=== PATIENT | male | born 1940 | race African-American/Black ===

== ENCOUNTER 2016-06-19 12:44 | Inpatient (IN) | payer MEDICARE, OTHER ==
[~2016-06-19] VITALS: Ht 185.4 cm; Wt 97.1 kg
[~2016-06-19 12:44] MED LIST: ACETAMINOPHEN325 M1 ORAL; ALLOPURINOL100 M1 ORAL; ALLOPURINOL300 M1 ORAL; AMLODIPINE BESYL5 MG ORAL; ASPIR 8181 MG ORAL; ASPIRIN EC81 MG ORAL; ATORVASTATIN CA20 MG ORAL; AVODART0.5 MG ORAL; CATAPRES0.1 MG ORAL; CLOBETASOL PROP15 G1 TOPIC; CLONIDINE0.1 MG ORAL; COMPAZINE25 MG RECTAL; DIOVAN80 MG ORAL; DOCUSATE SODIU100 MG ORAL; DOCUSATE SODIU250 MG ORAL; DRISDOL50000 UNIT ORAL; FEOSOL325 MG ORAL; FERROUS SULFAT325 M2 ORAL; FERROUS SULFAT325 MG ORAL; FINASTERIDE5 MG ORAL; FLOMAX0.4 MG ORAL; FLUCONAZOLE100 MG ORAL; GABAPENTIN300 MG ORAL; HYDROCHLOROTHIA25 MG ORAL; HYDROCODON-ACE1 EA13 ORAL; HYTRIN2 MG PO; IBUPROFEN600 MG ORAL; IMODIUM2 MG ORAL; INVANZ1 GM IVPB; KEFLEX500 MG ORAL; LEVAQUIN750 MG ORAL; LIPITOR20 MG ORAL; LOMOTIL TABLET1 EACH ORAL; LOPRESSOR25 M1 ORAL; LOVASTATIN40 MG ORAL; LOVENOX150 MG/1 M SUBQ; LYRICA50 MG ORAL; LYRICA75 M1 ORAL; Lidocaine TDERMAL; MARINOL2.5 MG ORAL; MARINOL5 MG ORAL; METRONIDAZOLE250 MG ORAL; METRONIDAZOLE500 MG ORAL; NITROFURANTOIN100 M2 ORAL; NORCO 10/3251 EA ORAL; NORCO 5-325 TA1 EACH ORAL; NORTRIPTYLINE H25 MG ORAL; NORVASC5 MG ORAL; OMEPRAZOLE20 M2 ORAL; OMEPRAZOLE20 M3 ORAL; PAMELOR25 MG ORAL; PROCHLORPERAZINE5 MG ORAL; PROMETH-CODEIN 65 ML PO; PROSCAR5 MG ORAL; RANITIDINE HCL150 MG ORAL; RENAGEL400 MG ORAL; TAMSULOSIN HCL0.4 MG ORAL; THIAMINE HCL100 MG ORAL; UNKNOWN BP MED; UNOBMED; VANCOMYCIN HCL125 MG PO; VANCOMYCIN250 MG/5 M ORAL; ZOVIRAX400 MG ORAL; ZYVOX600 MG ORAL
[2016-06-19] MEDS ORDERED: LANSOPRAZOLE15 MG ORAL (13:08)
[2016-06-19] MEDS ORDERED: ZOFRAN4 M3 ORAL (13:08)
[2016-06-19] MEDS ORDERED: ACYCLOVIR400 MG ORAL (13:08)
[2016-06-19] MEDS ORDERED: THALOMID50 MG PO (13:08)
--- NOTE | 2016-06-19 13:23 | Emergency Room Report ---
History of Present Illness General Chief Complaint: Lower Extremity Injury Source: Patient Present Illness HPI 75 YOM presents with bilateral lower extremity weakness, edema and left sided abd pain. States he "is still being treated for Cdiff" from previous admission and c/o continuous watery diarrhea. Denies fever/chills, rash, redness to extremities. Denies history of CHF. States he has had cardiac bypass in the past. Presents with large bag of his medications. Otherwise denies chest pain , SOB, dysuria, headache. Allergies: Coded Allergies: No Known Allergies (Unverified , 04/23/13) Patient History Past Medical History: see triage record, old chart reviewed, CAD, other - Cdiff Past Surgical History: none Pertinent Family History: none Social History: Denies: alcohol use, drug use, smoking Reviewed Nursing Documentation: PMH: Agreed, PSxH: Agreed Nursing Documentation-PMH Hx Cardiac Problems: Yes - [facility] Hx Hypertension: Yes Hx Pacemaker: No - C-DIFF,MYELOMA,CA Hx Asthma: No Hx COPD: No Hx Diabetes: No Hx Cancer: Yes - mulitple myeloma Hx Gastrointestinal Problems: Yes - appendectomy 2016, Chronic abdominal pain, Hx Dialysis: No Hx Neurological Problems: No Hx Cerebrovascular Accident: No Hx Seizures: No Hx Dizziness: No Hx Syncope: No Hx Headaches: No Review of Systems All Other Systems: negative except mentioned in HPI Physical Exam Vital Signs Date Time Temp Pulse Resp B/P Pulse Ox O2 Delivery O2 Flow Rate FiO2 06/19/16 12:29 98.2 64 16 145/64 98 Room Air Sp02 EP Interpretation: reviewed, normal General Appearance: normal inspection, well appearing, no apparent distress, alert Head: atraumatic ENT: normal ENT inspection, hearing grossly normal, normal voice Neck: normal inspection, full range of motion, supple, no bony tend Respiratory: normal inspection, lungs clear, normal breath sounds, no respiratory distress, no retraction, no wheezing Cardiovascular #1: regular rate, rhythm, no edema Gastrointestinal: normal inspection, normal bowel sounds, soft, no guarding, no hernia, other - Mild left sided abd ttp. No rebound, guarding. Genitourinary: no CVA tenderness Musculoskeletal: normal inspection, back normal, normal range of motion, Armond' s Sign negative Neurologic: normal inspection, alert, oriented x3, responsive, streets and buildings decorator III-XII nml as tested, motor strength/tone normal, speech normal Psychiatric: normal inspection, judgement/insight normal, mood/affect normal Skin: normal inspection, normal color, no rash, other - Bilateral lower extremities: shiny, hairless. 1+ pitting edema to mid calf. No erythema or sign of infection Medical Decision Making Medicare Attestation I Erica Linda MD hereby attest that the medical record entry for date of service, 05/10/16 accurately reflects signatures/notations that I made in my capacity as MD when I treated/diagnosed the above listed Medicare beneficiary. I attest that this information is true, accurate and complete to the best of my knowledge. I understand that any falsification, omission, or concealment of material fact may subject me to administrative, civil, or criminal liability. This patient warrants hospital admission for extreme of age and has a condition that cannot be treated as outpatient. Diagnostic Impression: Primary Impression: Edema Qualified Codes: R60.9 - Edema, unspecified Additional Impressions: Abdominal pain Qualified Codes: R10.32 - Left lower quadrant pain Diarrhea Qualified Codes: R19.7 - Diarrhea, unspecified CKD (chronic kidney disease) Qualified Codes: N18.9 - Chronic kidney disease, unspecified ER Course 75 YO M with acute on chronic bilateral leg swelling and weakness. No sign of infection. VSS. Afebrile. Lymphadema vs CHF vs cellulitis unlikely Left sided abd pain with watery diarrhea and recent tx for CDIFF: Patient placed on isolation. CDIFF assay pending. Will do CTAP Labs: No leuks. H&H stable. Mild elevated serumCr (similar to previous, possible baseline) Will endorse to Dr Villagomez at 319pm CTAP pending at time of endorsement; asked Dr Melgoza to followup result and inform Dr Villagomez EKG Diagnostic Results Rate: normal Rhythm: NSR ST Segments: no acute changes ASA given to the pt in ED: No Rhythm Strip Diag. Results EP Interpretation: yes Rate: 78 Rhythm: NSR, no PVC's, no ectopy Chest X-Ray Diagnostic Results EP Interpretation: Yes Findings: no consolidation, no effusion, no pneumothorax, no acute cardiopulmonary disease Number of Views: 1 Last Vital Signs Date Time Temp Pulse Resp B/P Pulse Ox O2 Delivery O2 Flow Rate FiO2 06/19/16 12:29 98.2 64 16 145/64 98 Room Air Status: improved Disposition: ADMITTED INPATIENT Condition: Serious ERICA LINDA M.D. Jun 19, 2016 13:23
[2016-06-19 14:52] LABS: BASOPHILS % (AUTO) 2.3 % (0.0-2.0); EOSINOPHILS % (AUTO) 0.4 % (0.0-3.0); LYMPHOCYTES % (AUTO) 18.3 % (20.0-45.0); MEAN CORPUSCULAR HEMOGLOBIN 31.9 PG (27.0-31.0); MEAN CORPUSCULAR HGB CONC 31.7 G/DL (32.0-36.0); MEAN CORPUSCULAR VOLUME 101 FL (80-99); MEAN PLATELET VOLUME 9.6 FL (6.5-10.1); MONOCYTES % (AUTO) 15.3 % (1.0-10.0); NEUTROPHILS % (AUTO) 63.7 % (45.0-75.0); PLATELET COUNT 122 K/UL (150-450); RED BLOOD COUNT 3.57 M/UL (4.70-6.10); RED CELL DISTRIBUTION WIDTH 14.9 % (11.6-14.8); WHITE BLOOD COUNT 7.7 K/UL (4.8-10.8)
[2016-06-19 15:07] LABS: TROPONIN I < 0.30 ng/mL (<=0.30)
[2016-06-19 15:09] LABS: ALANINE AMINOTRANSFERASE 26 U/L (3-41); ALBUMIN/GLOBULIN RATIO 1.6 (1.0-2.7); ANION GAP 16 (5-15); ASPARTATE AMINO TRANSFERASE 18 U/L (5-40); CALCIUM 8.8 mg/dL (8.6-10.2); CARBON DIOXIDE 22 mEQ/L (20-30); CHLORIDE 104 mEQ/L (98-107); CREATININE 1.3 mg/dL (0.7-1.2); HEMOLYSIS 7; SODIUM 142 mEQ/L (135-145); TOTAL PROTEIN 5.9 g/dL (6.6-8.7)
[2016-06-19 15:14] LABS: CKMB 1.6 ng/mL (< 6.7)
[2016-06-19 15:32] VITALS: BP 161/85
[2016-06-19] MEDS ORDERED: Nitroglycerin Subl 0.4mg tab (Bottle Of 25) SL PRN (16:00)
[2016-06-19] MEDS ORDERED: Miralax 17gm pkt ORAL PRN (16:00)
[2016-06-19] MEDS ORDERED: Lyrica 75mg cap ORAL PRN (16:00)
[2016-06-19] MEDS ORDERED: Mylanta II UD 30ml ORAL PRN (16:00)
--- NOTE | 2016-06-19 16:08 | Consultation ---
History of Present Illness General Date patient seen: Jun 19, 2016 Chief Complaint: Lower Extremity Injury Reason for Consultation: difficulty breathing Present Illness HPI 75 YOM presents with bilateral lower extremity weakness, edema and left sided abd pain. The patient says his abdominal pain was affecting his breathing, the patient states he has had more trouble breathing since his abdominal pain started. Patient denies any recent pnumonia or sputum production. Also denies cough, but admits to a 1 pack a day smoking habit since early adolescence. Patient also states he has had cardiac bypass in the past. Allergies: Coded Allergies: No Known Allergies (Unverified , 04/23/13) Medication History Scheduled Acyclovir* (Acyclovir*), 400 MG ORAL BID, (Reported) Allopurinol* (Allopurinol*), 300 MG ORAL DAILY Amlodipine Besylate (Norvasc), 5 MG ORAL DAILY Aspirin Ec* (Aspirin Ec*), 81 MG ORAL DAILY Atorvastatin Calcium* (Lipitor*), 20 MG ORAL BEDTIME Clonidine Hcl* (Catapres*), 0.1 MG ORAL EVERY 6 HOURS, (Reported) Diphenoxylate Hcl/Atropine (Lomotil Tablet), 5 MG ORAL TID Dronabinol* (Marinol*), 5 MG ORAL BID Ferrous Sulfate (Feosol), 325 MG ORAL DAILY Finasteride (Finasteride), 5 MG ORAL DAILY Lansoprazole* (Lansoprazole*), 15 MG ORAL DAILY, (Reported) Metoprolol Tartrate (Metoprolol Tartrate), 25 MG ORAL Q12HR Nortriptyline HCl (Nortriptyline HCl), 25 MG ORAL QHS Ranitidine Hcl* (Zantac*), 150 MG ORAL BEDTIME Tamsulosin HCl (Flomax), 0.4 MG ORAL BID Thalidomide (Thalomid), 50 MG PO DAILY, (Reported) Scheduled PRN Acetaminophen* (Acetaminophen*), 650 MG ORAL Q4H PRN Clonidine HCl (Clonidine HCl), 0.1 MG ORAL Q8H PRN for sbp>170 Hydrocodone Bit/Acetaminophen 10-325* (Hydrocodon-Acetaminophn 10-325*), 1 EA ORAL Q6H PRN for Severe Pain (Pain Scale 7-10) Loperamide HCl (Loperamide), 2 MG ORAL Q8H PRN for Diarrhea Ondansetron* (Zofran*), 4 MG ORAL Q6H PRN for Nausea & Vomiting, (Reported) Pregabalin* (Lyrica*), 75 MG ORAL BID PRN for nerve pain Discontinued Medications Nitrofurantoin Monohyd/M-Cryst* (Macrobid 100 Mg*), 100 MG ORAL EVERY 12 HOURS Discontinued Reason: MD discontinued med Patient History Healthcare decision maker Resuscitation status Advanced Directive on File Review of Systems Constitutional: Reports: malaise, weakness Respiratory: Reports: cough, shortness of breath Gastrointestinal: Reports: abdominal pain, nausea Physical Exam General Appearance: no apparent distress Lines, tubes and drains: peripheral HEENT: normocephalic, atraumatic, anicteric, PERRL Neck: non-tender, normal alignment Respiratory/Chest: chest wall non-tender, normal breath sounds, no respiratory distress, decreased breath sounds Breasts: no masses Cardiovascular/Chest: normal peripheral pulses, normal rate, regular rhythm Abdomen: normal bowel sounds, non tender, soft, no organomegaly Genitourinary/Rectal: normal genital exam, normal rectal exam Extremities: normal range of motion Skin Exam: normal pigmentation Neurologic: principal clerk II-XII grossly normal, no motor/sensory deficits Last 24 Hour Vital Signs Date Time Temp Pulse Resp B/P Pulse Ox O2 Delivery O2 Flow Rate FiO2 06/19/16 15:32 98.3 65 18 161/85 99 Room Air 06/19/16 12:29 98.2 64 16 145/64 98 Room Air Laboratory Tests Test 06/19/16 14:30 White Blood Count 7.7 K/UL (4.8-10.8) Red Blood Count 3.57 M/UL (4.70-6.10) L Hemoglobin 11.4 G/DL (14.2-18.0) L Hematocrit 36.0 % (42.0-52.0) L Mean Corpuscular Volume 101 FL (80-99) H Mean Corpuscular Hemoglobin 31.9 PG (27.0-31.0) H Mean Corpuscular Hemoglobin Concent 31.7 G/DL (32.0-36.0) L Red Cell Distribution Width 14.9 % (11.6-14.8) H Platelet Count 122 K/UL (150-450) L Mean Platelet Volume 9.6 FL (6.5-10.1) Neutrophils (%) (Auto) 63.7 % (45.0-75.0) Lymphocytes (%) (Auto) 18.3 % (20.0-45.0) L Monocytes (%) (Auto) 15.3 % (1.0-10.0) H Eosinophils (%) (Auto) 0.4 % (0.0-3.0) Basophils (%) (Auto) 2.3 % (0.0-2.0) H Sodium Level 142 mEQ/L (135-145) Potassium Level 4.0 mEQ/L (3.4-4.9) Chloride Level 104 mEQ/L (98-107) Carbon Dioxide Level 22 mEQ/L (20-30) Anion Gap 16 (5-15) H Blood Urea Nitrogen 13 mg/dL (7-23) Creatinine 1.3 mg/dL (0.7-1.2) H Estimat Glomerular Filtration Rate mL/min (>60) Glucose Level 91 mg/dL (74-106) Calcium Level 8.8 mg/dL (8.6-10.2) Total Bilirubin 0.7 mg/dL (0.0-1.2) Aspartate Amino Transf (AST/SGOT) 18 U/L (5-40) Alanine Aminotransferase (ALT/SGPT) 26 U/L (3-41) Alkaline Phosphatase 89 U/L (40-129) Total Creatine Kinase 70 U/L (38-174) Creatine Kinase MB 1.6 ng/mL (< 6.7) Creatine Kinase MB Relative Index 2.2 Troponin I < 0.30 ng/mL (<=0.30) Pro-B-Type Natriuretic Peptide 368 pg/mL (0-450) Total Protein 5.9 g/dL (6.6-8.7) L Albumin 3.7 g/dL (3.5-5.2) Globulin 2.2 g/dL Albumin/Globulin Ratio 1.6 (1.0-2.7) Height (Feet): 6 Height (Inches): 1.00 Weight (Pounds): 214 Medications Current Medications Medications (Trade) Dose Ordered Sig/Antionette Route PRN Reason Start Time Stop Time Status Last Admin Dose Admin Acetaminophen (Tylenol) 650 mg Q4H PRN ORAL fever 06/19/16 16:00 07/19/16 15:59 Al Hydroxide/Mg Hydroxide (Mylanta II) 30 ml Q6H PRN ORAL dyspepsia 06/19/16 16:00 07/19/16 15:59 Allopurinol (Zyloprim) 300 mg DAILY ORAL 06/20/16 09:00 07/20/16 08:59 UNV Amlodipine Besylate (Norvasc) 5 mg DAILY ORAL 06/20/16 09:00 07/20/16 08:59 Aspirin (Ecotrin) 81 mg DAILY ORAL 06/20/16 09:00 07/20/16 08:59 Atorvastatin Calcium (Lipitor) 20 mg BEDTIME ORAL 06/19/16 21:00 07/19/16 20:59 UNV Clonidine HCl (Catapres) 0.1 mg Q8H PRN ORAL sbp>170 06/19/16 16:00 07/19/16 15:59 Dextrose STAT PRN IV Hypoglycemia 06/19/16 16:00 07/19/16 15:59 Dextrose/Sodium Chloride (D5 0.45% NS) 1,000 ml @ 75 mls/hr [id number] IV 06/19/16 17:40 07/19/16 17:39 UNV Diphenhydramine HCl (Benadryl) 25 mg Q6H PRN ORAL Itching/Pruritis 06/19/16 16:00 07/19/16 15:59 Dronabinol (Marinol) 5 mg BID ORAL 06/19/16 18:00 07/19/16 17:59 UNV Finasteride (Proscar) 5 mg DAILY ORAL 06/20/16 09:00 07/20/16 08:59 Heparin Sodium (Porcine) (Heparin 5000 units/ml) 5,000 units EVERY 12 HOURS SUBQ 06/19/16 21:00 07/19/16 20:59 Metoprolol Tartrate (Lopressor) 25 mg Q12HR ORAL 06/19/16 21:00 07/19/16 20:59 Metronidazole (Flagyl) 100 ml @ 100 mls/hr Q8HR IVPB 06/19/16 22:00 06/26/16 21:59 UNV Morphine Sulfate (Morphine Sulfate) 2 mg EVERY 4 HOURS PRN IVP severe Pain (Pain Scale 7-10) 06/19/16 16:00 06/26/16 15:59 Nitroglycerin (Ntg) 0.4 mg Q5M X 3 DOSES PRN SL Prn Chest Pain 06/19/16 16:00 07/19/16 15:59 Nortriptyline HCl (Pamelor) 25 mg QHS ORAL 06/19/16 21:00 07/19/16 20:59 Ondansetron HCl (Zofran) 4 mg Q6H PRN IVP Nausea & Vomiting 06/19/16 16:00 07/19/16 15:59 Piperacillin Sod/ Tazobactam Sod 3.375 gm/Sodium Chloride 110 ml @ 220 mls/hr EVERY 6 HOURS IVPB 06/19/16 18:00 06/26/16 17:59 UNV Polyethylene Glycol (Miralax) 17 gm HSPRN PRN ORAL Constipation 06/19/16 16:00 07/19/16 15:59 Pregabalin (Lyrica) 75 mg BID PRN ORAL nerve pain 06/19/16 16:00 07/19/16 15:59 Tamsulosin HCl 0.4 mg 0.4 mg BID ORAL 06/19/16 18:00 07/19/16 17:59 Temazepam (Restoril) 15 mg HSPRN PRN ORAL Insomnia 06/19/16 16:00 06/26/16 15:59 Assessment/Plan Status: stable, progressing Assessment/Plan Assessment Cough and difficulty breathing secondary to abdominal pain Hx of tobacco smoking 1 pack/day more than 30 years HTN Plan O2 therapy Breathing tx as needed for SOB Anti-tussives as needed CXR preliminary reveals no acute infiltrate or edema. GOLDEN LIM Jun 19, 2016 16:08
[2016-06-19 17:13] VITALS: BP 150/80
[2016-06-19] MEDS: D5 1/2NS 1,000 ML IV SCH (18:02)
--- NOTE | 2016-06-19 18:24 | History & Physical ---
History and Physical History & Physicial Dictated for Int Med-Dr Villagomez no. [id number]. ELLY ELIAS Jun 19, 2016 18:24
[2016-06-19] MEDS: Tamsulosin 0.4mg cap ORAL SCH (18:58)
[2016-06-19] MEDS: Dronabinol 2.5mg Cap ORAL SCH (18:58)
[2016-06-19] MEDS: metroNIDAZOLE 500mg 100 ML IVPB SCH (18:58)
[2016-06-19 20:06] VITALS: BP 144/78
[2016-06-19] MEDS: Piperacillin/Tazobactam 3.375 GM in NS 110 ML IVPB SCH (20:36)
[2016-06-19] MEDS: Atorvastatin 20mg tab ORAL SCH (20:36)
[2016-06-19] MEDS: Metoprolol 25mg tab ORAL SCH (20:37)
[2016-06-19] MEDS: Heparin 5000 units/ml inj SUBQ SCH (20:38)
[2016-06-19] MEDS: Nortriptyline 25mg cap ORAL SCH (22:05)
[2016-06-19] MEDS: THALIDOMIDE 50 MG ORAL SCH (22:06)
[2016-06-19 23:59] VITALS: BP 125/69
[2016-06-20] MEDS: metroNIDAZOLE 500mg 100 ML IVPB SCH ×3 (01:42→20:14)
[2016-06-20 04:10] VITALS: BP 148/87
[2016-06-20] MEDS: Piperacillin/Tazobactam 3.375 GM in NS 110 ML IVPB SCH (05:04)
[2016-06-20] MEDS: D5 1/2NS 1,000 ML IV SCH ×2 (05:54→20:10)
[2016-06-20 07:29] LABS: EOSINOPHILS % (AUTO) 1.2 % (0.0-3.0); LYMPHOCYTES % (AUTO) 19.8 % (20.0-45.0); MEAN CORPUSCULAR HEMOGLOBIN 32.5 PG (27.0-31.0); MEAN CORPUSCULAR HGB CONC 32.7 G/DL (32.0-36.0); MEAN CORPUSCULAR VOLUME 99 FL (80-99); MEAN PLATELET VOLUME 8.9 FL (6.5-10.1); MONOCYTES % (AUTO) 15.1 % (1.0-10.0); PLATELET COUNT 124 K/UL (150-450); RED BLOOD COUNT 3.41 M/UL (4.70-6.10); RED CELL DISTRIBUTION WIDTH 14.3 % (11.6-14.8); WHITE BLOOD COUNT 5.7 K/UL (4.8-10.8)
[2016-06-20 08:00] VITALS: BP 148/88
[2016-06-20] MEDS: Heparin 5000 units/ml inj SUBQ SCH ×2 (08:01→20:16)
[2016-06-20 08:12] LABS: ALANINE AMINOTRANSFERASE 23 U/L (3-41); ALBUMIN/GLOBULIN RATIO 1.5 (1.0-2.7); AMYLASE 94 U/L (10-110); ANION GAP 16 (5-15); ASPARTATE AMINO TRANSFERASE 18 U/L (5-40); CALCIUM 9.2 mg/dL (8.6-10.2); CARBON DIOXIDE 23 mEQ/L (20-30); CHLORIDE 100 mEQ/L (98-107); CREATININE 1.3 mg/dL (0.7-1.2); HEMOLYSIS 10; LIPASE 30 U/L (< 60); POTASSIUM 4.1 mEQ/L (3.4-4.9); SODIUM 139 mEQ/L (135-145); TOTAL PROTEIN 5.6 g/dL (6.6-8.7)
--- NOTE | 2016-06-20 08:47 | History and Physical Report ---
DATE OF ADMISSION: 06/19/2016 CHIEF COMPLAINT: The patient is a 75-year-old male with history of amyloidosis of the GI tract who presents with complaint of leg swelling and bilateral leg weakness for one week. HISTORY OF PRESENT ILLNESS: The patient is a resident of a care home facility. The patient states he began to experience bilateral leg swelling and pain only prior to admission. The patient also has had watery diarrhea. The patient is worried his Clostridium difficile infection is back. The patient presented to [facility] emergency room. The patient was admitted for bilateral leg swelling to rule out acute deep venous thrombosis and diarrhea to rule out Clostridium difficile diarrhea. PAST MEDICAL HISTORY: Significant for, 1. Multiple myeloma, currently undergoing chemotherapy by Dr. Al. 2. Hypertension. 3. Anemia chronic disease. 4. History of prostate cancer. 5. History of coronary artery disease. 6. Amyloidosis of the gastrointestinal tract. PAST SURGICAL HISTORY: Significant for, 1. Perforated appendix with exploratory laparotomy and subsequent intra-abdominal abscess in 05/25/2015. 2. Prostatectomy in 2012. 3. Coronary artery bypass graft. CURRENT MEDICATIONS: 1. Tylenol 650 mg p.o. q.4 hours p.r.n. 2. Acyclovir 400 mg one tablet p.o. twice daily. 3. Allopurinol 300 mg one tablet p.o. daily. 4. Norvasc 5 mg one tablet p.o. daily. 5. Aspirin 81 mg one tablet p.o. daily. 6. Lipitor 20 mg one tablet p.o. at nightly. 7. Clonidine 0.1 mg one tablet p.o. q.8 hours p.r.n. 8. Lomotil one tablet p.o. three times daily. 9. Marinol 5 mg one tablet p.o. twice daily. 10. Iron sulfate 325 mg one tablet p.o. daily. 11. Finasteride 5 mg one tablet p.o. daily. 12. [place] 10/325 one tablet p.o. every 6 hours as needed. 13. Protonix 15 mg one tablet p.o. daily. 14. Imodium 2 mg p.r.n. diarrhea. 15. Metoprolol 25 mg one tablet p.o. twice daily. 16. Nortriptyline 25 mg one tablet p.o. at nightly. 17. Lyrica 75 mg one tablet p.o. twice daily. 18. Zantac 150 mg one tablet p.o. at nightly. 19. Flomax 0.4 mg one tablet p.o. twice daily. 20. 50 mg one tablet p.o. daily. ALLERGIES: No known drug allergies. SOCIAL HISTORY: The patient is a . The patient lives in a care home facility. The patient denies tobacco or alcohol use. PHYSICAL EXAMINATION: VITAL SIGNS: Temperature 98.2 degrees, respirations 16, pulse 64, blood pressure 145/64. GENERAL: The patient is a well-developed and well-nourished male, in no apparent distress. HEENT: Eyes pupils are equal and responsive to light and accommodation. Extraocular movements are intact. NECK: Supple without lymphadenopathy. CHEST: Lungs are clear to auscultation bilaterally without wheezes or rales. CARDIOVASCULAR: Regular rhythm and rate. S1, S2. No murmurs, rubs, or gallops. ABDOMEN: Soft, tender to palpation left upper quadrant otherwise no rebound or guarding noted. Positive bowel sounds are decreased. No evidence of hepatosplenomegaly . Currently, no rebound or guarding. EXTREMITIES: Bilateral trace edema. Otherwise, without clubbing or cyanosis. RECTAL: Refused. GENITAL: Refused. NEUROLOGIC: Cranial nerves II through XII are grossly intact without focal deficits. Motor strength is 5/5 bilaterally. Deep tendon reflexes 2+ plantar. LABORATORY STUDIES: WBC 7.7, hemoglobin 11.4, hematocrit 36.0, and platelets 122,000. Sodium 142, potassium 4.0, chloride 104, CO2 22, BUN 13, creatinine 1.3, and glucose 91. ASSESSMENT: This is a 75-year-old male, 1. Left upper quadrant pain. 2. Bilateral leg swelling. 3. Bilateral leg pain. 4. Weakness bilateral legs. 5. Diarrhea. 6. Gastrointestinal amyloidosis. 7. Multiple myeloma. 8. Hypertension. 9. Prostate cancer. 10. Coronary artery disease. 11. Anemia. TREATMENT: 1. Left upper quadrant pain. A Gastroenterology consultation with Dr. Rivera. The patient has a history of Clostridium difficile. A stool culture for Clostridium difficile is pending. 2. Bilateral leg swelling/pain/venous. A venous duplex Doppler bilateral lower extremities is pending to rule out deep venous thrombosis. This may be congestive heart failure secondary to coronary artery disease. BNP is pending. 3. Diarrhea as above. A Clostridium difficile culture is pending. A stool culture is pending as well. Gastroenterology consultation obtained with Dr. Rivera. Diarrhea may be secondary to gastrointestinal amyloidosis. 4. Gastrointestinal amyloidosis. A Gastroenterology consultation with Dr. Rivera. 5. Multiple myeloma. The patient is currently undergoing chemotherapy with Dr. Al. 6. Hypertension. Continue Norvasc as above. 7. History of prostate cancer. 8. Coronary artery disease. The patient is status post coronary artery bypass graft. 9. Anemia of chronic disease. Mando Schilling M.D. DR: Cynthia JOB#: [id number] CC:
[2016-06-20] MEDS: Aspirin EC 81mg tab ORAL SCH (09:31)
[2016-06-20] MEDS: Metoprolol 25mg tab ORAL SCH ×2 (09:31→20:16)
[2016-06-20] MEDS: Dronabinol 2.5mg Cap ORAL SCH ×2 (09:32→18:51)
[2016-06-20] MEDS: Tamsulosin 0.4mg cap ORAL SCH ×2 (09:32→18:52)
--- NOTE | 2016-06-20 10:06 | Diagnostic Imaging Report ---
Indications: Left lower quadrant abdominal pain Technique: Continuous helical CT imaging of the abdomen and pelvis was performed with automatic exposure control following administration of nonionic IV contrast only, on a Siemens sensation [address] scanner. Axial and coronal images were reconstructed at 5 mm slice thickness. No oral contrast was administered per requesting physician's order, despite no contraindications listed in either submitted clinical data or tech note.. CTDI volume(s): 19 mGy Total DLP: 1022 mGy-cm Findings: Comparison: 12/29/15 Lack of oral contrast limits evaluation of gastrointestinal tract, nondilated throughout. Linear metallic densities in the proximal gastric lumen. Stomach collapse. Distal mural thickening not excludable. Appendix absent. Surgical clips again noted adjacent to cecal tip. Apparent mural thickening of fluid distended segment of sigmoid colon on previous exam has significantly decreased. Some residual minimal mural thickening not excludable. No adjacent stranding, extraluminal gas or fluid collections. Gallbladder contracted, limiting evaluation. No obvious intraluminal stone, adjacent stranding or fluid. Again noted are small hiatal hernia, filter in infrarenal inferior vena cava, scattered arterial mural calcifications without obvious flow-limiting stenosis or occlusion, mild diffuse mural thickening of urinary bladder wall, enlarged prostate gland with central fluid-filled defect, anterior pelvic wall surgical incisional scar well-healed, all unchanged. Remainder visualized abdominopelvic anatomy demonstrates no other obvious acute abnormality. Subcentimeter calcified nodule again noted in anterior basal segment right pulmonary lower lobe. Small irregular pleural-based linear densities again noted and dependent portions both lung bases. Heart remains enlarged. Sternal wires again noted. Disc space narrowing with marginal osteophyte formation again noted in lumbar spine. Bilateral hip joint narrowing with marginal osteophyte formation, right subchondral cyst formation again noted. IMPRESSION: Limited evaluation gastrointestinal tract to lack of oral contrast, suboptimal distention. Pathologic mural thickening of distal stomach not excludable. Consider endoscopy for further evaluation as clinically indicated. Improvement in/resolution of apparent mural thickening of underdistended segment of sigmoid colon since previous exam. Residual minimal mural thickening not excludable, nonacute in appearance if real. No other evidence of acute abdominopelvic disease Stable chronic changes as described Written preliminary report placed in PACS 06/19/16 at 1618
--- NOTE | 2016-06-20 10:34 | Diagnostic Imaging Report ---
Indications: Chest pain Technique: Portable AP chest Findings: Comparison: 04/04/2016 Cardiac silhouette remains normal in size. Pulmonary vasculature remains within normal limits. Lungs and pleura remain clear. Mild calcification of the aortic arch, sternal wires and cardiomediastinal surgical clips again noted.. IMPRESSION: No evidence of acute disease, unchanged Stable chronic changes as described
[2016-06-20] MEDS: THALIDOMIDE 50 MG ORAL SCH (10:49)
--- NOTE | 2016-06-20 11:10 | Consultation ---
Consult Note Consult Note ID CONSULT: Mehran# [id number] Assessment/Plan ASSESSMENT: 75 y/o male with: // Chronic diarrhea 2/2 GI amyloidosis - negative C.difficile, improving per pt - CT A/P: Improvement in/resolution of apparent mural thickening of underdistended segment of sigmoid colon since previous exam. Residual minimal mural thickening not excludable. No other evidence of acute abdominopelvic disease - h/o repeatedly negative stool Cx, O&P, giardia // Afebrile without leukocytosis // Multiple myeloma // Intestinal amyloidosis // BLE edema r/o DVT ?h/o DVT ( evidence of IVC filter ) - doppler pending - BNP, albumin WNL // CAD SP CABG // CKD3 - stable // TCP // [facility] resident // MRSA, VRE colonized // NKDA // Full Code PLAN: - maria eugenia Can# 2, monitor pt off of ABX - f/u stool culture - f/u doppler - monitor CBC, temperatures - monitor BMP Thanks! Will follow MADELEINE GARCIA Jun 20, 2016 11:10
[2016-06-20 12:00] VITALS: BP 140/76
[2016-06-20 16:00] VITALS: BP 107/59
--- NOTE | 2016-06-20 18:43 | Internal Med Progress Note ---
Subjective Date of Service: Jun 20, 2016 Physician Name Mando Schilling Attending Physician Jovani Villagomez MD Current Medications Medications (Trade) Dose Ordered Sig/Antionette Route PRN Reason Start Time Stop Time Status Last Admin Dose Admin Acetaminophen (Tylenol) 650 mg Q4H PRN ORAL fever 06/19/16 16:00 07/19/16 15:59 Al Hydroxide/Mg Hydroxide (Mylanta II) 30 ml Q6H PRN ORAL dyspepsia 06/19/16 16:00 07/19/16 15:59 Allopurinol (Allopurinol) 300 mg DAILY ORAL 06/20/16 09:00 07/20/16 08:59 06/20/16 09:32 Amlodipine Besylate (Norvasc) 5 mg DAILY ORAL 06/20/16 09:00 07/20/16 08:59 06/20/16 09:31 Aspirin (Ecotrin) 81 mg DAILY ORAL 06/20/16 09:00 07/20/16 08:59 06/20/16 09:31 Atorvastatin Calcium (Lipitor) 20 mg BEDTIME ORAL 06/19/16 21:00 07/19/16 20:59 06/19/16 20:36 Clonidine HCl (Catapres) 0.1 mg Q8H PRN ORAL sbp>170 06/19/16 16:00 07/19/16 15:59 06/19/16 17:59 Dextrose STAT PRN IV Hypoglycemia 06/19/16 16:00 07/19/16 15:59 Dextrose/Sodium Chloride (D5 0.45% NS) 1,000 ml @ 75 mls/hr [id number] IV 06/19/16 17:30 07/19/16 17:29 06/20/16 05:54 Diphenhydramine HCl (Benadryl) 25 mg Q6H PRN ORAL Itching/Pruritis 06/19/16 16:00 07/19/16 15:59 Dronabinol (Marinol) 5 mg BID ORAL 06/19/16 18:00 07/19/16 17:59 06/20/16 09:32 Finasteride (Proscar) 5 mg DAILY ORAL 06/20/16 09:00 07/20/16 08:59 06/20/16 09:32 Heparin Sodium (Porcine) (Heparin 5000 units/ml) 5,000 units EVERY 12 HOURS SUBQ 06/19/16 21:00 07/19/16 20:59 Metoprolol Tartrate (Lopressor) 25 mg Q12HR ORAL 06/19/16 21:00 07/19/16 20:59 06/20/16 09:31 Metronidazole (Flagyl) 100 ml @ 100 mls/hr Q8H IVPB 06/19/16 18:00 06/26/16 17:59 06/20/16 09:32 Morphine Sulfate (Morphine Sulfate) 2 mg EVERY 4 HOURS PRN IVP severe Pain (Pain Scale 7-10) 06/19/16 16:00 06/26/16 15:59 Nitroglycerin (Ntg) 0.4 mg Q5M X 3 DOSES PRN SL Prn Chest Pain 06/19/16 16:00 07/19/16 15:59 Nortriptyline HCl (Pamelor) 25 mg QHS ORAL 06/19/16 21:00 07/19/16 20:59 06/19/16 22:05 Ondansetron HCl (Zofran) 4 mg Q6H PRN IVP Nausea & Vomiting 06/19/16 16:00 07/19/16 15:59 Patient Own Medication (Patient's Own Med) 1 ea DAILY ORAL 06/19/16 21:00 07/19/16 20:59 06/20/16 10:49 Polyethylene Glycol (Miralax) 17 gm HSPRN PRN ORAL Constipation 06/19/16 16:00 07/19/16 15:59 Pregabalin (Lyrica) 75 mg BID PRN ORAL nerve pain 06/19/16 16:00 07/19/16 15:59 Tamsulosin HCl 0.4 mg 0.4 mg BID ORAL 06/19/16 18:00 07/19/16 17:59 06/20/16 09:32 Temazepam (Restoril) 15 mg HSPRN PRN ORAL Insomnia 06/19/16 16:00 06/26/16 15:59 Allergies: Coded Allergies: No Known Allergies (Unverified , 04/23/13) ROS Limited/Unobtainable: No Constitutional: Reports: no symptoms HEENT: Reports: no symptoms Cardiovascular: Reports: no symptoms Respiratory: Reports: no symptoms Gastrointestinal/Abdominal: Reports: abdomen distended, abdominal pain, diarrhea Genitourinary: Reports: no symptoms Neurologic/Psychiatric: Reports: no symptoms Subjective 75 YO M admitted with abdominal pain and bilat leg swelling. Cover for Int Med- Dr Villagomez. Diarrhea improving. Objective Last Vital Signs Date Time Temp Pulse Resp B/P Pulse Ox O2 Delivery O2 Flow Rate FiO2 06/20/16 16:00 98.0 68 18 107/59 99 Room Air General Appearance: WD/WN, no apparent distress, alert EENT: PERRL/EOMI, normal ENT inspection Neck: non-tender, normal alignment, supple, normal inspection Cardiovascular: normal peripheral pulses, normal rate, regular rhythm, no gallop/murmur, no JVD Respiratory/Chest: chest wall non-tender, lungs clear, normal breath sounds, no respiratory distress, no accessory muscle use Abdomen: no organomegaly, no mass, decreased bowel sounds, distended, guarding , tender Extremities: normal range of motion Edema: trace edema 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 normal, no motor/sensory deficits Skin: normal pigmentation, warm/dry Laboratory Tests Test 06/20/16 04:40 White Blood Count 5.7 K/UL (4.8-10.8) Red Blood Count 3.41 M/UL (4.70-6.10) L Hemoglobin 11.1 G/DL (14.2-18.0) L Hematocrit 33.8 % (42.0-52.0) L Mean Corpuscular Volume 99 FL (80-99) Mean Corpuscular Hemoglobin 32.5 PG (27.0-31.0) H Mean Corpuscular Hemoglobin Concent 32.7 G/DL (32.0-36.0) Red Cell Distribution Width 14.3 % (11.6-14.8) Platelet Count 124 K/UL (150-450) L Mean Platelet Volume 8.9 FL (6.5-10.1) Neutrophils (%) (Auto) 62.0 % (45.0-75.0) Lymphocytes (%) (Auto) 19.8 % (20.0-45.0) L Monocytes (%) (Auto) 15.1 % (1.0-10.0) H Eosinophils (%) (Auto) 1.2 % (0.0-3.0) Basophils (%) (Auto) 2.0 % (0.0-2.0) Activated Partial Thromboplast Time 27 SEC (23-33) Sodium Level 139 mEQ/L (135-145) Potassium Level 4.1 mEQ/L (3.4-4.9) Chloride Level 100 mEQ/L (98-107) Carbon Dioxide Level 23 mEQ/L (20-30) Anion Gap 16 (5-15) H Blood Urea Nitrogen 12 mg/dL (7-23) Creatinine 1.3 mg/dL (0.7-1.2) H Estimat Glomerular Filtration Rate mL/min (>60) Glucose Level 91 mg/dL (74-106) Calcium Level 9.2 mg/dL (8.6-10.2) Total Bilirubin 1.0 mg/dL (0.0-1.2) Aspartate Amino Transf (AST/SGOT) 18 U/L (5-40) Alanine Aminotransferase (ALT/SGPT) 23 U/L (3-41) Alkaline Phosphatase 78 U/L (40-129) Total Protein 5.6 g/dL (6.6-8.7) L Albumin 3.4 g/dL (3.5-5.2) L Globulin 2.2 g/dL Albumin/Globulin Ratio 1.5 (1.0-2.7) Amylase Level 94 U/L (10-110) Lipase 30 U/L (< 60) Microbiology Date/Time Source Procedure Growth Status 06/19/16 17:30 Stool Clostridium difficile Toxin Assay - Final Complete Intake and Output 06/19/16 06/20/16 18:59 06:59 Intake Total 1200 ml Output Total 100 ml 700 ml Balance -100 ml 500 ml Intake Oral 600 ml IV Total 600 ml Output Urine Total 700 ml Stool Total 100 ml # Voids 2 # Bowel Movements 4 1 Assessment/Plan Problem List: (1) Leg pain, bilateral (2) Diarrhea Assessment & Plan: C. Diff neg. D/C antibiotics per ID. (3) Prostate cancer (4) LUQ abdominal pain Assessment & Plan: Due to amyloidosis (5) Multiple myeloma Assessment & Plan: Followed by Dr Al (6) Amyloidosis Assessment & Plan: Gastrointestinal-See GI note. (7) Hypertension Assessment & Plan: Cont lopressor (8) CAD (coronary artery disease) (9) Anemia Status: not improved MANDO SCHILLING Jun 20, 2016 18:43
--- NOTE | 2016-06-20 19:13 | Pulmonology Progress Note ---
Assessment/Plan Assessment/Plan Assessment/Plan Status: stable, progressing Assessment/Plan Assessment Cough and difficulty breathing secondary to abdominal pain Hx of tobacco smoking 1 pack/day more than 30 years HTN Plan O2 therapy Breathing tx as needed for SOB Anti-tussives as needed CXR preliminary reveals no acute infiltrate or edema. Subjective ROS Limited/Unobtainable: No Constitutional: Reports: anorexia, fatigue Respiratory: Reports: dry cough, shortness of breath Gastrointestinal/Abdominal: Reports: bloating, constipation, nausea Allergies: Coded Allergies: No Known Allergies (Unverified , 04/23/13) Objective Last 24 Hour Vital Signs Date Time Temp Pulse Resp B/P Pulse Ox O2 Delivery O2 Flow Rate FiO2 06/20/16 16:00 98.0 68 18 107/59 99 Room Air 06/20/16 12:00 98.8 68 18 140/76 99 Room Air 06/20/16 09:31 68 148/87 06/20/16 09:31 68 148/87 06/20/16 08:00 97.9 63 18 148/88 99 Room Air 06/20/16 04:10 97.9 68 18 148/87 99 Room Air 06/19/16 23:59 98.1 60 18 125/69 100 Room Air 06/19/16 20:37 67 144/78 06/19/16 20:06 98.1 67 20 144/78 100 Room Air Intake and Output 06/19/16 06/20/16 19:00 07:00 Intake Total 75 ml 1125 ml Output Total 100 ml 700 ml Balance -25 ml 425 ml Intake Oral 600 ml IV Total 75 ml 525 ml Output Urine Total 700 ml Stool Total 100 ml # Voids 2 # Bowel Movements 4 1 General Appearance: no acute distress HEENT: normocephalic, atraumatic, PERRL Respiratory/Chest: chest wall non-tender, decreased breath sounds, accessory muscle use Cardiovascular: normal peripheral pulses, normal rate, regular rhythm, no JVD Abdomen: normal bowel sounds, soft, non tender, no organomegaly, non distended Genitourinary: normal external genitalia Extremities: no cyanosis 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, no motor/sensory deficits Microbiology Date/Time Source Procedure Growth Status 06/19/16 17:30 Stool Clostridium difficile Toxin Assay - Final Complete Laboratory Tests 06/20/16 04:40: White Blood Count 5.7, Red Blood Count 3.41L, Hemoglobin 11.1L, Hematocrit 33.8L , Mean Corpuscular Volume 99, Mean Corpuscular Hemoglobin 32.5H, Mean Corpuscular Hemoglobin Concent 32.7, Red Cell Distribution Width 14.3, Platelet Count 124L, Mean Platelet Volume 8.9, Neutrophils (%) (Auto) 62.0, Lymphocytes ( %) (Auto) 19.8L, Monocytes (%) (Auto) 15.1H, Eosinophils (%) (Auto) 1.2, Basophils (%) (Auto) 2.0, Activated Partial Thromboplast Time 27, Sodium Level 139, Potassium Level 4.1, Chloride Level 100, Carbon Dioxide Level 23, Anion Gap 16H, Blood Urea Nitrogen 12, Creatinine 1.3H, Estimat Glomerular Filtration Rate , Glucose Level 91, Calcium Level 9.2, Total Bilirubin 1.0, Aspartate Amino Transf (AST/SGOT) 18, Alanine Aminotransferase (ALT/SGPT) 23, Alkaline Phosphatase 78, Total Protein 5.6L, Albumin 3.4L, Globulin 2.2, Albumin/ Globulin Ratio 1.5, Amylase Level 94, Lipase 30 Current Medications Medications (Trade) Dose Ordered Sig/Antionette Route PRN Reason Start Time Stop Time Status Last Admin Dose Admin Acetaminophen (Tylenol) 650 mg Q4H PRN ORAL fever 06/19/16 16:00 07/19/16 15:59 Al Hydroxide/Mg Hydroxide (Mylanta II) 30 ml Q6H PRN ORAL dyspepsia 06/19/16 16:00 07/19/16 15:59 Allopurinol (Allopurinol) 300 mg DAILY ORAL 06/20/16 09:00 07/20/16 08:59 06/20/16 09:32 Amlodipine Besylate (Norvasc) 5 mg DAILY ORAL 06/20/16 09:00 07/20/16 08:59 06/20/16 09:31 Aspirin (Ecotrin) 81 mg DAILY ORAL 06/20/16 09:00 07/20/16 08:59 06/20/16 09:31 Atorvastatin Calcium (Lipitor) 20 mg BEDTIME ORAL 06/19/16 21:00 07/19/16 20:59 06/19/16 20:36 Clonidine HCl (Catapres) 0.1 mg Q8H PRN ORAL sbp>170 06/19/16 16:00 07/19/16 15:59 06/19/16 17:59 Dextrose STAT PRN IV Hypoglycemia 06/19/16 16:00 07/19/16 15:59 Dextrose/Sodium Chloride (D5 0.45% NS) 1,000 ml @ 75 mls/hr [id number] IV 06/19/16 17:30 07/19/16 17:29 06/20/16 05:54 Diphenhydramine HCl (Benadryl) 25 mg Q6H PRN ORAL Itching/Pruritis 06/19/16 16:00 07/19/16 15:59 Dronabinol (Marinol) 5 mg BID ORAL 06/19/16 18:00 07/19/16 17:59 06/20/16 18:51 Finasteride (Proscar) 5 mg DAILY ORAL 06/20/16 09:00 07/20/16 08:59 06/20/16 09:32 Heparin Sodium (Porcine) (Heparin 5000 units/ml) 5,000 units EVERY 12 HOURS SUBQ 06/19/16 21:00 07/19/16 20:59 Metoprolol Tartrate (Lopressor) 25 mg Q12HR ORAL 06/19/16 21:00 07/19/16 20:59 06/20/16 09:31 Metronidazole (Flagyl) 100 ml @ 100 mls/hr Q8H IVPB 06/19/16 18:00 06/26/16 17:59 06/20/16 09:32 Morphine Sulfate (Morphine Sulfate) 2 mg EVERY 4 HOURS PRN IVP severe Pain (Pain Scale 7-10) 06/19/16 16:00 06/26/16 15:59 Nitroglycerin (Ntg) 0.4 mg Q5M X 3 DOSES PRN SL Prn Chest Pain 06/19/16 16:00 07/19/16 15:59 Nortriptyline HCl (Pamelor) 25 mg QHS ORAL 06/19/16 21:00 07/19/16 20:59 06/19/16 22:05 Ondansetron HCl (Zofran) 4 mg Q6H PRN IVP Nausea & Vomiting 06/19/16 16:00 07/19/16 15:59 Patient Own Medication (Patient's Own Med) 1 ea DAILY ORAL 06/19/16 21:00 07/19/16 20:59 06/20/16 10:49 Polyethylene Glycol (Miralax) 17 gm HSPRN PRN ORAL Constipation 06/19/16 16:00 07/19/16 15:59 Pregabalin (Lyrica) 75 mg BID PRN ORAL nerve pain 06/19/16 16:00 07/19/16 15:59 Tamsulosin HCl 0.4 mg 0.4 mg BID ORAL 06/19/16 18:00 07/19/16 17:59 06/20/16 18:52 Temazepam (Restoril) 15 mg HSPRN PRN ORAL Insomnia 06/19/16 16:00 06/26/16 15:59 GOLDEN LIM Jun 20, 2016 19:13
[2016-06-20 20:00] VITALS: BP 149/82
[2016-06-20] MEDS: Atorvastatin 20mg tab ORAL SCH (20:15)
[2016-06-20] MEDS: Nortriptyline 25mg cap ORAL SCH (20:15)
[2016-06-21] MEDS: metroNIDAZOLE 500mg 100 ML IVPB SCH ×3 (01:11→17:45)
[2016-06-21 01:38] VITALS: BP 140/76
--- NOTE | 2016-06-21 01:57 | Consultation ---
DATE OF CONSULTATION: 06/20/2016 CHIEF COMPLAINT: I was asked to see this patient for evaluation of amyloidosis of gastrointestinal tract. HISTORY OF PRESENT ILLNESS: The patient is pleasant 75-year-old man with a history of amyloidosis with deposit seen in both upper and lower gastrointestinal who comes in with leg swelling. The patient stated that he noted his legs become more so lately and wants to have them treated. The patient has had a longstanding history of severe diarrhea and previously Clostridium difficile was treated and subsequently the patient underwent endoscopy and, colonoscopy with biopsies showing amyloid deposits. For this, he was treated with around the clock daily antidiarrheals, he responded reasonably well with maintenance of his diet and bowel movements. He was discharged to the [place] [facility] and has had some exacerbations of diarrhea but overall doing well. The patient is also concerned that he may have Clostridium difficile colitis. 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 PAST SURGICAL HISTORY: Status post appendectomy after rupture, prostatectomy, history coronary bypass graft procedure. MEDICATIONS: See chart list for details. FAMILY HISTORY: Noncontributory. SOCIAL HISTORY: The patient resides in a [place] [facility] facility. He is a . He does not smoke or drink. REVIEW OF SYSTEMS: Otherwise negative. PHYSICAL EXAMINATION: GENERAL: The patient is a pleasant man, seen in his room. HEENT: Normocephalic and atraumatic. Sclerae anicteric. Oropharynx clear. NECK: Supple. CHEST: Clear to auscultation. CARDIOVASCULAR: Revealed a regular rate. ABDOMEN: Soft. EXTREMITIES: Revealed 1 to 2 +edema bilaterally. NEUROLOGIC: Nonfocal. LABORATORY DATA: Noted. ASSESSMENT: This patient presents with history of chronic diarrhea due to amyloid deposits in the upper and lower gastrointestinal tract. At this point, however, is amyloidosis of the gastrointestinal tract seems to be stable and perhaps the chemotherapy is the result of some of his symptoms. He can be given Lomotil as needed as both as inpatient and as an outpatient. I will follow his symptoms and the prescribe accordingly. In the meantime, the patient also has leg edema which typically could be due to low albumin. The low albumin itself can be from gastrointestinal tract or protein loss however at this point his albumin is only mildly low. I will repeat his albumin with intravenous hydration in the hospital stay to see if there is any fluctuation. In the meantime, he should also be evaluated for possible need for diuresis or cardiac functional testing. RECOMMENDATIONS: 1. Lomotil as needed for diarrhea. 2. Monitor albumin. 3. Consider diuretics and cardiac evaluation. Thank you for asking me to participate in the care of this patient. Krunal Rivera M.D. DR: Jonathan JOB#: [id number] CC:
--- NOTE | 2016-06-21 01:57 | Consultation ---
DATE OF CONSULTATION: 06/20/2016 INFECTIOUS DISEASE CONSULTATION: CONSULTING PHYSICIAN: Sanya Villanueva M.D. REFERRING PHYSICIAN: Jovani Villagomez M.D. REASON FOR CONSULTATION: Diarrhea. HISTORY OF PRESENT ILLNESS: This is a 75-year-old male with a history of chronic diarrhea secondary to intestinal amyloidosis and also history of C. difficile, admitted on 06/19/2016 with bilateral lower extremity edema and weakness. The patient reports his diarrhea is actually improved and only worsens after eating, which would be consistent with GI amyloidosis. States the stools are more formed than usual. His C. difficile toxin is pending. He is afebrile without leukocytosis. A bilateral lower extremity Doppler ultrasound is pending. BNP is 368 and albumin level was 3.4. He has been started on empiric Zosyn and Flagyl and ID now consulted to assist in management. PAST MEDICAL HISTORY: 1. Hypertension. 2. BPH. 3. Gout. 4. Chronic kidney disease, stage 3. 5. Coronary artery disease. 6. Multiple myeloma. 7. Intestinal amyloidosis. 8. Anemia of chronic disease. 9. History of C. difficile. PAST SURGICAL HISTORY: 1. Coronary artery bypass grafting with vein harvesting from the right lower extremity. 2. Appendectomy. 3. Prostatectomy. ALLERGIES: No known drug allergies. MEDICATIONS: 1. Zosyn day #2. 2. Flagyl day #2. 3. Please refer to MAR for rest of medication list. FAMILY HISTORY: Noncontributory. SOCIAL HISTORY: The patient is resident of a long-term. No active tobacco, alcohol, or illicit drug abuse. REVIEW OF SYSTEMS: As per history of present illness. Ten systems reviewed. All pertinent positives and negatives are noted. PHYSICAL EXAMINATION: VITAL SIGNS: Maximum temperature is 98.3 degrees, blood pressure 140/87, heart rate in the 60s, respiratory rate 18, and saturating 99% on room air. GENERAL: No apparent distress. Nontoxic appearing. CARDIOVASCULAR: Regular rate and rhythm. No murmurs. Sternotomy incision well healed. PULMONARY: Clear to auscultation bilaterally. ABDOMEN: Bowel sounds are present. Soft and nondistended. Mild left upper quadrant tenderness. EXTREMITIES: Bilateral lower extremity edema. Surgical scars in the right lower extremity. NEUROLOGIC: Alert and oriented x3, nonfocal. LABORATORY DATA: White blood cell count 5.7, hemoglobin 11.1, and platelets 124,000. Sodium is 139, potassium 4.1, chloride 100, bicarbonate 23, BUN 12, and creatinine 1.3. Lipase and liver function tests are within normal limits. Troponin is negative x1. BNP is 368. Albumin is 3.4. MICROBIOLOGY: 1. On 06/19/2016, C. diff toxin is negative. 2. On 06/19/2016, stool culture is pending. IMAGIN. On 06/19/2016, CT abdomen and pelvis improved renal thickening from previous. Please refer to full report for full details. 2. On 06/19/2016, chest x-ray no acute findings. 3. On 06/19/2016, bilateral lower extremity Doppler ultrasound is pending. ASSESSMENT: 1. Chronic diarrhea secondary to gastrointestinal amyloidosis. C. difficile toxin is negative. Diarrhea is improving, per the patient. CT abdomen and pelvis was also improved. 2. Afebrile without leukocytosis. 3. Multiple myeloma. 4. Intestinal amyloidosis. 5. Bilateral lower extremity edema, rule out deep venous thrombosis. Questionable history of deep venous thrombosis, as evidence of inferior vena-cava filter on CAT scan. A Doppler ultrasound is pending. BNP and albumin are within normal limits. 6. Coronary artery disease, status post coronary artery bypass grafting. 7. Chronic kidney disease, stage 3, stable. 8. Thrombocytopenia. 9. senior care resident. 10. Methicillin-resistant Staphylococcus aureus and vancomycin-resistant Enterococcus colonized. 11. No known drug allergies. 12. Full Code. PLAN: 1. Discontinue Zosyn and Flagyl and monitor the patient off of antibiotics. 2. Follow up stool culture. 3. Follow up Doppler. 4. Monitor CBC and temperatures. 5. Monitor BMP. Thank you. We will follow. Sanya Villanueva M.D. DR: Marco Antonio JOB#: [id number] CC:
[2016-06-21] MEDS: D5 1/2NS 1,000 ML IV SCH ×2 (03:30→09:00)
[2016-06-21 07:11] LABS: ANION GAP 15 (5-15); CARBON DIOXIDE 22 mEQ/L (20-30); CHLORIDE 106 mEQ/L (98-107); CREATININE 1.3 mg/dL (0.7-1.2); HEMOLYSIS 7; SODIUM 143 mEQ/L (135-145)
[2016-06-21 07:47] LABS: BASOPHILS % (AUTO) 1.9 % (0.0-2.0); EOSINOPHILS % (AUTO) 2.1 % (0.0-3.0); LYMPHOCYTES % (AUTO) 18.8 % (20.0-45.0); MEAN CORPUSCULAR HEMOGLOBIN 32.7 PG (27.0-31.0); MEAN CORPUSCULAR HGB CONC 32.6 G/DL (32.0-36.0); MEAN CORPUSCULAR VOLUME 100 FL (80-99); MEAN PLATELET VOLUME 10.5 FL (6.5-10.1); MONOCYTES % (AUTO) 11.3 % (1.0-10.0); PLATELET COUNT 125 K/UL (150-450); RED BLOOD COUNT 3.55 M/UL (4.70-6.10); WHITE BLOOD COUNT 5.3 K/UL (4.8-10.8)
[2016-06-21 08:00] VITALS: BP 139/76
[2016-06-21] MEDS: THALIDOMIDE 50 MG ORAL SCH (08:47)
[2016-06-21] MEDS: Aspirin EC 81mg tab ORAL SCH (08:48)
[2016-06-21] MEDS: Metoprolol 25mg tab ORAL SCH ×2 (08:49→20:27)
[2016-06-21] MEDS: Tamsulosin 0.4mg cap ORAL SCH ×2 (08:49→17:46)
[2016-06-21] MEDS: Dronabinol 2.5mg Cap ORAL SCH ×2 (08:49→17:45)
[2016-06-21] MEDS: Morphine Sulfate 2mg/ml Inj IVP PRN (08:50)
[2016-06-21] MEDS: Heparin 5000 units/ml inj SUBQ SCH ×2 (09:00→20:27)
[2016-06-21 12:00] VITALS: BP 120/67
[2016-06-21 16:00] VITALS: BP 130/76
--- NOTE | 2016-06-21 16:20 | Pulmonology Progress Note ---
Assessment/Plan Assessment/Plan Assessment/Plan Status: stable, progressing Assessment/Plan Assessment Cough and difficulty breathing secondary to abdominal pain Hx of tobacco smoking 1 pack/day more than 30 years HTN Plan O2 therapy Breathing tx as needed for SOB Anti-tussives as needed CXR preliminary reveals no acute infiltrate or edema. Subjective ROS Limited/Unobtainable: No Constitutional: Reports: fatigue Respiratory: Reports: dry cough, shortness of breath Gastrointestinal/Abdominal: Reports: bloating, nausea Allergies: Coded Allergies: No Known Allergies (Unverified , 04/23/13) Objective Last 24 Hour Vital Signs Date Time Temp Pulse Resp B/P Pulse Ox O2 Delivery O2 Flow Rate FiO2 06/21/16 12:00 97.7 61 21 120/67 98 Room Air 06/21/16 09:20 97.7 06/21/16 08:49 65 139/76 06/21/16 08:48 65 139/76 06/21/16 08:00 97.7 65 20 139/76 99 Room Air 06/21/16 01:38 98.2 80 18 140/76 100 Room Air 06/20/16 20:16 78 115/76 06/20/16 20:00 97.7 88 20 149/82 100 Room Air Intake and Output 06/20/16 06/21/16 19:00 07:00 Intake Total 700 ml 1880 ml Output Total 1000 ml Balance 700 ml 880 ml Intake Oral 600 ml IV Total 700 ml 1280 ml Output Urine Total 700 ml Stool Total 300 ml # Voids 4 # Bowel Movements 2 2 General Appearance: no acute distress HEENT: normocephalic, atraumatic, PERRL Respiratory/Chest: chest wall non-tender, lungs clear, normal breath sounds Cardiovascular: normal peripheral pulses, normal rate, regular rhythm, no JVD Abdomen: normal bowel sounds, soft, non tender, no organomegaly Genitourinary: normal external genitalia Extremities: no cyanosis Skin: no rash, no lesions 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 Resulted 06/19/16 17:30 Stool Clostridium difficile Toxin Assay - Final Complete Laboratory Tests 06/21/16 04:50: White Blood Count 5.3, Red Blood Count 3.55L, Hemoglobin 11.6L, Hematocrit 35.6L , Mean Corpuscular Volume 100H, Mean Corpuscular Hemoglobin 32.7H, Mean Corpuscular Hemoglobin Concent 32.6, Red Cell Distribution Width 15.0H, Platelet Count 125L, Mean Platelet Volume 10.5H, Neutrophils (%) (Auto) 66.0, Lymphocytes (%) (Auto) 18.8L, Monocytes (%) (Auto) 11.3H, Eosinophils (%) (Auto ) 2.1, Basophils (%) (Auto) 1.9, Sodium Level 143, Potassium Level 4.0, Chloride Level 106, Carbon Dioxide Level 22, Anion Gap 15, Blood Urea Nitrogen 19, Creatinine 1.3H, Estimat Glomerular Filtration Rate , Glucose Level 110H, Calcium Level 9.0 Current Medications Medications (Trade) Dose Ordered Sig/Antionette Route PRN Reason Start Time Stop Time Status Last Admin Dose Admin Acetaminophen (Tylenol) 650 mg Q4H PRN ORAL fever 06/19/16 16:00 07/19/16 15:59 Al Hydroxide/Mg Hydroxide (Mylanta II) 30 ml Q6H PRN ORAL dyspepsia 06/19/16 16:00 07/19/16 15:59 Allopurinol (Allopurinol) 300 mg DAILY ORAL 06/20/16 09:00 07/20/16 08:59 06/21/16 08:48 Amlodipine Besylate (Norvasc) 5 mg DAILY ORAL 06/20/16 09:00 07/20/16 08:59 06/21/16 08:48 Aspirin (Ecotrin) 81 mg DAILY ORAL 06/20/16 09:00 07/20/16 08:59 06/21/16 08:48 Atorvastatin Calcium (Lipitor) 20 mg BEDTIME ORAL 06/19/16 21:00 07/19/16 20:59 06/20/16 20:15 Clonidine HCl (Catapres) 0.1 mg Q8H PRN ORAL sbp>170 06/19/16 16:00 07/19/16 15:59 06/19/16 17:59 Dextrose STAT PRN IV Hypoglycemia 06/19/16 16:00 07/19/16 15:59 Dextrose/Sodium Chloride (D5 0.45% NS) 1,000 ml @ 75 mls/hr [id number] IV 06/19/16 17:30 2/13/17 17:29 06/21/16 09:00 Diphenhydramine HCl (Benadryl) 25 mg Q6H PRN ORAL Itching/Pruritis 06/19/16 16:00 07/19/16 15:59 Dronabinol (Marinol) 5 mg BID ORAL 06/19/16 18:00 07/19/16 17:59 06/21/16 08:49 Finasteride (Proscar) 5 mg DAILY ORAL 06/20/16 09:00 07/20/16 08:59 06/21/16 08:48 Heparin Sodium (Porcine) (Heparin 5000 units/ml) 5,000 units EVERY 12 HOURS SUBQ 06/19/16 21:00 07/19/16 20:59 Metoprolol Tartrate (Lopressor) 25 mg Q12HR ORAL 06/19/16 21:00 07/19/16 20:59 06/21/16 08:49 Metronidazole (Flagyl) 100 ml @ 100 mls/hr Q8H IVPB 06/19/16 18:00 06/26/16 17:59 06/21/16 09:41 Morphine Sulfate (Morphine Sulfate) 2 mg EVERY 4 HOURS PRN IVP severe Pain (Pain Scale 7-10) 06/19/16 16:00 06/26/16 15:59 06/21/16 08:50 Nitroglycerin (Ntg) 0.4 mg Q5M X 3 DOSES PRN SL Prn Chest Pain 06/19/16 16:00 07/19/16 15:59 Nortriptyline HCl (Pamelor) 25 mg QHS ORAL 06/19/16 21:00 07/19/16 20:59 06/20/16 20:15 Ondansetron HCl (Zofran) 4 mg Q6H PRN IVP Nausea & Vomiting 06/19/16 16:00 07/19/16 15:59 Patient Own Medication (Patient's Own Med) 1 ea DAILY ORAL 06/19/16 21:00 07/19/16 20:59 06/21/16 08:47 Polyethylene Glycol (Miralax) 17 gm HSPRN PRN ORAL Constipation 06/19/16 16:00 07/19/16 15:59 Pregabalin (Lyrica) 75 mg BID PRN ORAL nerve pain 06/19/16 16:00 07/19/16 15:59 Tamsulosin HCl 0.4 mg 0.4 mg BID ORAL 06/19/16 18:00 07/19/16 17:59 06/21/16 08:49 Temazepam (Restoril) 15 mg HSPRN PRN ORAL Insomnia 06/19/16 16:00 06/26/16 15:59 GOLDEN LIM Jun 21, 2016 16:20
[2016-06-21] MEDS ORDERED: Loperamide 2mg cap ORAL PRN (17:15)
--- NOTE | 2016-06-21 17:35 | Infectious Diseases Prog Note ---
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 Residual minimal mural thickening not excludable. No other evidence of acute abdominopelvic disease - h/o repeatedly negative stool Cx, O&P, giardia // Afebrile without leukocytosis // Multiple myeloma // Intestinal amyloidosis // BLE edema r/o DVT ?h/o DVT ( evidence of IVC filter ) - doppler(-) DVT - BNP, albumin WNL // CAD SP CABG // CKD3 - stable // TCP // [facility] resident // MRSA, VRE colonized // NKDA // Full Code PLAN: - ok to DC off of ABX from ID standpoint ( 06/20 MOY zosyn, flagyl d# 2 ) - f/u stool culturer - monitor CBC, temperatures - monitor BMP Subjective Allergies: Coded Allergies: No Known Allergies (Unverified , 04/23/13) Subjective remains afebrile. no watery diarrhea Objective Vital Signs Last 24 Hour Vital Signs Date Time Temp Pulse Resp B/P Pulse Ox O2 Delivery O2 Flow Rate FiO2 06/21/16 16:00 98.0 77 18 130/76 100 Room Air 06/21/16 12:00 97.7 61 21 120/67 98 Room Air 06/21/16 09:20 97.7 06/21/16 08:49 65 139/76 06/21/16 08:48 65 139/76 06/21/16 08:00 97.7 65 20 139/76 99 Room Air 06/21/16 01:38 98.2 80 18 140/76 100 Room Air 06/20/16 20:16 78 115/76 06/20/16 20:00 97.7 88 20 149/82 100 Room Air Height (Feet): 6 Height (Inches): 1.00 Weight (Pounds): 214 General Appearance: no acute distress Respiratory/Chest: no respiratory distress Cardiovascular: normal rate, regular rhythm Abdomen: normal bowel sounds, soft, non tender, non distended Microbiology Date/Time Source Procedure Growth Status 06/20/16 16:00 Stool Stool Culture - Preliminary NORMAL FECAL MIREYA. Resulted 06/19/16 17:30 Stool Clostridium difficile Toxin Assay - Final Complete Laboratory Tests Test 06/21/16 04:50 White Blood Count 5.3 K/UL (4.8-10.8) Red Blood Count 3.55 M/UL (4.70-6.10) L Hemoglobin 11.6 G/DL (14.2-18.0) L Hematocrit 35.6 % (42.0-52.0) L Mean Corpuscular Volume 100 FL (80-99) H Mean Corpuscular Hemoglobin 32.7 PG (27.0-31.0) H Mean Corpuscular Hemoglobin Concent 32.6 G/DL (32.0-36.0) Red Cell Distribution Width 15.0 % (11.6-14.8) H Platelet Count 125 K/UL (150-450) L Mean Platelet Volume 10.5 FL (6.5-10.1) H Neutrophils (%) (Auto) 66.0 % (45.0-75.0) Lymphocytes (%) (Auto) 18.8 % (20.0-45.0) L Monocytes (%) (Auto) 11.3 % (1.0-10.0) H Eosinophils (%) (Auto) 2.1 % (0.0-3.0) Basophils (%) (Auto) 1.9 % (0.0-2.0) Sodium Level 143 mEQ/L (135-145) Potassium Level 4.0 mEQ/L (3.4-4.9) Chloride Level 106 mEQ/L (98-107) Carbon Dioxide Level 22 mEQ/L (20-30) Anion Gap 15 (5-15) Blood Urea Nitrogen 19 mg/dL (7-23) Creatinine 1.3 mg/dL (0.7-1.2) H Estimat Glomerular Filtration Rate mL/min (>60) Glucose Level 110 mg/dL (74-106) H Calcium Level 9.0 mg/dL (8.6-10.2) Current Medications Medications (Trade) Dose Ordered Sig/Antionette Route PRN Reason Start Time Stop Time Status Last Admin Dose Admin Acetaminophen (Tylenol) 650 mg Q4H PRN ORAL fever 06/19/16 16:00 07/19/16 15:59 Al Hydroxide/Mg Hydroxide (Mylanta II) 30 ml Q6H PRN ORAL dyspepsia 06/19/16 16:00 07/19/16 15:59 Allopurinol (Allopurinol) 300 mg DAILY ORAL 06/20/16 09:00 07/20/16 08:59 06/21/16 08:48 Amlodipine Besylate (Norvasc) 5 mg DAILY ORAL 06/20/16 09:00 07/20/16 08:59 06/21/16 08:48 Aspirin (Ecotrin) 81 mg DAILY ORAL 06/20/16 09:00 07/20/16 08:59 06/21/16 08:48 Atorvastatin Calcium (Lipitor) 20 mg BEDTIME ORAL 06/19/16 21:00 07/19/16 20:59 06/20/16 20:15 Clonidine HCl (Catapres) 0.1 mg Q8H PRN ORAL sbp>170 06/19/16 16:00 07/19/16 15:59 06/19/16 17:59 Dextrose STAT PRN IV Hypoglycemia 06/19/16 16:00 07/19/16 15:59 Dextrose/Sodium Chloride (D5 0.45% NS) 1,000 ml @ 75 mls/hr [id number] IV 06/19/16 17:30 07/19/16 17:29 06/21/16 09:00 Diphenhydramine HCl (Benadryl) 25 mg Q6H PRN ORAL Itching/Pruritis 06/19/16 16:00 07/19/16 15:59 Dronabinol (Marinol) 5 mg BID ORAL 06/19/16 18:00 07/19/16 17:59 06/21/16 08:49 Finasteride (Proscar) 5 mg DAILY ORAL 06/20/16 09:00 07/20/16 08:59 06/21/16 08:48 Heparin Sodium (Porcine) (Heparin 5000 units/ml) 5,000 units EVERY 12 HOURS SUBQ 06/19/16 21:00 07/19/16 20:59 Loperamide HCl (Imodium) 2 mg Q4H PRN ORAL Diarrhea 06/21/16 17:15 07/21/16 17:14 06/21/16 17:28 Metoprolol Tartrate (Lopressor) 25 mg Q12HR ORAL 06/19/16 21:00 07/19/16 20:59 06/21/16 08:49 Metronidazole (Flagyl) 100 ml @ 100 mls/hr Q8H IVPB 06/19/16 18:00 06/26/16 17:59 06/21/16 09:41 Morphine Sulfate (Morphine Sulfate) 2 mg EVERY 4 HOURS PRN IVP severe Pain (Pain Scale 7-10) 06/19/16 16:00 06/26/16 15:59 06/21/16 08:50 Nitroglycerin (Ntg) 0.4 mg Q5M X 3 DOSES PRN SL Prn Chest Pain 06/19/16 16:00 07/19/16 15:59 Nortriptyline HCl (Pamelor) 25 mg QHS ORAL 06/19/16 21:00 07/19/16 20:59 06/20/16 20:15 Ondansetron HCl (Zofran) 4 mg Q6H PRN IVP Nausea & Vomiting 06/19/16 16:00 07/19/16 15:59 Patient Own Medication (Patient's Own Med) 1 ea DAILY ORAL 06/19/16 21:00 07/19/16 20:59 06/21/16 08:47 Polyethylene Glycol (Miralax) 17 gm HSPRN PRN ORAL Constipation 06/19/16 16:00 07/19/16 15:59 Pregabalin (Lyrica) 75 mg BID PRN ORAL nerve pain 06/19/16 16:00 07/19/16 15:59 Tamsulosin HCl 0.4 mg 0.4 mg BID ORAL 06/19/16 18:00 07/19/16 17:59 06/21/16 08:49 Temazepam (Restoril) 15 mg HSPRN PRN ORAL Insomnia 06/19/16 16:00 06/26/16 15:59 MADELEINE GARCIA Jun 21, 2016 17:35
[2016-06-21 20:10] VITALS: BP 134/66
--- NOTE | 2016-06-21 20:17 | Internal Med Progress Note ---
Subjective Date of Service: Jun 21, 2016 Physician Name Elly Schilling Attending Physician Jovani Villagomez MD Current Medications Medications (Trade) Dose Ordered Sig/Antionette Route PRN Reason Start Time Stop Time Status Last Admin Dose Admin Acetaminophen (Tylenol) 650 mg Q4H PRN ORAL fever 06/19/16 16:00 07/19/16 15:59 Al Hydroxide/Mg Hydroxide (Mylanta II) 30 ml Q6H PRN ORAL dyspepsia 06/19/16 16:00 07/19/16 15:59 Allopurinol (Allopurinol) 300 mg DAILY ORAL 06/20/16 09:00 07/20/16 08:59 06/21/16 08:48 Amlodipine Besylate (Norvasc) 5 mg DAILY ORAL 06/20/16 09:00 07/20/16 08:59 06/21/16 08:48 Aspirin (Ecotrin) 81 mg DAILY ORAL 06/20/16 09:00 07/20/16 08:59 06/21/16 08:48 Atorvastatin Calcium (Lipitor) 20 mg BEDTIME ORAL 06/19/16 21:00 07/19/16 20:59 06/20/16 20:15 Clonidine HCl (Catapres) 0.1 mg Q8H PRN ORAL sbp>170 06/19/16 16:00 07/19/16 15:59 06/19/16 17:59 Dextrose STAT PRN IV Hypoglycemia 06/19/16 16:00 07/19/16 15:59 Dextrose/Sodium Chloride (D5 0.45% NS) 1,000 ml @ 75 mls/hr [id number] IV 06/19/16 17:30 07/19/16 17:29 06/21/16 09:00 Diphenhydramine HCl (Benadryl) 25 mg Q6H PRN ORAL Itching/Pruritis 06/19/16 16:00 07/19/16 15:59 Dronabinol (Marinol) 5 mg BID ORAL 06/19/16 18:00 07/19/16 17:59 06/21/16 17:45 Finasteride (Proscar) 5 mg DAILY ORAL 06/20/16 09:00 07/20/16 08:59 06/21/16 08:48 Heparin Sodium (Porcine) (Heparin 5000 units/ml) 5,000 units EVERY 12 HOURS SUBQ 06/19/16 21:00 07/19/16 20:59 Loperamide HCl (Imodium) 2 mg Q4H PRN ORAL Diarrhea 06/21/16 17:15 07/21/16 17:14 06/21/16 17:28 Metoprolol Tartrate (Lopressor) 25 mg Q12HR ORAL 06/19/16 21:00 07/19/16 20:59 06/21/16 08:49 Metronidazole (Flagyl) 100 ml @ 100 mls/hr Q8H IVPB 06/19/16 18:00 06/26/16 17:59 06/21/16 17:45 Morphine Sulfate (Morphine Sulfate) 2 mg EVERY 4 HOURS PRN IVP severe Pain (Pain Scale 7-10) 06/19/16 16:00 06/26/16 15:59 06/21/16 08:50 Nitroglycerin (Ntg) 0.4 mg Q5M X 3 DOSES PRN SL Prn Chest Pain 06/19/16 16:00 07/19/16 15:59 Nortriptyline HCl (Pamelor) 25 mg QHS ORAL 06/19/16 21:00 07/19/16 20:59 06/20/16 20:15 Ondansetron HCl (Zofran) 4 mg Q6H PRN IVP Nausea & Vomiting 06/19/16 16:00 07/19/16 15:59 Patient Own Medication (Patient's Own Med) 1 ea DAILY ORAL 06/19/16 21:00 07/19/16 20:59 06/21/16 08:47 Polyethylene Glycol (Miralax) 17 gm HSPRN PRN ORAL Constipation 06/19/16 16:00 07/19/16 15:59 Pregabalin (Lyrica) 75 mg BID PRN ORAL nerve pain 06/19/16 16:00 07/19/16 15:59 Tamsulosin HCl 0.4 mg 0.4 mg BID ORAL 06/19/16 18:00 07/19/16 17:59 06/21/16 17:46 Temazepam (Restoril) 15 mg HSPRN PRN ORAL Insomnia 06/19/16 16:00 06/26/16 15:59 Allergies: Coded Allergies: No Known Allergies (Unverified , 04/23/13) ROS Limited/Unobtainable: No Constitutional: Reports: no symptoms HEENT: Reports: no symptoms Cardiovascular: Reports: no symptoms Respiratory: Reports: no symptoms Gastrointestinal/Abdominal: Reports: abdominal pain Genitourinary: Reports: no symptoms Neurologic/Psychiatric: Reports: no symptoms Subjective 75 YO M admitted with abdominal pain and bilat leg swelling. Cover for Int Antonio- Dr Villagomez. Diarrhea improving. Objective Last Vital Signs Date Time Temp Pulse Resp B/P Pulse Ox O2 Delivery O2 Flow Rate FiO2 06/21/16 20:10 97.7 70 20 134/66 99 Room Air Laboratory Tests Test 06/21/16 04:50 White Blood Count 5.3 K/UL (4.8-10.8) Red Blood Count 3.55 M/UL (4.70-6.10) L Hemoglobin 11.6 G/DL (14.2-18.0) L Hematocrit 35.6 % (42.0-52.0) L Mean Corpuscular Volume 100 FL (80-99) H Mean Corpuscular Hemoglobin 32.7 PG (27.0-31.0) H Mean Corpuscular Hemoglobin Concent 32.6 G/DL (32.0-36.0) Red Cell Distribution Width 15.0 % (11.6-14.8) H Platelet Count 125 K/UL (150-450) L Mean Platelet Volume 10.5 FL (6.5-10.1) H Neutrophils (%) (Auto) 66.0 % (45.0-75.0) Lymphocytes (%) (Auto) 18.8 % (20.0-45.0) L Monocytes (%) (Auto) 11.3 % (1.0-10.0) H Eosinophils (%) (Auto) 2.1 % (0.0-3.0) Basophils (%) (Auto) 1.9 % (0.0-2.0) Sodium Level 143 mEQ/L (135-145) Potassium Level 4.0 mEQ/L (3.4-4.9) Chloride Level 106 mEQ/L (98-107) Carbon Dioxide Level 22 mEQ/L (20-30) Anion Gap 15 (5-15) Blood Urea Nitrogen 19 mg/dL (7-23) Creatinine 1.3 mg/dL (0.7-1.2) H Estimat Glomerular Filtration Rate mL/min (>60) Glucose Level 110 mg/dL (74-106) H Calcium Level 9.0 mg/dL (8.6-10.2) Microbiology Date/Time Source Procedure Growth Status 06/20/16 16:00 Stool Stool Culture - Preliminary NORMAL FECAL MIREYA. Resulted 06/19/16 17:30 Stool Clostridium difficile Toxin Assay - Final Complete Intake and Output 06/20/16 06/21/16 19:00 07:00 Intake Total 700 ml 1880 ml Output Total 1000 ml Balance 700 ml 880 ml Intake Oral 600 ml IV Total 700 ml 1280 ml Output Urine Total 700 ml Stool Total 300 ml # Voids 4 # Bowel Movements 2 2 Objective General Appearance: WD/WN, no apparent distress, alert EENT: PERRL/EOMI, normal ENT inspection Neck: non-tender, normal alignment, supple, normal inspection Cardiovascular: normal peripheral pulses, normal rate, regular rhythm, no gallop/murmur, no JVD Respiratory/Chest: chest wall non-tender, lungs clear, normal breath sounds, no respiratory distress, no accessory muscle use Abdomen: no organomegaly, no mass, decreased bowel sounds, distended, guarding , tender Extremities: normal range of motion Edema: trace edema Neurologic: program development specialist II-XII grossly normal, no motor/sensory deficits Skin: normal pigmentation, warm/dry Assessment/Plan Problem List: (1) Leg pain, bilateral (2) Diarrhea Assessment & Plan: C. Diff neg. D/C antibiotics per ID. (3) Prostate cancer (4) LUQ abdominal pain Assessment & Plan: Due to amyloidosis (5) Multiple myeloma Assessment & Plan: Followed by Dr Al (6) Amyloidosis Assessment & Plan: Gastrointestinal-See GI note. (7) Hypertension Assessment & Plan: Cont lopressor (8) CAD (coronary artery disease) (9) Anemia (10) Edema Assessment & Plan: Cardiology consult - R/O CHF Status: not improved ELLY SCHILLING Jun 21, 2016 20:17
[2016-06-21] MEDS: Atorvastatin 20mg tab ORAL SCH (20:27)
[2016-06-21] MEDS: Nortriptyline 25mg cap ORAL SCH (20:27)
--- NOTE | 2016-06-21 21:32 | General Progress Note ---
Assessment/Plan Assessment/Plan Assessment (1) Leg pain, bilateral (2) Diarrhea (3) Prostate cancer (4) LUQ abdominal pain (5) Multiple myeloma (6) Amyloidosis (7) Hypertension (8) CAD (coronary artery disease) (9) Anemia (10) Edema Recommendations - Lomotil daily - push po - follow symptoms - Onc f/u Subjective Allergies: Coded Allergies: No Known Allergies (Unverified , 04/23/13) Subjective diarrhea back 3-4 daily C Diff (-) off of Lomotil Rx Objective Last 24 Hour Vital Signs Date Time Temp Pulse Resp B/P Pulse Ox O2 Delivery O2 Flow Rate FiO2 06/21/16 20:27 70 134/66 06/21/16 20:10 97.7 70 20 134/66 99 Room Air 06/21/16 16:00 98.0 77 18 130/76 100 Room Air 06/21/16 12:00 97.7 61 21 120/67 98 Room Air 06/21/16 09:20 97.7 06/21/16 08:49 65 139/76 06/21/16 08:48 65 139/76 06/21/16 08:00 97.7 65 20 139/76 99 Room Air 06/21/16 01:38 98.2 80 18 140/76 100 Room Air Intake and Output 06/20/16 06/21/16 19:00 07:00 Intake Total 700 ml 1880 ml Output Total 1000 ml Balance 700 ml 880 ml Intake Oral 600 ml IV Total 700 ml 1280 ml Output Urine Total 700 ml Stool Total 300 ml # Voids 4 # Bowel Movements 2 2 Laboratory Tests 06/21/16 04:50: White Blood Count 5.3, Red Blood Count 3.55L, Hemoglobin 11.6L, Hematocrit 35.6L , Mean Corpuscular Volume 100H, Mean Corpuscular Hemoglobin 32.7H, Mean Corpuscular Hemoglobin Concent 32.6, Red Cell Distribution Width 15.0H, Platelet Count 125L, Mean Platelet Volume 10.5H, Neutrophils (%) (Auto) 66.0, Lymphocytes (%) (Auto) 18.8L, Monocytes (%) (Auto) 11.3H, Eosinophils (%) (Auto ) 2.1, Basophils (%) (Auto) 1.9, Sodium Level 143, Potassium Level 4.0, Chloride Level 106, Carbon Dioxide Level 22, Anion Gap 15, Blood Urea Nitrogen 19, Creatinine 1.3H, Estimat Glomerular Filtration Rate , Glucose Level 110H, Calcium Level 9.0 Height (Feet): 6 Height (Inches): 1.00 Weight (Pounds): 214 Objective WDWN NCAT supple CTA RRR Soft NT ND no edema non focal VIOLA FOSTER Jun 21, 2016 21:32
[2016-06-22] VITALS: BP 138/72
[2016-06-22] MEDS: D5 1/2NS 1,000 ML IV SCH (01:00)
[2016-06-22] MEDS: metroNIDAZOLE 500mg 100 ML IVPB SCH (01:00)
[2016-06-22 04:00] VITALS: BP 132/69
[2016-06-22 07:21] LABS: BASOPHILS % (AUTO) 2.2 % (0.0-2.0); EOSINOPHILS % (AUTO) 2.3 % (0.0-3.0); LYMPHOCYTES % (AUTO) 16.7 % (20.0-45.0); MEAN CORPUSCULAR HEMOGLOBIN 32.5 PG (27.0-31.0); MEAN CORPUSCULAR HGB CONC 32.7 G/DL (32.0-36.0); MEAN CORPUSCULAR VOLUME 99 FL (80-99); MEAN PLATELET VOLUME 8.4 FL (6.5-10.1); MONOCYTES % (AUTO) 14.6 % (1.0-10.0); NEUTROPHILS % (AUTO) 64.2 % (45.0-75.0); PLATELET COUNT 131 K/UL (150-450); RED BLOOD COUNT 3.53 M/UL (4.70-6.10); RED CELL DISTRIBUTION WIDTH 15.1 % (11.6-14.8)
[2016-06-22 07:37] LABS: TROPONIN I < 0.30 ng/mL (<=0.30)
[2016-06-22 07:41] LABS: ANION GAP 16 (5-15); CALCIUM 9.1 mg/dL (8.6-10.2); CARBON DIOXIDE 24 mEQ/L (20-30); CHLORIDE 98 mEQ/L (98-107); CREATININE 1.3 mg/dL (0.7-1.2); HEMOLYSIS 27; POTASSIUM 4.4 mEQ/L (3.4-4.9); SODIUM 138 mEQ/L (135-145)
[2016-06-22 08:15] VITALS: BP 141/81
[2016-06-22] MEDS: Metoprolol 25mg tab ORAL SCH (08:18)
[2016-06-22] MEDS: Aspirin EC 81mg tab ORAL SCH (08:18)
[2016-06-22] MEDS: Tamsulosin 0.4mg cap ORAL SCH (08:19)
[2016-06-22] MEDS: Morphine Sulfate 2mg/ml Inj IVP PRN (08:20)
[2016-06-22] MEDS ORDERED: Lomotil 2.5mg tab ORAL SCH (09:00)
[2016-06-22] MEDS: Dronabinol 2.5mg Cap ORAL SCH (09:00)
[2016-06-22] MEDS: Heparin 5000 units/ml inj SUBQ SCH (09:00)
[2016-06-22] MEDS: THALIDOMIDE 50 MG ORAL SCH (09:53)
[2016-06-22] MEDS ORDERED: metroNIDAZOLE 500mg tab ORAL SCH (10:00)
[2016-06-22 11:58] VITALS: BP 127/65
--- NOTE | 2016-06-22 14:47 | Discharge Summary ---
Discharge Summary Hospital Course Date of Admission Jun 19, 2016 at 13:59 Date of Discharge Admitting Diagnosis WEAKNESS BIENVENIDO Echols is a 75 year old male who was admitted on Jun 19, 2016 at 13: 59 for Weakness Hospital Course The patient was seen and examined at bedside and all new and available data was reviewed in the patients chart. Last 24 Hour Vital Signs Date Time Temp Pulse Resp B/P Pulse Ox O2 Delivery O2 Flow Rate FiO2 06/22/16 11:58 98.0 63 20 127/65 100 Room Air 06/22/16 10:57 97.7 06/22/16 08:50 97.7 06/22/16 08:18 68 141/81 06/22/16 08:18 68 141/81 06/22/16 08:15 97.7 68 20 141/81 100 Room Air 06/22/16 04:00 97.6 62 18 132/69 98 Room Air 06/22/16 00:00 97.5 64 18 138/72 98 06/21/16 20:27 70 134/66 06/21/16 20:10 97.7 70 20 134/66 99 Room Air 06/21/16 16:00 98.0 77 18 130/76 100 Room Air General Appearance: WD/WN, no apparent distress, alert EENT: PERRL/EOMI, normal ENT inspection Neck: non-tender, normal alignment, supple, normal inspection Cardiovascular: normal peripheral pulses, normal rate, regular rhythm, no gallop Respiratory/Chest: chest wall non-tender, lungs clear, normal breath sounds, no respiratory distress. Abdomen: no organomegaly, no mass, decreased bowel sounds, distended, guarding , tender Extremities: normal range of motion Edema: trace edema Neurologic: cloth tester II-XII grossly normal, no motor/sensory deficits Skin: normal pigmentation, warm/dry Plan: DC to boarding Care. (Patient was seen earlier today. Signature timestamp does not reflect patient encounter time) Jovani Villagomez MD Discharge Discharge Disposition Patient was discharged to Home with Home Health() Discharge Diagnoses: Jovani Villagomez MD Jun 22, 2016 14:47
[2016-06-22] MEDS ORDERED: Tubing IV Secondary IV ONE (15:14)
[2016-06-22] MEDS ORDERED: D5 1/2NS 1000ml IV ONE ×2 (15:14)
--- NOTE | 2016-06-22 15:53 | Cardiology Report ---
APPROVED REPORT EKG Measurement Heart [id number] Normal sinus rhythm Moderate voltage criteria for LVH, may be normal variant Possible anterior infarct, age undeterminted Abnormal ECG
--- NOTE | 2016-06-26 17:13 | Diagnostic Imaging Report ---
APPROVED REPORT CPT Code: 58671 Present Symptoms Lower Extremity Pain: Bilateral BILATERAL: Imaging reveals a patent deep venous system bilaterally. There is no evidence of thrombus within the femoral, popliteal or tibial segments. The greater saphenous veins are also within normal limits. Doppler indicates normal spontaneous flow within these segments.
== END 2016-06-22 15:15 | disposition home health service (06) | DRG 546 ==
LOC: EDBD 12:44 → EMR 13:27 → 4W 13:59 → EDBEDREQ 15:08
DX: E85.4 Organ-limited amyloidosis (principal); C90.00 Multiple myeloma not having achieved remission; I82.509 Chronic embolism and thrombosis of unspecified deep veins of unspecified lower extremity; I12.9 Hypertensive chronic kidney disease with stage 1 through stage 4 chronic kidney disease, or unspecified chronic kidney disease; N18.3 Chronic kidney disease, stage 3 (moderate); I25.10 Atherosclerotic heart disease of native coronary artery without angina pectoris; Z95.1 Presence of aortocoronary bypass graft; Z79.899 Other long term (current) drug therapy; D63.8 Anemia in other chronic diseases classified elsewhere; Z85.46 Personal history of malignant neoplasm of prostate; Z87.891 Personal history of nicotine dependence; R10.12 Left upper quadrant pain; N40.0 Benign prostatic hyperplasia without lower urinary tract symptoms; M79.605 Pain in left leg; M79.604 Pain in right leg; R60.9 Edema, unspecified; R53.1 Weakness
CPT/HCPCS: 36415; 71010; 74177; 80048; 80053; 82150; 82550; 82553; 83690; 83880; 84484; 85025; 85730; 87045; 87493; 93005; 93970

== ENCOUNTER 2017-03-28 08:41 | Inpatient (IN) | payer MEDICARE, OTHER ==
[~2017-03-28] VITALS: Ht 185.4 cm; Wt 90.3 kg
[~2017-03-28 08:41] MED LIST changes: +ACYCLOVIR400 MG ORAL; +LANSOPRAZOLE15 MG ORAL; +THALOMID50 MG PO; +ZOFRAN4 M3 ORAL
--- NOTE | 2017-03-28 08:56 | Emergency Room Report ---
History of Present Illness General Source: Patient Present Illness HPI 76-year-old male with leukemia, on chemotherapy for the last 3 years, CAD status post CABG, p/w abdominal pain x 3 days and diarrhea. Patient states pain started gradually, localized to left lower quadrant, non radiating, burning/sharp in nature, intermittent. No relieving or exacerbating factors. Severity is 5/10. Patient reports nausea no vomiting, more than 10 episodes of watery nonbloody diarrhea per day Denies fever or chills. No recent travel no sick contacts. No recent antibiotic use Denies nvd. Allergies: Coded Allergies: No Known Allergies (Unverified , 04/23/13) Patient History Past Medical History: see triage record Past Surgical History: none Pertinent Family History: none Reviewed Nursing Documentation: PMH: Agreed, PSxH: Agreed Nursing Documentation-PMH Hx Cardiac Problems: Yes - [place] Hx Hypertension: Yes Hx Pacemaker: No - C-DIFF,MYELOMA,CA Hx Asthma: No Hx COPD: No Hx Diabetes: No Hx Cancer: Yes - multiple myeloma Hx Gastrointestinal Problems: Yes - appendectomy 2016, Chronic abdominal pain, Hx Dialysis: No Hx Neurological Problems: No Hx Cerebrovascular Accident: No Hx Seizures: No Hx Dizziness: No Hx Syncope: No Hx Headaches: No Review of Systems All Other Systems: negative except mentioned in HPI Physical Exam Sp02 EP Interpretation: reviewed, normal General Appearance: alert, GCS 15, non-toxic, mild distress Head: normocephalic, atraumatic Eyes: bilateral eye normal inspection, bilateral eye PERRL, bilateral eye EOMI ENT: normal ENT inspection, normal pharynx, normal voice, moist mucus membranes Neck: normal inspection, full range of motion, supple Respiratory: normal inspection, lungs clear, normal breath sounds, no respiratory distress, no retraction, no wheezing, speaking full sentences, chest symmetrical Cardiovascular #1: normal inspection, regular rate, rhythm, no edema, normal capillary refill, other - well healed surgical scar on chest Cardiovascular #2: 2+ radial (R), 2+ radial (L) Gastrointestinal: soft, non-distended, no guarding, other - mild LLQ tenderness no guarding or reboud Genitourinary: no CVA tenderness Musculoskeletal: normal inspection, back normal, normal range of motion, non- tender Neurologic: normal inspection, alert, oriented x3, responsive, motor strength/ tone normal, sensory intact, normal gait, speech normal Psychiatric: normal inspection, judgement/insight normal, memory normal Skin: normal inspection, normal color, no rash, warm/dry, well hydrated, normal turgor Medical Decision Making Diagnostic Impression: Primary Impression: Diarrhea Additional Impression: Abdominal pain ER Course 76-year-old male with diarrhea and abdominal pain Differential Diagnosis: Gastritis, gastroenteritis, cholecystitis, appendicitis, diverticulitis, SBO, mesenteric ischemia, UTI/pyelo Plan: Basic labs, ua, ekg pain control, IVF CTA abdo pelvis ER course: Patient has remained stable during ED stay. Continues to feel weak, unable to tolerate PO CT abdo pelvis neg for acute process will admit Disposition: Pt requires admission for dehydration, diarrhea, inability to tolerate po, weakness D/W Dr. Villagomez who has accepted pt for admission Please note that this Emergency Department Report was dictated using [employer] electronic technology software, occasionally this can lead to erroneous entry secondary to interpretation by the dictation equipment EKG Diagnostic Results EP Interpretation: Yes Rate: normal Rhythm: NSR with PACs ST Segments: No acute changes ASA given to patient: No Rhythm Strip EP Interpretation: Yes Rate: 79 Rhythm: NSR, no PVCs, no ectopy Chest X-ray CXR: Ordered: Yes 1 view Indication: Chest pain EP interpretation: Yes Interpretation: No consolidation, no effusion, no PTX, no acute cardiopulmonary disease Impression: No acute disease Electronically signed by Serenity Wilson MD Laboratory Tests Test 03/28/17 09:20 White Blood Count 7.4 K/UL (4.8-10.8) Red Blood Count 3.86 M/UL (4.70-6.10) L Hemoglobin 12.6 G/DL (14.2-18.0) L Hematocrit 38.3 % (42.0-52.0) L Mean Corpuscular Volume 99 FL (80-99) Mean Corpuscular Hemoglobin 32.6 PG (27.0-31.0) H Mean Corpuscular Hemoglobin Concent 32.8 G/DL (32.0-36.0) Red Cell Distribution Width 15.1 % (11.6-14.8) H Platelet Count 69 K/UL (150-450) L Mean Platelet Volume 8.4 FL (6.5-10.1) Neutrophils (%) (Auto) % (45.0-75.0) Lymphocytes (%) (Auto) % (20.0-45.0) Monocytes (%) (Auto) % (1.0-10.0) Eosinophils (%) (Auto) % (0.0-3.0) Basophils (%) (Auto) % (0.0-2.0) Differential Total Cells Counted 100 Neutrophils % (Manual) 70 % (45-75) Lymphocytes % (Manual) 15 % (20-45) L Monocytes % (Manual) 15 % (1-10) H Eosinophils % (Manual) 0 % (0-3) Basophils % (Manual) 0 % (0-2) Band Neutrophils 0 % (0-8) Platelet Estimate Decreased L Platelet Morphology Normal Anisocytosis 1+ Ovalocytes Occasional Prothrombin Time 11.0 SEC (9.30-11.50) Prothrombin Time INR 1.1 (0.9-1.1) PTT 24 SEC (23-33) Sodium Level 141 MMOL/L (136-145) Potassium Level 4.0 MMOL/L (3.5-5.1) Chloride Level 110 MMOL/L (98-107) H Carbon Dioxide Level 18 MMOL/L (21-32) L Anion Gap 13 mmol/L (5-15) Blood Urea Nitrogen 25 mg/dL (7-18) H Creatinine 1.5 MG/DL (0.55-1.30) H Estimate Glomerular Filtration Rate mL/min (>60) Glucose Level 88 MG/DL (74-106) Lactic Acid Level 1.10 mmol/L (0.66-2.22) Calcium Level 9.0 MG/DL (8.5-10.1) Total Bilirubin 1.2 MG/DL (0.2-1.0) H Direct Bilirubin 0.1 MG/DL (0.0-0.3) Aspartate Amino Transferase (AST) 18 U/L (15-37) Alanine Aminotransferase (ALT) 23 U/L (12-78) Alkaline Phosphatase 99 U/L (46-116) Total Creatine Kinase 40 U/L (26-308) Creatine Kinase MB 1.1 NG/ML (0.0-3.6) Creatine Kinase MB Relative Index 2.7 Troponin I 0.033 ng/mL (0.000-0.056) Total Protein 7.2 G/DL (6.4-8.2) Albumin 3.7 G/DL (3.4-5.0) Globulin 3.5 g/dL Albumin/Globulin Ratio 1.1 (1.0-2.7) CT/MRI/US Diagnostic Results CT/MRI/US Diagnostic Results : Imaging Test Ordered: CT abdo pelvis Impression Findings: The appendix is not visualized. Surgical clips and ravindra in the region of the appendix suggests prior appendectomy. The colon is diffusely upper limits of normal in caliber to the level of the mid descending colon, nondistended more distally. No evidence of diverticulosis or diverticulitis. No small bowel distention. Contrast has traversed the entirety of the small bowel and most of the colon. No small bowel distention or small bowel wall thickening, although proximal small bowel loops are gas-filled and upper limits of normal in caliber. The distal esophagus demonstrates a small sliding-type hiatal hernia. The gastric mucosal surgical clips demonstrated previously are again demonstrated. The stomach is otherwise unremarkable. The duodenum is unremarkable. No free or loculated intraperitoneal air or fluid is evident. The liver, gallbladder, bile ducts, pancreas, spleen, adrenals, kidneys are unremarkable. The prostate is enlarged. There is a TURP defect. No pelvic mass or adenopathy. The bladder is unremarkable. The included lung bases are clear except for a calcified granuloma at the right lung base, also previously described. Heart is enlarged. The bones are unremarkable except for mild lumbosacral degenerative proliferative spondylosis and some right hip degenerative change. Impression: No definite acute process. Small sliding-type hiatal hernia, also previously described Cardiomegaly Other findings as noted, including 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, right hip degenerative change, degenerative spondylosis, prostatomegaly with prior TURP, inferior vena cava filter (report by Radiologist) Serenity Wilson M.D. Mar 28, 2017 08:56
[2017-03-28 10:00] VITALS: BP 95/66
[2017-03-28 10:08] LABS: HEMATOCRIT 38.3 % (42.0-52.0); HEMOGLOBIN 12.6 G/DL (14.2-18.0); MEAN CORPUSCULAR VOLUME 99 FL (80-99); PLATELET COUNT 69 K/UL (150-450); RED BLOOD COUNT 3.86 M/UL (4.70-6.10); RED CELL DISTRIBUTION WIDTH 15.1 % (11.6-14.8); WHITE BLOOD COUNT 7.4 K/UL (4.8-10.8)
[2017-03-28 10:14] LABS: INR 1.1 (0.9-1.1)
--- NOTE | 2017-03-28 10:29 | Diagnostic Imaging Report ---
Indication: Chest pain Technique: One view of the chest Comparison: 06/19/2016 Findings: The lungs and pleural space are clear. Heart size is normal. The aorta is ectatic. Upper mediastinum is unremarkable. There are median sternotomy sutures. Findings are unchanged Impression: No acute process
[2017-03-28 10:32] LABS: ALANINE AMINOTRANSFERASE 23 U/L (12-78); ALBUMIN 3.7 G/DL (3.4-5.0); ALBUMIN/GLOBULIN RATIO 1.1 (1.0-2.7); ALKALINE PHOSPHATASE 99 U/L (46-116); ANION GAP 13 mmol/L (5-15); ASPARTATE AMINO TRANSFERASE 18 U/L (15-37); BILIRUBIN,TOTAL 1.2 MG/DL (0.2-1.0); BLOOD UREA NITROGEN 25 mg/dL (7-18); CARBON DIOXIDE 18 MMOL/L (21-32); CHLORIDE 110 MMOL/L (98-107); CKMB 1.1 NG/ML (0.0-3.6); CREATINE KINASE 40 U/L (26-308); CREATININE 1.5 MG/DL (0.55-1.30); SODIUM 141 MMOL/L (136-145)
[2017-03-28 10:37] LABS: BILIRUBIN,DIRECT 0.1 MG/DL (0.0-0.3)
[2017-03-28 12:32] VITALS: BP 164/51
--- NOTE | 2017-03-28 12:40 | Diagnostic Imaging Report ---
Clinical Indication: 76-year-old male with leukemia, abdominal pain 3 days, diarrhea, left lower quadrant, burning sharp in nature, intermittent, nausea Technique: Patient given oral contrast. IV administration nonionic contrast. Venous phase spiral acquisition obtained through the abdomen and pelvis. Multiplanar reconstructions were generated. Total dose length product 818 mGycm. CTDIvol(s) 15 mGy. Dose reduction achieved using automated exposure control Comparison: 06/19/2016 Findings: The appendix is not visualized. Surgical clips and ravindra in the region of the appendix suggests prior appendectomy. The colon is diffusely upper limits of normal in caliber to the level of the mid descending colon, nondistended more distally. No evidence of diverticulosis or diverticulitis. No small bowel distention. Contrast has traversed the entirety of the small bowel and most of the colon. No small bowel distention or small bowel wall thickening, although proximal small bowel loops are gas-filled and upper limits of normal in caliber. The distal esophagus demonstrates a small sliding-type hiatal hernia. The gastric mucosal surgical clips demonstrated previously are again demonstrated. The stomach is otherwise unremarkable. The duodenum is unremarkable. No free or loculated intraperitoneal air or fluid is evident. The liver, gallbladder, bile ducts, pancreas, spleen, adrenals, kidneys are unremarkable. The prostate is enlarged. There is a TURP defect. No pelvic mass or adenopathy. The bladder is unremarkable. The included lung bases are clear except for a calcified granuloma at the right lung base, also previously described. Heart is enlarged. The bones are unremarkable except for mild lumbosacral degenerative proliferative spondylosis and some right hip degenerative change. Impression: No definite acute process. Small sliding-type hiatal hernia, also previously described Cardiomegaly Other findings as noted, including 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, right hip degenerative change, degenerative spondylosis, prostatomegaly with prior TURP, inferior vena cava filter The CT scanner at [facility] is accredited by the [employer] and the scans are performed using protocols designed to limit radiation exposure to as low as reasonably achievable to attain images of sufficient resolution adequate for diagnostic evaluation.
[2017-03-28 12:48] VITALS: BP 150/68
[2017-03-28] MEDS ORDERED: Nitroglycerin Subl 0.4mg tab SL PRN (13:15)
[2017-03-28] MEDS ORDERED: Metoclopramide 10mg/2ml Inj IVP PRN (13:15)
[2017-03-28] MEDS ORDERED: Miralax 17gm pkt ORAL PRN (13:15)
[2017-03-28] MEDS ORDERED: LORazepam Inj 2mg/ml 1ml IV PRN (13:15)
[2017-03-28] MEDS ORDERED: Mylanta II UD 30ml ORAL PRN (13:15)
[2017-03-28] MEDS ORDERED: Lyrica 75mg cap ORAL PRN (13:15)
[2017-03-28] MEDS: D5 1/2NS 1,000 ML IV SCH (14:00)
[2017-03-28] MEDS: Morphine Sulfate 2mg/ml Inj IVP PRN ×2 (14:31→22:22)
--- NOTE | 2017-03-28 16:44 | GI Initial Consult Note ---
Domenica Chanel N.P. 03/28/17 1644: History of Present Illness General Date patient seen: Mar 28, 2017 Time patient seen: 16:29 Reason for Hospitalization: Diarrhea Referring physician: JASON REYES Reason for Consultation: ABDOMINAL PAIN / DIARRHEA Present Illness HPI 76-year-old male with leukemia, on chemotherapy for the last 3 years, CAD status post CABG, p/w abdominal pain x 3 days and diarrhea. Patient states pain started gradually, localized to left lower quadrant, non radiating, burning/sharp in nature, intermittent. No relieving or exacerbating factors. Severity is 5/10. Patient reports nausea no vomiting, more than 10 episodes of watery nonbloody diarrhea per day Denies fever or chills. No recent travel no sick contacts. No recent antibiotic use Denies nvd. GI consulted for abdominal pain and diarrhea. HPI as noted above. Pt seen on floor, awake A&Ox4 NAD with no active s/sx of N/V. Patient receives chemotherapy q for the last 3 years. Denies any hematochezia or melena at this time. 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 He presents today mild anemia. CT AP unremarkable. 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, colon - biopsied VIOLA FOSTER - Jan 08, 2016 09:31 Home Meds Active Scripts Diphenoxylate Hcl/Atropine (LOMOTIL TABLET) 1 Each Tablet, 5 MG ORAL TID, #1 TAB Prov:Jhonny Anders 04/25/16 Acetaminophen* (ACETAMINOPHEN 325MG TABLET*) 325 Mg Tablet, 650 MG ORAL Q4H Y, # 30 TAB Prov:ELLY ELIAS 04/12/16 Tamsulosin HCl (Flomax) 0.4 Mg Cap.er.24h, 0.4 MG ORAL BID, #1 CAP Prov:Lisa Corona NP 01/28/16 Ranitidine Hcl* (ZANTAC*) 150 Mg Tablet, 150 MG ORAL BEDTIME, #1 TAB Prov:Lisa Corona NP 01/28/16 Pregabalin* (LYRICA*) 75 Mg Capsule, 75 MG ORAL BID Y for nerve pain, #1 CAP Prov:Lisa Corona BUN PANNER 01/28/16 Nortriptyline HCl (Nortriptyline HCl) 25 Mg Capsule, 25 MG ORAL QHS, #1 CAP Prov:Lisa Coronales BUN PANNER 01/28/16 Metoprolol Tartrate (Metoprolol Tartrate) 25 Mg Tablet, 25 MG ORAL Q12HR, #1 TAB Prov:Lisa Corona Jameson BUN PANNER 01/28/16 Loperamide HCl (Loperamide) 2 Mg Capsule, 2 MG ORAL Q8H Y for Diarrhea, #1 CAP Prov:Lisa Corona Jameson BUN PANNER 01/28/16 Hydrocodone Bit/Acetaminophen 10-325* (HYDROCODON-ACETAMINOPHN 10-325*) 1 Each Tablet, 1 EA ORAL Q6H Y for Severe Pain (Pain Scale 7-10), #1 TAB Prov:Poly Coronatyrell Jameson BUN PANNER 01/28/16 Ferrous Sulfate (Feosol) 325 Mg Tablet, 325 MG ORAL DAILY, #1 TAB Prov:ThomradhaLisatyrell Jameson BUN PANNER 01/28/16 Finasteride (FINASTERIDE) 5 Mg Tablet, 5 MG ORAL DAILY, #1 TAB Prov:CjLisatyrell Jameson BUN PANNER 01/28/16 Dronabinol* (MARINOL*) 2.5 Mg Capsule, 5 MG ORAL BID, #1 CAP Prov:Lisa Corona Jameson BUN PANNER 01/28/16 Clonidine HCl (Clonidine HCl) 0.1 Mg Tablet, 0.1 MG ORAL Q8H Y for sbp>170, #1 TAB Prov:ThomradhaLisatodd Jameson BUN PANNER 01/28/16 Amlodipine Besylate (Norvasc) 5 Mg Tablet, 5 MG ORAL DAILY, #1 TAB Prov:LewkarsonLisatyrell Jameson BUN PANNER 01/28/16 Atorvastatin Calcium* (LIPITOR*) 20 Mg Tablet, 20 MG ORAL BEDTIME, #1 TAB Prov:ThomLisa garcia BUN PANNER 01/28/16 Aspirin Ec* (ASPIRIN EC*) 81 Mg Tablet.dr, 81 MG ORAL DAILY, #1 TAB Prov:ThomradhaLisatodd Jameson BUN PANNER 01/28/16 Allopurinol* (ALLOPURINOL*) 100 Mg Tablet, 300 MG ORAL DAILY, #1 TAB Prov:Lisa Corona Jameson BUN PANNER 01/28/16 Reported Medications Thalidomide (THALOMID) 50 Mg Capsule, 50 MG PO DAILY, CAP 06/19/16 Lansoprazole* (LANSOPRAZOLE*) 15 Mg Capsule.dr, 15 MG ORAL DAILY, CAP 06/19/16 Ondansetron* (ZOFRAN*) 4 Mg Tablet, 4 MG ORAL Q6H Y for Nausea & Vomiting, TAB 06/19/16 Acyclovir* (ACYCLOVIR*) 400 Mg Tablet, 400 MG ORAL BID, TAB 06/19/16 Clonidine Hcl* (CATAPRES*) 0.1 Mg Tablet, 0.1 MG ORAL EVERY 6 HOURS, TAB 07/02/15 Med list reviewed/reconciled: Yes Allergies: Coded Allergies: No Known Allergies (Unverified , 04/23/13) Patient History History Provided By: Patient, Medical Record PMH Narrative Past Medical History: see triage record Past Surgical History: none Pertinent Family History: none Reviewed Nursing Documentation: PMH: Agreed, PSxH: Agreed Nursing Documentation-PMH Hx Cardiac Problems: Yes - DC Hx Hypertension: Yes Hx Pacemaker: No - C-DIFF,MYELOMA,CA Hx Asthma: No Hx COPD: No Hx Diabetes: No Hx Cancer: Yes - multiple myeloma Hx Gastrointestinal Problems: Yes - appendectomy 2016, Chronic abdominal pain, Hx Dialysis: No Hx Neurological Problems: No Hx Cerebrovascular Accident: No Hx Seizures: No Hx Dizziness: No Hx Syncope: No Hx Headaches: No Social History: Denies: smoking, alcohol use, drug use, other Review of Systems All Other Systems: negative except mentioned in HPI Physical Exam Vital Signs Date Time Temp Pulse Resp B/P (MAP) Pulse Ox O2 Delivery O2 Flow Rate FiO2 03/28/17 08:50 97.0 86 16 136/61 99 Room Air Sp02 EP Interpretation: reviewed, normal Labs Laboratory Tests Test 03/28/17 09:20 White Blood Count 7.4 K/UL (4.8-10.8) Red Blood Count 3.86 M/UL (4.70-6.10) L Hemoglobin 12.6 G/DL (14.2-18.0) L Hematocrit 38.3 % (42.0-52.0) L Mean Corpuscular Volume 99 FL (80-99) Mean Corpuscular Hemoglobin 32.6 PG (27.0-31.0) H Mean Corpuscular Hemoglobin Concent 32.8 G/DL (32.0-36.0) Red Cell Distribution Width 15.1 % (11.6-14.8) H Platelet Count 69 K/UL (150-450) L Mean Platelet Volume 8.4 FL (6.5-10.1) Neutrophils (%) (Auto) % (45.0-75.0) Lymphocytes (%) (Auto) % (20.0-45.0) Monocytes (%) (Auto) % (1.0-10.0) Eosinophils (%) (Auto) % (0.0-3.0) Basophils (%) (Auto) % (0.0-2.0) Differential Total Cells Counted 100 Neutrophils % (Manual) 70 % (45-75) Lymphocytes % (Manual) 15 % (20-45) L Monocytes % (Manual) 15 % (1-10) H Eosinophils % (Manual) 0 % (0-3) Basophils % (Manual) 0 % (0-2) Band Neutrophils 0 % (0-8) Platelet Estimate Decreased L Platelet Morphology Normal Anisocytosis 1+ Ovalocytes Occasional Prothrombin Time 11.0 SEC (9.30-11.50) Prothromb Time International Ratio 1.1 (0.9-1.1) Activated Partial Thromboplast Time 24 SEC (23-33) Sodium Level 141 MMOL/L (136-145) Potassium Level 4.0 MMOL/L (3.5-5.1) Chloride Level 110 MMOL/L (98-107) H Carbon Dioxide Level 18 MMOL/L (21-32) L Anion Gap 13 mmol/L (5-15) Blood Urea Nitrogen 25 mg/dL (7-18) H Creatinine 1.5 MG/DL (0.55-1.30) H Estimat Glomerular Filtration Rate mL/min (>60) Glucose Level 88 MG/DL (74-106) Lactic Acid Level 1.10 mmol/L (0.66-2.22) Calcium Level 9.0 MG/DL (8.5-10.1) Total Bilirubin 1.2 MG/DL (0.2-1.0) H Direct Bilirubin 0.1 MG/DL (0.0-0.3) Aspartate Amino Transf (AST/SGOT) 18 U/L (15-37) Alanine Aminotransferase (ALT/SGPT) 23 U/L (12-78) Alkaline Phosphatase 99 U/L (46-116) Total Creatine Kinase 40 U/L (26-308) Creatine Kinase MB 1.1 NG/ML (0.0-3.6) Creatine Kinase MB Relative Index 2.7 Troponin I 0.033 ng/mL (0.000-0.056) Total Protein 7.2 G/DL (6.4-8.2) Albumin 3.7 G/DL (3.4-5.0) Globulin 3.5 g/dL Albumin/Globulin Ratio 1.1 (1.0-2.7) General Appearance: well appearing, no apparent distress, alert Head: normocephalic EENT: PERRL/EOMI, normal ENT inspection Neck: supple Respiratory: normal breath sounds, no respiratory distress Cardiovascular: normal rate Gastrointestinal: normal inspection, non tender, soft, normal bowel sounds, non -distended Rectal: deferred Genitourinary: deferred Musculoskeletal: normal inspection, back normal Neurologic: normal inspection, alert, oriented x3, responsive Psychiatric: normal inspection, judgement/insight normal, memory normal Skin: normal inspection, normal color, no rash, warm/dry, palpation normal, well hydrated Lymphatic: normal inspection, no adenopathy Current Medications Current Medications Medications (Trade) Dose Ordered Sig/Antionette Route PRN Reason Start Time Stop Time Status Last Admin Dose Admin Acetaminophen (Tylenol) 650 mg Q4H PRN ORAL fever 03/28/17 13:15 04/27/17 13:14 Al Hydroxide/Mg Hydroxide (Mylanta II) 30 ml Q6H PRN ORAL dyspepsia 03/28/17 13:15 04/27/17 13:14 Allopurinol (Allopurinol) 300 mg DAILY ORAL 03/29/17 09:00 04/28/17 08:59 Amlodipine Besylate (Norvasc) 5 mg DAILY ORAL 03/29/17 09:00 04/28/17 08:59 Aspirin (Ecotrin) 81 mg DAILY ORAL 03/29/17 09:00 04/28/17 08:59 Atorvastatin Calcium (Lipitor) 20 mg BEDTIME ORAL 03/28/17 21:00 04/27/17 20:59 Clonidine HCl (Catapres) 0.1 mg Q8H PRN ORAL sbp>170 10/23/17 13:15 04/27/17 13:14 Dextrose (Dextrose 50%) STAT PRN IV Hypoglycemia 03/28/17 13:15 04/27/17 13:14 Dextrose/Sodium Chloride 1,000 ml @ 75 mls/hr [id number] IV 03/28/17 14:00 04/27/17 13:59 Diphenhydramine HCl (Benadryl) 25 mg Q6H PRN ORAL Itching/Pruritis 03/28/17 13:15 04/27/17 13:14 Dronabinol (Marinol) 5 mg BID ORAL 03/28/17 18:00 04/27/17 17:59 Finasteride (Proscar) 5 mg DAILY ORAL 03/29/17 09:00 04/28/17 08:59 Lorazepam (Ativan 2mg/ml 1ml) 1 mg Q4H PRN IV agitation 03/28/17 13:15 04/04/17 13:14 Metoclopramide HCl (Reglan) 10 mg Q6H PRN IVP severe nausea 03/28/17 13:15 04/27/17 13:14 Metoprolol Tartrate (Lopressor) 25 mg Q12HR ORAL 03/28/17 21:00 04/27/17 20:59 Morphine Sulfate (Morphine Sulfate) 2 mg Q4H PRN IVP severe Pain (Pain Scale 7-10) 03/28/17 13:15 04/04/17 13:14 03/28/17 14:31 Nitroglycerin (Ntg) 0.4 mg Q5M X 3 DOSES PRN SL Prn Chest Pain 03/28/17 13:15 04/27/17 13:14 Nortriptyline HCl (Pamelor) 25 mg QHS ORAL 03/28/17 21:00 04/27/17 20:59 Ondansetron HCl (Zofran) 4 mg Q6H PRN IVP Nausea & Vomiting 03/28/17 13:15 04/27/17 13:14 Pantoprazole (Protonix) 40 mg DAILY IV 03/29/17 09:00 04/28/17 08:59 Polyethylene Glycol (Miralax) 17 gm HSPRN PRN ORAL Constipation 03/28/17 13:15 11/22/17 13:14 Pregabalin (Lyrica) 75 mg BIDPRN PRN ORAL nerve pain 03/28/17 13:15 04/27/17 13:14 Promethazine HCl (Phenergan) 25 mg Q8H PRN IV refractory nausea 03/28/17 13:15 04/27/17 13:14 Sodium Chloride 1,000 ml @ 150 mls/hr Q6H40M IV 03/28/17 10:15 04/27/17 10:14 03/28/17 10:34 Tamsulosin HCl (Flomax) 0.4 mg BID ORAL 03/28/17 18:00 04/27/17 17:59 Temazepam (Restoril) 15 mg HSPRN PRN ORAL Insomnia 03/28/17 13:15 04/04/17 13:14 GI: Plan Problems: (1) Chemotherapy-induced diarrhea (2) LUQ abdominal pain (3) Multiple myeloma (4) Diarrhea (5) Anemia (6) Amyloidosis Plan s/p EGD/colonoscopy 2016 >> amyloidosis CT AP reviewed >> unremarkable send for stool fat, stool culture, cdiff - lomotil prn after samples collected monitor H&H, prn transfusions low residual/fiber diet IV hydration + electrolyte replacement H2B fu labs PT/INR, B12/folate/Vit D Discussed with Dr. Watson. Thank you for this patient referral, we will follow. KATHY WATSON 03/29/17 1518: History of Present Illness General Reason for Hospitalization: Diarrhea Present Illness Home Meds Active Scripts Diphenoxylate Hcl/Atropine (LOMOTIL TABLET) 1 Each Tablet, 5 MG ORAL TID, #1 TAB Prov:Jhonny Anders 04/25/16 Acetaminophen* (ACETAMINOPHEN 325MG TABLET*) 325 Mg Tablet, 650 MG ORAL Q4H Y, # 30 TAB Prov:ELLY ELIAS 04/12/16 Tamsulosin HCl (Flomax) 0.4 Mg Cap.er.24h, 0.4 MG ORAL BID, #1 CAP Prov:Lisa Corona NP 01/28/16 Ranitidine Hcl* (ZANTAC*) 150 Mg Tablet, 150 MG ORAL BEDTIME, #1 TAB Prov:Lisa Corona BUN PANNER 01/28/16 Pregabalin* (LYRICA*) 75 Mg Capsule, 75 MG ORAL BID Y for nerve pain, #1 CAP Prov:ThomalonaPoly tyLisatyrell Jameson BUN PANNER 01/28/16 Nortriptyline HCl (Nortriptyline HCl) 25 Mg Capsule, 25 MG ORAL QHS, #1 CAP Prov:CjLisatodd Jameson BUN PANNER 01/28/16 Metoprolol Tartrate (Metoprolol Tartrate) 25 Mg Tablet, 25 MG ORAL Q12HR, #1 TAB Prov:ThomradhaLisatodd Jameson BUN PANNER 01/28/16 Loperamide HCl (Loperamide) 2 Mg Capsule, 2 MG ORAL Q8H Y for Diarrhea, #1 CAP Prov:ThomLisa garcia BUN PANNER 01/28/16 Hydrocodone Bit/Acetaminophen 10-325* (HYDROCODON-ACETAMINOPHN 10-325*) 1 Each Tablet, 1 EA ORAL Q6H Y for Severe Pain (Pain Scale 7-10), #1 TAB Prov:Lisa Corona BUN PANNER 01/28/16 Ferrous Sulfate (Feosol) 325 Mg Tablet, 325 MG ORAL DAILY, #1 TAB Prov:ThomradhaLisatodd Jameson BUN PANNER 01/28/16 Finasteride (FINASTERIDE) 5 Mg Tablet, 5 MG ORAL DAILY, #1 TAB Prov:ThomLisa garcia BUN PANNER 01/28/16 Dronabinol* (MARINOL*) 2.5 Mg Capsule, 5 MG ORAL BID, #1 CAP Prov:ThomradhaLisatodd Jameson BUN PANNER 01/28/16 Clonidine HCl (Clonidine HCl) 0.1 Mg Tablet, 0.1 MG ORAL Q8H Y for sbp>170, #1 TAB Prov:ThomLisa garcia BUN PANNER 01/28/16 Amlodipine Besylate (Norvasc) 5 Mg Tablet, 5 MG ORAL DAILY, #1 TAB Prov:Lisa Corona BUN PANNER 01/28/16 Atorvastatin Calcium* (LIPITOR*) 20 Mg Tablet, 20 MG ORAL BEDTIME, #1 TAB Prov:ThomLisa garcia BUN PANNER 01/28/16 Aspirin Ec* (ASPIRIN EC*) 81 Mg Tablet.dr, 81 MG ORAL DAILY, #1 TAB Prov:ThomLisa garcia BUN PANNER 01/28/16 Allopurinol* (ALLOPURINOL*) 100 Mg Tablet, 300 MG ORAL DAILY, #1 TAB Prov:Lisa Corona BUN PANNER 01/28/16 Reported Medications Thalidomide (THALOMID) 50 Mg Capsule, 50 MG PO DAILY, CAP 06/19/16 Lansoprazole* (LANSOPRAZOLE*) 15 Mg Capsule.dr, 15 MG ORAL DAILY, CAP 06/19/16 Ondansetron* (ZOFRAN*) 4 Mg Tablet, 4 MG ORAL Q6H Y for Nausea & Vomiting, TAB 06/19/16 Acyclovir* (ACYCLOVIR*) 400 Mg Tablet, 400 MG ORAL BID, TAB 06/19/16 Clonidine Hcl* (CATAPRES*) 0.1 Mg Tablet, 0.1 MG ORAL EVERY 6 HOURS, TAB 07/02/15 Allergies: Coded Allergies: No Known Allergies (Unverified , 04/23/13) GI: Plan Plan The patient was seen and examined at bedside and all new and available data was reviewed in the patients chart. I agree with the above findings, impression and plan. (Patient seen earlier today. Signature stamp does not reflect patient encounter time.). - MD Yanique [facility] [place] Mar 28, 2017 16:44 KATHY WATSON Mar 29, 2017 15:18
--- NOTE | 2017-03-28 16:44 | GI Initial Consult Note ---
Domenica Chanel N.P. 03/28/17 1644: History of Present Illness General Date patient seen: Mar 28, 2017 Time patient seen: 16:29 Reason for Hospitalization: Diarrhea Referring physician: JASON REYES Reason for Consultation: ABDOMINAL PAIN / DIARRHEA Present Illness HPI 76-year-old male with leukemia, on chemotherapy for the last 3 years, CAD status post CABG, p/w abdominal pain x 3 days and diarrhea. Patient states pain started gradually, localized to left lower quadrant, non radiating, burning/sharp in nature, intermittent. No relieving or exacerbating factors. Severity is 5/10. Patient reports nausea no vomiting, more than 10 episodes of watery nonbloody diarrhea per day Denies fever or chills. No recent travel no sick contacts. No recent antibiotic use Denies nvd. GI consulted for abdominal pain and diarrhea. HPI as noted above. Pt seen on floor, awake A&Ox4 NAD with no active s/sx of N/V. Patient receives chemotherapy q for the last 3 years. Denies any hematochezia or melena at this time. 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 He presents today mild anemia. CT AP unremarkable. 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, colon - biopsied VIOLA FOSTER - Jan 08, 2016 09:31 Home Meds Active Scripts Diphenoxylate Hcl/Atropine (LOMOTIL TABLET) 1 Each Tablet, 5 MG ORAL TID, #1 TAB Prov:Jhonny Anders 04/25/16 Acetaminophen* (ACETAMINOPHEN 325MG TABLET*) 325 Mg Tablet, 650 MG ORAL Q4H Y, # 30 TAB Prov:ELLY ELIAS 04/12/16 Tamsulosin HCl (Flomax) 0.4 Mg Cap.er.24h, 0.4 MG ORAL BID, #1 CAP Prov:Lisa Corona NP 01/28/16 Ranitidine Hcl* (ZANTAC*) 150 Mg Tablet, 150 MG ORAL BEDTIME, #1 TAB Prov:Lisa Corona NP 01/28/16 Pregabalin* (LYRICA*) 75 Mg Capsule, 75 MG ORAL BID Y for nerve pain, #1 CAP Prov:Lisa Corona AERODYNAMICS TEACHER 01/28/16 Nortriptyline HCl (Nortriptyline HCl) 25 Mg Capsule, 25 MG ORAL QHS, #1 CAP Prov:Lisa Coornales AERODYNAMICS TEACHER 01/28/16 Metoprolol Tartrate (Metoprolol Tartrate) 25 Mg Tablet, 25 MG ORAL Q12HR, #1 TAB Prov:Lisa Corona Jameson AERODYNAMICS TEACHER 01/28/16 Loperamide HCl (Loperamide) 2 Mg Capsule, 2 MG ORAL Q8H Y for Diarrhea, #1 CAP Prov:Lisa Corona Jameson AERODYNAMICS TEACHER 01/28/16 Hydrocodone Bit/Acetaminophen 10-325* (HYDROCODON-ACETAMINOPHN 10-325*) 1 Each Tablet, 1 EA ORAL Q6H Y for Severe Pain (Pain Scale 7-10), #1 TAB Prov:Poly Coronatyrell Jameson AERODYNAMICS TEACHER 01/28/16 Ferrous Sulfate (Feosol) 325 Mg Tablet, 325 MG ORAL DAILY, #1 TAB Prov:ThomradhaLisatyrell Jameson AERODYNAMICS TEACHER 01/28/16 Finasteride (FINASTERIDE) 5 Mg Tablet, 5 MG ORAL DAILY, #1 TAB Prov:CjLisatyrell Jameson AERODYNAMICS TEACHER 01/28/16 Dronabinol* (MARINOL*) 2.5 Mg Capsule, 5 MG ORAL BID, #1 CAP Prov:Lisa Corona Jameson AERODYNAMICS TEACHER 01/28/16 Clonidine HCl (Clonidine HCl) 0.1 Mg Tablet, 0.1 MG ORAL Q8H Y for sbp>170, #1 TAB Prov:ThomradhaLisatodd Jameson AERODYNAMICS TEACHER 01/28/16 Amlodipine Besylate (Norvasc) 5 Mg Tablet, 5 MG ORAL DAILY, #1 TAB Prov:LewkarsonLisatyrell Jameson AERODYNAMICS TEACHER 01/28/16 Atorvastatin Calcium* (LIPITOR*) 20 Mg Tablet, 20 MG ORAL BEDTIME, #1 TAB Prov:ThomLisa garcia AERODYNAMICS TEACHER 01/28/16 Aspirin Ec* (ASPIRIN EC*) 81 Mg Tablet.dr, 81 MG ORAL DAILY, #1 TAB Prov:ThomradhaLisatodd Jameson AERODYNAMICS TEACHER 01/28/16 Allopurinol* (ALLOPURINOL*) 100 Mg Tablet, 300 MG ORAL DAILY, #1 TAB Prov:Lisa Corona Jameson AERODYNAMICS TEACHER 01/28/16 Reported Medications Thalidomide (THALOMID) 50 Mg Capsule, 50 MG PO DAILY, CAP 06/19/16 Lansoprazole* (LANSOPRAZOLE*) 15 Mg Capsule.dr, 15 MG ORAL DAILY, CAP 06/19/16 Ondansetron* (ZOFRAN*) 4 Mg Tablet, 4 MG ORAL Q6H Y for Nausea & Vomiting, TAB 06/19/16 Acyclovir* (ACYCLOVIR*) 400 Mg Tablet, 400 MG ORAL BID, TAB 06/19/16 Clonidine Hcl* (CATAPRES*) 0.1 Mg Tablet, 0.1 MG ORAL EVERY 6 HOURS, TAB 07/02/15 Med list reviewed/reconciled: Yes Allergies: Coded Allergies: No Known Allergies (Unverified , 04/23/13) Patient History History Provided By: Patient, Medical Record PMH Narrative Past Medical History: see triage record Past Surgical History: none Pertinent Family History: none Reviewed Nursing Documentation: PMH: Agreed, PSxH: Agreed Nursing Documentation-PMH Hx Cardiac Problems: Yes - LA Hx Hypertension: Yes Hx Pacemaker: No - C-DIFF,MYELOMA,CA Hx Asthma: No Hx COPD: No Hx Diabetes: No Hx Cancer: Yes - multiple myeloma Hx Gastrointestinal Problems: Yes - appendectomy 2016, Chronic abdominal pain, Hx Dialysis: No Hx Neurological Problems: No Hx Cerebrovascular Accident: No Hx Seizures: No Hx Dizziness: No Hx Syncope: No Hx Headaches: No Social History: Denies: smoking, alcohol use, drug use, other Review of Systems All Other Systems: negative except mentioned in HPI Physical Exam Vital Signs Date Time Temp Pulse Resp B/P (MAP) Pulse Ox O2 Delivery O2 Flow Rate FiO2 03/28/17 08:50 97.0 86 16 136/61 99 Room Air Sp02 EP Interpretation: reviewed, normal Labs Laboratory Tests Test 03/28/17 09:20 White Blood Count 7.4 K/UL (4.8-10.8) Red Blood Count 3.86 M/UL (4.70-6.10) L Hemoglobin 12.6 G/DL (14.2-18.0) L Hematocrit 38.3 % (42.0-52.0) L Mean Corpuscular Volume 99 FL (80-99) Mean Corpuscular Hemoglobin 32.6 PG (27.0-31.0) H Mean Corpuscular Hemoglobin Concent 32.8 G/DL (32.0-36.0) Red Cell Distribution Width 15.1 % (11.6-14.8) H Platelet Count 69 K/UL (150-450) L Mean Platelet Volume 8.4 FL (6.5-10.1) Neutrophils (%) (Auto) % (45.0-75.0) Lymphocytes (%) (Auto) % (20.0-45.0) Monocytes (%) (Auto) % (1.0-10.0) Eosinophils (%) (Auto) % (0.0-3.0) Basophils (%) (Auto) % (0.0-2.0) Differential Total Cells Counted 100 Neutrophils % (Manual) 70 % (45-75) Lymphocytes % (Manual) 15 % (20-45) L Monocytes % (Manual) 15 % (1-10) H Eosinophils % (Manual) 0 % (0-3) Basophils % (Manual) 0 % (0-2) Band Neutrophils 0 % (0-8) Platelet Estimate Decreased L Platelet Morphology Normal Anisocytosis 1+ Ovalocytes Occasional Prothrombin Time 11.0 SEC (9.30-11.50) Prothromb Time International Ratio 1.1 (0.9-1.1) Activated Partial Thromboplast Time 24 SEC (23-33) Sodium Level 141 MMOL/L (136-145) Potassium Level 4.0 MMOL/L (3.5-5.1) Chloride Level 110 MMOL/L (98-107) H Carbon Dioxide Level 18 MMOL/L (21-32) L Anion Gap 13 mmol/L (5-15) Blood Urea Nitrogen 25 mg/dL (7-18) H Creatinine 1.5 MG/DL (0.55-1.30) H Estimat Glomerular Filtration Rate mL/min (>60) Glucose Level 88 MG/DL (74-106) Lactic Acid Level 1.10 mmol/L (0.66-2.22) Calcium Level 9.0 MG/DL (8.5-10.1) Total Bilirubin 1.2 MG/DL (0.2-1.0) H Direct Bilirubin 0.1 MG/DL (0.0-0.3) Aspartate Amino Transf (AST/SGOT) 18 U/L (15-37) Alanine Aminotransferase (ALT/SGPT) 23 U/L (12-78) Alkaline Phosphatase 99 U/L (46-116) Total Creatine Kinase 40 U/L (26-308) Creatine Kinase MB 1.1 NG/ML (0.0-3.6) Creatine Kinase MB Relative Index 2.7 Troponin I 0.033 ng/mL (0.000-0.056) Total Protein 7.2 G/DL (6.4-8.2) Albumin 3.7 G/DL (3.4-5.0) Globulin 3.5 g/dL Albumin/Globulin Ratio 1.1 (1.0-2.7) General Appearance: well appearing, no apparent distress, alert Head: normocephalic EENT: PERRL/EOMI, normal ENT inspection Neck: supple Respiratory: normal breath sounds, no respiratory distress Cardiovascular: normal rate Gastrointestinal: normal inspection, non tender, soft, normal bowel sounds, non -distended Rectal: deferred Genitourinary: deferred Musculoskeletal: normal inspection, back normal Neurologic: normal inspection, alert, oriented x3, responsive Psychiatric: normal inspection, judgement/insight normal, memory normal Skin: normal inspection, normal color, no rash, warm/dry, palpation normal, well hydrated Lymphatic: normal inspection, no adenopathy Current Medications Current Medications Medications (Trade) Dose Ordered Sig/Antionette Route PRN Reason Start Time Stop Time Status Last Admin Dose Admin Acetaminophen (Tylenol) 650 mg Q4H PRN ORAL fever 03/28/17 13:15 04/27/17 13:14 Al Hydroxide/Mg Hydroxide (Mylanta II) 30 ml Q6H PRN ORAL dyspepsia 03/28/17 13:15 04/27/17 13:14 Allopurinol (Allopurinol) 300 mg DAILY ORAL 03/29/17 09:00 04/28/17 08:59 Amlodipine Besylate (Norvasc) 5 mg DAILY ORAL 03/29/17 09:00 04/28/17 08:59 Aspirin (Ecotrin) 81 mg DAILY ORAL 03/29/17 09:00 04/28/17 08:59 Atorvastatin Calcium (Lipitor) 20 mg BEDTIME ORAL 03/28/17 21:00 04/27/17 20:59 Clonidine HCl (Catapres) 0.1 mg Q8H PRN ORAL sbp>170 10/23/17 13:15 04/27/17 13:14 Dextrose (Dextrose 50%) STAT PRN IV Hypoglycemia 03/28/17 13:15 04/27/17 13:14 Dextrose/Sodium Chloride 1,000 ml @ 75 mls/hr [id number] IV 03/28/17 14:00 04/27/17 13:59 Diphenhydramine HCl (Benadryl) 25 mg Q6H PRN ORAL Itching/Pruritis 03/28/17 13:15 04/27/17 13:14 Dronabinol (Marinol) 5 mg BID ORAL 03/28/17 18:00 04/27/17 17:59 Finasteride (Proscar) 5 mg DAILY ORAL 03/29/17 09:00 04/28/17 08:59 Lorazepam (Ativan 2mg/ml 1ml) 1 mg Q4H PRN IV agitation 03/28/17 13:15 04/04/17 13:14 Metoclopramide HCl (Reglan) 10 mg Q6H PRN IVP severe nausea 03/28/17 13:15 04/27/17 13:14 Metoprolol Tartrate (Lopressor) 25 mg Q12HR ORAL 03/28/17 21:00 04/27/17 20:59 Morphine Sulfate (Morphine Sulfate) 2 mg Q4H PRN IVP severe Pain (Pain Scale 7-10) 03/28/17 13:15 04/04/17 13:14 03/28/17 14:31 Nitroglycerin (Ntg) 0.4 mg Q5M X 3 DOSES PRN SL Prn Chest Pain 03/28/17 13:15 04/27/17 13:14 Nortriptyline HCl (Pamelor) 25 mg QHS ORAL 03/28/17 21:00 04/27/17 20:59 Ondansetron HCl (Zofran) 4 mg Q6H PRN IVP Nausea & Vomiting 03/28/17 13:15 04/27/17 13:14 Pantoprazole (Protonix) 40 mg DAILY IV 03/29/17 09:00 04/28/17 08:59 Polyethylene Glycol (Miralax) 17 gm HSPRN PRN ORAL Constipation 03/28/17 13:15 11/22/17 13:14 Pregabalin (Lyrica) 75 mg BIDPRN PRN ORAL nerve pain 03/28/17 13:15 04/27/17 13:14 Promethazine HCl (Phenergan) 25 mg Q8H PRN IV refractory nausea 03/28/17 13:15 04/27/17 13:14 Sodium Chloride 1,000 ml @ 150 mls/hr Q6H40M IV 03/28/17 10:15 04/27/17 10:14 03/28/17 10:34 Tamsulosin HCl (Flomax) 0.4 mg BID ORAL 03/28/17 18:00 04/27/17 17:59 Temazepam (Restoril) 15 mg HSPRN PRN ORAL Insomnia 03/28/17 13:15 04/04/17 13:14 GI: Plan Problems: (1) Chemotherapy-induced diarrhea (2) LUQ abdominal pain (3) Multiple myeloma (4) Diarrhea (5) Anemia (6) Amyloidosis Plan s/p EGD/colonoscopy 2016 >> amyloidosis CT AP reviewed >> unremarkable send for stool fat, stool culture, cdiff - lomotil prn after samples collected monitor H&H, prn transfusions low residual/fiber diet IV hydration + electrolyte replacement H2B fu labs PT/INR, B12/folate/Vit D Discussed with Dr. Watson. Thank you for this patient referral, we will follow. KATHY WATSON 03/29/17 1518: History of Present Illness General Reason for Hospitalization: Diarrhea Present Illness Home Meds Active Scripts Diphenoxylate Hcl/Atropine (LOMOTIL TABLET) 1 Each Tablet, 5 MG ORAL TID, #1 TAB Prov:Jhonny Anders 04/25/16 Acetaminophen* (ACETAMINOPHEN 325MG TABLET*) 325 Mg Tablet, 650 MG ORAL Q4H Y, # 30 TAB Prov:ELLY ELIAS 04/12/16 Tamsulosin HCl (Flomax) 0.4 Mg Cap.er.24h, 0.4 MG ORAL BID, #1 CAP Prov:Lisa Corona NP 01/28/16 Ranitidine Hcl* (ZANTAC*) 150 Mg Tablet, 150 MG ORAL BEDTIME, #1 TAB Prov:Lisa Corona AERODYNAMICS TEACHER 01/28/16 Pregabalin* (LYRICA*) 75 Mg Capsule, 75 MG ORAL BID Y for nerve pain, #1 CAP Prov:ThomalonaPoly tyLisatyrell Jameson AERODYNAMICS TEACHER 01/28/16 Nortriptyline HCl (Nortriptyline HCl) 25 Mg Capsule, 25 MG ORAL QHS, #1 CAP Prov:CjLisatodd Jameson AERODYNAMICS TEACHER 01/28/16 Metoprolol Tartrate (Metoprolol Tartrate) 25 Mg Tablet, 25 MG ORAL Q12HR, #1 TAB Prov:ThomradhaLisatodd Jameson AERODYNAMICS TEACHER 01/28/16 Loperamide HCl (Loperamide) 2 Mg Capsule, 2 MG ORAL Q8H Y for Diarrhea, #1 CAP Prov:ThomLisa garcia AERODYNAMICS TEACHER 01/28/16 Hydrocodone Bit/Acetaminophen 10-325* (HYDROCODON-ACETAMINOPHN 10-325*) 1 Each Tablet, 1 EA ORAL Q6H Y for Severe Pain (Pain Scale 7-10), #1 TAB Prov:Lisa Corona AERODYNAMICS TEACHER 01/28/16 Ferrous Sulfate (Feosol) 325 Mg Tablet, 325 MG ORAL DAILY, #1 TAB Prov:ThomradhaLisatodd Jameson AERODYNAMICS TEACHER 01/28/16 Finasteride (FINASTERIDE) 5 Mg Tablet, 5 MG ORAL DAILY, #1 TAB Prov:ThomLisa garcia AERODYNAMICS TEACHER 01/28/16 Dronabinol* (MARINOL*) 2.5 Mg Capsule, 5 MG ORAL BID, #1 CAP Prov:ThomradhaLisatodd Jameson AERODYNAMICS TEACHER 01/28/16 Clonidine HCl (Clonidine HCl) 0.1 Mg Tablet, 0.1 MG ORAL Q8H Y for sbp>170, #1 TAB Prov:ThomLisa garcia AERODYNAMICS TEACHER 01/28/16 Amlodipine Besylate (Norvasc) 5 Mg Tablet, 5 MG ORAL DAILY, #1 TAB Prov:Lisa Corona AERODYNAMICS TEACHER 01/28/16 Atorvastatin Calcium* (LIPITOR*) 20 Mg Tablet, 20 MG ORAL BEDTIME, #1 TAB Prov:ThomLisa garcia AERODYNAMICS TEACHER 01/28/16 Aspirin Ec* (ASPIRIN EC*) 81 Mg Tablet.dr, 81 MG ORAL DAILY, #1 TAB Prov:ThomLisa garcia AERODYNAMICS TEACHER 01/28/16 Allopurinol* (ALLOPURINOL*) 100 Mg Tablet, 300 MG ORAL DAILY, #1 TAB Prov:Lisa Corona AERODYNAMICS TEACHER 01/28/16 Reported Medications Thalidomide (THALOMID) 50 Mg Capsule, 50 MG PO DAILY, CAP 06/19/16 Lansoprazole* (LANSOPRAZOLE*) 15 Mg Capsule.dr, 15 MG ORAL DAILY, CAP 06/19/16 Ondansetron* (ZOFRAN*) 4 Mg Tablet, 4 MG ORAL Q6H Y for Nausea & Vomiting, TAB 06/19/16 Acyclovir* (ACYCLOVIR*) 400 Mg Tablet, 400 MG ORAL BID, TAB 06/19/16 Clonidine Hcl* (CATAPRES*) 0.1 Mg Tablet, 0.1 MG ORAL EVERY 6 HOURS, TAB 07/02/15 Allergies: Coded Allergies: No Known Allergies (Unverified , 04/23/13) GI: Plan Plan The patient was seen and examined at bedside and all new and available data was reviewed in the patients chart. I agree with the above findings, impression and plan. (Patient seen earlier today. Signature stamp does not reflect patient encounter time.). - MD Yanique SwainD[facility] [place] Mar 28, 2017 16:44 KATHY WATSON Mar 29, 2017 15:18
--- NOTE | 2017-03-28 16:44 | GI Initial Consult Note ---
Domenica Chanel N.P. 03/28/17 1644: History of Present Illness General Date patient seen: Mar 28, 2017 Time patient seen: 16:29 Reason for Hospitalization: Diarrhea Referring physician: JASON REYES Reason for Consultation: ABDOMINAL PAIN / DIARRHEA Present Illness HPI 76-year-old male with leukemia, on chemotherapy for the last 3 years, CAD status post CABG, p/w abdominal pain x 3 days and diarrhea. Patient states pain started gradually, localized to left lower quadrant, non radiating, burning/sharp in nature, intermittent. No relieving or exacerbating factors. Severity is 5/10. Patient reports nausea no vomiting, more than 10 episodes of watery nonbloody diarrhea per day Denies fever or chills. No recent travel no sick contacts. No recent antibiotic use Denies nvd. GI consulted for abdominal pain and diarrhea. HPI as noted above. Pt seen on floor, awake A&Ox4 NAD with no active s/sx of N/V. Patient receives chemotherapy q for the last 3 years. Denies any hematochezia or melena at this time. 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 He presents today mild anemia. CT AP unremarkable. 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, colon - biopsied VIOLA FOSTER - Jan 08, 2016 09:31 Home Meds Active Scripts Diphenoxylate Hcl/Atropine (LOMOTIL TABLET) 1 Each Tablet, 5 MG ORAL TID, #1 TAB Prov:Jhonny Anders 04/25/16 Acetaminophen* (ACETAMINOPHEN 325MG TABLET*) 325 Mg Tablet, 650 MG ORAL Q4H Y, # 30 TAB Prov:ELLY ELIAS 04/12/16 Tamsulosin HCl (Flomax) 0.4 Mg Cap.er.24h, 0.4 MG ORAL BID, #1 CAP Prov:Lisa Corona NP 01/28/16 Ranitidine Hcl* (ZANTAC*) 150 Mg Tablet, 150 MG ORAL BEDTIME, #1 TAB Prov:Lisa Corona NP 01/28/16 Pregabalin* (LYRICA*) 75 Mg Capsule, 75 MG ORAL BID Y for nerve pain, #1 CAP Prov:Lisa Corona [employer] 01/28/16 Nortriptyline HCl (Nortriptyline HCl) 25 Mg Capsule, 25 MG ORAL QHS, #1 CAP Prov:Lisa Coronales [employer] 01/28/16 Metoprolol Tartrate (Metoprolol Tartrate) 25 Mg Tablet, 25 MG ORAL Q12HR, #1 TAB Prov:Lisa Corona Jameson [employer] 01/28/16 Loperamide HCl (Loperamide) 2 Mg Capsule, 2 MG ORAL Q8H Y for Diarrhea, #1 CAP Prov:Lisa Corona Jameson [employer] 01/28/16 Hydrocodone Bit/Acetaminophen 10-325* (HYDROCODON-ACETAMINOPHN 10-325*) 1 Each Tablet, 1 EA ORAL Q6H Y for Severe Pain (Pain Scale 7-10), #1 TAB Prov:Poly Coronatyrell Jameson [employer] 01/28/16 Ferrous Sulfate (Feosol) 325 Mg Tablet, 325 MG ORAL DAILY, #1 TAB Prov:ThomradhaLisatyrell Jameson [employer] 01/28/16 Finasteride (FINASTERIDE) 5 Mg Tablet, 5 MG ORAL DAILY, #1 TAB Prov:CjLisatyrell Jameson [employer] 01/28/16 Dronabinol* (MARINOL*) 2.5 Mg Capsule, 5 MG ORAL BID, #1 CAP Prov:Lisa Corona Jameson [employer] 01/28/16 Clonidine HCl (Clonidine HCl) 0.1 Mg Tablet, 0.1 MG ORAL Q8H Y for sbp>170, #1 TAB Prov:ThomradhaLisatodd Jameson [employer] 01/28/16 Amlodipine Besylate (Norvasc) 5 Mg Tablet, 5 MG ORAL DAILY, #1 TAB Prov:LewkarsonLisatyrell Jameson [employer] 01/28/16 Atorvastatin Calcium* (LIPITOR*) 20 Mg Tablet, 20 MG ORAL BEDTIME, #1 TAB Prov:ThomLisa garcia [employer] 01/28/16 Aspirin Ec* (ASPIRIN EC*) 81 Mg Tablet.dr, 81 MG ORAL DAILY, #1 TAB Prov:ThomradhaLisatodd Jameson [employer] 01/28/16 Allopurinol* (ALLOPURINOL*) 100 Mg Tablet, 300 MG ORAL DAILY, #1 TAB Prov:Lisa Corona Jameson [employer] 01/28/16 Reported Medications Thalidomide (THALOMID) 50 Mg Capsule, 50 MG PO DAILY, CAP 06/19/16 Lansoprazole* (LANSOPRAZOLE*) 15 Mg Capsule.dr, 15 MG ORAL DAILY, CAP 06/19/16 Ondansetron* (ZOFRAN*) 4 Mg Tablet, 4 MG ORAL Q6H Y for Nausea & Vomiting, TAB 06/19/16 Acyclovir* (ACYCLOVIR*) 400 Mg Tablet, 400 MG ORAL BID, TAB 06/19/16 Clonidine Hcl* (CATAPRES*) 0.1 Mg Tablet, 0.1 MG ORAL EVERY 6 HOURS, TAB 07/02/15 Med list reviewed/reconciled: Yes Allergies: Coded Allergies: No Known Allergies (Unverified , 04/23/13) Patient History History Provided By: Patient, Medical Record PMH Narrative Past Medical History: see triage record Past Surgical History: none Pertinent Family History: none Reviewed Nursing Documentation: PMH: Agreed, PSxH: Agreed Nursing Documentation-PMH Hx Cardiac Problems: Yes - [place] Hx Hypertension: Yes Hx Pacemaker: No - C-DIFF,MYELOMA,CA Hx Asthma: No Hx COPD: No Hx Diabetes: No Hx Cancer: Yes - multiple myeloma Hx Gastrointestinal Problems: Yes - appendectomy 2016, Chronic abdominal pain, Hx Dialysis: No Hx Neurological Problems: No Hx Cerebrovascular Accident: No Hx Seizures: No Hx Dizziness: No Hx Syncope: No Hx Headaches: No Social History: Denies: smoking, alcohol use, drug use, other Review of Systems All Other Systems: negative except mentioned in HPI Physical Exam Vital Signs Date Time Temp Pulse Resp B/P (MAP) Pulse Ox O2 Delivery O2 Flow Rate FiO2 03/28/17 08:50 97.0 86 16 136/61 99 Room Air Sp02 EP Interpretation: reviewed, normal Labs Laboratory Tests Test 03/28/17 09:20 White Blood Count 7.4 K/UL (4.8-10.8) Red Blood Count 3.86 M/UL (4.70-6.10) L Hemoglobin 12.6 G/DL (14.2-18.0) L Hematocrit 38.3 % (42.0-52.0) L Mean Corpuscular Volume 99 FL (80-99) Mean Corpuscular Hemoglobin 32.6 PG (27.0-31.0) H Mean Corpuscular Hemoglobin Concent 32.8 G/DL (32.0-36.0) Red Cell Distribution Width 15.1 % (11.6-14.8) H Platelet Count 69 K/UL (150-450) L Mean Platelet Volume 8.4 FL (6.5-10.1) Neutrophils (%) (Auto) % (45.0-75.0) Lymphocytes (%) (Auto) % (20.0-45.0) Monocytes (%) (Auto) % (1.0-10.0) Eosinophils (%) (Auto) % (0.0-3.0) Basophils (%) (Auto) % (0.0-2.0) Differential Total Cells Counted 100 Neutrophils % (Manual) 70 % (45-75) Lymphocytes % (Manual) 15 % (20-45) L Monocytes % (Manual) 15 % (1-10) H Eosinophils % (Manual) 0 % (0-3) Basophils % (Manual) 0 % (0-2) Band Neutrophils 0 % (0-8) Platelet Estimate Decreased L Platelet Morphology Normal Anisocytosis 1+ Ovalocytes Occasional Prothrombin Time 11.0 SEC (9.30-11.50) Prothromb Time International Ratio 1.1 (0.9-1.1) Activated Partial Thromboplast Time 24 SEC (23-33) Sodium Level 141 MMOL/L (136-145) Potassium Level 4.0 MMOL/L (3.5-5.1) Chloride Level 110 MMOL/L (98-107) H Carbon Dioxide Level 18 MMOL/L (21-32) L Anion Gap 13 mmol/L (5-15) Blood Urea Nitrogen 25 mg/dL (7-18) H Creatinine 1.5 MG/DL (0.55-1.30) H Estimat Glomerular Filtration Rate mL/min (>60) Glucose Level 88 MG/DL (74-106) Lactic Acid Level 1.10 mmol/L (0.66-2.22) Calcium Level 9.0 MG/DL (8.5-10.1) Total Bilirubin 1.2 MG/DL (0.2-1.0) H Direct Bilirubin 0.1 MG/DL (0.0-0.3) Aspartate Amino Transf (AST/SGOT) 18 U/L (15-37) Alanine Aminotransferase (ALT/SGPT) 23 U/L (12-78) Alkaline Phosphatase 99 U/L (46-116) Total Creatine Kinase 40 U/L (26-308) Creatine Kinase MB 1.1 NG/ML (0.0-3.6) Creatine Kinase MB Relative Index 2.7 Troponin I 0.033 ng/mL (0.000-0.056) Total Protein 7.2 G/DL (6.4-8.2) Albumin 3.7 G/DL (3.4-5.0) Globulin 3.5 g/dL Albumin/Globulin Ratio 1.1 (1.0-2.7) General Appearance: well appearing, no apparent distress, alert Head: normocephalic EENT: PERRL/EOMI, normal ENT inspection Neck: supple Respiratory: normal breath sounds, no respiratory distress Cardiovascular: normal rate Gastrointestinal: normal inspection, non tender, soft, normal bowel sounds, non -distended Rectal: deferred Genitourinary: deferred Musculoskeletal: normal inspection, back normal Neurologic: normal inspection, alert, oriented x3, responsive Psychiatric: normal inspection, judgement/insight normal, memory normal Skin: normal inspection, normal color, no rash, warm/dry, palpation normal, well hydrated Lymphatic: normal inspection, no adenopathy Current Medications Current Medications Medications (Trade) Dose Ordered Sig/Antionette Route PRN Reason Start Time Stop Time Status Last Admin Dose Admin Acetaminophen (Tylenol) 650 mg Q4H PRN ORAL fever 03/28/17 13:15 04/27/17 13:14 Al Hydroxide/Mg Hydroxide (Mylanta II) 30 ml Q6H PRN ORAL dyspepsia 03/28/17 13:15 04/27/17 13:14 Allopurinol (Allopurinol) 300 mg DAILY ORAL 03/29/17 09:00 04/28/17 08:59 Amlodipine Besylate (Norvasc) 5 mg DAILY ORAL 03/29/17 09:00 04/28/17 08:59 Aspirin (Ecotrin) 81 mg DAILY ORAL 03/29/17 09:00 04/28/17 08:59 Atorvastatin Calcium (Lipitor) 20 mg BEDTIME ORAL 03/28/17 21:00 04/27/17 20:59 Clonidine HCl (Catapres) 0.1 mg Q8H PRN ORAL sbp>170 10/23/17 13:15 04/27/17 13:14 Dextrose (Dextrose 50%) STAT PRN IV Hypoglycemia 03/28/17 13:15 04/27/17 13:14 Dextrose/Sodium Chloride 1,000 ml @ 75 mls/hr [id number] IV 03/28/17 14:00 04/27/17 13:59 Diphenhydramine HCl (Benadryl) 25 mg Q6H PRN ORAL Itching/Pruritis 03/28/17 13:15 04/27/17 13:14 Dronabinol (Marinol) 5 mg BID ORAL 03/28/17 18:00 04/27/17 17:59 Finasteride (Proscar) 5 mg DAILY ORAL 03/29/17 09:00 04/28/17 08:59 Lorazepam (Ativan 2mg/ml 1ml) 1 mg Q4H PRN IV agitation 03/28/17 13:15 04/04/17 13:14 Metoclopramide HCl (Reglan) 10 mg Q6H PRN IVP severe nausea 03/28/17 13:15 04/27/17 13:14 Metoprolol Tartrate (Lopressor) 25 mg Q12HR ORAL 03/28/17 21:00 04/27/17 20:59 Morphine Sulfate (Morphine Sulfate) 2 mg Q4H PRN IVP severe Pain (Pain Scale 7-10) 03/28/17 13:15 04/04/17 13:14 03/28/17 14:31 Nitroglycerin (Ntg) 0.4 mg Q5M X 3 DOSES PRN SL Prn Chest Pain 03/28/17 13:15 04/27/17 13:14 Nortriptyline HCl (Pamelor) 25 mg QHS ORAL 03/28/17 21:00 04/27/17 20:59 Ondansetron HCl (Zofran) 4 mg Q6H PRN IVP Nausea & Vomiting 03/28/17 13:15 04/27/17 13:14 Pantoprazole (Protonix) 40 mg DAILY IV 03/29/17 09:00 04/28/17 08:59 Polyethylene Glycol (Miralax) 17 gm HSPRN PRN ORAL Constipation 03/28/17 13:15 11/22/17 13:14 Pregabalin (Lyrica) 75 mg BIDPRN PRN ORAL nerve pain 03/28/17 13:15 04/27/17 13:14 Promethazine HCl (Phenergan) 25 mg Q8H PRN IV refractory nausea 03/28/17 13:15 04/27/17 13:14 Sodium Chloride 1,000 ml @ 150 mls/hr Q6H40M IV 03/28/17 10:15 04/27/17 10:14 03/28/17 10:34 Tamsulosin HCl (Flomax) 0.4 mg BID ORAL 03/28/17 18:00 04/27/17 17:59 Temazepam (Restoril) 15 mg HSPRN PRN ORAL Insomnia 03/28/17 13:15 04/04/17 13:14 GI: Plan Problems: (1) Chemotherapy-induced diarrhea (2) LUQ abdominal pain (3) Multiple myeloma (4) Diarrhea (5) Anemia (6) Amyloidosis Plan s/p EGD/colonoscopy 2016 >> amyloidosis CT AP reviewed >> unremarkable send for stool fat, stool culture, cdiff - lomotil prn after samples collected monitor H&H, prn transfusions low residual/fiber diet IV hydration + electrolyte replacement H2B fu labs PT/INR, B12/folate/Vit D Discussed with Dr. Watson. Thank you for this patient referral, we will follow. KATHY WATSON 03/29/17 1518: History of Present Illness General Reason for Hospitalization: Diarrhea Present Illness Home Meds Active Scripts Diphenoxylate Hcl/Atropine (LOMOTIL TABLET) 1 Each Tablet, 5 MG ORAL TID, #1 TAB Prov:Jhonny Anders 04/25/16 Acetaminophen* (ACETAMINOPHEN 325MG TABLET*) 325 Mg Tablet, 650 MG ORAL Q4H Y, # 30 TAB Prov:ELLY ELIAS 04/12/16 Tamsulosin HCl (Flomax) 0.4 Mg Cap.er.24h, 0.4 MG ORAL BID, #1 CAP Prov:Lisa Corona NP 01/28/16 Ranitidine Hcl* (ZANTAC*) 150 Mg Tablet, 150 MG ORAL BEDTIME, #1 TAB Prov:Lisa Corona [employer] 01/28/16 Pregabalin* (LYRICA*) 75 Mg Capsule, 75 MG ORAL BID Y for nerve pain, #1 CAP Prov:ThomalonaPoly tyLisatyrell Jameson [employer] 01/28/16 Nortriptyline HCl (Nortriptyline HCl) 25 Mg Capsule, 25 MG ORAL QHS, #1 CAP Prov:CjLisatodd Jameson [employer] 01/28/16 Metoprolol Tartrate (Metoprolol Tartrate) 25 Mg Tablet, 25 MG ORAL Q12HR, #1 TAB Prov:ThomradhaLisatodd Jameson [employer] 01/28/16 Loperamide HCl (Loperamide) 2 Mg Capsule, 2 MG ORAL Q8H Y for Diarrhea, #1 CAP Prov:ThomLisa garcia [employer] 01/28/16 Hydrocodone Bit/Acetaminophen 10-325* (HYDROCODON-ACETAMINOPHN 10-325*) 1 Each Tablet, 1 EA ORAL Q6H Y for Severe Pain (Pain Scale 7-10), #1 TAB Prov:Lisa Corona [employer] 01/28/16 Ferrous Sulfate (Feosol) 325 Mg Tablet, 325 MG ORAL DAILY, #1 TAB Prov:ThomradhaLisatodd Jameson [employer] 01/28/16 Finasteride (FINASTERIDE) 5 Mg Tablet, 5 MG ORAL DAILY, #1 TAB Prov:ThomLisa garcia [employer] 01/28/16 Dronabinol* (MARINOL*) 2.5 Mg Capsule, 5 MG ORAL BID, #1 CAP Prov:ThomradhaLisatodd Jameson [employer] 01/28/16 Clonidine HCl (Clonidine HCl) 0.1 Mg Tablet, 0.1 MG ORAL Q8H Y for sbp>170, #1 TAB Prov:ThomLisa garcia [employer] 01/28/16 Amlodipine Besylate (Norvasc) 5 Mg Tablet, 5 MG ORAL DAILY, #1 TAB Prov:Lisa Corona [employer] 01/28/16 Atorvastatin Calcium* (LIPITOR*) 20 Mg Tablet, 20 MG ORAL BEDTIME, #1 TAB Prov:ThomLisa garcia [employer] 01/28/16 Aspirin Ec* (ASPIRIN EC*) 81 Mg Tablet.dr, 81 MG ORAL DAILY, #1 TAB Prov:ThomLisa garcia [employer] 01/28/16 Allopurinol* (ALLOPURINOL*) 100 Mg Tablet, 300 MG ORAL DAILY, #1 TAB Prov:Lisa Corona [employer] 01/28/16 Reported Medications Thalidomide (THALOMID) 50 Mg Capsule, 50 MG PO DAILY, CAP 06/19/16 Lansoprazole* (LANSOPRAZOLE*) 15 Mg Capsule.dr, 15 MG ORAL DAILY, CAP 06/19/16 Ondansetron* (ZOFRAN*) 4 Mg Tablet, 4 MG ORAL Q6H Y for Nausea & Vomiting, TAB 06/19/16 Acyclovir* (ACYCLOVIR*) 400 Mg Tablet, 400 MG ORAL BID, TAB 06/19/16 Clonidine Hcl* (CATAPRES*) 0.1 Mg Tablet, 0.1 MG ORAL EVERY 6 HOURS, TAB 07/02/15 Allergies: Coded Allergies: No Known Allergies (Unverified , 04/23/13) GI: Plan Plan The patient was seen and examined at bedside and all new and available data was reviewed in the patients chart. I agree with the above findings, impression and plan. (Patient seen earlier today. Signature stamp does not reflect patient encounter time.). - MD Yanique [facility] [place] Mar 28, 2017 16:44 KATHY WATSON Mar 29, 2017 15:18
[2017-03-28] MEDS: Dronabinol 2.5mg Cap ORAL SCH (18:15)
[2017-03-28] MEDS: Tamsulosin 0.4mg cap ORAL SCH (18:15)
--- NOTE | 2017-03-28 19:04 | History & Physical ---
History and Physical History & Physicial Dictated for Int Med-Dr Villagomez no. [id number]. ELLY ELIAS Mar 28, 2017 19:04
--- NOTE | 2017-03-28 19:04 | History & Physical ---
History and Physical History & Physicial Dictated for Int Med-Dr Villagomez no. [id number]. ELLY ELIAS Mar 28, 2017 19:04
--- NOTE | 2017-03-28 19:04 | History & Physical ---
History and Physical History & Physicial Dictated for Int Med-Dr Villagomez no. [id number]. ELLY ELIAS Mar 28, 2017 19:04
[2017-03-28 19:39] VITALS: BP 130/69
[2017-03-28] MEDS ORDERED: Heparin 5000 units/ml inj SUBQ SCH (21:00)
[2017-03-28] MEDS: Nortriptyline 25mg cap ORAL SCH (22:22)
[2017-03-28] MEDS: Atorvastatin 20mg tab ORAL SCH (22:22)
[2017-03-28] MEDS: Metoprolol 25mg tab ORAL SCH (22:22)
[2017-03-28 23:48] VITALS: BP 128/72
[2017-03-29] MEDS: D5 1/2NS 1,000 ML IV SCH (03:41)
[2017-03-29 04:07] VITALS: BP 130/75
[2017-03-29 06:58] LABS: ALANINE AMINOTRANSFERASE 22 U/L (12-78); ALBUMIN 3.3 G/DL (3.4-5.0); ALBUMIN/GLOBULIN RATIO 1.2 (1.0-2.7); ALKALINE PHOSPHATASE 92 U/L (46-116); AMYLASE 87 U/L (25-115); ANION GAP 11 mmol/L (5-15); ASPARTATE AMINO TRANSFERASE 13 U/L (15-37); BLOOD UREA NITROGEN 21 mg/dL (7-18); CALCIUM 8.5 MG/DL (8.5-10.1); CARBON DIOXIDE 21 MMOL/L (21-32); CHLORIDE 110 MMOL/L (98-107); CREATININE 1.3 MG/DL (0.55-1.30); POTASSIUM 3.3 MMOL/L (3.5-5.1); SODIUM 142 MMOL/L (136-145)
[2017-03-29 07:05] LABS: PHOSPHORUS 3.2 MG/DL (2.5-4.9)
[2017-03-29 07:07] LABS: HEMATOCRIT 33.8 % (42.0-52.0); HEMOGLOBIN 11.6 G/DL (14.2-18.0); MEAN CORPUSCULAR VOLUME 99 FL (80-99); PLATELET COUNT 58 K/UL (150-450); RED BLOOD COUNT 3.42 M/UL (4.70-6.10); WHITE BLOOD COUNT 7.2 K/UL (4.8-10.8)
[2017-03-29 08:00] VITALS: BP 112/64
[2017-03-29] MEDS: Metoprolol 25mg tab ORAL SCH ×2 (08:43→22:13)
[2017-03-29] MEDS: Dronabinol 2.5mg Cap ORAL SCH ×2 (08:43→17:34)
[2017-03-29] MEDS: Tamsulosin 0.4mg cap ORAL SCH ×2 (08:43→17:34)
[2017-03-29] MEDS: Aspirin EC 81mg tab ORAL SCH (08:44)
[2017-03-29] MEDS ORDERED: Lansoprazole 15mg cap ORAL SCH (09:00)
--- NOTE | 2017-03-29 09:31 | History and Physical Report ---
DATE OF ADMISSION: 03/28/2017 CHIEF COMPLAINT: The patient is a 76-year-old male, who presents with chief complaint of abdominal pain and diarrhea. HISTORY OF PRESENT ILLNESS: The patient has a history of amyloidosis of the GI tract. The patient was admitted to [facility] in June 2016. Please see history and physical and discharge summary dictated at that time. The patient has a history of amyloidosis of the GI tract. The patient also has a history of multiple myeloma. The patient is followed as an outpatient by Dr. Al. The patient is currently undergoing chemotherapy with Dr. Al for multiple myeloma. The patient presented to [facility] complaining of a three-day history of abdominal pain. The patient also has multiple bouts of watery diarrhea. The patient was admitted for abdominal pain and diarrhea to rule out infectious diarrhea. PAST MEDICAL HISTORY: Significant for: 1. Multiple myeloma, diagnosed three years ago. The patient is currently undergoing chemotherapy by Dr. Al. 2. Hypertension. 3. Anemia of chronic disease. 4. History of prostate cancer. 5. History of coronary artery disease. 6. Amyloidosis of the gastrointestinal tract. PAST SURGICAL HISTORY: Significant for: 1. Perforated appendix with exploratory laparotomy and subsequent intraabdominal abscess in May 2015. 2. Prostatectomy in 2012. 3. Coronary artery bypass graft. CURRENT MEDICATIONS: 1. Acyclovir 400 mg one tablet p.o. twice daily. 2. Tylenol 650 mg one tablet p.o. q.4 h. p.r.n. 3. Allopurinol 300 mg one tablet p.o. daily. 4. Norvasc 5 mg one tablet p.o. daily. 5. Enteric-coated aspirin 81 mg one tablet p.o. daily. 6. Lipitor 20 mg one tablet p.o. nightly. 7. Clonidine 0.1 mg p.r.n. 8. Lomotil 5 mg one tablet p.o. three times daily. 9. Marinol 5 mg one tablet p.o. twice daily. 10. Iron sulfate 325 mg one tablet p.o. daily. 11. Finasteride 5 mg one tablet p.o. daily. 12. [place] 10/325 mg one tablet p.o. q.4 times daily as needed. 13. Nexium 15 mg p.o. daily. 14. Loperamide 2 mg p.o. p.r.n. 15. Metoprolol 25 mg one tablet p.o. twice daily. 16. Nortriptyline 25 mg one tablet p.o. nightly. 17. Zofran 4 mg one tablet p.o. q.6 h. 18. Lyrica 75 mg one tablet p.o. twice daily. 19. Zantac 150 mg one tablet p.o. nightly. 20. Flomax 0.4 mg one tablet p.o. twice daily. 21. Thalomid 50 mg p.o. daily. ALLERGIES: No known drug allergies. SOCIAL HISTORY: The patient is a and lives at [facility]. The patient denies tobacco or alcohol use. REVIEW OF SYSTEMS: CONSTITUTIONAL: The patient denies weight loss or weight gain. The patient denies fevers or chills. HEENT: The patient denies ear or throat pain. The patient denies headache. CARDIOVASCULAR: The patient denies palpitations or chest pain. CHEST: The patient denies wheezes or shortness of breath. ABDOMINAL: The patient complains of abdominal pain as above. The patient complains of diarrhea as above. The patient denies nausea, vomiting, or constipation. GENITOURINARY: The patient denies dysuria or increased frequency of urination. NEUROMUSCULAR: The patient denies seizures or generalized weakness. PHYSICAL EXAMINATION: VITAL SIGNS: Temperature 97.0 degrees, respirations 16, pulse 86, and blood pressure 136/61. GENERAL: The patient is a well-developed and well-nourished male, in no apparent distress. HEENT: Eyes, pupils equal and responsive to light and accommodation. Extraocular movements are intact. NECK: Supple without lymphadenopathy. CHEST: Lungs are clear to auscultation bilaterally without wheezes or rales. CARDIOVASCULAR: Regular rhythm and rate. S1 and S2 normal without murmurs, rubs, or gallops. ABDOMEN: Soft, diffusely tender with positive bowel sounds. No evidence of rebound noted. There is some voluntary guarding noted. RECTAL: Refused. GENITAL: Refused. EXTREMITIES: Negative for clubbing, cyanosis, or edema. NEUROLOGIC: Cranial nerves II through XII are grossly intact without focal deficits. Motor strength is 5/5 bilaterally. Deep tendon reflexes are 2+ plantar. LABORATORY AND DIAGNOSTIC DATA: WBC 7.4, hemoglobin 12.6, hematocrit 38.3, and platelets decreased to 69,000. Sodium 141, potassium 4.0, chloride 110, CO2 18, BUN 25, creatinine 1.5, and glucose 88. A CT scan of the abdomen and pelvis was reported as no acute disease. ASSESSMENT: This is a 76-year-old male with: 1. Abdominal pain. 2. Diarrhea. 3. Amyloidosis of the gastrointestinal tract. 4. Multiple myeloma. 5. Hypertension. 6. Anemia. 7. Coronary artery disease. TREATMENT: 1. Abdominal pain/diarrhea. Gastroenterology consultation has been obtained with Dr. Bill Flores. We will follow recommendation of Dr. Flores. Stool studies are pending. The patient has been Dr. Flores. 2. Amyloidosis of the gastrointestinal tract as above. Gastroenterology consultation has been obtained with Dr. Bill Flores. 3. Multiple myeloma. The patient is currently undergoing chemotherapy with Dr. Al. 4. Hypertension. Continue Lopressor and Norvasc as above. 5. Anemia. Continue iron sulfate as above. 6. Coronary artery disease. Continue aspirin as above. 7. Benign prostatic hypertrophy. Continue Proscar and Flomax as above. Mando Schilling M.D. DR: Nisreen JOB#: [id number] CC:
[2017-03-29] MEDS: Pantoprazole Inj IV SCH (09:56)
[2017-03-29] MEDS: Morphine Sulfate 2mg/ml Inj IVP PRN ×2 (09:56→22:20)
--- NOTE | 2017-03-29 10:36 | Diagnostic Imaging Report ---
Indication: Abdominal pain, abnormal liver function tests and renal function tests Technique: Gonsalves-scale and duplex images of the upper abdomen were obtained Comparison: 06/16/2015. Reference also made to CT scan earlier the same day Findings: Gallbladder demonstrates no evidence of stones. There is equivocal mild gallbladder wall thickening, although this is probably artifact of under distention. Sonographic Hines's sign is negative. Common bile duct measures 4 mm in diameter. No intrahepatic biliary ductal dilatation. Liver demonstrates normal echogenicity, no focal abnormality. Portal vein and hepatic veins are patent. Pancreas is unremarkable. Spleen is unremarkable. Left kidney measures 10 cm in length. Right kidney measures 9.9 cm length. Both kidneys demonstrate normal echogenicity. There is no hydronephrosis. No focal abnormality . Non-aneurysmal abdominal aorta . Impression: Essentially unremarkable exam Negative for gallstones or dilated ducts. Borderline gallbladder wall thickening, probably artifact of under distention
[2017-03-29 12:00] VITALS: BP 133/70
[2017-03-29] MEDS: Vancomycin oral 125mg/2.5ml ORAL SCH ×3 (13:20→22:19)
--- NOTE | 2017-03-29 14:40 | GI Progress Note ---
Assessment/Plan Problems: (1) Clostridium difficile diarrhea ICD Codes: A04.72 - Enterocolitis due to Clostridium difficile, not specified as recurrent SNOMED: 3763586513661 (2) Anemia ICD Codes: D64.9 - Anemia, unspecified SNOMED: 536611860 (3) C. difficile colitis ICD Codes: A04.7 - Enterocolitis due to Clostridium difficile SNOMED: 073119526 (4) Diarrhea ICD Codes: R19.7 - Diarrhea SNOMED: 17297592 (5) Myeloma ICD Codes: C90.00 - Multiple myeloma not having achieved remission SNOMED: 824050312 (6) Amyloidosis ICD Codes: E85.9 - Amyloidosis, unspecified SNOMED: 17073271 (7) Chemotherapy-induced diarrhea ICD Codes: K52.1 - Toxic gastroenteritis and colitis; T45.1X5A - Adverse effect of antineoplastic and immunosuppressive drugs, initial encounter SNOMED: 301743540, 487824505 Status: progressing Status Narrative Discussed with Dr. Flores. Assessment/Plan s/p EGD/colonoscopy 2016 >> amyloidosis CT AP reviewed >> unremarkable cdiff positive >> vanco fu stool culture, will consider stool fat if patient has persistent diarrhea - lomotil prn after samples collected monitor H&H, prn transfusions low residual/fiber diet >> tolerating IV hydration + electrolyte replacement H2B fu labs, B12/folate/Vit D The patient was seen and examined at bedside and all new and available data was reviewed in the patients chart. I agree with the above findings, impression and plan. (Patient seen earlier today. Signature stamp does not reflect patient encounter time.). - Deborah Flores MD Subjective Subjective abdominal pain resolved continues to have diarrhea. Objective Last 24 Hour Vital Signs Date Time Temp Pulse Resp B/P (MAP) Pulse Ox O2 Delivery O2 Flow Rate FiO2 03/29/17 12:00 97.0 64 17 133/70 98 Room Air 03/29/17 10:26 98.4 03/29/17 08:44 63 112/64 03/29/17 08:43 63 112/64 03/29/17 08:00 98.4 63 17 112/64 Room Air 03/29/17 04:07 97.9 61 19 130/75 98 Room Air 03/28/17 23:48 97.5 60 19 128/72 100 Room Air 03/28/17 22:22 63 130/69 03/28/17 19:39 97.3 63 18 130/69 Room Air Intake and Output 03/29/17 03/30/17 19:00 07:00 Intake Total 300 ml Balance 300 ml IV Total 300 ml Laboratory Tests Test 03/29/17 05:55 White Blood Count 7.2 K/UL (4.8-10.8) Red Blood Count 3.42 M/UL (4.70-6.10) L Hemoglobin 11.6 G/DL (14.2-18.0) L Hematocrit 33.8 % (42.0-52.0) L Mean Corpuscular Volume 99 FL (80-99) Mean Corpuscular Hemoglobin 33.8 PG (27.0-31.0) H Mean Corpuscular Hemoglobin Concent 34.2 G/DL (32.0-36.0) Red Cell Distribution Width 15.0 % (11.6-14.8) H Platelet Count 58 K/UL (150-450) L Mean Platelet Volume 8.5 FL (6.5-10.1) Neutrophils (%) (Auto) % (45.0-75.0) Lymphocytes (%) (Auto) % (20.0-45.0) Monocytes (%) (Auto) % (1.0-10.0) Eosinophils (%) (Auto) % (0.0-3.0) Basophils (%) (Auto) % (0.0-2.0) Differential Total Cells Counted 100 Neutrophils % (Manual) 76 % (45-75) H Lymphocytes % (Manual) 14 % (20-45) L Monocytes % (Manual) 9 % (1-10) Eosinophils % (Manual) 1 % (0-3) Basophils % (Manual) 0 % (0-2) Band Neutrophils 0 % (0-8) Platelet Estimate Decreased L Platelet Morphology Normal Anisocytosis 1+ Ovalocytes Occasional Activated Partial Thromboplast Time 23 SEC (23-33) Sodium Level 142 MMOL/L (136-145) Potassium Level 3.3 MMOL/L (3.5-5.1) L Chloride Level 110 MMOL/L (98-107) H Carbon Dioxide Level 21 MMOL/L (21-32) Anion Gap 11 mmol/L (5-15) Blood Urea Nitrogen 21 mg/dL (7-18) H Creatinine 1.3 MG/DL (0.55-1.30) Estimat Glomerular Filtration Rate mL/min (>60) Glucose Level 99 MG/DL (74-106) Calcium Level 8.5 MG/DL (8.5-10.1) Phosphorus Level 3.2 MG/DL (2.5-4.9) Magnesium Level 1.9 MG/DL (1.8-2.4) Total Bilirubin 1.0 MG/DL (0.2-1.0) Aspartate Amino Transf (AST/SGOT) 13 U/L (15-37) L Alanine Aminotransferase (ALT/SGPT) 22 U/L (12-78) Alkaline Phosphatase 92 U/L (46-116) Total Protein 6.1 G/DL (6.4-8.2) L Albumin 3.3 G/DL (3.4-5.0) L Globulin 2.8 g/dL Albumin/Globulin Ratio 1.2 (1.0-2.7) Amylase Level 87 U/L (25-115) Lipase 147 U/L (73-393) Vitamin B12 Level 753 PG/ML (193-986) Vitamin D 25-Hydroxy Pending 25-Hydroxy Vitamin D2 Pending 25-Hydroxy Vitamin D3 Pending Folate 8.5 NG/ML (3.1-17.5) Microbiology Date/Time Source Procedure Growth Status 03/29/17 03:50 Stool Stool Culture Pending Resulted 03/29/17 03:50 Stool Clostridium difficile Toxin Assay - Final Resulted Height (Feet): 6 Height (Inches): 1.00 Weight (Pounds): 199 General Appearance: WD/WN, no apparent distress, alert Cardiovascular: normal rate Respiratory/Chest: normal breath sounds, no respiratory distress Abdominal Exam: normal bowel sounds, non tender, soft Extremities: normal range of motion, non-tender Domenica Chanel N.P. Mar 29, 2017 14:40 KATHY FLORES Mar 29, 2017 15:22
--- NOTE | 2017-03-29 14:40 | GI Progress Note ---
Assessment/Plan Problems: (1) Clostridium difficile diarrhea ICD Codes: A04.72 - Enterocolitis due to Clostridium difficile, not specified as recurrent SNOMED: 7281565674169 (2) Anemia ICD Codes: D64.9 - Anemia, unspecified SNOMED: 063458972 (3) C. difficile colitis ICD Codes: A04.7 - Enterocolitis due to Clostridium difficile SNOMED: 141451613 (4) Diarrhea ICD Codes: R19.7 - Diarrhea SNOMED: 07790534 (5) Myeloma ICD Codes: C90.00 - Multiple myeloma not having achieved remission SNOMED: 079022271 (6) Amyloidosis ICD Codes: E85.9 - Amyloidosis, unspecified SNOMED: 62626141 (7) Chemotherapy-induced diarrhea ICD Codes: K52.1 - Toxic gastroenteritis and colitis; T45.1X5A - Adverse effect of antineoplastic and immunosuppressive drugs, initial encounter SNOMED: 148170189, 933442603 Status: progressing Status Narrative Discussed with Dr. Flores. Assessment/Plan s/p EGD/colonoscopy 2016 >> amyloidosis CT AP reviewed >> unremarkable cdiff positive >> vanco fu stool culture, will consider stool fat if patient has persistent diarrhea - lomotil prn after samples collected monitor H&H, prn transfusions low residual/fiber diet >> tolerating IV hydration + electrolyte replacement H2B fu labs, B12/folate/Vit D The patient was seen and examined at bedside and all new and available data was reviewed in the patients chart. I agree with the above findings, impression and plan. (Patient seen earlier today. Signature stamp does not reflect patient encounter time.). - Deborah Flores MD Subjective Subjective abdominal pain resolved continues to have diarrhea. Objective Last 24 Hour Vital Signs Date Time Temp Pulse Resp B/P (MAP) Pulse Ox O2 Delivery O2 Flow Rate FiO2 03/29/17 12:00 97.0 64 17 133/70 98 Room Air 03/29/17 10:26 98.4 03/29/17 08:44 63 112/64 03/29/17 08:43 63 112/64 03/29/17 08:00 98.4 63 17 112/64 Room Air 03/29/17 04:07 97.9 61 19 130/75 98 Room Air 03/28/17 23:48 97.5 60 19 128/72 100 Room Air 03/28/17 22:22 63 130/69 03/28/17 19:39 97.3 63 18 130/69 Room Air Intake and Output 03/29/17 03/30/17 19:00 07:00 Intake Total 300 ml Balance 300 ml IV Total 300 ml Laboratory Tests Test 03/29/17 05:55 White Blood Count 7.2 K/UL (4.8-10.8) Red Blood Count 3.42 M/UL (4.70-6.10) L Hemoglobin 11.6 G/DL (14.2-18.0) L Hematocrit 33.8 % (42.0-52.0) L Mean Corpuscular Volume 99 FL (80-99) Mean Corpuscular Hemoglobin 33.8 PG (27.0-31.0) H Mean Corpuscular Hemoglobin Concent 34.2 G/DL (32.0-36.0) Red Cell Distribution Width 15.0 % (11.6-14.8) H Platelet Count 58 K/UL (150-450) L Mean Platelet Volume 8.5 FL (6.5-10.1) Neutrophils (%) (Auto) % (45.0-75.0) Lymphocytes (%) (Auto) % (20.0-45.0) Monocytes (%) (Auto) % (1.0-10.0) Eosinophils (%) (Auto) % (0.0-3.0) Basophils (%) (Auto) % (0.0-2.0) Differential Total Cells Counted 100 Neutrophils % (Manual) 76 % (45-75) H Lymphocytes % (Manual) 14 % (20-45) L Monocytes % (Manual) 9 % (1-10) Eosinophils % (Manual) 1 % (0-3) Basophils % (Manual) 0 % (0-2) Band Neutrophils 0 % (0-8) Platelet Estimate Decreased L Platelet Morphology Normal Anisocytosis 1+ Ovalocytes Occasional Activated Partial Thromboplast Time 23 SEC (23-33) Sodium Level 142 MMOL/L (136-145) Potassium Level 3.3 MMOL/L (3.5-5.1) L Chloride Level 110 MMOL/L (98-107) H Carbon Dioxide Level 21 MMOL/L (21-32) Anion Gap 11 mmol/L (5-15) Blood Urea Nitrogen 21 mg/dL (7-18) H Creatinine 1.3 MG/DL (0.55-1.30) Estimat Glomerular Filtration Rate mL/min (>60) Glucose Level 99 MG/DL (74-106) Calcium Level 8.5 MG/DL (8.5-10.1) Phosphorus Level 3.2 MG/DL (2.5-4.9) Magnesium Level 1.9 MG/DL (1.8-2.4) Total Bilirubin 1.0 MG/DL (0.2-1.0) Aspartate Amino Transf (AST/SGOT) 13 U/L (15-37) L Alanine Aminotransferase (ALT/SGPT) 22 U/L (12-78) Alkaline Phosphatase 92 U/L (46-116) Total Protein 6.1 G/DL (6.4-8.2) L Albumin 3.3 G/DL (3.4-5.0) L Globulin 2.8 g/dL Albumin/Globulin Ratio 1.2 (1.0-2.7) Amylase Level 87 U/L (25-115) Lipase 147 U/L (73-393) Vitamin B12 Level 753 PG/ML (193-986) Vitamin D 25-Hydroxy Pending 25-Hydroxy Vitamin D2 Pending 25-Hydroxy Vitamin D3 Pending Folate 8.5 NG/ML (3.1-17.5) Microbiology Date/Time Source Procedure Growth Status 03/29/17 03:50 Stool Stool Culture Pending Resulted 03/29/17 03:50 Stool Clostridium difficile Toxin Assay - Final Resulted Height (Feet): 6 Height (Inches): 1.00 Weight (Pounds): 199 General Appearance: WD/WN, no apparent distress, alert Cardiovascular: normal rate Respiratory/Chest: normal breath sounds, no respiratory distress Abdominal Exam: normal bowel sounds, non tender, soft Extremities: normal range of motion, non-tender Domenica Chanel N.P. Mar 29, 2017 14:40 KATHY FLORES Mar 29, 2017 15:22
--- NOTE | 2017-03-29 14:40 | GI Progress Note ---
Assessment/Plan Problems: (1) Clostridium difficile diarrhea ICD Codes: A04.72 - Enterocolitis due to Clostridium difficile, not specified as recurrent SNOMED: 5968272165369 (2) Anemia ICD Codes: D64.9 - Anemia, unspecified SNOMED: 834766807 (3) C. difficile colitis ICD Codes: A04.7 - Enterocolitis due to Clostridium difficile SNOMED: 479506918 (4) Diarrhea ICD Codes: R19.7 - Diarrhea SNOMED: 52372248 (5) Myeloma ICD Codes: C90.00 - Multiple myeloma not having achieved remission SNOMED: 471626578 (6) Amyloidosis ICD Codes: E85.9 - Amyloidosis, unspecified SNOMED: 05726716 (7) Chemotherapy-induced diarrhea ICD Codes: K52.1 - Toxic gastroenteritis and colitis; T45.1X5A - Adverse effect of antineoplastic and immunosuppressive drugs, initial encounter SNOMED: 346911273, 659800878 Status: progressing Status Narrative Discussed with Dr. Flores. Assessment/Plan s/p EGD/colonoscopy 2016 >> amyloidosis CT AP reviewed >> unremarkable cdiff positive >> vanco fu stool culture, will consider stool fat if patient has persistent diarrhea - lomotil prn after samples collected monitor H&H, prn transfusions low residual/fiber diet >> tolerating IV hydration + electrolyte replacement H2B fu labs, B12/folate/Vit D The patient was seen and examined at bedside and all new and available data was reviewed in the patients chart. I agree with the above findings, impression and plan. (Patient seen earlier today. Signature stamp does not reflect patient encounter time.). - Deborah Flores MD Subjective Subjective abdominal pain resolved continues to have diarrhea. Objective Last 24 Hour Vital Signs Date Time Temp Pulse Resp B/P (MAP) Pulse Ox O2 Delivery O2 Flow Rate FiO2 03/29/17 12:00 97.0 64 17 133/70 98 Room Air 03/29/17 10:26 98.4 03/29/17 08:44 63 112/64 03/29/17 08:43 63 112/64 03/29/17 08:00 98.4 63 17 112/64 Room Air 03/29/17 04:07 97.9 61 19 130/75 98 Room Air 03/28/17 23:48 97.5 60 19 128/72 100 Room Air 03/28/17 22:22 63 130/69 03/28/17 19:39 97.3 63 18 130/69 Room Air Intake and Output 03/29/17 03/30/17 19:00 07:00 Intake Total 300 ml Balance 300 ml IV Total 300 ml Laboratory Tests Test 03/29/17 05:55 White Blood Count 7.2 K/UL (4.8-10.8) Red Blood Count 3.42 M/UL (4.70-6.10) L Hemoglobin 11.6 G/DL (14.2-18.0) L Hematocrit 33.8 % (42.0-52.0) L Mean Corpuscular Volume 99 FL (80-99) Mean Corpuscular Hemoglobin 33.8 PG (27.0-31.0) H Mean Corpuscular Hemoglobin Concent 34.2 G/DL (32.0-36.0) Red Cell Distribution Width 15.0 % (11.6-14.8) H Platelet Count 58 K/UL (150-450) L Mean Platelet Volume 8.5 FL (6.5-10.1) Neutrophils (%) (Auto) % (45.0-75.0) Lymphocytes (%) (Auto) % (20.0-45.0) Monocytes (%) (Auto) % (1.0-10.0) Eosinophils (%) (Auto) % (0.0-3.0) Basophils (%) (Auto) % (0.0-2.0) Differential Total Cells Counted 100 Neutrophils % (Manual) 76 % (45-75) H Lymphocytes % (Manual) 14 % (20-45) L Monocytes % (Manual) 9 % (1-10) Eosinophils % (Manual) 1 % (0-3) Basophils % (Manual) 0 % (0-2) Band Neutrophils 0 % (0-8) Platelet Estimate Decreased L Platelet Morphology Normal Anisocytosis 1+ Ovalocytes Occasional Activated Partial Thromboplast Time 23 SEC (23-33) Sodium Level 142 MMOL/L (136-145) Potassium Level 3.3 MMOL/L (3.5-5.1) L Chloride Level 110 MMOL/L (98-107) H Carbon Dioxide Level 21 MMOL/L (21-32) Anion Gap 11 mmol/L (5-15) Blood Urea Nitrogen 21 mg/dL (7-18) H Creatinine 1.3 MG/DL (0.55-1.30) Estimat Glomerular Filtration Rate mL/min (>60) Glucose Level 99 MG/DL (74-106) Calcium Level 8.5 MG/DL (8.5-10.1) Phosphorus Level 3.2 MG/DL (2.5-4.9) Magnesium Level 1.9 MG/DL (1.8-2.4) Total Bilirubin 1.0 MG/DL (0.2-1.0) Aspartate Amino Transf (AST/SGOT) 13 U/L (15-37) L Alanine Aminotransferase (ALT/SGPT) 22 U/L (12-78) Alkaline Phosphatase 92 U/L (46-116) Total Protein 6.1 G/DL (6.4-8.2) L Albumin 3.3 G/DL (3.4-5.0) L Globulin 2.8 g/dL Albumin/Globulin Ratio 1.2 (1.0-2.7) Amylase Level 87 U/L (25-115) Lipase 147 U/L (73-393) Vitamin B12 Level 753 PG/ML (193-986) Vitamin D 25-Hydroxy Pending 25-Hydroxy Vitamin D2 Pending 25-Hydroxy Vitamin D3 Pending Folate 8.5 NG/ML (3.1-17.5) Microbiology Date/Time Source Procedure Growth Status 03/29/17 03:50 Stool Stool Culture Pending Resulted 03/29/17 03:50 Stool Clostridium difficile Toxin Assay - Final Resulted Height (Feet): 6 Height (Inches): 1.00 Weight (Pounds): 199 General Appearance: WD/WN, no apparent distress, alert Cardiovascular: normal rate Respiratory/Chest: normal breath sounds, no respiratory distress Abdominal Exam: normal bowel sounds, non tender, soft Extremities: normal range of motion, non-tender Domenica Chanel N.P. Mar 29, 2017 14:40 KATHY FLORES Mar 29, 2017 15:22
[2017-03-29 16:00] VITALS: BP 123/57
--- NOTE | 2017-03-29 16:44 | Consultation ---
History of Present Illness General Date patient seen: Mar 28, 2017 Chief Complaint: Diarrhea Referring physician: JASON REYES Reason for Consultation: inpatient management Present Illness HPI 76-year-old male with leukemia, on chemotherapy for the last 3 years, CAD status post CABG, p/w abdominal pain x 3 days and diarrhea. Patient states pain started gradually, localized to left lower quadrant, non radiating, burning/sharp in nature, intermittent. No relieving or exacerbating factors. Severity is 5/10. Patient reports nausea no vomiting, more than 10 episodes of watery nonbloody diarrhea per day He is ammitted for further work up. Allergies: Coded Allergies: No Known Allergies (Unverified , 04/23/13) Medication History Scheduled Acyclovir* (Acyclovir*), 400 MG ORAL BID, (Reported) Allopurinol* (Allopurinol*), 300 MG ORAL DAILY Amlodipine Besylate (Norvasc), 5 MG ORAL DAILY Aspirin Ec* (Aspirin Ec*), 81 MG ORAL DAILY Atorvastatin Calcium* (Lipitor*), 20 MG ORAL BEDTIME Clonidine Hcl* (Catapres*), 0.1 MG ORAL EVERY 6 HOURS, (Reported) Diphenoxylate Hcl/Atropine (Lomotil Tablet), 5 MG ORAL TID Dronabinol* (Marinol*), 5 MG ORAL BID Ferrous Sulfate (Feosol), 325 MG ORAL DAILY Finasteride (Finasteride), 5 MG ORAL DAILY Lansoprazole* (Lansoprazole*), 15 MG ORAL DAILY, (Reported) Metoprolol Tartrate (Metoprolol Tartrate), 25 MG ORAL Q12HR Nortriptyline HCl (Nortriptyline HCl), 25 MG ORAL QHS Ranitidine Hcl* (Zantac*), 150 MG ORAL BEDTIME Tamsulosin HCl (Flomax), 0.4 MG ORAL BID Thalidomide (Thalomid), 50 MG PO DAILY, (Reported) Scheduled PRN Acetaminophen* (Acetaminophen 325MG Tablet*), 650 MG ORAL Q4H PRN Clonidine HCl (Clonidine HCl), 0.1 MG ORAL Q8H PRN for sbp>170 Hydrocodone Bit/Acetaminophen 10-325* (Hydrocodon-Acetaminophn 10-325*), 1 EA ORAL Q6H PRN for Severe Pain (Pain Scale 7-10) Loperamide HCl (Loperamide), 2 MG ORAL Q8H PRN for Diarrhea Ondansetron* (Zofran*), 4 MG ORAL Q6H PRN for Nausea & Vomiting, (Reported) Pregabalin* (Lyrica*), 75 MG ORAL BID PRN for nerve pain Patient History Healthcare decision maker N Resuscitation status Full Code Advanced Directive on File Past Medical/Surgical History Past Medical/Surgical History: (1) Chemotherapy-induced diarrhea (2) Amyloidosis (3) Prostate cancer (4) CAD (coronary artery disease) (5) BPH (benign prostatic hyperplasia) (6) Chronic pain syndrome Review of Systems All Other Systems: negative except mentioned in HPI Physical Exam General Appearance: WD/WN Lines, tubes and drains: peripheral HEENT: normocephalic, anicteric Neck: non-tender, normal alignment Respiratory/Chest: chest wall non-tender, lungs clear Breasts: no masses Cardiovascular/Chest: normal rate Abdomen: normal bowel sounds, soft Genitourinary/Rectal: normal genital exam, normal prostate exam Extremities: non-tender Neurologic: scenario writer II-XII grossly normal, abnormal gait Last 24 Hour Vital Signs Date Time Temp Pulse Resp B/P (MAP) Pulse Ox O2 Delivery O2 Flow Rate FiO2 03/29/17 12:00 97.0 64 17 133/70 98 Room Air 03/29/17 10:26 98.4 03/29/17 08:44 63 112/64 03/29/17 08:43 63 112/64 03/29/17 08:00 98.4 63 17 112/64 Room Air 03/29/17 04:07 97.9 61 19 130/75 98 Room Air 03/28/17 23:48 97.5 60 19 128/72 100 Room Air 03/28/17 22:22 63 130/69 03/28/17 19:39 97.3 63 18 130/69 Room Air Intake and Output 03/29/17 03/30/17 19:00 07:00 Intake Total 450 ml Balance 450 ml IV Total 450 ml Laboratory Tests Test 03/29/17 05:55 White Blood Count 7.2 K/UL (4.8-10.8) Red Blood Count 3.42 M/UL (4.70-6.10) L Hemoglobin 11.6 G/DL (14.2-18.0) L Hematocrit 33.8 % (42.0-52.0) L Mean Corpuscular Volume 99 FL (80-99) Mean Corpuscular Hemoglobin 33.8 PG (27.0-31.0) H Mean Corpuscular Hemoglobin Concent 34.2 G/DL (32.0-36.0) Red Cell Distribution Width 15.0 % (11.6-14.8) H Platelet Count 58 K/UL (150-450) L Mean Platelet Volume 8.5 FL (6.5-10.1) Neutrophils (%) (Auto) % (45.0-75.0) Lymphocytes (%) (Auto) % (20.0-45.0) Monocytes (%) (Auto) % (1.0-10.0) Eosinophils (%) (Auto) % (0.0-3.0) Basophils (%) (Auto) % (0.0-2.0) Differential Total Cells Counted 100 Neutrophils % (Manual) 76 % (45-75) H Lymphocytes % (Manual) 14 % (20-45) L Monocytes % (Manual) 9 % (1-10) Eosinophils % (Manual) 1 % (0-3) Basophils % (Manual) 0 % (0-2) Band Neutrophils 0 % (0-8) Platelet Estimate Decreased L Platelet Morphology Normal Anisocytosis 1+ Ovalocytes Occasional Activated Partial Thromboplast Time 23 SEC (23-33) Sodium Level 142 MMOL/L (136-145) Potassium Level 3.3 MMOL/L (3.5-5.1) L Chloride Level 110 MMOL/L (98-107) H Carbon Dioxide Level 21 MMOL/L (21-32) Anion Gap 11 mmol/L (5-15) Blood Urea Nitrogen 21 mg/dL (7-18) H Creatinine 1.3 MG/DL (0.55-1.30) Estimat Glomerular Filtration Rate mL/min (>60) Glucose Level 99 MG/DL (74-106) Calcium Level 8.5 MG/DL (8.5-10.1) Phosphorus Level 3.2 MG/DL (2.5-4.9) Magnesium Level 1.9 MG/DL (1.8-2.4) Total Bilirubin 1.0 MG/DL (0.2-1.0) Aspartate Amino Transf (AST/SGOT) 13 U/L (15-37) L Alanine Aminotransferase (ALT/SGPT) 22 U/L (12-78) Alkaline Phosphatase 92 U/L (46-116) Total Protein 6.1 G/DL (6.4-8.2) L Albumin 3.3 G/DL (3.4-5.0) L Globulin 2.8 g/dL Albumin/Globulin Ratio 1.2 (1.0-2.7) Amylase Level 87 U/L (25-115) Lipase 147 U/L (73-393) Vitamin B12 Level 753 PG/ML (193-986) Vitamin D 25-Hydroxy Pending 25-Hydroxy Vitamin D2 Pending 25-Hydroxy Vitamin D3 Pending Folate 8.5 NG/ML (3.1-17.5) Microbiology Date/Time Source Procedure Growth Status 03/29/17 03:50 Stool Stool Culture Pending Resulted 03/29/17 03:50 Stool Clostridium difficile Toxin Assay - Final Resulted Height (Feet): 6 Height (Inches): 1.00 Weight (Pounds): 199 Medications Current Medications Medications (Trade) Dose Ordered Sig/Antionette Route PRN Reason Start Time Stop Time Status Last Admin Dose Admin Acetaminophen (Tylenol) 650 mg Q4H PRN ORAL fever 03/28/17 13:15 04/27/17 13:14 Al Hydroxide/Mg Hydroxide (Mylanta II) 30 ml Q6H PRN ORAL dyspepsia 03/28/17 13:15 04/27/17 13:14 Allopurinol (Allopurinol) 300 mg DAILY ORAL 03/29/17 09:00 04/28/17 08:59 03/29/17 08:43 Amlodipine Besylate (Norvasc) 5 mg DAILY ORAL 03/29/17 09:00 04/28/17 08:59 03/29/17 08:44 Aspirin (Ecotrin) 81 mg DAILY ORAL 03/29/17 09:00 04/28/17 08:59 03/29/17 08:44 Atorvastatin Calcium (Lipitor) 20 mg BEDTIME ORAL 03/28/17 21:00 04/27/17 20:59 03/28/17 22:22 Clonidine HCl (Catapres) 0.1 mg Q8H PRN ORAL sbp>170 03/28/17 13:15 04/27/17 13:14 Dextrose (Dextrose 50%) STAT PRN IV Hypoglycemia 03/28/17 13:15 04/27/17 13:14 Diphenhydramine HCl (Benadryl) 25 mg Q6H PRN ORAL Itching/Pruritis 03/28/17 13:15 04/27/17 13:14 Dronabinol (Marinol) 5 mg BID ORAL 03/28/17 18:00 04/27/17 17:59 03/29/17 08:43 Finasteride (Proscar) 5 mg DAILY ORAL 03/29/17 09:00 04/28/17 08:59 03/29/17 08:43 Lorazepam (Ativan 2mg/ml 1ml) 1 mg Q4H PRN IV agitation 03/28/17 13:15 04/04/17 13:14 Metoclopramide HCl (Reglan) 10 mg Q6H PRN IVP severe nausea 03/28/17 13:15 04/27/17 13:14 Metoprolol Tartrate (Lopressor) 25 mg Q12HR ORAL 03/28/17 21:00 04/27/17 20:59 03/29/17 08:43 Morphine Sulfate (Morphine Sulfate) 2 mg Q4H PRN IVP severe Pain (Pain Scale 7-10) 03/28/17 13:15 04/04/17 13:14 03/29/17 09:56 Nitroglycerin (Ntg) 0.4 mg Q5M X 3 DOSES PRN SL Prn Chest Pain 03/28/17 13:15 04/27/17 13:14 Nortriptyline HCl (Pamelor) 25 mg QHS ORAL 03/28/17 21:00 04/27/17 20:59 03/28/17 22:22 Ondansetron HCl (Zofran) 4 mg Q6H PRN IVP Nausea & Vomiting 03/28/17 13:15 04/27/17 13:14 Pantoprazole (Protonix) 40 mg DAILY IV 03/29/17 09:00 04/28/17 08:59 03/29/17 09:56 Polyethylene Glycol (Miralax) 17 gm HSPRN PRN ORAL Constipation 03/28/17 13:15 04/27/17 13:14 Pregabalin (Lyrica) 75 mg BIDPRN PRN ORAL nerve pain 03/28/17 13:15 04/27/17 13:14 Promethazine HCl (Phenergan) 25 mg Q8H PRN IV refractory nausea 03/28/17 13:15 04/27/17 13:14 Tamsulosin HCl (Flomax) 0.4 mg BID ORAL 03/28/17 18:00 04/27/17 17:59 03/29/17 08:43 Temazepam (Restoril) 15 mg HSPRN PRN ORAL Insomnia 03/28/17 13:15 04/04/17 13:14 Vancomycin HCl (Vancomycin) 125 mg FOUR TIMES A DAY ORAL 03/29/17 13:00 04/05/17 12:59 03/29/17 13:20 Assessment/Plan Problem List: (1) Abdominal pain ICD Codes: R10.9 - Abdominal pain SNOMED: 02764647 (2) CAD (coronary artery disease) ICD Codes: I25.10 - CAD (coronary artery disease) SNOMED: 42231380 (3) Diarrhea ICD Codes: R19.7 - Diarrhea SNOMED: 10660828 Assessment/Plan NPO IV fluids GI and ID evaluation check electrolytes dvt prophylaxis GOLDEN LIM Mar 29, 2017 16:44
--- NOTE | 2017-03-29 16:49 | Pulmonology Progress Note ---
Assessment/Plan Problems: (1) C. difficile colitis (2) Abdominal pain (3) CAD (coronary artery disease) (4) Diarrhea Assessment/Plan improving continue abx check electroltes ID evaluation Subjective ROS Limited/Unobtainable: No Interval Events: feeling better Allergies: Coded Allergies: No Known Allergies (Unverified , 04/23/13) Objective Last 24 Hour Vital Signs Date Time Temp Pulse Resp B/P (MAP) Pulse Ox O2 Delivery O2 Flow Rate FiO2 03/29/17 12:00 97.0 64 17 133/70 98 Room Air 03/29/17 10:26 98.4 03/29/17 08:44 63 112/64 03/29/17 08:43 63 112/64 03/29/17 08:00 98.4 63 17 112/64 Room Air 03/29/17 04:07 97.9 61 19 130/75 98 Room Air 03/28/17 23:48 97.5 60 19 128/72 100 Room Air 03/28/17 22:22 63 130/69 03/28/17 19:39 97.3 63 18 130/69 Room Air Intake and Output 03/29/17 03/30/17 19:00 07:00 Intake Total 450 ml Balance 450 ml IV Total 450 ml General Appearance: WD/WN HEENT: normocephalic, atraumatic Respiratory/Chest: chest wall non-tender, lungs clear Cardiovascular: normal peripheral pulses, regular rhythm Abdomen: normal bowel sounds, soft, non tender Genitourinary: normal external genitalia Extremities: no clubbing Skin: no ulcers Neurologic/Psychiatric: no motor/sensory deficits Lymphatic: no groin adenopathy Microbiology Date/Time Source Procedure Growth Status 03/29/17 03:50 Stool Stool Culture Pending Resulted 03/29/17 03:50 Stool Clostridium difficile Toxin Assay - Final Resulted Laboratory Tests 03/29/17 05:55: White Blood Count 7.2, Red Blood Count 3.42L, Hemoglobin 11.6L, Hematocrit 33.8L , Mean Corpuscular Volume 99, Mean Corpuscular Hemoglobin 33.8H, Mean Corpuscular Hemoglobin Concent 34.2, Red Cell Distribution Width 15.0H, Platelet Count 58L, Mean Platelet Volume 8.5, Neutrophils (%) (Auto) , Lymphocytes (%) (Auto) , Monocytes (%) (Auto) , Eosinophils (%) (Auto) , Basophils (%) (Auto) , Differential Total Cells Counted 100, Neutrophils % ( Manual) 76H, Lymphocytes % (Manual) 14L, Monocytes % (Manual) 9, Eosinophils % ( Manual) 1, Basophils % (Manual) 0, Band Neutrophils 0, Platelet Estimate DecreasedL, Platelet Morphology Normal, Anisocytosis 1+, Ovalocytes Occasional, Activated Partial Thromboplast Time 23, Sodium Level 142, Potassium Level 3.3L, Chloride Level 110H, Carbon Dioxide Level 21, Anion Gap 11, Blood Urea Nitrogen 21H, Creatinine 1.3, Estimat Glomerular Filtration Rate , Glucose Level 99, Calcium Level 8.5, Phosphorus Level 3.2, Magnesium Level 1.9, Total Bilirubin 1.0, Aspartate Amino Transf (AST/SGOT) 13L, Alanine Aminotransferase (ALT/SGPT) 22, Alkaline Phosphatase 92, Total Protein 6.1L, Albumin 3.3L, Globulin 2.8, Albumin/Globulin Ratio 1.2, Amylase Level 87, Lipase 147, Vitamin B12 Level 753 , Vitamin D 25-Hydroxy [Pending], 25-Hydroxy Vitamin D2 [Pending], 25-Hydroxy Vitamin D3 [Pending], Folate 8.5 Current Medications Medications (Trade) Dose Ordered Sig/Antionette Route PRN Reason Start Time Stop Time Status Last Admin Dose Admin Acetaminophen (Tylenol) 650 mg Q4H PRN ORAL fever 03/28/17 13:15 04/27/17 13:14 Al Hydroxide/Mg Hydroxide (Mylanta II) 30 ml Q6H PRN ORAL dyspepsia 03/28/17 13:15 04/27/17 13:14 Allopurinol (Allopurinol) 300 mg DAILY ORAL 03/29/17 09:00 04/28/17 08:59 03/29/17 08:43 Amlodipine Besylate (Norvasc) 5 mg DAILY ORAL 03/29/17 09:00 04/28/17 08:59 03/29/17 08:44 Aspirin (Ecotrin) 81 mg DAILY ORAL 03/29/17 09:00 04/28/17 08:59 03/29/17 08:44 Atorvastatin Calcium (Lipitor) 20 mg BEDTIME ORAL 03/28/17 21:00 04/27/17 20:59 03/28/17 22:22 Clonidine HCl (Catapres) 0.1 mg Q8H PRN ORAL sbp>170 03/28/17 13:15 04/27/17 13:14 Dextrose (Dextrose 50%) STAT PRN IV Hypoglycemia 03/28/17 13:15 04/27/17 13:14 Diphenhydramine HCl (Benadryl) 25 mg Q6H PRN ORAL Itching/Pruritis 03/28/17 13:15 04/27/17 13:14 Dronabinol (Marinol) 5 mg BID ORAL 03/28/17 18:00 04/27/17 17:59 03/29/17 08:43 Finasteride (Proscar) 5 mg DAILY ORAL 03/29/17 09:00 04/28/17 08:59 03/29/17 08:43 Lorazepam (Ativan 2mg/ml 1ml) 1 mg Q4H PRN IV agitation 03/28/17 13:15 04/04/17 13:14 Metoclopramide HCl (Reglan) 10 mg Q6H PRN IVP severe nausea 03/28/17 13:15 04/27/17 13:14 Metoprolol Tartrate (Lopressor) 25 mg Q12HR ORAL 03/28/17 21:00 04/27/17 20:59 03/29/17 08:43 Morphine Sulfate (Morphine Sulfate) 2 mg Q4H PRN IVP severe Pain (Pain Scale 7-10) 03/28/17 13:15 04/04/17 13:14 03/29/17 09:56 Nitroglycerin (Ntg) 0.4 mg Q5M X 3 DOSES PRN SL Prn Chest Pain 03/28/17 13:15 04/27/17 13:14 Nortriptyline HCl (Pamelor) 25 mg QHS ORAL 03/28/17 21:00 04/27/17 20:59 03/28/17 22:22 Ondansetron HCl (Zofran) 4 mg Q6H PRN IVP Nausea & Vomiting 03/28/17 13:15 04/27/17 13:14 Pantoprazole (Protonix) 40 mg DAILY IV 03/29/17 09:00 04/28/17 08:59 03/29/17 09:56 Polyethylene Glycol (Miralax) 17 gm HSPRN PRN ORAL Constipation 03/28/17 13:15 04/27/17 13:14 Pregabalin (Lyrica) 75 mg BIDPRN PRN ORAL nerve pain 03/28/17 13:15 04/27/17 13:14 Promethazine HCl (Phenergan) 25 mg Q8H PRN IV refractory nausea 03/28/17 13:15 04/27/17 13:14 Tamsulosin HCl (Flomax) 0.4 mg BID ORAL 03/28/17 18:00 04/27/17 17:59 03/29/17 08:43 Temazepam (Restoril) 15 mg HSPRN PRN ORAL Insomnia 03/28/17 13:15 04/04/17 13:14 Vancomycin HCl (Vancomycin) 125 mg FOUR TIMES A DAY ORAL 03/29/17 13:00 04/05/17 12:59 03/29/17 13:20 GOLDEN LIM Mar 29, 2017 16:49
--- NOTE | 2017-03-29 18:01 | Internal Med Progress Note ---
Subjective Date of Service: Mar 29, 2017 Physician Name Elly Elias Attending Physician Jovani Villagomez MD Current Medications Medications (Trade) Dose Ordered Sig/Antionette Route PRN Reason Start Time Stop Time Status Last Admin Dose Admin Acetaminophen (Tylenol) 650 mg Q4H PRN ORAL fever 03/28/17 13:15 04/27/17 13:14 Al Hydroxide/Mg Hydroxide (Mylanta II) 30 ml Q6H PRN ORAL dyspepsia 03/28/17 13:15 04/27/17 13:14 Allopurinol (Allopurinol) 300 mg DAILY ORAL 03/29/17 09:00 04/28/17 08:59 03/29/17 08:43 Amlodipine Besylate (Norvasc) 5 mg DAILY ORAL 03/29/17 09:00 04/28/17 08:59 03/29/17 08:44 Aspirin (Ecotrin) 81 mg DAILY ORAL 03/29/17 09:00 04/28/17 08:59 03/29/17 08:44 Atorvastatin Calcium (Lipitor) 20 mg BEDTIME ORAL 03/28/17 21:00 04/27/17 20:59 03/28/17 22:22 Clonidine HCl (Catapres) 0.1 mg Q8H PRN ORAL sbp>170 03/28/17 13:15 04/27/17 13:14 Dextrose (Dextrose 50%) STAT PRN IV Hypoglycemia 03/28/17 13:15 04/27/17 13:14 Diphenhydramine HCl (Benadryl) 25 mg Q6H PRN ORAL Itching/Pruritis 03/28/17 13:15 04/27/17 13:14 Dronabinol (Marinol) 5 mg BID ORAL 03/28/17 18:00 04/27/17 17:59 03/29/17 17:34 Finasteride (Proscar) 5 mg DAILY ORAL 03/29/17 09:00 04/28/17 08:59 03/29/17 08:43 Lorazepam (Ativan 2mg/ml 1ml) 1 mg Q4H PRN IV agitation 03/28/17 13:15 04/04/17 13:14 Metoclopramide HCl (Reglan) 10 mg Q6H PRN IVP severe nausea 03/28/17 13:15 04/27/17 13:14 Metoprolol Tartrate (Lopressor) 25 mg Q12HR ORAL 03/28/17 21:00 04/27/17 20:59 03/29/17 08:43 Morphine Sulfate (Morphine Sulfate) 2 mg Q4H PRN IVP severe Pain (Pain Scale 7-10) 03/28/17 13:15 04/04/17 13:14 03/29/17 09:56 Nitroglycerin (Ntg) 0.4 mg Q5M X 3 DOSES PRN SL Prn Chest Pain 03/28/17 13:15 04/27/17 13:14 Nortriptyline HCl (Pamelor) 25 mg QHS ORAL 03/28/17 21:00 04/27/17 20:59 03/28/17 22:22 Ondansetron HCl (Zofran) 4 mg Q6H PRN IVP Nausea & Vomiting 03/28/17 13:15 04/27/17 13:14 Pantoprazole (Protonix) 40 mg DAILY IV 03/29/17 09:00 04/28/17 08:59 03/29/17 09:56 Polyethylene Glycol (Miralax) 17 gm HSPRN PRN ORAL Constipation 03/28/17 13:15 04/27/17 13:14 Pregabalin (Lyrica) 75 mg BIDPRN PRN ORAL nerve pain 03/28/17 13:15 04/27/17 13:14 Promethazine HCl (Phenergan) 25 mg Q8H PRN IV refractory nausea 03/28/17 13:15 04/27/17 13:14 Tamsulosin HCl (Flomax) 0.4 mg BID ORAL 03/28/17 18:00 04/27/17 17:59 03/29/17 17:34 Temazepam (Restoril) 15 mg HSPRN PRN ORAL Insomnia 03/28/17 13:15 04/04/17 13:14 Vancomycin HCl (Vancomycin) 125 mg FOUR TIMES A DAY ORAL 03/29/17 13:00 04/05/17 12:59 03/29/17 17:35 Allergies: Coded Allergies: No Known Allergies (Unverified , 04/23/13) ROS Limited/Unobtainable: No Constitutional: Reports: no symptoms HEENT: Reports: no symptoms Cardiovascular: Reports: no symptoms Respiratory: Reports: no symptoms Gastrointestinal/Abdominal: Reports: abdomen distended, diarrhea Genitourinary: Reports: no symptoms Neurologic/Psychiatric: Reports: no symptoms Subjective 76 YO M admitted with abdominal pain and diarrhea. Now C. Diff Colitis. Cover for Int Antonio - Dr Villagomez Objective Last Vital Signs Date Time Temp Pulse Resp B/P (MAP) Pulse Ox O2 Delivery O2 Flow Rate FiO2 03/29/17 16:00 98.2 73 18 123/57 96 Room Air General Appearance: WD/WN, no apparent distress, alert EENT: PERRL/EOMI, normal ENT inspection Neck: non-tender, normal alignment, supple Cardiovascular: normal peripheral pulses, normal rate, regular rhythm, no gallop/murmur, no JVD Respiratory/Chest: chest wall non-tender, lungs clear, normal breath sounds, no respiratory distress, no accessory muscle use, respiratory distress Abdomen: hyperactive bowel sounds, hypoactive bowel sounds, distended, guarding , rebound, tender Extremities: normal range of motion 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, no motor/sensory deficits Skin: normal pigmentation, warm/dry Laboratory Tests Test 03/29/17 05:55 White Blood Count 7.2 K/UL (4.8-10.8) Red Blood Count 3.42 M/UL (4.70-6.10) L Hemoglobin 11.6 G/DL (14.2-18.0) L Hematocrit 33.8 % (42.0-52.0) L Mean Corpuscular Volume 99 FL (80-99) Mean Corpuscular Hemoglobin 33.8 PG (27.0-31.0) H Mean Corpuscular Hemoglobin Concent 34.2 G/DL (32.0-36.0) Red Cell Distribution Width 15.0 % (11.6-14.8) H Platelet Count 58 K/UL (150-450) L Mean Platelet Volume 8.5 FL (6.5-10.1) Neutrophils (%) (Auto) % (45.0-75.0) Lymphocytes (%) (Auto) % (20.0-45.0) Monocytes (%) (Auto) % (1.0-10.0) Eosinophils (%) (Auto) % (0.0-3.0) Basophils (%) (Auto) % (0.0-2.0) Differential Total Cells Counted 100 Neutrophils % (Manual) 76 % (45-75) H Lymphocytes % (Manual) 14 % (20-45) L Monocytes % (Manual) 9 % (1-10) Eosinophils % (Manual) 1 % (0-3) Basophils % (Manual) 0 % (0-2) Band Neutrophils 0 % (0-8) Platelet Estimate Decreased L Platelet Morphology Normal Anisocytosis 1+ Ovalocytes Occasional Activated Partial Thromboplast Time 23 SEC (23-33) Sodium Level 142 MMOL/L (136-145) Potassium Level 3.3 MMOL/L (3.5-5.1) L Chloride Level 110 MMOL/L (98-107) H Carbon Dioxide Level 21 MMOL/L (21-32) Anion Gap 11 mmol/L (5-15) Blood Urea Nitrogen 21 mg/dL (7-18) H Creatinine 1.3 MG/DL (0.55-1.30) Estimat Glomerular Filtration Rate mL/min (>60) Glucose Level 99 MG/DL (74-106) Calcium Level 8.5 MG/DL (8.5-10.1) Phosphorus Level 3.2 MG/DL (2.5-4.9) Magnesium Level 1.9 MG/DL (1.8-2.4) Total Bilirubin 1.0 MG/DL (0.2-1.0) Aspartate Amino Transf (AST/SGOT) 13 U/L (15-37) L Alanine Aminotransferase (ALT/SGPT) 22 U/L (12-78) Alkaline Phosphatase 92 U/L (46-116) Total Protein 6.1 G/DL (6.4-8.2) L Albumin 3.3 G/DL (3.4-5.0) L Globulin 2.8 g/dL Albumin/Globulin Ratio 1.2 (1.0-2.7) Amylase Level 87 U/L (25-115) Lipase 147 U/L (73-393) Vitamin B12 Level 753 PG/ML (193-986) Vitamin D 25-Hydroxy Pending 25-Hydroxy Vitamin D2 Pending 25-Hydroxy Vitamin D3 Pending Folate 8.5 NG/ML (3.1-17.5) Microbiology Date/Time Source Procedure Growth Status 03/29/17 03:50 Stool Stool Culture Pending Resulted 03/29/17 03:50 Stool Clostridium difficile Toxin Assay - Final Resulted Intake and Output 03/29/17 03/30/17 19:00 07:00 Intake Total 450 ml Balance 450 ml IV Total 450 ml Assessment/Plan Problem List: (1) Abdominal pain (2) C. difficile colitis Assessment & Plan: See GI note. Cont oral vanco (3) Clostridium difficile diarrhea (4) Amyloidosis Assessment & Plan: GI. See GI note. (5) Multiple myeloma (6) HTN (hypertension) Assessment & Plan: Cont norvasc (7) Anemia (8) BPH (benign prostatic hyperplasia) Assessment & Plan: Cont proscar and flomax (9) CAD (coronary artery disease) Status: progressing ELLY ELIAS Mar 29, 2017 18:01
[2017-03-29] MEDS: Atorvastatin 20mg tab ORAL SCH (22:12)
[2017-03-29] MEDS: Nortriptyline 25mg cap ORAL SCH (22:13)
[2017-03-30] VITALS (7 sets, daily range): BP systolic 106–124; BP diastolic 57–66
[2017-03-30 07:02] LABS: HEMATOCRIT 32.8 % (42.0-52.0); HEMOGLOBIN 10.9 G/DL (14.2-18.0); MEAN CORPUSCULAR VOLUME 98 FL (80-99); PLATELET COUNT 66 K/UL (150-450); RED BLOOD COUNT 3.34 M/UL (4.70-6.10); RED CELL DISTRIBUTION WIDTH 15.2 % (11.6-14.8); WHITE BLOOD COUNT 6.8 K/UL (4.8-10.8)
[2017-03-30 07:08] LABS: ALANINE AMINOTRANSFERASE 22 U/L (12-78); ALBUMIN/GLOBULIN RATIO 1.2 (1.0-2.7); ALKALINE PHOSPHATASE 98 U/L (46-116); ANION GAP 11 mmol/L (5-15); ASPARTATE AMINO TRANSFERASE 13 U/L (15-37); BLOOD UREA NITROGEN 15 mg/dL (7-18); CALCIUM 8.3 MG/DL (8.5-10.1); CARBON DIOXIDE 19 MMOL/L (21-32); CHLORIDE 111 MMOL/L (98-107); CREATININE 1.4 MG/DL (0.55-1.30); POTASSIUM 3.5 MMOL/L (3.5-5.1); SODIUM 141 MMOL/L (136-145)
[2017-03-30] MEDS: Metoprolol 25mg tab ORAL SCH ×2 (09:32→20:38)
[2017-03-30] MEDS: Dronabinol 2.5mg Cap ORAL SCH ×2 (09:33→18:24)
[2017-03-30] MEDS: Pantoprazole Inj IV SCH (09:34)
[2017-03-30] MEDS: Tamsulosin 0.4mg cap ORAL SCH ×2 (09:38→18:24)
[2017-03-30] MEDS: Vancomycin oral 125mg/2.5ml ORAL SCH ×4 (09:38→20:38)
[2017-03-30] MEDS: Aspirin EC 81mg tab ORAL SCH (09:39)
--- NOTE | 2017-03-30 11:12 | Consultation ---
History of Present Illness General Date patient seen: Mar 30, 2017 Time patient seen: 12:06 Chief Complaint: Diarrhea Referring physician: JASON REYES Reason for Consultation: inpatient management Present Illness HPI 76 y/o M wiht hx of GI tract amyloidosis, Multiple myeloma on chemotherapy tx for the last 3 years, HTN, hx Prostate CA s/p prostatectomy 2012, appendicitis c /w perforation s/p exp lap and subsequent development of intrabdominal abscess May 2015 CAD s/p CABG presents to ED on 03/28 with 3 day onset of non radiating , burning/sharp LLQ abd pain and watery diarrhea (>10 episodes) Denies n/v, recent travel or sick contacts, abx use, melena, hematochezia Of note, patient admitted on Jun 2016. Allergies: Coded Allergies: No Known Allergies (Unverified , 04/23/13) Medication History Scheduled Acyclovir* (Acyclovir*), 400 MG ORAL BID, (Reported) Allopurinol* (Allopurinol*), 300 MG ORAL DAILY Amlodipine Besylate (Norvasc), 5 MG ORAL DAILY Aspirin Ec* (Aspirin Ec*), 81 MG ORAL DAILY Atorvastatin Calcium* (Lipitor*), 20 MG ORAL BEDTIME Clonidine Hcl* (Catapres*), 0.1 MG ORAL EVERY 6 HOURS, (Reported) Diphenoxylate Hcl/Atropine (Lomotil Tablet), 5 MG ORAL TID Dronabinol* (Marinol*), 5 MG ORAL BID Ferrous Sulfate (Feosol), 325 MG ORAL DAILY Finasteride (Finasteride), 5 MG ORAL DAILY Lansoprazole* (Lansoprazole*), 15 MG ORAL DAILY, (Reported) Metoprolol Tartrate (Metoprolol Tartrate), 25 MG ORAL Q12HR Nortriptyline HCl (Nortriptyline HCl), 25 MG ORAL QHS Ranitidine Hcl* (Zantac*), 150 MG ORAL BEDTIME Tamsulosin HCl (Flomax), 0.4 MG ORAL BID Thalidomide (Thalomid), 50 MG PO DAILY, (Reported) Scheduled PRN Acetaminophen* (Acetaminophen 325MG Tablet*), 650 MG ORAL Q4H PRN Clonidine HCl (Clonidine HCl), 0.1 MG ORAL Q8H PRN for sbp>170 Hydrocodone Bit/Acetaminophen 10-325* (Hydrocodon-Acetaminophn 10-325*), 1 EA ORAL Q6H PRN for Severe Pain (Pain Scale 7-10) Loperamide HCl (Loperamide), 2 MG ORAL Q8H PRN for Diarrhea Ondansetron* (Zofran*), 4 MG ORAL Q6H PRN for Nausea & Vomiting, (Reported) Pregabalin* (Lyrica*), 75 MG ORAL BID PRN for nerve pain Patient History Healthcare decision maker N Resuscitation status Full Code Advanced Directive on File Patient History Narrative Pmhx: as above SH non contributory Fhx non contributory Review of Systems All Other Systems: negative except mentioned in HPI Physical Exam Physical Exam Narrative GENERAL: The patient is a well-developed and well-nourished male, in no apparent distress. HEENT: Eyes, pupils equal and responsive to light and accommodation.Extraocular movements are intact. NECK: Supple without lymphadenopathy. CHEST: Lungs are clear to auscultation bilaterally without wheezes orrales. CARDIOVASCULAR: Regular rhythm and rate. S1 and S2 normal without murmurs, rubs, or gallops. ABDOMEN: Soft, diffusely tender with positive bowel sounds. No evidence of rebound noted. EXTREMITIES: Negative for clubbing, cyanosis, or edema. NEUROLOGIC: AAO x3, no focal deficits Last 24 Hour Vital Signs Date Time Temp Pulse Resp B/P (MAP) Pulse Ox O2 Delivery O2 Flow Rate FiO2 03/30/17 09:33 66 111/56 03/30/17 09:32 66 111/56 03/30/17 08:00 97.5 66 18 117/66 100 Room Air 03/30/17 04:00 98.1 72 17 106/62 98 Room Air 03/30/17 00:00 97.9 68 17 109/64 98 Room Air 03/29/17 22:13 68 109/56 03/29/17 16:00 98.2 73 18 123/57 96 Room Air 03/29/17 12:00 97.0 64 17 133/70 98 Room Air Laboratory Tests Test 03/30/17 05:45 White Blood Count 6.8 K/UL (4.8-10.8) Red Blood Count 3.34 M/UL (4.70-6.10) L Hemoglobin 10.9 G/DL (14.2-18.0) L Hematocrit 32.8 % (42.0-52.0) L Mean Corpuscular Volume 98 FL (80-99) Mean Corpuscular Hemoglobin 32.7 PG (27.0-31.0) H Mean Corpuscular Hemoglobin Concent 33.4 G/DL (32.0-36.0) Red Cell Distribution Width 15.2 % (11.6-14.8) H Platelet Count 66 K/UL (150-450) L Mean Platelet Volume 9.7 FL (6.5-10.1) Neutrophils (%) (Auto) % (45.0-75.0) Lymphocytes (%) (Auto) % (20.0-45.0) Monocytes (%) (Auto) % (1.0-10.0) Eosinophils (%) (Auto) % (0.0-3.0) Basophils (%) (Auto) % (0.0-2.0) Differential Total Cells Counted 100 Neutrophils % (Manual) 72 % (45-75) Lymphocytes % (Manual) 12 % (20-45) L Monocytes % (Manual) 15 % (1-10) H Eosinophils % (Manual) 1 % (0-3) Basophils % (Manual) 0 % (0-2) Band Neutrophils 0 % (0-8) Platelet Estimate Decreased L Platelet Morphology Normal Anisocytosis 1+ Ovalocytes Occasional Erythrocyte Sedimentation Rate 9 MM/HR (0-20) Sodium Level 141 MMOL/L (136-145) Potassium Level 3.5 MMOL/L (3.5-5.1) Chloride Level 111 MMOL/L (98-107) H Carbon Dioxide Level 19 MMOL/L (21-32) L Anion Gap 11 mmol/L (5-15) Blood Urea Nitrogen 15 mg/dL (7-18) Creatinine 1.4 MG/DL (0.55-1.30) H Estimat Glomerular Filtration Rate mL/min (>60) Glucose Level 103 MG/DL (74-106) Calcium Level 8.3 MG/DL (8.5-10.1) L Phosphorus Level 3.0 MG/DL (2.5-4.9) Magnesium Level 1.7 MG/DL (1.8-2.4) L Total Bilirubin 1.0 MG/DL (0.2-1.0) Aspartate Amino Transf (AST/SGOT) 13 U/L (15-37) L Alanine Aminotransferase (ALT/SGPT) 22 U/L (12-78) Alkaline Phosphatase 98 U/L (46-116) C-Reactive Protein, Quantitative < 0.4 mg/dL (0.00-0.90) Total Protein 5.6 G/DL (6.4-8.2) L Albumin 3.0 G/DL (3.4-5.0) L Globulin 2.6 g/dL Albumin/Globulin Ratio 1.2 (1.0-2.7) reviewed Height (Feet): 6 Height (Inches): 1.00 Weight (Pounds): 199 Medications Current Medications Medications (Trade) Dose Ordered Sig/Antionette Route PRN Reason Start Time Stop Time Status Last Admin Dose Admin Acetaminophen (Tylenol) 650 mg Q4H PRN ORAL fever 03/28/17 13:15 04/27/17 13:14 Al Hydroxide/Mg Hydroxide (Mylanta II) 30 ml Q6H PRN ORAL dyspepsia 03/28/17 13:15 04/27/17 13:14 Allopurinol (Allopurinol) 300 mg DAILY ORAL 03/29/17 09:00 04/28/17 08:59 03/30/17 09:33 Amlodipine Besylate (Norvasc) 5 mg DAILY ORAL 03/29/17 09:00 04/28/17 08:59 03/30/17 09:33 Aspirin (Ecotrin) 81 mg DAILY ORAL 03/29/17 09:00 04/28/17 08:59 03/30/17 09:39 Atorvastatin Calcium (Lipitor) 20 mg BEDTIME ORAL 03/28/17 21:00 04/27/17 20:59 03/29/17 22:12 Clonidine HCl (Catapres) 0.1 mg Q8H PRN ORAL sbp>170 03/28/17 13:15 04/27/17 13:14 Dextrose (Dextrose 50%) STAT PRN IV Hypoglycemia 03/28/17 13:15 04/27/17 13:14 Diphenhydramine HCl (Benadryl) 25 mg Q6H PRN ORAL Itching/Pruritis 03/28/17 13:15 04/27/17 13:14 Dronabinol (Marinol) 5 mg BID ORAL 03/28/17 18:00 04/27/17 17:59 03/30/17 09:33 Finasteride (Proscar) 5 mg DAILY ORAL 03/29/17 09:00 04/28/17 08:59 03/30/17 09:34 Lorazepam (Ativan 2mg/ml 1ml) 1 mg Q4H PRN IV agitation 03/28/17 13:15 04/04/17 13:14 Metoclopramide HCl (Reglan) 10 mg Q6H PRN IVP severe nausea 03/28/17 13:15 04/27/17 13:14 Metoprolol Tartrate (Lopressor) 25 mg Q12HR ORAL 03/28/17 21:00 04/27/17 20:59 03/30/17 09:32 Morphine Sulfate (Morphine Sulfate) 2 mg Q4H PRN IVP severe Pain (Pain Scale 7-10) 03/28/17 13:15 04/04/17 13:14 03/29/17 22:20 Nitroglycerin (Ntg) 0.4 mg Q5M X 3 DOSES PRN SL Prn Chest Pain 03/28/17 13:15 04/27/17 13:14 Nortriptyline HCl (Pamelor) 25 mg QHS ORAL 03/28/17 21:00 04/27/17 20:59 03/29/17 22:13 Ondansetron HCl (Zofran) 4 mg Q6H PRN IVP Nausea & Vomiting 03/28/17 13:15 04/27/17 13:14 Pantoprazole (Protonix) 40 mg DAILY IV 03/29/17 09:00 04/28/17 08:59 03/30/17 09:34 Polyethylene Glycol (Miralax) 17 gm HSPRN PRN ORAL Constipation 03/28/17 13:15 04/27/17 13:14 Pregabalin (Lyrica) 75 mg BIDPRN PRN ORAL nerve pain 03/28/17 13:15 04/27/17 13:14 Promethazine HCl (Phenergan) 25 mg Q8H PRN IV refractory nausea 03/28/17 13:15 04/27/17 13:14 Tamsulosin HCl (Flomax) 0.4 mg BID ORAL 03/28/17 18:00 04/27/17 17:59 10/25/17 09:38 Temazepam (Restoril) 15 mg HSPRN PRN ORAL Insomnia 03/28/17 13:15 04/04/17 13:14 Vancomycin HCl (Vancomycin) 125 mg FOUR TIMES A DAY ORAL 03/29/17 13:00 04/05/17 12:59 03/30/17 09:38 Assessment/Plan Assessment/Plan Abx: PO Vancomycin 03/29- Assesment: Diarrhea- 2ry to Cdiff colitis- r/o other pathogens given immunocompromised state -CT abd/p: No definite acute process. Small sliding-type hiatal hernia, also previously described. Cardiomegaly. 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, right hip degenerative change, degenerative spondylosis, prostatomegaly with prior TURP, inferior vena cava filter -stool cx p -Cdiff + toxin A/B Immunocompromised state Multiple myeloma on chemotherapy tx for the last 3 years GI tract amyloidosis hx of appendicitis c/w perforation s/p exp lap and subsequent development of intraabdominal abscess May 2015 HTN, hx Prostate CA s/p TURP, CAD s/p CABG Plan: -Continue PO Vancomycin 125mg bid #2 for 14 days -check Giardia, cryptosporidium, cyclospora/isospora, microposridium on stool -if not improvement on above regimen, must need to consider CMV disease -f/u cx -Monitor CBC/BMP, temperatures Thank you for this consultation. Will continue to follow along with you. Discussed with Yaima Cox M.D. Mar 30, 2017 11:12
--- NOTE | 2017-03-30 11:45 | GI Progress Note ---
Assessment/Plan Problems: (1) Clostridium difficile diarrhea ICD Codes: A04.72 - Enterocolitis due to Clostridium difficile, not specified as recurrent SNOMED: 4922412543833 (2) Anemia ICD Codes: D64.9 - Anemia, unspecified SNOMED: 036073490 (3) C. difficile colitis ICD Codes: A04.7 - Enterocolitis due to Clostridium difficile SNOMED: 864556807 (4) Diarrhea ICD Codes: R19.7 - Diarrhea SNOMED: 18532096 (5) Myeloma ICD Codes: C90.00 - Multiple myeloma not having achieved remission SNOMED: 848137180 (6) Amyloidosis ICD Codes: E85.9 - Amyloidosis, unspecified SNOMED: 21176537 (7) Chemotherapy-induced diarrhea ICD Codes: K52.1 - Toxic gastroenteritis and colitis; T45.1X5A - Adverse effect of antineoplastic and immunosuppressive drugs, initial encounter SNOMED: 559819293, 603738736 Status: progressing Status Narrative Discussed with Dr. Flores. Assessment/Plan s/p EGD/colonoscopy 2015 >> amyloidosis CT AP reviewed >> unremarkable cdiff positive >> vanco folate/B12 WNL fu stool culture, will consider stool fat if patient has persistent diarrhea - lomotil prn after samples collected monitor H&H, prn transfusions low residual/fiber diet >> tolerating IV hydration + electrolyte replacement H2B fu labs, Vit D The patient was seen and examined at bedside and all new and available data was reviewed in the patients chart. I agree with the above findings, impression and plan. (Patient seen earlier today. Signature stamp does not reflect patient encounter time.). - Deborah Flores MD Subjective Subjective abdominal pain resolved diarrhea improved Objective Last 24 Hour Vital Signs Date Time Temp Pulse Resp B/P (MAP) Pulse Ox O2 Delivery O2 Flow Rate FiO2 03/30/17 09:33 66 111/56 03/30/17 09:32 66 111/56 03/30/17 08:00 97.5 66 18 117/66 100 Room Air 03/30/17 04:00 98.1 72 17 106/62 98 Room Air 03/30/17 00:00 97.9 68 17 109/64 98 Room Air 03/29/17 22:13 68 109/56 03/29/17 16:00 98.2 73 18 123/57 96 Room Air 03/29/17 12:00 97.0 64 17 133/70 98 Room Air Laboratory Tests Test 03/30/17 05:45 White Blood Count 6.8 K/UL (4.8-10.8) Red Blood Count 3.34 M/UL (4.70-6.10) L Hemoglobin 10.9 G/DL (14.2-18.0) L Hematocrit 32.8 % (42.0-52.0) L Mean Corpuscular Volume 98 FL (80-99) Mean Corpuscular Hemoglobin 32.7 PG (27.0-31.0) H Mean Corpuscular Hemoglobin Concent 33.4 G/DL (32.0-36.0) Red Cell Distribution Width 15.2 % (11.6-14.8) H Platelet Count 66 K/UL (150-450) L Mean Platelet Volume 9.7 FL (6.5-10.1) Neutrophils (%) (Auto) % (45.0-75.0) Lymphocytes (%) (Auto) % (20.0-45.0) Monocytes (%) (Auto) % (1.0-10.0) Eosinophils (%) (Auto) % (0.0-3.0) Basophils (%) (Auto) % (0.0-2.0) Differential Total Cells Counted 100 Neutrophils % (Manual) 72 % (45-75) Lymphocytes % (Manual) 12 % (20-45) L Monocytes % (Manual) 15 % (1-10) H Eosinophils % (Manual) 1 % (0-3) Basophils % (Manual) 0 % (0-2) Band Neutrophils 0 % (0-8) Platelet Estimate Decreased L Platelet Morphology Normal Anisocytosis 1+ Ovalocytes Occasional Erythrocyte Sedimentation Rate 9 MM/HR (0-20) Sodium Level 141 MMOL/L (136-145) Potassium Level 3.5 MMOL/L (3.5-5.1) Chloride Level 111 MMOL/L (98-107) H Carbon Dioxide Level 19 MMOL/L (21-32) L Anion Gap 11 mmol/L (5-15) Blood Urea Nitrogen 15 mg/dL (7-18) Creatinine 1.4 MG/DL (0.55-1.30) H Estimat Glomerular Filtration Rate mL/min (>60) Glucose Level 103 MG/DL (74-106) Calcium Level 8.3 MG/DL (8.5-10.1) L Phosphorus Level 3.0 MG/DL (2.5-4.9) Magnesium Level 1.7 MG/DL (1.8-2.4) L Total Bilirubin 1.0 MG/DL (0.2-1.0) Aspartate Amino Transf (AST/SGOT) 13 U/L (15-37) L Alanine Aminotransferase (ALT/SGPT) 22 U/L (12-78) Alkaline Phosphatase 98 U/L (46-116) C-Reactive Protein, Quantitative < 0.4 mg/dL (0.00-0.90) Total Protein 5.6 G/DL (6.4-8.2) L Albumin 3.0 G/DL (3.4-5.0) L Globulin 2.6 g/dL Albumin/Globulin Ratio 1.2 (1.0-2.7) Height (Feet): 6 Height (Inches): 1.00 Weight (Pounds): 199 General Appearance: WD/WN, no apparent distress, alert Cardiovascular: normal rate Respiratory/Chest: normal breath sounds, no respiratory distress Abdominal Exam: normal bowel sounds, non tender, soft Domenica Chanel N.P. Mar 30, 2017 11:45 KATHY FLORES Mar 31, 2017 06:51
--- NOTE | 2017-03-30 11:45 | GI Progress Note ---
Assessment/Plan Problems: (1) Clostridium difficile diarrhea ICD Codes: A04.72 - Enterocolitis due to Clostridium difficile, not specified as recurrent SNOMED: 0198461357102 (2) Anemia ICD Codes: D64.9 - Anemia, unspecified SNOMED: 328060257 (3) C. difficile colitis ICD Codes: A04.7 - Enterocolitis due to Clostridium difficile SNOMED: 060196116 (4) Diarrhea ICD Codes: R19.7 - Diarrhea SNOMED: 39222300 (5) Myeloma ICD Codes: C90.00 - Multiple myeloma not having achieved remission SNOMED: 495428609 (6) Amyloidosis ICD Codes: E85.9 - Amyloidosis, unspecified SNOMED: 16121930 (7) Chemotherapy-induced diarrhea ICD Codes: K52.1 - Toxic gastroenteritis and colitis; T45.1X5A - Adverse effect of antineoplastic and immunosuppressive drugs, initial encounter SNOMED: 169613306, 542377708 Status: progressing Status Narrative Discussed with Dr. Flores. Assessment/Plan s/p EGD/colonoscopy 2015 >> amyloidosis CT AP reviewed >> unremarkable cdiff positive >> vanco folate/B12 WNL fu stool culture, will consider stool fat if patient has persistent diarrhea - lomotil prn after samples collected monitor H&H, prn transfusions low residual/fiber diet >> tolerating IV hydration + electrolyte replacement H2B fu labs, Vit D The patient was seen and examined at bedside and all new and available data was reviewed in the patients chart. I agree with the above findings, impression and plan. (Patient seen earlier today. Signature stamp does not reflect patient encounter time.). - Deborha Flores MD Subjective Subjective abdominal pain resolved diarrhea improved Objective Last 24 Hour Vital Signs Date Time Temp Pulse Resp B/P (MAP) Pulse Ox O2 Delivery O2 Flow Rate FiO2 03/30/17 09:33 66 111/56 03/30/17 09:32 66 111/56 03/30/17 08:00 97.5 66 18 117/66 100 Room Air 03/30/17 04:00 98.1 72 17 106/62 98 Room Air 03/30/17 00:00 97.9 68 17 109/64 98 Room Air 03/29/17 22:13 68 109/56 03/29/17 16:00 98.2 73 18 123/57 96 Room Air 03/29/17 12:00 97.0 64 17 133/70 98 Room Air Laboratory Tests Test 03/30/17 05:45 White Blood Count 6.8 K/UL (4.8-10.8) Red Blood Count 3.34 M/UL (4.70-6.10) L Hemoglobin 10.9 G/DL (14.2-18.0) L Hematocrit 32.8 % (42.0-52.0) L Mean Corpuscular Volume 98 FL (80-99) Mean Corpuscular Hemoglobin 32.7 PG (27.0-31.0) H Mean Corpuscular Hemoglobin Concent 33.4 G/DL (32.0-36.0) Red Cell Distribution Width 15.2 % (11.6-14.8) H Platelet Count 66 K/UL (150-450) L Mean Platelet Volume 9.7 FL (6.5-10.1) Neutrophils (%) (Auto) % (45.0-75.0) Lymphocytes (%) (Auto) % (20.0-45.0) Monocytes (%) (Auto) % (1.0-10.0) Eosinophils (%) (Auto) % (0.0-3.0) Basophils (%) (Auto) % (0.0-2.0) Differential Total Cells Counted 100 Neutrophils % (Manual) 72 % (45-75) Lymphocytes % (Manual) 12 % (20-45) L Monocytes % (Manual) 15 % (1-10) H Eosinophils % (Manual) 1 % (0-3) Basophils % (Manual) 0 % (0-2) Band Neutrophils 0 % (0-8) Platelet Estimate Decreased L Platelet Morphology Normal Anisocytosis 1+ Ovalocytes Occasional Erythrocyte Sedimentation Rate 9 MM/HR (0-20) Sodium Level 141 MMOL/L (136-145) Potassium Level 3.5 MMOL/L (3.5-5.1) Chloride Level 111 MMOL/L (98-107) H Carbon Dioxide Level 19 MMOL/L (21-32) L Anion Gap 11 mmol/L (5-15) Blood Urea Nitrogen 15 mg/dL (7-18) Creatinine 1.4 MG/DL (0.55-1.30) H Estimat Glomerular Filtration Rate mL/min (>60) Glucose Level 103 MG/DL (74-106) Calcium Level 8.3 MG/DL (8.5-10.1) L Phosphorus Level 3.0 MG/DL (2.5-4.9) Magnesium Level 1.7 MG/DL (1.8-2.4) L Total Bilirubin 1.0 MG/DL (0.2-1.0) Aspartate Amino Transf (AST/SGOT) 13 U/L (15-37) L Alanine Aminotransferase (ALT/SGPT) 22 U/L (12-78) Alkaline Phosphatase 98 U/L (46-116) C-Reactive Protein, Quantitative < 0.4 mg/dL (0.00-0.90) Total Protein 5.6 G/DL (6.4-8.2) L Albumin 3.0 G/DL (3.4-5.0) L Globulin 2.6 g/dL Albumin/Globulin Ratio 1.2 (1.0-2.7) Height (Feet): 6 Height (Inches): 1.00 Weight (Pounds): 199 General Appearance: WD/WN, no apparent distress, alert Cardiovascular: normal rate Respiratory/Chest: normal breath sounds, no respiratory distress Abdominal Exam: normal bowel sounds, non tender, soft Domenica Chanel N.P. Mar 30, 2017 11:45 KATHY FLORES Mar 31, 2017 06:51
--- NOTE | 2017-03-30 11:45 | GI Progress Note ---
Assessment/Plan Problems: (1) Clostridium difficile diarrhea ICD Codes: A04.72 - Enterocolitis due to Clostridium difficile, not specified as recurrent SNOMED: 2111229623866 (2) Anemia ICD Codes: D64.9 - Anemia, unspecified SNOMED: 498028115 (3) C. difficile colitis ICD Codes: A04.7 - Enterocolitis due to Clostridium difficile SNOMED: 648221455 (4) Diarrhea ICD Codes: R19.7 - Diarrhea SNOMED: 68459365 (5) Myeloma ICD Codes: C90.00 - Multiple myeloma not having achieved remission SNOMED: 683194302 (6) Amyloidosis ICD Codes: E85.9 - Amyloidosis, unspecified SNOMED: 11413475 (7) Chemotherapy-induced diarrhea ICD Codes: K52.1 - Toxic gastroenteritis and colitis; T45.1X5A - Adverse effect of antineoplastic and immunosuppressive drugs, initial encounter SNOMED: 037516854, 889414774 Status: progressing Status Narrative Discussed with Dr. Flores. Assessment/Plan s/p EGD/colonoscopy 2015 >> amyloidosis CT AP reviewed >> unremarkable cdiff positive >> vanco folate/B12 WNL fu stool culture, will consider stool fat if patient has persistent diarrhea - lomotil prn after samples collected monitor H&H, prn transfusions low residual/fiber diet >> tolerating IV hydration + electrolyte replacement H2B fu labs, Vit D The patient was seen and examined at bedside and all new and available data was reviewed in the patients chart. I agree with the above findings, impression and plan. (Patient seen earlier today. Signature stamp does not reflect patient encounter time.). - Deborah Flores MD Subjective Subjective abdominal pain resolved diarrhea improved Objective Last 24 Hour Vital Signs Date Time Temp Pulse Resp B/P (MAP) Pulse Ox O2 Delivery O2 Flow Rate FiO2 03/30/17 09:33 66 111/56 03/30/17 09:32 66 111/56 03/30/17 08:00 97.5 66 18 117/66 100 Room Air 03/30/17 04:00 98.1 72 17 106/62 98 Room Air 03/30/17 00:00 97.9 68 17 109/64 98 Room Air 03/29/17 22:13 68 109/56 03/29/17 16:00 98.2 73 18 123/57 96 Room Air 03/29/17 12:00 97.0 64 17 133/70 98 Room Air Laboratory Tests Test 03/30/17 05:45 White Blood Count 6.8 K/UL (4.8-10.8) Red Blood Count 3.34 M/UL (4.70-6.10) L Hemoglobin 10.9 G/DL (14.2-18.0) L Hematocrit 32.8 % (42.0-52.0) L Mean Corpuscular Volume 98 FL (80-99) Mean Corpuscular Hemoglobin 32.7 PG (27.0-31.0) H Mean Corpuscular Hemoglobin Concent 33.4 G/DL (32.0-36.0) Red Cell Distribution Width 15.2 % (11.6-14.8) H Platelet Count 66 K/UL (150-450) L Mean Platelet Volume 9.7 FL (6.5-10.1) Neutrophils (%) (Auto) % (45.0-75.0) Lymphocytes (%) (Auto) % (20.0-45.0) Monocytes (%) (Auto) % (1.0-10.0) Eosinophils (%) (Auto) % (0.0-3.0) Basophils (%) (Auto) % (0.0-2.0) Differential Total Cells Counted 100 Neutrophils % (Manual) 72 % (45-75) Lymphocytes % (Manual) 12 % (20-45) L Monocytes % (Manual) 15 % (1-10) H Eosinophils % (Manual) 1 % (0-3) Basophils % (Manual) 0 % (0-2) Band Neutrophils 0 % (0-8) Platelet Estimate Decreased L Platelet Morphology Normal Anisocytosis 1+ Ovalocytes Occasional Erythrocyte Sedimentation Rate 9 MM/HR (0-20) Sodium Level 141 MMOL/L (136-145) Potassium Level 3.5 MMOL/L (3.5-5.1) Chloride Level 111 MMOL/L (98-107) H Carbon Dioxide Level 19 MMOL/L (21-32) L Anion Gap 11 mmol/L (5-15) Blood Urea Nitrogen 15 mg/dL (7-18) Creatinine 1.4 MG/DL (0.55-1.30) H Estimat Glomerular Filtration Rate mL/min (>60) Glucose Level 103 MG/DL (74-106) Calcium Level 8.3 MG/DL (8.5-10.1) L Phosphorus Level 3.0 MG/DL (2.5-4.9) Magnesium Level 1.7 MG/DL (1.8-2.4) L Total Bilirubin 1.0 MG/DL (0.2-1.0) Aspartate Amino Transf (AST/SGOT) 13 U/L (15-37) L Alanine Aminotransferase (ALT/SGPT) 22 U/L (12-78) Alkaline Phosphatase 98 U/L (46-116) C-Reactive Protein, Quantitative < 0.4 mg/dL (0.00-0.90) Total Protein 5.6 G/DL (6.4-8.2) L Albumin 3.0 G/DL (3.4-5.0) L Globulin 2.6 g/dL Albumin/Globulin Ratio 1.2 (1.0-2.7) Height (Feet): 6 Height (Inches): 1.00 Weight (Pounds): 199 General Appearance: WD/WN, no apparent distress, alert Cardiovascular: normal rate Respiratory/Chest: normal breath sounds, no respiratory distress Abdominal Exam: normal bowel sounds, non tender, soft Domenica Chanel N.P. Mar 30, 2017 11:45 KATHY FLORES Mar 31, 2017 06:51
--- NOTE | 2017-03-30 13:25 | Internal Med Progress Note ---
Subjective Date of Service: Mar 30, 2017 Physician Name Mando Elias Attending Physician Jovani Villagomez MD Current Medications Medications (Trade) Dose Ordered Sig/Antionette Route PRN Reason Start Time Stop Time Status Last Admin Dose Admin Acetaminophen (Tylenol) 650 mg Q4H PRN ORAL fever 03/28/17 13:15 04/27/17 13:14 Al Hydroxide/Mg Hydroxide (Mylanta II) 30 ml Q6H PRN ORAL dyspepsia 03/28/17 13:15 04/27/17 13:14 Allopurinol (Allopurinol) 300 mg DAILY ORAL 03/29/17 09:00 04/28/17 08:59 03/30/17 09:33 Amlodipine Besylate (Norvasc) 5 mg DAILY ORAL 03/29/17 09:00 04/28/17 08:59 03/30/17 09:33 Aspirin (Ecotrin) 81 mg DAILY ORAL 03/29/17 09:00 04/28/17 08:59 03/30/17 09:39 Atorvastatin Calcium (Lipitor) 20 mg BEDTIME ORAL 03/28/17 21:00 04/27/17 20:59 03/29/17 22:12 Clonidine HCl (Catapres) 0.1 mg Q8H PRN ORAL sbp>170 03/28/17 13:15 04/27/17 13:14 Dextrose (Dextrose 50%) STAT PRN IV Hypoglycemia 03/28/17 13:15 04/27/17 13:14 Diphenhydramine HCl (Benadryl) 25 mg Q6H PRN ORAL Itching/Pruritis 03/28/17 13:15 04/27/17 13:14 Dronabinol (Marinol) 5 mg BID ORAL 03/28/17 18:00 04/27/17 17:59 03/30/17 09:33 Finasteride (Proscar) 5 mg DAILY ORAL 03/29/17 09:00 04/28/17 08:59 03/30/17 09:34 Lorazepam (Ativan 2mg/ml 1ml) 1 mg Q4H PRN IV agitation 03/28/17 13:15 04/04/17 13:14 Metoclopramide HCl (Reglan) 10 mg Q6H PRN IVP severe nausea 03/28/17 13:15 04/27/17 13:14 Metoprolol Tartrate (Lopressor) 25 mg Q12HR ORAL 03/28/17 21:00 04/27/17 20:59 03/30/17 09:32 Morphine Sulfate (Morphine Sulfate) 2 mg Q4H PRN IVP severe Pain (Pain Scale 7-10) 03/28/17 13:15 04/04/17 13:14 03/29/17 22:20 Nitroglycerin (Ntg) 0.4 mg Q5M X 3 DOSES PRN SL Prn Chest Pain 03/28/17 13:15 04/27/17 13:14 Nortriptyline HCl (Pamelor) 25 mg QHS ORAL 03/28/17 21:00 04/27/17 20:59 03/29/17 22:13 Ondansetron HCl (Zofran) 4 mg Q6H PRN IVP Nausea & Vomiting 03/28/17 13:15 04/27/17 13:14 Pantoprazole (Protonix) 40 mg DAILY IV 03/29/17 09:00 04/28/17 08:59 03/30/17 09:34 Polyethylene Glycol (Miralax) 17 gm HSPRN PRN ORAL Constipation 03/28/17 13:15 04/27/17 13:14 Pregabalin (Lyrica) 75 mg BIDPRN PRN ORAL nerve pain 03/28/17 13:15 04/27/17 13:14 Promethazine HCl (Phenergan) 25 mg Q8H PRN IV refractory nausea 03/28/17 13:15 04/27/17 13:14 Tamsulosin HCl (Flomax) 0.4 mg BID ORAL 03/28/17 18:00 04/27/17 17:59 03/30/17 09:38 Temazepam (Restoril) 15 mg HSPRN PRN ORAL Insomnia 03/28/17 13:15 04/04/17 13:14 Vancomycin HCl (Vancomycin) 125 mg FOUR TIMES A DAY ORAL 03/29/17 13:00 04/05/17 12:59 03/30/17 09:38 Allergies: Coded Allergies: No Known Allergies (Unverified , 04/23/13) ROS Limited/Unobtainable: No Constitutional: Reports: no symptoms HEENT: Reports: no symptoms Cardiovascular: Reports: no symptoms Respiratory: Reports: no symptoms Gastrointestinal/Abdominal: Reports: abdomen distended, abdominal pain, diarrhea Genitourinary: Reports: no symptoms Neurologic/Psychiatric: Reports: no symptoms Subjective 76 YO M admitted with abdominal pain and diarrhea. Now C. Diff Colitis. Cover for Int Med - Dr Villagomez Objective Last Vital Signs Date Time Temp Pulse Resp B/P (MAP) Pulse Ox O2 Delivery O2 Flow Rate FiO2 03/30/17 12:00 97.5 68 17 112/57 Room Air 03/30/17 08:00 100 Laboratory Tests Test 03/30/17 05:45 White Blood Count 6.8 K/UL (4.8-10.8) Red Blood Count 3.34 M/UL (4.70-6.10) L Hemoglobin 10.9 G/DL (14.2-18.0) L Hematocrit 32.8 % (42.0-52.0) L Mean Corpuscular Volume 98 FL (80-99) Mean Corpuscular Hemoglobin 32.7 PG (27.0-31.0) H Mean Corpuscular Hemoglobin Concent 33.4 G/DL (32.0-36.0) Red Cell Distribution Width 15.2 % (11.6-14.8) H Platelet Count 66 K/UL (150-450) L Mean Platelet Volume 9.7 FL (6.5-10.1) Neutrophils (%) (Auto) % (45.0-75.0) Lymphocytes (%) (Auto) % (20.0-45.0) Monocytes (%) (Auto) % (1.0-10.0) Eosinophils (%) (Auto) % (0.0-3.0) Basophils (%) (Auto) % (0.0-2.0) Differential Total Cells Counted 100 Neutrophils % (Manual) 72 % (45-75) Lymphocytes % (Manual) 12 % (20-45) L Monocytes % (Manual) 15 % (1-10) H Eosinophils % (Manual) 1 % (0-3) Basophils % (Manual) 0 % (0-2) Band Neutrophils 0 % (0-8) Platelet Estimate Decreased L Platelet Morphology Normal Anisocytosis 1+ Ovalocytes Occasional Erythrocyte Sedimentation Rate 9 MM/HR (0-20) Sodium Level 141 MMOL/L (136-145) Potassium Level 3.5 MMOL/L (3.5-5.1) Chloride Level 111 MMOL/L (98-107) H Carbon Dioxide Level 19 MMOL/L (21-32) L Anion Gap 11 mmol/L (5-15) Blood Urea Nitrogen 15 mg/dL (7-18) Creatinine 1.4 MG/DL (0.55-1.30) H Estimat Glomerular Filtration Rate mL/min (>60) Glucose Level 103 MG/DL (74-106) Calcium Level 8.3 MG/DL (8.5-10.1) L Phosphorus Level 3.0 MG/DL (2.5-4.9) Magnesium Level 1.7 MG/DL (1.8-2.4) L Total Bilirubin 1.0 MG/DL (0.2-1.0) Aspartate Amino Transf (AST/SGOT) 13 U/L (15-37) L Alanine Aminotransferase (ALT/SGPT) 22 U/L (12-78) Alkaline Phosphatase 98 U/L (46-116) C-Reactive Protein, Quantitative < 0.4 mg/dL (0.00-0.90) Total Protein 5.6 G/DL (6.4-8.2) L Albumin 3.0 G/DL (3.4-5.0) L Globulin 2.6 g/dL Albumin/Globulin Ratio 1.2 (1.0-2.7) Microbiology Date/Time Source Procedure Growth Status 03/28/17 09:30 Blood Blood Culture - Preliminary NO GROWTH AFTER 24 HOURS Resulted 03/28/17 09:20 Blood Blood Culture - Preliminary NO GROWTH AFTER 24 HOURS Resulted 03/29/17 03:50 Stool Stool Culture Pending Resulted 03/29/17 03:50 Stool Clostridium difficile Toxin Assay - Final Resulted Objective General Appearance: WD/WN, no apparent distress, alert EENT: PERRL/EOMI, normal ENT inspection Neck: non-tender, normal alignment, supple Cardiovascular: normal peripheral pulses, normal rate, regular rhythm, no gallop/murmur, no JVD Respiratory/Chest: chest wall non-tender, lungs clear, normal breath sounds, no respiratory distress, no accessory muscle use, respiratory distress Abdomen: hyperactive bowel sounds, hypoactive bowel sounds, distended, guarding , rebound, tender Extremities: normal range of motion 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 difficile colitis Assessment & Plan: See GI note. Cont oral vanco (3) Clostridium difficile diarrhea (4) Amyloidosis Assessment & Plan: GI. See GI note. (5) Multiple myeloma (6) HTN (hypertension) Assessment & Plan: Cont norvasc (7) Anemia (8) BPH (benign prostatic hyperplasia) Assessment & Plan: Cont proscar and flomax (9) CAD (coronary artery disease) Status: progressing MANDO ELIAS Mar 30, 2017 13:25
--- NOTE | 2017-03-30 15:25 | Cardiology Report ---
APPROVED REPORT EKG Measurement Heart [id number] [place] 178P46 [id number] Sinus rhythm with premature atrial complexes Moderate voltage criteria for LVH, may be normal variant Borderline ECG
--- NOTE | 2017-03-30 15:25 | Cardiology Report ---
APPROVED REPORT EKG Measurement Heart [id number] [place] 178P46 [id number] Sinus rhythm with premature atrial complexes Moderate voltage criteria for LVH, may be normal variant Borderline ECG
--- NOTE | 2017-03-30 15:25 | Cardiology Report ---
APPROVED REPORT EKG Measurement Heart [id number] [place] 178P46 [id number] Sinus rhythm with premature atrial complexes Moderate voltage criteria for LVH, may be normal variant Borderline ECG
--- NOTE | 2017-03-30 18:41 | Pulmonology Progress Note ---
Assessment/Plan Problems: (1) C. difficile colitis (2) Abdominal pain (3) CAD (coronary artery disease) (4) Diarrhea Assessment/Plan improving continue abx check electrolytess all notes and meds reviewed Subjective ROS Limited/Unobtainable: No Constitutional: Reports: no symptoms HEENT: Repors: no symptoms Allergies: Coded Allergies: No Known Allergies (Unverified , 04/23/13) Objective Last 24 Hour Vital Signs Date Time Temp Pulse Resp B/P (MAP) Pulse Ox O2 Delivery O2 Flow Rate FiO2 03/30/17 16:00 97.3 69 18 124/66 100 Room Air 03/30/17 12:00 97.5 68 17 112/57 Room Air 03/30/17 09:33 66 111/56 03/30/17 09:32 66 111/56 03/30/17 08:00 97.5 66 18 117/66 100 Room Air 03/30/17 04:00 98.1 72 17 106/62 98 Room Air 03/30/17 00:00 97.9 68 17 109/64 98 Room Air 03/29/17 22:13 68 109/56 General Appearance: WD/WN HEENT: normocephalic, atraumatic Respiratory/Chest: chest wall non-tender, lungs clear Cardiovascular: normal peripheral pulses, normal rate Abdomen: normal bowel sounds, soft, non tender Genitourinary: normal external genitalia Extremities: no clubbing Skin: no ulcers 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 II-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 grossly normal Microbiology Date/Time Source Procedure Growth Status 03/28/17 09:30 Blood Blood Culture - Preliminary NO GROWTH AFTER 24 HOURS Resulted 03/28/17 09:20 Blood Blood Culture - Preliminary NO GROWTH AFTER 24 HOURS Resulted 03/29/17 03:50 Stool Stool Culture Pending Resulted 03/29/17 03:50 Stool Clostridium difficile Toxin Assay - Final Resulted Laboratory Tests 03/30/17 05:45: White Blood Count 6.8, Red Blood Count 3.34L, Hemoglobin 10.9L, Hematocrit 32.8L , Mean Corpuscular Volume 98, Mean Corpuscular Hemoglobin 32.7H, Mean Corpuscular Hemoglobin Concent 33.4, Red Cell Distribution Width 15.2H, Platelet Count 66L, Mean Platelet Volume 9.7, Neutrophils (%) (Auto) , Lymphocytes (%) (Auto) , Monocytes (%) (Auto) , Eosinophils (%) (Auto) , Basophils (%) (Auto) , Differential Total Cells Counted 100, Neutrophils % ( Manual) 72, Lymphocytes % (Manual) 12L, Monocytes % (Manual) 15H, Eosinophils % (Manual) 1, Basophils % (Manual) 0, Band Neutrophils 0, Platelet Estimate DecreasedL, Platelet Morphology Normal, Anisocytosis 1+, Ovalocytes Occasional, Erythrocyte Sedimentation Rate 9, Sodium Level 141, Potassium Level 3.5, Chloride Level 111H, Carbon Dioxide Level 19L, Anion Gap 11, Blood Urea Nitrogen 15, Creatinine 1.4H, Estimat Glomerular Filtration Rate , Glucose Level 103, Calcium Level 8.3L, Phosphorus Level 3.0, Magnesium Level 1.7L, Total Bilirubin 1.0, Aspartate Amino Transf (AST/SGOT) 13L, Alanine Aminotransferase (ALT/SGPT) 22, Alkaline Phosphatase 98, C-Reactive Protein, Quantitative < 0.4, Total Protein 5.6L, Albumin 3.0L, Globulin 2.6, Albumin/ Globulin Ratio 1.2 Current Medications Medications (Trade) Dose Ordered Sig/Antionette Route PRN Reason Start Time Stop Time Status Last Admin Dose Admin Acetaminophen (Tylenol) 650 mg Q4H PRN ORAL fever 03/28/17 13:15 04/27/17 13:14 Al Hydroxide/Mg Hydroxide (Mylanta II) 30 ml Q6H PRN ORAL dyspepsia 03/28/17 13:15 04/27/17 13:14 Allopurinol (Allopurinol) 300 mg DAILY ORAL 03/29/17 09:00 04/28/17 08:59 03/30/17 09:33 Amlodipine Besylate (Norvasc) 5 mg DAILY ORAL 03/29/17 09:00 04/28/17 08:59 03/30/17 09:33 Aspirin (Ecotrin) 81 mg DAILY ORAL 03/29/17 09:00 04/28/17 08:59 03/30/17 09:39 Atorvastatin Calcium (Lipitor) 20 mg BEDTIME ORAL 03/28/17 21:00 04/27/17 20:59 03/29/17 22:12 Clonidine HCl (Catapres) 0.1 mg Q8H PRN ORAL sbp>170 03/28/17 13:15 04/27/17 13:14 Dextrose (Dextrose 50%) STAT PRN IV Hypoglycemia 03/28/17 13:15 04/27/17 13:14 Diphenhydramine HCl (Benadryl) 25 mg Q6H PRN ORAL Itching/Pruritis 03/28/17 13:15 04/27/17 13:14 Dronabinol (Marinol) 5 mg BID ORAL 03/28/17 18:00 04/27/17 17:59 03/30/17 18:24 Finasteride (Proscar) 5 mg DAILY ORAL 03/29/17 09:00 04/28/17 08:59 03/30/17 09:34 Lorazepam (Ativan 2mg/ml 1ml) 1 mg Q4H PRN IV agitation 03/28/17 13:15 04/04/17 13:14 Metoclopramide HCl (Reglan) 10 mg Q6H PRN IVP severe nausea 03/28/17 13:15 04/27/17 13:14 Metoprolol Tartrate (Lopressor) 25 mg Q12HR ORAL 03/28/17 21:00 04/27/17 20:59 03/30/17 09:32 Morphine Sulfate (Morphine Sulfate) 2 mg Q4H PRN IVP severe Pain (Pain Scale 7-10) 03/28/17 13:15 04/04/17 13:14 03/29/17 22:20 Nitroglycerin (Ntg) 0.4 mg Q5M X 3 DOSES PRN SL Prn Chest Pain 03/28/17 13:15 04/27/17 13:14 Nortriptyline HCl (Pamelor) 25 mg QHS ORAL 03/28/17 21:00 04/27/17 20:59 03/29/17 22:13 Ondansetron HCl (Zofran) 4 mg Q6H PRN IVP Nausea & Vomiting 03/28/17 13:15 04/27/17 13:14 Pantoprazole (Protonix) 40 mg DAILY IV 03/29/17 09:00 04/28/17 08:59 03/30/17 09:34 Polyethylene Glycol (Miralax) 17 gm HSPRN PRN ORAL Constipation 03/28/17 13:15 04/27/17 13:14 Pregabalin (Lyrica) 75 mg BIDPRN PRN ORAL nerve pain 03/28/17 13:15 04/27/17 13:14 Promethazine HCl (Phenergan) 25 mg Q8H PRN IV refractory nausea 03/28/17 13:15 04/27/17 13:14 Tamsulosin HCl (Flomax) 0.4 mg BID ORAL 03/28/17 18:00 04/27/17 17:59 03/30/17 18:24 Temazepam (Restoril) 15 mg HSPRN PRN ORAL Insomnia 03/28/17 13:15 04/04/17 13:14 Vancomycin HCl (Vancomycin) 125 mg FOUR TIMES A DAY ORAL 03/29/17 13:00 04/05/17 12:59 03/30/17 18:24 GOLDEN LIM Mar 30, 2017 18:41
[2017-03-30] MEDS: Nortriptyline 25mg cap ORAL SCH (20:38)
[2017-03-30] MEDS: Atorvastatin 20mg tab ORAL SCH (20:38)
[2017-03-31 04:00] VITALS: BP 112/60
[2017-03-31 06:43] LABS: HEMATOCRIT 32.4 % (42.0-52.0); HEMOGLOBIN 10.9 G/DL (14.2-18.0); MEAN CORPUSCULAR VOLUME 99 FL (80-99); PLATELET COUNT 79 K/UL (150-450); RED BLOOD COUNT 3.27 M/UL (4.70-6.10); RED CELL DISTRIBUTION WIDTH 15.7 % (11.6-14.8); WHITE BLOOD COUNT 8.2 K/UL (4.8-10.8)
[2017-03-31 07:08] LABS: ANION GAP 12 mmol/L (5-15); BLOOD UREA NITROGEN 12 mg/dL (7-18); CALCIUM 8.6 MG/DL (8.5-10.1); CARBON DIOXIDE 18 MMOL/L (21-32); CHLORIDE 112 MMOL/L (98-107); CREATININE 1.3 MG/DL (0.55-1.30); POTASSIUM 3.5 MMOL/L (3.5-5.1); SODIUM 142 MMOL/L (136-145)
[2017-03-31 08:00] VITALS: BP 144/71
[2017-03-31] MEDS: Vancomycin oral 125mg/2.5ml ORAL SCH ×4 (09:50→21:32)
[2017-03-31] MEDS: Pantoprazole Inj IV SCH (09:50)
[2017-03-31] MEDS: Tamsulosin 0.4mg cap ORAL SCH ×2 (09:51→18:19)
[2017-03-31] MEDS: Aspirin EC 81mg tab ORAL SCH (09:52)
[2017-03-31] MEDS: Dronabinol 2.5mg Cap ORAL SCH ×2 (09:52→18:19)
[2017-03-31] MEDS: Metoprolol 25mg tab ORAL SCH ×2 (09:57→21:32)
[2017-03-31] MEDS ORDERED: D5 1/2NS 1000ml IV ONE (10:45)
--- NOTE | 2017-03-31 10:49 | GI Progress Note ---
Assessment/Plan Problems: (1) Clostridium difficile diarrhea ICD Codes: A04.72 - Enterocolitis due to Clostridium difficile, not specified as recurrent SNOMED: 6429874105709 (2) Anemia ICD Codes: D64.9 - Anemia, unspecified SNOMED: 032584345 (3) C. difficile colitis ICD Codes: A04.7 - Enterocolitis due to Clostridium difficile SNOMED: 352543184 (4) Diarrhea ICD Codes: R19.7 - Diarrhea SNOMED: 79026815 (5) Myeloma ICD Codes: C90.00 - Multiple myeloma not having achieved remission SNOMED: 528620900 (6) Amyloidosis ICD Codes: E85.9 - Amyloidosis, unspecified SNOMED: 20249181 (7) Chemotherapy-induced diarrhea ICD Codes: K52.1 - Toxic gastroenteritis and colitis; T45.1X5A - Adverse effect of antineoplastic and immunosuppressive drugs, initial encounter SNOMED: 401490818, 481167843 Status: stable Status Narrative Discussed with Dr. Flores. Assessment/Plan s/p EGD/colonoscopy 2015 >> amyloidosis CT AP reviewed >> unremarkable cdiff positive >> vanco folate/B12 WNL fu stool culture, will consider stool fat if patient has persistent diarrhea - lomotil prn after samples collected monitor H&H, prn transfusions low residual/fiber diet >> tolerating IV hydration + electrolyte replacement H2B fu labs, Vit D The patient was seen and examined at bedside and all new and available data was reviewed in the patients chart. I agree with the above findings, impression and plan. (Patient seen earlier today. Signature stamp does not reflect patient encounter time.). - Deborah Flores MD Subjective Subjective abdominal pain resolved recurrent diarrhea abdominal tenderness Objective Last 24 Hour Vital Signs Date Time Temp Pulse Resp B/P (MAP) Pulse Ox O2 Delivery O2 Flow Rate FiO2 03/31/17 09:57 69 156/70 03/31/17 09:57 69 156/70 03/31/17 08:00 97.7 69 18 144/71 99 Room Air 03/31/17 04:00 97.8 96 18 112/60 100 Room Air 03/30/17 23:58 97.8 70 18 121/61 100 Room Air 03/30/17 20:38 74 118/63 03/30/17 20:00 97.9 74 18 118/63 100 Room Air 10/25/17 16:00 97.3 69 18 124/66 100 Room Air 03/30/17 12:00 97.5 68 17 112/57 Room Air Laboratory Tests Test 03/31/17 02:40 03/31/17 05:00 Stool Cyclospora Smear Pending Cryptosporidium Exam (LAB) Pending Giardia Antigen Pending Isospora Exam Pending Microsporidia Identification Pending White Blood Count 8.2 K/UL (4.8-10.8) Red Blood Count 3.27 M/UL (4.70-6.10) L Hemoglobin 10.9 G/DL (14.2-18.0) L Hematocrit 32.4 % (42.0-52.0) L Mean Corpuscular Volume 99 FL (80-99) Mean Corpuscular Hemoglobin 33.4 PG (27.0-31.0) H Mean Corpuscular Hemoglobin Concent 33.8 G/DL (32.0-36.0) Red Cell Distribution Width 15.7 % (11.6-14.8) H Platelet Count 79 K/UL (150-450) L Mean Platelet Volume 9.7 FL (6.5-10.1) Neutrophils (%) (Auto) % (45.0-75.0) Lymphocytes (%) (Auto) % (20.0-45.0) Monocytes (%) (Auto) % (1.0-10.0) Eosinophils (%) (Auto) % (0.0-3.0) Basophils (%) (Auto) % (0.0-2.0) Differential Total Cells Counted 100 Neutrophils % (Manual) 83 % (45-75) H Lymphocytes % (Manual) 9 % (20-45) L Monocytes % (Manual) 8 % (1-10) Eosinophils % (Manual) 0 % (0-3) Basophils % (Manual) 0 % (0-2) Band Neutrophils 0 % (0-8) Platelet Estimate Decreased L Platelet Morphology Normal Anisocytosis 1+ Ovalocytes Occasional [place] Cells Occasional Sodium Level 142 MMOL/L (136-145) Potassium Level 3.5 MMOL/L (3.5-5.1) Chloride Level 112 MMOL/L (98-107) H Carbon Dioxide Level 18 MMOL/L (21-32) L Anion Gap 12 mmol/L (5-15) Blood Urea Nitrogen 12 mg/dL (7-18) Creatinine 1.3 MG/DL (0.55-1.30) Estimat Glomerular Filtration Rate mL/min (>60) Glucose Level 92 MG/DL (74-106) Calcium Level 8.6 MG/DL (8.5-10.1) Height (Feet): 6 Height (Inches): 1.00 Weight (Pounds): 199 General Appearance: WD/WN, no apparent distress, alert Cardiovascular: normal rate Respiratory/Chest: normal breath sounds, no respiratory distress Abdominal Exam: normal bowel sounds, non tender, soft Extremities: normal range of motion, non-tender Domenica Chanel N.P. Mar 31, 2017 10:49 KATHY FLORES Apr 01, 2017 09:35
--- NOTE | 2017-03-31 10:49 | GI Progress Note ---
Assessment/Plan Problems: (1) Clostridium difficile diarrhea ICD Codes: A04.72 - Enterocolitis due to Clostridium difficile, not specified as recurrent SNOMED: 6847858076463 (2) Anemia ICD Codes: D64.9 - Anemia, unspecified SNOMED: 534085842 (3) C. difficile colitis ICD Codes: A04.7 - Enterocolitis due to Clostridium difficile SNOMED: 864864229 (4) Diarrhea ICD Codes: R19.7 - Diarrhea SNOMED: 85987622 (5) Myeloma ICD Codes: C90.00 - Multiple myeloma not having achieved remission SNOMED: 063405839 (6) Amyloidosis ICD Codes: E85.9 - Amyloidosis, unspecified SNOMED: 65240620 (7) Chemotherapy-induced diarrhea ICD Codes: K52.1 - Toxic gastroenteritis and colitis; T45.1X5A - Adverse effect of antineoplastic and immunosuppressive drugs, initial encounter SNOMED: 192065117, 544779150 Status: stable Status Narrative Discussed with Dr. Flores. Assessment/Plan s/p EGD/colonoscopy 2015 >> amyloidosis CT AP reviewed >> unremarkable cdiff positive >> vanco folate/B12 WNL fu stool culture, will consider stool fat if patient has persistent diarrhea - lomotil prn after samples collected monitor H&H, prn transfusions low residual/fiber diet >> tolerating IV hydration + electrolyte replacement H2B fu labs, Vit D The patient was seen and examined at bedside and all new and available data was reviewed in the patients chart. I agree with the above findings, impression and plan. (Patient seen earlier today. Signature stamp does not reflect patient encounter time.). - Deborah Flores MD Subjective Subjective abdominal pain resolved recurrent diarrhea abdominal tenderness Objective Last 24 Hour Vital Signs Date Time Temp Pulse Resp B/P (MAP) Pulse Ox O2 Delivery O2 Flow Rate FiO2 03/31/17 09:57 69 156/70 03/31/17 09:57 69 156/70 03/31/17 08:00 97.7 69 18 144/71 99 Room Air 03/31/17 04:00 97.8 96 18 112/60 100 Room Air 03/30/17 23:58 97.8 70 18 121/61 100 Room Air 03/30/17 20:38 74 118/63 03/30/17 20:00 97.9 74 18 118/63 100 Room Air 10/25/17 16:00 97.3 69 18 124/66 100 Room Air 03/30/17 12:00 97.5 68 17 112/57 Room Air Laboratory Tests Test 03/31/17 02:40 03/31/17 05:00 Stool Cyclospora Smear Pending Cryptosporidium Exam (LAB) Pending Giardia Antigen Pending Isospora Exam Pending Microsporidia Identification Pending White Blood Count 8.2 K/UL (4.8-10.8) Red Blood Count 3.27 M/UL (4.70-6.10) L Hemoglobin 10.9 G/DL (14.2-18.0) L Hematocrit 32.4 % (42.0-52.0) L Mean Corpuscular Volume 99 FL (80-99) Mean Corpuscular Hemoglobin 33.4 PG (27.0-31.0) H Mean Corpuscular Hemoglobin Concent 33.8 G/DL (32.0-36.0) Red Cell Distribution Width 15.7 % (11.6-14.8) H Platelet Count 79 K/UL (150-450) L Mean Platelet Volume 9.7 FL (6.5-10.1) Neutrophils (%) (Auto) % (45.0-75.0) Lymphocytes (%) (Auto) % (20.0-45.0) Monocytes (%) (Auto) % (1.0-10.0) Eosinophils (%) (Auto) % (0.0-3.0) Basophils (%) (Auto) % (0.0-2.0) Differential Total Cells Counted 100 Neutrophils % (Manual) 83 % (45-75) H Lymphocytes % (Manual) 9 % (20-45) L Monocytes % (Manual) 8 % (1-10) Eosinophils % (Manual) 0 % (0-3) Basophils % (Manual) 0 % (0-2) Band Neutrophils 0 % (0-8) Platelet Estimate Decreased L Platelet Morphology Normal Anisocytosis 1+ Ovalocytes Occasional [place] Cells Occasional Sodium Level 142 MMOL/L (136-145) Potassium Level 3.5 MMOL/L (3.5-5.1) Chloride Level 112 MMOL/L (98-107) H Carbon Dioxide Level 18 MMOL/L (21-32) L Anion Gap 12 mmol/L (5-15) Blood Urea Nitrogen 12 mg/dL (7-18) Creatinine 1.3 MG/DL (0.55-1.30) Estimat Glomerular Filtration Rate mL/min (>60) Glucose Level 92 MG/DL (74-106) Calcium Level 8.6 MG/DL (8.5-10.1) Height (Feet): 6 Height (Inches): 1.00 Weight (Pounds): 199 General Appearance: WD/WN, no apparent distress, alert Cardiovascular: normal rate Respiratory/Chest: normal breath sounds, no respiratory distress Abdominal Exam: normal bowel sounds, non tender, soft Extremities: normal range of motion, non-tender Domenica Chanel N.P. Mar 31, 2017 10:49 KATHY FLORES Apr 01, 2017 09:35
--- NOTE | 2017-03-31 10:49 | GI Progress Note ---
Assessment/Plan Problems: (1) Clostridium difficile diarrhea ICD Codes: A04.72 - Enterocolitis due to Clostridium difficile, not specified as recurrent SNOMED: 9178386488068 (2) Anemia ICD Codes: D64.9 - Anemia, unspecified SNOMED: 601265701 (3) C. difficile colitis ICD Codes: A04.7 - Enterocolitis due to Clostridium difficile SNOMED: 003559092 (4) Diarrhea ICD Codes: R19.7 - Diarrhea SNOMED: 69883971 (5) Myeloma ICD Codes: C90.00 - Multiple myeloma not having achieved remission SNOMED: 033180591 (6) Amyloidosis ICD Codes: E85.9 - Amyloidosis, unspecified SNOMED: 28791271 (7) Chemotherapy-induced diarrhea ICD Codes: K52.1 - Toxic gastroenteritis and colitis; T45.1X5A - Adverse effect of antineoplastic and immunosuppressive drugs, initial encounter SNOMED: 264500924, 037124163 Status: stable Status Narrative Discussed with Dr. Flores. Assessment/Plan s/p EGD/colonoscopy 2015 >> amyloidosis CT AP reviewed >> unremarkable cdiff positive >> vanco folate/B12 WNL fu stool culture, will consider stool fat if patient has persistent diarrhea - lomotil prn after samples collected monitor H&H, prn transfusions low residual/fiber diet >> tolerating IV hydration + electrolyte replacement H2B fu labs, Vit D The patient was seen and examined at bedside and all new and available data was reviewed in the patients chart. I agree with the above findings, impression and plan. (Patient seen earlier today. Signature stamp does not reflect patient encounter time.). - Deborah Flores MD Subjective Subjective abdominal pain resolved recurrent diarrhea abdominal tenderness Objective Last 24 Hour Vital Signs Date Time Temp Pulse Resp B/P (MAP) Pulse Ox O2 Delivery O2 Flow Rate FiO2 03/31/17 09:57 69 156/70 03/31/17 09:57 69 156/70 03/31/17 08:00 97.7 69 18 144/71 99 Room Air 03/31/17 04:00 97.8 96 18 112/60 100 Room Air 03/30/17 23:58 97.8 70 18 121/61 100 Room Air 03/30/17 20:38 74 118/63 03/30/17 20:00 97.9 74 18 118/63 100 Room Air 10/25/17 16:00 97.3 69 18 124/66 100 Room Air 03/30/17 12:00 97.5 68 17 112/57 Room Air Laboratory Tests Test 03/31/17 02:40 03/31/17 05:00 Stool Cyclospora Smear Pending Cryptosporidium Exam (LAB) Pending Giardia Antigen Pending Isospora Exam Pending Microsporidia Identification Pending White Blood Count 8.2 K/UL (4.8-10.8) Red Blood Count 3.27 M/UL (4.70-6.10) L Hemoglobin 10.9 G/DL (14.2-18.0) L Hematocrit 32.4 % (42.0-52.0) L Mean Corpuscular Volume 99 FL (80-99) Mean Corpuscular Hemoglobin 33.4 PG (27.0-31.0) H Mean Corpuscular Hemoglobin Concent 33.8 G/DL (32.0-36.0) Red Cell Distribution Width 15.7 % (11.6-14.8) H Platelet Count 79 K/UL (150-450) L Mean Platelet Volume 9.7 FL (6.5-10.1) Neutrophils (%) (Auto) % (45.0-75.0) Lymphocytes (%) (Auto) % (20.0-45.0) Monocytes (%) (Auto) % (1.0-10.0) Eosinophils (%) (Auto) % (0.0-3.0) Basophils (%) (Auto) % (0.0-2.0) Differential Total Cells Counted 100 Neutrophils % (Manual) 83 % (45-75) H Lymphocytes % (Manual) 9 % (20-45) L Monocytes % (Manual) 8 % (1-10) Eosinophils % (Manual) 0 % (0-3) Basophils % (Manual) 0 % (0-2) Band Neutrophils 0 % (0-8) Platelet Estimate Decreased L Platelet Morphology Normal Anisocytosis 1+ Ovalocytes Occasional [place] Cells Occasional Sodium Level 142 MMOL/L (136-145) Potassium Level 3.5 MMOL/L (3.5-5.1) Chloride Level 112 MMOL/L (98-107) H Carbon Dioxide Level 18 MMOL/L (21-32) L Anion Gap 12 mmol/L (5-15) Blood Urea Nitrogen 12 mg/dL (7-18) Creatinine 1.3 MG/DL (0.55-1.30) Estimat Glomerular Filtration Rate mL/min (>60) Glucose Level 92 MG/DL (74-106) Calcium Level 8.6 MG/DL (8.5-10.1) Height (Feet): 6 Height (Inches): 1.00 Weight (Pounds): 199 General Appearance: WD/WN, no apparent distress, alert Cardiovascular: normal rate Respiratory/Chest: normal breath sounds, no respiratory distress Abdominal Exam: normal bowel sounds, non tender, soft Extremities: normal range of motion, non-tender Domenica Chanel N.P. Mar 31, 2017 10:49 KATHY FLORES Apr 01, 2017 09:35
[2017-03-31 11:51] VITALS: BP 136/63
--- NOTE | 2017-03-31 12:22 | Infectious Diseases Prog Note ---
Assessment/Plan Assessment/Plan Abx: PO Vancomycin 03/29- Assesment: Diarrhea- 2ry to Cdiff colitis- r/o other pathogens given immunocompromised state -CT abd/p: No definite acute process. Small sliding-type hiatal hernia, also previously described. Cardiomegaly. 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, right hip degenerative change, degenerative spondylosis, prostatomegaly with prior TURP, inferior vena cava filter -stool cx p -Cdiff + toxin A/B Immunocompromised state Multiple myeloma on chemotherapy tx for the last 3 years GI tract amyloidosis hx of appendicitis c/w perforation s/p exp lap and subsequent development of intraabdominal abscess May 2015 HTN, hx Prostate CA s/p TURP, CAD s/p CABG Plan: -Continue PO Vancomycin 125mg bid #08/17 -f/u Giardia, cryptosporidium, cyclospora/isospora, microposridium on stool -if not improvement on above regimen, must need to consider CMV disease -f/u cx -Monitor CBC/BMP, temperatures Thank you for this consultation. Will continue to follow along with you. Discussed with RN. Subjective Allergies: Coded Allergies: No Known Allergies (Unverified , 04/23/13) Subjective afebrile VSS no leukocytosis Bcx NTD Objective Vital Signs Last 24 Hour Vital Signs Date Time Temp Pulse Resp B/P (MAP) Pulse Ox O2 Delivery O2 Flow Rate FiO2 03/31/17 11:51 97.2 63 17 136/63 99 Room Air 03/31/17 09:57 69 156/70 03/31/17 09:57 69 156/70 03/31/17 08:00 97.7 69 18 144/71 99 Room Air 03/31/17 04:00 97.8 96 18 112/60 100 Room Air 03/30/17 23:58 97.8 70 18 121/61 100 Room Air 03/30/17 20:38 74 118/63 03/30/17 20:00 97.9 74 18 118/63 100 Room Air 03/30/17 16:00 97.3 69 18 124/66 100 Room Air Height (Feet): 6 Height (Inches): 1.00 Weight (Pounds): 199 Objective GENERAL: The patient is a well-developed and well-nourished male, in no apparent distress. HEENT: Eyes, pupils equal and responsive to light and accommodation.Extraocular movements are intact. NECK: Supple without lymphadenopathy. CHEST: Lungs are clear to auscultation bilaterally without wheezes orrales. CARDIOVASCULAR: Regular rhythm and rate. S1 and S2 normal without murmurs, rubs, or gallops. ABDOMEN: Soft, diffusely tender with positive bowel sounds. No evidence of rebound noted. EXTREMITIES: Negative for clubbing, cyanosis, or edema. NEUROLOGIC: AAO x3, no focal deficits Microbiology Date/Time Source Procedure Growth Status 03/29/17 03:50 Stool Stool Culture Pending Resulted 03/29/17 03:50 Stool Clostridium difficile Toxin Assay - Final Resulted Laboratory Tests Test 03/31/17 02:40 03/31/17 05:00 Stool Cyclospora Smear Pending Cryptosporidium Exam (LAB) Pending Giardia Antigen Pending Isospora Exam Pending Microsporidia Identification Pending White Blood Count 8.2 K/UL (4.8-10.8) Red Blood Count 3.27 M/UL (4.70-6.10) L Hemoglobin 10.9 G/DL (14.2-18.0) L Hematocrit 32.4 % (42.0-52.0) L Mean Corpuscular Volume 99 FL (80-99) Mean Corpuscular Hemoglobin 33.4 PG (27.0-31.0) H Mean Corpuscular Hemoglobin Concent 33.8 G/DL (32.0-36.0) Red Cell Distribution Width 15.7 % (11.6-14.8) H Platelet Count 79 K/UL (150-450) L Mean Platelet Volume 9.7 FL (6.5-10.1) Neutrophils (%) (Auto) % (45.0-75.0) Lymphocytes (%) (Auto) % (20.0-45.0) Monocytes (%) (Auto) % (1.0-10.0) Eosinophils (%) (Auto) % (0.0-3.0) Basophils (%) (Auto) % (0.0-2.0) Differential Total Cells Counted 100 Neutrophils % (Manual) 83 % (45-75) H Lymphocytes % (Manual) 9 % (20-45) L Monocytes % (Manual) 8 % (1-10) Eosinophils % (Manual) 0 % (0-3) Basophils % (Manual) 0 % (0-2) Band Neutrophils 0 % (0-8) Platelet Estimate Decreased L Platelet Morphology Normal Anisocytosis 1+ Ovalocytes Occasional [place] Cells Occasional Sodium Level 142 MMOL/L (136-145) Potassium Level 3.5 MMOL/L (3.5-5.1) Chloride Level 112 MMOL/L (98-107) H Carbon Dioxide Level 18 MMOL/L (21-32) L Anion Gap 12 mmol/L (5-15) Blood Urea Nitrogen 12 mg/dL (7-18) Creatinine 1.3 MG/DL (0.55-1.30) Estimat Glomerular Filtration Rate mL/min (>60) Glucose Level 92 MG/DL (74-106) Calcium Level 8.6 MG/DL (8.5-10.1) Current Medications Medications (Trade) Dose Ordered Sig/Antionette Route PRN Reason Start Time Stop Time Status Last Admin Dose Admin Acetaminophen (Tylenol) 650 mg Q4H PRN ORAL fever 03/28/17 13:15 04/27/17 13:14 Al Hydroxide/Mg Hydroxide (Mylanta II) 30 ml Q6H PRN ORAL dyspepsia 03/28/17 13:15 04/27/17 13:14 Allopurinol (Allopurinol) 300 mg DAILY ORAL 03/29/17 09:00 04/28/17 08:59 03/31/17 09:51 Amlodipine Besylate (Norvasc) 5 mg DAILY ORAL 03/29/17 09:00 04/28/17 08:59 03/31/17 09:57 Aspirin (Ecotrin) 81 mg DAILY ORAL 03/29/17 09:00 04/28/17 08:59 03/31/17 09:52 Atorvastatin Calcium (Lipitor) 20 mg BEDTIME ORAL 03/28/17 21:00 04/27/17 20:59 03/30/17 20:38 Clonidine HCl (Catapres) 0.1 mg Q8H PRN ORAL sbp>170 03/28/17 13:15 04/27/17 13:14 Dextrose (Dextrose 50%) STAT PRN IV Hypoglycemia 03/28/17 13:15 04/27/17 13:14 Diphenhydramine HCl (Benadryl) 25 mg Q6H PRN ORAL Itching/Pruritis 03/28/17 13:15 04/27/17 13:14 Diphenoxylate HCl/ Atropine (Lomotil) 2.5 mg Q4H PRN ORAL Diarrhea 03/31/17 11:00 04/30/17 10:59 Dronabinol (Marinol) 5 mg BID ORAL 03/28/17 18:00 04/27/17 17:59 03/31/17 09:52 Finasteride (Proscar) 5 mg DAILY ORAL 03/29/17 09:00 04/28/17 08:59 03/31/17 09:52 Lorazepam (Ativan 2mg/ml 1ml) 1 mg Q4H PRN IV agitation 03/28/17 13:15 04/04/17 13:14 Metoclopramide HCl (Reglan) 10 mg Q6H PRN IVP severe nausea 03/28/17 13:15 04/27/17 13:14 Metoprolol Tartrate (Lopressor) 25 mg Q12HR ORAL 03/28/17 21:00 04/27/17 20:59 03/31/17 09:57 Morphine Sulfate (Morphine Sulfate) 2 mg Q4H PRN IVP severe Pain (Pain Scale 7-10) 03/28/17 13:15 04/04/17 13:14 03/29/17 22:20 Nitroglycerin (Ntg) 0.4 mg Q5M X 3 DOSES PRN SL Prn Chest Pain 03/28/17 13:15 04/27/17 13:14 Nortriptyline HCl (Pamelor) 25 mg QHS ORAL 03/28/17 21:00 04/27/17 20:59 03/30/17 20:38 Ondansetron HCl (Zofran) 4 mg Q6H PRN IVP Nausea & Vomiting 03/28/17 13:15 04/27/17 13:14 Pantoprazole (Protonix) 40 mg DAILY IV 03/29/17 09:00 04/28/17 08:59 03/31/17 09:50 Polyethylene Glycol (Miralax) 17 gm HSPRN PRN ORAL Constipation 03/28/17 13:15 04/27/17 13:14 Pregabalin (Lyrica) 75 mg BIDPRN PRN ORAL nerve pain 03/28/17 13:15 04/27/17 13:14 Promethazine HCl (Phenergan) 25 mg Q8H PRN IV refractory nausea 03/28/17 13:15 04/27/17 13:14 Tamsulosin HCl (Flomax) 0.4 mg BID ORAL 03/28/17 18:00 04/27/17 17:59 03/31/17 09:51 Temazepam (Restoril) 15 mg HSPRN PRN ORAL Insomnia 03/28/17 13:15 04/04/17 13:14 Vancomycin HCl (Vancomycin) 125 mg FOUR TIMES A DAY ORAL 03/29/17 13:00 04/12/17 12:59 03/31/17 09:50 Yaima Nguyễn M.D. Mar 31, 2017 12:22
[2017-03-31 16:07] VITALS: BP 107/60
[2017-03-31] MEDS ORDERED: Morphine Sulfate 10mg/5ml Oral Soln ud ORAL PRN (16:15)
--- NOTE | 2017-03-31 17:24 | Internal Med Progress Note ---
Subjective Date of Service: Mar 31, 2017 Physician Name Elly Schilling Attending Physician Jovani Villagomez MD Current Medications Medications (Trade) Dose Ordered Sig/Antionette Route PRN Reason Start Time Stop Time Status Last Admin Dose Admin Acetaminophen (Tylenol) 650 mg Q4H PRN ORAL fever 03/28/17 13:15 04/27/17 13:14 Al Hydroxide/Mg Hydroxide (Mylanta II) 30 ml Q6H PRN ORAL dyspepsia 03/28/17 13:15 04/27/17 13:14 Allopurinol (Allopurinol) 300 mg DAILY ORAL 03/29/17 09:00 04/28/17 08:59 03/31/17 09:51 Amlodipine Besylate (Norvasc) 5 mg DAILY ORAL 03/29/17 09:00 04/28/17 08:59 03/31/17 09:57 Aspirin (Ecotrin) 81 mg DAILY ORAL 03/29/17 09:00 04/28/17 08:59 03/31/17 09:52 Atorvastatin Calcium (Lipitor) 20 mg BEDTIME ORAL 03/28/17 21:00 04/27/17 20:59 03/30/17 20:38 Clonidine HCl (Catapres) 0.1 mg Q8H PRN ORAL sbp>170 03/28/17 13:15 04/27/17 13:14 Dextrose (Dextrose 50%) STAT PRN IV Hypoglycemia 03/28/17 13:15 04/27/17 13:14 Diphenhydramine HCl (Benadryl) 25 mg Q6H PRN ORAL Itching/Pruritis 03/28/17 13:15 04/27/17 13:14 Diphenoxylate HCl/ Atropine (Lomotil) 2.5 mg Q4H PRN ORAL Diarrhea 03/31/17 11:00 04/30/17 10:59 Dronabinol (Marinol) 5 mg BID ORAL 03/28/17 18:00 04/27/17 17:59 03/31/17 09:52 Finasteride (Proscar) 5 mg DAILY ORAL 03/29/17 09:00 04/28/17 08:59 03/31/17 09:52 Lorazepam (Ativan 2mg/ml 1ml) 1 mg Q4H PRN IV agitation 03/28/17 13:15 04/04/17 13:14 Metoclopramide HCl (Reglan) 10 mg Q6H PRN IVP severe nausea 03/28/17 13:15 04/27/17 13:14 Metoprolol Tartrate (Lopressor) 25 mg Q12HR ORAL 03/28/17 21:00 04/27/17 20:59 03/31/17 09:57 Morphine Sulfate (Morphine 10mg/ 5ml Oral Soln) 6 mg Q4H PRN ORAL Severe Pain (Pain Scale 7-10) 03/31/17 16:15 04/07/17 16:14 Nitroglycerin (Ntg) 0.4 mg Q5M X 3 DOSES PRN SL Prn Chest Pain 03/28/17 13:15 04/27/17 13:14 Nortriptyline HCl (Pamelor) 25 mg QHS ORAL 03/28/17 21:00 04/27/17 20:59 03/30/17 20:38 Ondansetron HCl (Zofran) 4 mg Q6H PRN IVP Nausea & Vomiting 03/28/17 13:15 04/27/17 13:14 Pantoprazole (Protonix) 40 mg DAILY IV 03/29/17 09:00 04/28/17 08:59 03/31/17 09:50 Polyethylene Glycol (Miralax) 17 gm HSPRN PRN ORAL Constipation 03/28/17 13:15 04/27/17 13:14 Pregabalin (Lyrica) 75 mg BIDPRN PRN ORAL nerve pain 03/28/17 13:15 04/27/17 13:14 Promethazine HCl (Phenergan) 25 mg Q8H PRN IV refractory nausea 03/28/17 13:15 04/27/17 13:14 Tamsulosin HCl (Flomax) 0.4 mg BID ORAL 03/28/17 18:00 04/27/17 17:59 03/31/17 09:51 Temazepam (Restoril) 15 mg HSPRN PRN ORAL Insomnia 03/28/17 13:15 04/04/17 13:14 Vancomycin HCl (Vancomycin) 125 mg FOUR TIMES A DAY ORAL 03/29/17 13:00 04/12/17 12:59 03/31/17 14:06 Allergies: Coded Allergies: No Known Allergies (Unverified , 04/23/13) ROS Limited/Unobtainable: No Constitutional: Reports: no symptoms HEENT: Reports: no symptoms Cardiovascular: Reports: no symptoms Respiratory: Reports: no symptoms Gastrointestinal/Abdominal: Reports: no symptoms Genitourinary: Reports: no symptoms Neurologic/Psychiatric: Reports: no symptoms Subjective 76 YO M admitted with abdominal pain and diarrhea. Now C. Diff Colitis. Cover for Int Antonio - Dr Villagomez Objective Last Vital Signs Date Time Temp Pulse Resp B/P (MAP) Pulse Ox O2 Delivery O2 Flow Rate FiO2 03/31/17 16:07 97.9 66 18 107/60 100 Room Air Laboratory Tests Test 03/31/17 02:40 03/31/17 05:00 Stool Cyclospora Smear Pending Cryptosporidium Exam (LAB) Pending Giardia Antigen Pending Isospora Exam Pending Microsporidia Identification Pending White Blood Count 8.2 K/UL (4.8-10.8) Red Blood Count 3.27 M/UL (4.70-6.10) L Hemoglobin 10.9 G/DL (14.2-18.0) L Hematocrit 32.4 % (42.0-52.0) L Mean Corpuscular Volume 99 FL (80-99) Mean Corpuscular Hemoglobin 33.4 PG (27.0-31.0) H Mean Corpuscular Hemoglobin Concent 33.8 G/DL (32.0-36.0) Red Cell Distribution Width 15.7 % (11.6-14.8) H Platelet Count 79 K/UL (150-450) L Mean Platelet Volume 9.7 FL (6.5-10.1) Neutrophils (%) (Auto) % (45.0-75.0) Lymphocytes (%) (Auto) % (20.0-45.0) Monocytes (%) (Auto) % (1.0-10.0) Eosinophils (%) (Auto) % (0.0-3.0) Basophils (%) (Auto) % (0.0-2.0) Differential Total Cells Counted 100 Neutrophils % (Manual) 83 % (45-75) H Lymphocytes % (Manual) 9 % (20-45) L Monocytes % (Manual) 8 % (1-10) Eosinophils % (Manual) 0 % (0-3) Basophils % (Manual) 0 % (0-2) Band Neutrophils 0 % (0-8) Platelet Estimate Decreased L Platelet Morphology Normal Anisocytosis 1+ Ovalocytes Occasional Kerline Cells Occasional Sodium Level 142 MMOL/L (136-145) Potassium Level 3.5 MMOL/L (3.5-5.1) Chloride Level 112 MMOL/L (98-107) H Carbon Dioxide Level 18 MMOL/L (21-32) L Anion Gap 12 mmol/L (5-15) Blood Urea Nitrogen 12 mg/dL (7-18) Creatinine 1.3 MG/DL (0.55-1.30) Estimat Glomerular Filtration Rate mL/min (>60) Glucose Level 92 MG/DL (74-106) Calcium Level 8.6 MG/DL (8.5-10.1) Microbiology Date/Time Source Procedure Growth Status 03/29/17 03:50 Stool Stool Culture Pending Resulted 03/29/17 03:50 Stool Clostridium difficile Toxin Assay - Final Resulted Objective General Appearance: WD/WN, no apparent distress, alert EENT: PERRL/EOMI, normal ENT inspection Neck: non-tender, normal alignment, supple Cardiovascular: normal peripheral pulses, normal rate, regular rhythm, no gallop/murmur, no JVD Respiratory/Chest: chest wall non-tender, lungs clear, normal breath sounds, no respiratory distress, no accessory muscle use, respiratory distress Abdomen: hyperactive bowel sounds, hypoactive bowel sounds, distended, guarding , rebound, tender Extremities: normal range of motion 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 difficile colitis Assessment & Plan: See GI note. Cont oral vanco (3) Clostridium difficile diarrhea (4) Amyloidosis Assessment & Plan: GI. See GI note. (5) Multiple myeloma (6) HTN (hypertension) Assessment & Plan: Cont norvasc (7) Anemia (8) BPH (benign prostatic hyperplasia) Assessment & Plan: Cont proscar and flomax (9) CAD (coronary artery disease) (10) Diarrhea Assessment & Plan: Await stool studies. Cont oral vanco for C.Diff per ID Status: ELLY Leahy Mar 31, 2017 17:24
--- NOTE | 2017-03-31 19:15 | Pulmonology Progress Note ---
Assessment/Plan Problems: (1) C. difficile colitis (2) Abdominal pain (3) CAD (coronary artery disease) (4) Diarrhea Assessment/Plan improving continue abx check electrolytess iv fluid all notes and meds reviewed Subjective ROS Limited/Unobtainable: No Constitutional: Reports: no symptoms Gastrointestinal/Abdominal: Reports: diarrhea Allergies: Coded Allergies: No Known Allergies (Unverified , 04/23/13) Objective Last 24 Hour Vital Signs Date Time Temp Pulse Resp B/P (MAP) Pulse Ox O2 Delivery O2 Flow Rate FiO2 03/31/17 16:07 97.9 66 18 107/60 100 Room Air 03/31/17 11:51 97.2 63 17 136/63 99 Room Air 03/31/17 09:57 69 156/70 03/31/17 09:57 69 156/70 03/31/17 08:00 97.7 69 18 144/71 99 Room Air 03/31/17 04:00 97.8 96 18 112/60 100 Room Air 03/30/17 23:58 97.8 70 18 121/61 100 Room Air 03/30/17 20:38 74 118/63 03/30/17 20:00 97.9 74 18 118/63 100 Room Air General Appearance: WD/WN HEENT: normocephalic, atraumatic Respiratory/Chest: chest wall non-tender, lungs clear Abdomen: normal bowel sounds, soft, non tender Genitourinary: normal external genitalia Skin: no rash 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 normal Microbiology Date/Time Source Procedure Growth Status 03/29/17 03:50 Stool Stool Culture Pending Resulted 03/29/17 03:50 Stool Clostridium difficile Toxin Assay - Final Resulted Laboratory Tests 03/31/17 02:40: Stool Cyclospora Smear [Pending], Cryptosporidium Exam (LAB) [Pending], Giardia Antigen [Pending], Isospora Exam [Pending], Microsporidia Identification [ Pending] 03/31/17 05:00: White Blood Count 8.2, Red Blood Count 3.27L, Hemoglobin 10.9L, Hematocrit 32.4L , Mean Corpuscular Volume 99, Mean Corpuscular Hemoglobin 33.4H, Mean Corpuscular Hemoglobin Concent 33.8, Red Cell Distribution Width 15.7H, Platelet Count 79L, Mean Platelet Volume 9.7, Neutrophils (%) (Auto) , Lymphocytes (%) (Auto) , Monocytes (%) (Auto) , Eosinophils (%) (Auto) , Basophils (%) (Auto) , Differential Total Cells Counted 100, Neutrophils % ( Manual) 83H, Lymphocytes % (Manual) 9L, Monocytes % (Manual) 8, Eosinophils % ( Manual) 0, Basophils % (Manual) 0, Band Neutrophils 0, Platelet Estimate DecreasedL, Platelet Morphology Normal, Anisocytosis 1+, Ovalocytes Occasional, [place] Cells Occasional, Sodium Level 142, Potassium Level 3.5, Chloride Level 112H, Carbon Dioxide Level 18L, Anion Gap 12, Blood Urea Nitrogen 12, Creatinine 1.3, Estimat Glomerular Filtration Rate , Glucose Level 92, Calcium Level 8.6 Current Medications Medications (Trade) Dose Ordered Sig/Antionette Route PRN Reason Start Time Stop Time Status Last Admin Dose Admin Acetaminophen (Tylenol) 650 mg Q4H PRN ORAL fever 03/28/17 13:15 04/27/17 13:14 Al Hydroxide/Mg Hydroxide (Mylanta II) 30 ml Q6H PRN ORAL dyspepsia 03/28/17 13:15 04/27/17 13:14 Allopurinol (Allopurinol) 300 mg DAILY ORAL 03/29/17 09:00 04/28/17 08:59 03/31/17 09:51 Amlodipine Besylate (Norvasc) 5 mg DAILY ORAL 03/29/17 09:00 04/28/17 08:59 03/31/17 09:57 Aspirin (Ecotrin) 81 mg DAILY ORAL 03/29/17 09:00 04/28/17 08:59 03/31/17 09:52 Atorvastatin Calcium (Lipitor) 20 mg BEDTIME ORAL 03/28/17 21:00 04/27/17 20:59 03/30/17 20:38 Clonidine HCl (Catapres) 0.1 mg Q8H PRN ORAL sbp>170 03/28/17 13:15 04/27/17 13:14 Dextrose (Dextrose 50%) STAT PRN IV Hypoglycemia 03/28/17 13:15 04/27/17 13:14 Diphenhydramine HCl (Benadryl) 25 mg Q6H PRN ORAL Itching/Pruritis 03/28/17 13:15 04/27/17 13:14 Diphenoxylate HCl/ Atropine (Lomotil) 2.5 mg Q4H PRN ORAL Diarrhea 03/31/17 11:00 04/30/17 10:59 Dronabinol (Marinol) 5 mg BID ORAL 03/28/17 18:00 04/27/17 17:59 03/31/17 18:19 Finasteride (Proscar) 5 mg DAILY ORAL 03/29/17 09:00 04/28/17 08:59 03/31/17 09:52 Lorazepam (Ativan 2mg/ml 1ml) 1 mg Q4H PRN IV agitation 03/28/17 13:15 04/04/17 13:14 Metoclopramide HCl (Reglan) 10 mg Q6H PRN IVP severe nausea 03/28/17 13:15 04/27/17 13:14 Metoprolol Tartrate (Lopressor) 25 mg Q12HR ORAL 03/28/17 21:00 04/27/17 20:59 03/31/17 09:57 Morphine Sulfate (Morphine 10mg/ 5ml Oral Soln) 6 mg Q4H PRN ORAL Severe Pain (Pain Scale 7-10) 03/31/17 16:15 04/07/17 16:14 Nitroglycerin (Ntg) 0.4 mg Q5M X 3 DOSES PRN SL Prn Chest Pain 03/28/17 13:15 04/27/17 13:14 Nortriptyline HCl (Pamelor) 25 mg QHS ORAL 03/28/17 21:00 04/27/17 20:59 03/30/17 20:38 Ondansetron HCl (Zofran) 4 mg Q6H PRN IVP Nausea & Vomiting 03/28/17 13:15 04/27/17 13:14 Pantoprazole (Protonix) 40 mg DAILY IV 03/29/17 09:00 04/28/17 08:59 03/31/17 09:50 Polyethylene Glycol (Miralax) 17 gm HSPRN PRN ORAL Constipation 03/28/17 13:15 04/27/17 13:14 Pregabalin (Lyrica) 75 mg BIDPRN PRN ORAL nerve pain 03/28/17 13:15 04/27/17 13:14 Promethazine HCl (Phenergan) 25 mg Q8H PRN IV refractory nausea 03/28/17 13:15 04/27/17 13:14 Tamsulosin HCl (Flomax) 0.4 mg BID ORAL 03/28/17 18:00 04/27/17 17:59 03/31/17 18:19 Temazepam (Restoril) 15 mg HSPRN PRN ORAL Insomnia 03/28/17 13:15 04/04/17 13:14 Vancomycin HCl (Vancomycin) 125 mg FOUR TIMES A DAY ORAL 03/29/17 13:00 04/12/17 12:59 03/31/17 18:19 GOLDEN LIM Mar 31, 2017 19:15
[2017-03-31 20:16] VITALS: BP 124/70
[2017-03-31] MEDS: Atorvastatin 20mg tab ORAL SCH (21:31)
[2017-03-31] MEDS: Nortriptyline 25mg cap ORAL SCH (21:32)
[2017-04-01 00:25] VITALS: BP 126/63
[2017-04-01 04:00] VITALS: BP 139/58
[2017-04-01 07:39] LABS: BASOPHILS % (AUTO) 0.8 % (0.0-2.0); EOSINOPHILS % (AUTO) 1.5 % (0.0-3.0); HEMOGLOBIN 11.5 G/DL (14.2-18.0); LYMPHOCYTES % (AUTO) 13.4 % (20.0-45.0); MEAN CORPUSCULAR VOLUME 99 FL (80-99); MONOCYTES % (AUTO) 10.7 % (1.0-10.0); NEUTROPHILS % (AUTO) 73.7 % (45.0-75.0); PLATELET COUNT 113 K/UL (150-450); RED BLOOD COUNT 3.44 M/UL (4.70-6.10); RED CELL DISTRIBUTION WIDTH 15.6 % (11.6-14.8); WHITE BLOOD COUNT 7.7 K/UL (4.8-10.8)
[2017-04-01 07:58] LABS: ANION GAP 13 mmol/L (5-15); BLOOD UREA NITROGEN 13 mg/dL (7-18); CALCIUM 8.9 MG/DL (8.5-10.1); CARBON DIOXIDE 18 MMOL/L (21-32); CHLORIDE 113 MMOL/L (98-107); CREATININE 1.4 MG/DL (0.55-1.30); POTASSIUM 3.6 MMOL/L (3.5-5.1); SODIUM 144 MMOL/L (136-145)
[2017-04-01 08:00] VITALS: BP 133/78
[2017-04-01] MEDS: Dronabinol 2.5mg Cap ORAL SCH ×2 (08:51→18:13)
[2017-04-01] MEDS: Tamsulosin 0.4mg cap ORAL SCH ×2 (08:51→18:12)
[2017-04-01] MEDS: Aspirin EC 81mg tab ORAL SCH (08:51)
[2017-04-01] MEDS: Metoprolol 25mg tab ORAL SCH ×2 (08:51→20:40)
[2017-04-01] MEDS: Pantoprazole Inj IV SCH (08:52)
[2017-04-01] MEDS: Vancomycin oral 125mg/2.5ml ORAL SCH ×4 (08:58→20:35)
--- NOTE | 2017-04-01 09:29 | Pulmonology Progress Note ---
Assessment/Plan Assessment/Plan ASSESSMENT C dif colitis diarrhea due to C dif infection diarrhea chemotherapy induced abdominal pain multiple myeloma, on chemo amyloidosis hz of prostate Ca, s/p surgery dehydration anemia thrombocytopenia HTN CAD with hx of CABG PLAN OF CARE [facility] floor IVF stool C dif +; po Vanco ID follows r/o other pathology given immunocompromised status CT A/P negative stool cx negative monitor renal parameters, lytes replace as needed abdominal US no gallstones, no dilated ducts, no hydro, LFT bili OK previous GI w/up in 2016 c/w amyloidosis GI follows low residue low fat diet, monitor tolerance Lomotil prn a/emetic as needed pain management GI prophylaxis BP management with CCB continue ASA, statin monitor counts, likely chemotherapy related, transfuse prn improving dc plan as epr PMD case discussed and evaluated by supervising physician Subjective Allergies: Coded Allergies: No Known Allergies (Unverified , 04/23/13) Subjective afebrile, no leukocytosis still diarrhea , decreasing somewhat Objective Last 24 Hour Vital Signs Date Time Temp Pulse Resp B/P (MAP) Pulse Ox O2 Delivery O2 Flow Rate FiO2 04/01/17 08:51 71 133/78 04/01/17 08:51 71 133/78 04/01/17 08:00 97.5 71 18 133/78 99 Room Air 04/01/17 04:00 97.7 64 16 139/58 100 Room Air 04/01/17 00:25 97.7 61 19 126/63 100 Room Air 03/31/17 21:32 65 124/70 03/31/17 20:16 97.7 65 18 124/70 99 Room Air 03/31/17 16:07 97.9 66 18 107/60 100 Room Air 03/31/17 11:51 97.2 63 17 136/63 99 Room Air 03/31/17 09:57 69 156/70 03/31/17 09:57 69 156/70 General Appearance: no acute distress HEENT: normocephalic, atraumatic, anicteric, mucous membranes moist Respiratory/Chest: lungs clear Cardiovascular: normal rate, regular rhythm, no JVD Abdomen: normal bowel sounds, soft, non tender, non distended Genitourinary: normal external genitalia Extremities: no edema Neurologic/Psychiatric: alert, responsive, normal mood/affect Musculoskeletal: normal muscle bulk Laboratory Tests 04/01/17 05:50: White Blood Count 7.7, Red Blood Count 3.44L, Hemoglobin 11.5L, Hematocrit 34.0L , Mean Corpuscular Volume 99, Mean Corpuscular Hemoglobin 33.4H, Mean Corpuscular Hemoglobin Concent 33.8, Red Cell Distribution Width 15.6H, Platelet Count 113L, Mean Platelet Volume 9.6, Neutrophils (%) (Auto) 73.7, Lymphocytes (%) (Auto) 13.4L, Monocytes (%) (Auto) 10.7H, Eosinophils (%) (Auto ) 1.5, Basophils (%) (Auto) 0.8, Sodium Level 144, Potassium Level 3.6, Chloride Level 113H, Carbon Dioxide Level 18L, Anion Gap 13, Blood Urea Nitrogen 13, Creatinine 1.4H, Estimat Glomerular Filtration Rate , Glucose Level 92, Calcium Level 8.9, Phosphorus Level 3.0, Magnesium Level 1.6L Current Medications Medications (Trade) Dose Ordered Sig/Antionette Route PRN Reason Start Time Stop Time Status Last Admin Dose Admin Acetaminophen (Tylenol) 650 mg Q4H PRN ORAL fever 03/28/17 13:15 04/27/17 13:14 Al Hydroxide/Mg Hydroxide (Mylanta II) 30 ml Q6H PRN ORAL dyspepsia 03/28/17 13:15 04/27/17 13:14 Allopurinol (Allopurinol) 300 mg DAILY ORAL 03/29/17 09:00 04/28/17 08:59 04/01/17 08:51 Amlodipine Besylate (Norvasc) 5 mg DAILY ORAL 03/29/17 09:00 04/28/17 08:59 04/01/17 08:51 Aspirin (Ecotrin) 81 mg DAILY ORAL 03/29/17 09:00 04/28/17 08:59 04/01/17 08:51 Atorvastatin Calcium (Lipitor) 20 mg BEDTIME ORAL 03/28/17 21:00 04/27/17 20:59 03/31/17 21:31 Clonidine HCl (Catapres) 0.1 mg Q8H PRN ORAL sbp>170 03/28/17 13:15 04/27/17 13:14 Dextrose (Dextrose 50%) STAT PRN IV Hypoglycemia 03/28/17 13:15 04/27/17 13:14 Diphenhydramine HCl (Benadryl) 25 mg Q6H PRN ORAL Itching/Pruritis 03/28/17 13:15 04/27/17 13:14 Diphenoxylate HCl/ Atropine (Lomotil) 2.5 mg Q4H PRN ORAL Diarrhea 03/31/17 11:00 04/30/17 10:59 Dronabinol (Marinol) 5 mg BID ORAL 03/28/17 18:00 04/27/17 17:59 04/01/17 08:51 Finasteride (Proscar) 5 mg DAILY ORAL 03/29/17 09:00 04/28/17 08:59 04/01/17 08:51 Lorazepam (Ativan 2mg/ml 1ml) 1 mg Q4H PRN IV agitation 03/28/17 13:15 04/04/17 13:14 Magnesium Sulfate 100 ml @ 100 mls/hr Q1H IVPB 04/01/17 09:15 04/01/17 11:14 UNV Metoclopramide HCl (Reglan) 10 mg Q6H PRN IVP severe nausea 03/28/17 13:15 04/27/17 13:14 Metoprolol Tartrate (Lopressor) 25 mg Q12HR ORAL 03/28/17 21:00 04/27/17 20:59 04/01/17 08:51 Morphine Sulfate (Morphine 10mg/ 5ml Oral Soln) 6 mg Q4H PRN ORAL Severe Pain (Pain Scale 7-10) 03/31/17 16:15 04/07/17 16:14 Nitroglycerin (Ntg) 0.4 mg Q5M X 3 DOSES PRN SL Prn Chest Pain 03/28/17 13:15 04/27/17 13:14 Nortriptyline HCl (Pamelor) 25 mg QHS ORAL 03/28/17 21:00 04/27/17 20:59 03/31/17 21:32 Ondansetron HCl (Zofran) 4 mg Q6H PRN IVP Nausea & Vomiting 03/28/17 13:15 04/27/17 13:14 Pantoprazole (Protonix) 40 mg DAILY IV 03/29/17 09:00 04/28/17 08:59 04/01/17 08:52 Polyethylene Glycol (Miralax) 17 gm HSPRN PRN ORAL Constipation 03/28/17 13:15 04/27/17 13:14 Pregabalin (Lyrica) 75 mg BIDPRN PRN ORAL nerve pain 03/28/17 13:15 04/27/17 13:14 Promethazine HCl (Phenergan) 25 mg Q8H PRN IV refractory nausea 03/28/17 13:15 04/27/17 13:14 Tamsulosin HCl (Flomax) 0.4 mg BID ORAL 03/28/17 18:00 04/27/17 17:59 04/01/17 08:51 Temazepam (Restoril) 15 mg HSPRN PRN ORAL Insomnia 03/28/17 13:15 04/04/17 13:14 Vancomycin HCl (Vancomycin) 125 mg FOUR TIMES A DAY ORAL 03/29/17 13:00 04/12/17 12:59 04/01/17 08:58 Justyn (Diana)Aileen NP Apr 01, 2017 09:29
--- NOTE | 2017-04-01 09:51 | Infectious Diseases Prog Note ---
Assessment/Plan Assessment/Plan Abx: PO Vancomycin 03/29- Assesment: Diarrhea- 2ry to Cdiff colitis- r/o other pathogens given immunocompromised state -CT abd/p: No definite acute process. Small sliding-type hiatal hernia, also previously described. Cardiomegaly. 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, right hip degenerative change, degenerative spondylosis, prostatomegaly with prior TURP, inferior vena cava filter -stool cx p -Cdiff + toxin A/B Immunocompromised state Multiple myeloma on chemotherapy tx for the last 3 years GI tract amyloidosis hx of appendicitis c/w perforation s/p exp lap and subsequent development of intraabdominal abscess May 2015 HTN, hx Prostate CA s/p TURP, CAD s/p CABG Plan: -Continue PO Vancomycin 125mg bid #09/17 -f/u Giardia, cryptosporidium, cyclospora/isospora, microposridium on stool -if not improvement on above regimen, must need to consider CMV disease -f/u cx -Monitor CBC/BMP, temperatures Thank you for this consultation. Will continue to follow along with you. Discussed with RN. Subjective Allergies: Coded Allergies: No Known Allergies (Unverified , 04/23/13) Subjective afebrile VSS no leukocytosis Bcx NTD Objective Vital Signs Last 24 Hour Vital Signs Date Time Temp Pulse Resp B/P (MAP) Pulse Ox O2 Delivery O2 Flow Rate FiO2 04/01/17 08:51 71 133/78 04/01/17 08:51 71 133/78 04/01/17 08:00 97.5 71 18 133/78 99 Room Air 04/01/17 04:00 97.7 64 16 139/58 100 Room Air 04/01/17 00:25 97.7 61 19 126/63 100 Room Air 03/31/17 21:32 65 124/70 03/31/17 20:16 97.7 65 18 124/70 99 Room Air 03/31/17 16:07 97.9 66 18 107/60 100 Room Air 03/31/17 11:51 97.2 63 17 136/63 99 Room Air 03/31/17 09:57 69 156/70 03/31/17 09:57 69 156/70 Height (Feet): 6 Height (Inches): 1.00 Weight (Pounds): 199 Objective GENERAL: The patient is a well-developed and well-nourished male, in no apparent distress. HEENT: Eyes, pupils equal and responsive to light and accommodation.Extraocular movements are intact. NECK: Supple without lymphadenopathy. CHEST: Lungs are clear to auscultation bilaterally without wheezes orrales. CARDIOVASCULAR: Regular rhythm and rate. S1 and S2 normal without murmurs, rubs, or gallops. ABDOMEN: Soft, diffusely tender with positive bowel sounds. No evidence of rebound noted. EXTREMITIES: Negative for clubbing, cyanosis, or edema. NEUROLOGIC: AAO x3, no focal deficits Laboratory Tests Test 04/01/17 05:50 White Blood Count 7.7 K/UL (4.8-10.8) Red Blood Count 3.44 M/UL (4.70-6.10) L Hemoglobin 11.5 G/DL (14.2-18.0) L Hematocrit 34.0 % (42.0-52.0) L Mean Corpuscular Volume 99 FL (80-99) Mean Corpuscular Hemoglobin 33.4 PG (27.0-31.0) H Mean Corpuscular Hemoglobin Concent 33.8 G/DL (32.0-36.0) Red Cell Distribution Width 15.6 % (11.6-14.8) H Platelet Count 113 K/UL (150-450) L Mean Platelet Volume 9.6 FL (6.5-10.1) Neutrophils (%) (Auto) 73.7 % (45.0-75.0) Lymphocytes (%) (Auto) 13.4 % (20.0-45.0) L Monocytes (%) (Auto) 10.7 % (1.0-10.0) H Eosinophils (%) (Auto) 1.5 % (0.0-3.0) Basophils (%) (Auto) 0.8 % (0.0-2.0) Sodium Level 144 MMOL/L (136-145) Potassium Level 3.6 MMOL/L (3.5-5.1) Chloride Level 113 MMOL/L (98-107) H Carbon Dioxide Level 18 MMOL/L (21-32) L Anion Gap 13 mmol/L (5-15) Blood Urea Nitrogen 13 mg/dL (7-18) Creatinine 1.4 MG/DL (0.55-1.30) H Estimat Glomerular Filtration Rate mL/min (>60) Glucose Level 92 MG/DL (74-106) Calcium Level 8.9 MG/DL (8.5-10.1) Phosphorus Level 3.0 MG/DL (2.5-4.9) Magnesium Level 1.6 MG/DL (1.8-2.4) L Current Medications Medications (Trade) Dose Ordered Sig/Antionette Route PRN Reason Start Time Stop Time Status Last Admin Dose Admin Acetaminophen (Tylenol) 650 mg Q4H PRN ORAL fever 03/28/17 13:15 04/27/17 13:14 Al Hydroxide/Mg Hydroxide (Mylanta II) 30 ml Q6H PRN ORAL dyspepsia 03/28/17 13:15 04/27/17 13:14 Allopurinol (Allopurinol) 300 mg DAILY ORAL 03/29/17 09:00 04/28/17 08:59 04/01/17 08:51 Amlodipine Besylate (Norvasc) 5 mg DAILY ORAL 03/29/17 09:00 04/28/17 08:59 04/01/17 08:51 Aspirin (Ecotrin) 81 mg DAILY ORAL 03/29/17 09:00 04/28/17 08:59 04/01/17 08:51 Atorvastatin Calcium (Lipitor) 20 mg BEDTIME ORAL 03/28/17 21:00 04/27/17 20:59 03/31/17 21:31 Clonidine HCl (Catapres) 0.1 mg Q8H PRN ORAL sbp>170 03/28/17 13:15 04/27/17 13:14 Dextrose (Dextrose 50%) STAT PRN IV Hypoglycemia 03/28/17 13:15 04/27/17 13:14 Diphenhydramine HCl (Benadryl) 25 mg Q6H PRN ORAL Itching/Pruritis 03/28/17 13:15 04/27/17 13:14 Diphenoxylate HCl/ Atropine (Lomotil) 2.5 mg Q4H PRN ORAL Diarrhea 03/31/17 11:00 04/30/17 10:59 Dronabinol (Marinol) 5 mg BID ORAL 03/28/17 18:00 04/27/17 17:59 04/01/17 08:51 Finasteride (Proscar) 5 mg DAILY ORAL 03/29/17 09:00 04/28/17 08:59 04/01/17 08:51 Lorazepam (Ativan 2mg/ml 1ml) 1 mg Q4H PRN IV agitation 03/28/17 13:15 04/04/17 13:14 Magnesium Sulfate 100 ml @ 100 mls/hr Q1H IVPB 04/01/17 09:15 04/01/17 11:14 UNV Metoclopramide HCl (Reglan) 10 mg Q6H PRN IVP severe nausea 03/28/17 13:15 04/27/17 13:14 Metoprolol Tartrate (Lopressor) 25 mg Q12HR ORAL 03/28/17 21:00 04/27/17 20:59 04/01/17 08:51 Morphine Sulfate (Morphine 10mg/ 5ml Oral Soln) 6 mg Q4H PRN ORAL Severe Pain (Pain Scale 7-10) 03/31/17 16:15 04/07/17 16:14 Nitroglycerin (Ntg) 0.4 mg Q5M X 3 DOSES PRN SL Prn Chest Pain 03/28/17 13:15 04/27/17 13:14 Nortriptyline HCl (Pamelor) 25 mg QHS ORAL 03/28/17 21:00 04/27/17 20:59 03/31/17 21:32 Ondansetron HCl (Zofran) 4 mg Q6H PRN IVP Nausea & Vomiting 03/28/17 13:15 04/27/17 13:14 Pantoprazole (Protonix) 40 mg DAILY IV 03/29/17 09:00 04/28/17 08:59 04/01/17 08:52 Polyethylene Glycol (Miralax) 17 gm HSPRN PRN ORAL Constipation 03/28/17 13:15 04/27/17 13:14 Pregabalin (Lyrica) 75 mg BIDPRN PRN ORAL nerve pain 03/28/17 13:15 04/27/17 13:14 Promethazine HCl (Phenergan) 25 mg Q8H PRN IV refractory nausea 03/28/17 13:15 04/27/17 13:14 Tamsulosin HCl (Flomax) 0.4 mg BID ORAL 03/28/17 18:00 04/27/17 17:59 04/01/17 08:51 Temazepam (Restoril) 15 mg HSPRN PRN ORAL Insomnia 03/28/17 13:15 04/04/17 13:14 Vancomycin HCl (Vancomycin) 125 mg FOUR TIMES A DAY ORAL 03/29/17 13:00 04/12/17 12:59 04/01/17 08:58 Yaima Nguyễn M.D. Apr 01, 2017 09:51
--- NOTE | 2017-04-01 10:26 | GI Progress Note ---
Assessment/Plan Problems: (1) Clostridium difficile diarrhea ICD Codes: A04.72 - Enterocolitis due to Clostridium difficile, not specified as recurrent SNOMED: 8572349879062 (2) Anemia ICD Codes: D64.9 - Anemia, unspecified SNOMED: 052677994 (3) C. difficile colitis ICD Codes: A04.7 - Enterocolitis due to Clostridium difficile SNOMED: 332434515 (4) Diarrhea ICD Codes: R19.7 - Diarrhea SNOMED: 36183724 (5) Myeloma ICD Codes: C90.00 - Multiple myeloma not having achieved remission SNOMED: 367733366 (6) Amyloidosis ICD Codes: E85.9 - Amyloidosis, unspecified SNOMED: 08939440 (7) Chemotherapy-induced diarrhea ICD Codes: K52.1 - Toxic gastroenteritis and colitis; T45.1X5A - Adverse effect of antineoplastic and immunosuppressive drugs, initial encounter SNOMED: 152368734, 969365802 Status: stable Status Narrative Discussed with Dr. Flores. Assessment/Plan s/p EGD/colonoscopy 2015 >> amyloidosis CT AP reviewed >> unremarkable cdiff positive >> vanco stool culture normal folate/B12 WNL will consider stool fat if patient has persistent diarrhea - lomotil prn after samples collected monitor H&H, prn transfusions low residual/fiber diet / lactose free diet >> tolerating IV hydration + electrolyte replacement H2B fu labs, Vit D Subjective Subjective abdominal pain resolved recurrent diarrhea abdominal tenderness Objective Last 24 Hour Vital Signs Date Time Temp Pulse Resp B/P (MAP) Pulse Ox O2 Delivery O2 Flow Rate FiO2 04/01/17 08:51 71 133/78 04/01/17 08:51 71 133/78 04/01/17 08:00 97.5 71 18 133/78 99 Room Air 04/01/17 04:00 97.7 64 16 139/58 100 Room Air 04/01/17 00:25 97.7 61 19 126/63 100 Room Air 03/31/17 21:32 65 124/70 03/31/17 20:16 97.7 65 18 124/70 99 Room Air 03/31/17 16:07 97.9 66 18 107/60 100 Room Air 03/31/17 11:51 97.2 63 17 136/63 99 Room Air Laboratory Tests Test 04/01/17 05:50 White Blood Count 7.7 K/UL (4.8-10.8) Red Blood Count 3.44 M/UL (4.70-6.10) L Hemoglobin 11.5 G/DL (14.2-18.0) L Hematocrit 34.0 % (42.0-52.0) L Mean Corpuscular Volume 99 FL (80-99) Mean Corpuscular Hemoglobin 33.4 PG (27.0-31.0) H Mean Corpuscular Hemoglobin Concent 33.8 G/DL (32.0-36.0) Red Cell Distribution Width 15.6 % (11.6-14.8) H Platelet Count 113 K/UL (150-450) L Mean Platelet Volume 9.6 FL (6.5-10.1) Neutrophils (%) (Auto) 73.7 % (45.0-75.0) Lymphocytes (%) (Auto) 13.4 % (20.0-45.0) L Monocytes (%) (Auto) 10.7 % (1.0-10.0) H Eosinophils (%) (Auto) 1.5 % (0.0-3.0) Basophils (%) (Auto) 0.8 % (0.0-2.0) Sodium Level 144 MMOL/L (136-145) Potassium Level 3.6 MMOL/L (3.5-5.1) Chloride Level 113 MMOL/L (98-107) H Carbon Dioxide Level 18 MMOL/L (21-32) L Anion Gap 13 mmol/L (5-15) Blood Urea Nitrogen 13 mg/dL (7-18) Creatinine 1.4 MG/DL (0.55-1.30) H Estimat Glomerular Filtration Rate mL/min (>60) Glucose Level 92 MG/DL (74-106) Calcium Level 8.9 MG/DL (8.5-10.1) Phosphorus Level 3.0 MG/DL (2.5-4.9) Magnesium Level 1.6 MG/DL (1.8-2.4) L Height (Feet): 6 Height (Inches): 1.00 Weight (Pounds): 199 General Appearance: WD/WN, no apparent distress, alert Cardiovascular: normal rate Respiratory/Chest: normal breath sounds, no respiratory distress Abdominal Exam: normal bowel sounds, non tender, soft Extremities: normal range of motion Domenica Chanel N.P. Apr 01, 2017 10:26
--- NOTE | 2017-04-01 10:26 | GI Progress Note ---
Assessment/Plan Problems: (1) Clostridium difficile diarrhea ICD Codes: A04.72 - Enterocolitis due to Clostridium difficile, not specified as recurrent SNOMED: 1433017018848 (2) Anemia ICD Codes: D64.9 - Anemia, unspecified SNOMED: 258978907 (3) C. difficile colitis ICD Codes: A04.7 - Enterocolitis due to Clostridium difficile SNOMED: 590707159 (4) Diarrhea ICD Codes: R19.7 - Diarrhea SNOMED: 17205957 (5) Myeloma ICD Codes: C90.00 - Multiple myeloma not having achieved remission SNOMED: 707247571 (6) Amyloidosis ICD Codes: E85.9 - Amyloidosis, unspecified SNOMED: 14196024 (7) Chemotherapy-induced diarrhea ICD Codes: K52.1 - Toxic gastroenteritis and colitis; T45.1X5A - Adverse effect of antineoplastic and immunosuppressive drugs, initial encounter SNOMED: 174922997, 488629220 Status: stable Status Narrative Discussed with Dr. Flores. Assessment/Plan s/p EGD/colonoscopy 2015 >> amyloidosis CT AP reviewed >> unremarkable cdiff positive >> vanco stool culture normal folate/B12 WNL will consider stool fat if patient has persistent diarrhea - lomotil prn after samples collected monitor H&H, prn transfusions low residual/fiber diet / lactose free diet >> tolerating IV hydration + electrolyte replacement H2B fu labs, Vit D Subjective Subjective abdominal pain resolved recurrent diarrhea abdominal tenderness Objective Last 24 Hour Vital Signs Date Time Temp Pulse Resp B/P (MAP) Pulse Ox O2 Delivery O2 Flow Rate FiO2 04/01/17 08:51 71 133/78 04/01/17 08:51 71 133/78 04/01/17 08:00 97.5 71 18 133/78 99 Room Air 04/01/17 04:00 97.7 64 16 139/58 100 Room Air 04/01/17 00:25 97.7 61 19 126/63 100 Room Air 03/31/17 21:32 65 124/70 03/31/17 20:16 97.7 65 18 124/70 99 Room Air 03/31/17 16:07 97.9 66 18 107/60 100 Room Air 03/31/17 11:51 97.2 63 17 136/63 99 Room Air Laboratory Tests Test 04/01/17 05:50 White Blood Count 7.7 K/UL (4.8-10.8) Red Blood Count 3.44 M/UL (4.70-6.10) L Hemoglobin 11.5 G/DL (14.2-18.0) L Hematocrit 34.0 % (42.0-52.0) L Mean Corpuscular Volume 99 FL (80-99) Mean Corpuscular Hemoglobin 33.4 PG (27.0-31.0) H Mean Corpuscular Hemoglobin Concent 33.8 G/DL (32.0-36.0) Red Cell Distribution Width 15.6 % (11.6-14.8) H Platelet Count 113 K/UL (150-450) L Mean Platelet Volume 9.6 FL (6.5-10.1) Neutrophils (%) (Auto) 73.7 % (45.0-75.0) Lymphocytes (%) (Auto) 13.4 % (20.0-45.0) L Monocytes (%) (Auto) 10.7 % (1.0-10.0) H Eosinophils (%) (Auto) 1.5 % (0.0-3.0) Basophils (%) (Auto) 0.8 % (0.0-2.0) Sodium Level 144 MMOL/L (136-145) Potassium Level 3.6 MMOL/L (3.5-5.1) Chloride Level 113 MMOL/L (98-107) H Carbon Dioxide Level 18 MMOL/L (21-32) L Anion Gap 13 mmol/L (5-15) Blood Urea Nitrogen 13 mg/dL (7-18) Creatinine 1.4 MG/DL (0.55-1.30) H Estimat Glomerular Filtration Rate mL/min (>60) Glucose Level 92 MG/DL (74-106) Calcium Level 8.9 MG/DL (8.5-10.1) Phosphorus Level 3.0 MG/DL (2.5-4.9) Magnesium Level 1.6 MG/DL (1.8-2.4) L Height (Feet): 6 Height (Inches): 1.00 Weight (Pounds): 199 General Appearance: WD/WN, no apparent distress, alert Cardiovascular: normal rate Respiratory/Chest: normal breath sounds, no respiratory distress Abdominal Exam: normal bowel sounds, non tender, soft Extremities: normal range of motion Domenica Chanel N.P. Apr 01, 2017 10:26
--- NOTE | 2017-04-01 10:26 | GI Progress Note ---
Assessment/Plan Problems: (1) Clostridium difficile diarrhea ICD Codes: A04.72 - Enterocolitis due to Clostridium difficile, not specified as recurrent SNOMED: 4744289625629 (2) Anemia ICD Codes: D64.9 - Anemia, unspecified SNOMED: 664156720 (3) C. difficile colitis ICD Codes: A04.7 - Enterocolitis due to Clostridium difficile SNOMED: 277804494 (4) Diarrhea ICD Codes: R19.7 - Diarrhea SNOMED: 55725146 (5) Myeloma ICD Codes: C90.00 - Multiple myeloma not having achieved remission SNOMED: 773956951 (6) Amyloidosis ICD Codes: E85.9 - Amyloidosis, unspecified SNOMED: 26116683 (7) Chemotherapy-induced diarrhea ICD Codes: K52.1 - Toxic gastroenteritis and colitis; T45.1X5A - Adverse effect of antineoplastic and immunosuppressive drugs, initial encounter SNOMED: 162555219, 404287980 Status: stable Status Narrative Discussed with Dr. Flores. Assessment/Plan s/p EGD/colonoscopy 2015 >> amyloidosis CT AP reviewed >> unremarkable cdiff positive >> vanco stool culture normal folate/B12 WNL will consider stool fat if patient has persistent diarrhea - lomotil prn after samples collected monitor H&H, prn transfusions low residual/fiber diet / lactose free diet >> tolerating IV hydration + electrolyte replacement H2B fu labs, Vit D Subjective Subjective abdominal pain resolved recurrent diarrhea abdominal tenderness Objective Last 24 Hour Vital Signs Date Time Temp Pulse Resp B/P (MAP) Pulse Ox O2 Delivery O2 Flow Rate FiO2 04/01/17 08:51 71 133/78 04/01/17 08:51 71 133/78 04/01/17 08:00 97.5 71 18 133/78 99 Room Air 04/01/17 04:00 97.7 64 16 139/58 100 Room Air 04/01/17 00:25 97.7 61 19 126/63 100 Room Air 03/31/17 21:32 65 124/70 03/31/17 20:16 97.7 65 18 124/70 99 Room Air 03/31/17 16:07 97.9 66 18 107/60 100 Room Air 03/31/17 11:51 97.2 63 17 136/63 99 Room Air Laboratory Tests Test 04/01/17 05:50 White Blood Count 7.7 K/UL (4.8-10.8) Red Blood Count 3.44 M/UL (4.70-6.10) L Hemoglobin 11.5 G/DL (14.2-18.0) L Hematocrit 34.0 % (42.0-52.0) L Mean Corpuscular Volume 99 FL (80-99) Mean Corpuscular Hemoglobin 33.4 PG (27.0-31.0) H Mean Corpuscular Hemoglobin Concent 33.8 G/DL (32.0-36.0) Red Cell Distribution Width 15.6 % (11.6-14.8) H Platelet Count 113 K/UL (150-450) L Mean Platelet Volume 9.6 FL (6.5-10.1) Neutrophils (%) (Auto) 73.7 % (45.0-75.0) Lymphocytes (%) (Auto) 13.4 % (20.0-45.0) L Monocytes (%) (Auto) 10.7 % (1.0-10.0) H Eosinophils (%) (Auto) 1.5 % (0.0-3.0) Basophils (%) (Auto) 0.8 % (0.0-2.0) Sodium Level 144 MMOL/L (136-145) Potassium Level 3.6 MMOL/L (3.5-5.1) Chloride Level 113 MMOL/L (98-107) H Carbon Dioxide Level 18 MMOL/L (21-32) L Anion Gap 13 mmol/L (5-15) Blood Urea Nitrogen 13 mg/dL (7-18) Creatinine 1.4 MG/DL (0.55-1.30) H Estimat Glomerular Filtration Rate mL/min (>60) Glucose Level 92 MG/DL (74-106) Calcium Level 8.9 MG/DL (8.5-10.1) Phosphorus Level 3.0 MG/DL (2.5-4.9) Magnesium Level 1.6 MG/DL (1.8-2.4) L Height (Feet): 6 Height (Inches): 1.00 Weight (Pounds): 199 General Appearance: WD/WN, no apparent distress, alert Cardiovascular: normal rate Respiratory/Chest: normal breath sounds, no respiratory distress Abdominal Exam: normal bowel sounds, non tender, soft Extremities: normal range of motion Domenica Chanel N.P. Apr 01, 2017 10:26
[2017-04-01 12:00] VITALS: BP 120/66
[2017-04-01] MEDS: Magnesium Oxide 400mg tab ORAL SCH ×2 (12:56→18:12)
[2017-04-01] MEDS: Lomotil 2.5mg tab ORAL PRN (12:56)
[2017-04-01 16:00] VITALS: BP 148/64
--- NOTE | 2017-04-01 18:19 | Internal Med Progress Note ---
Subjective Date of Service: Apr 01, 2017 Physician Name Mando Schilling Attending Physician Jovani Villagomez MD Current Medications Medications (Trade) Dose Ordered Sig/Antionette Route PRN Reason Start Time Stop Time Status Last Admin Dose Admin Acetaminophen (Tylenol) 650 mg Q4H PRN ORAL fever 03/28/17 13:15 04/27/17 13:14 Al Hydroxide/Mg Hydroxide (Mylanta II) 30 ml Q6H PRN ORAL dyspepsia 03/28/17 13:15 04/27/17 13:14 Allopurinol (Allopurinol) 300 mg DAILY ORAL 03/29/17 09:00 04/28/17 08:59 04/01/17 08:51 Amlodipine Besylate (Norvasc) 5 mg DAILY ORAL 03/29/17 09:00 04/28/17 08:59 04/01/17 08:51 Aspirin (Ecotrin) 81 mg DAILY ORAL 03/29/17 09:00 04/28/17 08:59 04/01/17 08:51 Atorvastatin Calcium (Lipitor) 20 mg BEDTIME ORAL 03/28/17 21:00 04/27/17 20:59 03/31/17 21:31 Clonidine HCl (Catapres) 0.1 mg Q8H PRN ORAL sbp>170 03/28/17 13:15 04/27/17 13:14 Dextrose (Dextrose 50%) STAT PRN IV Hypoglycemia 03/28/17 13:15 04/27/17 13:14 Diphenhydramine HCl (Benadryl) 25 mg Q6H PRN ORAL Itching/Pruritis 03/28/17 13:15 04/27/17 13:14 Diphenoxylate HCl/ Atropine (Lomotil) 2.5 mg Q4H PRN ORAL Diarrhea 03/31/17 11:00 04/30/17 10:59 04/01/17 12:56 Dronabinol (Marinol) 5 mg BID ORAL 03/28/17 18:00 04/27/17 17:59 04/01/17 18:13 Finasteride (Proscar) 5 mg DAILY ORAL 03/29/17 09:00 04/28/17 08:59 04/01/17 08:51 Lorazepam (Ativan 2mg/ml 1ml) 1 mg Q4H PRN IV agitation 03/28/17 13:15 04/04/17 13:14 Magnesium Oxide (Mag-Ox 400mg) 400 mg THREE TIMES A DAY ORAL 04/01/17 13:00 05/01/17 12:59 04/01/17 18:12 Metoclopramide HCl (Reglan) 10 mg Q6H PRN IVP severe nausea 03/28/17 13:15 04/27/17 13:14 Metoprolol Tartrate (Lopressor) 25 mg Q12HR ORAL 03/28/17 21:00 04/27/17 20:59 04/01/17 08:51 Morphine Sulfate (Morphine 10mg/ 5ml Oral Soln) 6 mg Q4H PRN ORAL Severe Pain (Pain Scale 7-10) 03/31/17 16:15 04/07/17 16:14 Nitroglycerin (Ntg) 0.4 mg Q5M X 3 DOSES PRN SL Prn Chest Pain 03/28/17 13:15 04/27/17 13:14 Nortriptyline HCl (Pamelor) 25 mg QHS ORAL 03/28/17 21:00 04/27/17 20:59 03/31/17 21:32 Ondansetron HCl (Zofran) 4 mg Q6H PRN IVP Nausea & Vomiting 03/28/17 13:15 04/27/17 13:14 Pantoprazole (Protonix) 40 mg DAILY IV 03/29/17 09:00 04/28/17 08:59 04/01/17 08:52 Polyethylene Glycol (Miralax) 17 gm HSPRN PRN ORAL Constipation 03/28/17 13:15 04/27/17 13:14 Pregabalin (Lyrica) 75 mg BIDPRN PRN ORAL nerve pain 03/28/17 13:15 04/27/17 13:14 Promethazine HCl (Phenergan) 25 mg Q8H PRN IV refractory nausea 03/28/17 13:15 04/27/17 13:14 Tamsulosin HCl (Flomax) 0.4 mg BID ORAL 03/28/17 18:00 04/27/17 17:59 04/01/17 18:12 Temazepam (Restoril) 15 mg HSPRN PRN ORAL Insomnia 03/28/17 13:15 04/04/17 13:14 Vancomycin HCl (Vancomycin) 125 mg FOUR TIMES A DAY ORAL 03/29/17 13:00 04/12/17 12:59 04/01/17 18:12 Allergies: Coded Allergies: No Known Allergies (Unverified , 04/23/13) ROS Limited/Unobtainable: No Constitutional: Reports: no symptoms HEENT: Reports: no symptoms Cardiovascular: Reports: no symptoms Respiratory: Reports: no symptoms Gastrointestinal/Abdominal: Reports: abdominal pain, diarrhea Genitourinary: Reports: no symptoms Neurologic/Psychiatric: Reports: no symptoms Subjective 76 YO M admitted with abdominal pain and diarrhea. Now C. Diff Colitis. Cover for Int Med - Dr Villagomez Objective Last Vital Signs Date Time Temp Pulse Resp B/P (MAP) Pulse Ox O2 Delivery O2 Flow Rate FiO2 04/01/17 16:00 97.9 68 18 148/64 100 Room Air Laboratory Tests Test 04/01/17 05:50 White Blood Count 7.7 K/UL (4.8-10.8) Red Blood Count 3.44 M/UL (4.70-6.10) L Hemoglobin 11.5 G/DL (14.2-18.0) L Hematocrit 34.0 % (42.0-52.0) L Mean Corpuscular Volume 99 FL (80-99) Mean Corpuscular Hemoglobin 33.4 PG (27.0-31.0) H Mean Corpuscular Hemoglobin Concent 33.8 G/DL (32.0-36.0) Red Cell Distribution Width 15.6 % (11.6-14.8) H Platelet Count 113 K/UL (150-450) L Mean Platelet Volume 9.6 FL (6.5-10.1) Neutrophils (%) (Auto) 73.7 % (45.0-75.0) Lymphocytes (%) (Auto) 13.4 % (20.0-45.0) L Monocytes (%) (Auto) 10.7 % (1.0-10.0) H Eosinophils (%) (Auto) 1.5 % (0.0-3.0) Basophils (%) (Auto) 0.8 % (0.0-2.0) Sodium Level 144 MMOL/L (136-145) Potassium Level 3.6 MMOL/L (3.5-5.1) Chloride Level 113 MMOL/L (98-107) H Carbon Dioxide Level 18 MMOL/L (21-32) L Anion Gap 13 mmol/L (5-15) Blood Urea Nitrogen 13 mg/dL (7-18) Creatinine 1.4 MG/DL (0.55-1.30) H Estimat Glomerular Filtration Rate mL/min (>60) Glucose Level 92 MG/DL (74-106) Calcium Level 8.9 MG/DL (8.5-10.1) Phosphorus Level 3.0 MG/DL (2.5-4.9) Magnesium Level 1.6 MG/DL (1.8-2.4) L Intake and Output 04/01/17 04/02/17 19:00 07:00 Intake Total 750 ml Balance 750 ml Intake Oral 750 ml # Voids 3 # Bowel Movements 5 Objective General Appearance: WD/WN, no apparent distress, alert EENT: PERRL/EOMI, normal ENT inspection Neck: non-tender, normal alignment, supple Cardiovascular: normal peripheral pulses, normal rate, regular rhythm, no gallop/murmur, no JVD Respiratory/Chest: chest wall non-tender, lungs clear, normal breath sounds, no respiratory distress, no accessory muscle use, respiratory distress Abdomen: hyperactive bowel sounds, hypoactive bowel sounds, distended, guarding , rebound, tender Extremities: normal range of motion 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 difficile colitis Assessment & Plan: See GI note. Cont oral vanco (3) Clostridium difficile diarrhea (4) Amyloidosis Assessment & Plan: GI. See GI note. (5) Multiple myeloma (6) HTN (hypertension) Assessment & Plan: Cont norvasc (7) Anemia (8) BPH (benign prostatic hyperplasia) Assessment & Plan: Cont proscar and flomax (9) CAD (coronary artery disease) (10) Diarrhea Assessment & Plan: Await stool studies. Cont oral vanco for C.Diff per ID Status: MANDO Leahy Apr 01, 2017 18:18
[2017-04-01 20:00] VITALS: BP 125/70
[2017-04-01] MEDS: Atorvastatin 20mg tab ORAL SCH (20:34)
[2017-04-01] MEDS: Nortriptyline 25mg cap ORAL SCH (20:34)
[2017-04-02] VITALS: BP 115/58
[2017-04-02 08:00] VITALS: BP 129/72
--- NOTE | 2017-04-02 08:17 | General Progress Note ---
Assessment/Plan Problem List: (1) HTN (hypertension) ICD Codes: I10 - Essential (primary) hypertension SNOMED: 27630802 (2) Anemia ICD Codes: D64.9 - Anemia, unspecified SNOMED: 158171726 (3) Abdominal pain ICD Codes: R10.9 - Abdominal pain SNOMED: 45564329 (4) BPH (benign prostatic hyperplasia) ICD Codes: N40.0 - BPH (benign prostatic hyperplasia) SNOMED: 705136890 (5) C. difficile colitis ICD Codes: A04.7 - Enterocolitis due to Clostridium difficile SNOMED: 549242313 (6) Amyloidosis ICD Codes: E85.9 - Amyloidosis, unspecified SNOMED: 88108265 Assessment/Plan s/p EGD/colonoscopy 2015 >> amyloidosis CT AP reviewed >> unremarkable cdiff positive >> vanco stool culture normal folate/B12 WNL monitor H&H, prn transfusions low residual/fiber diet / lactose free diet >> tolerating IV hydration + electrolyte replacement H2B fu labs, Vit D Subjective ROS Limited/Unobtainable: Yes Allergies: Coded Allergies: No Known Allergies (Unverified , 04/23/13) Subjective no event over night Objective Last 24 Hour Vital Signs Date Time Temp Pulse Resp B/P (MAP) Pulse Ox O2 Delivery O2 Flow Rate FiO2 04/02/17 00:00 97.3 63 20 115/58 100 Room Air 04/01/17 20:40 70 125/70 04/01/17 20:00 97.2 70 21 125/70 100 Room Air 04/01/17 16:00 97.9 68 18 148/64 100 Room Air 04/01/17 12:00 97.7 67 18 120/66 99 Room Air 04/01/17 08:51 71 133/78 04/01/17 08:51 71 133/78 Height (Feet): 6 Height (Inches): 1.00 Weight (Pounds): 199 General Appearance: no apparent distress EENT: normal ENT inspection Neck: supple Cardiovascular: normal rate Respiratory/Chest: decreased breath sounds Abdomen: normal bowel sounds, non tender, soft Extremities: non-tender KATHY WATSON Apr 02, 2017 08:17
--- NOTE | 2017-04-02 08:17 | General Progress Note ---
Assessment/Plan Problem List: (1) HTN (hypertension) ICD Codes: I10 - Essential (primary) hypertension SNOMED: 36656931 (2) Anemia ICD Codes: D64.9 - Anemia, unspecified SNOMED: 561467227 (3) Abdominal pain ICD Codes: R10.9 - Abdominal pain SNOMED: 91320270 (4) BPH (benign prostatic hyperplasia) ICD Codes: N40.0 - BPH (benign prostatic hyperplasia) SNOMED: 257243678 (5) C. difficile colitis ICD Codes: A04.7 - Enterocolitis due to Clostridium difficile SNOMED: 098366163 (6) Amyloidosis ICD Codes: E85.9 - Amyloidosis, unspecified SNOMED: 51530780 Assessment/Plan s/p EGD/colonoscopy 2015 >> amyloidosis CT AP reviewed >> unremarkable cdiff positive >> vanco stool culture normal folate/B12 WNL monitor H&H, prn transfusions low residual/fiber diet / lactose free diet >> tolerating IV hydration + electrolyte replacement H2B fu labs, Vit D Subjective ROS Limited/Unobtainable: Yes Allergies: Coded Allergies: No Known Allergies (Unverified , 04/23/13) Subjective no event over night Objective Last 24 Hour Vital Signs Date Time Temp Pulse Resp B/P (MAP) Pulse Ox O2 Delivery O2 Flow Rate FiO2 04/02/17 00:00 97.3 63 20 115/58 100 Room Air 04/01/17 20:40 70 125/70 04/01/17 20:00 97.2 70 21 125/70 100 Room Air 04/01/17 16:00 97.9 68 18 148/64 100 Room Air 04/01/17 12:00 97.7 67 18 120/66 99 Room Air 04/01/17 08:51 71 133/78 04/01/17 08:51 71 133/78 Height (Feet): 6 Height (Inches): 1.00 Weight (Pounds): 199 General Appearance: no apparent distress EENT: normal ENT inspection Neck: supple Cardiovascular: normal rate Respiratory/Chest: decreased breath sounds Abdomen: normal bowel sounds, non tender, soft Extremities: non-tender KATHY WATSON Apr 02, 2017 08:17
--- NOTE | 2017-04-02 08:17 | General Progress Note ---
Assessment/Plan Problem List: (1) HTN (hypertension) ICD Codes: I10 - Essential (primary) hypertension SNOMED: 23930937 (2) Anemia ICD Codes: D64.9 - Anemia, unspecified SNOMED: 038900096 (3) Abdominal pain ICD Codes: R10.9 - Abdominal pain SNOMED: 58688701 (4) BPH (benign prostatic hyperplasia) ICD Codes: N40.0 - BPH (benign prostatic hyperplasia) SNOMED: 436532247 (5) C. difficile colitis ICD Codes: A04.7 - Enterocolitis due to Clostridium difficile SNOMED: 758592810 (6) Amyloidosis ICD Codes: E85.9 - Amyloidosis, unspecified SNOMED: 71626902 Assessment/Plan s/p EGD/colonoscopy 2015 >> amyloidosis CT AP reviewed >> unremarkable cdiff positive >> vanco stool culture normal folate/B12 WNL monitor H&H, prn transfusions low residual/fiber diet / lactose free diet >> tolerating IV hydration + electrolyte replacement H2B fu labs, Vit D Subjective ROS Limited/Unobtainable: Yes Allergies: Coded Allergies: No Known Allergies (Unverified , 04/23/13) Subjective no event over night Objective Last 24 Hour Vital Signs Date Time Temp Pulse Resp B/P (MAP) Pulse Ox O2 Delivery O2 Flow Rate FiO2 04/02/17 00:00 97.3 63 20 115/58 100 Room Air 04/01/17 20:40 70 125/70 04/01/17 20:00 97.2 70 21 125/70 100 Room Air 04/01/17 16:00 97.9 68 18 148/64 100 Room Air 04/01/17 12:00 97.7 67 18 120/66 99 Room Air 04/01/17 08:51 71 133/78 04/01/17 08:51 71 133/78 Height (Feet): 6 Height (Inches): 1.00 Weight (Pounds): 199 General Appearance: no apparent distress EENT: normal ENT inspection Neck: supple Cardiovascular: normal rate Respiratory/Chest: decreased breath sounds Abdomen: normal bowel sounds, non tender, soft Extremities: non-tender KATHY WATSON Apr 02, 2017 08:17
[2017-04-02] MEDS: Tamsulosin 0.4mg cap ORAL SCH ×2 (08:42→17:20)
[2017-04-02] MEDS: Metoprolol 25mg tab ORAL SCH ×2 (08:42→20:42)
[2017-04-02] MEDS: Aspirin EC 81mg tab ORAL SCH (08:42)
[2017-04-02] MEDS: Dronabinol 2.5mg Cap ORAL SCH ×2 (08:42→17:20)
[2017-04-02] MEDS: Magnesium Oxide 400mg tab ORAL SCH ×3 (08:42→17:20)
[2017-04-02] MEDS: Pantoprazole Inj IV SCH (08:42)
[2017-04-02] MEDS: Vancomycin oral 125mg/2.5ml ORAL SCH ×4 (08:43→20:42)
[2017-04-02 08:45] LABS: BASOPHILS % (AUTO) 0.8 % (0.0-2.0); EOSINOPHILS % (AUTO) 2.2 % (0.0-3.0); HEMATOCRIT 33.7 % (42.0-52.0); HEMOGLOBIN 11.3 G/DL (14.2-18.0); LYMPHOCYTES % (AUTO) 14.3 % (20.0-45.0); MEAN CORPUSCULAR VOLUME 100 FL (80-99); MONOCYTES % (AUTO) 11.3 % (1.0-10.0); NEUTROPHILS % (AUTO) 71.4 % (45.0-75.0); PLATELET COUNT 123 K/UL (150-450); RED BLOOD COUNT 3.37 M/UL (4.70-6.10); RED CELL DISTRIBUTION WIDTH 15.4 % (11.6-14.8)
[2017-04-02 08:48] LABS: ANION GAP 13 mmol/L (5-15); BLOOD UREA NITROGEN 15 mg/dL (7-18); CARBON DIOXIDE 20 MMOL/L (21-32); CHLORIDE 112 MMOL/L (98-107); CREATININE 1.5 MG/DL (0.55-1.30); POTASSIUM 3.9 MMOL/L (3.5-5.1); SODIUM 145 MMOL/L (136-145)
--- NOTE | 2017-04-02 10:08 | Infectious Diseases Prog Note ---
Assessment/Plan Assessment/Plan Abx: PO Vancomycin 03/29- Assesment: Diarrhea- 2ry to Cdiff colitis- r/o other pathogens given immunocompromised state -CT abd/p: No definite acute process. Small sliding-type hiatal hernia, also previously described. Cardiomegaly. 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, right hip degenerative change, degenerative spondylosis, prostatomegaly with prior TURP, inferior vena cava filter -stool cx, Giardia ag neg -Cdiff + toxin A/B Immunocompromised state Multiple myeloma on chemotherapy tx for the last 3 years GI tract amyloidosis hx of appendicitis c/w perforation s/p exp lap and subsequent development of intraabdominal abscess May 2015 HTN, hx Prostate CA s/p TURP, CAD s/p CABG Plan: -Continue PO Vancomycin 125mg bid #10/17 -f/u cryptosporidium, cyclospora/isospora, microposridium on stool -if not improvement on above regimen, must need to consider CMV disease -f/u cx -Monitor CBC/BMP, temperatures Thank you for this consultation. Will continue to follow along with you. Discussed with RN. Subjective Allergies: Coded Allergies: No Known Allergies (Unverified , 04/23/13) Subjective afebrile VSS no leukocytosis Bcx NTD Objective Vital Signs Last 24 Hour Vital Signs Date Time Temp Pulse Resp B/P (MAP) Pulse Ox O2 Delivery O2 Flow Rate FiO2 04/02/17 08:43 66 129/68 04/02/17 08:42 66 129/68 04/02/17 08:00 97.5 66 18 129/72 100 Room Air 04/02/17 00:00 97.3 63 20 115/58 100 Room Air 04/01/17 20:40 70 125/70 04/01/17 20:00 97.2 70 21 125/70 100 Room Air 04/01/17 16:00 97.9 68 18 148/64 100 Room Air 04/01/17 12:00 97.7 67 18 120/66 99 Room Air Height (Feet): 6 Height (Inches): 1.00 Weight (Pounds): 199 Objective GENERAL: The patient is a well-developed and well-nourished male, in no apparent distress. HEENT: Eyes, pupils equal and responsive to light and accommodation.Extraocular movements are intact. NECK: Supple without lymphadenopathy. CHEST: Lungs are clear to auscultation bilaterally without wheezes orrales. CARDIOVASCULAR: Regular rhythm and rate. S1 and S2 normal without murmurs, rubs, or gallops. ABDOMEN: Soft, diffusely tender with positive bowel sounds. No evidence of rebound noted. EXTREMITIES: Negative for clubbing, cyanosis, or edema. NEUROLOGIC: AAO x3, no focal deficits reviewed Laboratory Tests Test 04/02/17 05:58 White Blood Count 7.0 K/UL (4.8-10.8) Red Blood Count 3.37 M/UL (4.70-6.10) L Hemoglobin 11.3 G/DL (14.2-18.0) L Hematocrit 33.7 % (42.0-52.0) L Mean Corpuscular Volume 100 FL (80-99) H Mean Corpuscular Hemoglobin 33.4 PG (27.0-31.0) H Mean Corpuscular Hemoglobin Concent 33.5 G/DL (32.0-36.0) Red Cell Distribution Width 15.4 % (11.6-14.8) H Platelet Count 123 K/UL (150-450) L Mean Platelet Volume 8.9 FL (6.5-10.1) Neutrophils (%) (Auto) 71.4 % (45.0-75.0) Lymphocytes (%) (Auto) 14.3 % (20.0-45.0) L Monocytes (%) (Auto) 11.3 % (1.0-10.0) H Eosinophils (%) (Auto) 2.2 % (0.0-3.0) Basophils (%) (Auto) 0.8 % (0.0-2.0) Sodium Level 145 MMOL/L (136-145) Potassium Level 3.9 MMOL/L (3.5-5.1) Chloride Level 112 MMOL/L (98-107) H Carbon Dioxide Level 20 MMOL/L (21-32) L Anion Gap 13 mmol/L (5-15) Blood Urea Nitrogen 15 mg/dL (7-18) Creatinine 1.5 MG/DL (0.55-1.30) H Estimat Glomerular Filtration Rate mL/min (>60) Glucose Level 86 MG/DL (74-106) Calcium Level 9.0 MG/DL (8.5-10.1) Current Medications Medications (Trade) Dose Ordered Sig/Antionette Route PRN Reason Start Time Stop Time Status Last Admin Dose Admin Acetaminophen (Tylenol) 650 mg Q4H PRN ORAL fever 03/28/17 13:15 04/27/17 13:14 Al Hydroxide/Mg Hydroxide (Mylanta II) 30 ml Q6H PRN ORAL dyspepsia 03/28/17 13:15 04/27/17 13:14 Allopurinol (Allopurinol) 300 mg DAILY ORAL 03/29/17 09:00 04/28/17 08:59 04/02/17 08:42 Amlodipine Besylate (Norvasc) 5 mg DAILY ORAL 03/29/17 09:00 04/28/17 08:59 04/02/17 08:43 Aspirin (Ecotrin) 81 mg DAILY ORAL 03/29/17 09:00 04/28/17 08:59 04/02/17 08:42 Atorvastatin Calcium (Lipitor) 20 mg BEDTIME ORAL 03/28/17 21:00 04/27/17 20:59 04/01/17 20:34 Clonidine HCl (Catapres) 0.1 mg Q8H PRN ORAL sbp>170 03/28/17 13:15 04/27/17 13:14 Dextrose (Dextrose 50%) STAT PRN IV Hypoglycemia 03/28/17 13:15 04/27/17 13:14 Diphenhydramine HCl (Benadryl) 25 mg Q6H PRN ORAL Itching/Pruritis 03/28/17 13:15 04/27/17 13:14 Diphenoxylate HCl/ Atropine (Lomotil) 2.5 mg Q4H PRN ORAL Diarrhea 03/31/17 11:00 04/30/17 10:59 04/01/17 12:56 Dronabinol (Marinol) 5 mg BID ORAL 03/28/17 18:00 04/27/17 17:59 04/02/17 08:42 Finasteride (Proscar) 5 mg DAILY ORAL 03/29/17 09:00 04/28/17 08:59 04/02/17 08:43 Lorazepam (Ativan 2mg/ml 1ml) 1 mg Q4H PRN IV agitation 03/28/17 13:15 04/04/17 13:14 Magnesium Oxide (Mag-Ox 400mg) 400 mg THREE TIMES A DAY ORAL 04/01/17 13:00 05/01/17 12:59 04/02/17 08:42 Metoclopramide HCl (Reglan) 10 mg Q6H PRN IVP severe nausea 03/28/17 13:15 04/27/17 13:14 Metoprolol Tartrate (Lopressor) 25 mg Q12HR ORAL 03/28/17 21:00 04/27/17 20:59 04/02/17 08:42 Morphine Sulfate (Morphine 10mg/ 5ml Oral Soln) 6 mg Q4H PRN ORAL Severe Pain (Pain Scale 7-10) 03/31/17 16:15 04/07/17 16:14 Nitroglycerin (Ntg) 0.4 mg Q5M X 3 DOSES PRN SL Prn Chest Pain 03/28/17 13:15 04/27/17 13:14 Nortriptyline HCl (Pamelor) 25 mg QHS ORAL 03/28/17 21:00 04/27/17 20:59 04/01/17 20:34 Ondansetron HCl (Zofran) 4 mg Q6H PRN IVP Nausea & Vomiting 03/28/17 13:15 04/27/17 13:14 Pantoprazole (Protonix) 40 mg DAILY IV 03/29/17 09:00 04/28/17 08:59 04/02/17 08:42 Polyethylene Glycol (Miralax) 17 gm HSPRN PRN ORAL Constipation 03/28/17 13:15 04/27/17 13:14 Pregabalin (Lyrica) 75 mg BIDPRN PRN ORAL nerve pain 03/28/17 13:15 04/27/17 13:14 Promethazine HCl (Phenergan) 25 mg Q8H PRN IV refractory nausea 03/28/17 13:15 04/27/17 13:14 Tamsulosin HCl (Flomax) 0.4 mg BID ORAL 03/28/17 18:00 04/27/17 17:59 04/02/17 08:42 Temazepam (Restoril) 15 mg HSPRN PRN ORAL Insomnia 03/28/17 13:15 04/04/17 13:14 Vancomycin HCl (Vancomycin) 125 mg FOUR TIMES A DAY ORAL 03/29/17 13:00 04/12/17 12:59 04/02/17 08:43 Yaima Nguyễn M.D. Apr 02, 2017 10:08
[2017-04-02 12:00] VITALS: BP 136/70
--- NOTE | 2017-04-02 13:16 | Pulmonology Progress Note ---
Assessment/Plan Problems: (1) C. difficile colitis (2) Abdominal pain (3) CAD (coronary artery disease) (4) Diarrhea Assessment/Plan less diarrhea improving continue abx check electrolytess iv fluid all notes and meds reviewed Subjective ROS Limited/Unobtainable: No Constitutional: Reports: no symptoms HEENT: Repors: no symptoms Respiratory: Reports: no symptoms Allergies: Coded Allergies: No Known Allergies (Unverified , 04/23/13) Objective Last 24 Hour Vital Signs Date Time Temp Pulse Resp B/P (MAP) Pulse Ox O2 Delivery O2 Flow Rate FiO2 04/02/17 12:00 97.9 70 17 136/70 100 Room Air 04/02/17 08:43 66 129/68 04/02/17 08:42 66 129/68 04/02/17 08:00 97.5 66 18 129/72 100 Room Air 04/02/17 00:00 97.3 63 20 115/58 100 Room Air 04/01/17 20:40 70 125/70 04/01/17 20:00 97.2 70 21 125/70 100 Room Air 04/01/17 16:00 97.9 68 18 148/64 100 Room Air General Appearance: cachetic HEENT: normocephalic, atraumatic Respiratory/Chest: chest wall non-tender, lungs clear Cardiovascular: normal peripheral pulses, normal rate, regular rhythm Abdomen: normal bowel sounds, soft, non tender Genitourinary: normal external genitalia Skin: no lesions 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5H, Estimat Glomerular Filtration Rate , Glucose Level 86, Calcium Level 9.0 Current Medications Medications (Trade) Dose Ordered Sig/Antionette Route PRN Reason Start Time Stop Time Status Last Admin Dose Admin Acetaminophen (Tylenol) 650 mg Q4H PRN ORAL fever 03/28/17 13:15 04/27/17 13:14 Al Hydroxide/Mg Hydroxide (Mylanta II) 30 ml Q6H PRN ORAL dyspepsia 03/28/17 13:15 04/27/17 13:14 Allopurinol (Allopurinol) 300 mg DAILY ORAL 03/29/17 09:00 04/28/17 08:59 04/02/17 08:42 Amlodipine Besylate (Norvasc) 5 mg DAILY ORAL 03/29/17 09:00 04/28/17 08:59 04/02/17 08:43 Aspirin (Ecotrin) 81 mg DAILY ORAL 03/29/17 09:00 04/28/17 08:59 04/02/17 08:42 Atorvastatin Calcium (Lipitor) 20 mg BEDTIME ORAL 03/28/17 21:00 04/27/17 20:59 04/01/17 20:34 Clonidine HCl (Catapres) 0.1 mg Q8H PRN ORAL sbp>170 03/28/17 13:15 04/27/17 13:14 Dextrose (Dextrose 50%) STAT PRN IV Hypoglycemia 03/28/17 13:15 04/27/17 13:14 Diphenhydramine HCl (Benadryl) 25 mg Q6H PRN ORAL Itching/Pruritis 03/28/17 13:15 04/27/17 13:14 Diphenoxylate HCl/ Atropine (Lomotil) 2.5 mg Q4H PRN ORAL Diarrhea 03/31/17 11:00 04/30/17 10:59 04/01/17 12:56 Dronabinol (Marinol) 5 mg BID ORAL 03/28/17 18:00 04/27/17 17:59 04/02/17 08:42 Finasteride (Proscar) 5 mg DAILY ORAL 03/29/17 09:00 04/28/17 08:59 04/02/17 08:43 Lorazepam (Ativan 2mg/ml 1ml) 1 mg Q4H PRN IV agitation 03/28/17 13:15 04/04/17 13:14 Magnesium Oxide (Mag-Ox 400mg) 400 mg THREE TIMES A DAY ORAL 04/01/17 13:00 05/01/17 12:59 04/02/17 12:30 Metoclopramide HCl (Reglan) 10 mg Q6H PRN IVP severe nausea 03/28/17 13:15 04/27/17 13:14 Metoprolol Tartrate (Lopressor) 25 mg Q12HR ORAL 03/28/17 21:00 04/27/17 20:59 04/02/17 08:42 Morphine Sulfate (Morphine 10mg/ 5ml Oral Soln) 6 mg Q4H PRN ORAL Severe Pain (Pain Scale 7-10) 03/31/17 16:15 04/07/17 16:14 Nitroglycerin (Ntg) 0.4 mg Q5M X 3 DOSES PRN SL Prn Chest Pain 03/28/17 13:15 04/27/17 13:14 Nortriptyline HCl (Pamelor) 25 mg QHS ORAL 03/28/17 21:00 04/27/17 20:59 04/01/17 20:34 Ondansetron HCl (Zofran) 4 mg Q6H PRN IVP Nausea & Vomiting 03/28/17 13:15 04/27/17 13:14 Pantoprazole (Protonix) 40 mg DAILY IV 03/29/17 09:00 04/28/17 08:59 04/02/17 08:42 Polyethylene Glycol (Miralax) 17 gm HSPRN PRN ORAL Constipation 03/28/17 13:15 04/27/17 13:14 Pregabalin (Lyrica) 75 mg BIDPRN PRN ORAL nerve pain 03/28/17 13:15 04/27/17 13:14 Promethazine HCl (Phenergan) 25 mg Q8H PRN IV refractory nausea 03/28/17 13:15 04/27/17 13:14 Tamsulosin HCl (Flomax) 0.4 mg BID ORAL 03/28/17 18:00 04/27/17 17:59 04/02/17 08:42 Temazepam (Restoril) 15 mg HSPRN PRN ORAL Insomnia 03/28/17 13:15 04/04/17 13:14 Vancomycin HCl (Vancomycin) 125 mg FOUR TIMES A DAY ORAL 03/29/17 13:00 04/12/17 12:59 04/02/17 12:30 GOLDEN LIM Apr 02, 2017 13:16
--- NOTE | 2017-04-02 13:52 | Internal Med Progress Note ---
Subjective Date of Service: Apr 02, 2017 Physician Name Mando Elias Attending Physician Jovani Villagomez MD Current Medications Medications (Trade) Dose Ordered Sig/Antionette Route PRN Reason Start Time Stop Time Status Last Admin Dose Admin Acetaminophen (Tylenol) 650 mg Q4H PRN ORAL fever 03/28/17 13:15 04/27/17 13:14 Al Hydroxide/Mg Hydroxide (Mylanta II) 30 ml Q6H PRN ORAL dyspepsia 03/28/17 13:15 04/27/17 13:14 Allopurinol (Allopurinol) 300 mg DAILY ORAL 03/29/17 09:00 04/28/17 08:59 04/02/17 08:42 Amlodipine Besylate (Norvasc) 5 mg DAILY ORAL 03/29/17 09:00 04/28/17 08:59 04/02/17 08:43 Aspirin (Ecotrin) 81 mg DAILY ORAL 03/29/17 09:00 04/28/17 08:59 04/02/17 08:42 Atorvastatin Calcium (Lipitor) 20 mg BEDTIME ORAL 03/28/17 21:00 04/27/17 20:59 04/01/17 20:34 Clonidine HCl (Catapres) 0.1 mg Q8H PRN ORAL sbp>170 03/28/17 13:15 04/27/17 13:14 Dextrose (Dextrose 50%) STAT PRN IV Hypoglycemia 03/28/17 13:15 04/27/17 13:14 Diphenhydramine HCl (Benadryl) 25 mg Q6H PRN ORAL Itching/Pruritis 03/28/17 13:15 04/27/17 13:14 Diphenoxylate HCl/ Atropine (Lomotil) 2.5 mg Q4H PRN ORAL Diarrhea 03/31/17 11:00 04/30/17 10:59 04/01/17 12:56 Dronabinol (Marinol) 5 mg BID ORAL 03/28/17 18:00 04/27/17 17:59 04/02/17 08:42 Finasteride (Proscar) 5 mg DAILY ORAL 03/29/17 09:00 04/28/17 08:59 04/02/17 08:43 Lorazepam (Ativan 2mg/ml 1ml) 1 mg Q4H PRN IV agitation 03/28/17 13:15 04/04/17 13:14 Magnesium Oxide (Mag-Ox 400mg) 400 mg THREE TIMES A DAY ORAL 04/01/17 13:00 05/01/17 12:59 04/02/17 12:30 Metoclopramide HCl (Reglan) 10 mg Q6H PRN IVP severe nausea 03/28/17 13:15 04/27/17 13:14 Metoprolol Tartrate (Lopressor) 25 mg Q12HR ORAL 03/28/17 21:00 04/27/17 20:59 04/02/17 08:42 Morphine Sulfate (Morphine 10mg/ 5ml Oral Soln) 6 mg Q4H PRN ORAL Severe Pain (Pain Scale 7-10) 03/31/17 16:15 04/07/17 16:14 Nitroglycerin (Ntg) 0.4 mg Q5M X 3 DOSES PRN SL Prn Chest Pain 03/28/17 13:15 04/27/17 13:14 Nortriptyline HCl (Pamelor) 25 mg QHS ORAL 03/28/17 21:00 04/27/17 20:59 04/01/17 20:34 Ondansetron HCl (Zofran) 4 mg Q6H PRN IVP Nausea & Vomiting 03/28/17 13:15 04/27/17 13:14 Pantoprazole (Protonix) 40 mg DAILY IV 03/29/17 09:00 04/28/17 08:59 04/02/17 08:42 Polyethylene Glycol (Miralax) 17 gm HSPRN PRN ORAL Constipation 03/28/17 13:15 04/27/17 13:14 Pregabalin (Lyrica) 75 mg BIDPRN PRN ORAL nerve pain 03/28/17 13:15 04/27/17 13:14 Promethazine HCl (Phenergan) 25 mg Q8H PRN IV refractory nausea 03/28/17 13:15 04/27/17 13:14 Tamsulosin HCl (Flomax) 0.4 mg BID ORAL 03/28/17 18:00 04/27/17 17:59 04/02/17 08:42 Temazepam (Restoril) 15 mg HSPRN PRN ORAL Insomnia 03/28/17 13:15 04/04/17 13:14 Vancomycin HCl (Vancomycin) 125 mg FOUR TIMES A DAY ORAL 03/29/17 13:00 04/12/17 12:59 04/02/17 12:30 Allergies: Coded Allergies: No Known Allergies (Unverified , 04/23/13) ROS Limited/Unobtainable: No Constitutional: Reports: no symptoms HEENT: Reports: no symptoms Cardiovascular: Reports: no symptoms Respiratory: Reports: no symptoms Gastrointestinal/Abdominal: Reports: abdominal pain, diarrhea Genitourinary: Reports: no symptoms Neurologic/Psychiatric: Reports: no symptoms Subjective 76 YO M admitted with abdominal pain and diarrhea. Now C. Diff Colitis. Cover for Int Med - Dr Villagomez Objective Last Vital Signs Date Time Temp Pulse Resp B/P (MAP) Pulse Ox O2 Delivery O2 Flow Rate FiO2 04/02/17 12:00 97.9 70 17 136/70 100 Room Air Laboratory Tests Test 04/02/17 05:58 White Blood Count 7.0 K/UL (4.8-10.8) Red Blood Count 3.37 M/UL (4.70-6.10) L Hemoglobin 11.3 G/DL (14.2-18.0) L Hematocrit 33.7 % (42.0-52.0) L Mean Corpuscular Volume 100 FL (80-99) H Mean Corpuscular Hemoglobin 33.4 PG (27.0-31.0) H Mean Corpuscular Hemoglobin Concent 33.5 G/DL (32.0-36.0) Red Cell Distribution Width 15.4 % (11.6-14.8) H Platelet Count 123 K/UL (150-450) L Mean Platelet Volume 8.9 FL (6.5-10.1) Neutrophils (%) (Auto) 71.4 % (45.0-75.0) Lymphocytes (%) (Auto) 14.3 % (20.0-45.0) L Monocytes (%) (Auto) 11.3 % (1.0-10.0) H Eosinophils (%) (Auto) 2.2 % (0.0-3.0) Basophils (%) (Auto) 0.8 % (0.0-2.0) Sodium Level 145 MMOL/L (136-145) Potassium Level 3.9 MMOL/L (3.5-5.1) Chloride Level 112 MMOL/L (98-107) H Carbon Dioxide Level 20 MMOL/L (21-32) L Anion Gap 13 mmol/L (5-15) Blood Urea Nitrogen 15 mg/dL (7-18) Creatinine 1.5 MG/DL (0.55-1.30) H Estimat Glomerular Filtration Rate mL/min (>60) Glucose Level 86 MG/DL (74-106) Calcium Level 9.0 MG/DL (8.5-10.1) Objective General Appearance: WD/WN, no apparent distress, alert EENT: PERRL/EOMI, normal ENT inspection Neck: non-tender, normal alignment, supple Cardiovascular: normal peripheral pulses, normal rate, regular rhythm, no gallop/murmur, no JVD Respiratory/Chest: chest wall non-tender, lungs clear, normal breath sounds, no respiratory distress, no accessory muscle use, respiratory distress Abdomen: hyperactive bowel sounds, hypoactive bowel sounds, distended, guarding , rebound, tender Extremities: normal range of motion 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 difficile colitis Assessment & Plan: See GI note. Cont oral vanco (3) Clostridium difficile diarrhea (4) Amyloidosis Assessment & Plan: GI. See GI note. (5) Multiple myeloma (6) HTN (hypertension) Assessment & Plan: Cont norvasc (7) Anemia (8) BPH (benign prostatic hyperplasia) Assessment & Plan: Cont proscar and flomax (9) CAD (coronary artery disease) (10) Diarrhea Assessment & Plan: Await stool studies. Cont oral vanco for C.Diff per ID Status: not improved MANDO ELIAS Apr 02, 2017 13:52
[2017-04-02 16:00] VITALS: BP 107/61
[2017-04-02] MEDS: Lomotil 2.5mg tab ORAL PRN (17:31)
[2017-04-02 20:00] VITALS: BP 115/57
[2017-04-02] MEDS: Nortriptyline 25mg cap ORAL SCH (20:42)
[2017-04-02] MEDS: Atorvastatin 20mg tab ORAL SCH (20:42)
[2017-04-03] VITALS: BP 117/61
[2017-04-03 04:00] VITALS: BP 115/55
--- NOTE | 2017-04-03 08:01 | General Progress Note ---
Assessment/Plan Problem List: (1) HTN (hypertension) ICD Codes: I10 - Essential (primary) hypertension SNOMED: 74742152 (2) Anemia ICD Codes: D64.9 - Anemia, unspecified SNOMED: 739401697 (3) Abdominal pain ICD Codes: R10.9 - Abdominal pain SNOMED: 03570694 (4) BPH (benign prostatic hyperplasia) ICD Codes: N40.0 - BPH (benign prostatic hyperplasia) SNOMED: 660736830 (5) C. difficile colitis ICD Codes: A04.7 - Enterocolitis due to Clostridium difficile SNOMED: 043075770 (6) Amyloidosis ICD Codes: E85.9 - Amyloidosis, unspecified SNOMED: 65352331 Assessment/Plan s/p EGD/colonoscopy 2016 >> amyloidosis CT AP reviewed >> unremarkable cdiff positive >> vanco stool culture normal folate/B12 WNL monitor H&H, prn transfusions low residual/fiber diet / lactose free diet >> tolerating IV hydration + electrolyte replacement H2B fu labs, Vit D Subjective Allergies: Coded Allergies: No Known Allergies (Unverified , 04/23/13) Subjective no event over night Objective Last 24 Hour Vital Signs Date Time Temp Pulse Resp B/P (MAP) Pulse Ox O2 Delivery O2 Flow Rate FiO2 04/03/17 04:00 97.9 66 18 115/55 99 Room Air 04/03/17 00:00 98.6 70 18 117/61 100 Room Air 04/02/17 20:42 72 115/57 04/02/17 20:00 98.1 72 20 115/57 99 Room Air 04/02/17 16:00 98.2 78 17 107/61 98 Room Air 04/02/17 12:00 97.9 70 17 136/70 100 Room Air 04/02/17 08:43 66 129/68 04/02/17 08:42 66 129/68 04/02/17 08:00 97.5 66 18 129/72 100 Room Air Height (Feet): 6 Height (Inches): 1.00 Weight (Pounds): 199 General Appearance: no apparent distress EENT: normal ENT inspection Neck: supple Cardiovascular: normal rate Respiratory/Chest: decreased breath sounds Abdomen: normal bowel sounds, non tender, soft Extremities: non-tender KATHY WATSON Apr 03, 2017 08:01
--- NOTE | 2017-04-03 08:01 | General Progress Note ---
Assessment/Plan Problem List: (1) HTN (hypertension) ICD Codes: I10 - Essential (primary) hypertension SNOMED: 56648731 (2) Anemia ICD Codes: D64.9 - Anemia, unspecified SNOMED: 179424460 (3) Abdominal pain ICD Codes: R10.9 - Abdominal pain SNOMED: 56334805 (4) BPH (benign prostatic hyperplasia) ICD Codes: N40.0 - BPH (benign prostatic hyperplasia) SNOMED: 766866837 (5) C. difficile colitis ICD Codes: A04.7 - Enterocolitis due to Clostridium difficile SNOMED: 636384552 (6) Amyloidosis ICD Codes: E85.9 - Amyloidosis, unspecified SNOMED: 17227018 Assessment/Plan s/p EGD/colonoscopy 2016 >> amyloidosis CT AP reviewed >> unremarkable cdiff positive >> vanco stool culture normal folate/B12 WNL monitor H&H, prn transfusions low residual/fiber diet / lactose free diet >> tolerating IV hydration + electrolyte replacement H2B fu labs, Vit D Subjective Allergies: Coded Allergies: No Known Allergies (Unverified , 04/23/13) Subjective no event over night Objective Last 24 Hour Vital Signs Date Time Temp Pulse Resp B/P (MAP) Pulse Ox O2 Delivery O2 Flow Rate FiO2 04/03/17 04:00 97.9 66 18 115/55 99 Room Air 04/03/17 00:00 98.6 70 18 117/61 100 Room Air 04/02/17 20:42 72 115/57 04/02/17 20:00 98.1 72 20 115/57 99 Room Air 04/02/17 16:00 98.2 78 17 107/61 98 Room Air 04/02/17 12:00 97.9 70 17 136/70 100 Room Air 04/02/17 08:43 66 129/68 04/02/17 08:42 66 129/68 04/02/17 08:00 97.5 66 18 129/72 100 Room Air Height (Feet): 6 Height (Inches): 1.00 Weight (Pounds): 199 General Appearance: no apparent distress EENT: normal ENT inspection Neck: supple Cardiovascular: normal rate Respiratory/Chest: decreased breath sounds Abdomen: normal bowel sounds, non tender, soft Extremities: non-tender KATHY WATSON Apr 03, 2017 08:01
--- NOTE | 2017-04-03 08:01 | General Progress Note ---
Assessment/Plan Problem List: (1) HTN (hypertension) ICD Codes: I10 - Essential (primary) hypertension SNOMED: 07752403 (2) Anemia ICD Codes: D64.9 - Anemia, unspecified SNOMED: 678064046 (3) Abdominal pain ICD Codes: R10.9 - Abdominal pain SNOMED: 17452555 (4) BPH (benign prostatic hyperplasia) ICD Codes: N40.0 - BPH (benign prostatic hyperplasia) SNOMED: 783203083 (5) C. difficile colitis ICD Codes: A04.7 - Enterocolitis due to Clostridium difficile SNOMED: 429137740 (6) Amyloidosis ICD Codes: E85.9 - Amyloidosis, unspecified SNOMED: 51550566 Assessment/Plan s/p EGD/colonoscopy 2016 >> amyloidosis CT AP reviewed >> unremarkable cdiff positive >> vanco stool culture normal folate/B12 WNL monitor H&H, prn transfusions low residual/fiber diet / lactose free diet >> tolerating IV hydration + electrolyte replacement H2B fu labs, Vit D Subjective Allergies: Coded Allergies: No Known Allergies (Unverified , 04/23/13) Subjective no event over night Objective Last 24 Hour Vital Signs Date Time Temp Pulse Resp B/P (MAP) Pulse Ox O2 Delivery O2 Flow Rate FiO2 04/03/17 04:00 97.9 66 18 115/55 99 Room Air 04/03/17 00:00 98.6 70 18 117/61 100 Room Air 04/02/17 20:42 72 115/57 04/02/17 20:00 98.1 72 20 115/57 99 Room Air 04/02/17 16:00 98.2 78 17 107/61 98 Room Air 04/02/17 12:00 97.9 70 17 136/70 100 Room Air 04/02/17 08:43 66 129/68 04/02/17 08:42 66 129/68 04/02/17 08:00 97.5 66 18 129/72 100 Room Air Height (Feet): 6 Height (Inches): 1.00 Weight (Pounds): 199 General Appearance: no apparent distress EENT: normal ENT inspection Neck: supple Cardiovascular: normal rate Respiratory/Chest: decreased breath sounds Abdomen: normal bowel sounds, non tender, soft Extremities: non-tender KATHY WATSON Apr 03, 2017 08:01
[2017-04-03] MEDS: Aspirin EC 81mg tab ORAL SCH (08:19)
[2017-04-03] MEDS: Tamsulosin 0.4mg cap ORAL SCH ×2 (08:20→17:54)
[2017-04-03] MEDS: Magnesium Oxide 400mg tab ORAL SCH ×3 (08:20→17:54)
[2017-04-03] MEDS: Dronabinol 2.5mg Cap ORAL SCH ×2 (08:20→17:54)
[2017-04-03] MEDS: Vancomycin oral 125mg/2.5ml ORAL SCH ×4 (08:21→20:36)
[2017-04-03] MEDS: Metoprolol 25mg tab ORAL SCH ×2 (08:21→20:36)
[2017-04-03 08:34] VITALS: BP 113/59
[2017-04-03 08:58] LABS: BASOPHILS % (AUTO) 0.9 % (0.0-2.0); EOSINOPHILS % (AUTO) 3.3 % (0.0-3.0); HEMATOCRIT 31.4 % (42.0-52.0); HEMOGLOBIN 10.9 G/DL (14.2-18.0); LYMPHOCYTES % (AUTO) 16.7 % (20.0-45.0); MEAN CORPUSCULAR VOLUME 100 FL (80-99); MONOCYTES % (AUTO) 12.3 % (1.0-10.0); NEUTROPHILS % (AUTO) 66.8 % (45.0-75.0); PLATELET COUNT 125 K/UL (150-450); RED BLOOD COUNT 3.16 M/UL (4.70-6.10); RED CELL DISTRIBUTION WIDTH 15.5 % (11.6-14.8); WHITE BLOOD COUNT 6.1 K/UL (4.8-10.8)
[2017-04-03 09:22] LABS: ALANINE AMINOTRANSFERASE 32 U/L (12-78); ALBUMIN 3.1 G/DL (3.4-5.0); ALBUMIN/GLOBULIN RATIO 1.1 (1.0-2.7); ALKALINE PHOSPHATASE 96 U/L (46-116); ANION GAP 9 mmol/L (5-15); ASPARTATE AMINO TRANSFERASE 25 U/L (15-37); BILIRUBIN,TOTAL 1.2 MG/DL (0.2-1.0); BLOOD UREA NITROGEN 15 mg/dL (7-18); CALCIUM 8.6 MG/DL (8.5-10.1); CARBON DIOXIDE 21 MMOL/L (21-32); CHLORIDE 111 MMOL/L (98-107); CREATININE 1.3 MG/DL (0.55-1.30); PHOSPHORUS 2.6 MG/DL (2.5-4.9); POTASSIUM 3.8 MMOL/L (3.5-5.1); SODIUM 141 MMOL/L (136-145)
[2017-04-03 09:27] LABS: BILIRUBIN,DIRECT 0.2 MG/DL (0.0-0.3)
[2017-04-03] MEDS: Lomotil 2.5mg tab ORAL PRN ×2 (09:42→18:07)
[2017-04-03 11:55] VITALS: BP 116/62
[2017-04-03 15:56] VITALS: BP 120/60
--- NOTE | 2017-04-03 16:22 | Internal Med Progress Note ---
Subjective Date of Service: Apr 03, 2017 Physician Name Mando Schilling Attending Physician Jovani Villagomez MD Current Medications Medications (Trade) Dose Ordered Sig/Antionette Route PRN Reason Start Time Stop Time Status Last Admin Dose Admin Acetaminophen (Tylenol) 650 mg Q4H PRN ORAL fever 03/28/17 13:15 04/27/17 13:14 Al Hydroxide/Mg Hydroxide (Mylanta II) 30 ml Q6H PRN ORAL dyspepsia 03/28/17 13:15 04/27/17 13:14 Allopurinol (Allopurinol) 300 mg DAILY ORAL 03/29/17 09:00 04/28/17 08:59 04/03/17 08:19 Amlodipine Besylate (Norvasc) 5 mg DAILY ORAL 03/29/17 09:00 04/28/17 08:59 04/03/17 08:20 Aspirin (Ecotrin) 81 mg DAILY ORAL 03/29/17 09:00 04/28/17 08:59 04/03/17 08:19 Atorvastatin Calcium (Lipitor) 20 mg BEDTIME ORAL 03/28/17 21:00 04/27/17 20:59 04/02/17 20:42 Clonidine HCl (Catapres) 0.1 mg Q8H PRN ORAL sbp>170 03/28/17 13:15 04/27/17 13:14 Dextrose (Dextrose 50%) STAT PRN IV Hypoglycemia 03/28/17 13:15 04/27/17 13:14 Diphenhydramine HCl (Benadryl) 25 mg Q6H PRN ORAL Itching/Pruritis 03/28/17 13:15 04/27/17 13:14 Diphenoxylate HCl/ Atropine (Lomotil) 2.5 mg Q4H PRN ORAL Diarrhea 03/31/17 11:00 04/30/17 10:59 04/03/17 09:42 Dronabinol (Marinol) 5 mg BID ORAL 03/28/17 18:00 04/27/17 17:59 04/03/17 08:20 Finasteride (Proscar) 5 mg DAILY ORAL 03/29/17 09:00 04/28/17 08:59 04/03/17 08:20 Lorazepam (Ativan 2mg/ml 1ml) 1 mg Q4H PRN IV agitation 03/28/17 13:15 04/04/17 13:14 Magnesium Oxide (Mag-Ox 400mg) 400 mg THREE TIMES A DAY ORAL 04/01/17 13:00 05/01/17 12:59 04/03/17 13:00 Metoclopramide HCl (Reglan) 10 mg Q6H PRN IVP severe nausea 03/28/17 13:15 04/27/17 13:14 Metoprolol Tartrate (Lopressor) 25 mg Q12HR ORAL 03/28/17 21:00 04/27/17 20:59 04/03/17 08:21 Morphine Sulfate (Morphine 10mg/ 5ml Oral Soln) 6 mg Q4H PRN ORAL Severe Pain (Pain Scale 7-10) 03/31/17 16:15 04/07/17 16:14 Nitroglycerin (Ntg) 0.4 mg Q5M X 3 DOSES PRN SL Prn Chest Pain 03/28/17 13:15 04/27/17 13:14 Nortriptyline HCl (Pamelor) 25 mg QHS ORAL 03/28/17 21:00 04/27/17 20:59 04/02/17 20:42 Ondansetron HCl (Zofran) 4 mg Q6H PRN IVP Nausea & Vomiting 03/28/17 13:15 04/27/17 13:14 Pantoprazole (Protonix) 40 mg DAILY ORAL 04/03/17 09:00 05/03/17 08:59 04/03/17 08:20 Polyethylene Glycol (Miralax) 17 gm HSPRN PRN ORAL Constipation 03/28/17 13:15 04/27/17 13:14 Pregabalin (Lyrica) 75 mg BIDPRN PRN ORAL nerve pain 03/28/17 13:15 04/27/17 13:14 Promethazine HCl (Phenergan) 25 mg Q8H PRN IV refractory nausea 03/28/17 13:15 04/27/17 13:14 Tamsulosin HCl (Flomax) 0.4 mg BID ORAL 03/28/17 18:00 04/27/17 17:59 04/03/17 08:20 Temazepam (Restoril) 15 mg HSPRN PRN ORAL Insomnia 03/28/17 13:15 04/04/17 13:14 Vancomycin HCl (Vancomycin) 125 mg FOUR TIMES A DAY ORAL 03/29/17 13:00 04/12/17 12:59 04/03/17 13:00 Allergies: Coded Allergies: No Known Allergies (Unverified , 04/23/13) ROS Limited/Unobtainable: No Constitutional: Reports: no symptoms HEENT: Reports: no symptoms Cardiovascular: Reports: no symptoms Respiratory: Reports: no symptoms Gastrointestinal/Abdominal: Reports: abdomen distended, abdominal pain, diarrhea Genitourinary: Reports: no symptoms Neurologic/Psychiatric: Reports: no symptoms Subjective 76 YO M admitted with abdominal pain and diarrhea. Now C. Diff Colitis. Cover for Int Med - Dr Villagomez Objective Last Vital Signs Date Time Temp Pulse Resp B/P (MAP) Pulse Ox O2 Delivery O2 Flow Rate FiO2 04/03/17 15:56 97.2 63 20 120/60 100 Room Air Laboratory Tests Test 04/03/17 06:20 White Blood Count 6.1 K/UL (4.8-10.8) Red Blood Count 3.16 M/UL (4.70-6.10) L Hemoglobin 10.9 G/DL (14.2-18.0) L Hematocrit 31.4 % (42.0-52.0) L Mean Corpuscular Volume 100 FL (80-99) H Mean Corpuscular Hemoglobin 34.6 PG (27.0-31.0) H Mean Corpuscular Hemoglobin Concent 34.7 G/DL (32.0-36.0) Red Cell Distribution Width 15.5 % (11.6-14.8) H Platelet Count 125 K/UL (150-450) L Mean Platelet Volume 8.0 FL (6.5-10.1) Neutrophils (%) (Auto) 66.8 % (45.0-75.0) Lymphocytes (%) (Auto) 16.7 % (20.0-45.0) L Monocytes (%) (Auto) 12.3 % (1.0-10.0) H Eosinophils (%) (Auto) 3.3 % (0.0-3.0) H Basophils (%) (Auto) 0.9 % (0.0-2.0) Erythrocyte Sedimentation Rate 12 MM/HR (0-20) Sodium Level 141 MMOL/L (136-145) Potassium Level 3.8 MMOL/L (3.5-5.1) Chloride Level 111 MMOL/L (98-107) H Carbon Dioxide Level 21 MMOL/L (21-32) Anion Gap 9 mmol/L (5-15) Blood Urea Nitrogen 15 mg/dL (7-18) Creatinine 1.3 MG/DL (0.55-1.30) Estimat Glomerular Filtration Rate mL/min (>60) Glucose Level 104 MG/DL (74-106) Calcium Level 8.6 MG/DL (8.5-10.1) Phosphorus Level 2.6 MG/DL (2.5-4.9) Magnesium Level 1.7 MG/DL (1.8-2.4) L Total Bilirubin 1.2 MG/DL (0.2-1.0) H Direct Bilirubin 0.2 MG/DL (0.0-0.3) Aspartate Amino Transf (AST/SGOT) 25 U/L (15-37) Alanine Aminotransferase (ALT/SGPT) 32 U/L (12-78) Alkaline Phosphatase 96 U/L (46-116) C-Reactive Protein, Quantitative < 0.0 mg/dL (0.00-0.90) L Total Protein 5.9 G/DL (6.4-8.2) L Albumin 3.1 G/DL (3.4-5.0) L Globulin 2.8 g/dL Albumin/Globulin Ratio 1.1 (1.0-2.7) Intake and Output 04/03/17 04/04/17 19:00 07:00 Intake Total 1010 ml Balance 1010 ml Intake Oral 1010 ml Objective General Appearance: WD/WN, no apparent distress, alert EENT: PERRL/EOMI, normal ENT inspection Neck: non-tender, normal alignment, supple Cardiovascular: normal peripheral pulses, normal rate, regular rhythm, no gallop/murmur, no JVD Respiratory/Chest: chest wall non-tender, lungs clear, normal breath sounds, no respiratory distress, no accessory muscle use, respiratory distress Abdomen: hyperactive bowel sounds, hypoactive bowel sounds, distended, guarding , rebound, tender Extremities: normal range of motion 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 difficile colitis Assessment & Plan: See GI note. Cont oral vanco (3) Clostridium difficile diarrhea (4) Amyloidosis Assessment & Plan: GI. See GI note. (5) Multiple myeloma (6) HTN (hypertension) Assessment & Plan: Cont norvasc (7) Anemia (8) BPH (benign prostatic hyperplasia) Assessment & Plan: Cont proscar and flomax (9) CAD (coronary artery disease) (10) Diarrhea Assessment & Plan: Cont oral vanco for C.Diff per ID Status: MANDO Leahy Apr 03, 2017 16:22
[2017-04-03 20:00] VITALS: BP 115/60
[2017-04-03] MEDS: Atorvastatin 20mg tab ORAL SCH (20:35)
[2017-04-03] MEDS: Nortriptyline 25mg cap ORAL SCH (20:35)
--- NOTE | 2017-04-03 22:21 | Pulmonology Progress Note ---
Assessment/Plan Problems: (1) C. difficile colitis (2) Abdominal pain (3) CAD (coronary artery disease) (4) Diarrhea Assessment/Plan no new complains improving continue abx check electrolytess iv fluid all notes and meds reviewed Subjective ROS Limited/Unobtainable: No Constitutional: Reports: no symptoms HEENT: Repors: no symptoms Allergies: Coded Allergies: No Known Allergies (Unverified , 04/23/13) Objective Last 24 Hour Vital Signs Date Time Temp Pulse Resp B/P (MAP) Pulse Ox O2 Delivery O2 Flow Rate FiO2 04/03/17 20:36 68 115/60 04/03/17 20:00 97.7 68 18 115/60 99 Room Air 04/03/17 15:56 97.2 63 20 120/60 100 Room Air 04/03/17 11:55 98.0 65 20 116/62 100 Room Air 04/03/17 08:34 98.1 67 20 113/59 100 Room Air 04/03/17 08:21 67 113/59 04/03/17 08:20 67 113/59 04/03/17 04:00 97.9 66 18 115/55 99 Room Air 04/03/17 00:00 98.6 70 18 117/61 100 Room Air Intake and Output 04/03/17 04/04/17 19:00 07:00 Intake Total 1010 ml Balance 1010 ml Intake Oral 1010 ml # Voids 2 General Appearance: WD/WN HEENT: normocephalic, atraumatic Respiratory/Chest: chest wall non-tender, lungs clear Cardiovascular: normal peripheral pulses, normal rate Abdomen: normal bowel sounds, soft, non tender Extremities: no cyanosis Skin: no ulcers Neurologic/Psychiatric: no motor/sensory deficits Laboratory Tests 04/03/17 06:20: White Blood Count 6.1, Red Blood Count 3.16L, Hemoglobin 10.9L, Hematocrit 31.4L , Mean Corpuscular Volume 100H, Mean Corpuscular Hemoglobin 34.6H, Mean Corpuscular Hemoglobin Concent 34.7, Red Cell Distribution Width 15.5H, Platelet Count 125L, Mean Platelet Volume 8.0, Neutrophils (%) (Auto) 66.8, Lymphocytes (%) (Auto) 16.7L, Monocytes (%) (Auto) 12.3H, Eosinophils (%) (Auto ) 3.3H, Basophils (%) (Auto) 0.9, Erythrocyte Sedimentation Rate 12, Sodium Level 141, Potassium Level 3.8, Chloride Level 111H, Carbon Dioxide Level 21, Anion Gap 9, Blood Urea Nitrogen 15, Creatinine 1.3, Estimat Glomerular Filtration Rate , Glucose Level 104, Calcium Level 8.6, Phosphorus Level 2.6, Magnesium Level 1.7L, Total Bilirubin 1.2H, Direct Bilirubin 0.2, Aspartate Amino Transf (AST/SGOT) 25, Alanine Aminotransferase (ALT/SGPT) 32, Alkaline Phosphatase 96, C-Reactive Protein, Quantitative < 0.0L, Total Protein 5.9L, Albumin 3.1L, Globulin 2.8, Albumin/Globulin Ratio 1.1 Current Medications Medications (Trade) Dose Ordered Sig/Antionette Route PRN Reason Start Time Stop Time Status Last Admin Dose Admin Acetaminophen (Tylenol) 650 mg Q4H PRN ORAL fever 03/28/17 13:15 04/27/17 13:14 Al Hydroxide/Mg Hydroxide (Mylanta II) 30 ml Q6H PRN ORAL dyspepsia 03/28/17 13:15 04/27/17 13:14 Allopurinol (Allopurinol) 300 mg DAILY ORAL 03/29/17 09:00 04/28/17 08:59 04/03/17 08:19 Amlodipine Besylate (Norvasc) 5 mg DAILY ORAL 03/29/17 09:00 04/28/17 08:59 04/03/17 08:20 Aspirin (Ecotrin) 81 mg DAILY ORAL 03/29/17 09:00 04/28/17 08:59 04/03/17 08:19 Atorvastatin Calcium (Lipitor) 20 mg BEDTIME ORAL 03/28/17 21:00 04/27/17 20:59 04/03/17 20:35 Clonidine HCl (Catapres) 0.1 mg Q8H PRN ORAL sbp>170 03/28/17 13:15 04/27/17 13:14 Dextrose (Dextrose 50%) STAT PRN IV Hypoglycemia 03/28/17 13:15 04/27/17 13:14 Diphenhydramine HCl (Benadryl) 25 mg Q6H PRN ORAL Itching/Pruritis 03/28/17 13:15 04/27/17 13:14 Diphenoxylate HCl/ Atropine (Lomotil) 2.5 mg Q4H PRN ORAL Diarrhea 03/31/17 11:00 04/30/17 10:59 04/03/17 18:07 Dronabinol (Marinol) 5 mg BID ORAL 03/28/17 18:00 04/27/17 17:59 04/03/17 17:54 Finasteride (Proscar) 5 mg DAILY ORAL 03/29/17 09:00 04/28/17 08:59 04/03/17 08:20 Lorazepam (Ativan 2mg/ml 1ml) 1 mg Q4H PRN IV agitation 03/28/17 13:15 04/04/17 13:14 Magnesium Oxide (Mag-Ox 400mg) 400 mg THREE TIMES A DAY ORAL 04/01/17 13:00 05/01/17 12:59 04/03/17 17:54 Metoclopramide HCl (Reglan) 10 mg Q6H PRN IVP severe nausea 03/28/17 13:15 04/27/17 13:14 Metoprolol Tartrate (Lopressor) 25 mg Q12HR ORAL 03/28/17 21:00 04/27/17 20:59 04/03/17 20:36 Morphine Sulfate (Morphine 10mg/ 5ml Oral Soln) 6 mg Q4H PRN ORAL Severe Pain (Pain Scale 7-10) 03/31/17 16:15 04/07/17 16:14 Nitroglycerin (Ntg) 0.4 mg Q5M X 3 DOSES PRN SL Prn Chest Pain 03/28/17 13:15 04/27/17 13:14 Nortriptyline HCl (Pamelor) 25 mg QHS ORAL 03/28/17 21:00 04/27/17 20:59 04/03/17 20:35 Ondansetron HCl (Zofran) 4 mg Q6H PRN IVP Nausea & Vomiting 03/28/17 13:15 04/27/17 13:14 Pantoprazole (Protonix) 40 mg DAILY ORAL 04/03/17 09:00 05/03/17 08:59 04/03/17 08:20 Polyethylene Glycol (Miralax) 17 gm HSPRN PRN ORAL Constipation 03/28/17 13:15 04/27/17 13:14 Pregabalin (Lyrica) 75 mg BIDPRN PRN ORAL nerve pain 03/28/17 13:15 04/27/17 13:14 Promethazine HCl (Phenergan) 25 mg Q8H PRN IV refractory nausea 03/28/17 13:15 04/27/17 13:14 Tamsulosin HCl (Flomax) 0.4 mg BID ORAL 03/28/17 18:00 04/27/17 17:59 04/03/17 17:54 Temazepam (Restoril) 15 mg HSPRN PRN ORAL Insomnia 03/28/17 13:15 04/04/17 13:14 Vancomycin HCl (Vancomycin) 125 mg FOUR TIMES A DAY ORAL 03/29/17 13:00 04/12/17 12:59 04/03/17 20:36 GOLDEN LIM Apr 03, 2017 22:21
[2017-04-04] VITALS: BP 119/65
[2017-04-04 08:00] VITALS: BP 141/67
[2017-04-04 08:27] LABS: BASOPHILS % (AUTO) 0.7 % (0.0-2.0); EOSINOPHILS % (AUTO) 2.6 % (0.0-3.0); HEMATOCRIT 33.7 % (42.0-52.0); HEMOGLOBIN 11.2 G/DL (14.2-18.0); LYMPHOCYTES % (AUTO) 17.1 % (20.0-45.0); MEAN CORPUSCULAR VOLUME 100 FL (80-99); NEUTROPHILS % (AUTO) 66.7 % (45.0-75.0); PLATELET COUNT 146 K/UL (150-450); RED BLOOD COUNT 3.37 M/UL (4.70-6.10); RED CELL DISTRIBUTION WIDTH 15.5 % (11.6-14.8); WHITE BLOOD COUNT 6.2 K/UL (4.8-10.8)
[2017-04-04 08:55] LABS: ANION GAP 10 mmol/L (5-15); BLOOD UREA NITROGEN 15 mg/dL (7-18); CALCIUM 8.9 MG/DL (8.5-10.1); CARBON DIOXIDE 21 MMOL/L (21-32); CHLORIDE 108 MMOL/L (98-107); CREATININE 1.4 MG/DL (0.55-1.30); POTASSIUM 4.1 MMOL/L (3.5-5.1); SODIUM 139 MMOL/L (136-145)
[2017-04-04] MEDS: Magnesium Oxide 400mg tab ORAL SCH ×3 (09:21→17:34)
[2017-04-04] MEDS: Aspirin EC 81mg tab ORAL SCH (09:21)
[2017-04-04] MEDS: Tamsulosin 0.4mg cap ORAL SCH ×2 (09:21→17:34)
[2017-04-04] MEDS: Metoprolol 25mg tab ORAL SCH ×2 (09:21→20:33)
[2017-04-04] MEDS: Dronabinol 2.5mg Cap ORAL SCH ×2 (09:22→17:34)
[2017-04-04] MEDS: Vancomycin oral 125mg/2.5ml ORAL SCH ×4 (09:22→20:33)
[2017-04-04] MEDS: Lomotil 2.5mg tab ORAL PRN ×3 (09:26→17:34)
--- NOTE | 2017-04-04 10:28 | GI Progress Note ---
Assessment/Plan Problems: (1) Clostridium difficile diarrhea ICD Codes: A04.72 - Enterocolitis due to Clostridium difficile, not specified as recurrent SNOMED: 4739800332152 (2) Anemia ICD Codes: D64.9 - Anemia, unspecified SNOMED: 718369011 (3) C. difficile colitis ICD Codes: A04.7 - Enterocolitis due to Clostridium difficile SNOMED: 342957470 (4) Diarrhea ICD Codes: R19.7 - Diarrhea SNOMED: 21761482 (5) Myeloma ICD Codes: C90.00 - Multiple myeloma not having achieved remission SNOMED: 711254090 (6) Amyloidosis ICD Codes: E85.9 - Amyloidosis, unspecified SNOMED: 33689640 (7) Chemotherapy-induced diarrhea ICD Codes: K52.1 - Toxic gastroenteritis and colitis; T45.1X5A - Adverse effect of antineoplastic and immunosuppressive drugs, initial encounter SNOMED: 335636860, 920925048 Status: progressing, unchanged Status Narrative Discussed with Dr. Flores. Assessment/Plan s/p EGD/colonoscopy 2015 >> amyloidosis CT AP reviewed >> unremarkable cdiff positive >> vanco stool culture normal folate/B12 WNL monitor H&H, prn transfusions low residual/fiber diet / lactose free diet >> tolerating IV hydration + electrolyte replacement H2B fu labs, Vit D Subjective Subjective abdominal pain resolved recurrent diarrhea abdominal tenderness Objective Last 24 Hour Vital Signs Date Time Temp Pulse Resp B/P (MAP) Pulse Ox O2 Delivery O2 Flow Rate FiO2 04/04/17 09:21 75 141/67 04/04/17 09:21 75 141/67 04/04/17 08:00 97.9 75 19 141/67 99 Room Air 04/04/17 00:00 97.9 75 20 119/65 97 Room Air 04/03/17 20:36 68 115/60 04/03/17 20:00 97.7 68 18 115/60 99 Room Air 04/03/17 15:56 97.2 63 20 120/60 100 Room Air 04/03/17 11:55 98.0 65 20 116/62 100 Room Air Laboratory Tests Test 04/04/17 06:50 White Blood Count 6.2 K/UL (4.8-10.8) Red Blood Count 3.37 M/UL (4.70-6.10) L Hemoglobin 11.2 G/DL (14.2-18.0) L Hematocrit 33.7 % (42.0-52.0) L Mean Corpuscular Volume 100 FL (80-99) H Mean Corpuscular Hemoglobin 33.3 PG (27.0-31.0) H Mean Corpuscular Hemoglobin Concent 33.2 G/DL (32.0-36.0) Red Cell Distribution Width 15.5 % (11.6-14.8) H Platelet Count 146 K/UL (150-450) L Mean Platelet Volume 7.8 FL (6.5-10.1) Neutrophils (%) (Auto) 66.7 % (45.0-75.0) Lymphocytes (%) (Auto) 17.1 % (20.0-45.0) L Monocytes (%) (Auto) 13.0 % (1.0-10.0) H Eosinophils (%) (Auto) 2.6 % (0.0-3.0) Basophils (%) (Auto) 0.7 % (0.0-2.0) Sodium Level 139 MMOL/L (136-145) Potassium Level 4.1 MMOL/L (3.5-5.1) Chloride Level 108 MMOL/L (98-107) H Carbon Dioxide Level 21 MMOL/L (21-32) Anion Gap 10 mmol/L (5-15) Blood Urea Nitrogen 15 mg/dL (7-18) Creatinine 1.4 MG/DL (0.55-1.30) H Estimat Glomerular Filtration Rate mL/min (>60) Glucose Level 97 MG/DL (74-106) Calcium Level 8.9 MG/DL (8.5-10.1) Height (Feet): 6 Height (Inches): 1.00 Weight (Pounds): 199 General Appearance: WD/WN, no apparent distress, alert Cardiovascular: normal rate Respiratory/Chest: normal breath sounds, no respiratory distress Abdominal Exam: normal bowel sounds, non tender, soft Extremities: normal range of motion, non-tender Domenica Chanel NKirti Apr 04, 2017 10:28
--- NOTE | 2017-04-04 10:28 | GI Progress Note ---
Assessment/Plan Problems: (1) Clostridium difficile diarrhea ICD Codes: A04.72 - Enterocolitis due to Clostridium difficile, not specified as recurrent SNOMED: 0274214611207 (2) Anemia ICD Codes: D64.9 - Anemia, unspecified SNOMED: 616029529 (3) C. difficile colitis ICD Codes: A04.7 - Enterocolitis due to Clostridium difficile SNOMED: 836538324 (4) Diarrhea ICD Codes: R19.7 - Diarrhea SNOMED: 90955172 (5) Myeloma ICD Codes: C90.00 - Multiple myeloma not having achieved remission SNOMED: 725926027 (6) Amyloidosis ICD Codes: E85.9 - Amyloidosis, unspecified SNOMED: 87264533 (7) Chemotherapy-induced diarrhea ICD Codes: K52.1 - Toxic gastroenteritis and colitis; T45.1X5A - Adverse effect of antineoplastic and immunosuppressive drugs, initial encounter SNOMED: 050698058, 753181109 Status: progressing, unchanged Status Narrative Discussed with Dr. Flores. Assessment/Plan s/p EGD/colonoscopy 2015 >> amyloidosis CT AP reviewed >> unremarkable cdiff positive >> vanco stool culture normal folate/B12 WNL monitor H&H, prn transfusions low residual/fiber diet / lactose free diet >> tolerating IV hydration + electrolyte replacement H2B fu labs, Vit D Subjective Subjective abdominal pain resolved recurrent diarrhea abdominal tenderness Objective Last 24 Hour Vital Signs Date Time Temp Pulse Resp B/P (MAP) Pulse Ox O2 Delivery O2 Flow Rate FiO2 04/04/17 09:21 75 141/67 04/04/17 09:21 75 141/67 04/04/17 08:00 97.9 75 19 141/67 99 Room Air 04/04/17 00:00 97.9 75 20 119/65 97 Room Air 04/03/17 20:36 68 115/60 04/03/17 20:00 97.7 68 18 115/60 99 Room Air 04/03/17 15:56 97.2 63 20 120/60 100 Room Air 04/03/17 11:55 98.0 65 20 116/62 100 Room Air Laboratory Tests Test 04/04/17 06:50 White Blood Count 6.2 K/UL (4.8-10.8) Red Blood Count 3.37 M/UL (4.70-6.10) L Hemoglobin 11.2 G/DL (14.2-18.0) L Hematocrit 33.7 % (42.0-52.0) L Mean Corpuscular Volume 100 FL (80-99) H Mean Corpuscular Hemoglobin 33.3 PG (27.0-31.0) H Mean Corpuscular Hemoglobin Concent 33.2 G/DL (32.0-36.0) Red Cell Distribution Width 15.5 % (11.6-14.8) H Platelet Count 146 K/UL (150-450) L Mean Platelet Volume 7.8 FL (6.5-10.1) Neutrophils (%) (Auto) 66.7 % (45.0-75.0) Lymphocytes (%) (Auto) 17.1 % (20.0-45.0) L Monocytes (%) (Auto) 13.0 % (1.0-10.0) H Eosinophils (%) (Auto) 2.6 % (0.0-3.0) Basophils (%) (Auto) 0.7 % (0.0-2.0) Sodium Level 139 MMOL/L (136-145) Potassium Level 4.1 MMOL/L (3.5-5.1) Chloride Level 108 MMOL/L (98-107) H Carbon Dioxide Level 21 MMOL/L (21-32) Anion Gap 10 mmol/L (5-15) Blood Urea Nitrogen 15 mg/dL (7-18) Creatinine 1.4 MG/DL (0.55-1.30) H Estimat Glomerular Filtration Rate mL/min (>60) Glucose Level 97 MG/DL (74-106) Calcium Level 8.9 MG/DL (8.5-10.1) Height (Feet): 6 Height (Inches): 1.00 Weight (Pounds): 199 General Appearance: WD/WN, no apparent distress, alert Cardiovascular: normal rate Respiratory/Chest: normal breath sounds, no respiratory distress Abdominal Exam: normal bowel sounds, non tender, soft Extremities: normal range of motion, non-tender Domenica Chanel NKirti Apr 04, 2017 10:28
--- NOTE | 2017-04-04 10:28 | GI Progress Note ---
Assessment/Plan Problems: (1) Clostridium difficile diarrhea ICD Codes: A04.72 - Enterocolitis due to Clostridium difficile, not specified as recurrent SNOMED: 1690792198102 (2) Anemia ICD Codes: D64.9 - Anemia, unspecified SNOMED: 221638226 (3) C. difficile colitis ICD Codes: A04.7 - Enterocolitis due to Clostridium difficile SNOMED: 705748206 (4) Diarrhea ICD Codes: R19.7 - Diarrhea SNOMED: 75359505 (5) Myeloma ICD Codes: C90.00 - Multiple myeloma not having achieved remission SNOMED: 905695126 (6) Amyloidosis ICD Codes: E85.9 - Amyloidosis, unspecified SNOMED: 06287522 (7) Chemotherapy-induced diarrhea ICD Codes: K52.1 - Toxic gastroenteritis and colitis; T45.1X5A - Adverse effect of antineoplastic and immunosuppressive drugs, initial encounter SNOMED: 428898875, 761210404 Status: progressing, unchanged Status Narrative Discussed with Dr. Flores. Assessment/Plan s/p EGD/colonoscopy 2015 >> amyloidosis CT AP reviewed >> unremarkable cdiff positive >> vanco stool culture normal folate/B12 WNL monitor H&H, prn transfusions low residual/fiber diet / lactose free diet >> tolerating IV hydration + electrolyte replacement H2B fu labs, Vit D Subjective Subjective abdominal pain resolved recurrent diarrhea abdominal tenderness Objective Last 24 Hour Vital Signs Date Time Temp Pulse Resp B/P (MAP) Pulse Ox O2 Delivery O2 Flow Rate FiO2 04/04/17 09:21 75 141/67 04/04/17 09:21 75 141/67 04/04/17 08:00 97.9 75 19 141/67 99 Room Air 04/04/17 00:00 97.9 75 20 119/65 97 Room Air 04/03/17 20:36 68 115/60 04/03/17 20:00 97.7 68 18 115/60 99 Room Air 04/03/17 15:56 97.2 63 20 120/60 100 Room Air 04/03/17 11:55 98.0 65 20 116/62 100 Room Air Laboratory Tests Test 04/04/17 06:50 White Blood Count 6.2 K/UL (4.8-10.8) Red Blood Count 3.37 M/UL (4.70-6.10) L Hemoglobin 11.2 G/DL (14.2-18.0) L Hematocrit 33.7 % (42.0-52.0) L Mean Corpuscular Volume 100 FL (80-99) H Mean Corpuscular Hemoglobin 33.3 PG (27.0-31.0) H Mean Corpuscular Hemoglobin Concent 33.2 G/DL (32.0-36.0) Red Cell Distribution Width 15.5 % (11.6-14.8) H Platelet Count 146 K/UL (150-450) L Mean Platelet Volume 7.8 FL (6.5-10.1) Neutrophils (%) (Auto) 66.7 % (45.0-75.0) Lymphocytes (%) (Auto) 17.1 % (20.0-45.0) L Monocytes (%) (Auto) 13.0 % (1.0-10.0) H Eosinophils (%) (Auto) 2.6 % (0.0-3.0) Basophils (%) (Auto) 0.7 % (0.0-2.0) Sodium Level 139 MMOL/L (136-145) Potassium Level 4.1 MMOL/L (3.5-5.1) Chloride Level 108 MMOL/L (98-107) H Carbon Dioxide Level 21 MMOL/L (21-32) Anion Gap 10 mmol/L (5-15) Blood Urea Nitrogen 15 mg/dL (7-18) Creatinine 1.4 MG/DL (0.55-1.30) H Estimat Glomerular Filtration Rate mL/min (>60) Glucose Level 97 MG/DL (74-106) Calcium Level 8.9 MG/DL (8.5-10.1) Height (Feet): 6 Height (Inches): 1.00 Weight (Pounds): 199 General Appearance: WD/WN, no apparent distress, alert Cardiovascular: normal rate Respiratory/Chest: normal breath sounds, no respiratory distress Abdominal Exam: normal bowel sounds, non tender, soft Extremities: normal range of motion, non-tender Domenica Chanel NKirti Apr 04, 2017 10:28
[2017-04-04 12:00] VITALS: BP 109/61
--- NOTE | 2017-04-04 12:11 | Internal Med Progress Note ---
Subjective Date of Service: Apr 04, 2017 Physician Name Mando Schilling Attending Physician Jovani Villagomez MD Current Medications Medications (Trade) Dose Ordered Sig/Antionette Route PRN Reason Start Time Stop Time Status Last Admin Dose Admin Acetaminophen (Tylenol) 650 mg Q4H PRN ORAL fever 03/28/17 13:15 04/27/17 13:14 Al Hydroxide/Mg Hydroxide (Mylanta II) 30 ml Q6H PRN ORAL dyspepsia 03/28/17 13:15 04/27/17 13:14 Allopurinol (Allopurinol) 300 mg DAILY ORAL 03/29/17 09:00 04/28/17 08:59 04/04/17 09:21 Amlodipine Besylate (Norvasc) 5 mg DAILY ORAL 03/29/17 09:00 04/28/17 08:59 04/04/17 09:21 Aspirin (Ecotrin) 81 mg DAILY ORAL 03/29/17 09:00 04/28/17 08:59 04/04/17 09:21 Atorvastatin Calcium (Lipitor) 20 mg BEDTIME ORAL 03/28/17 21:00 04/27/17 20:59 04/03/17 20:35 Clonidine HCl (Catapres) 0.1 mg Q8H PRN ORAL sbp>170 03/28/17 13:15 04/27/17 13:14 Dextrose (Dextrose 50%) STAT PRN IV Hypoglycemia 03/28/17 13:15 04/27/17 13:14 Diphenhydramine HCl (Benadryl) 25 mg Q6H PRN ORAL Itching/Pruritis 03/28/17 13:15 04/27/17 13:14 Diphenoxylate HCl/ Atropine (Lomotil) 2.5 mg Q4H PRN ORAL Diarrhea 03/31/17 11:00 04/30/17 10:59 04/04/17 09:26 Dronabinol (Marinol) 5 mg BID ORAL 03/28/17 18:00 04/27/17 17:59 04/04/17 09:22 Finasteride (Proscar) 5 mg DAILY ORAL 03/29/17 09:00 04/28/17 08:59 04/04/17 09:21 Lorazepam (Ativan 2mg/ml 1ml) 1 mg Q4H PRN IV agitation 03/28/17 13:15 04/04/17 13:14 Magnesium Oxide (Mag-Ox 400mg) 400 mg THREE TIMES A DAY ORAL 04/01/17 13:00 05/01/17 12:59 04/04/17 09:21 Metoclopramide HCl (Reglan) 10 mg Q6H PRN IVP severe nausea 03/28/17 13:15 04/27/17 13:14 Metoprolol Tartrate (Lopressor) 25 mg Q12HR ORAL 03/28/17 21:00 04/27/17 20:59 04/04/17 09:21 Morphine Sulfate (Morphine 10mg/ 5ml Oral Soln) 6 mg Q4H PRN ORAL Severe Pain (Pain Scale 7-10) 03/31/17 16:15 04/07/17 16:14 Nitroglycerin (Ntg) 0.4 mg Q5M X 3 DOSES PRN SL Prn Chest Pain 03/28/17 13:15 04/27/17 13:14 Nortriptyline HCl (Pamelor) 25 mg QHS ORAL 03/28/17 21:00 04/27/17 20:59 04/03/17 20:35 Ondansetron HCl (Zofran) 4 mg Q6H PRN IVP Nausea & Vomiting 03/28/17 13:15 04/27/17 13:14 Pantoprazole (Protonix) 40 mg DAILY ORAL 04/03/17 09:00 05/03/17 08:59 04/04/17 09:21 Polyethylene Glycol (Miralax) 17 gm HSPRN PRN ORAL Constipation 03/28/17 13:15 04/27/17 13:14 Pregabalin (Lyrica) 75 mg BIDPRN PRN ORAL nerve pain 03/28/17 13:15 04/27/17 13:14 Promethazine HCl (Phenergan) 25 mg Q8H PRN IV refractory nausea 03/28/17 13:15 04/27/17 13:14 Tamsulosin HCl (Flomax) 0.4 mg BID ORAL 03/28/17 18:00 04/27/17 17:59 04/04/17 09:21 Temazepam (Restoril) 15 mg HSPRN PRN ORAL Insomnia 03/28/17 13:15 04/04/17 13:14 Vancomycin HCl (Vancomycin) 125 mg FOUR TIMES A DAY ORAL 03/29/17 13:00 04/12/17 12:59 04/04/17 09:22 Allergies: Coded Allergies: No Known Allergies (Unverified , 04/23/13) ROS Limited/Unobtainable: No Constitutional: Reports: no symptoms HEENT: Reports: no symptoms Cardiovascular: Reports: no symptoms Respiratory: Reports: no symptoms Gastrointestinal/Abdominal: Reports: abdominal pain, diarrhea Genitourinary: Reports: no symptoms Neurologic/Psychiatric: Reports: no symptoms Subjective 76 YO M admitted with abdominal pain and diarrhea. Now C. Diff Colitis. Cover for Int Med - Dr Villagomez Objective Last Vital Signs Date Time Temp Pulse Resp B/P (MAP) Pulse Ox O2 Delivery O2 Flow Rate FiO2 04/04/17 09:21 75 141/67 04/04/17 08:00 97.9 19 99 Room Air Laboratory Tests Test 04/04/17 06:50 White Blood Count 6.2 K/UL (4.8-10.8) Red Blood Count 3.37 M/UL (4.70-6.10) L Hemoglobin 11.2 G/DL (14.2-18.0) L Hematocrit 33.7 % (42.0-52.0) L Mean Corpuscular Volume 100 FL (80-99) H Mean Corpuscular Hemoglobin 33.3 PG (27.0-31.0) H Mean Corpuscular Hemoglobin Concent 33.2 G/DL (32.0-36.0) Red Cell Distribution Width 15.5 % (11.6-14.8) H Platelet Count 146 K/UL (150-450) L Mean Platelet Volume 7.8 FL (6.5-10.1) Neutrophils (%) (Auto) 66.7 % (45.0-75.0) Lymphocytes (%) (Auto) 17.1 % (20.0-45.0) L Monocytes (%) (Auto) 13.0 % (1.0-10.0) H Eosinophils (%) (Auto) 2.6 % (0.0-3.0) Basophils (%) (Auto) 0.7 % (0.0-2.0) Sodium Level 139 MMOL/L (136-145) Potassium Level 4.1 MMOL/L (3.5-5.1) Chloride Level 108 MMOL/L (98-107) H Carbon Dioxide Level 21 MMOL/L (21-32) Anion Gap 10 mmol/L (5-15) Blood Urea Nitrogen 15 mg/dL (7-18) Creatinine 1.4 MG/DL (0.55-1.30) H Estimat Glomerular Filtration Rate mL/min (>60) Glucose Level 97 MG/DL (74-106) Calcium Level 8.9 MG/DL (8.5-10.1) Objective General Appearance: WD/WN, no apparent distress, alert EENT: PERRL/EOMI, normal ENT inspection Neck: non-tender, normal alignment, supple Cardiovascular: normal peripheral pulses, normal rate, regular rhythm, no gallop/murmur, no JVD Respiratory/Chest: chest wall non-tender, lungs clear, normal breath sounds, no respiratory distress, no accessory muscle use, respiratory distress Abdomen: hyperactive bowel sounds, hypoactive bowel sounds, distended, guarding , rebound, tender Extremities: normal range of motion Neurologic: vascular ultrasound technologist II-XII grossly normal, no motor/sensory deficits Skin: normal pigmentation, warm/dry Assessment/Plan Problem List: (1) Abdominal pain (2) C. difficile colitis Assessment & Plan: See GI note. Cont oral vanco (3) Clostridium difficile diarrhea (4) Amyloidosis Assessment & Plan: GI. See GI note. (5) Multiple myeloma (6) HTN (hypertension) Assessment & Plan: Cont norvasc (7) Anemia (8) BPH (benign prostatic hyperplasia) Assessment & Plan: Cont proscar and flomax (9) CAD (coronary artery disease) (10) Diarrhea Assessment & Plan: Cont oral vanco for C.Diff per ID Status: MANDO Leahy Apr 04, 2017 12:11
--- NOTE | 2017-04-04 12:27 | Infectious Diseases Prog Note ---
Assessment/Plan Assessment/Plan Abx: PO Vancomycin 03/29- Assesment: Diarrhea- 2ry to Cdiff colitis- r/o other pathogens given immunocompromised state; improving -CT abd/p: No definite acute process. Small sliding-type hiatal hernia, also previously described. Cardiomegaly. 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, right hip degenerative change, degenerative spondylosis, prostatomegaly with prior TURP, inferior vena cava filter -stool cx, Giardia ag neg -Cdiff + toxin A/B Immunocompromised state Multiple myeloma on chemotherapy tx for the last 3 years GI tract amyloidosis hx of appendicitis c/w perforation s/p exp lap and subsequent development of intraabdominal abscess May 2015 HTN, hx Prostate CA s/p TURP, CAD s/p CABG Plan: -Continue PO Vancomycin 125mg bid #12/17 -f/u cryptosporidium, cyclospora/isospora, microposridium on stool -if not improvement on above regimen, must need to consider CMV disease -f/u cx -Monitor CBC/BMP, temperatures Thank you for this consultation. Will continue to follow along with you. Discussed with RN. Subjective Allergies: Coded Allergies: No Known Allergies (Unverified , 04/23/13) Subjective afebrile VSS no leukocytosis bcx neg Diarrhea improving- initially having >12 BM/day- yesterday had 6 BM, today so far 2 Objective Vital Signs Last 24 Hour Vital Signs Date Time Temp Pulse Resp B/P (MAP) Pulse Ox O2 Delivery O2 Flow Rate FiO2 04/04/17 09:21 75 141/67 04/04/17 09:21 75 141/67 04/04/17 08:00 97.9 75 19 141/67 99 Room Air 04/04/17 00:00 97.9 75 20 119/65 97 Room Air 04/03/17 20:36 68 115/60 04/03/17 20:00 97.7 68 18 115/60 99 Room Air 04/03/17 15:56 97.2 63 20 120/60 100 Room Air Height (Feet): 6 Height (Inches): 1.00 Weight (Pounds): 199 Objective GENERAL: The patient is a well-developed and well-nourished male, in no apparent distress. HEENT: Eyes, pupils equal and responsive to light and accommodation.Extraocular movements are intact. NECK: Supple without lymphadenopathy. CHEST: Lungs are clear to auscultation bilaterally without wheezes orrales. CARDIOVASCULAR: Regular rhythm and rate. S1 and S2 normal without murmurs, rubs, or gallops. ABDOMEN: Soft, diffusely tender with positive bowel sounds. No evidence of rebound noted. EXTREMITIES: Negative for clubbing, cyanosis, or edema. NEUROLOGIC: AAO x3, no focal deficits reviewed Laboratory Tests Test 04/04/17 06:50 White Blood Count 6.2 K/UL (4.8-10.8) Red Blood Count 3.37 M/UL (4.70-6.10) L Hemoglobin 11.2 G/DL (14.2-18.0) L Hematocrit 33.7 % (42.0-52.0) L Mean Corpuscular Volume 100 FL (80-99) H Mean Corpuscular Hemoglobin 33.3 PG (27.0-31.0) H Mean Corpuscular Hemoglobin Concent 33.2 G/DL (32.0-36.0) Red Cell Distribution Width 15.5 % (11.6-14.8) H Platelet Count 146 K/UL (150-450) L Mean Platelet Volume 7.8 FL (6.5-10.1) Neutrophils (%) (Auto) 66.7 % (45.0-75.0) Lymphocytes (%) (Auto) 17.1 % (20.0-45.0) L Monocytes (%) (Auto) 13.0 % (1.0-10.0) H Eosinophils (%) (Auto) 2.6 % (0.0-3.0) Basophils (%) (Auto) 0.7 % (0.0-2.0) Sodium Level 139 MMOL/L (136-145) Potassium Level 4.1 MMOL/L (3.5-5.1) Chloride Level 108 MMOL/L (98-107) H Carbon Dioxide Level 21 MMOL/L (21-32) Anion Gap 10 mmol/L (5-15) Blood Urea Nitrogen 15 mg/dL (7-18) Creatinine 1.4 MG/DL (0.55-1.30) H Estimat Glomerular Filtration Rate mL/min (>60) Glucose Level 97 MG/DL (74-106) Calcium Level 8.9 MG/DL (8.5-10.1) Current Medications Medications (Trade) Dose Ordered Sig/Antionette Route PRN Reason Start Time Stop Time Status Last Admin Dose Admin Acetaminophen (Tylenol) 650 mg Q4H PRN ORAL fever 03/28/17 13:15 04/27/17 13:14 Al Hydroxide/Mg Hydroxide (Mylanta II) 30 ml Q6H PRN ORAL dyspepsia 03/28/17 13:15 04/27/17 13:14 Allopurinol (Allopurinol) 300 mg DAILY ORAL 03/29/17 09:00 04/28/17 08:59 04/04/17 09:21 Amlodipine Besylate (Norvasc) 5 mg DAILY ORAL 03/29/17 09:00 04/28/17 08:59 04/04/17 09:21 Aspirin (Ecotrin) 81 mg DAILY ORAL 03/29/17 09:00 04/28/17 08:59 04/04/17 09:21 Atorvastatin Calcium (Lipitor) 20 mg BEDTIME ORAL 03/28/17 21:00 04/27/17 20:59 04/03/17 20:35 Clonidine HCl (Catapres) 0.1 mg Q8H PRN ORAL sbp>170 03/28/17 13:15 04/27/17 13:14 Dextrose (Dextrose 50%) STAT PRN IV Hypoglycemia 03/28/17 13:15 04/27/17 13:14 Diphenhydramine HCl (Benadryl) 25 mg Q6H PRN ORAL Itching/Pruritis 03/28/17 13:15 04/27/17 13:14 Diphenoxylate HCl/ Atropine (Lomotil) 2.5 mg Q4H PRN ORAL Diarrhea 03/31/17 11:00 04/30/17 10:59 04/04/17 09:26 Dronabinol (Marinol) 5 mg BID ORAL 03/28/17 18:00 04/27/17 17:59 04/04/17 09:22 Finasteride (Proscar) 5 mg DAILY ORAL 03/29/17 09:00 04/28/17 08:59 04/04/17 09:21 Lorazepam (Ativan 2mg/ml 1ml) 1 mg Q4H PRN IV agitation 03/28/17 13:15 04/04/17 13:14 Magnesium Oxide (Mag-Ox 400mg) 400 mg THREE TIMES A DAY ORAL 04/01/17 13:00 05/01/17 12:59 04/04/17 09:21 Metoclopramide HCl (Reglan) 10 mg Q6H PRN IVP severe nausea 03/28/17 13:15 04/27/17 13:14 Metoprolol Tartrate (Lopressor) 25 mg Q12HR ORAL 03/28/17 21:00 04/27/17 20:59 04/04/17 09:21 Morphine Sulfate (Morphine 10mg/ 5ml Oral Soln) 6 mg Q4H PRN ORAL Severe Pain (Pain Scale 7-10) 03/31/17 16:15 04/07/17 16:14 Nitroglycerin (Ntg) 0.4 mg Q5M X 3 DOSES PRN SL Prn Chest Pain 03/28/17 13:15 04/27/17 13:14 Nortriptyline HCl (Pamelor) 25 mg QHS ORAL 03/28/17 21:00 04/27/17 20:59 04/03/17 20:35 Ondansetron HCl (Zofran) 4 mg Q6H PRN IVP Nausea & Vomiting 03/28/17 13:15 04/27/17 13:14 Pantoprazole (Protonix) 40 mg DAILY ORAL 04/03/17 09:00 05/03/17 08:59 04/04/17 09:21 Polyethylene Glycol (Miralax) 17 gm HSPRN PRN ORAL Constipation 03/28/17 13:15 04/27/17 13:14 Pregabalin (Lyrica) 75 mg BIDPRN PRN ORAL nerve pain 03/28/17 13:15 04/27/17 13:14 Promethazine HCl (Phenergan) 25 mg Q8H PRN IV refractory nausea 03/28/17 13:15 04/27/17 13:14 Tamsulosin HCl (Flomax) 0.4 mg BID ORAL 03/28/17 18:00 04/27/17 17:59 04/04/17 09:21 Temazepam (Restoril) 15 mg HSPRN PRN ORAL Insomnia 03/28/17 13:15 04/04/17 13:14 Vancomycin HCl (Vancomycin) 125 mg FOUR TIMES A DAY ORAL 03/29/17 13:00 04/12/17 12:59 04/04/17 09:22 Yaima Nguyễn M.D. Apr 04, 2017 12:27
[2017-04-04 16:05] VITALS: BP_SYST 118; BP_SYST 137; BP_DIAS 51; BP_DIAS 57
[2017-04-04] MEDS ORDERED: MAGOX 400400 MG ORAL (18:30)
[2017-04-04] MEDS ORDERED: VANCOMYCIN HCL125 MG PO (18:31)
[2017-04-04] MEDS ORDERED: PROTONIX40 MG ORAL (18:32)
[2017-04-04 19:30] VITALS: BP 118/60
[2017-04-04] MEDS: Nortriptyline 25mg cap ORAL SCH (20:33)
[2017-04-04] MEDS: Atorvastatin 20mg tab ORAL SCH (20:33)
--- NOTE | 2017-04-04 22:23 | Pulmonology Progress Note ---
Assessment/Plan Problems: (1) C. difficile colitis (2) Abdominal pain (3) CAD (coronary artery disease) (4) Diarrhea Assessment/Plan improving continue abx, BC negative check electrolytess iv fluid all notes and meds reviewed Subjective ROS Limited/Unobtainable: No Constitutional: Reports: no symptoms HEENT: Repors: no symptoms Respiratory: Reports: no symptoms Allergies: Coded Allergies: No Known Allergies (Unverified , 04/23/13) Objective Last 24 Hour Vital Signs Date Time Temp Pulse Resp B/P (MAP) Pulse Ox O2 Delivery O2 Flow Rate FiO2 04/04/17 20:33 73 118/60 04/04/17 19:30 97.2 73 20 118/60 99 04/04/17 16:05 97.0 65 18 118/51 100 Room Air 04/04/17 12:00 97.7 62 17 109/61 100 Room Air 04/04/17 09:21 75 141/67 04/04/17 09:21 75 141/67 04/04/17 08:00 97.9 75 19 141/67 99 Room Air 04/04/17 00:00 97.9 75 20 119/65 97 Room Air Intake and Output 04/04/17 04/05/17 19:00 07:00 Intake Total 1400 ml Balance 1400 ml Intake Oral 1400 ml # Voids 3 # Bowel Movements 4 General Appearance: WD/WN HEENT: normocephalic, atraumatic Respiratory/Chest: chest wall non-tender, lungs clear Cardiovascular: normal peripheral pulses, normal rate Abdomen: normal bowel sounds, soft, non tender, no scars Genitourinary: normal external genitalia Skin: no ulcers Neurologic/Psychiatric: guest relations officer II-XII grossly normal Laboratory Tests 04/04/17 06:50: White Blood Count 6.2, Red Blood Count 3.37L, Hemoglobin 11.2L, Hematocrit 33.7L , Mean Corpuscular Volume 100H, Mean Corpuscular Hemoglobin 33.3H, Mean Corpuscular Hemoglobin Concent 33.2, Red Cell Distribution Width 15.5H, Platelet Count 146L, Mean Platelet Volume 7.8, Neutrophils (%) (Auto) 66.7, Lymphocytes (%) (Auto) 17.1L, Monocytes (%) (Auto) 13.0H, Eosinophils (%) (Auto ) 2.6, Basophils (%) (Auto) 0.7, Sodium Level 139, Potassium Level 4.1, Chloride Level 108H, Carbon Dioxide Level 21, Anion Gap 10, Blood Urea Nitrogen 15, Creatinine 1.4H, Estimat Glomerular Filtration Rate , Glucose Level 97, Calcium Level 8.9 Current Medications Medications (Trade) Dose Ordered Sig/Antionette Route PRN Reason Start Time Stop Time Status Last Admin Dose Admin Acetaminophen (Tylenol) 650 mg Q4H PRN ORAL fever 03/28/17 13:15 04/27/17 13:14 Al Hydroxide/Mg Hydroxide (Mylanta II) 30 ml Q6H PRN ORAL dyspepsia 03/28/17 13:15 04/27/17 13:14 Allopurinol (Allopurinol) 300 mg DAILY ORAL 03/29/17 09:00 04/28/17 08:59 04/04/17 09:21 Amlodipine Besylate (Norvasc) 5 mg DAILY ORAL 03/29/17 09:00 04/28/17 08:59 04/04/17 09:21 Aspirin (Ecotrin) 81 mg DAILY ORAL 03/29/17 09:00 04/28/17 08:59 04/04/17 09:21 Atorvastatin Calcium (Lipitor) 20 mg BEDTIME ORAL 03/28/17 21:00 04/27/17 20:59 04/04/17 20:33 Clonidine HCl (Catapres) 0.1 mg Q8H PRN ORAL sbp>170 03/28/17 13:15 04/27/17 13:14 Dextrose (Dextrose 50%) STAT PRN IV Hypoglycemia 03/28/17 13:15 04/27/17 13:14 Diphenhydramine HCl (Benadryl) 25 mg Q6H PRN ORAL Itching/Pruritis 03/28/17 13:15 04/27/17 13:14 Diphenoxylate HCl/ Atropine (Lomotil) 2.5 mg Q4H PRN ORAL Diarrhea 03/31/17 11:00 04/30/17 10:59 04/04/17 17:34 Dronabinol (Marinol) 5 mg BID ORAL 03/28/17 18:00 04/27/17 17:59 04/04/17 17:34 Finasteride (Proscar) 5 mg DAILY ORAL 03/29/17 09:00 04/28/17 08:59 04/04/17 09:21 Magnesium Oxide (Mag-Ox 400mg) 400 mg THREE TIMES A DAY ORAL 04/01/17 13:00 05/01/17 12:59 04/04/17 17:34 Metoclopramide HCl (Reglan) 10 mg Q6H PRN IVP severe nausea 03/28/17 13:15 04/27/17 13:14 Metoprolol Tartrate (Lopressor) 25 mg Q12HR ORAL 03/28/17 21:00 04/27/17 20:59 04/04/17 20:33 Morphine Sulfate (Morphine 10mg/ 5ml Oral Soln) 6 mg Q4H PRN ORAL Severe Pain (Pain Scale 7-10) 03/31/17 16:15 04/07/17 16:14 Nitroglycerin (Ntg) 0.4 mg Q5M X 3 DOSES PRN SL Prn Chest Pain 03/28/17 13:15 04/27/17 13:14 Nortriptyline HCl (Pamelor) 25 mg QHS ORAL 03/28/17 21:00 04/27/17 20:59 04/04/17 20:33 Ondansetron HCl (Zofran) 4 mg Q6H PRN IVP Nausea & Vomiting 03/28/17 13:15 04/27/17 13:14 Pantoprazole (Protonix) 40 mg DAILY ORAL 04/03/17 09:00 05/03/17 08:59 04/04/17 09:21 Polyethylene Glycol (Miralax) 17 gm HSPRN PRN ORAL Constipation 03/28/17 13:15 04/27/17 13:14 Pregabalin (Lyrica) 75 mg BIDPRN PRN ORAL nerve pain 03/28/17 13:15 04/27/17 13:14 Promethazine HCl (Phenergan) 25 mg Q8H PRN IV refractory nausea 03/28/17 13:15 04/27/17 13:14 Tamsulosin HCl (Flomax) 0.4 mg BID ORAL 03/28/17 18:00 04/27/17 17:59 04/04/17 17:34 Vancomycin HCl (Vancomycin) 125 mg FOUR TIMES A DAY ORAL 03/29/17 13:00 04/12/17 12:59 04/04/17 20:33 GOLDEN LIM Apr 04, 2017 22:23
[2017-04-05 05:55] LABS: BASOPHILS % (AUTO) 1.7 % (0.0-2.0); HEMATOCRIT 32.8 % (42.0-52.0); HEMOGLOBIN 10.9 G/DL (14.2-18.0); LYMPHOCYTES % (AUTO) 16.8 % (20.0-45.0); MEAN CORPUSCULAR VOLUME 100 FL (80-99); MONOCYTES % (AUTO) 12.2 % (1.0-10.0); NEUTROPHILS % (AUTO) 66.3 % (45.0-75.0); PLATELET COUNT 161 K/UL (150-450); RED BLOOD COUNT 3.29 M/UL (4.70-6.10); RED CELL DISTRIBUTION WIDTH 15.1 % (11.6-14.8); WHITE BLOOD COUNT 6.3 K/UL (4.8-10.8)
[2017-04-05 06:09] LABS: ANION GAP 14 mmol/L (5-15); BLOOD UREA NITROGEN 14 mg/dL (7-18); CALCIUM 8.8 MG/DL (8.5-10.1); CARBON DIOXIDE 17 MMOL/L (21-32); CHLORIDE 109 MMOL/L (98-107); CREATININE 1.2 MG/DL (0.55-1.30); POTASSIUM 4.6 MMOL/L (3.5-5.1); SODIUM 140 MMOL/L (136-145)
[2017-04-05 08:25] VITALS: BP 108/55
[2017-04-05] MEDS: Vancomycin oral 125mg/2.5ml ORAL SCH ×2 (09:12→12:29)
[2017-04-05] MEDS: Tamsulosin 0.4mg cap ORAL SCH (09:13)
[2017-04-05] MEDS: Magnesium Oxide 400mg tab ORAL SCH ×2 (09:13→12:29)
[2017-04-05] MEDS: Dronabinol 2.5mg Cap ORAL SCH (09:13)
[2017-04-05] MEDS: Metoprolol 25mg tab ORAL SCH (09:13)
[2017-04-05] MEDS: Aspirin EC 81mg tab ORAL SCH (09:14)
[2017-04-05 12:16] VITALS: BP 93/53
--- NOTE | 2017-04-05 13:10 | GI Progress Note ---
Assessment/Plan Problems: (1) Clostridium difficile diarrhea ICD Codes: A04.72 - Enterocolitis due to Clostridium difficile, not specified as recurrent SNOMED: 7650949677754 (2) Anemia ICD Codes: D64.9 - Anemia, unspecified SNOMED: 506411142 (3) C. difficile colitis ICD Codes: A04.7 - Enterocolitis due to Clostridium difficile SNOMED: 697914749 (4) Diarrhea ICD Codes: R19.7 - Diarrhea SNOMED: 93152981 (5) Myeloma ICD Codes: C90.00 - Multiple myeloma not having achieved remission SNOMED: 781428193 (6) Amyloidosis ICD Codes: E85.9 - Amyloidosis, unspecified SNOMED: 40335926 (7) Chemotherapy-induced diarrhea ICD Codes: K52.1 - Toxic gastroenteritis and colitis; T45.1X5A - Adverse effect of antineoplastic and immunosuppressive drugs, initial encounter SNOMED: 339682665, 195124999 Status: stable Status Narrative Discussed with Dr. Flores. Assessment/Plan s/p EGD/colonoscopy 2015 >> amyloidosis CT AP reviewed >> unremarkable cdiff positive >> vanco stool culture normal folate/B12 WNL Vid D deficiency monitor H&H, prn transfusions low residual/fiber diet / lactose free diet >> tolerating IV hydration + electrolyte replacement abx H2B fu labs Subjective Subjective abdominal pain resolved recurrent diarrhea abdominal tenderness Objective Last 24 Hour Vital Signs Date Time Temp Pulse Resp B/P (MAP) Pulse Ox O2 Delivery O2 Flow Rate FiO2 04/05/17 12:16 97.7 69 18 93/53 98 Room Air 04/05/17 09:14 72 108/55 04/05/17 09:13 72 108/55 04/05/17 08:25 97.9 72 18 108/55 100 Room Air 04/04/17 20:33 73 118/60 04/04/17 19:30 97.2 73 20 118/60 99 04/04/17 16:05 97.0 65 18 118/51 100 Room Air Laboratory Tests Test 04/05/17 04:55 White Blood Count 6.3 K/UL (4.8-10.8) Red Blood Count 3.29 M/UL (4.70-6.10) L Hemoglobin 10.9 G/DL (14.2-18.0) L Hematocrit 32.8 % (42.0-52.0) L Mean Corpuscular Volume 100 FL (80-99) H Mean Corpuscular Hemoglobin 33.2 PG (27.0-31.0) H Mean Corpuscular Hemoglobin Concent 33.3 G/DL (32.0-36.0) Red Cell Distribution Width 15.1 % (11.6-14.8) H Platelet Count 161 K/UL (150-450) Mean Platelet Volume 8.6 FL (6.5-10.1) Neutrophils (%) (Auto) 66.3 % (45.0-75.0) Lymphocytes (%) (Auto) 16.8 % (20.0-45.0) L Monocytes (%) (Auto) 12.2 % (1.0-10.0) H Eosinophils (%) (Auto) 3.0 % (0.0-3.0) Basophils (%) (Auto) 1.7 % (0.0-2.0) Sodium Level 140 MMOL/L (136-145) Potassium Level 4.6 MMOL/L (3.5-5.1) Chloride Level 109 MMOL/L (98-107) H Carbon Dioxide Level 17 MMOL/L (21-32) L Anion Gap 14 mmol/L (5-15) Blood Urea Nitrogen 14 mg/dL (7-18) Creatinine 1.2 MG/DL (0.55-1.30) Estimat Glomerular Filtration Rate mL/min (>60) Glucose Level 86 MG/DL (74-106) Calcium Level 8.8 MG/DL (8.5-10.1) Magnesium Level 1.8 MG/DL (1.8-2.4) Height (Feet): 6 Height (Inches): 1.00 Weight (Pounds): 199 General Appearance: WD/WN, no apparent distress, alert Cardiovascular: normal rate Respiratory/Chest: normal breath sounds, no respiratory distress Abdominal Exam: normal bowel sounds, non tender, soft Extremities: normal range of motion, non-tender Domenica Chanel N.P. Apr 05, 2017 13:10
--- NOTE | 2017-04-05 13:10 | GI Progress Note ---
Assessment/Plan Problems: (1) Clostridium difficile diarrhea ICD Codes: A04.72 - Enterocolitis due to Clostridium difficile, not specified as recurrent SNOMED: 7034631710159 (2) Anemia ICD Codes: D64.9 - Anemia, unspecified SNOMED: 869313607 (3) C. difficile colitis ICD Codes: A04.7 - Enterocolitis due to Clostridium difficile SNOMED: 558045966 (4) Diarrhea ICD Codes: R19.7 - Diarrhea SNOMED: 63860229 (5) Myeloma ICD Codes: C90.00 - Multiple myeloma not having achieved remission SNOMED: 824008878 (6) Amyloidosis ICD Codes: E85.9 - Amyloidosis, unspecified SNOMED: 80863238 (7) Chemotherapy-induced diarrhea ICD Codes: K52.1 - Toxic gastroenteritis and colitis; T45.1X5A - Adverse effect of antineoplastic and immunosuppressive drugs, initial encounter SNOMED: 330711444, 287980583 Status: stable Status Narrative Discussed with Dr. Flores. Assessment/Plan s/p EGD/colonoscopy 2015 >> amyloidosis CT AP reviewed >> unremarkable cdiff positive >> vanco stool culture normal folate/B12 WNL Vid D deficiency monitor H&H, prn transfusions low residual/fiber diet / lactose free diet >> tolerating IV hydration + electrolyte replacement abx H2B fu labs Subjective Subjective abdominal pain resolved recurrent diarrhea abdominal tenderness Objective Last 24 Hour Vital Signs Date Time Temp Pulse Resp B/P (MAP) Pulse Ox O2 Delivery O2 Flow Rate FiO2 04/05/17 12:16 97.7 69 18 93/53 98 Room Air 04/05/17 09:14 72 108/55 04/05/17 09:13 72 108/55 04/05/17 08:25 97.9 72 18 108/55 100 Room Air 04/04/17 20:33 73 118/60 04/04/17 19:30 97.2 73 20 118/60 99 04/04/17 16:05 97.0 65 18 118/51 100 Room Air Laboratory Tests Test 04/05/17 04:55 White Blood Count 6.3 K/UL (4.8-10.8) Red Blood Count 3.29 M/UL (4.70-6.10) L Hemoglobin 10.9 G/DL (14.2-18.0) L Hematocrit 32.8 % (42.0-52.0) L Mean Corpuscular Volume 100 FL (80-99) H Mean Corpuscular Hemoglobin 33.2 PG (27.0-31.0) H Mean Corpuscular Hemoglobin Concent 33.3 G/DL (32.0-36.0) Red Cell Distribution Width 15.1 % (11.6-14.8) H Platelet Count 161 K/UL (150-450) Mean Platelet Volume 8.6 FL (6.5-10.1) Neutrophils (%) (Auto) 66.3 % (45.0-75.0) Lymphocytes (%) (Auto) 16.8 % (20.0-45.0) L Monocytes (%) (Auto) 12.2 % (1.0-10.0) H Eosinophils (%) (Auto) 3.0 % (0.0-3.0) Basophils (%) (Auto) 1.7 % (0.0-2.0) Sodium Level 140 MMOL/L (136-145) Potassium Level 4.6 MMOL/L (3.5-5.1) Chloride Level 109 MMOL/L (98-107) H Carbon Dioxide Level 17 MMOL/L (21-32) L Anion Gap 14 mmol/L (5-15) Blood Urea Nitrogen 14 mg/dL (7-18) Creatinine 1.2 MG/DL (0.55-1.30) Estimat Glomerular Filtration Rate mL/min (>60) Glucose Level 86 MG/DL (74-106) Calcium Level 8.8 MG/DL (8.5-10.1) Magnesium Level 1.8 MG/DL (1.8-2.4) Height (Feet): 6 Height (Inches): 1.00 Weight (Pounds): 199 General Appearance: WD/WN, no apparent distress, alert Cardiovascular: normal rate Respiratory/Chest: normal breath sounds, no respiratory distress Abdominal Exam: normal bowel sounds, non tender, soft Extremities: normal range of motion, non-tender Domenica Chanel N.P. Apr 05, 2017 13:10
--- NOTE | 2017-04-05 13:10 | GI Progress Note ---
Assessment/Plan Problems: (1) Clostridium difficile diarrhea ICD Codes: A04.72 - Enterocolitis due to Clostridium difficile, not specified as recurrent SNOMED: 2273218593389 (2) Anemia ICD Codes: D64.9 - Anemia, unspecified SNOMED: 018785785 (3) C. difficile colitis ICD Codes: A04.7 - Enterocolitis due to Clostridium difficile SNOMED: 846495835 (4) Diarrhea ICD Codes: R19.7 - Diarrhea SNOMED: 18468496 (5) Myeloma ICD Codes: C90.00 - Multiple myeloma not having achieved remission SNOMED: 672525769 (6) Amyloidosis ICD Codes: E85.9 - Amyloidosis, unspecified SNOMED: 19877258 (7) Chemotherapy-induced diarrhea ICD Codes: K52.1 - Toxic gastroenteritis and colitis; T45.1X5A - Adverse effect of antineoplastic and immunosuppressive drugs, initial encounter SNOMED: 106096687, 165963681 Status: stable Status Narrative Discussed with Dr. Flores. Assessment/Plan s/p EGD/colonoscopy 2015 >> amyloidosis CT AP reviewed >> unremarkable cdiff positive >> vanco stool culture normal folate/B12 WNL Vid D deficiency monitor H&H, prn transfusions low residual/fiber diet / lactose free diet >> tolerating IV hydration + electrolyte replacement abx H2B fu labs Subjective Subjective abdominal pain resolved recurrent diarrhea abdominal tenderness Objective Last 24 Hour Vital Signs Date Time Temp Pulse Resp B/P (MAP) Pulse Ox O2 Delivery O2 Flow Rate FiO2 04/05/17 12:16 97.7 69 18 93/53 98 Room Air 04/05/17 09:14 72 108/55 04/05/17 09:13 72 108/55 04/05/17 08:25 97.9 72 18 108/55 100 Room Air 04/04/17 20:33 73 118/60 04/04/17 19:30 97.2 73 20 118/60 99 04/04/17 16:05 97.0 65 18 118/51 100 Room Air Laboratory Tests Test 04/05/17 04:55 White Blood Count 6.3 K/UL (4.8-10.8) Red Blood Count 3.29 M/UL (4.70-6.10) L Hemoglobin 10.9 G/DL (14.2-18.0) L Hematocrit 32.8 % (42.0-52.0) L Mean Corpuscular Volume 100 FL (80-99) H Mean Corpuscular Hemoglobin 33.2 PG (27.0-31.0) H Mean Corpuscular Hemoglobin Concent 33.3 G/DL (32.0-36.0) Red Cell Distribution Width 15.1 % (11.6-14.8) H Platelet Count 161 K/UL (150-450) Mean Platelet Volume 8.6 FL (6.5-10.1) Neutrophils (%) (Auto) 66.3 % (45.0-75.0) Lymphocytes (%) (Auto) 16.8 % (20.0-45.0) L Monocytes (%) (Auto) 12.2 % (1.0-10.0) H Eosinophils (%) (Auto) 3.0 % (0.0-3.0) Basophils (%) (Auto) 1.7 % (0.0-2.0) Sodium Level 140 MMOL/L (136-145) Potassium Level 4.6 MMOL/L (3.5-5.1) Chloride Level 109 MMOL/L (98-107) H Carbon Dioxide Level 17 MMOL/L (21-32) L Anion Gap 14 mmol/L (5-15) Blood Urea Nitrogen 14 mg/dL (7-18) Creatinine 1.2 MG/DL (0.55-1.30) Estimat Glomerular Filtration Rate mL/min (>60) Glucose Level 86 MG/DL (74-106) Calcium Level 8.8 MG/DL (8.5-10.1) Magnesium Level 1.8 MG/DL (1.8-2.4) Height (Feet): 6 Height (Inches): 1.00 Weight (Pounds): 199 General Appearance: WD/WN, no apparent distress, alert Cardiovascular: normal rate Respiratory/Chest: normal breath sounds, no respiratory distress Abdominal Exam: normal bowel sounds, non tender, soft Extremities: normal range of motion, non-tender Domenica Chanel N.P. Apr 05, 2017 13:10
--- NOTE | 2017-04-05 13:31 | Infectious Diseases Prog Note ---
Assessment/Plan Assessment/Plan Abx: PO Vancomycin 03/29- Assesment: Diarrhea- 2ry to Cdiff colitis- improving -CT abd/p: No definite acute process. Small sliding-type hiatal hernia, also previously described. Cardiomegaly. 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, right hip degenerative change, degenerative spondylosis, prostatomegaly with prior TURP, inferior vena cava filter -stool cx, Giardia ag neg -Cdiff + toxin A/B Immunocompromised state Multiple myeloma on chemotherapy tx for the last 3 years GI tract amyloidosis hx of appendicitis c/w perforation s/p exp lap and subsequent development of intraabdominal abscess May 2015 HTN, hx Prostate CA s/p TURP, CAD s/p CABG Plan: -Continue PO Vancomycin 125mg qid # -f/u cryptosporidium, cyclospora/isospora, microposridium on stool -if not improvement on above regimen, must need to consider CMV disease -f/u cx -Monitor CBC/BMP, temperatures Subjective Allergies: Coded Allergies: No Known Allergies (Unverified , 04/23/13) Subjective comfortable Objective Vital Signs Last 24 Hour Vital Signs Date Time Temp Pulse Resp B/P (MAP) Pulse Ox O2 Delivery O2 Flow Rate FiO2 04/05/17 12:16 97.7 69 18 93/53 98 Room Air 04/05/17 09:14 72 108/55 04/05/17 09:13 72 108/55 04/05/17 08:25 97.9 72 18 108/55 100 Room Air 04/04/17 20:33 73 118/60 04/04/17 19:30 97.2 73 20 118/60 99 04/04/17 16:05 97.0 65 18 118/51 100 Room Air Height (Feet): 6 Height (Inches): 1.00 Weight (Pounds): 199 HEENT: anicteric Respiratory/Chest: normal breath sounds Cardiovascular: no gallop/murmur Abdomen: no organomegaly Laboratory Tests Test 04/05/17 04:55 White Blood Count 6.3 K/UL (4.8-10.8) Red Blood Count 3.29 M/UL (4.70-6.10) L Hemoglobin 10.9 G/DL (14.2-18.0) L Hematocrit 32.8 % (42.0-52.0) L Mean Corpuscular Volume 100 FL (80-99) H Mean Corpuscular Hemoglobin 33.2 PG (27.0-31.0) H Mean Corpuscular Hemoglobin Concent 33.3 G/DL (32.0-36.0) Red Cell Distribution Width 15.1 % (11.6-14.8) H Platelet Count 161 K/UL (150-450) Mean Platelet Volume 8.6 FL (6.5-10.1) Neutrophils (%) (Auto) 66.3 % (45.0-75.0) Lymphocytes (%) (Auto) 16.8 % (20.0-45.0) L Monocytes (%) (Auto) 12.2 % (1.0-10.0) H Eosinophils (%) (Auto) 3.0 % (0.0-3.0) Basophils (%) (Auto) 1.7 % (0.0-2.0) Sodium Level 140 MMOL/L (136-145) Potassium Level 4.6 MMOL/L (3.5-5.1) Chloride Level 109 MMOL/L (98-107) H Carbon Dioxide Level 17 MMOL/L (21-32) L Anion Gap 14 mmol/L (5-15) Blood Urea Nitrogen 14 mg/dL (7-18) Creatinine 1.2 MG/DL (0.55-1.30) Estimat Glomerular Filtration Rate mL/min (>60) Glucose Level 86 MG/DL (74-106) Calcium Level 8.8 MG/DL (8.5-10.1) Magnesium Level 1.8 MG/DL (1.8-2.4) Current Medications Medications (Trade) Dose Ordered Sig/Antionette Route PRN Reason Start Time Stop Time Status Last Admin Dose Admin Acetaminophen (Tylenol) 650 mg Q4H PRN ORAL fever 03/28/17 13:15 04/27/17 13:14 Al Hydroxide/Mg Hydroxide (Mylanta II) 30 ml Q6H PRN ORAL dyspepsia 03/28/17 13:15 04/27/17 13:14 Allopurinol (Allopurinol) 300 mg DAILY ORAL 03/29/17 09:00 04/28/17 08:59 04/05/17 09:13 Amlodipine Besylate (Norvasc) 5 mg DAILY ORAL 03/29/17 09:00 04/28/17 08:59 04/05/17 09:14 Aspirin (Ecotrin) 81 mg DAILY ORAL 03/29/17 09:00 04/28/17 08:59 04/05/17 09:14 Atorvastatin Calcium (Lipitor) 20 mg BEDTIME ORAL 03/28/17 21:00 04/27/17 20:59 04/04/17 20:33 Clonidine HCl (Catapres) 0.1 mg Q8H PRN ORAL sbp>170 03/28/17 13:15 04/27/17 13:14 Dextrose (Dextrose 50%) STAT PRN IV Hypoglycemia 03/28/17 13:15 04/27/17 13:14 Diphenhydramine HCl (Benadryl) 25 mg Q6H PRN ORAL Itching/Pruritis 03/28/17 13:15 04/27/17 13:14 Diphenoxylate HCl/ Atropine (Lomotil) 2.5 mg Q4H PRN ORAL Diarrhea 03/31/17 11:00 04/30/17 10:59 04/04/17 17:34 Dronabinol (Marinol) 5 mg BID ORAL 03/28/17 18:00 04/27/17 17:59 04/05/17 09:13 Finasteride (Proscar) 5 mg DAILY ORAL 03/29/17 09:00 04/28/17 08:59 04/05/17 09:13 Magnesium Oxide (Mag-Ox 400mg) 400 mg THREE TIMES A DAY ORAL 04/01/17 13:00 05/01/17 12:59 04/05/17 09:13 Metoclopramide HCl (Reglan) 10 mg Q6H PRN IVP severe nausea 03/28/17 13:15 04/27/17 13:14 Metoprolol Tartrate (Lopressor) 25 mg Q12HR ORAL 03/28/17 21:00 04/27/17 20:59 04/05/17 09:13 Morphine Sulfate (Morphine 10mg/ 5ml Oral Soln) 6 mg Q4H PRN ORAL Severe Pain (Pain Scale 7-10) 03/31/17 16:15 04/07/17 16:14 Nitroglycerin (Ntg) 0.4 mg Q5M X 3 DOSES PRN SL Prn Chest Pain 03/28/17 13:15 04/27/17 13:14 Nortriptyline HCl (Pamelor) 25 mg QHS ORAL 03/28/17 21:00 04/27/17 20:59 04/04/17 20:33 Ondansetron HCl (Zofran) 4 mg Q6H PRN IVP Nausea & Vomiting 03/28/17 13:15 04/27/17 13:14 Pantoprazole (Protonix) 40 mg DAILY ORAL 04/03/17 09:00 05/03/17 08:59 04/05/17 09:14 Polyethylene Glycol (Miralax) 17 gm HSPRN PRN ORAL Constipation 03/28/17 13:15 04/27/17 13:14 Pregabalin (Lyrica) 75 mg BIDPRN PRN ORAL nerve pain 03/28/17 13:15 04/27/17 13:14 Promethazine HCl (Phenergan) 25 mg Q8H PRN IV refractory nausea 03/28/17 13:15 04/27/17 13:14 Tamsulosin HCl (Flomax) 0.4 mg BID ORAL 03/28/17 18:00 04/27/17 17:59 04/05/17 09:13 Vancomycin HCl (Vancomycin) 125 mg FOUR TIMES A DAY ORAL 03/29/17 13:00 04/12/17 12:59 04/05/17 12:29 SRIKANTH ANAND M.D. Apr 05, 2017 13:31
--- NOTE | 2017-04-05 14:07 | Pulmonology Progress Note ---
Assessment/Plan Problems: (1) C. difficile colitis (2) Abdominal pain (3) CAD (coronary artery disease) (4) Diarrhea Assessment/Plan improving symptomatic treatment check electrolytess iv fluid all notes and meds reviewed dc when ok with consultants Subjective ROS Limited/Unobtainable: No Constitutional: Reports: no symptoms HEENT: Repors: no symptoms Respiratory: Reports: no symptoms Cardiovascular: Reports: no symptoms Allergies: Coded Allergies: No Known Allergies (Unverified , 04/23/13) Objective Last 24 Hour Vital Signs Date Time Temp Pulse Resp B/P (MAP) Pulse Ox O2 Delivery O2 Flow Rate FiO2 04/05/17 12:16 97.7 69 18 93/53 98 Room Air 04/05/17 09:14 72 108/55 04/05/17 09:13 72 108/55 04/05/17 08:25 97.9 72 18 108/55 100 Room Air 04/04/17 20:33 73 118/60 04/04/17 19:30 97.2 73 20 118/60 99 04/04/17 16:05 97.0 65 18 118/51 100 Room Air General Appearance: WD/WN HEENT: normocephalic, atraumatic Respiratory/Chest: chest wall non-tender, lungs clear Cardiovascular: normal peripheral pulses, normal rate Extremities: no cyanosis, no clubbing Neurologic/Psychiatric: 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 II-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 grossly normal, no motor/sensory deficits Laboratory Tests 04/05/17 04:55: White Blood Count 6.3, Red Blood Count 3.29L, Hemoglobin 10.9L, Hematocrit 32.8L , Mean Corpuscular Volume 100H, Mean Corpuscular Hemoglobin 33.2H, Mean Corpuscular Hemoglobin Concent 33.3, Red Cell Distribution Width 15.1H, Platelet Count 161, Mean Platelet Volume 8.6, Neutrophils (%) (Auto) 66.3, Lymphocytes (%) (Auto) 16.8L, Monocytes (%) (Auto) 12.2H, Eosinophils (%) (Auto ) 3.0, Basophils (%) (Auto) 1.7, Sodium Level 140, Potassium Level 4.6, Chloride Level 109H, Carbon Dioxide Level 17L, Anion Gap 14, Blood Urea Nitrogen 14, Creatinine 1.2, Estimat Glomerular Filtration Rate , Glucose Level 86, Calcium Level 8.8, Magnesium Level 1.8 Current Medications Medications (Trade) Dose Ordered Sig/Antionette Route PRN Reason Start Time Stop Time Status Last Admin Dose Admin Acetaminophen (Tylenol) 650 mg Q4H PRN ORAL fever 03/28/17 13:15 04/27/17 13:14 Al Hydroxide/Mg Hydroxide (Mylanta II) 30 ml Q6H PRN ORAL dyspepsia 03/28/17 13:15 04/27/17 13:14 Allopurinol (Allopurinol) 300 mg DAILY ORAL 03/29/17 09:00 04/28/17 08:59 04/05/17 09:13 Amlodipine Besylate (Norvasc) 5 mg DAILY ORAL 03/29/17 09:00 04/28/17 08:59 04/05/17 09:14 Aspirin (Ecotrin) 81 mg DAILY ORAL 03/29/17 09:00 04/28/17 08:59 04/05/17 09:14 Atorvastatin Calcium (Lipitor) 20 mg BEDTIME ORAL 03/28/17 21:00 04/27/17 20:59 04/04/17 20:33 Clonidine HCl (Catapres) 0.1 mg Q8H PRN ORAL sbp>170 03/28/17 13:15 04/27/17 13:14 Dextrose (Dextrose 50%) STAT PRN IV Hypoglycemia 03/28/17 13:15 04/27/17 13:14 Diphenhydramine HCl (Benadryl) 25 mg Q6H PRN ORAL Itching/Pruritis 03/28/17 13:15 04/27/17 13:14 Diphenoxylate HCl/ Atropine (Lomotil) 2.5 mg Q4H PRN ORAL Diarrhea 03/31/17 11:00 04/30/17 10:59 04/04/17 17:34 Dronabinol (Marinol) 5 mg BID ORAL 03/28/17 18:00 04/27/17 17:59 04/05/17 09:13 Finasteride (Proscar) 5 mg DAILY ORAL 03/29/17 09:00 04/28/17 08:59 04/05/17 09:13 Magnesium Oxide (Mag-Ox 400mg) 400 mg THREE TIMES A DAY ORAL 04/01/17 13:00 05/01/17 12:59 04/05/17 09:13 Metoclopramide HCl (Reglan) 10 mg Q6H PRN IVP severe nausea 03/28/17 13:15 04/27/17 13:14 Metoprolol Tartrate (Lopressor) 25 mg Q12HR ORAL 03/28/17 21:00 04/27/17 20:59 04/05/17 09:13 Morphine Sulfate (Morphine 10mg/ 5ml Oral Soln) 6 mg Q4H PRN ORAL Severe Pain (Pain Scale 7-10) 03/31/17 16:15 04/07/17 16:14 Nitroglycerin (Ntg) 0.4 mg Q5M X 3 DOSES PRN SL Prn Chest Pain 03/28/17 13:15 04/27/17 13:14 Nortriptyline HCl (Pamelor) 25 mg QHS ORAL 03/28/17 21:00 04/27/17 20:59 04/04/17 20:33 Ondansetron HCl (Zofran) 4 mg Q6H PRN IVP Nausea & Vomiting 03/28/17 13:15 04/27/17 13:14 Pantoprazole (Protonix) 40 mg DAILY ORAL 04/03/17 09:00 05/03/17 08:59 04/05/17 09:14 Polyethylene Glycol (Miralax) 17 gm HSPRN PRN ORAL Constipation 03/28/17 13:15 04/27/17 13:14 Pregabalin (Lyrica) 75 mg BIDPRN PRN ORAL nerve pain 03/28/17 13:15 04/27/17 13:14 Promethazine HCl (Phenergan) 25 mg Q8H PRN IV refractory nausea 03/28/17 13:15 04/27/17 13:14 Tamsulosin HCl (Flomax) 0.4 mg BID ORAL 03/28/17 18:00 04/27/17 17:59 04/05/17 09:13 Vancomycin HCl (Vancomycin) 125 mg FOUR TIMES A DAY ORAL 03/29/17 13:00 04/12/17 12:59 04/05/17 12:29 GOLDEN LIM Apr 05, 2017 14:07
--- NOTE | 2017-04-07 17:17 | Discharge Summary ---
Discharge Summary Hospital Course Date of Admission Mar 28, 2017 at 11:36 Date of Discharge Apr 05, 2017 at 14:35 Admitting Diagnosis DEHYDRATION, ABDOMINAL PAIN HPI Alex Echols is a 76 year old male who was admitted on Mar 28, 2017 at 11: 36 for Dehydration,Abdominal Pain Hospital Course [id number] Discharge Discharge Disposition Patient was discharged to [facility] (01) Discharge Diagnoses: Lisa Corona NP Apr 07, 2017 17:17
--- NOTE | 2017-04-07 17:17 | Discharge Summary ---
Discharge Summary Hospital Course Date of Admission Mar 28, 2017 at 11:36 Date of Discharge Apr 05, 2017 at 14:35 Admitting Diagnosis DEHYDRATION, ABDOMINAL PAIN HPI Alex Echols is a 76 year old male who was admitted on Mar 28, 2017 at 11: 36 for Dehydration,Abdominal Pain Hospital Course [id number] Discharge Discharge Disposition Patient was discharged to [facility] (01) Discharge Diagnoses: Lisa Corona NP Apr 07, 2017 17:17
--- NOTE | 2017-04-07 17:17 | Discharge Summary ---
Discharge Summary Hospital Course Date of Admission Mar 28, 2017 at 11:36 Date of Discharge Apr 05, 2017 at 14:35 Admitting Diagnosis DEHYDRATION, ABDOMINAL PAIN HPI Alex Echols is a 76 year old male who was admitted on Mar 28, 2017 at 11: 36 for Dehydration,Abdominal Pain Hospital Course [id number] Discharge Discharge Disposition Patient was discharged to [facility] (01) Discharge Diagnoses: Lisa Corona NP Apr 07, 2017 17:17
--- NOTE | 2017-04-08 01:15 | Discharge Summary 2 SIG ---
DATE OF ADMISSION: 03/28/2017 DATE OF DISCHARGE: 04/05/2017 CONSULTANTS: 1. Riley Ramey M.D. 2. Bill Flores M.D. 3. Marilou Garcia M.D. BRIEF HOSPITAL COURSE: The patient is a 76-year-old male with history of multiple myeloma currently undergoing chemotherapy for three years and history of amyloidosis of the GI tract presented to ED complaining of abdominal pain and diarrhea. He has been having multiple bouts of abdominal pain and diarrhea for three days. Pain started gradually, located to the left lower quadrant, but nonradiating, sharp and burning in nature and was intermittent. There was no vomiting, however, he reported 10 episodes of nonbloody watery diarrhea per day. On evaluation at ED, the patient was weak, unable to tolerate p.o. He was given IV hydration. CT of the abdomen and pelvis showed no acute process with presence of small sliding type hiatal hernia. EKG was in normal sinus rhythm with PACs. Chest x-ray showed no acute cardiopulmonary disease. No consolidation, effusion, or pneumothorax. Platelet was 69. Hemoglobin was 12. He was admitted to medical floor for dehydration and abdominal pain. Creatinine was 1.5, BUN was 25. He was given p.o. vancomycin b.i.d. Stool was checked for pathogens given the patient's immunocompromised state. He was given low residual/fiber/lactose free diet and Lomotil p.r.n. Stool culture was positive for C diff. There was no Salmonella, Shigella or Campylobacter isolated. Giardia antigen was negative. Cryptosporidium, Isospora, and microsporidial results still pending. Diarrhea improved with vancomycin. He was then discharged back to [facility] [place] [facility]. FINAL DIAGNOSES: 1. Diarrhea due to Clostridium difficile colitis. 2. Immunocompromised state. 3. Multiple myeloma, on chemotherapy. 4. Gastrointestinal tract amyloidosis. 5. Hypertension. 6. Long history of prostate carcinoma, status post transurethral resection of prostate. 7. Coronary artery disease, status post coronary artery bypass graft. 8. Chemotherapy-induced diarrhea. 9. Benign prostatic hypertrophy. 10. GI amyloidosis. DISPOSITION: The patient was discharged to [facility]. DISCHARGE MEDICATIONS: Refer list. Continue with vancomycin 125 mg p.o. b.i.d. for seven more days. Jovani Villagomez M.D. I have been assigned to dictate discharge summary on this account and I was not involved in the patient's management. Lisa Corona N.P. DR: Carissa JOB#: [id number] CC: SELINA
--- NOTE | 2017-04-08 01:15 | Discharge Summary 2 SIG ---
DATE OF ADMISSION: 03/28/2017 DATE OF DISCHARGE: 04/05/2017 CONSULTANTS: 1. Riley Ramey M.D. 2. Bill Flores M.D. 3. Marilou Garcia M.D. BRIEF HOSPITAL COURSE: The patient is a 76-year-old male with history of multiple myeloma currently undergoing chemotherapy for three years and history of amyloidosis of the GI tract presented to ED complaining of abdominal pain and diarrhea. He has been having multiple bouts of abdominal pain and diarrhea for three days. Pain started gradually, located to the left lower quadrant, but nonradiating, sharp and burning in nature and was intermittent. There was no vomiting, however, he reported 10 episodes of nonbloody watery diarrhea per day. On evaluation at ED, the patient was weak, unable to tolerate p.o. He was given IV hydration. CT of the abdomen and pelvis showed no acute process with presence of small sliding type hiatal hernia. EKG was in normal sinus rhythm with PACs. Chest x-ray showed no acute cardiopulmonary disease. No consolidation, effusion, or pneumothorax. Platelet was 69. Hemoglobin was 12. He was admitted to medical floor for dehydration and abdominal pain. Creatinine was 1.5, BUN was 25. He was given p.o. vancomycin b.i.d. Stool was checked for pathogens given the patient's immunocompromised state. He was given low residual/fiber/lactose free diet and Lomotil p.r.n. Stool culture was positive for C diff. There was no Salmonella, Shigella or Campylobacter isolated. Giardia antigen was negative. Cryptosporidium, Isospora, and microsporidial results still pending. Diarrhea improved with vancomycin. He was then discharged back to [facility]. FINAL DIAGNOSES: 1. Diarrhea due to Clostridium difficile colitis. 2. Immunocompromised state. 3. Multiple myeloma, on chemotherapy. 4. Gastrointestinal tract amyloidosis. 5. Hypertension. 6. Long history of prostate carcinoma, status post transurethral resection of prostate. 7. Coronary artery disease, status post coronary artery bypass graft. 8. Chemotherapy-induced diarrhea. 9. Benign prostatic hypertrophy. 10. GI amyloidosis. DISPOSITION: The patient was discharged to [facility]. DISCHARGE MEDICATIONS: Refer list. Continue with vancomycin 125 mg p.o. b.i.d. for seven more days. Jovani Villagomez M.D. I have been assigned to dictate discharge summary on this account and I was not involved in the patient's management. Lisa Corona N.P. DR: Carissa JOB#: [id number] CC: SELINA
== END 2017-04-05 14:35 | DRG 372 ==
LOC: EDBD 08:41 → EMR 09:15 → EDBEDREQ 11:10 → 4W 11:36 → EDBEDREQ 11:52
DX: A04.72 Enterocolitis due to Clostridium difficile, not specified as recurrent (principal); C90.00 Multiple myeloma not having achieved remission; E85.89 Other amyloidosis; K52.1 Toxic gastroenteritis and colitis; E86.0 Dehydration; D69.6 Thrombocytopenia, unspecified; I10 Essential (primary) hypertension; I25.10 Atherosclerotic heart disease of native coronary artery without angina pectoris; N40.0 Benign prostatic hyperplasia without lower urinary tract symptoms; Z79.899 Other long term (current) drug therapy; D63.8 Anemia in other chronic diseases classified elsewhere; Z85.46 Personal history of malignant neoplasm of prostate; Z95.1 Presence of aortocoronary bypass graft; T45.1X5A Adverse effect of antineoplastic and immunosuppressive drugs, initial encounter; K44.9 Diaphragmatic hernia without obstruction or gangrene
CPT/HCPCS: 36415; 71010; 74177; 76700; 80048; 80053; 82150; 82248; 82306; 82550; 82553; 82607; 82746; 83605; 83690; 83735; 84100; 84484; 85007; 85025; 85610; 85651; 85730; 86140; 86999; 87015; 87040; 87045; 87207; 87324; 87329; 93005; 99285; J8499

== ENCOUNTER 2017-04-12 10:40 | Inpatient (IN) | payer MEDICARE, OTHER ==
[~2017-04-12] VITALS: Ht 185.4 cm; Wt 89.4 kg
[2017-04-12 10:40] VITALS: BP 138/53
[~2017-04-12 10:40] MED LIST changes: +MAGOX 400400 MG ORAL; +PROTONIX40 MG ORAL
[2017-04-12] MEDS ORDERED: LIPITOR80 MG ORAL (10:44)
[2017-04-12] MEDS ORDERED: TERAZOSIN HCL10 MG ORAL (10:44)
[2017-04-12] MEDS ORDERED: DIOVAN80 MG ORAL (10:44)
[2017-04-12 12:30] VITALS: BP 133/87
[2017-04-12 12:34] LABS: EOSINOPHILS % (AUTO) 2.3 % (0.0-3.0); LYMPHOCYTES % (AUTO) 11.2 % (20.0-45.0); MEAN CORPUSCULAR HGB CONC 33.2 G/DL (32.0-36.0); MEAN CORPUSCULAR VOLUME 100 FL (80-99); MEAN PLATELET VOLUME 6.4 FL (6.5-10.1); MONOCYTES % (AUTO) 13.7 % (1.0-10.0); NEUTROPHILS % (AUTO) 70.9 % (45.0-75.0); PLATELET COUNT 146 K/UL (150-450); RED BLOOD COUNT 3.26 M/UL (4.70-6.10); RED CELL DISTRIBUTION WIDTH 14.9 % (11.6-14.8); WHITE BLOOD COUNT 5.4 K/UL (4.8-10.8)
[2017-04-12 12:41] LABS: APPEARANCE,URINE TURBID; KETONES,URINE NEGATIVE (NEGATIVE); LEUKOCYTE ESTERASE ,URINE 3+ (NEGATIVE); NITRITE,URINE NEGATIVE (NEGATIVE); PH,URINE 5 (4.5-8.0); PROTEIN,URINE 1+ (NEGATIVE); UROBILINOGEN,URINE NORMAL MG/DL (0.0-1.0)
[2017-04-12 12:53] LABS: ALANINE AMINOTRANSFERASE 25 U/L (12-78); ALBUMIN/GLOBULIN RATIO 1.2 (1.0-2.7); ANION GAP 10 mmol/L (5-15); ASPARTATE AMINO TRANSFERASE 18 U/L (15-37); CALCIUM 9.1 MG/DL (8.5-10.1); CARBON DIOXIDE 23 MMOL/L (21-32); CHLORIDE 109 MMOL/L (98-107); CREATININE 1.2 MG/DL (0.55-1.30); POTASSIUM 3.9 MMOL/L (3.5-5.1); SODIUM 142 MMOL/L (136-145); TOTAL PROTEIN 6.3 G/DL (6.4-8.2)
[2017-04-12 12:57] LABS: BILIRUBIN,DIRECT 0.2 MG/DL (0.0-0.3); LIPASE 112 U/L (73-393)
[2017-04-12 13:01] LABS: BACTERIA,URINE MANY /HPF; SQUAMOUS EPITHELIAL CELL,UR FEW /LPF (NONE/OCC); WBC,URINE TNTC /HPF (0 - 0)
[2017-04-12 14:00] VITALS: BP 129/85
[2017-04-12] MEDS ORDERED: cefTRIAXone 1 GM in NS 55 ML IVPB ONE (14:30)
--- NOTE | 2017-04-12 14:48 | Emergency Room Report ---
History of Present Illness General Chief Complaint: Abdominal Pain Source: Patient Present Illness HPI This patient was discharged from this hospital 4 days ago. He had been admitted for C. difficile colitis. He has been taking the prescribed antibiotics. He states that his stool has been more [place] and does not have diarrhea. He denies fever or chills. He presents for ongoing the left lower quadrant abdominal pain. He denies dysuria or hematuria. He has no other complaints. Allergies: Coded Allergies: No Known Allergies (Unverified , 04/23/13) Patient History Past Medical History: see triage record, old chart reviewed, HTN, NM, CAD, GERD , renal disease Past Surgical History: CABG, appy Social History: Denies: smoking, alcohol use, drug use Reviewed Nursing Documentation: PMH: Agreed, PSxH: Agreed Nursing Documentation-PMH Hx Cardiac Problems: Yes Hx Hypertension: Yes Hx Pacemaker: No - C-DIFF,MYELOMA,CA Hx Asthma: No Hx COPD: No Hx Diabetes: No Hx Cancer: Yes Hx Gastrointestinal Problems: Yes Hx Dialysis: No Hx Neurological Problems: No Hx Cerebrovascular Accident: No Hx Seizures: No Hx Dizziness: No Hx Syncope: No Hx Headaches: No Review of Systems All Other Systems: negative except mentioned in HPI Physical Exam Vital Signs Date Time Temp Pulse Resp B/P (MAP) Pulse Ox O2 Delivery O2 Flow Rate FiO2 04/12/17 10:36 98.1 84 16 128/67 98 Room Air Sp02 EP Interpretation: reviewed, normal General Appearance: no apparent distress, alert, GCS 15, non-toxic Head: normocephalic, atraumatic Eyes: bilateral eye normal inspection, bilateral eye PERRL ENT: hearing grossly normal, normal pharynx, no angioedema, normal voice Neck: full range of motion, supple/symm/no masses Respiratory: chest non-tender, lungs clear, normal breath sounds, speaking full sentences Cardiovascular #1: no edema, tachycardia Gastrointestinal: normal bowel sounds, soft, non-distended, no guarding, no rebound, tenderness - LLQ Rectal: deferred Musculoskeletal: back normal, normal range of motion, non-tender Neurologic: alert, oriented x3, responsive, motor strength/tone normal, sensory intact, speech normal Psychiatric: judgement/insight normal, memory normal, mood/affect normal, no suicidal/homicidal ideation Skin: normal color, no rash, warm/dry, well hydrated Medical Decision Making Diagnostic Impression: Primary Impression: Pyelonephritis Additional Impression: Clostridium difficile colitis ER Course This patient has pyelonephritis. He also has a recent history of C. difficile colitis and is on ongoing treatment for this. The patient has had improvement in his stool consistency. He does have too numerous to count white blood cells in his urine. He was given broad-spectrum antibiotics IV and admitted for further evaluation, treatment and monitoring. Laboratory Tests Test 04/12/17 12:12 White Blood Count 5.4 K/UL (4.8-10.8) Red Blood Count 3.26 M/UL (4.70-6.10) L Hemoglobin 10.8 G/DL (14.2-18.0) L Hematocrit 32.4 % (42.0-52.0) L Mean Corpuscular Volume 100 FL (80-99) H Mean Corpuscular Hemoglobin 33.0 PG (27.0-31.0) H Mean Corpuscular Hemoglobin Concent 33.2 G/DL (32.0-36.0) Red Cell Distribution Width 14.9 % (11.6-14.8) H Platelet Count 146 K/UL (150-450) L Mean Platelet Volume 6.4 FL (6.5-10.1) L Neutrophils (%) (Auto) 70.9 % (45.0-75.0) Lymphocytes (%) (Auto) 11.2 % (20.0-45.0) L Monocytes (%) (Auto) 13.7 % (1.0-10.0) H Eosinophils (%) (Auto) 2.3 % (0.0-3.0) Basophils (%) (Auto) 2.0 % (0.0-2.0) Urine Color Yellow Urine Appearance Turbid Urine pH 5 (4.5-8.0) Urine Specific [place] 1.020 (1.005-1.035) Urine Protein 1+ (NEGATIVE) H Urine Glucose (UA) Negative (NEGATIVE) Urine Ketones Negative (NEGATIVE) Urine Occult Blood 2+ (NEGATIVE) H Urine Nitrite Negative (NEGATIVE) Urine Bilirubin Negative (NEGATIVE) Urine Urobilinogen Normal MG/DL (0.0-1.0) Urine Leukocyte Esterase 3+ (NEGATIVE) H Urine RBC 5-10 /HPF (0 - 0) H Urine WBC Tntc /HPF (0 - 0) H Urine Squamous Epithelial Cells Few /LPF (NONE/OCC) Urine Bacteria Many /HPF (NONE) H Sodium Level 142 MMOL/L (136-145) Potassium Level 3.9 MMOL/L (3.5-5.1) Chloride Level 109 MMOL/L (98-107) H Carbon Dioxide Level 23 MMOL/L (21-32) Anion Gap 10 mmol/L (5-15) Blood Urea Nitrogen 9 mg/dL (7-18) Creatinine 1.2 MG/DL (0.55-1.30) Estimate Glomerular Filtration Rate mL/min (>60) Glucose Level 93 MG/DL (74-106) Calcium Level 9.1 MG/DL (8.5-10.1) Total Bilirubin 1.2 MG/DL (0.2-1.0) H Direct Bilirubin 0.2 MG/DL (0.0-0.3) Aspartate Amino Transferase (AST) 18 U/L (15-37) Alanine Aminotransferase (ALT) 25 U/L (12-78) Alkaline Phosphatase 99 U/L (46-116) Total Protein 6.3 G/DL (6.4-8.2) L Albumin 3.5 G/DL (3.4-5.0) Globulin 2.8 g/dL Albumin/Globulin Ratio 1.2 (1.0-2.7) Lipase 112 U/L (73-393) Last Vital Signs Date Time Temp Pulse Resp B/P (MAP) Pulse Ox O2 Delivery O2 Flow Rate FiO2 04/12/17 12:30 77 18 133/87 100 Room Air 04/12/17 10:36 98.1 Disposition: ADMITTED INPATIENT Condition: Stable Referrals: Jovani Villagomez MD (PCP) MIL MATUTE D.O. Apr 12, 2017 14:48
[2017-04-12] MEDS ORDERED: Tubing IV Cassette IV ONE (15:14)
[2017-04-12] MEDS ORDERED: NS 55 ML IV ONE (15:14)
[2017-04-12] MEDS ORDERED: Metoclopramide 10mg/2ml Inj IVP PRN (15:45)
[2017-04-12] MEDS ORDERED: LORazepam Inj 2mg/ml 1ml IV PRN (15:45)
[2017-04-12] MEDS ORDERED: Miralax 17gm pkt ORAL PRN (15:45)
[2017-04-12] MEDS ORDERED: Nitroglycerin Subl 0.4mg tab SL PRN (15:45)
[2017-04-12] MEDS ORDERED: Mylanta II UD 30ml ORAL PRN (15:45)
[2017-04-12] MEDS ORDERED: Lomotil 2.5mg tab ORAL PRN (16:15)
[2017-04-12] MEDS: D5 1/2NS 1,000 ML IV SCH (17:40)
[2017-04-12] MEDS: Tamsulosin 0.4mg cap ORAL SCH (17:45)
[2017-04-12] MEDS: Dronabinol 2.5mg Cap ORAL SCH (17:45)
[2017-04-12 17:56] VITALS: BP 155/84
--- NOTE | 2017-04-12 19:15 | History & Physical ---
History and Physical History & Physicial Dictated for Int Med-Dr Villagomez no. [id number]. ELLY ELIAS Apr 12, 2017 19:15
[2017-04-12 20:00] VITALS: BP 141/67
[2017-04-12] MEDS ORDERED: Flu Vaccine Quadrivalent 0.5ml IM ONE (20:00)
[2017-04-12] MEDS: Nortriptyline 25mg cap ORAL SCH (20:51)
[2017-04-12] MEDS: Metoprolol 25mg tab ORAL SCH (20:52)
[2017-04-12] MEDS: Atorvastatin 80mg tab ORAL SCH (20:52)
[2017-04-12] MEDS: Heparin 5000 units/ml inj SUBQ SCH (20:58)
--- NOTE | 2017-04-12 21:15 | History and Physical Report ---
DATE OF ADMISSION: 04/12/2017 CHIEF COMPLAINT: The patient is a 76-year-old male, who presents with chief complaint of abdominal pain. HISTORY OF PRESENT ILLNESS: The patient was admitted to [facility] from 03/28/2017 to 04/05/2017. The patient was diagnosed with Clostridium difficile colitis at that time. The patient was discharged home on oral vancomycin. The patient presented to [place] emergency room with complaint of left lower quadrant pain. The patient was admitted for left lower quadrant pain to rule out continued Clostridium difficile colitis. PAST MEDICAL HISTORY: Significant for: 1. Multiple myeloma diagnosed 3 years previously. The patient is followed as an outpatient by Dr. Al. 2. Hypertension. 3. Anemia of chronic disease. 4. History of prostate cancer. 5. History of coronary artery disease. 6. Amyloidosis of the gastrointestinal tract. PAST SURGICAL HISTORY: Significant for: 1. Perforated appendix with exploratory laparotomy and subsequent intra-abdominal abscess in May 2015. 2. Prostatectomy in 2012. 3. Coronary artery bypass graft. CURRENT MEDICATIONS: 1. Acyclovir 400 mg one tablet p.o. twice daily. 2. Allopurinol 300 mg one tablet p.o. at bedtime. 3. Amlodipine 5 mg one tablet p.o. daily. 4. Aspirin 81 mg one tablet p.o. daily. 5. Lipitor 80 mg one tablet p.o. daily. 6. Clonidine 0.1 mg one tablet p.o. q.8 h. p.r.n. 7. Lomotil one tablet p.o. q.6 h. p.r.n. 8. Marinol 5 mg one tablet p.o. twice daily. 9. Iron sulfate 325 mg one tablet p.o. daily. 10. Finasteride 5 mg one tablet p.o. daily. 11. Magnesium oxide 400 mg one tablet p.o. three times daily. 12. Metoprolol 25 mg one tablet p.o. twice daily. 13. Nortriptyline 25 mg one tablet p.o. at bedtime. 14. Protonix 40 mg one tablet p.o. daily. 15. Lyrica 75 mg one tablet p.o. twice daily. 16. Zantac 150 mg one tablet p.o. at bedtime. 17. Flomax 0.4 mg one tablet p.o. twice daily. 18. Terazosin 10 mg one tablet p.o. daily. 19. Thalidomide 50 mg one tablet p.o. daily. 20. Diovan 80 mg one tablet p.o. daily. 21. Vancomycin 125 mg p.o. twice daily. ALLERGIES: No known drug allergies. SOCIAL HISTORY: The patient is a and lives at [facility]. The patient denies tobacco or alcohol use. REVIEW OF SYSTEMS: CONSTITUTIONAL: The patient denies weight loss or weight gain. The patient denies fevers or chills. HEENT: The patient denies ear or throat pain. The patient denies headaches. CARDIOVASCULAR: The patient denies palpitations or chest pain. CHEST: The patient denies wheeze or shortness of breath. ABDOMINAL: The patient complains of left lower quadrant pain. The patient denies nausea, vomiting, diarrhea, or constipation. GENITOURINARY: The patient denies dysuria or increased frequency of urination. NEUROMUSCULAR: The patient denies seizures or generalized weakness. PHYSICAL EXAMINATION: VITAL SIGNS: Temperature 98.1, respirations 16, pulse 84, and blood pressure 128/67. GENERAL: The patient is a well-developed and well-nourished male, in no apparent distress. HEENT: Eyes, pupils are equal and responsive to light and accommodation. Extraocular movements are intact. NECK: Supple without lymphadenopathy. CHEST: Lungs are clear to auscultation bilaterally without wheezes or rales. CARDIOVASCULAR: Regular rhythm and rate. S1 and S2 are normal without murmurs, rubs, or gallops. ABDOMEN: Soft, nondistended with positive bowel sounds. There is pain to palpation in the left lower quadrant. There is no rebound or guarding noted. EXTREMITIES: Negative for clubbing, cyanosis, or edema. RECTAL: Refused. GENITAL: Refused. NEUROLOGIC: Cranial nerves II to XII are grossly intact without focal deficits. Motor strength is 5/5 bilaterally. Deep tendon reflexes are 2+ plantar. LABORATORY STUDIES: WBC 5.4, hemoglobin 10.8, hematocrit 32.4, and platelets 146,000. Sodium 142, potassium 3.9, chloride 109, CO2 23, BUN 9, creatinine 1.2, and glucose 93. ASSESSMENT: This is a 76-year-old male: 1. Left lower quadrant pain. 2. Clostridium difficile colitis. 3. Amyloidosis of the gastrointestinal tract. 4. Multiple myeloma. 5. Hypertension. 6. Anemia. 7. Coronary artery disease. TREATMENT: 1. Abdominal pain/Clostridium difficile colitis. Continue vancomycin as above. An Infectious Disease consultation has been obtained with Dr. Ramey. A Gastroenterology consultation has been obtained with Dr. Bill Flores. Abdominal pain may be secondary to Clostridium difficile colitis versus amyloidosis. 2. Multiple myeloma. The patient is followed as an outpatient by Dr. Al. 3. Hypertension. Continue metoprolol and amlodipine as above. 4. Anemia. 5. History of coronary artery disease. Mando Schilling M.D. DR: ENOC JOB#: [id number] CC:
[2017-04-13] VITALS: BP 136/63
[2017-04-13] MEDS: D5 1/2NS 1,000 ML IV SCH ×2 (06:28→21:21)
[2017-04-13 06:40] LABS: BASOPHILS % (AUTO) 3.1 % (0.0-2.0); EOSINOPHILS % (AUTO) 0.8 % (0.0-3.0); LYMPHOCYTES % (AUTO) 4.2 % (20.0-45.0); MEAN CORPUSCULAR HEMOGLOBIN 33.7 PG (27.0-31.0); MEAN CORPUSCULAR HGB CONC 33.1 G/DL (32.0-36.0); MEAN CORPUSCULAR VOLUME 102 FL (80-99); MEAN PLATELET VOLUME 6.5 FL (6.5-10.1); MONOCYTES % (AUTO) 10.1 % (1.0-10.0); NEUTROPHILS % (AUTO) 81.8 % (45.0-75.0); PLATELET COUNT 131 K/UL (150-450); RED BLOOD COUNT 3.07 M/UL (4.70-6.10); RED CELL DISTRIBUTION WIDTH 15.9 % (11.6-14.8); WHITE BLOOD COUNT 6.3 K/UL (4.8-10.8)
[2017-04-13 07:01] LABS: ALANINE AMINOTRANSFERASE 24 U/L (12-78); ALBUMIN/GLOBULIN RATIO 1.2 (1.0-2.7); ANION GAP 9 mmol/L (5-15); ASPARTATE AMINO TRANSFERASE 16 U/L (15-37); CALCIUM 8.9 MG/DL (8.5-10.1); CARBON DIOXIDE 25 MMOL/L (21-32); CHLORIDE 107 MMOL/L (98-107); CREATININE 1.2 MG/DL (0.55-1.30); POTASSIUM 4.2 MMOL/L (3.5-5.1); SODIUM 141 MMOL/L (136-145); TOTAL PROTEIN 5.9 G/DL (6.4-8.2)
[2017-04-13 07:07] LABS: AMYLASE 78 U/L (25-115); BILIRUBIN,DIRECT 0.2 MG/DL (0.0-0.3); LIPASE 85 U/L (73-393)
[2017-04-13 07:58] VITALS: BP 113/71
[2017-04-13] MEDS ORDERED: Pantoprazole Inj IV SCH (09:00)
[2017-04-13] MEDS: Allopurinol 100mg Tab ORAL SCH (09:33)
[2017-04-13] MEDS: Metoprolol 25mg tab ORAL SCH ×2 (09:34→21:21)
[2017-04-13] MEDS: Tamsulosin 0.4mg cap ORAL SCH ×2 (09:34→18:35)
[2017-04-13] MEDS: Heparin 5000 units/ml inj SUBQ SCH ×2 (09:35→21:00)
[2017-04-13] MEDS: Dronabinol 2.5mg Cap ORAL SCH ×2 (09:35→18:35)
[2017-04-13 11:32] VITALS: BP 122/69
--- NOTE | 2017-04-13 11:43 | GI Initial Consult Note ---
Chanel,Domenica Naga N.PViv 04/13/17 1143: History of Present Illness General Date patient seen: Apr 13, 2017 Time patient seen: 11:29 Reason for Hospitalization: Abdominal Pain Referring physician: JASON REYES Reason for Consultation: CDIFF Present Illness HPI This patient was discharged from this hospital 4 days ago. He had been admitted for C. difficile colitis. He has been taking the prescribed antibiotics. He states that his stool has been more [place] and does not have diarrhea. He denies fever or chills. He presents for ongoing the left lower quadrant abdominal pain. He denies dysuria or hematuria. He has no other complaints. GI consulted for cdiff. HPI as noted above. Pt seen on floor, awake A&Ox4 NAD with no active s/sx of N/V. Patient receives chemotherapy q for the last 3 years. Denies any hematochezia or melena at this time. 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 He presents today mild anemia. CT AP from previous admission unremarkable. 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, colon - biopsied VIOLA FOSTER - Jan 08, 2016 09:31 Home Meds Active Scripts Diphenoxylate Hcl/Atropine (LOMOTIL TABLET) 1 Each Tablet, 5 MG ORAL TID, #1 TAB Prov:Jhonny Anders 04/25/16 Acetaminophen* (ACETAMINOPHEN 325MG TABLET*) 325 Mg Tablet, 650 MG ORAL Q4H Y, # 30 TAB Prov:ELLY ELIAS 04/12/16 Tamsulosin HCl (Flomax) 0.4 Mg Cap.er.24h, 0.4 MG ORAL BID, #1 CAP Prov:Lisa Corona GUM MACHINE FILLER 01/28/16 Ranitidine Hcl* (ZANTAC*) 150 Mg Tablet, 150 MG ORAL BEDTIME, #1 TAB Prov:Lisa Corona GUM MACHINE FILLER 01/28/16 Pregabalin* (LYRICA*) 75 Mg Capsule, 75 MG ORAL BID Y for nerve pain, #1 CAP Prov:Lisa Corona GUM MACHINE FILLER 01/28/16 Nortriptyline HCl (Nortriptyline HCl) 25 Mg Capsule, 25 MG ORAL QHS, #1 CAP Prov:Lisa Coronales GUM MACHINE FILLER 01/28/16 Metoprolol Tartrate (Metoprolol Tartrate) 25 Mg Tablet, 25 MG ORAL Q12HR, #1 TAB Prov:Lisa Coronales GUM MACHINE FILLER 01/28/16 Loperamide HCl (Loperamide) 2 Mg Capsule, 2 MG ORAL Q8H Y for Diarrhea, #1 CAP Prov:Poly Coronatyerll Jameson GUM MACHINE FILLER 01/28/16 Hydrocodone Bit/Acetaminophen 10-325* (HYDROCODON-ACETAMINOPHN 10-325*) 1 Each Tablet, 1 EA ORAL Q6H Y for Severe Pain (Pain Scale 7-10), #1 TAB Prov:Poly Coronatyrell Jameson GUM MACHINE FILLER 01/28/16 Ferrous Sulfate (Feosol) 325 Mg Tablet, 325 MG ORAL DAILY, #1 TAB Prov:Poly Coronatyrell Jameson GUM MACHINE FILLER 01/28/16 Finasteride (FINASTERIDE) 5 Mg Tablet, 5 MG ORAL DAILY, #1 TAB Prov:Lisa Corona Trino GUM MACHINE FILLER 01/28/16 Dronabinol* (MARINOL*) 2.5 Mg Capsule, 5 MG ORAL BID, #1 CAP Prov:Lisa Corona Jameson GUM MACHINE FILLER 01/28/16 Clonidine HCl (Clonidine HCl) 0.1 Mg Tablet, 0.1 MG ORAL Q8H Y for sbp>170, #1 TAB Prov:Poly Coronatyrell Jameson GUM MACHINE FILLER 01/28/16 Amlodipine Besylate (Norvasc) 5 Mg Tablet, 5 MG ORAL DAILY, #1 TAB Prov:Torsten Coronatodd Jameson GUM MACHINE FILLER 01/28/16 Atorvastatin Calcium* (LIPITOR*) 20 Mg Tablet, 20 MG ORAL BEDTIME, #1 TAB Prov:Poly Coronatyrell Jameson GUM MACHINE FILLER 01/28/16 Aspirin Ec* (ASPIRIN EC*) 81 Mg Tablet.dr, 81 MG ORAL DAILY, #1 TAB Prov:Torsten Coronatodd Jameson GUM MACHINE FILLER 01/28/16 Allopurinol* (ALLOPURINOL*) 100 Mg Tablet, 300 MG ORAL DAILY, #1 TAB Prov:Torsten Coronatodd Jameson GUM MACHINE FILLER 01/28/16 Reported Medications Atorvastatin (Lipitor) 80 Mg Tablet, 80 MG ORAL DAILY, TAB 0 Refills 04/12/17 Valsartan (DIOVAN) 80 Mg Tab, 80 MG ORAL DAILY, TAB 04/12/17 Terazosin Hcl (TERAZOSIN HCL) 10 Mg Capsule, 10 MG ORAL, CAP 04/12/17 Pantoprazole* (PROTONIX*) 40 Mg Tablet.dr, 40 MG ORAL DAILY, TAB 04/04/17 Vancomycin Hcl (VANCOMYCIN HCL) 125 Mg Capsule, 125 MG PO BID for 7 Days, #14 CAP 04/04/17 Magnesium Oxide (MAGOX 400) 400 Mg Tablet, 400 MG ORAL TID, #30 TAB 0 Refills 04/04/17 Thalidomide (THALOMID) 50 Mg Capsule, 50 MG PO DAILY, CAP 06/19/16 Lansoprazole* (LANSOPRAZOLE*) 15 Mg Capsule.dr, 15 MG ORAL DAILY, CAP 06/19/16 Ondansetron* (ZOFRAN*) 4 Mg Tablet, 4 MG ORAL Q6H Y for Nausea & Vomiting, TAB 06/19/16 Acyclovir* (ACYCLOVIR*) 400 Mg Tablet, 400 MG ORAL BID, TAB 06/19/16 Clonidine Hcl* (CATAPRES*) 0.1 Mg Tablet, 0.1 MG ORAL EVERY 6 HOURS, TAB 07/02/15 Med list reviewed/reconciled: Yes Allergies: Coded Allergies: No Known Allergies (Unverified , 04/23/13) Patient History History Provided By: Patient, Medical Record PMH Narrative Past Medical History: see triage record, old chart reviewed, HTN, TN, CAD, GERD , renal disease Past Surgical History: CABG, appy Social History: Denies: smoking, alcohol use, drug use Reviewed Nursing Documentation: PMH: Agreed, PSxH: Agreed Nursing Documentation-PMH Hx Cardiac Problems: Yes Hx Hypertension: Yes Hx Pacemaker: No - C-DIFF,MYELOMA,CA Hx Asthma: No Hx COPD: No Hx Diabetes: No Hx Cancer: Yes Hx Gastrointestinal Problems: Yes Hx Dialysis: No Hx Neurological Problems: No Hx Cerebrovascular Accident: No Hx Seizures: No Hx Dizziness: No Hx Syncope: No Hx Headaches: No Review of Systems All Other Systems: negative except mentioned in HPI Physical Exam Vital Signs Date Time Temp Pulse Resp B/P (MAP) Pulse Ox O2 Delivery O2 Flow Rate FiO2 04/12/17 10:36 98.1 84 16 128/67 98 Room Air Sp02 EP Interpretation: reviewed, normal Labs Laboratory Tests Test 04/12/17 12:12 04/13/17 05:50 White Blood Count 5.4 K/UL (4.8-10.8) 6.3 K/UL (4.8-10.8) Red Blood Count 3.26 M/UL (4.70-6.10) L 3.07 M/UL (4.70-6.10) L Hemoglobin 10.8 G/DL (14.2-18.0) L 10.3 G/DL (14.2-18.0) L Hematocrit 32.4 % (42.0-52.0) L 31.2 % (42.0-52.0) L Mean Corpuscular Volume 100 FL (80-99) H 102 FL (80-99) H Mean Corpuscular Hemoglobin 33.0 PG (27.0-31.0) H 33.7 PG (27.0-31.0) H Mean Corpuscular Hemoglobin Concent 33.2 G/DL (32.0-36.0) 33.1 G/DL (32.0-36.0) Red Cell Distribution Width 14.9 % (11.6-14.8) H 15.9 % (11.6-14.8) H Platelet Count 146 K/UL (150-450) L 131 K/UL (150-450) L Mean Platelet Volume 6.4 FL (6.5-10.1) L 6.5 FL (6.5-10.1) Neutrophils (%) (Auto) 70.9 % (45.0-75.0) 81.8 % (45.0-75.0) H Lymphocytes (%) (Auto) 11.2 % (20.0-45.0) L 4.2 % (20.0-45.0) L Monocytes (%) (Auto) 13.7 % (1.0-10.0) H 10.1 % (1.0-10.0) H Eosinophils (%) (Auto) 2.3 % (0.0-3.0) 0.8 % (0.0-3.0) Basophils (%) (Auto) 2.0 % (0.0-2.0) 3.1 % (0.0-2.0) H Urine Color Yellow Urine Appearance Turbid Urine pH 5 (4.5-8.0) Urine Specific [place] 1.020 (1.005-1.035) Urine Protein 1+ (NEGATIVE) H Urine Glucose (UA) Negative (NEGATIVE) Urine Ketones Negative (NEGATIVE) Urine Occult Blood 2+ (NEGATIVE) H Urine Nitrite Negative (NEGATIVE) Urine Bilirubin Negative (NEGATIVE) Urine Urobilinogen Normal MG/DL (0.0-1.0) Urine Leukocyte Esterase 3+ (NEGATIVE) H Urine RBC 5-10 /HPF (0 - 0) H Urine WBC Tntc /HPF (0 - 0) H Urine Squamous Epithelial Cells Few /LPF (NONE/OCC) Urine Bacteria Many /HPF (NONE) H Sodium Level 142 MMOL/L (136-145) 141 MMOL/L (136-145) Potassium Level 3.9 MMOL/L (3.5-5.1) 4.2 MMOL/L (3.5-5.1) Chloride Level 109 MMOL/L (98-107) H 107 MMOL/L (98-107) Carbon Dioxide Level 23 MMOL/L (21-32) 25 MMOL/L (21-32) Anion Gap 10 mmol/L (5-15) 9 mmol/L (5-15) Blood Urea Nitrogen 9 mg/dL (7-18) 7 mg/dL (7-18) Creatinine 1.2 MG/DL (0.55-1.30) 1.2 MG/DL (0.55-1.30) Estimat Glomerular Filtration Rate mL/min (>60) mL/min (>60) Glucose Level 93 MG/DL (74-106) 113 MG/DL (74-106) H Calcium Level 9.1 MG/DL (8.5-10.1) 8.9 MG/DL (8.5-10.1) Total Bilirubin 1.2 MG/DL (0.2-1.0) H 1.2 MG/DL (0.2-1.0) H Direct Bilirubin 0.2 MG/DL (0.0-0.3) 0.2 MG/DL (0.0-0.3) Aspartate Amino Transf (AST/SGOT) 18 U/L (15-37) 16 U/L (15-37) Alanine Aminotransferase (ALT/SGPT) 25 U/L (12-78) 24 U/L (12-78) Alkaline Phosphatase 99 U/L (46-116) 93 U/L (46-116) Total Protein 6.3 G/DL (6.4-8.2) L 5.9 G/DL (6.4-8.2) L Albumin 3.5 G/DL (3.4-5.0) 3.2 G/DL (3.4-5.0) L Globulin 2.8 g/dL 2.7 g/dL Albumin/Globulin Ratio 1.2 (1.0-2.7) 1.2 (1.0-2.7) Lipase 112 U/L (73-393) 85 U/L (73-393) Activated Partial Thromboplast Time 26 SEC (23-33) Amylase Level 78 U/L (25-115) General Appearance: well appearing, no apparent distress, alert Head: normocephalic EENT: PERRL/EOMI, normal ENT inspection Neck: supple Respiratory: normal breath sounds, no respiratory distress Cardiovascular: normal rate Gastrointestinal: normal inspection, non tender, soft, normal bowel sounds, non -distended Rectal: deferred Genitourinary: deferred Musculoskeletal: normal inspection, back normal Neurologic: normal inspection, alert, oriented x3, responsive Psychiatric: normal inspection, judgement/insight normal, memory normal Skin: normal inspection, normal color, no rash, warm/dry, palpation normal, well hydrated Lymphatic: normal inspection, no adenopathy Current Medications Current Medications Medications (Trade) Dose Ordered Sig/Antionette Route PRN Reason Start Time Stop Time Status Last Admin Dose Admin Acetaminophen (Tylenol) 650 mg Q4H PRN ORAL fever 04/12/17 15:45 05/12/17 15:44 Al Hydroxide/Mg Hydroxide (Mylanta II) 30 ml Q6H PRN ORAL dyspepsia 04/12/17 15:45 05/12/17 15:44 Allopurinol (Zyloprim) 300 mg DAILY ORAL 04/13/17 09:00 05/13/17 08:59 04/13/17 09:33 Amlodipine Besylate (Norvasc) 5 mg DAILY ORAL 04/13/17 09:00 05/13/17 08:59 04/13/17 09:32 Atorvastatin Calcium (Lipitor) 80 mg QHS ORAL 04/12/17 21:00 05/12/17 20:59 04/12/17 20:52 Dextrose (Dextrose 50%) STAT PRN IV Hypoglycemia 04/12/17 15:45 05/12/17 15:44 Dextrose/Sodium Chloride 1,000 ml @ 75 mls/hr [id number] IV 04/12/17 17:45 05/12/17 17:44 04/13/17 06:28 Diphenhydramine HCl (Benadryl) 25 mg Q6H PRN ORAL Itching/Pruritis 04/12/17 15:45 05/12/17 15:44 Diphenoxylate HCl/ Atropine (Lomotil) 2.5 mg Q4H PRN ORAL Diarrhea 04/12/17 16:15 05/12/17 16:14 Dronabinol (Marinol) 5 mg BID ORAL 04/12/17 18:00 05/12/17 17:59 04/13/17 09:35 Finasteride (Proscar) 5 mg DAILY ORAL 04/13/17 09:00 05/13/17 08:59 04/13/17 09:35 Heparin Sodium (Porcine) (Heparin 5000 units/ml) 5,000 units EVERY 12 HOURS SUBQ 04/12/17 21:00 05/12/17 20:59 Lorazepam (Ativan 2mg/ml 1ml) 1 mg Q4H PRN IV agitation 04/12/17 15:45 04/19/17 15:44 Metoclopramide HCl (Reglan) 10 mg Q6H PRN IVP SEVERE NAUSEA 04/12/17 15:45 05/12/17 15:44 Metoprolol Tartrate (Lopressor) 25 mg Q12HR ORAL 04/12/17 21:00 05/12/17 20:59 04/13/17 09:34 Metronidazole 100 ml @ 100 mls/hr Q8HR@0000,0800,1600 IVPB 04/12/17 17:30 04/19/17 17:29 04/13/17 09:23 Nitroglycerin (Ntg) 0.4 mg Q5M X 3 DOSES PRN SL Prn Chest Pain 04/12/17 15:45 05/12/17 15:44 Nortriptyline HCl (Pamelor) 25 mg QHS ORAL 04/12/17 21:00 05/12/17 20:59 04/12/17 20:51 Ondansetron HCl (Zofran) 4 mg Q6H PRN IVP Nausea & Vomiting 04/12/17 15:45 05/12/17 15:44 Pantoprazole (Protonix) 40 mg DAILY IV 04/13/17 09:00 05/13/17 08:59 04/13/17 09:26 Polyethylene Glycol (Miralax) 17 gm HSPRN PRN ORAL Constipation 04/12/17 15:45 05/12/17 15:44 Pregabalin (Lyrica) 75 mg BIDPRN PRN ORAL NEUROPATHY 04/12/17 15:45 05/12/17 15:44 Promethazine HCl (Phenergan) 25 mg Q8H PRN IV refractory nausea 04/12/17 15:45 05/12/17 15:44 Tamsulosin HCl (Flomax) 0.4 mg BID ORAL 04/12/17 18:00 05/12/17 17:59 04/13/17 09:34 Temazepam (Restoril) 15 mg HSPRN PRN ORAL Insomnia 04/12/17 15:45 04/19/17 15:44 GI: Plan Problems: (1) Clostridium difficile colitis (2) Pyelonephritis (3) Anemia (4) Abdominal pain (5) Anemia (6) Chemotherapy-induced diarrhea (7) LUQ abdominal pain (8) Anemia (9) Pancreatitis Plan s/p EGD/colonoscopy 2015 >> amyloidosis cdiff positive stool culture normal folate/B12 WNL Vit D deficiency monitor H&H, prn transfusions low residual/fiber diet / lactose free diet after imaging studies IV hydration + electrolyte replacement lomotil prn abx H2B fu labs fu Vit D KATHY WATSON 04/15/17 1007: History of Present Illness General Reason for Hospitalization: Abdominal Pain Present Illness Home Meds Active Scripts Diphenoxylate Hcl/Atropine (LOMOTIL TABLET) 1 Each Tablet, 5 MG ORAL TID, #1 TAB Prov:Jhonny Anders 04/25/16 Acetaminophen* (ACETAMINOPHEN 325MG TABLET*) 325 Mg Tablet, 650 MG ORAL Q4H Y, # 30 TAB Prov:ELLY ELIAS 04/12/16 Tamsulosin HCl (Flomax) 0.4 Mg Cap.er.24h, 0.4 MG ORAL BID, #1 CAP Prov:Lisa Corona GUM MACHINE FILLER 01/28/16 Ranitidine Hcl* (ZANTAC*) 150 Mg Tablet, 150 MG ORAL BEDTIME, #1 TAB Prov:Lisa Corona GUM MACHINE FILLER 01/28/16 Pregabalin* (LYRICA*) 75 Mg Capsule, 75 MG ORAL BID Y for nerve pain, #1 CAP Prov:Lisa Corona GUM MACHINE FILLER 01/28/16 Nortriptyline HCl (Nortriptyline HCl) 25 Mg Capsule, 25 MG ORAL QHS, #1 CAP Prov:Lisa Corona GUM MACHINE FILLER 01/28/16 Metoprolol Tartrate (Metoprolol Tartrate) 25 Mg Tablet, 25 MG ORAL Q12HR, #1 TAB Prov:Lisa Corona GUM MACHINE FILLER 01/28/16 Loperamide HCl (Loperamide) 2 Mg Capsule, 2 MG ORAL Q8H Y for Diarrhea, #1 CAP Prov:Lisa Corona GUM MACHINE FILLER 01/28/16 Hydrocodone Bit/Acetaminophen 10-325* (HYDROCODON-ACETAMINOPHN 10-325*) 1 Each Tablet, 1 EA ORAL Q6H Y for Severe Pain (Pain Scale 7-10), #1 TAB Prov:Lisa Corona GUM MACHINE FILLER 01/28/16 Ferrous Sulfate (Feosol) 325 Mg Tablet, 325 MG ORAL DAILY, #1 TAB Prov:Lisa Corona GUM MACHINE FILLER 01/28/16 Finasteride (FINASTERIDE) 5 Mg Tablet, 5 MG ORAL DAILY, #1 TAB Prov:Lisa Corona GUM MACHINE FILLER 01/28/16 Dronabinol* (MARINOL*) 2.5 Mg Capsule, 5 MG ORAL BID, #1 CAP Prov:Lisa Corona GUM MACHINE FILLER 01/28/16 Clonidine HCl (Clonidine HCl) 0.1 Mg Tablet, 0.1 MG ORAL Q8H Y for sbp>170, #1 TAB Prov:Lisa Corona GUM MACHINE FILLER 01/28/16 Amlodipine Besylate (Norvasc) 5 Mg Tablet, 5 MG ORAL DAILY, #1 TAB Prov:Lisa Corona GUM MACHINE FILLER 01/28/16 Atorvastatin Calcium* (LIPITOR*) 20 Mg Tablet, 20 MG ORAL BEDTIME, #1 TAB Prov:Lisa Corona GUM MACHINE FILLER 01/28/16 Aspirin Ec* (ASPIRIN EC*) 81 Mg Tablet.dr, 81 MG ORAL DAILY, #1 TAB Prov:Lisa Corona GUM MACHINE FILLER 01/28/16 Allopurinol* (ALLOPURINOL*) 100 Mg Tablet, 300 MG ORAL DAILY, #1 TAB Prov:Lisa Corona GUM MACHINE FILLER 01/28/16 Reported Medications Atorvastatin (Lipitor) 80 Mg Tablet, 80 MG ORAL DAILY, TAB 0 Refills 04/12/17 Valsartan (DIOVAN) 80 Mg Tab, 80 MG ORAL DAILY, TAB 04/12/17 Terazosin Hcl (TERAZOSIN HCL) 10 Mg Capsule, 10 MG ORAL, CAP 04/12/17 Pantoprazole* (PROTONIX*) 40 Mg Tablet.dr, 40 MG ORAL DAILY, TAB 04/04/17 Vancomycin Hcl (VANCOMYCIN HCL) 125 Mg Capsule, 125 MG PO BID for 7 Days, #14 CAP 04/04/17 Magnesium Oxide (MAGOX 400) 400 Mg Tablet, 400 MG ORAL TID, #30 TAB 0 Refills 04/04/17 Thalidomide (THALOMID) 50 Mg Capsule, 50 MG PO DAILY, CAP 06/19/16 Lansoprazole* (LANSOPRAZOLE*) 15 Mg Capsule.dr, 15 MG ORAL DAILY, CAP 06/19/16 Ondansetron* (ZOFRAN*) 4 Mg Tablet, 4 MG ORAL Q6H Y for Nausea & Vomiting, TAB 06/19/16 Acyclovir* (ACYCLOVIR*) 400 Mg Tablet, 400 MG ORAL BID, TAB 06/19/16 Clonidine Hcl* (CATAPRES*) 0.1 Mg Tablet, 0.1 MG ORAL EVERY 6 HOURS, TAB 07/02/15 Allergies: Coded Allergies: No Known Allergies (Unverified , 04/23/13) GI: Plan Plan The patient was seen and examined at bedside and all new and available data was reviewed in the patients chart. I agree with the above findings, impression and plan. (Patient seen earlier today. Signature stamp does not reflect patient encounter time.). - [facility] [place] Apr 13, 2017 11:43 KATHY WATSON Apr 15, 2017 10:07
--- NOTE | 2017-04-13 13:09 | Internal Med Progress Note ---
Subjective Date of Service: Apr 13, 2017 Physician Name Elly Elias Attending Physician Jovani Villagomez MD Current Medications Medications (Trade) Dose Ordered Sig/Antionette Route PRN Reason Start Time Stop Time Status Last Admin Dose Admin Acetaminophen (Tylenol) 650 mg Q4H PRN ORAL fever 04/12/17 15:45 05/12/17 15:44 Al Hydroxide/Mg Hydroxide (Mylanta II) 30 ml Q6H PRN ORAL dyspepsia 04/12/17 15:45 05/12/17 15:44 Allopurinol (Zyloprim) 300 mg DAILY ORAL 04/13/17 09:00 05/13/17 08:59 04/13/17 09:33 Amlodipine Besylate (Norvasc) 5 mg DAILY ORAL 04/13/17 09:00 05/13/17 08:59 04/13/17 09:32 Atorvastatin Calcium (Lipitor) 80 mg QHS ORAL 04/12/17 21:00 05/12/17 20:59 04/12/17 20:52 Dextrose (Dextrose 50%) STAT PRN IV Hypoglycemia 04/12/17 15:45 05/12/17 15:44 Dextrose/Sodium Chloride 1,000 ml @ 75 mls/hr [id number] IV 04/12/17 17:45 05/12/17 17:44 04/13/17 06:28 Diphenhydramine HCl (Benadryl) 25 mg Q6H PRN ORAL Itching/Pruritis 04/12/17 15:45 05/12/17 15:44 Diphenoxylate HCl/ Atropine (Lomotil) 2.5 mg Q4H PRN ORAL Diarrhea 04/12/17 16:15 05/12/17 16:14 Dronabinol (Marinol) 5 mg BID ORAL 04/12/17 18:00 05/12/17 17:59 04/13/17 09:35 Finasteride (Proscar) 5 mg DAILY ORAL 04/13/17 09:00 05/13/17 08:59 04/13/17 09:35 Heparin Sodium (Porcine) (Heparin 5000 units/ml) 5,000 units EVERY 12 HOURS SUBQ 04/12/17 21:00 05/12/17 20:59 Lorazepam (Ativan 2mg/ml 1ml) 1 mg Q4H PRN IV agitation 04/12/17 15:45 04/19/17 15:44 Metoclopramide HCl (Reglan) 10 mg Q6H PRN IVP SEVERE NAUSEA 04/12/17 15:45 05/12/17 15:44 Metoprolol Tartrate (Lopressor) 25 mg Q12HR ORAL 04/12/17 21:00 05/12/17 20:59 04/13/17 09:34 Metronidazole 100 ml @ 100 mls/hr Q8HR@0000,0800,1600 IVPB 04/12/17 17:30 04/19/17 17:29 04/13/17 09:23 Nitroglycerin (Ntg) 0.4 mg Q5M X 3 DOSES PRN SL Prn Chest Pain 04/12/17 15:45 05/12/17 15:44 Nortriptyline HCl (Pamelor) 25 mg QHS ORAL 04/12/17 21:00 05/12/17 20:59 04/12/17 20:51 Ondansetron HCl (Zofran) 4 mg Q6H PRN IVP Nausea & Vomiting 04/12/17 15:45 05/12/17 15:44 Polyethylene Glycol (Miralax) 17 gm HSPRN PRN ORAL Constipation 04/12/17 15:45 05/12/17 15:44 Pregabalin (Lyrica) 75 mg BIDPRN PRN ORAL NEUROPATHY 04/12/17 15:45 05/12/17 15:44 Promethazine HCl (Phenergan) 25 mg Q8H PRN IV refractory nausea 04/12/17 15:45 05/12/17 15:44 Ranitidine HCl (Zantac) 150 mg BEDTIME ORAL 04/13/17 21:00 05/13/17 20:59 Tamsulosin HCl (Flomax) 0.4 mg BID ORAL 04/12/17 18:00 05/12/17 17:59 04/13/17 09:34 Temazepam (Restoril) 15 mg HSPRN PRN ORAL Insomnia 04/12/17 15:45 04/19/17 15:44 Allergies: Coded Allergies: No Known Allergies (Unverified , 04/23/13) ROS Limited/Unobtainable: No Constitutional: Reports: no symptoms HEENT: Reports: no symptoms Cardiovascular: Reports: no symptoms Respiratory: Reports: no symptoms Gastrointestinal/Abdominal: Reports: abdominal pain Genitourinary: Reports: no symptoms Neurologic/Psychiatric: Reports: no symptoms Subjective 76 YO M admitted with left lower quadrant pain. Now UTI. Cover for Int Antonio-Dr Villagomez. Objective Last Vital Signs Date Time Temp Pulse Resp B/P (MAP) Pulse Ox O2 Delivery O2 Flow Rate FiO2 04/13/17 11:32 97.8 73 20 122/69 99 Room Air General Appearance: WD/WN, no apparent distress, alert EENT: PERRL/EOMI, normal ENT inspection, TMs normal Neck: non-tender, normal alignment, supple, normal inspection Cardiovascular: normal peripheral pulses, normal rate, regular rhythm, no gallop/murmur, no JVD Respiratory/Chest: chest wall non-tender, lungs clear, normal breath sounds, no respiratory distress, no accessory muscle use Abdomen: normal bowel sounds, soft, no organomegaly, guarding, rebound, tender Extremities: normal range of motion, non-tender Neurologic: network/telecom engineer II-XII grossly normal, no motor/sensory deficits Skin: normal pigmentation, warm/dry Laboratory Tests Test 04/13/17 05:50 White Blood Count 6.3 K/UL (4.8-10.8) Red Blood Count 3.07 M/UL (4.70-6.10) L Hemoglobin 10.3 G/DL (14.2-18.0) L Hematocrit 31.2 % (42.0-52.0) L Mean Corpuscular Volume 102 FL (80-99) H Mean Corpuscular Hemoglobin 33.7 PG (27.0-31.0) H Mean Corpuscular Hemoglobin Concent 33.1 G/DL (32.0-36.0) Red Cell Distribution Width 15.9 % (11.6-14.8) H Platelet Count 131 K/UL (150-450) L Mean Platelet Volume 6.5 FL (6.5-10.1) Neutrophils (%) (Auto) 81.8 % (45.0-75.0) H Lymphocytes (%) (Auto) 4.2 % (20.0-45.0) L Monocytes (%) (Auto) 10.1 % (1.0-10.0) H Eosinophils (%) (Auto) 0.8 % (0.0-3.0) Basophils (%) (Auto) 3.1 % (0.0-2.0) H Activated Partial Thromboplast Time 26 SEC (23-33) Sodium Level 141 MMOL/L (136-145) Potassium Level 4.2 MMOL/L (3.5-5.1) Chloride Level 107 MMOL/L (98-107) Carbon Dioxide Level 25 MMOL/L (21-32) Anion Gap 9 mmol/L (5-15) Blood Urea Nitrogen 7 mg/dL (7-18) Creatinine 1.2 MG/DL (0.55-1.30) Estimat Glomerular Filtration Rate mL/min (>60) Glucose Level 113 MG/DL (74-106) H Calcium Level 8.9 MG/DL (8.5-10.1) Total Bilirubin 1.2 MG/DL (0.2-1.0) H Direct Bilirubin 0.2 MG/DL (0.0-0.3) Aspartate Amino Transf (AST/SGOT) 16 U/L (15-37) Alanine Aminotransferase (ALT/SGPT) 24 U/L (12-78) Alkaline Phosphatase 93 U/L (46-116) Total Protein 5.9 G/DL (6.4-8.2) L Albumin 3.2 G/DL (3.4-5.0) L Globulin 2.7 g/dL Albumin/Globulin Ratio 1.2 (1.0-2.7) Amylase Level 78 U/L (25-115) Lipase 85 U/L (73-393) Microbiology Date/Time Source Procedure Growth Status 04/12/17 12:12 Urine,Clean Catch Urine Culture - Preliminary Gram Negative Bacillus 1 Resulted Assessment/Plan Problem List: (1) LLQ abdominal pain (2) UTI (urinary tract infection) Assessment & Plan: Continue rocephin and levaquin (3) Clostridium difficile colitis Assessment & Plan: See GI note (4) Amyloidosis Assessment & Plan: GI-see gastroenterology note (5) Multiple myeloma (6) HTN (hypertension) Assessment & Plan: Cont norvasc and lopressor (7) Anemia (8) CAD (coronary artery disease) (9) BPH (benign prostatic hyperplasia) Status: progressing ELLY ELIAS Apr 13, 2017 13:09
[2017-04-13] MEDS ORDERED: cefTRIAXone 1 GM in D5W 55 ML IVPB SCH (15:00)
[2017-04-13 15:45] VITALS: BP 115/57
--- NOTE | 2017-04-13 16:58 | Diagnostic Imaging Report ---
Indication:Abdominal pain Technique: Grayscale and duplex Doppler imaging of the abdomen performed. Comparison: None Findings: The liver, demonstrated part of the pancreas, gallbladder, aorta and IVC, both kidneys, spleen appear unremarkable. There is no biliary ductal dilatation identified. Doppler evaluation of the main portal vein shows patency. There is no ascites. No hydronephrosis seen. Impression: No acute findings.
--- NOTE | 2017-04-13 17:57 | Consultation ---
History of Present Illness General Date patient seen: Apr 13, 2017 Chief Complaint: Abdominal Pain Referring physician: JASON REYES Reason for Consultation: Abdominal Pain high suspcian for acute C. Diff col Present Illness HPI The patient is a 76 yo gentleman with pmhx multiple myeloma diagnosed 3 years ago, HTN, history of anemia of chronic disease, HTN, prostate cancer, coronary artery disease and amyloidosis of the gastrointestinal tract who presents to [facility] with complaint of severe acute abdominal pain. The patient has a recent history of being hospitalized for abdominal pain that was recently diagnosed as clostridial difficile colitis, patient was subsequently discharged a few weeks ago from the hospital with oral vancomycin. However the patient reports now the abdominal pain is very severe and he presents to the hospital for assistance. The patient denies fever or chills, denies any diarrhea with puss or blood per stool. No complaints of shortness of breath or chest pain and headache. Patient is being followed by oncologist Dr. Al. I was asked to evaluate the patient from a internal medicine point of view. The Allergies: Coded Allergies: No Known Allergies (Unverified , 04/23/13) Medication History Scheduled Acyclovir* (Acyclovir*), 400 MG ORAL BID, (Reported) Allopurinol* (Allopurinol*), 300 MG ORAL DAILY Amlodipine Besylate (Norvasc), 5 MG ORAL DAILY Aspirin Ec* (Aspirin Ec*), 81 MG ORAL DAILY Atorvastatin (Lipitor), 80 MG ORAL DAILY, (Reported) Atorvastatin Calcium* (Lipitor*), 20 MG ORAL BEDTIME Clonidine Hcl* (Catapres*), 0.1 MG ORAL EVERY 6 HOURS, (Reported) Diphenoxylate Hcl/Atropine (Lomotil Tablet), 5 MG ORAL TID Ferrous Sulfate (Feosol), 325 MG ORAL DAILY Finasteride (Finasteride), 5 MG ORAL DAILY Lansoprazole* (Lansoprazole*), 15 MG ORAL DAILY, (Reported) Magnesium Oxide (Magox 400), 400 MG ORAL TID, (Reported) Metoprolol Tartrate (Metoprolol Tartrate), 25 MG ORAL Q12HR Pantoprazole* (Protonix*), 40 MG ORAL DAILY, (Reported) Ranitidine Hcl* (Zantac*), 150 MG ORAL BEDTIME Tamsulosin HCl (Flomax), 0.4 MG ORAL BID Thalidomide (Thalomid), 50 MG PO DAILY, (Reported) Valsartan (Diovan), 80 MG ORAL DAILY, (Reported) Vancomycin Hcl (Vancomycin Hcl), 125 MG PO BID, (Reported) Scheduled PRN Acetaminophen* (Acetaminophen 325MG Tablet*), 650 MG ORAL Q4H PRN Clonidine HCl (Clonidine HCl), 0.1 MG ORAL Q8H PRN for sbp>170 Hydrocodone Bit/Acetaminophen 10-325* (Hydrocodon-Acetaminophn 10-325*), 1 EA ORAL Q6H PRN for Severe Pain (Pain Scale 7-10) Loperamide HCl (Loperamide), 2 MG ORAL Q8H PRN for Diarrhea Ondansetron* (Zofran*), 4 MG ORAL Q6H PRN for Nausea & Vomiting, (Reported) Miscellaneous Medications Terazosin Hcl (Terazosin Hcl), 10 MG ORAL, (Reported) Patient History Healthcare decision maker Resuscitation status Full Code Advanced Directive on File No Past Medical/Surgical History Past Medical/Surgical History: (1) Anemia (2) Pancreatitis (3) LUQ abdominal pain (4) Abdominal pain (5) Clostridium difficile colitis (6) Chemotherapy-induced diarrhea (7) Amyloidosis (8) CAD (coronary artery disease) (9) UTI (urinary tract infection) (10) Multiple myeloma (11) HTN (hypertension) (12) LLQ abdominal pain (13) BPH (benign prostatic hyperplasia) (14) Clostridium difficile diarrhea (15) Hypertension (16) Multiple myeloma (17) Sepsis (18) C. difficile colitis (19) Confused (20) Chronic pain syndrome (21) Prostate cancer (22) toxic metabolic encephalopathy,multifactorial (23) Acute respiratory failure (24) Hypokalemia (25) Dehydration (26) Hyperkalemia (27) Shingles (28) Hypomagnesemia (29) Fever (30) Pain, abdominal (31) Coagulopathy (32) Cough (33) Diarrhea (34) Dysentery (35) Flank pain (36) Hypercholesteremia (37) Renal failure, acute (38) Leukocytosis (39) Post herpetic neuralgia (40) Renal failure (41) Renal insufficiency (42) Thrombocytopenia (43) Syncope (44) Agitation (45) PVC (premature ventricular contraction) (46) Weakness (47) Metabolic acidosis (48) Pulmonary embolism (49) Chemotherapy follow-up examination (50) Bronchitis (51) Chest pain (52) RLQ abdominal pain (53) Chronic pain (54) Acute coronary syndrome (55) Ventilator dependent (56) Acute renal disease (57) ACS (acute coronary syndrome) (58) CKD (chronic kidney disease) (59) Elevated LFTs (60) ESBL (extended spectrum beta-lactamase) producing bacteria infection (61) Left flank pain (62) PICC (peripherally inserted central catheter) in place (63) Acute on chronic renal failure (64) Leg pain, bilateral (65) E coli bacteremia (66) E-coli UTI (67) Episode of generalized weakness (68) Sepsis due to other specified Staphylococcus (69) Elevated troponin I level (70) Acute encephalopathy (71) Line sepsis (72) Bleeding from PICC line (73) Multiple injuries due to trauma (74) Symptomatic anemia (75) r/o paraneoplastic syndrom (76) Acute onset of unresponsiveness, ? etiology.r/o acute respiratory insuficiency (77) r/o ictal event r/oSAH (78) acute lumbar strain (79) intermittent generalised tremors without LOC (80) Transient LOC probably postanoxic encephalopathy. Review of Systems Constitutional: Reports: malaise, weakness Gastrointestinal: Reports: abdominal pain, nausea Physical Exam General Appearance: moderate distress Lines, tubes and drains: peripheral HEENT: normocephalic, atraumatic, anicteric, PERRL Neck: non-tender, normal alignment, supple, normal inspection Respiratory/Chest: chest wall non-tender, lungs clear, normal breath sounds, no respiratory distress, no accessory muscle use Breasts: no masses Cardiovascular/Chest: normal peripheral pulses, normal rate, regular rhythm, no JVD Abdomen: hyperactive bowel sounds, distended, guarding, rebound, tender Genitourinary/Rectal: normal genital exam, normal rectal exam Extremities: normal range of motion, non-tender, normal inspection, no calf tenderness, normal capillary refill, non-pitting Skin Exam: normal pigmentation, warm/dry Neurologic: manager telemetry II-XII grossly normal, no motor/sensory deficits Last 24 Hour Vital Signs Date Time Temp Pulse Resp B/P (MAP) Pulse Ox O2 Delivery O2 Flow Rate FiO2 04/13/17 15:45 97.9 68 19 115/57 98 Room Air 04/13/17 11:32 97.8 73 20 122/69 99 Room Air 04/13/17 09:34 65 113/71 04/13/17 09:32 65 113/71 04/13/17 07:58 98.2 65 19 113/71 100 Room Air 04/13/17 00:00 98.1 73 18 136/63 100 Room Air 04/12/17 20:52 75 141/67 04/12/17 20:00 98.4 75 18 141/67 100 Room Air Laboratory Tests Test 04/13/17 05:50 White Blood Count 6.3 K/UL (4.8-10.8) Red Blood Count 3.07 M/UL (4.70-6.10) L Hemoglobin 10.3 G/DL (14.2-18.0) L Hematocrit 31.2 % (42.0-52.0) L Mean Corpuscular Volume 102 FL (80-99) H Mean Corpuscular Hemoglobin 33.7 PG (27.0-31.0) H Mean Corpuscular Hemoglobin Concent 33.1 G/DL (32.0-36.0) Red Cell Distribution Width 15.9 % (11.6-14.8) H Platelet Count 131 K/UL (150-450) L Mean Platelet Volume 6.5 FL (6.5-10.1) Neutrophils (%) (Auto) 81.8 % (45.0-75.0) H Lymphocytes (%) (Auto) 4.2 % (20.0-45.0) L Monocytes (%) (Auto) 10.1 % (1.0-10.0) H Eosinophils (%) (Auto) 0.8 % (0.0-3.0) Basophils (%) (Auto) 3.1 % (0.0-2.0) H Activated Partial Thromboplast Time 26 SEC (23-33) Sodium Level 141 MMOL/L (136-145) Potassium Level 4.2 MMOL/L (3.5-5.1) Chloride Level 107 MMOL/L (98-107) Carbon Dioxide Level 25 MMOL/L (21-32) Anion Gap 9 mmol/L (5-15) Blood Urea Nitrogen 7 mg/dL (7-18) Creatinine 1.2 MG/DL (0.55-1.30) Estimat Glomerular Filtration Rate mL/min (>60) Glucose Level 113 MG/DL (74-106) H Calcium Level 8.9 MG/DL (8.5-10.1) Total Bilirubin 1.2 MG/DL (0.2-1.0) H Direct Bilirubin 0.2 MG/DL (0.0-0.3) Aspartate Amino Transf (AST/SGOT) 16 U/L (15-37) Alanine Aminotransferase (ALT/SGPT) 24 U/L (12-78) Alkaline Phosphatase 93 U/L (46-116) Total Protein 5.9 G/DL (6.4-8.2) L Albumin 3.2 G/DL (3.4-5.0) L Globulin 2.7 g/dL Albumin/Globulin Ratio 1.2 (1.0-2.7) Amylase Level 78 U/L (25-115) Lipase 85 U/L (73-393) Height (Feet): 6 Height (Inches): 1.00 Weight (Pounds): 197 Medications Current Medications Medications (Trade) Dose Ordered Sig/Antionette Route PRN Reason Start Time Stop Time Status Last Admin Dose Admin Acetaminophen (Tylenol) 650 mg Q4H PRN ORAL fever 04/12/17 15:45 05/12/17 15:44 Al Hydroxide/Mg Hydroxide (Mylanta II) 30 ml Q6H PRN ORAL dyspepsia 04/12/17 15:45 05/12/17 15:44 Allopurinol (Zyloprim) 300 mg DAILY ORAL 04/13/17 09:00 05/13/17 08:59 04/13/17 09:33 Amlodipine Besylate (Norvasc) 5 mg DAILY ORAL 04/13/17 09:00 05/13/17 08:59 04/13/17 09:32 Atorvastatin Calcium (Lipitor) 80 mg QHS ORAL 04/12/17 21:00 05/12/17 20:59 04/12/17 20:52 Ceftriaxone Sodium 1 gm/ Dextrose 55 ml @ 110 mls/hr Q24H IVPB 04/13/17 15:00 04/20/17 14:59 04/13/17 16:02 Dextrose (Dextrose 50%) STAT PRN IV Hypoglycemia 04/12/17 15:45 05/12/17 15:44 Dextrose/Sodium Chloride 1,000 ml @ 75 mls/hr [id number] IV 04/12/17 17:45 05/12/17 17:44 04/13/17 06:28 Diphenhydramine HCl (Benadryl) 25 mg Q6H PRN ORAL Itching/Pruritis 04/12/17 15:45 05/12/17 15:44 Diphenoxylate HCl/ Atropine (Lomotil) 2.5 mg Q4H PRN ORAL Diarrhea 04/12/17 16:15 05/12/17 16:14 Dronabinol (Marinol) 5 mg BID ORAL 04/12/17 18:00 05/12/17 17:59 04/13/17 09:35 Finasteride (Proscar) 5 mg DAILY ORAL 04/13/17 09:00 05/13/17 08:59 04/13/17 09:35 Heparin Sodium (Porcine) (Heparin 5000 units/ml) 5,000 units EVERY 12 HOURS SUBQ 04/12/17 21:00 05/12/17 20:59 Levofloxacin 100 ml @ 100 mls/hr Q24H IVPB 04/13/17 16:00 04/20/17 15:59 04/13/17 16:49 Lorazepam (Ativan 2mg/ml 1ml) 1 mg Q4H PRN IV agitation 04/12/17 15:45 04/19/17 15:44 Metoclopramide HCl (Reglan) 10 mg Q6H PRN IVP SEVERE NAUSEA 04/12/17 15:45 05/12/17 15:44 Metoprolol Tartrate (Lopressor) 25 mg Q12HR ORAL 04/12/17 21:00 05/12/17 20:59 04/13/17 09:34 Metronidazole 100 ml @ 100 mls/hr Q8HR@0000,0800,1600 IVPB 04/12/17 17:30 04/19/17 17:29 04/13/17 09:23 Nitroglycerin (Ntg) 0.4 mg Q5M X 3 DOSES PRN SL Prn Chest Pain 04/12/17 15:45 05/12/17 15:44 Nortriptyline HCl (Pamelor) 25 mg QHS ORAL 04/12/17 21:00 05/12/17 20:59 04/12/17 20:51 Ondansetron HCl (Zofran) 4 mg Q6H PRN IVP Nausea & Vomiting 04/12/17 15:45 05/12/17 15:44 Polyethylene Glycol (Miralax) 17 gm HSPRN PRN ORAL Constipation 04/12/17 15:45 05/12/17 15:44 Pregabalin (Lyrica) 75 mg BIDPRN PRN ORAL NEUROPATHY 04/12/17 15:45 05/12/17 15:44 Promethazine HCl (Phenergan) 25 mg Q8H PRN IV refractory nausea 04/12/17 15:45 05/12/17 15:44 Ranitidine HCl (Zantac) 150 mg BEDTIME ORAL 04/13/17 21:00 05/13/17 20:59 Tamsulosin HCl (Flomax) 0.4 mg BID ORAL 04/12/17 18:00 05/12/17 17:59 04/13/17 09:34 Temazepam (Restoril) 15 mg HSPRN PRN ORAL Insomnia 04/12/17 15:45 04/19/17 15:44 Assessment/Plan Status: stable, progressing, unchanged Assessment/Plan Acute abdominal pain Recent history of C. Diff colitis Amyloidosis of GI tract history Acute UTI Hx multiple myeloma Hx chemotherapy HTN PLAN Broad spectrum anti-biotics for suspected C. Diff re-infection Pain management Anti-emetics as needed for nausea NPO IV hydration Yarbrough culture and sensitivity GOLDEN LIM Apr 13, 2017 17:57
[2017-04-13 20:00] VITALS: BP 109/65
[2017-04-13] MEDS: Atorvastatin 80mg tab ORAL SCH (21:20)
[2017-04-13] MEDS: Nortriptyline 25mg cap ORAL SCH (21:20)
[2017-04-14] VITALS: BP 112/54
[2017-04-14 03:53] VITALS: BP 104/43
[2017-04-14 07:45] LABS: MAGNESIUM 1.3 MG/DL (1.8-2.4)
[2017-04-14 08:00] VITALS: BP 126/68
[2017-04-14] MEDS: Heparin 5000 units/ml inj SUBQ SCH ×2 (09:00→21:00)
[2017-04-14] MEDS: Tamsulosin 0.4mg cap ORAL SCH ×2 (09:14→18:43)
[2017-04-14] MEDS: Allopurinol 100mg Tab ORAL SCH (09:16)
[2017-04-14] MEDS: Metoprolol 25mg tab ORAL SCH ×2 (09:16→22:21)
[2017-04-14] MEDS: Dronabinol 2.5mg Cap ORAL SCH ×2 (09:18→18:42)
[2017-04-14] MEDS: D5 1/2NS 1,000 ML IV SCH ×2 (09:45→14:50)
[2017-04-14 10:57] LABS: MEAN CORPUSCULAR HEMOGLOBIN 31.1 PG (27.0-31.0); MEAN CORPUSCULAR HGB CONC 30.7 G/DL (32.0-36.0); MEAN CORPUSCULAR VOLUME 102 FL (80-99); MEAN PLATELET VOLUME 5.5 FL (6.5-10.1); PLATELET COUNT 111 K/UL (150-450); RED BLOOD COUNT 3.04 M/UL (4.70-6.10); RED CELL DISTRIBUTION WIDTH 14.5 % (11.6-14.8); WHITE BLOOD COUNT 3.2 K/UL (4.8-10.8)
[2017-04-14 11:16] LABS: ANION GAP 7 mmol/L (5-15); CALCIUM 8.3 MG/DL (8.5-10.1); CARBON DIOXIDE 25 MMOL/L (21-32); CHLORIDE 108 MMOL/L (98-107); CREATININE 1.4 MG/DL (0.55-1.30); POTASSIUM 3.4 MMOL/L (3.5-5.1); SODIUM 140 MMOL/L (136-145)
--- NOTE | 2017-04-14 11:29 | GI Progress Note ---
Assessment/Plan Problems: (1) Chemotherapy-induced diarrhea ICD Codes: K52.1 - Toxic gastroenteritis and colitis; T45.1X5A - Adverse effect of antineoplastic and immunosuppressive drugs, initial encounter SNOMED: 655423200, 823193196 (2) Clostridium difficile colitis ICD Codes: A04.7 - Enterocolitis due to Clostridium difficile SNOMED: 205982411 (3) Anemia ICD Codes: D64.9 - Anemia SNOMED: 566222832 (4) Clostridium difficile diarrhea ICD Codes: A04.72 - Enterocolitis due to Clostridium difficile, not specified as recurrent SNOMED: 8808560562355 (5) Amyloidosis ICD Codes: E85.9 - Amyloidosis, unspecified SNOMED: 69324762 Status: unchanged Status Narrative Discussed with Dr. Flores. Assessment/Plan s/p EGD/colonoscopy 2015 >> amyloidosis cdiff positive stool culture normal folate/B12 WNL Vit D deficiency abdominal U/S unremarakble monitor H&H, prn transfusions low residual/fiber diet / lactose free diet IV hydration + electrolyte replacement lomotil prn abx >> vanco H2B fu labs fu Vit D Subjective Subjective diarrhea x 4 this morning Objective Last 24 Hour Vital Signs Date Time Temp Pulse Resp B/P (MAP) Pulse Ox O2 Delivery O2 Flow Rate FiO2 04/14/17 09:16 64 126/68 04/14/17 09:14 64 126/68 04/14/17 08:00 97.5 64 21 126/68 100 Room Air 04/14/17 03:53 97.3 64 20 104/43 71 Room Air 04/14/17 00:00 98.1 69 20 112/54 100 Room Air 04/13/17 21:21 71 109/65 04/13/17 20:00 98.2 71 20 109/65 100 Room Air 04/13/17 15:45 97.9 68 19 115/57 98 Room Air 04/13/17 11:32 97.8 73 20 122/69 99 Room Air Laboratory Tests Test 04/14/17 05:20 04/14/17 10:45 Phosphorus Level 3.0 MG/DL (2.5-4.9) Magnesium Level 1.3 MG/DL (1.8-2.4) L Vitamin D 25-Hydroxy Pending 25-Hydroxy Vitamin D2 Pending 25-Hydroxy Vitamin D3 Pending White Blood Count 3.2 K/UL (4.8-10.8) L Red Blood Count 3.04 M/UL (4.70-6.10) L Hemoglobin 9.4 G/DL (14.2-18.0) L Hematocrit 30.8 % (42.0-52.0) L Mean Corpuscular Volume 102 FL (80-99) H Mean Corpuscular Hemoglobin 31.1 PG (27.0-31.0) H Mean Corpuscular Hemoglobin Concent 30.7 G/DL (32.0-36.0) L Red Cell Distribution Width 14.5 % (11.6-14.8) Platelet Count 111 K/UL (150-450) L Mean Platelet Volume 5.5 FL (6.5-10.1) L Neutrophils (%) (Auto) % (45.0-75.0) Lymphocytes (%) (Auto) % (20.0-45.0) Monocytes (%) (Auto) % (1.0-10.0) Eosinophils (%) (Auto) % (0.0-3.0) Basophils (%) (Auto) % (0.0-2.0) Neutrophils % (Manual) Pending Lymphocytes % (Manual) Pending Platelet Estimate Pending Platelet Morphology Pending Sodium Level 140 MMOL/L (136-145) Potassium Level 3.4 MMOL/L (3.5-5.1) L Chloride Level 108 MMOL/L (98-107) H Carbon Dioxide Level 25 MMOL/L (21-32) Anion Gap 7 mmol/L (5-15) Blood Urea Nitrogen 10 mg/dL (7-18) Creatinine 1.4 MG/DL (0.55-1.30) H Estimat Glomerular Filtration Rate mL/min (>60) Glucose Level 108 MG/DL (74-106) H Calcium Level 8.3 MG/DL (8.5-10.1) L Height (Feet): 6 Height (Inches): 1.00 Weight (Pounds): 197 General Appearance: WD/WN, no apparent distress, alert Cardiovascular: normal rate Respiratory/Chest: normal breath sounds, no respiratory distress Abdominal Exam: normal bowel sounds, non tender, soft Extremities: normal range of motion, non-tender Domenica Chanel N.P. Apr 14, 2017 11:29
[2017-04-14 11:47] LABS: EOSINOPHILS % (MANUAL) 5 % (0-3); LYMPHOCYTES % (MANUAL) 17 % (20-45); NEUTROPHILS % (MANUAL) 53 % (45-75); PLATELET MORPHOLOGY NORMAL; TOTAL CELLS COUNTED 100
[2017-04-14 11:48] LABS: ANISOCYTOSIS 2+; BAND NEUTROPHILS % (MANUAL) 0 % (0-8); BASOPHILS % (MANUAL) 0 % (0-2); HYPOCHROMASIA 2+; MACROCYTES 1+; PLATELET ESTIMATE DECREASED
[2017-04-14 12:00] VITALS: BP 121/59
[2017-04-14] MEDS ORDERED: Vancomycin oral 125mg/2.5ml ORAL SCH (13:00)
[2017-04-14] MEDS ORDERED: D5NS 1000ml IV ONE (14:05)
[2017-04-14] MEDS ORDERED: Tubing IV Secondary IV ONE (14:05)
[2017-04-14 16:00] VITALS: BP 132/73
--- NOTE | 2017-04-14 16:55 | Consultation ---
Consult Note Consult Note ID DIC # [id number] SRIKANTH ANAND M.D. Apr 14, 2017 16:55
[2017-04-14] MEDS: Ertapenem 1 GM in NS 55 ML IVPB SCH (18:43)
[2017-04-14] MEDS: Vancomycin oral 125mg/2.5ml ORAL SCH ×2 (18:44→21:00)
--- NOTE | 2017-04-14 18:56 | Pulmonology Progress Note ---
Assessment/Plan Problems: (1) Sepsis (2) Multiple myeloma (3) UTI (urinary tract infection) (4) C. difficile colitis (5) Hypertension Assessment/Plan continue abx check cultures iv fluids check electrolytes all notes and meds reviewed Subjective ROS Limited/Unobtainable: No Constitutional: Reports: no symptoms HEENT: Repors: no symptoms Allergies: Coded Allergies: No Known Allergies (Unverified , 04/23/13) Objective Last 24 Hour Vital Signs Date Time Temp Pulse Resp B/P (MAP) Pulse Ox O2 Delivery O2 Flow Rate FiO2 04/14/17 16:00 97.9 64 20 132/73 99 Room Air 04/14/17 12:00 97.7 63 21 121/59 99 Room Air 04/14/17 09:16 64 126/68 04/14/17 09:14 64 126/68 04/14/17 08:00 97.5 64 21 126/68 100 Room Air 04/14/17 03:53 97.3 64 20 104/43 71 Room Air 04/14/17 00:00 98.1 69 20 112/54 100 Room Air 04/13/17 21:21 71 109/65 04/13/17 20:00 98.2 71 20 109/65 100 Room Air Intake and Output 04/14/17 04/15/17 19:00 07:00 Intake Total 420 ml Balance 420 ml Intake Oral 420 ml Objective General Appearance: WD/WN, no apparent distress Lines, tubes and drains: peripheral, HEENT: normocephalic, anicteric Neck: non-tender, normal alignment Respiratory/Chest: chest wall non-tender, lungs clear Cardiovascular/Chest: normal rate, regular rhythm Abdomen: non tender, soft Genitourinary/Rectal: normal genital exam, normal rectal exam Extremities: normal range of motion, non-pitting Microbiology Date/Time Source Procedure Growth Status 04/12/17 12:12 Urine,Clean Catch Urine Culture - Final Escherichia Coli - Esbl Complete Laboratory Tests 04/14/17 05:20: Phosphorus Level 3.0, Magnesium Level 1.3L, Vitamin D 25-Hydroxy [Pending], 25- Hydroxy Vitamin D2 [Pending], 25-Hydroxy Vitamin D3 [Pending] 04/14/17 10:45: White Blood Count 3.2L, Red Blood Count 3.04L, Hemoglobin 9.4L, Hematocrit 30.8L , Mean Corpuscular Volume 102H, Mean Corpuscular Hemoglobin 31.1H, Mean Corpuscular Hemoglobin Concent 30.7L, Red Cell Distribution Width 14.5, Platelet Count 111L, Mean Platelet Volume 5.5L, Neutrophils (%) (Auto) , Lymphocytes (%) (Auto) , Monocytes (%) (Auto) , Eosinophils (%) (Auto) , Basophils (%) (Auto) , Differential Total Cells Counted 100, Neutrophils % ( Manual) 53, Lymphocytes % (Manual) 17L, Monocytes % (Manual) 25H, Eosinophils % (Manual) 5H, Basophils % (Manual) 0, Band Neutrophils 0, Platelet Estimate DecreasedL, Platelet Morphology Normal, Hypochromasia 2+, Anisocytosis 2+, Macrocytosis 1+, Sodium Level 140, Potassium Level 3.4L, Chloride Level 108H, Carbon Dioxide Level 25, Anion Gap 7, Blood Urea Nitrogen 10, Creatinine 1.4H, Estimat Glomerular Filtration Rate , Glucose Level 108H, Calcium Level 8.3L Current Medications Medications (Trade) Dose Ordered Sig/Antionette Route PRN Reason Start Time Stop Time Status Last Admin Dose Admin Acetaminophen (Tylenol) 650 mg Q4H PRN ORAL fever 04/12/17 15:45 05/12/17 15:44 Al Hydroxide/Mg Hydroxide (Mylanta II) 30 ml Q6H PRN ORAL dyspepsia 04/12/17 15:45 05/12/17 15:44 Allopurinol (Zyloprim) 300 mg DAILY ORAL 04/13/17 09:00 05/13/17 08:59 04/14/17 09:16 Amlodipine Besylate (Norvasc) 5 mg DAILY ORAL 04/13/17 09:00 05/13/17 08:59 04/14/17 09:14 Atorvastatin Calcium (Lipitor) 80 mg QHS ORAL 04/12/17 21:00 05/12/17 20:59 04/13/17 21:20 Dextrose (Dextrose 50%) STAT PRN IV Hypoglycemia 04/12/17 15:45 05/12/17 15:44 Dextrose/Sodium Chloride 1,000 ml @ 75 mls/hr [id number] IV 04/12/17 17:45 05/12/17 17:44 04/14/17 14:50 Diphenhydramine HCl (Benadryl) 25 mg Q6H PRN ORAL Itching/Pruritis 04/12/17 15:45 05/12/17 15:44 Diphenoxylate HCl/ Atropine (Lomotil) 2.5 mg Q4H PRN ORAL Diarrhea 04/12/17 16:15 05/12/17 16:14 04/14/17 14:52 Dronabinol (Marinol) 5 mg BID ORAL 04/12/17 18:00 05/12/17 17:59 04/14/17 18:42 Ertapenem 1 gm/ Sodium Chloride 55 ml @ 110 mls/hr Q24H IVPB 04/14/17 18:00 04/19/17 17:59 04/14/17 18:43 Finasteride (Proscar) 5 mg DAILY ORAL 04/13/17 09:00 05/13/17 08:59 04/14/17 09:14 Heparin Sodium (Porcine) (Heparin 5000 units/ml) 5,000 units EVERY 12 HOURS SUBQ 04/12/17 21:00 05/12/17 20:59 Lorazepam (Ativan 2mg/ml 1ml) 1 mg Q4H PRN IV agitation 04/12/17 15:45 04/19/17 15:44 Metoclopramide HCl (Reglan) 10 mg Q6H PRN IVP SEVERE NAUSEA 04/12/17 15:45 05/12/17 15:44 Metoprolol Tartrate (Lopressor) 25 mg Q12HR ORAL 04/12/17 21:00 05/12/17 20:59 04/14/17 09:16 Metronidazole (Flagyl) 500 mg Q8H ORAL 04/14/17 20:00 04/21/17 19:59 Nitroglycerin (Ntg) 0.4 mg Q5M X 3 DOSES PRN SL Prn Chest Pain 04/12/17 15:45 05/12/17 15:44 Nortriptyline HCl (Pamelor) 25 mg QHS ORAL 04/12/17 21:00 05/12/17 20:59 04/13/17 21:20 Ondansetron HCl (Zofran) 4 mg Q6H PRN IVP Nausea & Vomiting 04/12/17 15:45 05/12/17 15:44 Polyethylene Glycol (Miralax) 17 gm HSPRN PRN ORAL Constipation 04/12/17 15:45 05/12/17 15:44 Pregabalin (Lyrica) 75 mg BIDPRN PRN ORAL NEUROPATHY 04/12/17 15:45 05/12/17 15:44 Promethazine HCl (Phenergan) 25 mg Q8H PRN IV refractory nausea 04/12/17 15:45 05/12/17 15:44 Ranitidine HCl (Zantac) 150 mg BEDTIME ORAL 04/13/17 21:00 05/13/17 20:59 04/13/17 21:20 Tamsulosin HCl (Flomax) 0.4 mg BID ORAL 04/12/17 18:00 05/12/17 17:59 04/14/17 18:43 Temazepam (Restoril) 15 mg HSPRN PRN ORAL Insomnia 04/12/17 15:45 04/19/17 15:44 Vancomycin HCl (Vancomycin) 250 mg FOUR TIMES A DAY ORAL 04/14/17 18:00 04/21/17 17:59 04/14/17 18:44 GOLDEN LIM Apr 14, 2017 18:56
--- NOTE | 2017-04-14 19:26 | Internal Med Progress Note ---
Subjective Date of Service: Apr 14, 2017 Physician Name Elias,Elly Attending Physician Jovani Villagomez MD Current Medications Medications (Trade) Dose Ordered Sig/Antionette Route PRN Reason Start Time Stop Time Status Last Admin Dose Admin Acetaminophen (Tylenol) 650 mg Q4H PRN ORAL fever 04/12/17 15:45 05/12/17 15:44 Al Hydroxide/Mg Hydroxide (Mylanta II) 30 ml Q6H PRN ORAL dyspepsia 04/12/17 15:45 05/12/17 15:44 Allopurinol (Zyloprim) 300 mg DAILY ORAL 04/13/17 09:00 05/13/17 08:59 04/14/17 09:16 Amlodipine Besylate (Norvasc) 5 mg DAILY ORAL 04/13/17 09:00 05/13/17 08:59 04/14/17 09:14 Atorvastatin Calcium (Lipitor) 80 mg QHS ORAL 04/12/17 21:00 05/12/17 20:59 04/13/17 21:20 Dextrose (Dextrose 50%) STAT PRN IV Hypoglycemia 04/12/17 15:45 05/12/17 15:44 Dextrose/Sodium Chloride 1,000 ml @ 75 mls/hr [id number] IV 04/12/17 17:45 05/12/17 17:44 04/14/17 14:50 Diphenhydramine HCl (Benadryl) 25 mg Q6H PRN ORAL Itching/Pruritis 04/12/17 15:45 05/12/17 15:44 Diphenoxylate HCl/ Atropine (Lomotil) 2.5 mg Q4H PRN ORAL Diarrhea 04/12/17 16:15 05/12/17 16:14 04/14/17 14:52 Dronabinol (Marinol) 5 mg BID ORAL 04/12/17 18:00 05/12/17 17:59 04/14/17 18:42 Ertapenem 1 gm/ Sodium Chloride 55 ml @ 110 mls/hr Q24H IVPB 04/14/17 18:00 04/19/17 17:59 04/14/17 18:43 Finasteride (Proscar) 5 mg DAILY ORAL 04/13/17 09:00 05/13/17 08:59 04/14/17 09:14 Heparin Sodium (Porcine) (Heparin 5000 units/ml) 5,000 units EVERY 12 HOURS SUBQ 04/12/17 21:00 05/12/17 20:59 Lorazepam (Ativan 2mg/ml 1ml) 1 mg Q4H PRN IV agitation 04/12/17 15:45 04/19/17 15:44 Metoclopramide HCl (Reglan) 10 mg Q6H PRN IVP SEVERE NAUSEA 04/12/17 15:45 05/12/17 15:44 Metoprolol Tartrate (Lopressor) 25 mg Q12HR ORAL 04/12/17 21:00 05/12/17 20:59 04/14/17 09:16 Metronidazole (Flagyl) 500 mg Q8H ORAL 04/14/17 20:00 04/21/17 19:59 Nitroglycerin (Ntg) 0.4 mg Q5M X 3 DOSES PRN SL Prn Chest Pain 04/12/17 15:45 05/12/17 15:44 Nortriptyline HCl (Pamelor) 25 mg QHS ORAL 04/12/17 21:00 05/12/17 20:59 04/13/17 21:20 Ondansetron HCl (Zofran) 4 mg Q6H PRN IVP Nausea & Vomiting 04/12/17 15:45 05/12/17 15:44 Polyethylene Glycol (Miralax) 17 gm HSPRN PRN ORAL Constipation 04/12/17 15:45 05/12/17 15:44 Pregabalin (Lyrica) 75 mg BIDPRN PRN ORAL NEUROPATHY 04/12/17 15:45 05/12/17 15:44 Promethazine HCl (Phenergan) 25 mg Q8H PRN IV refractory nausea 04/12/17 15:45 05/12/17 15:44 Ranitidine HCl (Zantac) 150 mg BEDTIME ORAL 04/13/17 21:00 05/13/17 20:59 04/13/17 21:20 Tamsulosin HCl (Flomax) 0.4 mg BID ORAL 04/12/17 18:00 05/12/17 17:59 04/14/17 18:43 Temazepam (Restoril) 15 mg HSPRN PRN ORAL Insomnia 04/12/17 15:45 04/19/17 15:44 Vancomycin HCl (Vancomycin) 250 mg FOUR TIMES A DAY ORAL 04/14/17 18:00 04/21/17 17:59 04/14/17 18:44 Allergies: Coded Allergies: No Known Allergies (Unverified , 04/23/13) ROS Limited/Unobtainable: No Constitutional: Reports: no symptoms HEENT: Reports: no symptoms Cardiovascular: Reports: no symptoms Respiratory: Reports: no symptoms Gastrointestinal/Abdominal: Reports: abdominal pain Genitourinary: Reports: no symptoms Neurologic/Psychiatric: Reports: no symptoms Subjective 76 YO M admitted with left lower quadrant pain. Now UTI. Cover for Int Med-Dr Villagomez. Objective Last Vital Signs Date Time Temp Pulse Resp B/P (MAP) Pulse Ox O2 Delivery O2 Flow Rate FiO2 04/14/17 16:00 97.9 64 20 132/73 99 Room Air Laboratory Tests Test 04/14/17 05:20 04/14/17 10:45 Phosphorus Level 3.0 MG/DL (2.5-4.9) Magnesium Level 1.3 MG/DL (1.8-2.4) L Vitamin D 25-Hydroxy Pending 25-Hydroxy Vitamin D2 Pending 25-Hydroxy Vitamin D3 Pending White Blood Count 3.2 K/UL (4.8-10.8) L Red Blood Count 3.04 M/UL (4.70-6.10) L Hemoglobin 9.4 G/DL (14.2-18.0) L Hematocrit 30.8 % (42.0-52.0) L Mean Corpuscular Volume 102 FL (80-99) H Mean Corpuscular Hemoglobin 31.1 PG (27.0-31.0) H Mean Corpuscular Hemoglobin Concent 30.7 G/DL (32.0-36.0) L Red Cell Distribution Width 14.5 % (11.6-14.8) Platelet Count 111 K/UL (150-450) L Mean Platelet Volume 5.5 FL (6.5-10.1) L Neutrophils (%) (Auto) % (45.0-75.0) Lymphocytes (%) (Auto) % (20.0-45.0) Monocytes (%) (Auto) % (1.0-10.0) Eosinophils (%) (Auto) % (0.0-3.0) Basophils (%) (Auto) % (0.0-2.0) Differential Total Cells Counted 100 Neutrophils % (Manual) 53 % (45-75) Lymphocytes % (Manual) 17 % (20-45) L Monocytes % (Manual) 25 % (1-10) H Eosinophils % (Manual) 5 % (0-3) H Basophils % (Manual) 0 % (0-2) Band Neutrophils 0 % (0-8) Platelet Estimate Decreased L Platelet Morphology Normal Hypochromasia 2+ Anisocytosis 2+ Macrocytosis 1+ Sodium Level 140 MMOL/L (136-145) Potassium Level 3.4 MMOL/L (3.5-5.1) L Chloride Level 108 MMOL/L (98-107) H Carbon Dioxide Level 25 MMOL/L (21-32) Anion Gap 7 mmol/L (5-15) Blood Urea Nitrogen 10 mg/dL (7-18) Creatinine 1.4 MG/DL (0.55-1.30) H Estimat Glomerular Filtration Rate mL/min (>60) Glucose Level 108 MG/DL (74-106) H Calcium Level 8.3 MG/DL (8.5-10.1) L Microbiology Date/Time Source Procedure Growth Status 04/12/17 12:12 Urine,Clean Catch Urine Culture - Final Escherichia Coli - Esbl Complete Intake and Output 04/14/17 04/15/17 19:00 07:00 Intake Total 420 ml Balance 420 ml Intake Oral 420 ml Objective General Appearance: WD/WN, no apparent distress, alert EENT: PERRL/EOMI, normal ENT inspection, TMs normal Neck: non-tender, normal alignment, supple, normal inspection Cardiovascular: normal peripheral pulses, normal rate, regular rhythm, no gallop/murmur, no JVD Respiratory/Chest: chest wall non-tender, lungs clear, normal breath sounds, no respiratory distress, no accessory muscle use Abdomen: normal bowel sounds, soft, no organomegaly, guarding, rebound, tender Extremities: normal range of motion, non-tender 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 Coli-Multi drug resistant. See ID note (3) Clostridium difficile colitis Assessment & Plan: See GI note (4) Amyloidosis Assessment & Plan: GI-see gastroenterology note (5) Multiple myeloma (6) HTN (hypertension) Assessment & Plan: Cont norvasc and lopressor (7) Anemia (8) CAD (coronary artery disease) (9) BPH (benign prostatic hyperplasia) Status: not improved ELLY ELIAS Apr 14, 2017 19:26
[2017-04-14 20:00] VITALS: BP 123/76
[2017-04-14] MEDS: Nortriptyline 25mg cap ORAL SCH (22:20)
[2017-04-14] MEDS: metroNIDAZOLE 500mg tab ORAL SCH (22:21)
[2017-04-14] MEDS: Atorvastatin 80mg tab ORAL SCH (22:21)
--- NOTE | 2017-04-14 22:45 | Consultation ---
DATE OF CONSULTATION: 04/14/2017 INFECTIOUS DISEASES CONSULTATION CONSULTING PHYSICIAN: Riley Ramey M.D. REFERRING PHYSICIAN: Marilou Garcia M.D. REASON FOR CONSULTATION: Evaluation of the patient for C. diff, urinary tract infection, and antibiotic management. HISTORY OF PRESENT ILLNESS: The patient is a 76-year-old male, who was admitted to this medical center with dysuria and diarrhea due to C. diff. Infectious Disease consultation has been requested for further evaluation of the patient and antibiotic management. According to the patient, the patient has multiple episodes of loose stool recently and also had dysuria prior to this admission. He is having fever and chills. PAST MEDICAL HISTORY: 1. History of C. diff colitis. 2. History of multiple myeloma on chemo. 3. History of GI trach amyloidosis. 4. History of appendicitis. 5. History of intraabdominal abscess in 2014. 6. Hypertension. 7. Prostate cancer. 8. TURP. 9. CAD. 10. CABG. ALLERGIES: No known drug allergies. MEDICATIONS: Oral vancomycin, Levaquin, and Rocephin. PHYSICAL EXAMINATION: VITAL SIGNS: Temperature 97.5 degrees, pulse 86, respiratory rate 18, and blood pressure 121/59. HEENT: No pale conjunctivae. No icterus. NECK: No lymphadenopathy. CHEST: Clear. HEART: S1 and S2. ABDOMEN: Soft and nontender. Questionable left flank tenderness. EXTREMITIES: No cyanosis. NEUROLOGIC: Awake and alert. LABORATORY DATA: WBC of 3.2, hemoglobin 9.4, and platelets 111. UA, too numerous to count white blood cells. BUN 10 and creatinine 1.4. Urine culture is growing ESBL E. coli. ASSESSMENT: The patient is a 76-year-old male with: 1. Extended spectrum beta-lactamases Escherichia coli urinary tract infection. 2. History of recurrent Clostridium difficile. 3. Leukopenia. 4. Afebrile. PLAN: 1. We will continue the patient on oral vancomycin and add Flagyl day #1. 2. Discontinue Levaquin and Rocephin and start the patient on Invanz day #06/19. 3. Monitor CBC. 4. Monitor BMP. 5. We will send blood culture. 6. Based on the patient's clinical course and labs, we will do further recommendations. Thank you, Dr. Garcia, for allowing me to participate in the care of this patient. I will follow the patient during this hospitalization. Riley Ramey M.D. DR: JOVANNA JOB#: [id number] CC:
[2017-04-15] VITALS: BP 127/61
[2017-04-15] MEDS: metroNIDAZOLE 500mg tab ORAL SCH ×3 (03:54→20:41)
[2017-04-15 04:00] VITALS: BP 119/68
[2017-04-15 08:00] VITALS: BP 131/70
[2017-04-15] MEDS: Vancomycin oral 125mg/2.5ml ORAL SCH ×4 (09:00→20:43)
[2017-04-15] MEDS: Heparin 5000 units/ml inj SUBQ SCH ×2 (09:00→20:43)
[2017-04-15] MEDS: Allopurinol 100mg Tab ORAL SCH ×2 (09:00→10:12)
--- NOTE | 2017-04-15 09:48 | Infectious Diseases Prog Note ---
Assessment/Plan Assessment/Plan ASSESSMENT: The patient is a 76-year-old male with: Extended spectrum beta-lactamases E. coli urinary tractUTI Diarrhea due to recurrent C Diff History of recurrent Clostridium difficile.( recent +ve 03/29/17) Leukopenia. Afebrile. History of recurrent C. diff colitis History of multiple myeloma on chemo. History of GI trach amyloidosis. History of appendicitis. History of intraabdominal abscess in 2014. Hypertension. Prostate cancer. TURP. CAD. CABG PLAN: Cont pt on oral vancomycin and add Flagyl day # 2 Invanz day #2 Monitor CBC Monitor BMP. Monitor blood culture Subjective Constitutional: Denies: no symptoms, fever, chills, fatigue, anorexia, drenching sweats, other Allergies: Coded Allergies: No Known Allergies (Unverified , 04/23/13) Subjective Diarrhea improving Objective Vital Signs Last 24 Hour Vital Signs Date Time Temp Pulse Resp B/P (MAP) Pulse Ox O2 Delivery O2 Flow Rate FiO2 04/15/17 08:00 98.1 68 18 131/70 100 Room Air 04/15/17 04:00 97.7 59 20 119/68 99 Room Air 04/15/17 00:00 97.9 65 20 127/61 100 Room Air 04/14/17 22:21 66 123/76 04/14/17 20:00 97.9 66 20 123/76 99 Room Air 04/14/17 16:00 97.9 64 20 132/73 99 Room Air 04/14/17 12:00 97.7 63 21 121/59 99 Room Air Height (Feet): 6 Height (Inches): 1.00 Weight (Pounds): 197 HEENT: mucous membranes moist Respiratory/Chest: no accessory muscle use Cardiovascular: no gallop/murmur Abdomen: no organomegaly Microbiology Date/Time Source Procedure Growth Status 04/12/17 12:12 Urine,Clean Catch Urine Culture - Final Escherichia Coli - Esbl Complete Laboratory Tests Test 04/14/17 10:45 White Blood Count 3.2 K/UL (4.8-10.8) L Red Blood Count 3.04 M/UL (4.70-6.10) L Hemoglobin 9.4 G/DL (14.2-18.0) L Hematocrit 30.8 % (42.0-52.0) L Mean Corpuscular Volume 102 FL (80-99) H Mean Corpuscular Hemoglobin 31.1 PG (27.0-31.0) H Mean Corpuscular Hemoglobin Concent 30.7 G/DL (32.0-36.0) L Red Cell Distribution Width 14.5 % (11.6-14.8) Platelet Count 111 K/UL (150-450) L Mean Platelet Volume 5.5 FL (6.5-10.1) L Neutrophils (%) (Auto) % (45.0-75.0) Lymphocytes (%) (Auto) % (20.0-45.0) Monocytes (%) (Auto) % (1.0-10.0) Eosinophils (%) (Auto) % (0.0-3.0) Basophils (%) (Auto) % (0.0-2.0) Differential Total Cells Counted 100 Neutrophils % (Manual) 53 % (45-75) Lymphocytes % (Manual) 17 % (20-45) L Monocytes % (Manual) 25 % (1-10) H Eosinophils % (Manual) 5 % (0-3) H Basophils % (Manual) 0 % (0-2) Band Neutrophils 0 % (0-8) Platelet Estimate Decreased L Platelet Morphology Normal Hypochromasia 2+ Anisocytosis 2+ Macrocytosis 1+ Sodium Level 140 MMOL/L (136-145) Potassium Level 3.4 MMOL/L (3.5-5.1) L Chloride Level 108 MMOL/L (98-107) H Carbon Dioxide Level 25 MMOL/L (21-32) Anion Gap 7 mmol/L (5-15) Blood Urea Nitrogen 10 mg/dL (7-18) Creatinine 1.4 MG/DL (0.55-1.30) H Estimat Glomerular Filtration Rate mL/min (>60) Glucose Level 108 MG/DL (74-106) H Calcium Level 8.3 MG/DL (8.5-10.1) L Current Medications Medications (Trade) Dose Ordered Sig/Antionette Route PRN Reason Start Time Stop Time Status Last Admin Dose Admin Acetaminophen (Tylenol) 650 mg Q4H PRN ORAL fever 04/12/17 15:45 05/12/17 15:44 Al Hydroxide/Mg Hydroxide (Mylanta II) 30 ml Q6H PRN ORAL dyspepsia 04/12/17 15:45 05/12/17 15:44 Allopurinol (Zyloprim) 300 mg DAILY ORAL 04/13/17 09:00 05/13/17 08:59 04/14/17 09:16 Amlodipine Besylate (Norvasc) 5 mg DAILY ORAL 04/13/17 09:00 05/13/17 08:59 04/14/17 09:14 Atorvastatin Calcium (Lipitor) 80 mg QHS ORAL 04/12/17 21:00 05/12/17 20:59 04/14/17 22:21 Dextrose (Dextrose 50%) STAT PRN IV Hypoglycemia 04/12/17 15:45 05/12/17 15:44 Dextrose/Sodium Chloride 1,000 ml @ 75 mls/hr [id number] IV 04/12/17 17:45 05/12/17 17:44 04/14/17 14:50 Diphenhydramine HCl (Benadryl) 25 mg Q6H PRN ORAL Itching/Pruritis 04/12/17 15:45 05/12/17 15:44 Diphenoxylate HCl/ Atropine (Lomotil) 2.5 mg Q4H PRN ORAL Diarrhea 04/12/17 16:15 05/12/17 16:14 04/14/17 14:52 Dronabinol (Marinol) 5 mg BID ORAL 04/12/17 18:00 05/12/17 17:59 04/14/17 18:42 Ertapenem 1 gm/ Sodium Chloride 55 ml @ 110 mls/hr Q24H IVPB 04/14/17 18:00 04/19/17 17:59 04/14/17 18:43 Finasteride (Proscar) 5 mg DAILY ORAL 04/13/17 09:00 05/13/17 08:59 04/14/17 09:14 Heparin Sodium (Porcine) (Heparin 5000 units/ml) 5,000 units EVERY 12 HOURS SUBQ 04/12/17 21:00 05/12/17 20:59 Lorazepam (Ativan 2mg/ml 1ml) 1 mg Q4H PRN IV agitation 04/12/17 15:45 04/19/17 15:44 Metoclopramide HCl (Reglan) 10 mg Q6H PRN IVP SEVERE NAUSEA 04/12/17 15:45 05/12/17 15:44 Metoprolol Tartrate (Lopressor) 25 mg Q12HR ORAL 04/12/17 21:00 05/12/17 20:59 04/14/17 22:21 Metronidazole (Flagyl) 500 mg Q8H ORAL 04/14/17 20:00 04/21/17 19:59 04/15/17 03:54 Nitroglycerin (Ntg) 0.4 mg Q5M X 3 DOSES PRN SL Prn Chest Pain 04/12/17 15:45 05/12/17 15:44 Nortriptyline HCl (Pamelor) 25 mg QHS ORAL 04/12/17 21:00 05/12/17 20:59 04/14/17 22:20 Ondansetron HCl (Zofran) 4 mg Q6H PRN IVP Nausea & Vomiting 04/12/17 15:45 05/12/17 15:44 Polyethylene Glycol (Miralax) 17 gm HSPRN PRN ORAL Constipation 04/12/17 15:45 05/12/17 15:44 Pregabalin (Lyrica) 75 mg BIDPRN PRN ORAL NEUROPATHY 04/12/17 15:45 05/12/17 15:44 Promethazine HCl (Phenergan) 25 mg Q8H PRN IV refractory nausea 04/12/17 15:45 05/12/17 15:44 Ranitidine HCl (Zantac) 150 mg BEDTIME ORAL 04/13/17 21:00 05/13/17 20:59 04/14/17 22:21 Tamsulosin HCl (Flomax) 0.4 mg BID ORAL 04/12/17 18:00 05/12/17 17:59 04/14/17 18:43 Temazepam (Restoril) 15 mg HSPRN PRN ORAL Insomnia 04/12/17 15:45 04/19/17 15:44 Vancomycin HCl (Vancomycin) 250 mg FOUR TIMES A DAY ORAL 04/14/17 18:00 04/21/17 17:59 04/14/17 18:44 SRIKANTH ANAND M.D. Apr 15, 2017 09:48
[2017-04-15] MEDS: Tamsulosin 0.4mg cap ORAL SCH ×2 (10:11→16:57)
[2017-04-15] MEDS: Dronabinol 2.5mg Cap ORAL SCH ×2 (10:11→16:58)
[2017-04-15] MEDS: Metoprolol 25mg tab ORAL SCH ×2 (10:13→20:43)
[2017-04-15] MEDS ORDERED: D5 1/2NS 1000ml IV ONE (10:47)
[2017-04-15] MEDS ORDERED: Tubing IV Secondary IV ONE (10:47)
[2017-04-15 12:00] VITALS: BP 144/80
[2017-04-15] MEDS ORDERED: Lidocaine 1% Plain 30 ml INJ ONE (12:00)
[2017-04-15] MEDS ORDERED: Heparin 2000 units/Ns 1000ml INJ ONE (12:00)
[2017-04-15] MEDS: D5 1/2NS 1,000 ML IV SCH (12:25)
--- NOTE | 2017-04-15 15:03 | GI Progress Note ---
Assessment/Plan Problems: (1) Chemotherapy-induced diarrhea ICD Codes: K52.1 - Toxic gastroenteritis and colitis; T45.1X5A - Adverse effect of antineoplastic and immunosuppressive drugs, initial encounter SNOMED: 340755347, 280318285 (2) Clostridium difficile colitis ICD Codes: A04.7 - Enterocolitis due to Clostridium difficile SNOMED: 960826933 (3) Anemia ICD Codes: D64.9 - Anemia SNOMED: 174590759 (4) Clostridium difficile diarrhea ICD Codes: A04.72 - Enterocolitis due to Clostridium difficile, not specified as recurrent SNOMED: 4542007280734 (5) Amyloidosis ICD Codes: E85.9 - Amyloidosis, unspecified SNOMED: 22365525 Status: stable Status Narrative Discussed with Dr. Flores. Assessment/Plan s/p EGD/colonoscopy 2015 >> amyloidosis cdiff positive stool culture normal folate/B12 WNL Vit D deficiency abdominal U/S unremarkable PICC placement for abx per ID monitor H&H, prn transfusions low residual/fiber diet / lactose free diet IV hydration + electrolyte replacement lomotil prn H2B fu labs fu Vit D dc planning Subjective Subjective diarrhea x 4 this morning Objective Last 24 Hour Vital Signs Date Time Temp Pulse Resp B/P (MAP) Pulse Ox O2 Delivery O2 Flow Rate FiO2 04/15/17 10:13 71 139/57 04/15/17 10:13 71 139/57 04/15/17 08:00 98.1 68 18 131/70 100 Room Air 04/15/17 04:00 97.7 59 20 119/68 99 Room Air 04/15/17 00:00 97.9 65 20 127/61 100 Room Air 04/14/17 22:21 66 123/76 04/14/17 20:00 97.9 66 20 123/76 99 Room Air 04/14/17 16:00 97.9 64 20 132/73 99 Room Air Height (Feet): 6 Height (Inches): 1.00 Weight (Pounds): 197 General Appearance: WD/WN, no apparent distress, alert Cardiovascular: normal rate Respiratory/Chest: normal breath sounds, no respiratory distress Abdominal Exam: normal bowel sounds, non tender, soft Extremities: normal range of motion, non-tender Domenica Chanel N.PViv Apr 15, 2017 15:03
--- NOTE | 2017-04-15 15:17 | Pulmonology Progress Note ---
Assessment/Plan Problems: (1) Sepsis (2) Multiple myeloma (3) UTI (urinary tract infection) (4) C. difficile colitis (5) Hypertension Assessment/Plan PICC line today continue abx check cultures iv fluids check electrolytes all notes and meds reviewed Subjective ROS Limited/Unobtainable: No Interval Events: no peripheral line, still has 6 times a day diarrhea Allergies: Coded Allergies: No Known Allergies (Unverified , 04/23/13) Objective Last 24 Hour Vital Signs Date Time Temp Pulse Resp B/P (MAP) Pulse Ox O2 Delivery O2 Flow Rate FiO2 04/15/17 10:13 71 139/57 04/15/17 10:13 71 139/57 04/15/17 08:00 98.1 68 18 131/70 100 Room Air 04/15/17 04:00 97.7 59 20 119/68 99 Room Air 04/15/17 00:00 97.9 65 20 127/61 100 Room Air 04/14/17 22:21 66 123/76 04/14/17 20:00 97.9 66 20 123/76 99 Room Air 04/14/17 16:00 97.9 64 20 132/73 99 Room Air Objective General Appearance: WD/WN, no apparent distress Lines, tubes and drains: peripheral, HEENT: normocephalic, anicteric Neck: non-tender, normal alignment Respiratory/Chest: chest wall non-tender, lungs clear Cardiovascular/Chest: normal rate, regular rhythm Abdomen: non tender, soft Genitourinary/Rectal: normal genital exam, normal rectal exam Extremities: normal range of motion, non-pitting Current Medications Medications (Trade) Dose Ordered Sig/Antionette Route PRN Reason Start Time Stop Time Status Last Admin Dose Admin Acetaminophen (Tylenol) 650 mg Q4H PRN ORAL fever 04/12/17 15:45 05/12/17 15:44 Al Hydroxide/Mg Hydroxide (Mylanta II) 30 ml Q6H PRN ORAL dyspepsia 04/12/17 15:45 05/12/17 15:44 Allopurinol (Zyloprim) 300 mg DAILY ORAL 04/13/17 09:00 05/13/17 08:59 04/14/17 09:16 Amlodipine Besylate (Norvasc) 5 mg DAILY ORAL 04/13/17 09:00 05/13/17 08:59 04/15/17 10:13 Atorvastatin Calcium (Lipitor) 80 mg QHS ORAL 04/12/17 21:00 05/12/17 20:59 04/14/17 22:21 Chlorhexidine Gluconate (Lisette-Hex 2%) 1 applic DAILY@2000 TOPIC 04/15/17 20:00 05/15/17 19:59 Dextrose (Dextrose 50%) STAT PRN IV Hypoglycemia 04/12/17 15:45 05/12/17 15:44 Dextrose/Sodium Chloride 1,000 ml @ 75 mls/hr [id number] IV 04/12/17 17:45 05/12/17 17:44 04/14/17 14:50 Diphenhydramine HCl (Benadryl) 25 mg Q6H PRN ORAL Itching/Pruritis 04/12/17 15:45 05/12/17 15:44 Diphenoxylate HCl/ Atropine (Lomotil) 2.5 mg Q4H PRN ORAL Diarrhea 04/12/17 16:15 05/12/17 16:14 04/14/17 14:52 Dronabinol (Marinol) 5 mg BID ORAL 04/12/17 18:00 05/12/17 17:59 04/15/17 10:11 Ertapenem 1 gm/ Sodium Chloride 55 ml @ 110 mls/hr Q24H IVPB 04/14/17 18:00 04/19/17 17:59 04/14/17 18:43 Finasteride (Proscar) 5 mg DAILY ORAL 04/13/17 09:00 05/13/17 08:59 04/15/17 10:11 Heparin Sodium (Porcine) (Heparin 5000 units/ml) 5,000 units EVERY 12 HOURS SUBQ 04/12/17 21:00 05/12/17 20:59 Lorazepam (Ativan 2mg/ml 1ml) 1 mg Q4H PRN IV agitation 04/12/17 15:45 04/19/17 15:44 Metoclopramide HCl (Reglan) 10 mg Q6H PRN IVP SEVERE NAUSEA 04/12/17 15:45 05/12/17 15:44 Metoprolol Tartrate (Lopressor) 25 mg Q12HR ORAL 04/12/17 21:00 05/12/17 20:59 04/15/17 10:13 Metronidazole (Flagyl) 500 mg Q8H ORAL 04/14/17 20:00 04/21/17 19:59 04/15/17 13:27 Nitroglycerin (Ntg) 0.4 mg Q5M X 3 DOSES PRN SL Prn Chest Pain 04/12/17 15:45 05/12/17 15:44 Nortriptyline HCl (Pamelor) 25 mg QHS ORAL 04/12/17 21:00 05/12/17 20:59 04/14/17 22:20 Ondansetron HCl (Zofran) 4 mg Q6H PRN IVP Nausea & Vomiting 04/12/17 15:45 05/12/17 15:44 Polyethylene Glycol (Miralax) 17 gm HSPRN PRN ORAL Constipation 04/12/17 15:45 05/12/17 15:44 Pregabalin (Lyrica) 75 mg BIDPRN PRN ORAL NEUROPATHY 04/12/17 15:45 05/12/17 15:44 Promethazine HCl (Phenergan) 25 mg Q8H PRN IV refractory nausea 04/12/17 15:45 05/12/17 15:44 Ranitidine HCl (Zantac) 150 mg BEDTIME ORAL 04/13/17 21:00 05/13/17 20:59 04/14/17 22:21 Tamsulosin HCl (Flomax) 0.4 mg BID ORAL 04/12/17 18:00 05/12/17 17:59 04/15/17 10:11 Temazepam (Restoril) 15 mg HSPRN PRN ORAL Insomnia 04/12/17 15:45 04/19/17 15:44 Vancomycin HCl (Vancomycin) 250 mg FOUR TIMES A DAY ORAL 04/14/17 18:00 04/21/17 17:59 04/14/17 18:44 GOLDEN LIM Apr 15, 2017 15:17
[2017-04-15 16:59] VITALS: BP 103/47
[2017-04-15] MEDS: Ertapenem 1 GM in NS 55 ML IVPB SCH (16:59)
--- NOTE | 2017-04-15 17:04 | Diagnostic Imaging Report ---
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 The right upper extremity was prepped with alcohol. All elements of maximal sterile barrier technique were followed including usage of a cap, mask, sterile gown, sterile gloves, hand hygiene and a large sterile sheet. Sonographic evaluation of the upper extremity was performed demonstrating a patent and compressible brachial vein. Access was obtained under real-time ultrasound guidance (with utilization of sterile gel and sterile probe cover) and digital image was saved and archived. An .018 wire was introduced. Needle exchanged for a 5 Vincentian peel-away sheath. Measurements were obtained. A 5 Vincentian dual-lumen Power PICC line catheter was cut to 38 cm and introduced over the wire. Peel-away sheath and wire were removed.Catheter was secured to the skin using 2-0 Prolene suture. Both ports aspirate and flush easily. Fluoroscopic Images show distal tip in the superior vena cava. Total fluoroscopic time 0.2 minutes. Impression: Successful placement of an upper extremity PICC line catheter
[2017-04-15 20:00] VITALS: BP 131/57
[2017-04-15] MEDS ORDERED: Dyna-Hex 2% Top Sol 2oz TOPIC SCH (20:00)
[2017-04-15] MEDS: Nortriptyline 25mg cap ORAL SCH (20:42)
[2017-04-15] MEDS: Atorvastatin 80mg tab ORAL SCH (20:42)
[2017-04-15] MEDS: Dyna-Hex 2% Top Sol 2oz TOPIC SCH (20:42)
--- NOTE | 2017-04-15 22:49 | Internal Med Progress Note ---
Subjective Physician Name Jovani Villagomez Attending Physician Jovani Villagomez MD Current Medications Medications (Trade) Dose Ordered Sig/Antionette Route PRN Reason Start Time Stop Time Status Last Admin Dose Admin Acetaminophen (Tylenol) 650 mg Q4H PRN ORAL fever 04/12/17 15:45 05/12/17 15:44 Al Hydroxide/Mg Hydroxide (Mylanta II) 30 ml Q6H PRN ORAL dyspepsia 04/12/17 15:45 05/12/17 15:44 Allopurinol (Zyloprim) 300 mg DAILY ORAL 04/13/17 09:00 05/13/17 08:59 04/14/17 09:16 Amlodipine Besylate (Norvasc) 5 mg DAILY ORAL 04/13/17 09:00 05/13/17 08:59 04/15/17 10:13 Atorvastatin Calcium (Lipitor) 80 mg QHS ORAL 04/12/17 21:00 05/12/17 20:59 04/15/17 20:42 Chlorhexidine Gluconate (Lisette-Hex 2%) 1 applic DAILY@2000 TOPIC 04/15/17 20:00 05/15/17 19:59 04/15/17 20:42 Dextrose (Dextrose 50%) STAT PRN IV Hypoglycemia 04/12/17 15:45 05/12/17 15:44 Dextrose/Sodium Chloride 1,000 ml @ 75 mls/hr [id number] IV 04/12/17 17:45 05/12/17 17:44 04/14/17 14:50 Diphenhydramine HCl (Benadryl) 25 mg Q6H PRN ORAL Itching/Pruritis 04/12/17 15:45 05/12/17 15:44 Diphenoxylate HCl/ Atropine (Lomotil) 2.5 mg Q4H PRN ORAL Diarrhea 04/12/17 16:15 05/12/17 16:14 04/14/17 14:52 Dronabinol (Marinol) 5 mg BID ORAL 04/12/17 18:00 05/12/17 17:59 04/15/17 16:58 Ertapenem 1 gm/ Sodium Chloride 55 ml @ 110 mls/hr Q24H IVPB 04/14/17 18:00 04/19/17 17:59 04/15/17 16:59 Finasteride (Proscar) 5 mg DAILY ORAL 04/13/17 09:00 05/13/17 08:59 04/15/17 10:11 Heparin Sodium (Porcine) (Heparin 5000 units/ml) 5,000 units EVERY 12 HOURS SUBQ 04/12/17 21:00 05/12/17 20:59 Lorazepam (Ativan 2mg/ml 1ml) 1 mg Q4H PRN IV agitation 04/12/17 15:45 04/19/17 15:44 Metoclopramide HCl (Reglan) 10 mg Q6H PRN IVP SEVERE NAUSEA 04/12/17 15:45 05/12/17 15:44 Metoprolol Tartrate (Lopressor) 25 mg Q12HR ORAL 04/12/17 21:00 05/12/17 20:59 04/15/17 20:43 Metronidazole (Flagyl) 500 mg Q8H ORAL 04/14/17 20:00 04/21/17 19:59 04/15/17 20:41 Nitroglycerin (Ntg) 0.4 mg Q5M X 3 DOSES PRN SL Prn Chest Pain 04/12/17 15:45 05/12/17 15:44 Nortriptyline HCl (Pamelor) 25 mg QHS ORAL 04/12/17 21:00 05/12/17 20:59 04/15/17 20:42 Ondansetron HCl (Zofran) 4 mg Q6H PRN IVP Nausea & Vomiting 04/12/17 15:45 05/12/17 15:44 Polyethylene Glycol (Miralax) 17 gm HSPRN PRN ORAL Constipation 04/12/17 15:45 05/12/17 15:44 Pregabalin (Lyrica) 75 mg BIDPRN PRN ORAL NEUROPATHY 04/12/17 15:45 05/12/17 15:44 Promethazine HCl (Phenergan) 25 mg Q8H PRN IV refractory nausea 04/12/17 15:45 05/12/17 15:44 Ranitidine HCl (Zantac) 150 mg BEDTIME ORAL 04/13/17 21:00 05/13/17 20:59 04/15/17 20:42 Tamsulosin HCl (Flomax) 0.4 mg BID ORAL 04/12/17 18:00 12/7/17 17:59 04/15/17 16:57 Temazepam (Restoril) 15 mg HSPRN PRN ORAL Insomnia 04/12/17 15:45 04/19/17 15:44 Vancomycin HCl (Vancomycin) 250 mg FOUR TIMES A DAY ORAL 04/14/17 18:00 04/21/17 17:59 04/15/17 20:43 Allergies: Coded Allergies: No Known Allergies (Unverified , 04/23/13) Subjective awake, alert, responsive, NAD, a lot diarrhea X 6 times Objective Last Vital Signs Date Time Temp Pulse Resp B/P (MAP) Pulse Ox O2 Delivery O2 Flow Rate FiO2 04/15/17 20:43 65 131/57 04/15/17 20:00 97.7 20 100 Room Air Intake and Output 04/15/17 04/16/17 19:00 07:00 Intake Total 350 ml Balance 350 ml Intake Oral 240 ml IV Total 110 ml # Voids 1 Objective General: No acute distress, awake and alert HEENT: NCAT, sclera anicteric, PERRL, EOMI. Neck: Supple, no significant jugular venous distention, Lungs: Good inspiratory effort, clear to auscultation bilaterally, no Wheeze or Rales. Heart: Regular rate and rhythm, normal S1/S2, no murmurs Abdomen: soft, nontender, nondistended. Normoactive bowel sounds. Extremities: No Cyanosis , clubbing or edema. Neuro: A&O x 3, Able to move all extremities Skin: warm, no rashes or lesions Psych: Normal mood and affect Assessment/Plan Assessment/Plan Extended spectrum beta-lactamases E. coli urinary tractUTI Diarrhea due to recurrent C Diff colitis History of recurrent Clostridium difficile.( recent +ve 03/29/17) Leukopenia. History of recurrent C. diff colitis Multiple myeloma Under chemotherapy History of GI trach amyloidosis. History of appendicitis. History of intraabdominal abscess in 2014. Hypertension. Prostate cancer. TURP. CAD s/p CABG PLAN: Abx: oral vancomycin and add Flagyl and Invanz IV Monitor Labs Monitor blood culture On Imodium F/U with ID recommendation Piccline placement soon. Jovani Villagomez MD Apr 15, 2017 22:49
[2017-04-16] VITALS: BP 127/81
[2017-04-16] MEDS: D5 1/2NS 1,000 ML IV SCH ×2 (01:27→13:23)
[2017-04-16] MEDS: metroNIDAZOLE 500mg tab ORAL SCH ×3 (04:00→21:08)
[2017-04-16 08:00] VITALS: BP 117/69
[2017-04-16 09:00] VITALS: BP 117/69
[2017-04-16] MEDS: Heparin 5000 units/ml inj SUBQ SCH ×2 (09:00→21:00)
--- NOTE | 2017-04-16 09:17 | Pulmonology Progress Note ---
Assessment/Plan Problems: (1) Sepsis (2) Multiple myeloma (3) UTI (urinary tract infection) (4) C. difficile colitis (5) Hypertension Assessment/Plan still diarrhea 6 times ESBL in urine continue abx check cultures iv fluids check electrolytes all notes and meds reviewed Subjective ROS Limited/Unobtainable: No Constitutional: Reports: no symptoms HEENT: Repors: no symptoms Allergies: Coded Allergies: No Known Allergies (Unverified , 04/23/13) Objective Last 24 Hour Vital Signs Date Time Temp Pulse Resp B/P (MAP) Pulse Ox O2 Delivery O2 Flow Rate FiO2 04/16/17 00:00 97.7 65 20 127/81 100 Room Air 04/15/17 20:43 65 131/57 04/15/17 20:00 97.7 65 20 131/57 100 Room Air 04/15/17 16:59 98.0 64 103/47 100 Room Air 04/15/17 12:00 97.9 62 19 144/80 100 Room Air 04/15/17 10:13 71 139/57 04/15/17 10:13 71 139/57 Objective General Appearance: WD/WN, no apparent distress Lines, tubes and drains: peripheral, HEENT: normocephalic, anicteric Neck: non-tender, normal alignment Respiratory/Chest: chest wall non-tender, lungs clear Cardiovascular/Chest: normal rate, regular rhythm Abdomen: non tender, soft Genitourinary/Rectal: normal genital exam, normal rectal exam Extremities: normal range of motion, non-pitting Current Medications Medications (Trade) Dose Ordered Sig/Antionette Route PRN Reason Start Time Stop Time Status Last Admin Dose Admin Acetaminophen (Tylenol) 650 mg Q4H PRN ORAL fever 04/12/17 15:45 05/12/17 15:44 Al Hydroxide/Mg Hydroxide (Mylanta II) 30 ml Q6H PRN ORAL dyspepsia 04/12/17 15:45 05/12/17 15:44 Allopurinol (Zyloprim) 300 mg DAILY ORAL 04/13/17 09:00 05/13/17 08:59 04/14/17 09:16 Amlodipine Besylate (Norvasc) 5 mg DAILY ORAL 04/13/17 09:00 05/13/17 08:59 04/15/17 10:13 Atorvastatin Calcium (Lipitor) 80 mg QHS ORAL 04/12/17 21:00 05/12/17 20:59 04/15/17 20:42 Chlorhexidine Gluconate (Lisette-Hex 2%) 1 applic DAILY@2000 TOPIC 04/15/17 20:00 05/15/17 19:59 04/15/17 20:42 Dextrose (Dextrose 50%) STAT PRN IV Hypoglycemia 04/12/17 15:45 05/12/17 15:44 Dextrose/Sodium Chloride 1,000 ml @ 75 mls/hr [id number] IV 04/12/17 17:45 05/12/17 17:44 04/16/17 01:27 Diphenhydramine HCl (Benadryl) 25 mg Q6H PRN ORAL Itching/Pruritis 04/12/17 15:45 05/12/17 15:44 Diphenoxylate HCl/ Atropine (Lomotil) 2.5 mg Q4H PRN ORAL Diarrhea 04/12/17 16:15 05/12/17 16:14 04/14/17 14:52 Dronabinol (Marinol) 5 mg BID ORAL 04/12/17 18:00 05/12/17 17:59 04/15/17 16:58 Ertapenem 1 gm/ Sodium Chloride 55 ml @ 110 mls/hr Q24H IVPB 04/14/17 18:00 04/19/17 17:59 04/15/17 16:59 Finasteride (Proscar) 5 mg DAILY ORAL 04/13/17 09:00 05/13/17 08:59 04/15/17 10:11 Heparin Sodium (Porcine) (Heparin 5000 units/ml) 5,000 units EVERY 12 HOURS SUBQ 04/12/17 21:00 05/12/17 20:59 Loperamide HCl (Imodium) 2 mg Q8HR ORAL 04/16/17 09:00 05/16/17 08:59 Lorazepam (Ativan 2mg/ml 1ml) 1 mg Q4H PRN IV agitation 04/12/17 15:45 04/19/17 15:44 Metoclopramide HCl (Reglan) 10 mg Q6H PRN IVP SEVERE NAUSEA 04/12/17 15:45 05/12/17 15:44 Metoprolol Tartrate (Lopressor) 25 mg Q12HR ORAL 04/12/17 21:00 05/12/17 20:59 04/15/17 20:43 Metronidazole (Flagyl) 500 mg Q8H ORAL 04/14/17 20:00 04/21/17 19:59 04/16/17 04:00 Nitroglycerin (Ntg) 0.4 mg Q5M X 3 DOSES PRN SL Prn Chest Pain 04/12/17 15:45 05/12/17 15:44 Nortriptyline HCl (Pamelor) 25 mg QHS ORAL 04/12/17 21:00 05/12/17 20:59 04/15/17 20:42 Ondansetron HCl (Zofran) 4 mg Q6H PRN IVP Nausea & Vomiting 04/12/17 15:45 05/12/17 15:44 Polyethylene Glycol (Miralax) 17 gm HSPRN PRN ORAL Constipation 04/12/17 15:45 05/12/17 15:44 Pregabalin (Lyrica) 75 mg BIDPRN PRN ORAL NEUROPATHY 04/12/17 15:45 05/12/17 15:44 Promethazine HCl (Phenergan) 25 mg Q8H PRN IV refractory nausea 04/12/17 15:45 05/12/17 15:44 Ranitidine HCl (Zantac) 150 mg BEDTIME ORAL 04/13/17 21:00 05/13/17 20:59 04/15/17 20:42 Tamsulosin HCl (Flomax) 0.4 mg BID ORAL 04/12/17 18:00 05/12/17 17:59 04/15/17 16:57 Temazepam (Restoril) 15 mg HSPRN PRN ORAL Insomnia 04/12/17 15:45 04/19/17 15:44 Vancomycin HCl (Vancomycin) 250 mg FOUR TIMES A DAY ORAL 04/14/17 18:00 04/21/17 17:59 04/15/17 20:43 GOLDEN LIM Apr 16, 2017 09:17
[2017-04-16] MEDS: Dronabinol 2.5mg Cap ORAL SCH ×2 (09:51→18:17)
[2017-04-16] MEDS: Loperamide 2mg cap ORAL SCH ×3 (09:52→21:08)
[2017-04-16] MEDS: Vancomycin oral 125mg/2.5ml ORAL SCH ×4 (09:52→21:09)
[2017-04-16] MEDS: Allopurinol 100mg Tab ORAL SCH (09:52)
[2017-04-16] MEDS: Tamsulosin 0.4mg cap ORAL SCH ×2 (09:52→18:17)
[2017-04-16] MEDS: Metoprolol 25mg tab ORAL SCH ×2 (09:53→21:15)
--- NOTE | 2017-04-16 10:24 | General Progress Note ---
Assessment/Plan Problem List: (1) Multiple myeloma ICD Codes: C90.00 - Multiple myeloma not having achieved remission SNOMED: 966031209 (2) BPH (benign prostatic hyperplasia) ICD Codes: N40.0 - BPH (benign prostatic hyperplasia) SNOMED: 961607404 (3) HTN (hypertension) ICD Codes: I10 - Essential (primary) hypertension SNOMED: 12014516 (4) Amyloidosis ICD Codes: E85.9 - Amyloidosis, unspecified SNOMED: 69676020 Assessment/Plan s/p EGD/colonoscopy 2015 >> amyloidosis stool culture normal folate/B12 WNL Vit D deficiency abdominal U/S unremarkable PICC in place monitor H&H, prn transfusions low residual/fiber diet / lactose free diet IV hydration + electrolyte replacement lomotil prn H2B fu labs fu Vit D dc planning Subjective ROS Limited/Unobtainable: Yes Allergies: Coded Allergies: No Known Allergies (Unverified , 04/23/13) Subjective had BM Objective Last 24 Hour Vital Signs Date Time Temp Pulse Resp B/P (MAP) Pulse Ox O2 Delivery O2 Flow Rate FiO2 04/16/17 10:10 73 117/69 04/16/17 09:53 73 117/69 04/16/17 08:00 97.5 73 20 117/69 100 Room Air 04/16/17 00:00 97.7 65 20 127/81 100 Room Air 04/15/17 20:43 65 131/57 04/15/17 20:00 97.7 65 20 131/57 100 Room Air 04/15/17 16:59 98.0 64 103/47 100 Room Air 04/15/17 12:00 97.9 62 19 144/80 100 Room Air Height (Feet): 6 Height (Inches): 1.00 Weight (Pounds): 197 General Appearance: no apparent distress EENT: normal ENT inspection Neck: supple Cardiovascular: normal rate Respiratory/Chest: decreased breath sounds Abdomen: normal bowel sounds, non tender, soft Extremities: non-tender KATHY WATSON Apr 16, 2017 10:24
--- NOTE | 2017-04-16 10:28 | Infectious Diseases Prog Note ---
Assessment/Plan Assessment/Plan ASSESSMENT: The patient is a 76-year-old male with: Extended spectrum beta-lactamases E. coli urinary tractUTI Diarrhea due to recurrent C Diff History of recurrent Clostridium difficile.( recent +ve 03/29/17) Leukopenia. Afebrile. History of recurrent C. diff colitis History of multiple myeloma on chemo. History of GI trach amyloidosis. History of appendicitis. History of intraabdominal abscess in 2014. Hypertension. Prostate cancer. TURP. CAD. CABG PLAN: Cont pt on oral vancomycin and add Flagyl day # Invanz day # -consider Fidaxomicin if diarrhea not improving Monitor CBC Monitor BMP. Monitor blood culture Subjective Allergies: Coded Allergies: No Known Allergies (Unverified , 04/23/13) Subjective afebrile no leukocytosis Objective Vital Signs Last 24 Hour Vital Signs Date Time Temp Pulse Resp B/P (MAP) Pulse Ox O2 Delivery O2 Flow Rate FiO2 04/16/17 10:10 73 117/69 04/16/17 09:53 73 117/69 04/16/17 08:00 97.5 73 20 117/69 100 Room Air 04/16/17 00:00 97.7 65 20 127/81 100 Room Air 04/15/17 20:43 65 131/57 04/15/17 20:00 97.7 65 20 131/57 100 Room Air 04/15/17 16:59 98.0 64 103/47 100 Room Air 04/15/17 12:00 97.9 62 19 144/80 100 Room Air Height (Feet): 6 Height (Inches): 1.00 Weight (Pounds): 197 Objective General Appearance: WD/WN, no apparent distress Lines, tubes and drains: peripheral, HEENT: normocephalic, anicteric Neck: non-tender, normal alignment Respiratory/Chest: chest wall non-tender, lungs clear Cardiovascular/Chest: normal rate, regular rhythm Abdomen: non tender, soft Genitourinary/Rectal: normal genital exam, normal rectal exam Extremities: normal range of motion, non-pitting reviewed reviewed Current Medications Medications (Trade) Dose Ordered Sig/Antionette Route PRN Reason Start Time Stop Time Status Last Admin Dose Admin Acetaminophen (Tylenol) 650 mg Q4H PRN ORAL fever 04/12/17 15:45 05/12/17 15:44 Al Hydroxide/Mg Hydroxide (Mylanta II) 30 ml Q6H PRN ORAL dyspepsia 04/12/17 15:45 05/12/17 15:44 Allopurinol (Zyloprim) 300 mg DAILY ORAL 04/13/17 09:00 05/13/17 08:59 04/16/17 09:52 Amlodipine Besylate (Norvasc) 5 mg DAILY ORAL 04/13/17 09:00 05/13/17 08:59 04/16/17 10:10 Atorvastatin Calcium (Lipitor) 80 mg QHS ORAL 04/12/17 21:00 05/12/17 20:59 04/15/17 20:42 Chlorhexidine Gluconate (Lisette-Hex 2%) 1 applic DAILY@2000 TOPIC 04/15/17 20:00 05/15/17 19:59 04/15/17 20:42 Dextrose (Dextrose 50%) STAT PRN IV Hypoglycemia 04/12/17 15:45 05/12/17 15:44 Dextrose/Sodium Chloride 1,000 ml @ 75 mls/hr [id number] IV 04/12/17 17:45 05/12/17 17:44 04/16/17 01:27 Diphenhydramine HCl (Benadryl) 25 mg Q6H PRN ORAL Itching/Pruritis 04/12/17 15:45 05/12/17 15:44 Diphenoxylate HCl/ Atropine (Lomotil) 2.5 mg Q4H PRN ORAL Diarrhea 04/12/17 16:15 05/12/17 16:14 04/14/17 14:52 Dronabinol (Marinol) 5 mg BID ORAL 04/12/17 18:00 05/12/17 17:59 04/16/17 09:51 Ertapenem 1 gm/ Sodium Chloride 55 ml @ 110 mls/hr Q24H IVPB 04/14/17 18:00 04/19/17 17:59 04/15/17 16:59 Finasteride (Proscar) 5 mg DAILY ORAL 04/13/17 09:00 05/13/17 08:59 04/16/17 09:51 Heparin Sodium (Porcine) (Heparin 5000 units/ml) 5,000 units EVERY 12 HOURS SUBQ 04/12/17 21:00 05/12/17 20:59 Loperamide HCl (Imodium) 2 mg Q8HR ORAL 04/16/17 09:00 05/16/17 08:59 04/16/17 09:52 Lorazepam (Ativan 2mg/ml 1ml) 1 mg Q4H PRN IV agitation 04/12/17 15:45 04/19/17 15:44 Metoclopramide HCl (Reglan) 10 mg Q6H PRN IVP SEVERE NAUSEA 04/12/17 15:45 05/12/17 15:44 Metoprolol Tartrate (Lopressor) 25 mg Q12HR ORAL 04/12/17 21:00 05/12/17 20:59 04/16/17 09:53 Metronidazole (Flagyl) 500 mg Q8H ORAL 04/14/17 20:00 04/21/17 19:59 04/16/17 04:00 Nitroglycerin (Ntg) 0.4 mg Q5M X 3 DOSES PRN SL Prn Chest Pain 04/12/17 15:45 05/12/17 15:44 Nortriptyline HCl (Pamelor) 25 mg QHS ORAL 04/12/17 21:00 05/12/17 20:59 04/15/17 20:42 Ondansetron HCl (Zofran) 4 mg Q6H PRN IVP Nausea & Vomiting 04/12/17 15:45 05/12/17 15:44 Polyethylene Glycol (Miralax) 17 gm HSPRN PRN ORAL Constipation 04/12/17 15:45 05/12/17 15:44 Pregabalin (Lyrica) 75 mg BIDPRN PRN ORAL NEUROPATHY 04/12/17 15:45 05/12/17 15:44 Promethazine HCl (Phenergan) 25 mg Q8H PRN IV refractory nausea 04/12/17 15:45 05/12/17 15:44 Ranitidine HCl (Zantac) 150 mg BEDTIME ORAL 04/13/17 21:00 05/13/17 20:59 04/15/17 20:42 Tamsulosin HCl (Flomax) 0.4 mg BID ORAL 04/12/17 18:00 05/12/17 17:59 04/16/17 09:52 Temazepam (Restoril) 15 mg HSPRN PRN ORAL Insomnia 04/12/17 15:45 04/19/17 15:44 Vancomycin HCl (Vancomycin) 250 mg FOUR TIMES A DAY ORAL 04/14/17 18:00 04/21/17 17:59 04/16/17 09:52 Yaima Nguyễn M.D. Apr 16, 2017 10:28
--- NOTE | 2017-04-16 14:31 | Internal Med Progress Note ---
Subjective Date of Service: Apr 16, 2017 Physician Name EliasElly Attending Physician Jovani Villagomez MD Current Medications Medications (Trade) Dose Ordered Sig/Antionette Route PRN Reason Start Time Stop Time Status Last Admin Dose Admin Acetaminophen (Tylenol) 650 mg Q4H PRN ORAL fever 04/12/17 15:45 05/12/17 15:44 Al Hydroxide/Mg Hydroxide (Mylanta II) 30 ml Q6H PRN ORAL dyspepsia 04/12/17 15:45 05/12/17 15:44 Allopurinol (Zyloprim) 300 mg DAILY ORAL 04/13/17 09:00 05/13/17 08:59 04/16/17 09:52 Amlodipine Besylate (Norvasc) 5 mg DAILY ORAL 04/13/17 09:00 05/13/17 08:59 04/16/17 10:10 Atorvastatin Calcium (Lipitor) 80 mg QHS ORAL 04/12/17 21:00 05/12/17 20:59 04/15/17 20:42 Chlorhexidine Gluconate (Lisette-Hex 2%) 1 applic DAILY@2000 TOPIC 04/15/17 20:00 05/15/17 19:59 04/15/17 20:42 Dextrose (Dextrose 50%) STAT PRN IV Hypoglycemia 04/12/17 15:45 05/12/17 15:44 Dextrose/Sodium Chloride 1,000 ml @ 75 mls/hr [id number] IV 04/12/17 17:45 05/12/17 17:44 04/16/17 13:23 Diphenhydramine HCl (Benadryl) 25 mg Q6H PRN ORAL Itching/Pruritis 04/12/17 15:45 05/12/17 15:44 Diphenoxylate HCl/ Atropine (Lomotil) 2.5 mg Q4H PRN ORAL Diarrhea 04/12/17 16:15 05/12/17 16:14 04/14/17 14:52 Dronabinol (Marinol) 5 mg BID ORAL 04/12/17 18:00 05/12/17 17:59 04/16/17 09:51 Ertapenem 1 gm/ Sodium Chloride 55 ml @ 110 mls/hr Q24H IVPB 04/14/17 18:00 04/19/17 17:59 04/15/17 16:59 Finasteride (Proscar) 5 mg DAILY ORAL 04/13/17 09:00 05/13/17 08:59 04/16/17 09:51 Heparin Sodium (Porcine) (Heparin 5000 units/ml) 5,000 units EVERY 12 HOURS SUBQ 04/12/17 21:00 05/12/17 20:59 Loperamide HCl (Imodium) 2 mg Q8HR ORAL 04/16/17 09:00 05/16/17 08:59 04/16/17 13:22 Lorazepam (Ativan 2mg/ml 1ml) 1 mg Q4H PRN IV agitation 04/12/17 15:45 04/19/17 15:44 Metoclopramide HCl (Reglan) 10 mg Q6H PRN IVP SEVERE NAUSEA 04/12/17 15:45 05/12/17 15:44 Metoprolol Tartrate (Lopressor) 25 mg Q12HR ORAL 04/12/17 21:00 05/12/17 20:59 04/16/17 09:53 Metronidazole (Flagyl) 500 mg Q8H ORAL 04/14/17 20:00 04/21/17 19:59 04/16/17 13:22 Nitroglycerin (Ntg) 0.4 mg Q5M X 3 DOSES PRN SL Prn Chest Pain 04/12/17 15:45 05/12/17 15:44 Nortriptyline HCl (Pamelor) 25 mg QHS ORAL 04/12/17 21:00 05/12/17 20:59 04/15/17 20:42 Ondansetron HCl (Zofran) 4 mg Q6H PRN IVP Nausea & Vomiting 04/12/17 15:45 05/12/17 15:44 Polyethylene Glycol (Miralax) 17 gm HSPRN PRN ORAL Constipation 04/12/17 15:45 05/12/17 15:44 Pregabalin (Lyrica) 75 mg BIDPRN PRN ORAL NEUROPATHY 04/12/17 15:45 05/12/17 15:44 Promethazine HCl (Phenergan) 25 mg Q8H PRN IV refractory nausea 04/12/17 15:45 05/12/17 15:44 Ranitidine HCl (Zantac) 150 mg BEDTIME ORAL 04/13/17 21:00 05/13/17 20:59 04/15/17 20:42 Tamsulosin HCl (Flomax) 0.4 mg BID ORAL 04/12/17 18:00 05/12/17 17:59 04/16/17 09:52 Temazepam (Restoril) 15 mg HSPRN PRN ORAL Insomnia 04/12/17 15:45 04/19/17 15:44 Vancomycin HCl (Vancomycin) 250 mg FOUR TIMES A DAY ORAL 04/14/17 18:00 04/21/17 17:59 04/16/17 13:23 Allergies: Coded Allergies: No Known Allergies (Unverified , 04/23/13) ROS Limited/Unobtainable: No Constitutional: Reports: no symptoms HEENT: Reports: no symptoms Cardiovascular: Reports: no symptoms Respiratory: Reports: no symptoms Gastrointestinal/Abdominal: Reports: abdominal pain Genitourinary: Reports: no symptoms Neurologic/Psychiatric: Reports: no symptoms Subjective 76 YO M admitted with left lower quadrant pain. Now UTI. Cover for Int Med-Dr Villagomez. Objective Last Vital Signs Date Time Temp Pulse Resp B/P (MAP) Pulse Ox O2 Delivery O2 Flow Rate FiO2 04/16/17 10:10 73 117/69 04/16/17 09:00 97.5 20 100 Room Air Intake and Output 04/16/17 04/17/17 19:00 07:00 Intake Total 225 ml Balance 225 ml IV Total 225 ml Objective General Appearance: WD/WN, no apparent distress, alert EENT: PERRL/EOMI, normal ENT inspection, TMs normal Neck: non-tender, normal alignment, supple, normal inspection Cardiovascular: normal peripheral pulses, normal rate, regular rhythm, no gallop/murmur, no JVD Respiratory/Chest: chest wall non-tender, lungs clear, normal breath sounds, no respiratory distress, no accessory muscle use Abdomen: normal bowel sounds, soft, no organomegaly, guarding, rebound, tender Extremities: normal range of motion, non-tender Neurologic: cellophane tester II-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 Coli-Multi drug resistant. See ID note. Continue ertapenem (3) Clostridium difficile colitis Assessment & Plan: Continue vanco and flagyl. See GI note (4) Amyloidosis Assessment & Plan: GI-see gastroenterology note (5) Multiple myeloma (6) HTN (hypertension) Assessment & Plan: Cont norvasc and lopressor (7) Anemia (8) CAD (coronary artery disease) (9) BPH (benign prostatic hyperplasia) Status: not improved ELLY ELIAS Apr 16, 2017 14:31
[2017-04-16 16:00] VITALS: BP 115/59
[2017-04-16] MEDS: Ertapenem 1 GM in NS 55 ML IVPB SCH (18:18)
[2017-04-16 20:00] VITALS: BP 113/64
[2017-04-16] MEDS: Dyna-Hex 2% Top Sol 2oz TOPIC SCH (21:08)
[2017-04-16] MEDS: Nortriptyline 25mg cap ORAL SCH (21:09)
[2017-04-16] MEDS: Atorvastatin 80mg tab ORAL SCH (21:09)
[2017-04-17] MEDS: D5 1/2NS 1,000 ML IV SCH ×2 (04:08→17:45)
[2017-04-17] MEDS: metroNIDAZOLE 500mg tab ORAL SCH ×3 (04:08→21:06)
[2017-04-17] MEDS: Loperamide 2mg cap ORAL SCH ×3 (06:03→21:06)
--- NOTE | 2017-04-17 06:42 | General Progress Note ---
Assessment/Plan Problem List: (1) Multiple myeloma ICD Codes: C90.00 - Multiple myeloma not having achieved remission SNOMED: 480118376 (2) BPH (benign prostatic hyperplasia) ICD Codes: N40.0 - BPH (benign prostatic hyperplasia) SNOMED: 473405353 (3) HTN (hypertension) ICD Codes: I10 - Essential (primary) hypertension SNOMED: 33149653 (4) Amyloidosis ICD Codes: E85.9 - Amyloidosis, unspecified SNOMED: 40070596 Assessment/Plan s/p EGD/colonoscopy 2015 >> amyloidosis stool culture normal folate/B12 WNL Vit D deficiency abdominal U/S unremarkable PICC in place on abx dc reglan dc miralax monitor H&H, prn transfusions low residual/fiber diet / lactose free diet IV hydration + electrolyte replacement lomotil prn H2B fu labs fu Vit D dc planning Subjective ROS Limited/Unobtainable: Yes Allergies: Coded Allergies: No Known Allergies (Unverified , 04/23/13) Subjective no abd pain loose stools not feeling well poor appetite Objective Last 24 Hour Vital Signs Date Time Temp Pulse Resp B/P (MAP) Pulse Ox O2 Delivery O2 Flow Rate FiO2 04/16/17 21:15 70 113/64 04/16/17 20:00 98.2 70 19 113/64 100 Room Air 04/16/17 16:00 97.7 66 20 115/59 100 Room Air 04/16/17 10:10 73 117/69 04/16/17 09:53 73 117/69 04/16/17 09:00 97.5 73 20 117/69 100 Room Air Height (Feet): 6 Height (Inches): 1.00 Weight (Pounds): 197 General Appearance: alert EENT: normal ENT inspection Neck: supple Cardiovascular: normal rate Respiratory/Chest: lungs clear Abdomen: normal bowel sounds, non tender, soft Extremities: non-tender KATHY WATSON Apr 17, 2017 06:42
[2017-04-17 07:19] LABS: BASOPHILS % (AUTO) 0.9 % (0.0-2.0); EOSINOPHILS % (AUTO) 3.7 % (0.0-3.0); LYMPHOCYTES % (AUTO) 24.4 % (20.0-45.0); MEAN CORPUSCULAR HEMOGLOBIN 32.9 PG (27.0-31.0); MEAN CORPUSCULAR HGB CONC 32.8 G/DL (32.0-36.0); MEAN CORPUSCULAR VOLUME 100 FL (80-99); NEUTROPHILS % (AUTO) 58.1 % (45.0-75.0); PLATELET COUNT 109 K/UL (150-450); RED BLOOD COUNT 3.02 M/UL (4.70-6.10)
[2017-04-17 08:01] LABS: ALANINE AMINOTRANSFERASE 20 U/L (12-78); ALBUMIN/GLOBULIN RATIO 1.3 (1.0-2.7); ANION GAP 9 mmol/L (5-15); ASPARTATE AMINO TRANSFERASE 24 U/L (15-37); CALCIUM 8.5 MG/DL (8.5-10.1); CARBON DIOXIDE 24 MMOL/L (21-32); CHLORIDE 109 MMOL/L (98-107); CREATININE 1.3 MG/DL (0.55-1.30); MAGNESIUM 1.4 MG/DL (1.8-2.4); PHOSPHORUS 3.1 MG/DL (2.5-4.9); POTASSIUM 3.2 MMOL/L (3.5-5.1); SODIUM 142 MMOL/L (136-145); TOTAL PROTEIN 5.5 G/DL (6.4-8.2)
[2017-04-17] MEDS: Heparin 5000 units/ml inj SUBQ SCH ×2 (09:00→21:00)
[2017-04-17] MEDS: Metoprolol 25mg tab ORAL SCH ×2 (09:00→21:07)
[2017-04-17] MEDS: Tamsulosin 0.4mg cap ORAL SCH ×2 (09:23→17:52)
[2017-04-17] MEDS: Vancomycin oral 125mg/2.5ml ORAL SCH ×4 (09:23→21:06)
[2017-04-17] MEDS: Allopurinol 100mg Tab ORAL SCH (09:23)
[2017-04-17] MEDS: Dronabinol 2.5mg Cap ORAL SCH ×2 (09:24→17:52)
[2017-04-17 12:00] VITALS: BP 139/68
--- NOTE | 2017-04-17 14:03 | Internal Med Progress Note ---
Subjective Date of Service: Apr 17, 2017 Physician Name Elly Elias Attending Physician Jovani Villagomez MD Current Medications Medications (Trade) Dose Ordered Sig/Antionette Route PRN Reason Start Time Stop Time Status Last Admin Dose Admin Acetaminophen (Tylenol) 650 mg Q4H PRN ORAL fever 04/12/17 15:45 05/12/17 15:44 Al Hydroxide/Mg Hydroxide (Mylanta II) 30 ml Q6H PRN ORAL dyspepsia 04/12/17 15:45 05/12/17 15:44 Allopurinol (Zyloprim) 300 mg DAILY ORAL 04/13/17 09:00 05/13/17 08:59 04/17/17 09:23 Amlodipine Besylate (Norvasc) 5 mg DAILY ORAL 04/13/17 09:00 05/13/17 08:59 04/16/17 10:10 Atorvastatin Calcium (Lipitor) 80 mg QHS ORAL 04/12/17 21:00 05/12/17 20:59 04/16/17 21:09 Chlorhexidine Gluconate (Lisette-Hex 2%) 1 applic DAILY@2000 TOPIC 04/15/17 20:00 05/15/17 19:59 04/16/17 21:08 Dextrose (Dextrose 50%) STAT PRN IV Hypoglycemia 04/12/17 15:45 05/12/17 15:44 Dextrose/Sodium Chloride 1,000 ml @ 75 mls/hr [id number] IV 04/12/17 17:45 05/12/17 17:44 04/17/17 04:08 Diphenhydramine HCl (Benadryl) 25 mg Q6H PRN ORAL Itching/Pruritis 04/12/17 15:45 05/12/17 15:44 Diphenoxylate HCl/ Atropine (Lomotil) 2.5 mg Q4H PRN ORAL Diarrhea 04/12/17 16:15 05/12/17 16:14 04/14/17 14:52 Dronabinol (Marinol) 5 mg BID ORAL 04/12/17 18:00 05/12/17 17:59 04/17/17 09:24 Ertapenem 1 gm/ Sodium Chloride 55 ml @ 110 mls/hr Q24H IVPB 04/14/17 18:00 04/19/17 17:59 04/16/17 18:18 Finasteride (Proscar) 5 mg DAILY ORAL 04/13/17 09:00 05/13/17 08:59 04/17/17 09:23 Heparin Sodium (Porcine) (Heparin 5000 units/ml) 5,000 units EVERY 12 HOURS SUBQ 04/12/17 21:00 05/12/17 20:59 Loperamide HCl (Imodium) 2 mg Q8HR ORAL 04/16/17 09:00 05/16/17 08:59 04/17/17 06:03 Lorazepam (Ativan 2mg/ml 1ml) 1 mg Q4H PRN IV agitation 04/12/17 15:45 04/19/17 15:44 Metoprolol Tartrate (Lopressor) 25 mg Q12HR ORAL 04/12/17 21:00 05/12/17 20:59 04/16/17 21:15 Metronidazole (Flagyl) 500 mg Q8H ORAL 04/14/17 20:00 04/21/17 19:59 04/17/17 12:27 Nitroglycerin (Ntg) 0.4 mg Q5M X 3 DOSES PRN SL Prn Chest Pain 04/12/17 15:45 05/12/17 15:44 Nortriptyline HCl (Pamelor) 25 mg QHS ORAL 04/12/17 21:00 05/12/17 20:59 04/16/17 21:09 Ondansetron HCl (Zofran) 4 mg Q6H PRN IVP Nausea & Vomiting 04/12/17 15:45 05/12/17 15:44 Pregabalin (Lyrica) 75 mg BIDPRN PRN ORAL NEUROPATHY 04/12/17 15:45 05/12/17 15:44 Promethazine HCl (Phenergan) 25 mg Q8H PRN IV refractory nausea 04/12/17 15:45 05/12/17 15:44 Ranitidine HCl (Zantac) 150 mg BEDTIME ORAL 04/13/17 21:00 05/13/17 20:59 04/16/17 21:09 Tamsulosin HCl (Flomax) 0.4 mg BID ORAL 04/12/17 18:00 05/12/17 17:59 04/17/17 09:23 Temazepam (Restoril) 15 mg HSPRN PRN ORAL Insomnia 04/12/17 15:45 04/19/17 15:44 Vancomycin HCl (Vancomycin) 250 mg FOUR TIMES A DAY ORAL 04/14/17 18:00 04/21/17 17:59 04/17/17 09:23 Allergies: Coded Allergies: No Known Allergies (Unverified , 04/23/13) ROS Limited/Unobtainable: No Constitutional: Reports: no symptoms HEENT: Reports: no symptoms Cardiovascular: Reports: no symptoms Respiratory: Reports: no symptoms Gastrointestinal/Abdominal: Reports: abdominal pain Genitourinary: Reports: no symptoms Neurologic/Psychiatric: Reports: no symptoms Subjective 76 YO M admitted with left lower quadrant pain. Now UTI. Cover for Int Antonio-Dr Villagomez. Objective Last Vital Signs Date Time Temp Pulse Resp B/P (MAP) Pulse Ox O2 Delivery O2 Flow Rate FiO2 04/16/17 21:15 70 113/64 04/16/17 20:00 98.2 19 100 Room Air Laboratory Tests Test 04/17/17 05:15 White Blood Count 4.0 K/UL (4.8-10.8) L Red Blood Count 3.02 M/UL (4.70-6.10) L Hemoglobin 10.0 G/DL (14.2-18.0) L Hematocrit 30.3 % (42.0-52.0) L Mean Corpuscular Volume 100 FL (80-99) H Mean Corpuscular Hemoglobin 32.9 PG (27.0-31.0) H Mean Corpuscular Hemoglobin Concent 32.8 G/DL (32.0-36.0) Red Cell Distribution Width 14.0 % (11.6-14.8) Platelet Count 109 K/UL (150-450) L Mean Platelet Volume 7.0 FL (6.5-10.1) Neutrophils (%) (Auto) 58.1 % (45.0-75.0) Lymphocytes (%) (Auto) 24.4 % (20.0-45.0) Monocytes (%) (Auto) 13.0 % (1.0-10.0) H Eosinophils (%) (Auto) 3.7 % (0.0-3.0) H Basophils (%) (Auto) 0.9 % (0.0-2.0) Sodium Level 142 MMOL/L (136-145) Potassium Level 3.2 MMOL/L (3.5-5.1) L Chloride Level 109 MMOL/L (98-107) H Carbon Dioxide Level 24 MMOL/L (21-32) Anion Gap 9 mmol/L (5-15) Blood Urea Nitrogen 3 mg/dL (7-18) L Creatinine 1.3 MG/DL (0.55-1.30) Estimat Glomerular Filtration Rate mL/min (>60) Glucose Level 105 MG/DL (74-106) Calcium Level 8.5 MG/DL (8.5-10.1) Phosphorus Level 3.1 MG/DL (2.5-4.9) Magnesium Level 1.4 MG/DL (1.8-2.4) L Total Bilirubin 0.8 MG/DL (0.2-1.0) Aspartate Amino Transf (AST/SGOT) 24 U/L (15-37) Alanine Aminotransferase (ALT/SGPT) 20 U/L (12-78) Alkaline Phosphatase 82 U/L (46-116) Total Protein 5.5 G/DL (6.4-8.2) L Albumin 3.1 G/DL (3.4-5.0) L Globulin 2.4 g/dL Albumin/Globulin Ratio 1.3 (1.0-2.7) Intake and Output 04/17/17 04/18/17 18:59 06:59 Intake Total 375 ml Balance 375 ml IV Total 375 ml Objective General Appearance: WD/WN, no apparent distress, alert EENT: PERRL/EOMI, normal ENT inspection, TMs normal Neck: non-tender, normal alignment, supple, normal inspection Cardiovascular: normal peripheral pulses, normal rate, regular rhythm, no gallop/murmur, no JVD Respiratory/Chest: chest wall non-tender, lungs clear, normal breath sounds, no respiratory distress, no accessory muscle use Abdomen: normal bowel sounds, soft, no organomegaly, guarding, rebound, tender Extremities: normal range of motion, non-tender 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 Coli-Multi drug resistant. See ID note. Continue ertapenem (3) Clostridium difficile colitis Assessment & Plan: Continue vanco and flagyl. See GI note (4) Amyloidosis Assessment & Plan: GI-see gastroenterology note (5) Multiple myeloma (6) HTN (hypertension) Assessment & Plan: Cont norvasc and lopressor (7) Anemia (8) CAD (coronary artery disease) (9) BPH (benign prostatic hyperplasia) Status: progressing ELLY ELIAS Apr 17, 2017 14:03
--- NOTE | 2017-04-17 15:17 | Infectious Diseases Prog Note ---
Assessment/Plan Assessment/Plan A; UTI C. difficile Multiple myeloma Amyloidosis Anemia P; Cont pt on oral vancomycin and Flagyl day # Invanz day #09/17 Subjective ROS Limited/Unobtainable: No Constitutional: Reports: no symptoms Respiratory: Reports: no symptoms Cardiovascular: Reports: no symptoms Gastrointestinal/Abdominal: Reports: diarrhea, other - improved Genitourinary: Reports: no symptoms Neurologic: Reports: no symptoms Allergies: Coded Allergies: No Known Allergies (Unverified , 04/23/13) Objective Vital Signs Last 24 Hour Vital Signs Date Time Temp Pulse Resp B/P (MAP) Pulse Ox O2 Delivery O2 Flow Rate FiO2 04/17/17 12:00 97.0 66 20 139/68 99 Room Air 04/16/17 21:15 70 113/64 04/16/17 20:00 98.2 70 19 113/64 100 Room Air 04/16/17 16:00 97.7 66 20 115/59 100 Room Air Height (Feet): 6 Height (Inches): 1.00 Weight (Pounds): 197 General Appearance: no acute distress HEENT: mucous membranes moist Respiratory/Chest: lungs clear Cardiovascular: normal rate Abdomen: soft, non tender Extremities: no edema Neurologic/Psychiatric: alert, oriented x 3, responsive Laboratory Tests Test 04/17/17 05:15 White Blood Count 4.0 K/UL (4.8-10.8) L Red Blood Count 3.02 M/UL (4.70-6.10) L Hemoglobin 10.0 G/DL (14.2-18.0) L Hematocrit 30.3 % (42.0-52.0) L Mean Corpuscular Volume 100 FL (80-99) H Mean Corpuscular Hemoglobin 32.9 PG (27.0-31.0) H Mean Corpuscular Hemoglobin Concent 32.8 G/DL (32.0-36.0) Red Cell Distribution Width 14.0 % (11.6-14.8) Platelet Count 109 K/UL (150-450) L Mean Platelet Volume 7.0 FL (6.5-10.1) Neutrophils (%) (Auto) 58.1 % (45.0-75.0) Lymphocytes (%) (Auto) 24.4 % (20.0-45.0) Monocytes (%) (Auto) 13.0 % (1.0-10.0) H Eosinophils (%) (Auto) 3.7 % (0.0-3.0) H Basophils (%) (Auto) 0.9 % (0.0-2.0) Sodium Level 142 MMOL/L (136-145) Potassium Level 3.2 MMOL/L (3.5-5.1) L Chloride Level 109 MMOL/L (98-107) H Carbon Dioxide Level 24 MMOL/L (21-32) Anion Gap 9 mmol/L (5-15) Blood Urea Nitrogen 3 mg/dL (7-18) L Creatinine 1.3 MG/DL (0.55-1.30) Estimat Glomerular Filtration Rate mL/min (>60) Glucose Level 105 MG/DL (74-106) Calcium Level 8.5 MG/DL (8.5-10.1) Phosphorus Level 3.1 MG/DL (2.5-4.9) Magnesium Level 1.4 MG/DL (1.8-2.4) L Total Bilirubin 0.8 MG/DL (0.2-1.0) Aspartate Amino Transf (AST/SGOT) 24 U/L (15-37) Alanine Aminotransferase (ALT/SGPT) 20 U/L (12-78) Alkaline Phosphatase 82 U/L (46-116) Total Protein 5.5 G/DL (6.4-8.2) L Albumin 3.1 G/DL (3.4-5.0) L Globulin 2.4 g/dL Albumin/Globulin Ratio 1.3 (1.0-2.7) Current Medications Medications (Trade) Dose Ordered Sig/Antionette Route PRN Reason Start Time Stop Time Status Last Admin Dose Admin Acetaminophen (Tylenol) 650 mg Q4H PRN ORAL fever 04/12/17 15:45 05/12/17 15:44 Al Hydroxide/Mg Hydroxide (Mylanta II) 30 ml Q6H PRN ORAL dyspepsia 04/12/17 15:45 05/12/17 15:44 Allopurinol (Zyloprim) 300 mg DAILY ORAL 04/13/17 09:00 05/13/17 08:59 04/17/17 09:23 Amlodipine Besylate (Norvasc) 5 mg DAILY ORAL 04/13/17 09:00 05/13/17 08:59 04/16/17 10:10 Atorvastatin Calcium (Lipitor) 80 mg QHS ORAL 04/12/17 21:00 05/12/17 20:59 04/16/17 21:09 Chlorhexidine Gluconate (Lisette-Hex 2%) 1 applic DAILY@2000 TOPIC 04/15/17 20:00 05/15/17 19:59 04/16/17 21:08 Dextrose (Dextrose 50%) STAT PRN IV Hypoglycemia 04/12/17 15:45 05/12/17 15:44 Dextrose/Sodium Chloride 1,000 ml @ 75 mls/hr [id number] IV 04/12/17 17:45 05/12/17 17:44 04/17/17 04:08 Diphenhydramine HCl (Benadryl) 25 mg Q6H PRN ORAL Itching/Pruritis 04/12/17 15:45 05/12/17 15:44 Diphenoxylate HCl/ Atropine (Lomotil) 2.5 mg Q4H PRN ORAL Diarrhea 04/12/17 16:15 05/12/17 16:14 04/14/17 14:52 Dronabinol (Marinol) 5 mg BID ORAL 04/12/17 18:00 05/12/17 17:59 04/17/17 09:24 Ertapenem 1 gm/ Sodium Chloride 55 ml @ 110 mls/hr Q24H IVPB 04/14/17 18:00 04/19/17 17:59 04/16/17 18:18 Finasteride (Proscar) 5 mg DAILY ORAL 04/13/17 09:00 05/13/17 08:59 04/17/17 09:23 Heparin Sodium (Porcine) (Heparin 5000 units/ml) 5,000 units EVERY 12 HOURS SUBQ 04/12/17 21:00 05/12/17 20:59 Loperamide HCl (Imodium) 2 mg Q8HR ORAL 04/16/17 09:00 05/16/17 08:59 04/17/17 14:10 Lorazepam (Ativan 2mg/ml 1ml) 1 mg Q4H PRN IV agitation 04/12/17 15:45 04/19/17 15:44 Metoprolol Tartrate (Lopressor) 25 mg Q12HR ORAL 04/12/17 21:00 05/12/17 20:59 04/16/17 21:15 Metronidazole (Flagyl) 500 mg Q8H ORAL 04/14/17 20:00 04/21/17 19:59 04/17/17 12:27 Nitroglycerin (Ntg) 0.4 mg Q5M X 3 DOSES PRN SL Prn Chest Pain 04/12/17 15:45 05/12/17 15:44 Nortriptyline HCl (Pamelor) 25 mg QHS ORAL 04/12/17 21:00 05/12/17 20:59 04/16/17 21:09 Ondansetron HCl (Zofran) 4 mg Q6H PRN IVP Nausea & Vomiting 04/12/17 15:45 05/12/17 15:44 Pregabalin (Lyrica) 75 mg BIDPRN PRN ORAL NEUROPATHY 04/12/17 15:45 05/12/17 15:44 Promethazine HCl (Phenergan) 25 mg Q8H PRN IV refractory nausea 04/12/17 15:45 05/12/17 15:44 Ranitidine HCl (Zantac) 150 mg BEDTIME ORAL 04/13/17 21:00 05/13/17 20:59 04/16/17 21:09 Tamsulosin HCl (Flomax) 0.4 mg BID ORAL 04/12/17 18:00 05/12/17 17:59 04/17/17 09:23 Temazepam (Restoril) 15 mg HSPRN PRN ORAL Insomnia 04/12/17 15:45 04/19/17 15:44 Vancomycin HCl (Vancomycin) 250 mg FOUR TIMES A DAY ORAL 04/14/17 18:00 04/21/17 17:59 04/17/17 14:10 JENNIFER LUA Apr 17, 2017 15:17
[2017-04-17] MEDS ORDERED: D5 1/2NS 1000ml IV ONE (15:44)
[2017-04-17 16:00] VITALS: BP 130/62
[2017-04-17] MEDS: Ertapenem 1 GM in NS 55 ML IVPB SCH (17:51)
[2017-04-17 20:00] VITALS: BP 138/76
[2017-04-17] MEDS: Dyna-Hex 2% Top Sol 2oz TOPIC SCH (21:05)
[2017-04-17] MEDS: Nortriptyline 25mg cap ORAL SCH (21:06)
[2017-04-17] MEDS: Atorvastatin 80mg tab ORAL SCH (21:06)
--- NOTE | 2017-04-17 21:21 | Pulmonology Progress Note ---
Assessment/Plan Problems: (1) Sepsis (2) Multiple myeloma (3) UTI (urinary tract infection) (4) C. difficile colitis (5) Hypertension Assessment/Plan still diarrhea 6 times ESBL in urine continue abx check cultures iv fluids check electrolytes all notes and meds reviewed Subjective ROS Limited/Unobtainable: No Constitutional: Reports: no symptoms Respiratory: Reports: no symptoms Allergies: Coded Allergies: No Known Allergies (Unverified , 04/23/13) Objective Last 24 Hour Vital Signs Date Time Temp Pulse Resp B/P (MAP) Pulse Ox O2 Delivery O2 Flow Rate FiO2 04/17/17 21:07 68 138/76 04/17/17 20:00 97.3 68 21 138/76 100 Room Air 04/17/17 16:00 98.1 77 18 130/62 100 Room Air 04/17/17 12:00 97.0 66 20 139/68 99 Room Air Intake and Output 04/17/17 04/18/17 19:00 07:00 Intake Total 1285 ml Balance 1285 ml Intake Oral 480 ml IV Total 805 ml # Voids 5 Objective General Appearance: WD/WN, no apparent distress Lines, tubes and drains: peripheral, HEENT: normocephalic, anicteric Neck: non-tender, normal alignment Respiratory/Chest: chest wall non-tender, lungs clear Cardiovascular/Chest: normal rate, regular rhythm Abdomen: non tender, soft Genitourinary/Rectal: normal genital exam, normal rectal exam Extremities: normal range of motion, non-pitting Laboratory Tests 04/17/17 05:15: White Blood Count 4.0L, Red Blood Count 3.02L, Hemoglobin 10.0L, Hematocrit 30.3L, Mean Corpuscular Volume 100H, Mean Corpuscular Hemoglobin 32.9H, Mean Corpuscular Hemoglobin Concent 32.8, Red Cell Distribution Width 14.0, Platelet Count 109L, Mean Platelet Volume 7.0, Neutrophils (%) (Auto) 58.1, Lymphocytes ( %) (Auto) 24.4, Monocytes (%) (Auto) 13.0H, Eosinophils (%) (Auto) 3.7H, Basophils (%) (Auto) 0.9, Sodium Level 142, Potassium Level 3.2L, Chloride Level 109H, Carbon Dioxide Level 24, Anion Gap 9, Blood Urea Nitrogen 3L, Creatinine 1.3, Estimat Glomerular Filtration Rate , Glucose Level 105, Calcium Level 8.5, Phosphorus Level 3.1, Magnesium Level 1.4L, Total Bilirubin 0.8, Aspartate Amino Transf (AST/SGOT) 24, Alanine Aminotransferase (ALT/SGPT) 20, Alkaline Phosphatase 82, Total Protein 5.5L, Albumin 3.1L, Globulin 2.4, Albumin /Globulin Ratio 1.3 Current Medications Medications (Trade) Dose Ordered Sig/Antionette Route PRN Reason Start Time Stop Time Status Last Admin Dose Admin Acetaminophen (Tylenol) 650 mg Q4H PRN ORAL fever 04/12/17 15:45 05/12/17 15:44 Al Hydroxide/Mg Hydroxide (Mylanta II) 30 ml Q6H PRN ORAL dyspepsia 04/12/17 15:45 05/12/17 15:44 Allopurinol (Zyloprim) 300 mg DAILY ORAL 04/13/17 09:00 05/13/17 08:59 04/17/17 09:23 Amlodipine Besylate (Norvasc) 5 mg DAILY ORAL 04/13/17 09:00 05/13/17 08:59 04/16/17 10:10 Atorvastatin Calcium (Lipitor) 80 mg QHS ORAL 04/12/17 21:00 05/12/17 20:59 04/17/17 21:06 Chlorhexidine Gluconate (Lisette-Hex 2%) 1 applic DAILY@2000 TOPIC 04/15/17 20:00 05/15/17 19:59 04/17/17 21:05 Dextrose (Dextrose 50%) STAT PRN IV Hypoglycemia 04/12/17 15:45 05/12/17 15:44 Dextrose/Sodium Chloride 1,000 ml @ 75 mls/hr [id number] IV 04/12/17 17:45 05/12/17 17:44 04/17/17 04:08 Diphenhydramine HCl (Benadryl) 25 mg Q6H PRN ORAL Itching/Pruritis 04/12/17 15:45 05/12/17 15:44 Diphenoxylate HCl/ Atropine (Lomotil) 2.5 mg Q4H PRN ORAL Diarrhea 04/12/17 16:15 05/12/17 16:14 04/14/17 14:52 Dronabinol (Marinol) 5 mg BID ORAL 04/12/17 18:00 05/12/17 17:59 04/17/17 17:52 Ertapenem 1 gm/ Sodium Chloride 55 ml @ 110 mls/hr Q24H IVPB 04/14/17 18:00 04/19/17 17:59 04/17/17 17:51 Finasteride (Proscar) 5 mg DAILY ORAL 04/13/17 09:00 05/13/17 08:59 04/17/17 09:23 Heparin Sodium (Porcine) (Heparin 5000 units/ml) 5,000 units EVERY 12 HOURS SUBQ 04/12/17 21:00 05/12/17 20:59 Loperamide HCl (Imodium) 2 mg Q8HR ORAL 04/16/17 09:00 05/16/17 08:59 04/17/17 21:06 Lorazepam (Ativan 2mg/ml 1ml) 1 mg Q4H PRN IV agitation 04/12/17 15:45 04/19/17 15:44 Metoprolol Tartrate (Lopressor) 25 mg Q12HR ORAL 04/12/17 21:00 05/12/17 20:59 04/17/17 21:07 Metronidazole (Flagyl) 500 mg Q8H ORAL 04/14/17 20:00 04/21/17 19:59 04/17/17 21:06 Nitroglycerin (Ntg) 0.4 mg Q5M X 3 DOSES PRN SL Prn Chest Pain 04/12/17 15:45 05/12/17 15:44 Nortriptyline HCl (Pamelor) 25 mg QHS ORAL 04/12/17 21:00 05/12/17 20:59 04/17/17 21:06 Ondansetron HCl (Zofran) 4 mg Q6H PRN IVP Nausea & Vomiting 04/12/17 15:45 05/12/17 15:44 Pregabalin (Lyrica) 75 mg BIDPRN PRN ORAL NEUROPATHY 04/12/17 15:45 05/12/17 15:44 Promethazine HCl (Phenergan) 25 mg Q8H PRN IV refractory nausea 04/12/17 15:45 05/12/17 15:44 Ranitidine HCl (Zantac) 150 mg BEDTIME ORAL 04/13/17 21:00 05/13/17 20:59 04/17/17 21:06 Tamsulosin HCl (Flomax) 0.4 mg BID ORAL 04/12/17 18:00 05/12/17 17:59 04/17/17 17:52 Temazepam (Restoril) 15 mg HSPRN PRN ORAL Insomnia 04/12/17 15:45 04/19/17 15:44 Vancomycin HCl (Vancomycin) 250 mg FOUR TIMES A DAY ORAL 04/14/17 18:00 04/21/17 17:59 04/17/17 21:06 GOLDEN LIM Apr 17, 2017 21:21
[2017-04-18] MEDS: metroNIDAZOLE 500mg tab ORAL SCH ×3 (04:23→20:10)
[2017-04-18] MEDS: Loperamide 2mg cap ORAL SCH ×3 (05:57→21:25)
[2017-04-18] MEDS: D5 1/2NS 1,000 ML IV SCH ×2 (05:57→20:11)
[2017-04-18 08:00] VITALS: BP 145/69
[2017-04-18] MEDS: Heparin 5000 units/ml inj SUBQ SCH ×2 (09:00→21:00)
[2017-04-18] MEDS: Vancomycin oral 125mg/2.5ml ORAL SCH ×4 (09:00→21:25)
[2017-04-18] MEDS: Allopurinol 100mg Tab ORAL SCH (10:11)
[2017-04-18] MEDS: Metoprolol 25mg tab ORAL SCH ×2 (10:11→21:25)
[2017-04-18] MEDS: Dronabinol 2.5mg Cap ORAL SCH ×2 (10:11→17:26)
[2017-04-18] MEDS: Tamsulosin 0.4mg cap ORAL SCH ×2 (10:11→17:25)
--- NOTE | 2017-04-18 11:02 | Infectious Diseases Prog Note ---
Assessment/Plan Assessment/Plan ASSESSMENT: The patient is a 76-year-old male with: Extended spectrum beta-lactamases E. 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 Afebrile. History of multiple myeloma on chemo. History of GI trach amyloidosis. History of appendicitis. History of intraabdominal abscess in 2014. Hypertension. Prostate cancer. TURP. CAD. CABG PLAN: Cont pt on oral vancomycin and add Flagyl day # Invanz day # Monitor CBC Monitor BMP. Monitor blood culture Subjective Constitutional: Denies: no symptoms, fever, chills, fatigue, anorexia, drenching sweats, other Allergies: Coded Allergies: No Known Allergies (Unverified , 04/23/13) Subjective Diarrhea improving Objective Vital Signs Last 24 Hour Vital Signs Date Time Temp Pulse Resp B/P (MAP) Pulse Ox O2 Delivery O2 Flow Rate FiO2 04/18/17 10:11 68 145/69 04/18/17 10:10 68 145/69 04/18/17 08:00 96.8 68 18 145/69 100 Room Air 04/17/17 21:07 68 138/76 04/17/17 20:00 97.3 68 21 138/76 100 Room Air 04/17/17 16:00 98.1 77 18 130/62 100 Room Air 04/17/17 12:00 97.0 66 20 139/68 99 Room Air Height (Feet): 6 Height (Inches): 1.00 Weight (Pounds): 197 HEENT: anicteric Respiratory/Chest: no accessory muscle use Cardiovascular: regular rhythm Abdomen: non distended Current Medications Medications (Trade) Dose Ordered Sig/Antionette Route PRN Reason Start Time Stop Time Status Last Admin Dose Admin Acetaminophen (Tylenol) 650 mg Q4H PRN ORAL fever 04/12/17 15:45 05/12/17 15:44 Al Hydroxide/Mg Hydroxide (Mylanta II) 30 ml Q6H PRN ORAL dyspepsia 04/12/17 15:45 05/12/17 15:44 Allopurinol (Zyloprim) 300 mg DAILY ORAL 04/13/17 09:00 05/13/17 08:59 04/18/17 10:11 Amlodipine Besylate (Norvasc) 5 mg DAILY ORAL 04/13/17 09:00 05/13/17 08:59 04/18/17 10:10 Atorvastatin Calcium (Lipitor) 80 mg QHS ORAL 04/12/17 21:00 05/12/17 20:59 04/17/17 21:06 Chlorhexidine Gluconate (Lisette-Hex 2%) 1 applic DAILY@2000 TOPIC 04/15/17 20:00 05/15/17 19:59 04/17/17 21:05 Dextrose (Dextrose 50%) STAT PRN IV Hypoglycemia 04/12/17 15:45 05/12/17 15:44 Dextrose/Sodium Chloride 1,000 ml @ 75 mls/hr [id number] IV 04/12/17 17:45 05/12/17 17:44 04/18/17 05:57 Diphenhydramine HCl (Benadryl) 25 mg Q6H PRN ORAL Itching/Pruritis 04/12/17 15:45 05/12/17 15:44 Diphenoxylate HCl/ Atropine (Lomotil) 2.5 mg Q4H PRN ORAL Diarrhea 04/12/17 16:15 05/12/17 16:14 04/14/17 14:52 Dronabinol (Marinol) 5 mg BID ORAL 04/12/17 18:00 05/12/17 17:59 04/18/17 10:11 Ertapenem 1 gm/ Sodium Chloride 55 ml @ 110 mls/hr Q24H IVPB 04/14/17 18:00 04/23/17 17:59 04/17/17 17:51 Finasteride (Proscar) 5 mg DAILY ORAL 04/13/17 09:00 05/13/17 08:59 04/18/17 10:12 Heparin Sodium (Porcine) (Heparin 5000 units/ml) 5,000 units EVERY 12 HOURS SUBQ 04/12/17 21:00 05/12/17 20:59 Loperamide HCl (Imodium) 2 mg Q8HR ORAL 04/16/17 09:00 05/16/17 08:59 04/18/17 05:57 Lorazepam (Ativan 2mg/ml 1ml) 1 mg Q4H PRN IV agitation 04/12/17 15:45 04/19/17 15:44 Metoprolol Tartrate (Lopressor) 25 mg Q12HR ORAL 04/12/17 21:00 05/12/17 20:59 04/18/17 10:11 Metronidazole (Flagyl) 500 mg Q8H ORAL 04/14/17 20:00 04/21/17 19:59 04/18/17 04:23 Nitroglycerin (Ntg) 0.4 mg Q5M X 3 DOSES PRN SL Prn Chest Pain 04/12/17 15:45 05/12/17 15:44 Nortriptyline HCl (Pamelor) 25 mg QHS ORAL 04/12/17 21:00 05/12/17 20:59 04/17/17 21:06 Ondansetron HCl (Zofran) 4 mg Q6H PRN IVP Nausea & Vomiting 04/12/17 15:45 05/12/17 15:44 Pregabalin (Lyrica) 75 mg BIDPRN PRN ORAL NEUROPATHY 04/12/17 15:45 05/12/17 15:44 Promethazine HCl (Phenergan) 25 mg Q8H PRN IV refractory nausea 04/12/17 15:45 05/12/17 15:44 Ranitidine HCl (Zantac) 150 mg BEDTIME ORAL 04/13/17 21:00 05/13/17 20:59 04/17/17 21:06 Tamsulosin HCl (Flomax) 0.4 mg BID ORAL 04/12/17 18:00 05/12/17 17:59 04/18/17 10:11 Temazepam (Restoril) 15 mg HSPRN PRN ORAL Insomnia 04/12/17 15:45 04/19/17 15:44 Vancomycin HCl (Vancomycin) 250 mg FOUR TIMES A DAY ORAL 04/14/17 18:00 04/21/17 17:59 04/18/17 09:00 SRIKANTH ANAND M.D. Apr 18, 2017 11:01
--- NOTE | 2017-04-18 11:38 | Internal Med Progress Note ---
Subjective Date of Service: Apr 18, 2017 Physician Name Schilling,Elly Attending Physician Jovani Villagomez MD Current Medications Medications (Trade) Dose Ordered Sig/Antionette Route PRN Reason Start Time Stop Time Status Last Admin Dose Admin Acetaminophen (Tylenol) 650 mg Q4H PRN ORAL fever 04/12/17 15:45 05/12/17 15:44 Al Hydroxide/Mg Hydroxide (Mylanta II) 30 ml Q6H PRN ORAL dyspepsia 04/12/17 15:45 05/12/17 15:44 Allopurinol (Zyloprim) 300 mg DAILY ORAL 04/13/17 09:00 05/13/17 08:59 04/18/17 10:11 Amlodipine Besylate (Norvasc) 5 mg DAILY ORAL 04/13/17 09:00 05/13/17 08:59 04/18/17 10:10 Atorvastatin Calcium (Lipitor) 80 mg QHS ORAL 04/12/17 21:00 05/12/17 20:59 04/17/17 21:06 Chlorhexidine Gluconate (Lisette-Hex 2%) 1 applic DAILY@2000 TOPIC 04/15/17 20:00 05/15/17 19:59 04/17/17 21:05 Dextrose (Dextrose 50%) STAT PRN IV Hypoglycemia 04/12/17 15:45 05/12/17 15:44 Dextrose/Sodium Chloride 1,000 ml @ 75 mls/hr [id number] IV 04/12/17 17:45 05/12/17 17:44 04/18/17 05:57 Diphenhydramine HCl (Benadryl) 25 mg Q6H PRN ORAL Itching/Pruritis 04/12/17 15:45 05/12/17 15:44 Diphenoxylate HCl/ Atropine (Lomotil) 2.5 mg Q4H PRN ORAL Diarrhea 04/12/17 16:15 05/12/17 16:14 04/14/17 14:52 Dronabinol (Marinol) 5 mg BID ORAL 04/12/17 18:00 05/12/17 17:59 04/18/17 10:11 Ertapenem 1 gm/ Sodium Chloride 55 ml @ 110 mls/hr Q24H IVPB 04/14/17 18:00 04/23/17 17:59 04/17/17 17:51 Finasteride (Proscar) 5 mg DAILY ORAL 04/13/17 09:00 05/13/17 08:59 04/18/17 10:12 Heparin Sodium (Porcine) (Heparin 5000 units/ml) 5,000 units EVERY 12 HOURS SUBQ 04/12/17 21:00 05/12/17 20:59 Loperamide HCl (Imodium) 2 mg Q8HR ORAL 04/16/17 09:00 05/16/17 08:59 04/18/17 05:57 Lorazepam (Ativan 2mg/ml 1ml) 1 mg Q4H PRN IV agitation 04/12/17 15:45 04/19/17 15:44 Metoprolol Tartrate (Lopressor) 25 mg Q12HR ORAL 04/12/17 21:00 05/12/17 20:59 04/18/17 10:11 Metronidazole (Flagyl) 500 mg Q8H ORAL 04/14/17 20:00 04/21/17 19:59 04/18/17 11:31 Nitroglycerin (Ntg) 0.4 mg Q5M X 3 DOSES PRN SL Prn Chest Pain 04/12/17 15:45 05/12/17 15:44 Nortriptyline HCl (Pamelor) 25 mg QHS ORAL 04/12/17 21:00 05/12/17 20:59 04/17/17 21:06 Ondansetron HCl (Zofran) 4 mg Q6H PRN IVP Nausea & Vomiting 04/12/17 15:45 05/12/17 15:44 Pregabalin (Lyrica) 75 mg BIDPRN PRN ORAL NEUROPATHY 04/12/17 15:45 05/12/17 15:44 Promethazine HCl (Phenergan) 25 mg Q8H PRN IV refractory nausea 04/12/17 15:45 05/12/17 15:44 Ranitidine HCl (Zantac) 150 mg BEDTIME ORAL 04/13/17 21:00 05/13/17 20:59 04/17/17 21:06 Tamsulosin HCl (Flomax) 0.4 mg BID ORAL 04/12/17 18:00 05/12/17 17:59 04/18/17 10:11 Temazepam (Restoril) 15 mg HSPRN PRN ORAL Insomnia 04/12/17 15:45 04/19/17 15:44 Vancomycin HCl (Vancomycin) 250 mg FOUR TIMES A DAY ORAL 04/14/17 18:00 04/21/17 17:59 04/18/17 09:00 Allergies: Coded Allergies: No Known Allergies (Unverified , 04/23/13) ROS Limited/Unobtainable: No Constitutional: Reports: no symptoms HEENT: Reports: no symptoms Cardiovascular: Reports: no symptoms Respiratory: Reports: no symptoms Gastrointestinal/Abdominal: Reports: no symptoms Genitourinary: Reports: no symptoms Neurologic/Psychiatric: Reports: no symptoms Subjective 76 YO M admitted with left lower quadrant pain. Now UTI. Cover for Int Med-Dr Villagomez.. Await Discharge home with home health Objective Last Vital Signs Date Time Temp Pulse Resp B/P (MAP) Pulse Ox O2 Delivery O2 Flow Rate FiO2 04/18/17 10:11 68 145/69 04/18/17 08:00 96.8 18 100 Room Air Objective General Appearance: WD/WN, no apparent distress, alert EENT: PERRL/EOMI, normal ENT inspection, TMs normal Neck: non-tender, normal alignment, supple, normal inspection Cardiovascular: normal peripheral pulses, normal rate, regular rhythm, no gallop/murmur, no JVD Respiratory/Chest: chest wall non-tender, lungs clear, normal breath sounds, no respiratory distress, no accessory muscle use Abdomen: normal bowel sounds, soft, no organomegaly, guarding, rebound, tender Extremities: normal range of motion, non-tender Neurologic: ux designer II-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 Coli-Multi drug resistant. See ID note. Continue ertapenem (3) Clostridium difficile colitis Assessment & Plan: Continue vanco and flagyl. See GI note (4) Amyloidosis Assessment & Plan: GI-see gastroenterology note (5) Multiple myeloma (6) HTN (hypertension) Assessment & Plan: Cont norvasc and lopressor (7) Anemia (8) CAD (coronary artery disease) (9) BPH (benign prostatic hyperplasia) Status: ELLY Leahy Apr 18, 2017 11:38
[2017-04-18] MEDS ORDERED: FLAGYL500 MG ORAL (11:56)
[2017-04-18] MEDS ORDERED: INVANZ1 G1 IM (11:56)
[2017-04-18] MEDS ORDERED: VANCOMYCIN250 MG/5 M ORAL (11:56)
[2017-04-18 12:00] VITALS: BP 141/72
--- NOTE | 2017-04-18 12:23 | GI Progress Note ---
Assessment/Plan Problems: (1) Chemotherapy-induced diarrhea ICD Codes: K52.1 - Toxic gastroenteritis and colitis; T45.1X5A - Adverse effect of antineoplastic and immunosuppressive drugs, initial encounter SNOMED: 446488454, 748073888 (2) Clostridium difficile colitis ICD Codes: A04.7 - Enterocolitis due to Clostridium difficile SNOMED: 272299292 (3) Anemia ICD Codes: D64.9 - Anemia SNOMED: 535299080 (4) Clostridium difficile diarrhea ICD Codes: A04.72 - Enterocolitis due to Clostridium difficile, not specified as recurrent SNOMED: 2268205132773 (5) Amyloidosis ICD Codes: E85.9 - Amyloidosis, unspecified SNOMED: 54317002 Status: stable Status Narrative Discussed with Dr. Flores. Assessment/Plan s/p EGD/colonoscopy 2015 >> amyloidosis stool culture normal folate/B12 WNL Vit D deficiency abdominal U/S unremarkable PICC in place on abx monitor H&H, prn transfusions low residual/fiber diet / lactose free diet IV hydration + electrolyte replacement lomotil prn H2B fu labs fu Vit D dc planning Subjective Subjective diarrhea improved Objective Last 24 Hour Vital Signs Date Time Temp Pulse Resp B/P (MAP) Pulse Ox O2 Delivery O2 Flow Rate FiO2 04/18/17 10:11 68 145/69 04/18/17 10:10 68 145/69 04/18/17 08:00 96.8 68 18 145/69 100 Room Air 04/17/17 21:07 68 138/76 04/17/17 20:00 97.3 68 21 138/76 100 Room Air 04/17/17 16:00 98.1 77 18 130/62 100 Room Air Height (Feet): 6 Height (Inches): 1.00 Weight (Pounds): 197 General Appearance: WD/WN, no apparent distress, alert Cardiovascular: normal rate Respiratory/Chest: normal breath sounds, no respiratory distress Abdominal Exam: normal bowel sounds, non tender, soft Extremities: normal range of motion, non-tender Domenica Chanel N.P. Apr 18, 2017 12:23
--- NOTE | 2017-04-18 15:17 | Pulmonology Progress Note ---
Assessment/Plan Problems: (1) Sepsis (2) Multiple myeloma (3) UTI (urinary tract infection) (4) C. difficile colitis (5) Hypertension Assessment/Plan still diarrhea 4 times ESBL in urine continue abx check cultures check electrolytes all notes and meds reviewed dc planning Subjective ROS Limited/Unobtainable: No Constitutional: Reports: no symptoms HEENT: Repors: no symptoms Allergies: Coded Allergies: No Known Allergies (Unverified , 04/23/13) Objective Last 24 Hour Vital Signs Date Time Temp Pulse Resp B/P (MAP) Pulse Ox O2 Delivery O2 Flow Rate FiO2 04/18/17 12:00 97.0 71 18 141/72 100 Room Air 04/18/17 10:11 68 145/69 04/18/17 10:10 68 145/69 04/18/17 08:00 96.8 68 18 145/69 100 Room Air 04/17/17 21:07 68 138/76 04/17/17 20:00 97.3 68 21 138/76 100 Room Air 04/17/17 16:00 98.1 77 18 130/62 100 Room Air Objective General Appearance: WD/WN, no apparent distress Lines, tubes and drains: peripheral, HEENT: normocephalic, anicteric Neck: non-tender, normal alignment Respiratory/Chest: chest wall non-tender, lungs clear Cardiovascular/Chest: normal rate, regular rhythm Abdomen: non tender, soft Genitourinary/Rectal: normal genital exam, normal rectal exam Extremities: normal range of motion, non-pitting Current Medications Medications (Trade) Dose Ordered Sig/Antionette Route PRN Reason Start Time Stop Time Status Last Admin Dose Admin Acetaminophen (Tylenol) 650 mg Q4H PRN ORAL fever 04/12/17 15:45 05/12/17 15:44 Al Hydroxide/Mg Hydroxide (Mylanta II) 30 ml Q6H PRN ORAL dyspepsia 04/12/17 15:45 05/12/17 15:44 Allopurinol (Zyloprim) 300 mg DAILY ORAL 04/13/17 09:00 05/13/17 08:59 04/18/17 10:11 Amlodipine Besylate (Norvasc) 5 mg DAILY ORAL 04/13/17 09:00 05/13/17 08:59 04/18/17 10:10 Atorvastatin Calcium (Lipitor) 80 mg QHS ORAL 04/12/17 21:00 05/12/17 20:59 04/17/17 21:06 Chlorhexidine Gluconate (Lisette-Hex 2%) 1 applic DAILY@2000 TOPIC 04/15/17 20:00 05/15/17 19:59 04/17/17 21:05 Dextrose (Dextrose 50%) STAT PRN IV Hypoglycemia 04/12/17 15:45 05/12/17 15:44 Dextrose/Sodium Chloride 1,000 ml @ 75 mls/hr [id number] IV 04/12/17 17:45 05/12/17 17:44 04/18/17 05:57 Diphenhydramine HCl (Benadryl) 25 mg Q6H PRN ORAL Itching/Pruritis 04/12/17 15:45 05/12/17 15:44 Diphenoxylate HCl/ Atropine (Lomotil) 2.5 mg Q4H PRN ORAL Diarrhea 04/12/17 16:15 05/12/17 16:14 04/14/17 14:52 Dronabinol (Marinol) 5 mg BID ORAL 04/12/17 18:00 05/12/17 17:59 04/18/17 10:11 Ertapenem 1 gm/ Sodium Chloride 55 ml @ 110 mls/hr Q24H IVPB 04/14/17 18:00 04/23/17 17:59 04/17/17 17:51 Finasteride (Proscar) 5 mg DAILY ORAL 04/13/17 09:00 05/13/17 08:59 04/18/17 10:12 Heparin Sodium (Porcine) (Heparin 5000 units/ml) 5,000 units EVERY 12 HOURS SUBQ 04/12/17 21:00 05/12/17 20:59 Loperamide HCl (Imodium) 2 mg Q8HR ORAL 04/16/17 09:00 05/16/17 08:59 04/18/17 14:32 Lorazepam (Ativan 2mg/ml 1ml) 1 mg Q4H PRN IV agitation 04/12/17 15:45 04/19/17 15:44 Metoprolol Tartrate (Lopressor) 25 mg Q12HR ORAL 04/12/17 21:00 05/12/17 20:59 11/13/17 10:11 Metronidazole (Flagyl) 500 mg Q8H ORAL 04/14/17 20:00 04/21/17 19:59 04/18/17 11:31 Nitroglycerin (Ntg) 0.4 mg Q5M X 3 DOSES PRN SL Prn Chest Pain 04/12/17 15:45 05/12/17 15:44 Nortriptyline HCl (Pamelor) 25 mg QHS ORAL 04/12/17 21:00 05/12/17 20:59 04/17/17 21:06 Ondansetron HCl (Zofran) 4 mg Q6H PRN IVP Nausea & Vomiting 04/12/17 15:45 05/12/17 15:44 Pregabalin (Lyrica) 75 mg BIDPRN PRN ORAL NEUROPATHY 04/12/17 15:45 05/12/17 15:44 Promethazine HCl (Phenergan) 25 mg Q8H PRN IV refractory nausea 04/12/17 15:45 05/12/17 15:44 Ranitidine HCl (Zantac) 150 mg BEDTIME ORAL 04/13/17 21:00 05/13/17 20:59 04/17/17 21:06 Tamsulosin HCl (Flomax) 0.4 mg BID ORAL 04/12/17 18:00 05/12/17 17:59 04/18/17 10:11 Temazepam (Restoril) 15 mg HSPRN PRN ORAL Insomnia 04/12/17 15:45 04/19/17 15:44 Vancomycin HCl (Vancomycin) 250 mg FOUR TIMES A DAY ORAL 04/14/17 18:00 04/21/17 17:59 04/18/17 13:16 GOLDEN LIM Apr 18, 2017 15:17
[2017-04-18 16:00] VITALS: BP 100/64
[2017-04-18] MEDS: Ertapenem 1 GM in NS 55 ML IVPB SCH (17:25)
[2017-04-18 20:00] VITALS: BP 123/72
[2017-04-18] MEDS: Dyna-Hex 2% Top Sol 2oz TOPIC SCH (20:10)
[2017-04-18] MEDS: Nortriptyline 25mg cap ORAL SCH (21:25)
[2017-04-18] MEDS: Atorvastatin 80mg tab ORAL SCH (21:26)
[2017-04-19] MEDS: metroNIDAZOLE 500mg tab ORAL SCH ×3 (03:48→20:29)
[2017-04-19] MEDS: Lyrica 75mg cap ORAL PRN (03:49)
[2017-04-19] MEDS: Loperamide 2mg cap ORAL SCH ×3 (05:38→20:30)
[2017-04-19 06:53] LABS: EOSINOPHILS % (AUTO) 3.1 % (0.0-3.0); MEAN CORPUSCULAR HEMOGLOBIN 33.4 PG (27.0-31.0); MEAN CORPUSCULAR HGB CONC 33.6 G/DL (32.0-36.0); MEAN CORPUSCULAR VOLUME 99 FL (80-99); MEAN PLATELET VOLUME 6.9 FL (6.5-10.1); MONOCYTES % (AUTO) 11.7 % (1.0-10.0); NEUTROPHILS % (AUTO) 67.1 % (45.0-75.0); PLATELET COUNT 114 K/UL (150-450); RED BLOOD COUNT 3.19 M/UL (4.70-6.10); RED CELL DISTRIBUTION WIDTH 14.4 % (11.6-14.8); WHITE BLOOD COUNT 5.8 K/UL (4.8-10.8)
[2017-04-19 06:56] LABS: ANION GAP 10 mmol/L (5-15); CALCIUM 8.7 MG/DL (8.5-10.1); CARBON DIOXIDE 25 MMOL/L (21-32); CHLORIDE 107 MMOL/L (98-107); CREATININE 1.2 MG/DL (0.55-1.30); POTASSIUM 3.5 MMOL/L (3.5-5.1); SODIUM 142 MMOL/L (136-145)
[2017-04-19] MEDS: Dronabinol 2.5mg Cap ORAL SCH ×2 (08:02→16:45)
[2017-04-19] MEDS: Allopurinol 100mg Tab ORAL SCH (08:02)
[2017-04-19] MEDS: Tamsulosin 0.4mg cap ORAL SCH ×2 (08:03→17:24)
[2017-04-19] MEDS: Heparin 5000 units/ml inj SUBQ SCH ×2 (08:06→20:32)
[2017-04-19] MEDS: Metoprolol 25mg tab ORAL SCH ×2 (08:09→20:33)
[2017-04-19] MEDS: Vancomycin oral 125mg/2.5ml ORAL SCH ×4 (08:12→20:32)
[2017-04-19 08:33] VITALS: BP 148/80
--- NOTE | 2017-04-19 09:04 | Infectious Diseases Prog Note ---
Assessment/Plan Assessment/Plan ASSESSMENT: The patient is a 76-year-old male with: Extended spectrum beta-lactamases E. 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 Afebrile. History of multiple myeloma on chemo. History of GI trach amyloidosis. History of appendicitis. History of intraabdominal abscess in 2014. Hypertension. Prostate cancer. TURP. CAD. CABG PLAN: Cont pt on oral vancomycin , Flagyl and Invanz day # Monitor CBC Monitor BMP. Monitor blood culture Subjective Allergies: Coded Allergies: No Known Allergies (Unverified , 04/23/13) Subjective afebrile Objective Vital Signs Last 24 Hour Vital Signs Date Time Temp Pulse Resp B/P (MAP) Pulse Ox O2 Delivery O2 Flow Rate FiO2 04/19/17 08:33 97.3 75 20 148/80 100 Room Air 04/19/17 08:09 70 148/80 04/19/17 08:09 70 148/80 04/19/17 04:48 97.2 04/18/17 21:25 71 123/72 04/18/17 20:00 97.2 71 20 123/72 96 Room Air 04/18/17 16:00 97.3 78 20 100/64 99 Room Air 04/18/17 12:00 97.0 71 18 141/72 100 Room Air 04/18/17 10:11 68 145/69 04/18/17 10:10 68 145/69 Height (Feet): 6 Height (Inches): 1.00 Weight (Pounds): 197 HEENT: anicteric Respiratory/Chest: normal breath sounds Cardiovascular: regular rhythm Abdomen: soft, non tender Laboratory Tests Test 04/19/17 05:00 White Blood Count 5.8 K/UL (4.8-10.8) Red Blood Count 3.19 M/UL (4.70-6.10) L Hemoglobin 10.7 G/DL (14.2-18.0) L Hematocrit 31.7 % (42.0-52.0) L Mean Corpuscular Volume 99 FL (80-99) Mean Corpuscular Hemoglobin 33.4 PG (27.0-31.0) H Mean Corpuscular Hemoglobin Concent 33.6 G/DL (32.0-36.0) Red Cell Distribution Width 14.4 % (11.6-14.8) Platelet Count 114 K/UL (150-450) L Mean Platelet Volume 6.9 FL (6.5-10.1) Neutrophils (%) (Auto) 67.1 % (45.0-75.0) Lymphocytes (%) (Auto) 17.0 % (20.0-45.0) L Monocytes (%) (Auto) 11.7 % (1.0-10.0) H Eosinophils (%) (Auto) 3.1 % (0.0-3.0) H Basophils (%) (Auto) 1.0 % (0.0-2.0) Sodium Level 142 MMOL/L (136-145) Potassium Level 3.5 MMOL/L (3.5-5.1) Chloride Level 107 MMOL/L (98-107) Carbon Dioxide Level 25 MMOL/L (21-32) Anion Gap 10 mmol/L (5-15) Blood Urea Nitrogen 4 mg/dL (7-18) L Creatinine 1.2 MG/DL (0.55-1.30) Estimat Glomerular Filtration Rate mL/min (>60) Glucose Level 87 MG/DL (74-106) Calcium Level 8.7 MG/DL (8.5-10.1) Current Medications Medications (Trade) Dose Ordered Sig/Antionette Route PRN Reason Start Time Stop Time Status Last Admin Dose Admin Acetaminophen (Tylenol) 650 mg Q4H PRN ORAL fever 04/12/17 15:45 05/12/17 15:44 Al Hydroxide/Mg Hydroxide (Mylanta II) 30 ml Q6H PRN ORAL dyspepsia 04/12/17 15:45 05/12/17 15:44 Allopurinol (Zyloprim) 300 mg DAILY ORAL 04/13/17 09:00 05/13/17 08:59 04/19/17 08:02 Amlodipine Besylate (Norvasc) 5 mg DAILY ORAL 04/13/17 09:00 05/13/17 08:59 04/19/17 08:09 Atorvastatin Calcium (Lipitor) 80 mg QHS ORAL 04/12/17 21:00 05/12/17 20:59 04/18/17 21:26 Chlorhexidine Gluconate (Lisette-Hex 2%) 1 applic DAILY@1999 TOPIC 04/15/17 20:00 05/15/17 19:59 04/18/17 20:10 Dextrose (Dextrose 50%) STAT PRN IV Hypoglycemia 04/12/17 15:45 05/12/17 15:44 Dextrose/Sodium Chloride 1,000 ml @ 75 mls/hr [id number] IV 04/12/17 17:45 05/12/17 17:44 04/18/17 20:11 Diphenhydramine HCl (Benadryl) 25 mg Q6H PRN ORAL Itching/Pruritis 04/12/17 15:45 05/12/17 15:44 Diphenoxylate HCl/ Atropine (Lomotil) 2.5 mg Q4H PRN ORAL Diarrhea 04/12/17 16:15 05/12/17 16:14 04/14/17 14:52 Dronabinol (Marinol) 5 mg BID ORAL 04/12/17 18:00 05/12/17 17:59 04/19/17 08:02 Ertapenem 1 gm/ Sodium Chloride 55 ml @ 110 mls/hr Q24H IVPB 04/14/17 18:00 04/23/17 17:59 04/17/17 17:51 Finasteride (Proscar) 5 mg DAILY ORAL 04/13/17 09:00 05/13/17 08:59 04/19/17 08:02 Heparin Sodium (Porcine) (Heparin 5000 units/ml) 5,000 units EVERY 12 HOURS SUBQ 04/12/17 21:00 05/12/17 20:59 Loperamide HCl (Imodium) 2 mg Q8HR ORAL 04/16/17 09:00 05/16/17 08:59 04/19/17 05:38 Lorazepam (Ativan 2mg/ml 1ml) 1 mg Q4H PRN IV agitation 04/12/17 15:45 04/19/17 15:44 Metoprolol Tartrate (Lopressor) 25 mg Q12HR ORAL 04/12/17 21:00 05/12/17 20:59 04/19/17 08:09 Metronidazole (Flagyl) 500 mg Q8H ORAL 04/14/17 20:00 04/21/17 19:59 04/19/17 03:48 Nitroglycerin (Ntg) 0.4 mg Q5M X 3 DOSES PRN SL Prn Chest Pain 04/12/17 15:45 05/12/17 15:44 Nortriptyline HCl (Pamelor) 25 mg QHS ORAL 04/12/17 21:00 05/12/17 20:59 04/18/17 21:25 Ondansetron HCl (Zofran) 4 mg Q6H PRN IVP Nausea & Vomiting 04/12/17 15:45 05/12/17 15:44 Pregabalin (Lyrica) 75 mg BIDPRN PRN ORAL NEUROPATHY 04/12/17 15:45 05/12/17 15:44 04/19/17 03:49 Promethazine HCl (Phenergan) 25 mg Q8H PRN IV refractory nausea 04/12/17 15:45 05/12/17 15:44 Ranitidine HCl (Zantac) 150 mg BEDTIME ORAL 04/13/17 21:00 05/13/17 20:59 04/18/17 21:26 Tamsulosin HCl (Flomax) 0.4 mg BID ORAL 04/12/17 18:00 05/12/17 17:59 04/19/17 08:03 Temazepam (Restoril) 15 mg HSPRN PRN ORAL Insomnia 04/12/17 15:45 04/19/17 15:44 Vancomycin HCl (Vancomycin) 250 mg FOUR TIMES A DAY ORAL 04/14/17 18:00 04/21/17 17:59 04/19/17 08:12 SRIKANTH ANAND M.D. 14, 2017 09:04
[2017-04-19] MEDS: D5 1/2NS 1,000 ML IV SCH ×2 (09:45→23:05)
[2017-04-19 10:30] VITALS: BP 112/74
[2017-04-19 12:01] VITALS: BP 112/66
[2017-04-19] MEDS ORDERED: D5 1/2NS 1000ml IV ONE (13:04)
--- NOTE | 2017-04-19 15:10 | Pulmonology Progress Note ---
Assessment/Plan Problems: (1) Sepsis (2) Multiple myeloma (3) UTI (urinary tract infection) (4) C. difficile colitis (5) Hypertension Assessment/Plan no new complains still diarrhea 4 times ESBL in urine continue abx check cultures check electrolytes all notes and meds reviewed dc planning home with HH Subjective ROS Limited/Unobtainable: No Constitutional: Reports: no symptoms HEENT: Repors: no symptoms Respiratory: Reports: no symptoms Allergies: Coded Allergies: No Known Allergies (Unverified , 04/23/13) Objective Last 24 Hour Vital Signs Date Time Temp Pulse Resp B/P (MAP) Pulse Ox O2 Delivery O2 Flow Rate FiO2 04/19/17 12:01 97.3 64 20 112/66 98 Room Air 04/19/17 10:30 97.3 71 16 112/74 100 Room Air 04/19/17 08:33 97.3 75 20 148/80 100 Room Air 04/19/17 08:09 70 148/80 04/19/17 08:09 70 148/80 04/19/17 04:48 97.2 04/18/17 21:25 71 123/72 04/18/17 20:00 97.2 71 20 123/72 96 Room Air 04/18/17 16:00 97.3 78 20 100/64 99 Room Air Intake and Output 04/19/17 04/20/17 19:00 07:00 Intake Total 360 ml Balance 360 ml Intake Oral 360 ml Objective General Appearance: WD/WN, no apparent distress Lines, tubes and drains: peripheral, HEENT: normocephalic, anicteric Neck: non-tender, normal alignment Respiratory/Chest: chest wall non-tender, lungs clear Cardiovascular/Chest: normal rate, regular rhythm Abdomen: non tender, soft Genitourinary/Rectal: normal genital exam, normal rectal exam Extremities: normal range of motion, non-pitting Laboratory Tests 04/19/17 05:00: White Blood Count 5.8, Red Blood Count 3.19L, Hemoglobin 10.7L, Hematocrit 31.7L , Mean Corpuscular Volume 99, Mean Corpuscular Hemoglobin 33.4H, Mean Corpuscular Hemoglobin Concent 33.6, Red Cell Distribution Width 14.4, Platelet Count 114L, Mean Platelet Volume 6.9, Neutrophils (%) (Auto) 67.1, Lymphocytes ( %) (Auto) 17.0L, Monocytes (%) (Auto) 11.7H, Eosinophils (%) (Auto) 3.1H, Basophils (%) (Auto) 1.0, Sodium Level 142, Potassium Level 3.5, Chloride Level 107, Carbon Dioxide Level 25, Anion Gap 10, Blood Urea Nitrogen 4L, Creatinine 1.2, Estimat Glomerular Filtration Rate , Glucose Level 87, Calcium Level 8.7 Current Medications Medications (Trade) Dose Ordered Sig/Antionette Route PRN Reason Start Time Stop Time Status Last Admin Dose Admin Acetaminophen (Tylenol) 650 mg Q4H PRN ORAL fever 04/12/17 15:45 05/12/17 15:44 Al Hydroxide/Mg Hydroxide (Mylanta II) 30 ml Q6H PRN ORAL dyspepsia 04/12/17 15:45 05/12/17 15:44 Allopurinol (Zyloprim) 300 mg DAILY ORAL 04/13/17 09:00 05/13/17 08:59 04/19/17 08:02 Amlodipine Besylate (Norvasc) 5 mg DAILY ORAL 04/13/17 09:00 05/13/17 08:59 04/19/17 08:09 Atorvastatin Calcium (Lipitor) 80 mg QHS ORAL 04/12/17 21:00 05/12/17 20:59 04/18/17 21:26 Chlorhexidine Gluconate (Lisette-Hex 2%) 1 applic DAILY@2000 TOPIC 04/15/17 20:00 05/15/17 19:59 04/18/17 20:10 Dextrose (Dextrose 50%) STAT PRN IV Hypoglycemia 04/12/17 15:45 05/12/17 15:44 Dextrose/Sodium Chloride 1,000 ml @ 75 mls/hr [id number] IV 04/12/17 17:45 05/12/17 17:44 04/19/17 09:45 Diphenhydramine HCl (Benadryl) 25 mg Q6H PRN ORAL Itching/Pruritis 04/12/17 15:45 05/12/17 15:44 Diphenoxylate HCl/ Atropine (Lomotil) 2.5 mg Q4H PRN ORAL Diarrhea 04/12/17 16:15 05/12/17 16:14 04/14/17 14:52 Dronabinol (Marinol) 5 mg BID ORAL 04/12/17 18:00 05/12/17 17:59 04/19/17 08:02 Ertapenem 1 gm/ Sodium Chloride 55 ml @ 110 mls/hr Q24H IVPB 04/14/17 18:00 04/23/17 17:59 04/17/17 17:51 Finasteride (Proscar) 5 mg DAILY ORAL 04/13/17 09:00 05/13/17 08:59 04/19/17 08:02 Heparin Sodium (Porcine) (Heparin 5000 units/ml) 5,000 units EVERY 12 HOURS SUBQ 04/12/17 21:00 05/12/17 20:59 Loperamide HCl (Imodium) 2 mg Q8HR ORAL 04/16/17 09:00 05/16/17 08:59 04/19/17 14:03 Lorazepam (Ativan 2mg/ml 1ml) 1 mg Q4H PRN IV agitation 04/12/17 15:45 04/19/17 15:44 Metoprolol Tartrate (Lopressor) 25 mg Q12HR ORAL 04/12/17 21:00 05/12/17 20:59 04/19/17 08:09 Metronidazole (Flagyl) 500 mg Q8H ORAL 04/14/17 20:00 04/21/17 19:59 04/19/17 11:56 Nitroglycerin (Ntg) 0.4 mg Q5M X 3 DOSES PRN SL Prn Chest Pain 04/12/17 15:45 05/12/17 15:44 Nortriptyline HCl (Pamelor) 25 mg QHS ORAL 04/12/17 21:00 05/12/17 20:59 04/18/17 21:25 Ondansetron HCl (Zofran) 4 mg Q6H PRN IVP Nausea & Vomiting 04/12/17 15:45 05/12/17 15:44 Pregabalin (Lyrica) 75 mg BIDPRN PRN ORAL NEUROPATHY 04/12/17 15:45 05/12/17 15:44 04/19/17 03:49 Promethazine HCl (Phenergan) 25 mg Q8H PRN IV refractory nausea 04/12/17 15:45 05/12/17 15:44 Ranitidine HCl (Zantac) 150 mg BEDTIME ORAL 04/13/17 21:00 05/13/17 20:59 04/18/17 21:26 Tamsulosin HCl (Flomax) 0.4 mg BID ORAL 04/12/17 18:00 05/12/17 17:59 04/19/17 08:03 Temazepam (Restoril) 15 mg HSPRN PRN ORAL Insomnia 04/12/17 15:45 04/19/17 15:44 Vancomycin HCl (Vancomycin) 250 mg FOUR TIMES A DAY ORAL 04/19/17 13:00 04/21/17 17:59 04/19/17 11:59 GOLDEN LIM Apr 19, 2017 15:09
--- NOTE | 2017-04-19 16:29 | Internal Med Progress Note ---
Subjective Date of Service: Apr 19, 2017 Physician Name EliasElly Attending Physician Jovani Villagomez MD Current Medications Medications (Trade) Dose Ordered Sig/Antionette Route PRN Reason Start Time Stop Time Status Last Admin Dose Admin Acetaminophen (Tylenol) 650 mg Q4H PRN ORAL fever 04/12/17 15:45 05/12/17 15:44 Al Hydroxide/Mg Hydroxide (Mylanta II) 30 ml Q6H PRN ORAL dyspepsia 04/12/17 15:45 05/12/17 15:44 Allopurinol (Zyloprim) 300 mg DAILY ORAL 04/13/17 09:00 05/13/17 08:59 04/19/17 08:02 Amlodipine Besylate (Norvasc) 5 mg DAILY ORAL 04/13/17 09:00 05/13/17 08:59 04/19/17 08:09 Atorvastatin Calcium (Lipitor) 80 mg QHS ORAL 04/12/17 21:00 05/12/17 20:59 04/18/17 21:26 Chlorhexidine Gluconate (Lisette-Hex 2%) 1 applic DAILY@2000 TOPIC 04/15/17 20:00 05/15/17 19:59 04/18/17 20:10 Dextrose (Dextrose 50%) STAT PRN IV Hypoglycemia 04/12/17 15:45 05/12/17 15:44 Dextrose/Sodium Chloride 1,000 ml @ 75 mls/hr [id number] IV 04/12/17 17:45 05/12/17 17:44 04/19/17 09:45 Diphenhydramine HCl (Benadryl) 25 mg Q6H PRN ORAL Itching/Pruritis 04/12/17 15:45 05/12/17 15:44 Diphenoxylate HCl/ Atropine (Lomotil) 2.5 mg Q4H PRN ORAL Diarrhea 04/12/17 16:15 05/12/17 16:14 04/14/17 14:52 Dronabinol (Marinol) 5 mg BID ORAL 04/12/17 18:00 05/12/17 17:59 04/19/17 08:02 Ertapenem 1 gm/ Sodium Chloride 55 ml @ 110 mls/hr Q24H IVPB 04/14/17 18:00 04/23/17 17:59 04/17/17 17:51 Finasteride (Proscar) 5 mg DAILY ORAL 04/13/17 09:00 05/13/17 08:59 04/19/17 08:02 Heparin Sodium (Porcine) (Heparin 5000 units/ml) 5,000 units EVERY 12 HOURS SUBQ 04/12/17 21:00 05/12/17 20:59 Loperamide HCl (Imodium) 2 mg Q8HR ORAL 04/16/17 09:00 05/16/17 08:59 04/19/17 14:03 Metoprolol Tartrate (Lopressor) 25 mg Q12HR ORAL 04/12/17 21:00 05/12/17 20:59 04/19/17 08:09 Metronidazole (Flagyl) 500 mg Q8H ORAL 04/14/17 20:00 04/21/17 19:59 04/19/17 11:56 Nitroglycerin (Ntg) 0.4 mg Q5M X 3 DOSES PRN SL Prn Chest Pain 04/12/17 15:45 05/12/17 15:44 Nortriptyline HCl (Pamelor) 25 mg QHS ORAL 04/12/17 21:00 05/12/17 20:59 04/18/17 21:25 Ondansetron HCl (Zofran) 4 mg Q6H PRN IVP Nausea & Vomiting 04/12/17 15:45 05/12/17 15:44 Pregabalin (Lyrica) 75 mg BIDPRN PRN ORAL NEUROPATHY 04/12/17 15:45 05/12/17 15:44 04/19/17 03:49 Promethazine HCl (Phenergan) 25 mg Q8H PRN IV refractory nausea 04/12/17 15:45 05/12/17 15:44 Ranitidine HCl (Zantac) 150 mg BEDTIME ORAL 04/13/17 21:00 05/13/17 20:59 04/18/17 21:26 Tamsulosin HCl (Flomax) 0.4 mg BID ORAL 04/12/17 18:00 05/12/17 17:59 04/19/17 08:03 Vancomycin HCl (Vancomycin) 250 mg FOUR TIMES A DAY ORAL 04/19/17 13:00 04/21/17 17:59 04/19/17 11:59 Allergies: Coded Allergies: No Known Allergies (Unverified , 11/18/13) ROS Limited/Unobtainable: Yes Subjective 76 YO M admitted with left lower quadrant pain. Now UTI. Cover for Int Med-Dr Villagomez.. Patient confused today-new for him; slurred speech Objective Last Vital Signs Date Time Temp Pulse Resp B/P (MAP) Pulse Ox O2 Delivery O2 Flow Rate FiO2 04/19/17 12:01 97.3 64 20 112/66 98 Room Air Laboratory Tests Test 04/19/17 05:00 White Blood Count 5.8 K/UL (4.8-10.8) Red Blood Count 3.19 M/UL (4.70-6.10) L Hemoglobin 10.7 G/DL (14.2-18.0) L Hematocrit 31.7 % (42.0-52.0) L Mean Corpuscular Volume 99 FL (80-99) Mean Corpuscular Hemoglobin 33.4 PG (27.0-31.0) H Mean Corpuscular Hemoglobin Concent 33.6 G/DL (32.0-36.0) Red Cell Distribution Width 14.4 % (11.6-14.8) Platelet Count 114 K/UL (150-450) L Mean Platelet Volume 6.9 FL (6.5-10.1) Neutrophils (%) (Auto) 67.1 % (45.0-75.0) Lymphocytes (%) (Auto) 17.0 % (20.0-45.0) L Monocytes (%) (Auto) 11.7 % (1.0-10.0) H Eosinophils (%) (Auto) 3.1 % (0.0-3.0) H Basophils (%) (Auto) 1.0 % (0.0-2.0) Sodium Level 142 MMOL/L (136-145) Potassium Level 3.5 MMOL/L (3.5-5.1) Chloride Level 107 MMOL/L (98-107) Carbon Dioxide Level 25 MMOL/L (21-32) Anion Gap 10 mmol/L (5-15) Blood Urea Nitrogen 4 mg/dL (7-18) L Creatinine 1.2 MG/DL (0.55-1.30) Estimat Glomerular Filtration Rate mL/min (>60) Glucose Level 87 MG/DL (74-106) Calcium Level 8.7 MG/DL (8.5-10.1) Intake and Output 04/19/17 04/20/17 19:00 07:00 Intake Total 360 ml Balance 360 ml Intake Oral 360 ml Objective General Appearance: WD/WN, no apparent distress, alert EENT: PERRL/EOMI, normal ENT inspection, TMs normal Neck: non-tender, normal alignment, supple, normal inspection Cardiovascular: normal peripheral pulses, normal rate, regular rhythm, no gallop/murmur, no JVD Respiratory/Chest: chest wall non-tender, lungs clear, normal breath sounds, no respiratory distress, no accessory muscle use Abdomen: normal bowel sounds, soft, no organomegaly, guarding, rebound, tender Extremities: normal range of motion, non-tender 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 Coli-Multi drug resistant. See ID note. Continue ertapenem (3) Clostridium difficile colitis Assessment & Plan: Continue vanco and flagyl. See GI note (4) Amyloidosis Assessment & Plan: GI-see gastroenterology note (5) Multiple myeloma (6) HTN (hypertension) Assessment & Plan: Cont norvasc and lopressor (7) Anemia (8) CAD (coronary artery disease) (9) BPH (benign prostatic hyperplasia) (10) Confused Assessment & Plan: ?CVA vs medication? MRI brain. Neuro consult Status: deteriorating ELLY ELIAS Apr 19, 2017 16:29
[2017-04-19 16:32] VITALS: BP 122/58
--- NOTE | 2017-04-19 17:01 | GI Progress Note ---
Assessment/Plan Problems: (1) Chemotherapy-induced diarrhea ICD Codes: K52.1 - Toxic gastroenteritis and colitis; T45.1X5A - Adverse effect of antineoplastic and immunosuppressive drugs, initial encounter SNOMED: 475378001, 653956332 (2) Clostridium difficile colitis ICD Codes: A04.7 - Enterocolitis due to Clostridium difficile SNOMED: 402226399 (3) Anemia ICD Codes: D64.9 - Anemia SNOMED: 021091529 (4) Clostridium difficile diarrhea ICD Codes: A04.72 - Enterocolitis due to Clostridium difficile, not specified as recurrent SNOMED: 5943177727556 (5) Amyloidosis ICD Codes: E85.9 - Amyloidosis, unspecified SNOMED: 74546930 Status: stable Status Narrative Discussed with Dr. Flores. Assessment/Plan s/p EGD/colonoscopy 2015 >> amyloidosis stool culture normal folate/B12 WNL Vit D deficiency abdominal U/S unremarkable PICC in place on abx monitor H&H, prn transfusions low residual/fiber diet / lactose free diet IV hydration + electrolyte replacement lomotil prn H2B fu labs Vit D daily dc planning Subjective Subjective diarrhea improved Objective Last 24 Hour Vital Signs Date Time Temp Pulse Resp B/P (MAP) Pulse Ox O2 Delivery O2 Flow Rate FiO2 04/19/17 16:32 97.8 19 122/58 Room Air 04/19/17 12:01 97.3 64 20 112/66 98 Room Air 04/19/17 10:30 97.3 71 16 112/74 100 Room Air 04/19/17 08:33 97.3 75 20 148/80 100 Room Air 04/19/17 08:09 70 148/80 04/19/17 08:09 70 148/80 04/19/17 04:48 97.2 04/18/17 21:25 71 123/72 04/18/17 20:00 97.2 71 20 123/72 96 Room Air Intake and Output 04/19/17 04/20/17 19:00 07:00 Intake Total 360 ml Balance 360 ml Intake Oral 360 ml Laboratory Tests Test 04/19/17 05:00 White Blood Count 5.8 K/UL (4.8-10.8) Red Blood Count 3.19 M/UL (4.70-6.10) L Hemoglobin 10.7 G/DL (14.2-18.0) L Hematocrit 31.7 % (42.0-52.0) L Mean Corpuscular Volume 99 FL (80-99) Mean Corpuscular Hemoglobin 33.4 PG (27.0-31.0) H Mean Corpuscular Hemoglobin Concent 33.6 G/DL (32.0-36.0) Red Cell Distribution Width 14.4 % (11.6-14.8) Platelet Count 114 K/UL (150-450) L Mean Platelet Volume 6.9 FL (6.5-10.1) Neutrophils (%) (Auto) 67.1 % (45.0-75.0) Lymphocytes (%) (Auto) 17.0 % (20.0-45.0) L Monocytes (%) (Auto) 11.7 % (1.0-10.0) H Eosinophils (%) (Auto) 3.1 % (0.0-3.0) H Basophils (%) (Auto) 1.0 % (0.0-2.0) Sodium Level 142 MMOL/L (136-145) Potassium Level 3.5 MMOL/L (3.5-5.1) Chloride Level 107 MMOL/L (98-107) Carbon Dioxide Level 25 MMOL/L (21-32) Anion Gap 10 mmol/L (5-15) Blood Urea Nitrogen 4 mg/dL (7-18) L Creatinine 1.2 MG/DL (0.55-1.30) Estimat Glomerular Filtration Rate mL/min (>60) Glucose Level 87 MG/DL (74-106) Calcium Level 8.7 MG/DL (8.5-10.1) Height (Feet): 6 Height (Inches): 1.00 Weight (Pounds): 197 General Appearance: WD/WN, no apparent distress, alert Cardiovascular: normal rate Respiratory/Chest: normal breath sounds, no respiratory distress Abdominal Exam: normal bowel sounds, non tender, soft Extremities: normal range of motion, non-tender Domenica Chanel N.PViv Apr 19, 2017 17:01
[2017-04-19] MEDS: Ertapenem 1 GM in NS 55 ML IVPB SCH (17:47)
[2017-04-19 20:00] VITALS: BP 120/87
[2017-04-19] MEDS: Atorvastatin 80mg tab ORAL SCH (20:29)
[2017-04-19] MEDS: Dyna-Hex 2% Top Sol 2oz TOPIC SCH (20:29)
[2017-04-19] MEDS: Nortriptyline 25mg cap ORAL SCH (20:30)
[2017-04-20] VITALS: BP 123/88
[2017-04-20] MEDS: D5 1/2NS 1,000 ML IV SCH ×2 (02:29→21:14)
[2017-04-20 04:00] VITALS: BP 136/74
[2017-04-20] MEDS: metroNIDAZOLE 500mg tab ORAL SCH ×3 (04:08→21:14)
[2017-04-20] MEDS: Loperamide 2mg cap ORAL SCH ×2 (05:21→14:00)
[2017-04-20 07:07] LABS: ANION GAP 8 mmol/L (5-15); CALCIUM 8.4 MG/DL (8.5-10.1); CARBON DIOXIDE 27 MMOL/L (21-32); CHLORIDE 108 MMOL/L (98-107); CREATININE 1.3 MG/DL (0.55-1.30); POTASSIUM 3.4 MMOL/L (3.5-5.1); SODIUM 143 MMOL/L (136-145)
[2017-04-20 07:12] LABS: BASOPHILS % (AUTO) 0.8 % (0.0-2.0); EOSINOPHILS % (AUTO) 2.4 % (0.0-3.0); LYMPHOCYTES % (AUTO) 14.2 % (20.0-45.0); MEAN CORPUSCULAR HEMOGLOBIN 33.3 PG (27.0-31.0); MEAN CORPUSCULAR HGB CONC 33.3 G/DL (32.0-36.0); MEAN CORPUSCULAR VOLUME 100 FL (80-99); MEAN PLATELET VOLUME 7.1 FL (6.5-10.1); MONOCYTES % (AUTO) 10.6 % (1.0-10.0); NEUTROPHILS % (AUTO) 72.1 % (45.0-75.0); PLATELET COUNT 128 K/UL (150-450); RED CELL DISTRIBUTION WIDTH 14.6 % (11.6-14.8); WHITE BLOOD COUNT 6.9 K/UL (4.8-10.8)
[2017-04-20 08:00] VITALS: BP 134/79
[2017-04-20] MEDS: Heparin 5000 units/ml inj SUBQ SCH ×2 (09:00→21:00)
[2017-04-20] MEDS: Tamsulosin 0.4mg cap ORAL SCH ×2 (09:44→18:52)
[2017-04-20] MEDS: Metoprolol 25mg tab ORAL SCH ×2 (09:46→21:17)
[2017-04-20] MEDS: Allopurinol 100mg Tab ORAL SCH (09:51)
[2017-04-20] MEDS: Dronabinol 2.5mg Cap ORAL SCH ×2 (10:08→18:53)
[2017-04-20] MEDS: Vancomycin oral 125mg/2.5ml ORAL SCH ×4 (10:09→21:16)
[2017-04-20] MEDS: Vitamin D 400 INTLU TAB ORAL SCH (10:09)
--- NOTE | 2017-04-20 10:14 | Infectious Diseases Prog Note ---
Assessment/Plan Assessment/Plan ASSESSMENT: The patient is a 76-year-old male with: Extended spectrum beta-lactamases E. coli urinary tract UTI Diarrhea due to recurrent C Diff improving History of recurrent Clostridium difficile.( recent +ve 03/29/17) Leukopenia. Afebrile. History of multiple myeloma on chemo. History of GI trach amyloidosis. History of appendicitis. History of intraabdominal abscess in 2014. Hypertension. Prostate cancer. TURP. CAD. CABG PLAN: Cont pt on oral vancomycin , Flagyl and Invanz day # Monitor CBC Monitor BMP Subjective Constitutional: Denies: no symptoms, fever, chills, fatigue, anorexia, drenching sweats, other Allergies: Coded Allergies: No Known Allergies (Unverified , 04/23/13) Subjective afebrile Objective Vital Signs Last 24 Hour Vital Signs Date Time Temp Pulse Resp B/P (MAP) Pulse Ox O2 Delivery O2 Flow Rate FiO2 04/20/17 09:48 77 133/81 04/20/17 09:46 77 133/81 04/20/17 08:00 97.9 78 18 134/79 100 Room Air 04/20/17 04:00 97.7 62 20 136/74 100 Room Air 04/20/17 00:00 97.7 82 21 123/88 100 Room Air 04/19/17 20:33 93 120/87 04/19/17 20:00 97.7 93 21 120/87 98 Room Air 04/19/17 16:32 97.8 19 122/58 Room Air 04/19/17 12:01 97.3 64 20 112/66 98 Room Air 04/19/17 10:30 97.3 71 16 112/74 100 Room Air Height (Feet): 6 Height (Inches): 1.00 Weight (Pounds): 197 HEENT: anicteric Respiratory/Chest: no respiratory distress Cardiovascular: regularly irregular Abdomen: no organomegaly Laboratory Tests Test 04/20/17 05:30 White Blood Count 6.9 K/UL (4.8-10.8) Red Blood Count 3.10 M/UL (4.70-6.10) L Hemoglobin 10.3 G/DL (14.2-18.0) L Hematocrit 31.0 % (42.0-52.0) L Mean Corpuscular Volume 100 FL (80-99) H Mean Corpuscular Hemoglobin 33.3 PG (27.0-31.0) H Mean Corpuscular Hemoglobin Concent 33.3 G/DL (32.0-36.0) Red Cell Distribution Width 14.6 % (11.6-14.8) Platelet Count 128 K/UL (150-450) L Mean Platelet Volume 7.1 FL (6.5-10.1) Neutrophils (%) (Auto) 72.1 % (45.0-75.0) Lymphocytes (%) (Auto) 14.2 % (20.0-45.0) L Monocytes (%) (Auto) 10.6 % (1.0-10.0) H Eosinophils (%) (Auto) 2.4 % (0.0-3.0) Basophils (%) (Auto) 0.8 % (0.0-2.0) Sodium Level 143 MMOL/L (136-145) Potassium Level 3.4 MMOL/L (3.5-5.1) L Chloride Level 108 MMOL/L (98-107) H Carbon Dioxide Level 27 MMOL/L (21-32) Anion Gap 8 mmol/L (5-15) Blood Urea Nitrogen 7 mg/dL (7-18) Creatinine 1.3 MG/DL (0.55-1.30) Estimat Glomerular Filtration Rate mL/min (>60) Glucose Level 93 MG/DL (74-106) Calcium Level 8.4 MG/DL (8.5-10.1) L Current Medications Medications (Trade) Dose Ordered Sig/Antionette Route PRN Reason Start Time Stop Time Status Last Admin Dose Admin Acetaminophen (Tylenol) 650 mg Q4H PRN ORAL fever 04/12/17 15:45 05/12/17 15:44 Al Hydroxide/Mg Hydroxide (Mylanta II) 30 ml Q6H PRN ORAL dyspepsia 04/12/17 15:45 05/12/17 15:44 Allopurinol (Zyloprim) 300 mg DAILY ORAL 04/13/17 09:00 05/13/17 08:59 04/20/17 09:51 Amlodipine Besylate (Norvasc) 5 mg DAILY ORAL 04/13/17 09:00 05/13/17 08:59 04/20/17 09:48 Atorvastatin Calcium (Lipitor) 80 mg QHS ORAL 04/12/17 21:00 05/12/17 20:59 04/19/17 20:29 Chlorhexidine Gluconate (Lisette-Hex 2%) 1 applic DAILY@2000 TOPIC 04/15/17 20:00 05/15/17 19:59 04/19/17 20:29 Dextrose (Dextrose 50%) STAT PRN IV Hypoglycemia 04/12/17 15:45 05/12/17 15:44 Dextrose/Sodium Chloride 1,000 ml @ 75 mls/hr [id number] IV 04/12/17 17:45 05/12/17 17:44 04/20/17 02:29 Diphenhydramine HCl (Benadryl) 25 mg Q6H PRN ORAL Itching/Pruritis 04/12/17 15:45 05/12/17 15:44 Diphenoxylate HCl/ Atropine (Lomotil) 2.5 mg Q4H PRN ORAL Diarrhea 04/12/17 16:15 05/12/17 16:14 04/14/17 14:52 Dronabinol (Marinol) 5 mg BID ORAL 04/12/17 18:00 05/12/17 17:59 04/20/17 10:08 Ertapenem 1 gm/ Sodium Chloride 55 ml @ 110 mls/hr Q24H IVPB 04/14/17 18:00 04/23/17 17:59 04/19/17 17:47 Finasteride (Proscar) 5 mg DAILY ORAL 04/13/17 09:00 05/13/17 08:59 04/20/17 09:49 Heparin Sodium (Porcine) (Heparin 5000 units/ml) 5,000 units EVERY 12 HOURS SUBQ 04/12/17 21:00 05/12/17 20:59 Loperamide HCl (Imodium) 2 mg Q8HR ORAL 04/16/17 09:00 05/16/17 08:59 04/20/17 05:21 Metoprolol Tartrate (Lopressor) 25 mg Q12HR ORAL 04/12/17 21:00 05/12/17 20:59 04/20/17 09:46 Metronidazole (Flagyl) 500 mg Q8H ORAL 04/14/17 20:00 04/21/17 19:59 04/20/17 04:08 Nitroglycerin (Ntg) 0.4 mg Q5M X 3 DOSES PRN SL Prn Chest Pain 04/12/17 15:45 05/12/17 15:44 Nortriptyline HCl (Pamelor) 25 mg QHS ORAL 04/12/17 21:00 05/12/17 20:59 04/19/17 20:30 Ondansetron HCl (Zofran) 4 mg Q6H PRN IVP Nausea & Vomiting 04/12/17 15:45 05/12/17 15:44 Pregabalin (Lyrica) 75 mg BIDPRN PRN ORAL NEUROPATHY 04/12/17 15:45 05/12/17 15:44 04/19/17 03:49 Promethazine HCl (Phenergan) 25 mg Q8H PRN IV refractory nausea 04/12/17 15:45 05/12/17 15:44 Ranitidine HCl (Zantac) 150 mg BEDTIME ORAL 04/13/17 21:00 05/13/17 20:59 04/19/17 20:30 Tamsulosin HCl (Flomax) 0.4 mg BID ORAL 04/12/17 18:00 05/12/17 17:59 04/20/17 09:44 Vancomycin HCl (Vancomycin) 250 mg FOUR TIMES A DAY ORAL 04/19/17 13:00 04/21/17 17:59 04/20/17 10:09 Vitamin D (Vitamin D) 800 intlu DAILY ORAL 04/20/17 09:00 05/20/17 08:59 04/20/17 10:09 SRIKANTH ANAND M.D. Apr 20, 2017 10:14
--- NOTE | 2017-04-20 10:36 | GI Progress Note ---
Assessment/Plan Problems: (1) Chemotherapy-induced diarrhea ICD Codes: K52.1 - Toxic gastroenteritis and colitis; T45.1X5A - Adverse effect of antineoplastic and immunosuppressive drugs, initial encounter SNOMED: 821643569, 898283061 (2) Clostridium difficile colitis ICD Codes: A04.7 - Enterocolitis due to Clostridium difficile SNOMED: 068650459 (3) Anemia ICD Codes: D64.9 - Anemia SNOMED: 919603993 (4) Clostridium difficile diarrhea ICD Codes: A04.72 - Enterocolitis due to Clostridium difficile, not specified as recurrent SNOMED: 0843536385749 (5) Amyloidosis ICD Codes: E85.9 - Amyloidosis, unspecified SNOMED: 81465971 Status: stable, unchanged Status Narrative Discussed with Dr. Flores. Assessment/Plan s/p EGD/colonoscopy 2015 >> amyloidosis stool culture normal folate/B12 WNL Vit D deficiency abdominal U/S unremarkable PICC in place on abx monitor H&H, prn transfusions low residual/fiber diet / lactose free diet IV hydration + electrolyte replacement lomotil prn H2B fu labs Vit D daily dc planning Subjective Subjective diarrhea improved Objective Last 24 Hour Vital Signs Date Time Temp Pulse Resp B/P (MAP) Pulse Ox O2 Delivery O2 Flow Rate FiO2 04/20/17 09:48 77 133/81 04/20/17 09:46 77 133/81 04/20/17 08:00 97.9 78 18 134/79 100 Room Air 04/20/17 04:00 97.7 62 20 136/74 100 Room Air 04/20/17 00:00 97.7 82 21 123/88 100 Room Air 04/19/17 20:33 93 120/87 04/19/17 20:00 97.7 93 21 120/87 98 Room Air 04/19/17 16:32 97.8 19 122/58 Room Air 04/19/17 12:01 97.3 64 20 112/66 98 Room Air Laboratory Tests Test 04/20/17 05:30 White Blood Count 6.9 K/UL (4.8-10.8) Red Blood Count 3.10 M/UL (4.70-6.10) L Hemoglobin 10.3 G/DL (14.2-18.0) L Hematocrit 31.0 % (42.0-52.0) L Mean Corpuscular Volume 100 FL (80-99) H Mean Corpuscular Hemoglobin 33.3 PG (27.0-31.0) H Mean Corpuscular Hemoglobin Concent 33.3 G/DL (32.0-36.0) Red Cell Distribution Width 14.6 % (11.6-14.8) Platelet Count 128 K/UL (150-450) L Mean Platelet Volume 7.1 FL (6.5-10.1) Neutrophils (%) (Auto) 72.1 % (45.0-75.0) Lymphocytes (%) (Auto) 14.2 % (20.0-45.0) L Monocytes (%) (Auto) 10.6 % (1.0-10.0) H Eosinophils (%) (Auto) 2.4 % (0.0-3.0) Basophils (%) (Auto) 0.8 % (0.0-2.0) Sodium Level 143 MMOL/L (136-145) Potassium Level 3.4 MMOL/L (3.5-5.1) L Chloride Level 108 MMOL/L (98-107) H Carbon Dioxide Level 27 MMOL/L (21-32) Anion Gap 8 mmol/L (5-15) Blood Urea Nitrogen 7 mg/dL (7-18) Creatinine 1.3 MG/DL (0.55-1.30) Estimat Glomerular Filtration Rate mL/min (>60) Glucose Level 93 MG/DL (74-106) Calcium Level 8.4 MG/DL (8.5-10.1) L Height (Feet): 6 Height (Inches): 1.00 Weight (Pounds): 197 General Appearance: WD/WN, no apparent distress, alert, other - slightly confused Cardiovascular: normal rate Respiratory/Chest: normal breath sounds, no respiratory distress Abdominal Exam: normal bowel sounds, non tender, soft Extremities: non-tender Domenica Chanel N.P. Apr 20, 2017 10:36
[2017-04-20] MEDS: Lyrica 75mg cap ORAL PRN (10:51)
--- NOTE | 2017-04-20 10:54 | Diagnostic Imaging Report ---
Indication: Slurred speech, unable to walk, altered metal status, history of pyelonephritis, myeloma Technique: sagittal T1 fast spin echo, axial T1 FLAIR, axial T2 FLAIR, axial T2 FS PROPELLER, axial T2* GRE, axial diffusion weighted images. ADC and exponential ADC maps generated Comparison: 07/14/2015 Findings:There is some image degradation due to motion artifact. No abnormal areas of restricted diffusion to suggest acute infarction. No acute hemorrhage or edema. No mass effect nor midline shift. There is age-related enlargement of the ventricles and extra axial CSF spaces. There is considerable periventricular deep white matter confluent low attenuation, most likely on the basis of chronic ischemic change. Similar findings are seen within the michelle and midbrain, unchanged. There is encephalomalacia of the left inferolateral cerebellar hemisphere, unchanged from the prior exam. The vascular flow voids are preserved. Again demonstrated is left maxillary sinus mucosal disease. Previously demonstrated right maxillary sinus disease has improved. Previously demonstrated on prior CT scan, medial wall left orbital defect is unchanged. No definite calvarial abnormality. The orbits are unremarkable. Impression: Chronic and age-related changes, as described, stable since 07/14/2015 Negative for acute intracranial bleed, mass effect, or infarct Old left cerebellar infarct, also previously described Sinus disease, slightly improved Findings previously discussed by phone with Dr. Arcos
--- NOTE | 2017-04-20 10:56 | Neurology Progress Note ---
Interim History Interim History ROS Limited/Unobtainable: Yes Objective Physical Exam Last Vital Signs Date Time Temp Pulse Resp B/P (MAP) Pulse Ox O2 Delivery O2 Flow Rate FiO2 04/20/17 09:48 77 133/81 04/20/17 08:00 97.9 18 100 Room Air Laboratory Tests Test 04/20/17 05:30 White Blood Count 6.9 K/UL (4.8-10.8) Red Blood Count 3.10 M/UL (4.70-6.10) L Hemoglobin 10.3 G/DL (14.2-18.0) L Hematocrit 31.0 % (42.0-52.0) L Mean Corpuscular Volume 100 FL (80-99) H Mean Corpuscular Hemoglobin 33.3 PG (27.0-31.0) H Mean Corpuscular Hemoglobin Concent 33.3 G/DL (32.0-36.0) Red Cell Distribution Width 14.6 % (11.6-14.8) Platelet Count 128 K/UL (150-450) L Mean Platelet Volume 7.1 FL (6.5-10.1) Neutrophils (%) (Auto) 72.1 % (45.0-75.0) Lymphocytes (%) (Auto) 14.2 % (20.0-45.0) L Monocytes (%) (Auto) 10.6 % (1.0-10.0) H Eosinophils (%) (Auto) 2.4 % (0.0-3.0) Basophils (%) (Auto) 0.8 % (0.0-2.0) Sodium Level 143 MMOL/L (136-145) Potassium Level 3.4 MMOL/L (3.5-5.1) L Chloride Level 108 MMOL/L (98-107) H Carbon Dioxide Level 27 MMOL/L (21-32) Anion Gap 8 mmol/L (5-15) Blood Urea Nitrogen 7 mg/dL (7-18) Creatinine 1.3 MG/DL (0.55-1.30) Estimat Glomerular Filtration Rate mL/min (>60) Glucose Level 93 MG/DL (74-106) Calcium Level 8.4 MG/DL (8.5-10.1) L Impression/Recommendations Problems: (1) toxic metabolic encephalopathy,multifactorial (2) C. difficile colitis (3) HTN (hypertension) (4) Multiple myeloma (5) CAD (coronary artery disease) (6) Prostate cancer (7) Chronic pain syndrome Status: stable, unchanged Recommendations #[id number] d/c unessential meds JOSE FRANCOIS Apr 20, 2017 10:56
[2017-04-20 12:38] VITALS: BP 132/85
[2017-04-20 16:00] VITALS: BP 127/68
--- NOTE | 2017-04-20 16:05 | Pulmonology Progress Note ---
Assessment/Plan Problems: (1) Sepsis (2) Multiple myeloma (3) UTI (urinary tract infection) (4) C. difficile colitis (5) Hypertension Assessment/Plan no new complains stating that can't walk need pt/ot still diarrhea 4 times ESBL in urine continue abx, switched to roal check cultures check electrolytes all notes and meds reviewed dc planning home with HH Subjective ROS Limited/Unobtainable: No Constitutional: Reports: no symptoms HEENT: Repors: no symptoms Respiratory: Reports: no symptoms Allergies: Coded Allergies: No Known Allergies (Unverified , 04/23/13) Objective Last 24 Hour Vital Signs Date Time Temp Pulse Resp B/P (MAP) Pulse Ox O2 Delivery O2 Flow Rate FiO2 04/20/17 12:38 97.9 74 14 132/85 100 Room Air 04/20/17 09:48 77 133/81 04/20/17 09:46 77 133/81 04/20/17 08:00 97.9 78 18 134/79 100 Room Air 04/20/17 04:00 97.7 62 20 136/74 100 Room Air 04/20/17 00:00 97.7 82 21 123/88 100 Room Air 04/19/17 20:33 93 120/87 04/19/17 20:00 97.7 93 21 120/87 98 Room Air 04/19/17 16:32 97.8 19 122/58 Room Air Objective General Appearance: WD/WN, no apparent distress Lines, tubes and drains: peripheral, HEENT: normocephalic, anicteric Neck: non-tender, normal alignment Respiratory/Chest: chest wall non-tender, lungs clear Cardiovascular/Chest: normal rate, regular rhythm Abdomen: non tender, soft Genitourinary/Rectal: normal genital exam, normal rectal exam Extremities: normal range of motion, non-pitting Laboratory Tests 04/20/17 05:30: White Blood Count 6.9, Red Blood Count 3.10L, Hemoglobin 10.3L, Hematocrit 31.0L , Mean Corpuscular Volume 100H, Mean Corpuscular Hemoglobin 33.3H, Mean Corpuscular Hemoglobin Concent 33.3, Red Cell Distribution Width 14.6, Platelet Count 128L, Mean Platelet Volume 7.1, Neutrophils (%) (Auto) 72.1, Lymphocytes ( %) (Auto) 14.2L, Monocytes (%) (Auto) 10.6H, Eosinophils (%) (Auto) 2.4, Basophils (%) (Auto) 0.8, Sodium Level 143, Potassium Level 3.4L, Chloride Level 108H, Carbon Dioxide Level 27, Anion Gap 8, Blood Urea Nitrogen 7, Creatinine 1.3, Estimat Glomerular Filtration Rate , Glucose Level 93, Calcium Level 8.4L Current Medications Medications (Trade) Dose Ordered Sig/[place] Route PRN Reason Start Time Stop Time Status Last Admin Dose Admin Acetaminophen (Tylenol) 650 mg Q4H PRN ORAL fever 04/12/17 15:45 05/12/17 15:44 Al Hydroxide/Mg Hydroxide (Mylanta II) 30 ml Q6H PRN ORAL dyspepsia 04/12/17 15:45 05/12/17 15:44 Allopurinol (Zyloprim) 300 mg DAILY ORAL 04/13/17 09:00 05/13/17 08:59 04/20/17 09:51 Amlodipine Besylate (Norvasc) 5 mg DAILY ORAL 04/13/17 09:00 05/13/17 08:59 04/20/17 09:48 Atorvastatin Calcium (Lipitor) 80 mg QHS ORAL 04/12/17 21:00 05/12/17 20:59 04/19/17 20:29 Chlorhexidine Gluconate (Lisette-Hex 2%) 1 applic DAILY@2000 TOPIC 04/15/17 20:00 05/15/17 19:59 04/19/17 20:29 Dextrose (Dextrose 50%) STAT PRN IV Hypoglycemia 04/12/17 15:45 05/12/17 15:44 Dextrose/Sodium Chloride 1,000 ml @ 75 mls/hr [id number] IV 04/12/17 17:45 05/12/17 17:44 04/20/17 02:29 Diphenoxylate HCl/ Atropine (Lomotil) 2.5 mg Q4H PRN ORAL Diarrhea 04/12/17 16:15 05/12/17 16:14 04/14/17 14:52 Dronabinol (Marinol) 5 mg BID ORAL 04/12/17 18:00 05/12/17 17:59 04/20/17 10:08 Ertapenem 1 gm/ Sodium Chloride 55 ml @ 110 mls/hr Q24H IVPB 04/14/17 18:00 04/27/17 23:59 04/19/17 17:47 Finasteride (Proscar) 5 mg DAILY ORAL 04/13/17 09:00 05/13/17 08:59 04/20/17 09:49 Heparin Sodium (Porcine) (Heparin 5000 units/ml) 5,000 units EVERY 12 HOURS SUBQ 04/12/17 21:00 05/12/17 20:59 Loperamide HCl (Imodium) 2 mg Q8HR ORAL 04/16/17 09:00 05/16/17 08:59 04/20/17 05:21 Metoprolol Tartrate (Lopressor) 25 mg Q12HR ORAL 04/12/17 21:00 05/12/17 20:59 04/20/17 09:46 Metronidazole (Flagyl) 500 mg Q8H ORAL 04/14/17 20:00 04/27/17 23:59 04/20/17 12:41 Nitroglycerin (Ntg) 0.4 mg Q5M X 3 DOSES PRN SL Prn Chest Pain 04/12/17 15:45 05/12/17 15:44 Ondansetron HCl (Zofran) 4 mg Q6H PRN IVP Nausea & Vomiting 04/12/17 15:45 05/12/17 15:44 Promethazine HCl (Phenergan) 25 mg Q8H PRN IV refractory nausea 04/12/17 15:45 05/12/17 15:44 Ranitidine HCl (Zantac) 150 mg BEDTIME ORAL 04/13/17 21:00 05/13/17 20:59 04/19/17 20:30 Tamsulosin HCl (Flomax) 0.4 mg BID ORAL 04/12/17 18:00 05/12/17 17:59 04/20/17 09:44 Vancomycin HCl (Vancomycin) 250 mg FOUR TIMES A DAY ORAL 04/19/17 13:00 04/27/17 23:59 04/20/17 12:42 Vitamin D (Vitamin D) 800 intlu DAILY ORAL 04/20/17 09:00 05/20/17 08:59 04/20/17 10:09 GOLDEN LIM Apr 20, 2017 16:05
[2017-04-20] MEDS ORDERED: Norco 5mg/325mg tab ORAL PRN (17:45)
--- NOTE | 2017-04-20 17:49 | General Progress Note ---
Progress Note Progress Note awake, alert, responsive, slur speech Jovani Villagomez MD Apr 20, 2017 17:49
--- NOTE | 2017-04-20 17:54 | Internal Med Progress Note ---
Subjective Physician Name Jovani Villagomez Attending Physician Jovani Villagomez MD Current Medications Medications (Trade) Dose Ordered Sig/Antionette Route PRN Reason Start Time Stop Time Status Last Admin Dose Admin Acetaminophen (Tylenol) 650 mg Q4H PRN ORAL fever 04/12/17 15:45 05/12/17 15:44 Al Hydroxide/Mg Hydroxide (Mylanta II) 30 ml Q6H PRN ORAL dyspepsia 04/12/17 15:45 05/12/17 15:44 Allopurinol (Zyloprim) 300 mg DAILY ORAL 04/13/17 09:00 05/13/17 08:59 04/20/17 09:51 Amlodipine Besylate (Norvasc) 5 mg DAILY ORAL 04/13/17 09:00 05/13/17 08:59 04/20/17 09:48 Atorvastatin Calcium (Lipitor) 80 mg QHS ORAL 04/12/17 21:00 05/12/17 20:59 04/19/17 20:29 Chlorhexidine Gluconate (Lisette-Hex 2%) 1 applic DAILY@2000 TOPIC 04/15/17 20:00 05/15/17 19:59 04/19/17 20:29 Dextrose (Dextrose 50%) STAT PRN IV Hypoglycemia 04/12/17 15:45 05/12/17 15:44 Dextrose/Sodium Chloride 1,000 ml @ 75 mls/hr [id number] IV 04/12/17 17:45 05/12/17 17:44 04/20/17 02:29 Diphenoxylate HCl/ Atropine (Lomotil) 2.5 mg Q4H PRN ORAL Diarrhea 04/12/17 16:15 05/12/17 16:14 04/14/17 14:52 Dronabinol (Marinol) 5 mg BID ORAL 04/12/17 18:00 05/12/17 17:59 04/20/17 10:08 Ertapenem 1 gm/ Sodium Chloride 55 ml @ 110 mls/hr Q24H IVPB 04/14/17 18:00 04/27/17 23:59 04/19/17 17:47 Finasteride (Proscar) 5 mg DAILY ORAL 04/13/17 09:00 05/13/17 08:59 04/20/17 09:49 Heparin Sodium (Porcine) (Heparin 5000 units/ml) 5,000 units EVERY 12 HOURS SUBQ 04/12/17 21:00 05/12/17 20:59 Loperamide HCl (Imodium) 2 mg Q8HR ORAL 04/16/17 09:00 05/16/17 08:59 04/20/17 05:21 Metoprolol Tartrate (Lopressor) 25 mg Q12HR ORAL 04/12/17 21:00 05/12/17 20:59 04/20/17 09:46 Metronidazole (Flagyl) 500 mg Q8H ORAL 04/14/17 20:00 04/27/17 23:59 04/20/17 12:41 Nitroglycerin (Ntg) 0.4 mg Q5M X 3 DOSES PRN SL Prn Chest Pain 04/12/17 15:45 05/12/17 15:44 Ondansetron HCl (Zofran) 4 mg Q6H PRN IVP Nausea & Vomiting 04/12/17 15:45 05/12/17 15:44 Promethazine HCl (Phenergan) 25 mg Q8H PRN IV refractory nausea 04/12/17 15:45 05/12/17 15:44 Ranitidine HCl (Zantac) 150 mg BEDTIME ORAL 04/13/17 21:00 05/13/17 20:59 04/19/17 20:30 Tamsulosin HCl (Flomax) 0.4 mg BID ORAL 04/12/17 18:00 05/12/17 17:59 04/20/17 09:44 Vancomycin HCl (Vancomycin) 250 mg FOUR TIMES A DAY ORAL 04/19/17 13:00 04/27/17 23:59 04/20/17 12:42 Vitamin D (Vitamin D) 800 intlu DAILY ORAL 04/20/17 09:00 05/20/17 08:59 04/20/17 10:09 Allergies: Coded Allergies: No Known Allergies (Unverified , 04/23/13) Subjective awake, alert, responsive, NAD, slur speech, loose BM Objective Last Vital Signs Date Time Temp Pulse Resp B/P (MAP) Pulse Ox O2 Delivery O2 Flow Rate FiO2 04/20/17 12:38 97.9 74 14 132/85 100 Room Air Laboratory Tests Test 04/20/17 05:30 White Blood Count 6.9 K/UL (4.8-10.8) Red Blood Count 3.10 M/UL (4.70-6.10) L Hemoglobin 10.3 G/DL (14.2-18.0) L Hematocrit 31.0 % (42.0-52.0) L Mean Corpuscular Volume 100 FL (80-99) H Mean Corpuscular Hemoglobin 33.3 PG (27.0-31.0) H Mean Corpuscular Hemoglobin Concent 33.3 G/DL (32.0-36.0) Red Cell Distribution Width 14.6 % (11.6-14.8) Platelet Count 128 K/UL (150-450) L Mean Platelet Volume 7.1 FL (6.5-10.1) Neutrophils (%) (Auto) 72.1 % (45.0-75.0) Lymphocytes (%) (Auto) 14.2 % (20.0-45.0) L Monocytes (%) (Auto) 10.6 % (1.0-10.0) H Eosinophils (%) (Auto) 2.4 % (0.0-3.0) Basophils (%) (Auto) 0.8 % (0.0-2.0) Sodium Level 143 MMOL/L (136-145) Potassium Level 3.4 MMOL/L (3.5-5.1) L Chloride Level 108 MMOL/L (98-107) H Carbon Dioxide Level 27 MMOL/L (21-32) Anion Gap 8 mmol/L (5-15) Blood Urea Nitrogen 7 mg/dL (7-18) Creatinine 1.3 MG/DL (0.55-1.30) Estimat Glomerular Filtration Rate mL/min (>60) Glucose Level 93 MG/DL (74-106) Calcium Level 8.4 MG/DL (8.5-10.1) L Objective General: No acute distress, awake and alert, slur speech. HEENT: NCAT, sclera anicteric, PERRL, EOMI. Neck: Supple, no significant jugular venous distention, Lungs: Good inspiratory effort, clear to auscultation bilaterally, no Wheeze or Rales. Heart: Regular rate and rhythm, normal S1/S2, no murmurs Abdomen: soft, nontender, nondistended. Normoactive bowel sounds. Extremities: No Cyanosis , clubbing or edema. RUE Piccline. Neuro: A&O x 3, Able to move all extremities Skin: warm, no rashes or lesions Psych: Normal mood and affect Assessment/Plan Assessment/Plan Extended spectrum beta-lactamases E. 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 History of recurrent C. diff colitis Multiple myeloma Under chemotherapy History of GI trach amyloidosis. History of appendicitis. History of intraabdominal abscess in 2014. Hypertension. Prostate cancer. TURP. CAD s/p CABG Slur speech most likely medication induced, Lyrica and amitriptyline PLAN: Abx: oral vancomycin, Flagyl and Invanz IV Monitor Labs Monitor blood culture On Imodium F/U with ID recommendation Discuss with family member at bedside MRI Brain: Chronic and age-related changes, as described, stable since 07/14/2015 Negative for acute intracranial bleed, mass effect, or infarct Old left cerebellar infarct, also previously described Sinus disease, slightly improved Jovani Villagomez MD Apr 20, 2017 17:54
[2017-04-20] MEDS: Ertapenem 1 GM in NS 55 ML IVPB SCH (18:50)
--- NOTE | 2017-04-20 19:15 | Consultation ---
DATE OF CONSULTATION: 04/20/2017 NEUROLOGICAL CONSULTATION DATE OF ADMISSION: 04/12/2017. REQUESTING PHYSICIAN: Jovani Villagomez M.D. HISTORY OF PRESENT ILLNESS: This 76 years old man seen in neurological consultation to evaluate new onset of changes in mental status. The patient has multiple chronic medical issues, currently being treated for C. diff colitis and UTI, noticed increasing changes in mental status in the last couple of days. This culminated yesterday with severe confusion, disorientation, and slurred speech. The patient on polypharmacy, Lyrica was put on hold. Today, the patient's status somewhat improved. MRI of the brain without contrast was obtained and this revealed no evidence of acute intracranial abnormalities. There was no difference from a previous study done in July 2016, signs of ischemic cerebrovascular disease noted on preliminary assessment. His current treatment list included IV fluids and antibiotics, allopurinol, amlodipine, Lipitor, Benadryl, Lomotil, Marinol, Proscar, subcutaneous heparin, Imodium, Ativan p.r.n., metoprolol, Flagyl, nitro, Pamelor 25 mg, Zofran p.r.n., Lyrica 75 mg b.i.d., Phenergan, Zantac, Flomax, Restoril, vancomycin, vitamin D, and temazepam. PAST MEDICAL HISTORY: The patient has a history of multiple myeloma maintained on chemotherapy, has prostate CA, history of GI tract amyloidosis, appendicitis, status post abdominal abscess in 2014, status post TURP, history of coronary artery disease status post CABG, most recent hospitalization two weeks ago for C. diff colitis. Following current admission, laboratory work included evidence of anemia with hemoglobin 10.8, hematocrit 32.4, and platelets 136,000. Coagulation panel was normal. Urinalysis with WBCs too numerous to count. Chemistry panel, chloride 109, bilirubin 1.2. Total protein 6.3. Low vitamin D of 20, but normal amylase and lipase. Vital signs in the last few days were stable. He is afebrile. Blood pressure 123/88, heart rate of 82. Abdominal ultrasound, no acute findings noted. PICC line was inserted. ALLERGIES: None reported. SOCIAL HISTORY: The patient lives in a nursing facility. Able to ambulate using his cane. He claims being able to go outside to do some shopping. Denies alcohol or drug abuse. Nonsmoker. REVIEW OF SYSTEMS: The patient indicates that he feels quite much better, but he did not feel "well" over the last few days due to weakness. He denies headache or dizziness. No chest pain or palpitations. No respiratory difficulties. No previous strokes or seizures. PHYSICAL EXAMINATION: GENERAL: A well-developed and well-nourished, somewhat ill-appearing man, not in acute distress, lying comfortably in bed. VITAL SIGNS: Now stable. Blood pressure 133/80. HEENT: Head: Normocephalic. There is no evidence of trauma. Eyes, ears, and throat are clear. NECK: Supple. No meningeal signs. MUSCULOSKELETAL: Remarkable for 2+ pitting edema in both lower extremities below knees. Peripheral pulses 1+ symmetric. MENTAL STATUS: The patient is alert and oriented to his name, age, place, and time. He is asking to be discharged home. His speech is fluent, but somewhat dysarthric, at times hard to understand. Follows commands properly. CRANIAL NERVES II: Pupils both responding to light and accommodation. Extraocular movement intact. No nystagmus. CRANIAL NERVES V: Normal corneal responses. CRANIAL NERVE VII: No fascial asymmetry. CRANIAL NERVES VIII: Normal hearing. CRANIAL NERVES IX THROUGH XII: Tongue in the midline. Symmetric palate elevation. MOTOR EXAMINATION: Able to lift arms and legs against the gravity. Reduced strength 4/5 in both lower extremities. Deep tendon reflexes depressed bilaterally. No pathological responses. SENSORY EXAMINATION: Withdrawing to pin upper and lower extremities. Gait not tested. IMPRESSION: This is a 76-year-old male with multiple medical issues, now presenting with: 1. Transient acute confusional state with dysarthria very likely multifactorial including polypharmacy in the setting of underlying infection. 2. Escherichia coli urinary tract infection. 3. Diarrhea, recurrent Clostridium difficile. 4. Multiple myeloma on chemotherapy. 5. History of gastrointestinal amyloidosis. 6. Hypertension. 7. Prostate carcinoma status post transurethral resection of prostate. 8. Coronary artery disease status post coronary artery bypass graft. 9. Malnutrition. DISCUSSION: The patient presents with transient changes in mental status lasting at least 24 hours. There is no evidence of lateralizing finding except mental status change and slurriness of speech. There is no evidence of seizure activity or TIA noted. We will recommend to review medications and discontinue unessential. We will hold Lyrica, Pamelor, and Benadryl. The patient meanwhile continue with IV fluids and antibiotics per attending. Add Ecotrin 81 mg daily. Avoid use of benzodiazepines. The patient to be observed for further changes in mental status in the following 24 hours. Get a PT/OT to start ambulation. Nam Ant Arcos DR: Bree JOB#: [id number] CC:
[2017-04-20 20:37] VITALS: BP 128/98
[2017-04-20] MEDS ORDERED: Nystatin Powder 100,000 units/gm 15gm TOPIC SCH (21:00)
[2017-04-20] MEDS: Atorvastatin 80mg tab ORAL SCH (21:14)
[2017-04-20] MEDS: Dyna-Hex 2% Top Sol 2oz TOPIC SCH (21:14)
[2017-04-20] MEDS: Nystatin Powder 100,000 units/gm 15gm TOPIC SCH (21:14)
[2017-04-21] VITALS: BP 126/85
[2017-04-21] MEDS: metroNIDAZOLE 500mg tab ORAL SCH ×3 (04:42→21:42)
[2017-04-21 06:24] LABS: BASOPHILS % (AUTO) 1.6 % (0.0-2.0); EOSINOPHILS % (AUTO) 2.5 % (0.0-3.0); LYMPHOCYTES % (AUTO) 14.8 % (20.0-45.0); MEAN CORPUSCULAR HEMOGLOBIN 32.9 PG (27.0-31.0); MEAN CORPUSCULAR VOLUME 100 FL (80-99); MEAN PLATELET VOLUME 6.9 FL (6.5-10.1); MONOCYTES % (AUTO) 10.3 % (1.0-10.0); NEUTROPHILS % (AUTO) 70.8 % (45.0-75.0); PLATELET COUNT 130 K/UL (150-450); RED BLOOD COUNT 3.19 M/UL (4.70-6.10); RED CELL DISTRIBUTION WIDTH 14.5 % (11.6-14.8); WHITE BLOOD COUNT 7.5 K/UL (4.8-10.8)
[2017-04-21 06:34] LABS: ANION GAP 9 mmol/L (5-15); CALCIUM 8.6 MG/DL (8.5-10.1); CARBON DIOXIDE 26 MMOL/L (21-32); CHLORIDE 107 MMOL/L (98-107); CREATININE 1.3 MG/DL (0.55-1.30); POTASSIUM 3.7 MMOL/L (3.5-5.1); SODIUM 142 MMOL/L (136-145)
[2017-04-21 06:36] LABS: MAGNESIUM 1.2 MG/DL (1.8-2.4); PHOSPHORUS 2.9 MG/DL (2.5-4.9)
[2017-04-21 08:15] VITALS: BP 149/89
[2017-04-21] MEDS: Allopurinol 100mg Tab ORAL SCH (08:45)
[2017-04-21] MEDS: Vitamin D 400 INTLU TAB ORAL SCH (08:45)
[2017-04-21] MEDS: Dronabinol 2.5mg Cap ORAL SCH ×2 (08:45→17:55)
[2017-04-21] MEDS: Metoprolol 25mg tab ORAL SCH ×2 (08:46→21:46)
[2017-04-21] MEDS: Vancomycin oral 125mg/2.5ml ORAL SCH ×4 (08:46→21:42)
[2017-04-21] MEDS: Tamsulosin 0.4mg cap ORAL SCH ×2 (08:46→17:56)
[2017-04-21] MEDS: Nystatin Powder 100,000 units/gm 15gm TOPIC SCH ×2 (08:48→17:56)
[2017-04-21] MEDS: Heparin 5000 units/ml inj SUBQ SCH ×2 (09:00→21:00)
--- NOTE | 2017-04-21 10:02 | Infectious Diseases Prog Note ---
Assessment/Plan Assessment/Plan ASSESSMENT: The patient is a 76-year-old male with: Extended spectrum beta-lactamases E. coli urinary tract UTI Diarrhea due to recurrent C Diff improving History of recurrent Clostridium difficile.( recent +ve 03/29/17) Leukopenia SP Afebrile. History of multiple myeloma on chemo. History of GI trach amyloidosis. History of appendicitis. History of intraabdominal abscess in 2014. Hypertension. Prostate cancer. TURP. CAD. CABG h/o CVA NKDA Full Code PLAN: Cont pt on oral vancomycin , Flagyl and Invanz day # Monitor CBC Monitor BMP Subjective Allergies: Coded Allergies: No Known Allergies (Unverified , 04/23/13) Subjective remains afebrile 2 documented BMs Objective Vital Signs Last 24 Hour Vital Signs Date Time Temp Pulse Resp B/P (MAP) Pulse Ox O2 Delivery O2 Flow Rate FiO2 04/21/17 08:46 86 149/89 04/21/17 08:46 86 149/89 04/21/17 08:15 98.4 86 22 149/89 97 Room Air 04/21/17 00:00 97.9 88 18 126/85 100 Room Air 04/20/17 21:17 93 128/98 04/20/17 20:37 98.4 93 18 128/98 100 Room Air 04/20/17 16:00 97.3 79 18 127/68 100 Room Air 04/20/17 12:38 97.9 74 14 132/85 100 Room Air Height (Feet): 6 Height (Inches): 1.00 Weight (Pounds): 197 General Appearance: no acute distress Respiratory/Chest: no respiratory distress Cardiovascular: normal rate, regular rhythm Abdomen: normal bowel sounds, soft, non tender, non distended Laboratory Tests Test 04/21/17 05:30 White Blood Count 7.5 K/UL (4.8-10.8) Red Blood Count 3.19 M/UL (4.70-6.10) L Hemoglobin 10.5 G/DL (14.2-18.0) L Hematocrit 31.8 % (42.0-52.0) L Mean Corpuscular Volume 100 FL (80-99) H Mean Corpuscular Hemoglobin 32.9 PG (27.0-31.0) H Mean Corpuscular Hemoglobin Concent 33.0 G/DL (32.0-36.0) Red Cell Distribution Width 14.5 % (11.6-14.8) Platelet Count 130 K/UL (150-450) L Mean Platelet Volume 6.9 FL (6.5-10.1) Neutrophils (%) (Auto) 70.8 % (45.0-75.0) Lymphocytes (%) (Auto) 14.8 % (20.0-45.0) L Monocytes (%) (Auto) 10.3 % (1.0-10.0) H Eosinophils (%) (Auto) 2.5 % (0.0-3.0) Basophils (%) (Auto) 1.6 % (0.0-2.0) Sodium Level 142 MMOL/L (136-145) Potassium Level 3.7 MMOL/L (3.5-5.1) Chloride Level 107 MMOL/L (98-107) Carbon Dioxide Level 26 MMOL/L (21-32) Anion Gap 9 mmol/L (5-15) Blood Urea Nitrogen 6 mg/dL (7-18) L Creatinine 1.3 MG/DL (0.55-1.30) Estimat Glomerular Filtration Rate mL/min (>60) Glucose Level 102 MG/DL (74-106) Calcium Level 8.6 MG/DL (8.5-10.1) Phosphorus Level 2.9 MG/DL (2.5-4.9) Magnesium Level 1.2 MG/DL (1.8-2.4) L Current Medications Medications (Trade) Dose Ordered Sig/Antionette Route PRN Reason Start Time Stop Time Status Last Admin Dose Admin Acetaminophen (Tylenol) 650 mg Q4H PRN ORAL fever 04/12/17 15:45 05/12/17 15:44 Acetaminophen/ Hydrocodone Bitart ([place] 5/325) 1 tab Q6H PRN ORAL For Pain 04/20/17 17:45 04/27/17 17:44 Al Hydroxide/Mg Hydroxide (Mylanta II) 30 ml Q6H PRN ORAL dyspepsia 04/12/17 15:45 05/12/17 15:44 Allopurinol (Zyloprim) 300 mg DAILY ORAL 04/13/17 09:00 05/13/17 08:59 04/21/17 08:45 Amlodipine Besylate (Norvasc) 5 mg DAILY ORAL 04/13/17 09:00 05/13/17 08:59 04/21/17 08:46 Atorvastatin Calcium (Lipitor) 80 mg QHS ORAL 04/12/17 21:00 05/12/17 20:59 04/20/17 21:14 Chlorhexidine Gluconate (Lisette-Hex 2%) 1 applic DAILY@2000 TOPIC 04/15/17 20:00 05/15/17 19:59 04/20/17 21:14 Dextrose (Dextrose 50%) STAT PRN IV Hypoglycemia 04/12/17 15:45 05/12/17 15:44 Dextrose/Sodium Chloride 1,000 ml @ 75 mls/hr [id number] IV 04/12/17 17:45 05/12/17 17:44 04/20/17 21:14 Diphenoxylate HCl/ Atropine (Lomotil) 2.5 mg Q4H PRN ORAL Diarrhea 04/12/17 16:15 05/12/17 16:14 04/14/17 14:52 Dronabinol (Marinol) 5 mg BID ORAL 04/12/17 18:00 05/12/17 17:59 04/21/17 08:45 Ertapenem 1 gm/ Sodium Chloride 55 ml @ 110 mls/hr Q24H IVPB 04/14/17 18:00 04/27/17 23:59 04/20/17 18:50 Finasteride (Proscar) 5 mg DAILY ORAL 04/13/17 09:00 05/13/17 08:59 04/21/17 08:46 Heparin Sodium (Porcine) (Heparin 5000 units/ml) 5,000 units EVERY 12 HOURS SUBQ 04/12/17 21:00 05/12/17 20:59 Magnesium Oxide (Mag-Ox 400mg) 400 mg THREE TIMES A DAY ORAL 04/21/17 13:00 05/21/17 12:59 Magnesium Sulfate 100 ml @ 100 mls/hr Q1H IVPB 04/21/17 09:00 04/21/17 11:59 04/21/17 08:44 Metoprolol Tartrate (Lopressor) 25 mg Q12HR ORAL 04/12/17 21:00 05/12/17 20:59 04/21/17 08:46 Metronidazole (Flagyl) 500 mg Q8H ORAL 04/14/17 20:00 11/22/17 23:59 04/21/17 04:42 Nitroglycerin (Ntg) 0.4 mg Q5M X 3 DOSES PRN SL Prn Chest Pain 04/12/17 15:45 05/12/17 15:44 Nystatin (Nystop Powder) 1 applic BID TOPIC 04/20/17 21:00 05/20/17 20:59 04/21/17 08:48 Ondansetron HCl (Zofran) 4 mg Q6H PRN IVP Nausea & Vomiting 04/12/17 15:45 05/12/17 15:44 Promethazine HCl (Phenergan) 25 mg Q8H PRN IV refractory nausea 04/12/17 15:45 05/12/17 15:44 Ranitidine HCl (Zantac) 150 mg BEDTIME ORAL 04/13/17 21:00 05/13/17 20:59 04/20/17 21:14 Tamsulosin HCl (Flomax) 0.4 mg BID ORAL 04/12/17 18:00 05/12/17 17:59 04/21/17 08:46 Vancomycin HCl (Vancomycin) 250 mg FOUR TIMES A DAY ORAL 04/19/17 13:00 04/27/17 23:59 04/21/17 08:46 Vitamin D (Vitamin D) 800 intlu DAILY ORAL 04/20/17 09:00 05/20/17 08:59 04/21/17 08:45 MADELEINE GARCIA Apr 21, 2017 10:02
[2017-04-21] MEDS: D5 1/2NS 1,000 ML IV SCH (11:08)
--- NOTE | 2017-04-21 11:20 | GI Progress Note ---
Assessment/Plan Problems: (1) Chemotherapy-induced diarrhea ICD Codes: K52.1 - Toxic gastroenteritis and colitis; T45.1X5A - Adverse effect of antineoplastic and immunosuppressive drugs, initial encounter SNOMED: 422900310, 125066437 (2) Clostridium difficile colitis ICD Codes: A04.7 - Enterocolitis due to Clostridium difficile SNOMED: 950846777 (3) Anemia ICD Codes: D64.9 - Anemia SNOMED: 662548286 (4) Clostridium difficile diarrhea ICD Codes: A04.72 - Enterocolitis due to Clostridium difficile, not specified as recurrent SNOMED: 0018454206340 (5) Amyloidosis ICD Codes: E85.9 - Amyloidosis, unspecified SNOMED: 54228436 Status: stable, unchanged Status Narrative Discussed with Dr. Flores. Assessment/Plan s/p EGD/colonoscopy 2015 >> amyloidosis stool culture normal folate/B12 WNL Vit D deficiency abdominal U/S unremarkable PICC in place on abx monitor H&H, prn transfusions low residual/fiber diet / lactose free diet IV hydration + electrolyte replacement lomotil prn H2B fu labs Vit D daily dc planning Subjective Subjective diarrhea resolved Objective Last 24 Hour Vital Signs Date Time Temp Pulse Resp B/P (MAP) Pulse Ox O2 Delivery O2 Flow Rate FiO2 04/21/17 08:46 86 149/89 04/21/17 08:46 86 149/89 04/21/17 08:15 98.4 86 22 149/89 97 Room Air 04/21/17 00:00 97.9 88 18 126/85 100 Room Air 04/20/17 21:17 93 128/98 04/20/17 20:37 98.4 93 18 128/98 100 Room Air 04/20/17 16:00 97.3 79 18 127/68 100 Room Air 04/20/17 12:38 97.9 74 14 132/85 100 Room Air Laboratory Tests Test 04/21/17 05:30 White Blood Count 7.5 K/UL (4.8-10.8) Red Blood Count 3.19 M/UL (4.70-6.10) L Hemoglobin 10.5 G/DL (14.2-18.0) L Hematocrit 31.8 % (42.0-52.0) L Mean Corpuscular Volume 100 FL (80-99) H Mean Corpuscular Hemoglobin 32.9 PG (27.0-31.0) H Mean Corpuscular Hemoglobin Concent 33.0 G/DL (32.0-36.0) Red Cell Distribution Width 14.5 % (11.6-14.8) Platelet Count 130 K/UL (150-450) L Mean Platelet Volume 6.9 FL (6.5-10.1) Neutrophils (%) (Auto) 70.8 % (45.0-75.0) Lymphocytes (%) (Auto) 14.8 % (20.0-45.0) L Monocytes (%) (Auto) 10.3 % (1.0-10.0) H Eosinophils (%) (Auto) 2.5 % (0.0-3.0) Basophils (%) (Auto) 1.6 % (0.0-2.0) Sodium Level 142 MMOL/L (136-145) Potassium Level 3.7 MMOL/L (3.5-5.1) Chloride Level 107 MMOL/L (98-107) Carbon Dioxide Level 26 MMOL/L (21-32) Anion Gap 9 mmol/L (5-15) Blood Urea Nitrogen 6 mg/dL (7-18) L Creatinine 1.3 MG/DL (0.55-1.30) Estimat Glomerular Filtration Rate mL/min (>60) Glucose Level 102 MG/DL (74-106) Calcium Level 8.6 MG/DL (8.5-10.1) Phosphorus Level 2.9 MG/DL (2.5-4.9) Magnesium Level 1.2 MG/DL (1.8-2.4) L Height (Feet): 6 Height (Inches): 1.00 Weight (Pounds): 197 General Appearance: WD/WN, no apparent distress, alert Cardiovascular: normal rate Respiratory/Chest: normal breath sounds, no respiratory distress Abdominal Exam: normal bowel sounds, non tender, soft Extremities: normal range of motion, non-tender Domenica Chanel N.PViv Apr 21, 2017 11:20
[2017-04-21 12:15] VITALS: BP 140/89
[2017-04-21] MEDS: Magnesium Oxide 400mg tab ORAL SCH ×2 (15:07→17:58)
[2017-04-21 16:00] VITALS: BP 140/86
--- NOTE | 2017-04-21 17:56 | Pulmonology Progress Note ---
Assessment/Plan Problems: (1) Sepsis (2) Multiple myeloma (3) UTI (urinary tract infection) (4) C. difficile colitis (5) Hypertension Assessment/Plan pt had slurred speech, that resolved by now stating that can't walk need pt/ot I added methadone for pain control and control of diarrhea. still diarrhea 4 times ESBL in urine continue abx, switched to roal check cultures check electrolytes all notes and meds reviewed dc planning home with HH Subjective ROS Limited/Unobtainable: No Interval Events: pt stated that he had 6 bm today, the nurse can't verify it. Allergies: Coded Allergies: No Known Allergies (Unverified , 04/23/13) Objective Last 24 Hour Vital Signs Date Time Temp Pulse Resp B/P (MAP) Pulse Ox O2 Delivery O2 Flow Rate FiO2 04/21/17 16:00 98.0 84 18 140/86 96 Room Air 04/21/17 12:15 97.9 86 23 140/89 99 Room Air 04/21/17 08:46 86 149/89 04/21/17 08:46 86 149/89 04/21/17 08:15 98.4 86 22 149/89 97 Room Air 04/21/17 00:00 97.9 88 18 126/85 100 Room Air 04/20/17 21:17 93 128/98 04/20/17 20:37 98.4 93 18 128/98 100 Room Air Objective General Appearance: WD/WN, no apparent distress Lines, tubes and drains: peripheral, HEENT: normocephalic, anicteric Neck: non-tender, normal alignment Respiratory/Chest: chest wall non-tender, lungs clear Cardiovascular/Chest: normal rate, regular rhythm Abdomen: non tender, soft Genitourinary/Rectal: normal genital exam, normal rectal exam Extremities: normal range of motion, non-pitting Laboratory Tests 04/21/17 05:30: White Blood Count 7.5, Red Blood Count 3.19L, Hemoglobin 10.5L, Hematocrit 31.8L , Mean Corpuscular Volume 100H, Mean Corpuscular Hemoglobin 32.9H, Mean Corpuscular Hemoglobin Concent 33.0, Red Cell Distribution Width 14.5, Platelet Count 130L, Mean Platelet Volume 6.9, Neutrophils (%) (Auto) 70.8, Lymphocytes ( %) (Auto) 14.8L, Monocytes (%) (Auto) 10.3H, Eosinophils (%) (Auto) 2.5, Basophils (%) (Auto) 1.6, Sodium Level 142, Potassium Level 3.7, Chloride Level 107, Carbon Dioxide Level 26, Anion Gap 9, Blood Urea Nitrogen 6L, Creatinine 1.3, Estimat Glomerular Filtration Rate , Glucose Level 102, Calcium Level 8.6, Phosphorus Level 2.9, Magnesium Level 1.2L Current Medications Medications (Trade) Dose Ordered Sig/Antionette Route PRN Reason Start Time Stop Time Status Last Admin Dose Admin Acetaminophen (Tylenol) 650 mg Q4H PRN ORAL fever 04/12/17 15:45 05/12/17 15:44 Acetaminophen/ Hydrocodone Bitart ([place] 5/325) 1 tab Q6H PRN ORAL For Pain 04/20/17 17:45 04/27/17 17:44 Al Hydroxide/Mg Hydroxide (Mylanta II) 30 ml Q6H PRN ORAL dyspepsia 04/12/17 15:45 05/12/17 15:44 Allopurinol (Zyloprim) 300 mg DAILY ORAL 04/13/17 09:00 05/13/17 08:59 04/21/17 08:45 Amlodipine Besylate (Norvasc) 5 mg DAILY ORAL 04/13/17 09:00 05/13/17 08:59 04/21/17 08:46 Atorvastatin Calcium (Lipitor) 80 mg QHS ORAL 04/12/17 21:00 05/12/17 20:59 04/20/17 21:14 Chlorhexidine Gluconate (Lisette-Hex 2%) 1 applic DAILY@2000 TOPIC 04/15/17 20:00 05/15/17 19:59 04/20/17 21:14 Dextrose (Dextrose 50%) STAT PRN IV Hypoglycemia 04/12/17 15:45 05/12/17 15:44 Dextrose/Sodium Chloride 1,000 ml @ 75 mls/hr [id number] IV 04/12/17 17:45 05/12/17 17:44 04/21/17 11:08 Diphenoxylate HCl/ Atropine (Lomotil) 2.5 mg Q4H PRN ORAL Diarrhea 04/12/17 16:15 05/12/17 16:14 04/14/17 14:52 Dronabinol (Marinol) 5 mg BID ORAL 04/12/17 18:00 05/12/17 17:59 04/21/17 08:45 Ertapenem 1 gm/ Sodium Chloride 55 ml @ 110 mls/hr Q24H IVPB 04/14/17 18:00 04/27/17 23:59 04/20/17 18:50 Finasteride (Proscar) 5 mg DAILY ORAL 04/13/17 09:00 05/13/17 08:59 04/21/17 08:46 Heparin Sodium (Porcine) (Heparin 5000 units/ml) 5,000 units EVERY 12 HOURS SUBQ 04/12/17 21:00 05/12/17 20:59 Magnesium Oxide (Mag-Ox 400mg) 400 mg THREE TIMES A DAY ORAL 04/21/17 13:00 05/21/17 12:59 04/21/17 15:07 Metoprolol Tartrate (Lopressor) 25 mg Q12HR ORAL 04/12/17 21:00 05/12/17 20:59 04/21/17 08:46 Metronidazole (Flagyl) 500 mg Q8H ORAL 04/14/17 20:00 04/27/17 23:59 04/21/17 14:02 Nitroglycerin (Ntg) 0.4 mg Q5M X 3 DOSES PRN SL Prn Chest Pain 04/12/17 15:45 05/12/17 15:44 Nystatin (Nystop Powder) 1 applic BID TOPIC 04/20/17 21:00 05/20/17 20:59 04/21/17 08:48 Ondansetron HCl (Zofran) 4 mg Q6H PRN IVP Nausea & Vomiting 04/12/17 15:45 05/12/17 15:44 Promethazine HCl (Phenergan) 25 mg Q8H PRN IV refractory nausea 04/12/17 15:45 05/12/17 15:44 Ranitidine HCl (Zantac) 150 mg BEDTIME ORAL 04/13/17 21:00 05/13/17 20:59 04/20/17 21:14 Tamsulosin HCl (Flomax) 0.4 mg BID ORAL 04/12/17 18:00 05/12/17 17:59 04/21/17 08:46 Vancomycin HCl (Vancomycin) 250 mg FOUR TIMES A DAY ORAL 04/19/17 13:00 04/27/17 23:59 04/21/17 14:02 Vitamin D (Vitamin D) 800 intlu DAILY ORAL 04/20/17 09:00 05/20/17 08:59 04/21/17 08:45 GOLDEN LIM Apr 21, 2017 17:56
[2017-04-21] MEDS: Ertapenem 1 GM in NS 55 ML IVPB SCH (17:58)
[2017-04-21 20:00] VITALS: BP 131/72
--- NOTE | 2017-04-21 21:31 | Internal Med Progress Note ---
Subjective Physician Name Jovani Villagomez Attending Physician Jovani Villagomez MD Current Medications Medications (Trade) Dose Ordered Sig/Antionette Route PRN Reason Start Time Stop Time Status Last Admin Dose Admin Acetaminophen (Tylenol) 650 mg Q4H PRN ORAL fever 04/12/17 15:45 05/12/17 15:44 Acetaminophen/ Hydrocodone Bitart ([place] 5/325) 1 tab Q6H PRN ORAL For Pain 04/20/17 17:45 04/27/17 17:44 Al Hydroxide/Mg Hydroxide (Mylanta II) 30 ml Q6H PRN ORAL dyspepsia 04/12/17 15:45 05/12/17 15:44 Allopurinol (Zyloprim) 300 mg DAILY ORAL 04/13/17 09:00 05/13/17 08:59 04/21/17 08:45 Amlodipine Besylate (Norvasc) 5 mg DAILY ORAL 04/13/17 09:00 05/13/17 08:59 04/21/17 08:46 Atorvastatin Calcium (Lipitor) 80 mg QHS ORAL 04/12/17 21:00 05/12/17 20:59 04/20/17 21:14 Chlorhexidine Gluconate (Lisette-Hex 2%) 1 applic DAILY@2000 TOPIC 04/15/17 20:00 05/15/17 19:59 04/20/17 21:14 Dextrose (Dextrose 50%) STAT PRN IV Hypoglycemia 04/12/17 15:45 05/12/17 15:44 Dextrose/Sodium Chloride 1,000 ml @ 75 mls/hr [id number] IV 04/12/17 17:45 05/12/17 17:44 04/21/17 11:08 Diphenoxylate HCl/ Atropine (Lomotil) 2.5 mg Q4H PRN ORAL Diarrhea 04/12/17 16:15 05/12/17 16:14 04/14/17 14:52 Dronabinol (Marinol) 5 mg BID ORAL 04/12/17 18:00 05/12/17 17:59 04/21/17 17:55 Ertapenem 1 gm/ Sodium Chloride 55 ml @ 110 mls/hr Q24H IVPB 04/14/17 18:00 04/27/17 23:59 04/21/17 17:58 Finasteride (Proscar) 5 mg DAILY ORAL 04/13/17 09:00 05/13/17 08:59 04/21/17 08:46 Heparin Sodium (Porcine) (Heparin 5000 units/ml) 5,000 units EVERY 12 HOURS SUBQ 04/12/17 21:00 05/12/17 20:59 Magnesium Oxide (Mag-Ox 400mg) 400 mg THREE TIMES A DAY ORAL 04/21/17 13:00 05/21/17 12:59 04/21/17 17:58 Metoprolol Tartrate (Lopressor) 25 mg Q12HR ORAL 04/12/17 21:00 05/12/17 20:59 04/21/17 08:46 Metronidazole (Flagyl) 500 mg Q8H ORAL 04/14/17 20:00 04/27/17 23:59 04/21/17 14:02 Nitroglycerin (Ntg) 0.4 mg Q5M X 3 DOSES PRN SL Prn Chest Pain 04/12/17 15:45 05/12/17 15:44 Nystatin (Nystop Powder) 1 applic BID TOPIC 04/20/17 21:00 05/20/17 20:59 04/21/17 17:56 Ondansetron HCl (Zofran) 4 mg Q6H PRN IVP Nausea & Vomiting 04/12/17 15:45 05/12/17 15:44 Promethazine HCl (Phenergan) 25 mg Q8H PRN IV refractory nausea 04/12/17 15:45 05/12/17 15:44 Ranitidine HCl (Zantac) 150 mg BEDTIME ORAL 04/13/17 21:00 05/13/17 20:59 04/20/17 21:14 Tamsulosin HCl (Flomax) 0.4 mg BID ORAL 04/12/17 18:00 05/12/17 17:59 04/21/17 17:56 Vancomycin HCl (Vancomycin) 250 mg FOUR TIMES A DAY ORAL 04/19/17 13:00 04/27/17 23:59 04/21/17 17:55 Vitamin D (Vitamin D) 800 intlu DAILY ORAL 04/20/17 09:00 05/20/17 08:59 04/21/17 08:45 Allergies: Coded Allergies: No Known Allergies (Unverified , 04/23/13) Subjective awake, alert, responsive, NAD, speech better. Objective Last Vital Signs Date Time Temp Pulse Resp B/P (MAP) Pulse Ox O2 Delivery O2 Flow Rate FiO2 04/21/17 16:00 98.0 84 18 140/86 96 Room Air Laboratory Tests Test 04/21/17 05:30 White Blood Count 7.5 K/UL (4.8-10.8) Red Blood Count 3.19 M/UL (4.70-6.10) L Hemoglobin 10.5 G/DL (14.2-18.0) L Hematocrit 31.8 % (42.0-52.0) L Mean Corpuscular Volume 100 FL (80-99) H Mean Corpuscular Hemoglobin 32.9 PG (27.0-31.0) H Mean Corpuscular Hemoglobin Concent 33.0 G/DL (32.0-36.0) Red Cell Distribution Width 14.5 % (11.6-14.8) Platelet Count 130 K/UL (150-450) L Mean Platelet Volume 6.9 FL (6.5-10.1) Neutrophils (%) (Auto) 70.8 % (45.0-75.0) Lymphocytes (%) (Auto) 14.8 % (20.0-45.0) L Monocytes (%) (Auto) 10.3 % (1.0-10.0) H Eosinophils (%) (Auto) 2.5 % (0.0-3.0) Basophils (%) (Auto) 1.6 % (0.0-2.0) Sodium Level 142 MMOL/L (136-145) Potassium Level 3.7 MMOL/L (3.5-5.1) Chloride Level 107 MMOL/L (98-107) Carbon Dioxide Level 26 MMOL/L (21-32) Anion Gap 9 mmol/L (5-15) Blood Urea Nitrogen 6 mg/dL (7-18) L Creatinine 1.3 MG/DL (0.55-1.30) Estimat Glomerular Filtration Rate mL/min (>60) Glucose Level 102 MG/DL (74-106) Calcium Level 8.6 MG/DL (8.5-10.1) Phosphorus Level 2.9 MG/DL (2.5-4.9) Magnesium Level 1.2 MG/DL (1.8-2.4) L Intake and Output 04/21/17 04/22/17 19:00 07:00 Intake Total 980 ml Balance 980 ml Intake Oral 400 ml IV Total 580 ml # Voids 6 Objective General: No acute distress, awake and alert, slur speech. HEENT: NCAT, sclera anicteric, PERRL, EOMI. Neck: Supple, no significant jugular venous distention, Lungs: Good inspiratory effort, clear to auscultation bilaterally, no Wheeze or Rales. Heart: Regular rate and rhythm, normal S1/S2, no murmurs Abdomen: soft, nontender, nondistended. Normoactive bowel sounds. Extremities: No Cyanosis , clubbing or edema. RUE Piccline. Neuro: A&O x 3, Able to move all extremities Skin: warm, no rashes or lesions Psych: Normal mood and affect Assessment/Plan Assessment/Plan Extended spectrum beta-lactamases E. 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 History of recurrent C. diff colitis Multiple myeloma Under chemotherapy History of GI trach amyloidosis. History of appendicitis. History of intraabdominal abscess in 2014. Hypertension. Prostate cancer. TURP. CAD s/p CABG Slur speech most likely medication induced, Lyrica and amitriptyline PLAN: Abx: oral vancomycin, Flagyl and Invanz IV Monitor Labs Monitor blood culture On Imodium PRN F/U with ID recommendation MG IV DC planning in AM. MRI Brain: Chronic and age-related changes, as described, stable since 07/14/2015 Negative for acute intracranial bleed, mass effect, or infarct Old left cerebellar infarct, also previously described Sinus disease, slightly improved Jovani Villagomez MD Apr 21, 2017 21:31
[2017-04-21] MEDS: Atorvastatin 80mg tab ORAL SCH (21:41)
[2017-04-21] MEDS: Dyna-Hex 2% Top Sol 2oz TOPIC SCH (21:41)
[2017-04-22] VITALS: BP 133/74
[2017-04-22 04:00] VITALS: BP 137/69
[2017-04-22] MEDS: metroNIDAZOLE 500mg tab ORAL SCH ×3 (04:33→20:55)
[2017-04-22] MEDS: D5 1/2NS 1,000 ML IV SCH ×2 (04:33→17:08)
[2017-04-22 07:17] LABS: BASOPHILS % (AUTO) 1.5 % (0.0-2.0); EOSINOPHILS % (AUTO) 1.9 % (0.0-3.0); LYMPHOCYTES % (AUTO) 13.3 % (20.0-45.0); MEAN CORPUSCULAR HEMOGLOBIN 32.4 PG (27.0-31.0); MEAN CORPUSCULAR HGB CONC 32.4 G/DL (32.0-36.0); MEAN CORPUSCULAR VOLUME 100 FL (80-99); MEAN PLATELET VOLUME 7.8 FL (6.5-10.1); MONOCYTES % (AUTO) 10.2 % (1.0-10.0); PLATELET COUNT 131 K/UL (150-450); RED BLOOD COUNT 3.02 M/UL (4.70-6.10); RED CELL DISTRIBUTION WIDTH 14.6 % (11.6-14.8); WHITE BLOOD COUNT 7.3 K/UL (4.8-10.8)
[2017-04-22 07:23] LABS: ANION GAP 11 mmol/L (5-15); CALCIUM 8.8 MG/DL (8.5-10.1); CARBON DIOXIDE 25 MMOL/L (21-32); CHLORIDE 107 MMOL/L (98-107); CREATININE 1.3 MG/DL (0.55-1.30); MAGNESIUM 1.8 MG/DL (1.8-2.4); POTASSIUM 3.4 MMOL/L (3.5-5.1); SODIUM 143 MMOL/L (136-145)
--- NOTE | 2017-04-22 07:51 | Pulmonology Progress Note ---
Assessment/Plan Assessment/Plan ASSESSMENT UTI/E coli ESBL C dif colitis with hx of recurrent C dif colitis leukopenia-resolved ( likely due to chemo) MM, under chemo HTN CAD, s/p CABG anemia of chronic disease prostate Ca vit D deficiency acute toxic metabolic encephalopathy(multifactorial) Hx of CVA e/lyte imbalance (hypo K, hypo Mg) GI amyloidosis PLAN OF CARE MS floor abx ID follows IVF Lomotil prn BP management with CCB and BB continue statin and ASA GI follows monitor HH, transfuse prn stool cx negative low residue diet, lactose free GI prophayxlsi vit D replacement abdominal US unremarkable MRI brain with evidence of old CVA no acute changes dc Marinol, possibly contributing to anxiety and change in mental status get sitter monitor lytes and replace as needed , Mg stable after replacement, give additional KCL DVT prophylaxis PT/OT continue Flomax and Proscar case discussed and evaluated by supervising physician Subjective Allergies: Coded Allergies: No Known Allergies (Unverified , 04/23/13) Subjective denies chest pain, SOB, abdominal pain afebrile, no leukocytosis Objective Last 24 Hour Vital Signs Date Time Temp Pulse Resp B/P (MAP) Pulse Ox O2 Delivery O2 Flow Rate FiO2 04/22/17 04:00 97.8 79 18 137/69 96 Room Air 04/22/17 00:00 98.0 84 18 133/74 99 Room Air 04/21/17 21:46 83 131/72 04/21/17 20:00 98.2 83 18 131/72 100 Room Air 04/21/17 16:00 98.0 84 18 140/86 96 Room Air 04/21/17 12:15 97.9 86 23 140/89 99 Room Air 04/21/17 08:46 86 149/89 04/21/17 08:46 86 149/89 04/21/17 08:15 98.4 86 22 149/89 97 Room Air General Appearance: no acute distress HEENT: normocephalic, atraumatic Respiratory/Chest: lungs clear, no respiratory distress, no accessory muscle use Cardiovascular: normal rate, no JVD, other - PICC intact Abdomen: normal bowel sounds, soft, non tender Extremities: no edema Neurologic/Psychiatric: abnormal gait, alert, responsive Musculoskeletal: atrophy - BLE Laboratory Tests 04/22/17 06:00: White Blood Count 7.3, Red Blood Count 3.02L, Hemoglobin 9.8L, Hematocrit 30.2L , Mean Corpuscular Volume 100H, Mean Corpuscular Hemoglobin 32.4H, Mean Corpuscular Hemoglobin Concent 32.4, Red Cell Distribution Width 14.6, Platelet Count 131L, Mean Platelet Volume 7.8, Neutrophils (%) (Auto) 73.0, Lymphocytes ( %) (Auto) 13.3L, Monocytes (%) (Auto) 10.2H, Eosinophils (%) (Auto) 1.9, Basophils (%) (Auto) 1.5, Sodium Level 143, Potassium Level 3.4L, Chloride Level 107, Carbon Dioxide Level 25, Anion Gap 11, Blood Urea Nitrogen 5L, Creatinine 1.3, Estimat Glomerular Filtration Rate , Glucose Level 83, Calcium Level 8.8, Magnesium Level 1.8 Current Medications Medications (Trade) Dose Ordered Sig/Antionette Route PRN Reason Start Time Stop Time Status Last Admin Dose Admin Acetaminophen (Tylenol) 650 mg Q4H PRN ORAL fever 04/12/17 15:45 05/12/17 15:44 Acetaminophen/ Hydrocodone Bitart ([place] 5/325) 1 tab Q6H PRN ORAL For Pain 04/20/17 17:45 04/27/17 17:44 Al Hydroxide/Mg Hydroxide (Mylanta II) 30 ml Q6H PRN ORAL dyspepsia 04/12/17 15:45 05/12/17 15:44 Allopurinol (Zyloprim) 300 mg DAILY ORAL 04/13/17 09:00 05/13/17 08:59 04/21/17 08:45 Amlodipine Besylate (Norvasc) 5 mg DAILY ORAL 04/13/17 09:00 05/13/17 08:59 04/21/17 08:46 Atorvastatin Calcium (Lipitor) 80 mg QHS ORAL 04/12/17 21:00 05/12/17 20:59 04/21/17 21:41 Chlorhexidine Gluconate (Lisette-Hex 2%) 1 applic DAILY@2000 TOPIC 04/15/17 20:00 05/15/17 19:59 04/21/17 21:41 Dextrose (Dextrose 50%) STAT PRN IV Hypoglycemia 04/12/17 15:45 05/12/17 15:44 Dextrose/Sodium Chloride 1,000 ml @ 75 mls/hr [id number] IV 04/12/17 17:45 05/12/17 17:44 04/22/17 04:33 Diphenoxylate HCl/ Atropine (Lomotil) 2.5 mg Q4H PRN ORAL Diarrhea 04/12/17 16:15 05/12/17 16:14 04/14/17 14:52 Dronabinol (Marinol) 5 mg BID ORAL 04/12/17 18:00 05/12/17 17:59 04/21/17 17:55 Ertapenem 1 gm/ Sodium Chloride 55 ml @ 110 mls/hr Q24H IVPB 04/14/17 18:00 04/27/17 23:59 04/21/17 17:58 Finasteride (Proscar) 5 mg DAILY ORAL 04/13/17 09:00 05/13/17 08:59 04/21/17 08:46 Heparin Sodium (Porcine) (Heparin 5000 units/ml) 5,000 units EVERY 12 HOURS SUBQ 04/12/17 21:00 05/12/17 20:59 Magnesium Oxide (Mag-Ox 400mg) 400 mg THREE TIMES A DAY ORAL 04/21/17 13:00 05/21/17 12:59 04/21/17 17:58 Metoprolol Tartrate (Lopressor) 25 mg Q12HR ORAL 04/12/17 21:00 05/12/17 20:59 04/21/17 21:46 Metronidazole (Flagyl) 500 mg Q8H ORAL 04/14/17 20:00 04/27/17 23:59 04/22/17 04:33 Nitroglycerin (Ntg) 0.4 mg Q5M X 3 DOSES PRN SL Prn Chest Pain 04/12/17 15:45 05/12/17 15:44 Nystatin (Nystop Powder) 1 applic BID TOPIC 04/20/17 21:00 05/20/17 20:59 04/21/17 17:56 Ondansetron HCl (Zofran) 4 mg Q6H PRN IVP Nausea & Vomiting 04/12/17 15:45 05/12/17 15:44 Promethazine HCl (Phenergan) 25 mg Q8H PRN IV refractory nausea 04/12/17 15:45 05/12/17 15:44 Ranitidine HCl (Zantac) 150 mg BEDTIME ORAL 04/13/17 21:00 05/13/17 20:59 04/21/17 21:42 Tamsulosin HCl (Flomax) 0.4 mg BID ORAL 04/12/17 18:00 05/12/17 17:59 04/21/17 17:56 Vancomycin HCl (Vancomycin) 250 mg FOUR TIMES A DAY ORAL 04/19/17 13:00 04/27/17 23:59 04/21/17 21:42 Vitamin D (Vitamin D) 800 intlu DAILY ORAL 04/20/17 09:00 05/20/17 08:59 04/21/17 08:45 Justyn (Ashwinilexie)Aileen NP Apr 22, 2017 07:51
[2017-04-22 08:15] VITALS: BP 123/70
[2017-04-22] MEDS: Heparin 5000 units/ml inj SUBQ SCH ×2 (08:16→21:00)
[2017-04-22] MEDS: Dronabinol 2.5mg Cap ORAL SCH (08:54)
[2017-04-22] MEDS: Vitamin D 400 INTLU TAB ORAL SCH (08:54)
[2017-04-22] MEDS: Allopurinol 100mg Tab ORAL SCH (08:54)
[2017-04-22] MEDS: Tamsulosin 0.4mg cap ORAL SCH ×2 (08:54→17:09)
[2017-04-22] MEDS: Magnesium Oxide 400mg tab ORAL SCH ×3 (08:55→17:09)
[2017-04-22] MEDS: Vancomycin oral 125mg/2.5ml ORAL SCH ×4 (08:55→20:56)
[2017-04-22] MEDS: Metoprolol 25mg tab ORAL SCH ×2 (08:55→20:55)
[2017-04-22] MEDS: Nystatin Powder 100,000 units/gm 15gm TOPIC SCH ×2 (08:56→17:10)
--- NOTE | 2017-04-22 10:14 | GI Progress Note ---
Assessment/Plan Problems: (1) Chemotherapy-induced diarrhea ICD Codes: K52.1 - Toxic gastroenteritis and colitis; T45.1X5A - Adverse effect of antineoplastic and immunosuppressive drugs, initial encounter SNOMED: 771352607, 957112133 (2) Clostridium difficile colitis ICD Codes: A04.7 - Enterocolitis due to Clostridium difficile SNOMED: 701405111 (3) Anemia ICD Codes: D64.9 - Anemia SNOMED: 029337553 (4) Clostridium difficile diarrhea ICD Codes: A04.72 - Enterocolitis due to Clostridium difficile, not specified as recurrent SNOMED: 8768514002797 (5) Amyloidosis ICD Codes: E85.9 - Amyloidosis, unspecified SNOMED: 35546059 Status: unchanged Status Narrative Discussed with Dr. Flores. Assessment/Plan s/p EGD/colonoscopy 2015 >> amyloidosis stool culture normal folate/B12 WNL Vit D deficiency abdominal U/S unremarkable PICC in place on abx monitor H&H, prn transfusions low residual/fiber diet / lactose free diet IV hydration + electrolyte replacement lomotil prn H2B fu labs Vit D daily dc planning Subjective Subjective diarrhea resolved Objective Last 24 Hour Vital Signs Date Time Temp Pulse Resp B/P (MAP) Pulse Ox O2 Delivery O2 Flow Rate FiO2 04/22/17 08:55 83 123/70 04/22/17 08:55 83 123/70 04/22/17 08:15 97.6 83 21 123/70 99 Room Air 04/22/17 04:00 97.8 79 18 137/69 96 Room Air 04/22/17 00:00 98.0 84 18 133/74 99 Room Air 04/21/17 21:46 83 131/72 04/21/17 20:00 98.2 83 18 131/72 100 Room Air 04/21/17 16:00 98.0 84 18 140/86 96 Room Air 04/21/17 12:15 97.9 86 23 140/89 99 Room Air Intake and Output 04/22/17 04/23/17 19:00 07:00 Intake Total 240 ml Output Total 600 ml Balance -360 ml Intake Oral 240 ml Output Urine Total 600 ml # Voids 1 Laboratory Tests Test 04/22/17 06:00 White Blood Count 7.3 K/UL (4.8-10.8) Red Blood Count 3.02 M/UL (4.70-6.10) L Hemoglobin 9.8 G/DL (14.2-18.0) L Hematocrit 30.2 % (42.0-52.0) L Mean Corpuscular Volume 100 FL (80-99) H Mean Corpuscular Hemoglobin 32.4 PG (27.0-31.0) H Mean Corpuscular Hemoglobin Concent 32.4 G/DL (32.0-36.0) Red Cell Distribution Width 14.6 % (11.6-14.8) Platelet Count 131 K/UL (150-450) L Mean Platelet Volume 7.8 FL (6.5-10.1) Neutrophils (%) (Auto) 73.0 % (45.0-75.0) Lymphocytes (%) (Auto) 13.3 % (20.0-45.0) L Monocytes (%) (Auto) 10.2 % (1.0-10.0) H Eosinophils (%) (Auto) 1.9 % (0.0-3.0) Basophils (%) (Auto) 1.5 % (0.0-2.0) Sodium Level 143 MMOL/L (136-145) Potassium Level 3.4 MMOL/L (3.5-5.1) L Chloride Level 107 MMOL/L (98-107) Carbon Dioxide Level 25 MMOL/L (21-32) Anion Gap 11 mmol/L (5-15) Blood Urea Nitrogen 5 mg/dL (7-18) L Creatinine 1.3 MG/DL (0.55-1.30) Estimat Glomerular Filtration Rate mL/min (>60) Glucose Level 83 MG/DL (74-106) Calcium Level 8.8 MG/DL (8.5-10.1) Magnesium Level 1.8 MG/DL (1.8-2.4) Height (Feet): 6 Height (Inches): 1.00 Weight (Pounds): 197 General Appearance: WD/WN, no apparent distress, alert, confused - at times, has slurred speech Cardiovascular: normal rate Respiratory/Chest: normal breath sounds, no respiratory distress Abdominal Exam: normal bowel sounds, non tender, soft Extremities: non-tender Domenica Chanel N.P. Apr 22, 2017 10:14
[2017-04-22 12:15] VITALS: BP 147/72
--- NOTE | 2017-04-22 14:12 | Infectious Diseases Prog Note ---
Assessment/Plan Assessment/Plan ASSESSMENT: The patient is a 76-year-old male with: Extended spectrum beta-lactamases E. coli urinary tract UTI Diarrhea due to recurrent C Diff improving History of recurrent Clostridium difficile.( recent +ve 03/29/17) Leukopenia SP Afebrile. History of multiple myeloma on chemo. History of GI trach amyloidosis. History of appendicitis. History of intraabdominal abscess in 2014. Hypertension. Prostate cancer. TURP. CAD. CABG h/o CVA NKDA Full Code PLAN: Cont pt on oral vancomycin , Flagyl and Invanz day # Monitor CBC Monitor BMP Subjective Allergies: Coded Allergies: No Known Allergies (Unverified , 04/23/13) Subjective remains afebrile no diarrhea Objective Vital Signs Last 24 Hour Vital Signs Date Time Temp Pulse Resp B/P (MAP) Pulse Ox O2 Delivery O2 Flow Rate FiO2 04/22/17 12:15 97.5 73 22 147/72 97 Room Air 04/22/17 08:55 83 123/70 04/22/17 08:55 83 123/70 04/22/17 08:15 97.6 83 21 123/70 99 Room Air 04/22/17 04:00 97.8 79 18 137/69 96 Room Air 04/22/17 00:00 98.0 84 18 133/74 99 Room Air 04/21/17 21:46 83 131/72 04/21/17 20:00 98.2 83 18 131/72 100 Room Air 04/21/17 16:00 98.0 84 18 140/86 96 Room Air Height (Feet): 6 Height (Inches): 1.00 Weight (Pounds): 197 General Appearance: no acute distress Respiratory/Chest: no respiratory distress Cardiovascular: normal rate, regular rhythm Abdomen: normal bowel sounds, soft, non tender, non distended Laboratory Tests Test 04/22/17 06:00 White Blood Count 7.3 K/UL (4.8-10.8) Red Blood Count 3.02 M/UL (4.70-6.10) L Hemoglobin 9.8 G/DL (14.2-18.0) L Hematocrit 30.2 % (42.0-52.0) L Mean Corpuscular Volume 100 FL (80-99) H Mean Corpuscular Hemoglobin 32.4 PG (27.0-31.0) H Mean Corpuscular Hemoglobin Concent 32.4 G/DL (32.0-36.0) Red Cell Distribution Width 14.6 % (11.6-14.8) Platelet Count 131 K/UL (150-450) L Mean Platelet Volume 7.8 FL (6.5-10.1) Neutrophils (%) (Auto) 73.0 % (45.0-75.0) Lymphocytes (%) (Auto) 13.3 % (20.0-45.0) L Monocytes (%) (Auto) 10.2 % (1.0-10.0) H Eosinophils (%) (Auto) 1.9 % (0.0-3.0) Basophils (%) (Auto) 1.5 % (0.0-2.0) Sodium Level 143 MMOL/L (136-145) Potassium Level 3.4 MMOL/L (3.5-5.1) L Chloride Level 107 MMOL/L (98-107) Carbon Dioxide Level 25 MMOL/L (21-32) Anion Gap 11 mmol/L (5-15) Blood Urea Nitrogen 5 mg/dL (7-18) L Creatinine 1.3 MG/DL (0.55-1.30) Estimat Glomerular Filtration Rate mL/min (>60) Glucose Level 83 MG/DL (74-106) Calcium Level 8.8 MG/DL (8.5-10.1) Magnesium Level 1.8 MG/DL (1.8-2.4) Current Medications Medications (Trade) Dose Ordered Sig/Antionette Route PRN Reason Start Time Stop Time Status Last Admin Dose Admin Acetaminophen (Tylenol) 650 mg Q4H PRN ORAL fever 04/12/17 15:45 05/12/17 15:44 Acetaminophen/ Hydrocodone Bitart ([place] 5/325) 1 tab Q6H PRN ORAL For Pain 04/20/17 17:45 04/27/17 17:44 Al Hydroxide/Mg Hydroxide (Mylanta II) 30 ml Q6H PRN ORAL dyspepsia 04/12/17 15:45 05/12/17 15:44 Allopurinol (Zyloprim) 300 mg DAILY ORAL 04/13/17 09:00 05/13/17 08:59 04/22/17 08:54 Amlodipine Besylate (Norvasc) 5 mg DAILY ORAL 04/13/17 09:00 05/13/17 08:59 04/22/17 08:55 Atorvastatin Calcium (Lipitor) 80 mg QHS ORAL 04/12/17 21:00 05/12/17 20:59 04/21/17 21:41 Chlorhexidine Gluconate (Lisette-Hex 2%) 1 applic DAILY@2000 TOPIC 04/15/17 20:00 05/15/17 19:59 04/21/17 21:41 Dextrose (Dextrose 50%) STAT PRN IV Hypoglycemia 04/12/17 15:45 05/12/17 15:44 Dextrose/Sodium Chloride 1,000 ml @ 75 mls/hr [id number] IV 04/12/17 17:45 05/12/17 17:44 04/22/17 04:33 Diphenoxylate HCl/ Atropine (Lomotil) 2.5 mg Q4H PRN ORAL Diarrhea 04/12/17 16:15 05/12/17 16:14 04/14/17 14:52 Dronabinol (Marinol) 5 mg BID ORAL 04/12/17 18:00 05/12/17 17:59 04/22/17 08:54 Ertapenem 1 gm/ Sodium Chloride 55 ml @ 110 mls/hr Q24H IVPB 04/14/17 18:00 04/27/17 23:59 04/21/17 17:58 Finasteride (Proscar) 5 mg DAILY ORAL 04/13/17 09:00 05/13/17 08:59 04/22/17 08:55 Heparin Sodium (Porcine) (Heparin 5000 units/ml) 5,000 units EVERY 12 HOURS SUBQ 04/12/17 21:00 05/12/17 20:59 Magnesium Oxide (Mag-Ox 400mg) 400 mg THREE TIMES A DAY ORAL 04/21/17 13:00 05/21/17 12:59 04/22/17 12:59 Metoprolol Tartrate (Lopressor) 25 mg Q12HR ORAL 04/12/17 21:00 05/12/17 20:59 04/22/17 08:55 Metronidazole (Flagyl) 500 mg Q8H ORAL 04/14/17 20:00 04/27/17 23:59 04/22/17 12:59 Nitroglycerin (Ntg) 0.4 mg Q5M X 3 DOSES PRN SL Prn Chest Pain 04/12/17 15:45 05/12/17 15:44 Nystatin (Nystop Powder) 1 applic BID TOPIC 04/20/17 21:00 05/20/17 20:59 04/22/17 08:56 Ondansetron HCl (Zofran) 4 mg Q6H PRN IVP Nausea & Vomiting 04/12/17 15:45 05/12/17 15:44 Promethazine HCl (Phenergan) 25 mg Q8H PRN IV refractory nausea 04/12/17 15:45 05/12/17 15:44 Ranitidine HCl (Zantac) 150 mg BEDTIME ORAL 04/13/17 21:00 05/13/17 20:59 04/21/17 21:42 Tamsulosin HCl (Flomax) 0.4 mg BID ORAL 04/12/17 18:00 05/12/17 17:59 04/22/17 08:54 Vancomycin HCl (Vancomycin) 250 mg FOUR TIMES A DAY ORAL 04/19/17 13:00 04/27/17 23:59 04/22/17 12:59 Vitamin D (Vitamin D) 800 intlu DAILY ORAL 04/20/17 09:00 05/20/17 08:59 04/22/17 08:54 MADELEINE GARCIA Apr 22, 2017 14:12
--- NOTE | 2017-04-22 15:49 | Internal Med Progress Note ---
Subjective Physician Name Jovani Villagomez Attending Physician Jovani Villagomez MD Current Medications Medications (Trade) Dose Ordered Sig/Antionette Route PRN Reason Start Time Stop Time Status Last Admin Dose Admin Acetaminophen (Tylenol) 650 mg Q4H PRN ORAL fever 04/12/17 15:45 05/12/17 15:44 Acetaminophen/ Hydrocodone Bitart ([place] 5/325) 1 tab Q6H PRN ORAL For Pain 04/20/17 17:45 04/27/17 17:44 Al Hydroxide/Mg Hydroxide (Mylanta II) 30 ml Q6H PRN ORAL dyspepsia 04/12/17 15:45 05/12/17 15:44 Allopurinol (Zyloprim) 300 mg DAILY ORAL 04/13/17 09:00 05/13/17 08:59 04/22/17 08:54 Amlodipine Besylate (Norvasc) 5 mg DAILY ORAL 04/13/17 09:00 05/13/17 08:59 04/22/17 08:55 Atorvastatin Calcium (Lipitor) 80 mg QHS ORAL 04/12/17 21:00 05/12/17 20:59 04/21/17 21:41 Chlorhexidine Gluconate (Lisette-Hex 2%) 1 applic DAILY@2000 TOPIC 04/15/17 20:00 05/15/17 19:59 04/21/17 21:41 Dextrose (Dextrose 50%) STAT PRN IV Hypoglycemia 04/12/17 15:45 05/12/17 15:44 Dextrose/Sodium Chloride 1,000 ml @ 75 mls/hr [id number] IV 04/12/17 17:45 05/12/17 17:44 04/22/17 04:33 Diphenoxylate HCl/ Atropine (Lomotil) 2.5 mg Q4H PRN ORAL Diarrhea 04/12/17 16:15 05/12/17 16:14 04/14/17 14:52 Dronabinol (Marinol) 5 mg BID ORAL 04/12/17 18:00 05/12/17 17:59 04/22/17 08:54 Ertapenem 1 gm/ Sodium Chloride 55 ml @ 110 mls/hr Q24H IVPB 04/14/17 18:00 04/27/17 23:59 04/21/17 17:58 Finasteride (Proscar) 5 mg DAILY ORAL 04/13/17 09:00 05/13/17 08:59 04/22/17 08:55 Heparin Sodium (Porcine) (Heparin 5000 units/ml) 5,000 units EVERY 12 HOURS SUBQ 04/12/17 21:00 05/12/17 20:59 Magnesium Oxide (Mag-Ox 400mg) 400 mg THREE TIMES A DAY ORAL 04/21/17 13:00 05/21/17 12:59 04/22/17 12:59 Metoprolol Tartrate (Lopressor) 25 mg Q12HR ORAL 04/12/17 21:00 05/12/17 20:59 04/22/17 08:55 Metronidazole (Flagyl) 500 mg Q8H ORAL 04/14/17 20:00 04/27/17 23:59 04/22/17 12:59 Nitroglycerin (Ntg) 0.4 mg Q5M X 3 DOSES PRN SL Prn Chest Pain 04/12/17 15:45 05/12/17 15:44 Nystatin (Nystop Powder) 1 applic BID TOPIC 04/20/17 21:00 05/20/17 20:59 04/22/17 08:56 Ondansetron HCl (Zofran) 4 mg Q6H PRN IVP Nausea & Vomiting 04/12/17 15:45 05/12/17 15:44 Promethazine HCl (Phenergan) 25 mg Q8H PRN IV refractory nausea 04/12/17 15:45 05/12/17 15:44 Ranitidine HCl (Zantac) 150 mg BEDTIME ORAL 04/13/17 21:00 05/13/17 20:59 04/21/17 21:42 Tamsulosin HCl (Flomax) 0.4 mg BID ORAL 04/12/17 18:00 05/12/17 17:59 04/22/17 08:54 Vancomycin HCl (Vancomycin) 250 mg FOUR TIMES A DAY ORAL 04/19/17 13:00 04/27/17 23:59 04/22/17 12:59 Vitamin D (Vitamin D) 800 intlu DAILY ORAL 04/20/17 09:00 05/20/17 08:59 04/22/17 08:54 Allergies: Coded Allergies: No Known Allergies (Unverified , 04/23/13) Subjective awake, alert, responsive, NAD, speech slurs, some confusion. Objective Last Vital Signs Date Time Temp Pulse Resp B/P (MAP) Pulse Ox O2 Delivery O2 Flow Rate FiO2 04/22/17 12:15 97.5 73 22 147/72 97 Room Air Laboratory Tests Test 04/22/17 06:00 White Blood Count 7.3 K/UL (4.8-10.8) Red Blood Count 3.02 M/UL (4.70-6.10) L Hemoglobin 9.8 G/DL (14.2-18.0) L Hematocrit 30.2 % (42.0-52.0) L Mean Corpuscular Volume 100 FL (80-99) H Mean Corpuscular Hemoglobin 32.4 PG (27.0-31.0) H Mean Corpuscular Hemoglobin Concent 32.4 G/DL (32.0-36.0) Red Cell Distribution Width 14.6 % (11.6-14.8) Platelet Count 131 K/UL (150-450) L Mean Platelet Volume 7.8 FL (6.5-10.1) Neutrophils (%) (Auto) 73.0 % (45.0-75.0) Lymphocytes (%) (Auto) 13.3 % (20.0-45.0) L Monocytes (%) (Auto) 10.2 % (1.0-10.0) H Eosinophils (%) (Auto) 1.9 % (0.0-3.0) Basophils (%) (Auto) 1.5 % (0.0-2.0) Sodium Level 143 MMOL/L (136-145) Potassium Level 3.4 MMOL/L (3.5-5.1) L Chloride Level 107 MMOL/L (98-107) Carbon Dioxide Level 25 MMOL/L (21-32) Anion Gap 11 mmol/L (5-15) Blood Urea Nitrogen 5 mg/dL (7-18) L Creatinine 1.3 MG/DL (0.55-1.30) Estimat Glomerular Filtration Rate mL/min (>60) Glucose Level 83 MG/DL (74-106) Calcium Level 8.8 MG/DL (8.5-10.1) Magnesium Level 1.8 MG/DL (1.8-2.4) Intake and Output 04/22/17 04/23/17 19:00 07:00 Intake Total 360 ml Output Total 600 ml Balance -240 ml Intake Oral 360 ml Output Urine Total 600 ml # Voids 4 Objective General: No acute distress, awake and confuse, slurs speech. HEENT: NCAT, sclera anicteric, PERRL, EOMI. Neck: Supple, no significant jugular venous distention, Lungs: Good inspiratory effort, clear to auscultation bilaterally, no Wheeze or Rales. Heart: Regular rate and rhythm, normal S1/S2, no murmurs Abdomen: soft, nontender, nondistended. Normoactive bowel sounds. Extremities: No Cyanosis , clubbing or edema. RUE Piccline. Neuro: A&O x 3, Able to move all extremities Skin: warm, no rashes or lesions Psych: Normal mood and affect Assessment/Plan Assessment/Plan Extended spectrum beta-lactamases E. 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 History of recurrent C. diff colitis Multiple myeloma Under chemotherapy History of GI trach amyloidosis. History of appendicitis. History of intraabdominal abscess in 2014. Hypertension. Prostate cancer. TURP. CAD s/p CABG Slur speech most likely medication induced, Lyrica and amitriptyline PLAN: Abx: oral vancomycin, Flagyl and Invanz IV Monitor Labs Monitor blood culture On Imodium PRN F/U with ID recommendation MG IV DC planning in AM. MRI Brain: Chronic and age-related changes, as described, stable since 07/14/2015 Negative for acute intracranial bleed, mass effect, or infarct Old left cerebellar infarct, also previously described Sinus disease, slightly improved Jovani Villagomez MD Apr 22, 2017 15:49
[2017-04-22 16:07] VITALS: BP 145/79
[2017-04-22] MEDS: Ertapenem 1 GM in NS 55 ML IVPB SCH (17:09)
--- NOTE | 2017-04-22 18:39 | Consultation ---
History of Present Illness General Date patient seen: Apr 21, 2017 Chief Complaint: Abdominal Pain Referring physician: JASON REYES Reason for Consultation: CDIFF Present Illness HPI The patient was admitted to [facility] from 03/28/2017 to 2016. The patient was diagnosed with Clostridium difficile colitis at that time. The patient was discharged home on oral vancomycin. the pt has episodes of agitation nortriptyline was dced. the pt has cognitive impairment Allergies: Coded Allergies: No Known Allergies (Unverified , 04/23/13) Medication History Scheduled Acyclovir* (Acyclovir*), 400 MG ORAL BID, (Reported) Allopurinol* (Allopurinol*), 300 MG ORAL DAILY Amlodipine Besylate (Norvasc), 5 MG ORAL DAILY Aspirin Ec* (Aspirin Ec*), 81 MG ORAL DAILY Atorvastatin (Lipitor), 80 MG ORAL DAILY, (Reported) Atorvastatin Calcium* (Lipitor*), 20 MG ORAL BEDTIME Clonidine Hcl* (Catapres*), 0.1 MG ORAL EVERY 6 HOURS, (Reported) Diphenoxylate Hcl/Atropine (Lomotil Tablet), 5 MG ORAL TID Dronabinol* (Marinol*), 5 MG ORAL BID Ferrous Sulfate (Feosol), 325 MG ORAL DAILY Finasteride (Finasteride), 5 MG ORAL DAILY Lansoprazole* (Lansoprazole*), 15 MG ORAL DAILY, (Reported) Magnesium Oxide (Magox 400), 400 MG ORAL TID, (Reported) Metoprolol Tartrate (Metoprolol Tartrate), 25 MG ORAL Q12HR Nortriptyline HCl (Nortriptyline HCl), 25 MG ORAL QHS Pantoprazole* (Protonix*), 40 MG ORAL DAILY, (Reported) Ranitidine Hcl* (Zantac*), 150 MG ORAL BEDTIME Tamsulosin HCl (Flomax), 0.4 MG ORAL BID Thalidomide (Thalomid), 50 MG PO DAILY, (Reported) Valsartan (Diovan), 80 MG ORAL DAILY, (Reported) Vancomycin Hcl (Vancomycin Hcl), 125 MG PO BID, (Reported) Scheduled PRN Acetaminophen* (Acetaminophen 325MG Tablet*), 650 MG ORAL Q4H PRN Clonidine HCl (Clonidine HCl), 0.1 MG ORAL Q8H PRN for sbp>170 Hydrocodone Bit/Acetaminophen 10-325* (Hydrocodon-Acetaminophn 10-325*), 1 EA ORAL Q6H PRN for Severe Pain (Pain Scale 7-10) Loperamide HCl (Loperamide), 2 MG ORAL Q8H PRN for Diarrhea Ondansetron* (Zofran*), 4 MG ORAL Q6H PRN for Nausea & Vomiting, (Reported) Pregabalin* (Lyrica*), 75 MG ORAL BID PRN for nerve pain Miscellaneous Medications Terazosin Hcl (Terazosin Hcl), 10 MG ORAL, (Reported) Patient History History Provided By: Medical Record, PMD Healthcare decision maker Resuscitation status Full Code Advanced Directive on File No Past Medical/Surgical History Past Medical/Surgical History: (1) acute lumbar strain (2) Hyperkalemia (3) Acute coronary syndrome (4) Acute renal disease (5) Elevated troponin I level (6) Elevated LFTs (7) Symptomatic anemia (8) Chemotherapy follow-up examination (9) Pain, abdominal (10) Acute renal disease (11) Hyperkalemia (12) Weakness (13) Metabolic acidosis (14) Hypomagnesemia (15) Renal failure (16) Weakness (17) Chronic pain (18) Contusion (19) Multiple injuries due to trauma (20) Acute respiratory failure (21) Ventilator dependent (22) Acute onset of unresponsiveness, ? etiology.r/o acute respiratory insuficiency (23) r/o ictal event r/oSAH (24) Transient LOC probably postanoxic encephalopathy. (25) RLQ abdominal pain (26) Fever (27) Dehydration (28) Line sepsis (29) E coli bacteremia (30) E-coli UTI (31) ESBL (extended spectrum beta-lactamase) producing bacteria infection (32) Coagulopathy (33) PICC (peripherally inserted central catheter) in place (34) Bleeding from PICC line (35) Syncope (36) Sepsis due to other specified Staphylococcus (37) Agitation (38) Acute encephalopathy (39) r/o paraneoplastic syndrom (40) Postherpetic neuralgia (41) Acute encephalopathy (42) Acute renal disease (43) PVC (premature ventricular contraction) (44) ACS (acute coronary syndrome) (45) Chest pain (46) Renal failure, acute (47) Flank pain (48) Pulmonary embolism (49) Left flank pain (50) Postherpetic neuralgia (51) Shingles (52) Dysentery (53) Leukocytosis (54) Acute on chronic renal failure (55) Hypokalemia (56) Shingles (57) Thrombocytopenia (58) CKD (chronic kidney disease) (59) Renal insufficiency (60) Post herpetic neuralgia (61) CKD (chronic kidney disease) (62) Hypercholesteremia (63) Episode of generalized weakness (64) Cough (65) Bronchitis (66) Leg pain, bilateral (67) Diarrhea (68) Diarrhea (69) Myeloma (70) Anemia (71) Anemia (72) Anemia (73) Pancreatitis (74) Pyelonephritis (75) Abdominal pain (76) LUQ abdominal pain (77) Clostridium difficile colitis (78) Chemotherapy-induced diarrhea (79) Amyloidosis (80) CAD (coronary artery disease) (81) UTI (urinary tract infection) (82) Multiple myeloma (83) HTN (hypertension) (84) LLQ abdominal pain (85) BPH (benign prostatic hyperplasia) (86) Clostridium difficile diarrhea (87) Sepsis (88) Hypertension (89) Multiple myeloma (90) C. difficile colitis (91) Confused (92) Chronic pain syndrome (93) Prostate cancer (94) toxic metabolic encephalopathy,multifactorial Review of Systems Psychiatric: Reports: prior hx, anxiety, depressed feelings Physical Exam General Appearance: alert Neurologic: alert, oriented x 3, responsive, depressed affect Last 24 Hour Vital Signs Date Time Temp Pulse Resp B/P (MAP) Pulse Ox O2 Delivery O2 Flow Rate FiO2 04/22/17 16:07 98.6 97 20 145/79 99 Room Air 04/22/17 12:15 97.5 73 22 147/72 97 Room Air 04/22/17 08:55 83 123/70 04/22/17 08:55 83 123/70 04/22/17 08:15 97.6 83 21 123/70 99 Room Air 04/22/17 04:00 97.8 79 18 137/69 96 Room Air 04/22/17 00:00 98.0 84 18 133/74 99 Room Air 04/21/17 21:46 83 131/72 04/21/17 20:00 98.2 83 18 131/72 100 Room Air Intake and Output 04/22/17 04/23/17 19:00 07:00 Intake Total 360 ml Output Total 600 ml Balance -240 ml Intake Oral 360 ml Output Urine Total 600 ml # Voids 4 Laboratory Tests Test 04/22/17 06:00 White Blood Count 7.3 K/UL (4.8-10.8) Red Blood Count 3.02 M/UL (4.70-6.10) L Hemoglobin 9.8 G/DL (14.2-18.0) L Hematocrit 30.2 % (42.0-52.0) L Mean Corpuscular Volume 100 FL (80-99) H Mean Corpuscular Hemoglobin 32.4 PG (27.0-31.0) H Mean Corpuscular Hemoglobin Concent 32.4 G/DL (32.0-36.0) Red Cell Distribution Width 14.6 % (11.6-14.8) Platelet Count 131 K/UL (150-450) L Mean Platelet Volume 7.8 FL (6.5-10.1) Neutrophils (%) (Auto) 73.0 % (45.0-75.0) Lymphocytes (%) (Auto) 13.3 % (20.0-45.0) L Monocytes (%) (Auto) 10.2 % (1.0-10.0) H Eosinophils (%) (Auto) 1.9 % (0.0-3.0) Basophils (%) (Auto) 1.5 % (0.0-2.0) Sodium Level 143 MMOL/L (136-145) Potassium Level 3.4 MMOL/L (3.5-5.1) L Chloride Level 107 MMOL/L (98-107) Carbon Dioxide Level 25 MMOL/L (21-32) Anion Gap 11 mmol/L (5-15) Blood Urea Nitrogen 5 mg/dL (7-18) L Creatinine 1.3 MG/DL (0.55-1.30) Estimat Glomerular Filtration Rate mL/min (>60) Glucose Level 83 MG/DL (74-106) Calcium Level 8.8 MG/DL (8.5-10.1) Magnesium Level 1.8 MG/DL (1.8-2.4) Height (Feet): 6 Height (Inches): 1.00 Weight (Pounds): 197 Medications Current Medications Medications (Trade) Dose Ordered Sig/Antionette Route PRN Reason Start Time Stop Time Status Last Admin Dose Admin Acetaminophen (Tylenol) 650 mg Q4H PRN ORAL fever 04/12/17 15:45 05/12/17 15:44 Acetaminophen/ Hydrocodone Bitart ([place] 5/325) 1 tab Q6H PRN ORAL For Pain 04/20/17 17:45 04/27/17 17:44 Al Hydroxide/Mg Hydroxide (Mylanta II) 30 ml Q6H PRN ORAL dyspepsia 04/12/17 15:45 05/12/17 15:44 Allopurinol (Zyloprim) 300 mg DAILY ORAL 04/13/17 09:00 05/13/17 08:59 04/22/17 08:54 Amlodipine Besylate (Norvasc) 5 mg DAILY ORAL 04/13/17 09:00 05/13/17 08:59 04/22/17 08:55 Atorvastatin Calcium (Lipitor) 80 mg QHS ORAL 04/12/17 21:00 05/12/17 20:59 04/21/17 21:41 Chlorhexidine Gluconate (Lisette-Hex 2%) 1 applic DAILY@2000 TOPIC 04/15/17 20:00 05/15/17 19:59 04/21/17 21:41 Dextrose (Dextrose 50%) STAT PRN IV Hypoglycemia 04/12/17 15:45 05/12/17 15:44 Dextrose/Sodium Chloride 1,000 ml @ 75 mls/hr [id number] IV 04/12/17 17:45 05/12/17 17:44 04/22/17 17:08 Diphenoxylate HCl/ Atropine (Lomotil) 2.5 mg Q4H PRN ORAL Diarrhea 04/12/17 16:15 05/12/17 16:14 04/14/17 14:52 Ertapenem 1 gm/ Sodium Chloride 55 ml @ 110 mls/hr Q24H IVPB 04/14/17 18:00 04/27/17 23:59 04/22/17 17:09 Finasteride (Proscar) 5 mg DAILY ORAL 04/13/17 09:00 05/13/17 08:59 04/22/17 08:55 Heparin Sodium (Porcine) (Heparin 5000 units/ml) 5,000 units EVERY 12 HOURS SUBQ 04/12/17 21:00 05/12/17 20:59 Magnesium Oxide (Mag-Ox 400mg) 400 mg THREE TIMES A DAY ORAL 04/21/17 13:00 05/21/17 12:59 04/22/17 17:09 Metoprolol Tartrate (Lopressor) 25 mg Q12HR ORAL 04/12/17 21:00 05/12/17 20:59 04/22/17 08:55 Metronidazole (Flagyl) 500 mg Q8H ORAL 04/14/17 20:00 04/27/17 23:59 04/22/17 12:59 Nitroglycerin (Ntg) 0.4 mg Q5M X 3 DOSES PRN SL Prn Chest Pain 04/12/17 15:45 05/12/17 15:44 Nystatin (Nystop Powder) 1 applic BID TOPIC 04/20/17 21:00 05/20/17 20:59 04/22/17 17:10 Ondansetron HCl (Zofran) 4 mg Q6H PRN IVP Nausea & Vomiting 04/12/17 15:45 05/12/17 15:44 Promethazine HCl (Phenergan) 25 mg Q8H PRN IV refractory nausea 04/12/17 15:45 05/12/17 15:44 Ranitidine HCl (Zantac) 150 mg BEDTIME ORAL 04/13/17 21:00 05/13/17 20:59 04/21/17 21:42 Tamsulosin HCl (Flomax) 0.4 mg BID ORAL 04/12/17 18:00 05/12/17 17:59 04/22/17 17:09 Vancomycin HCl (Vancomycin) 250 mg FOUR TIMES A DAY ORAL 04/19/17 13:00 04/27/17 23:59 04/22/17 17:09 Vitamin D (Vitamin D) 800 intlu DAILY ORAL 04/20/17 09:00 05/20/17 08:59 04/22/17 08:54 Assessment/Plan Status: stable, progressing Arelis Leonard M.D. Apr 22, 2017 18:39
[2017-04-22 19:59] VITALS: BP 140/80
[2017-04-22] MEDS: Dyna-Hex 2% Top Sol 2oz TOPIC SCH (20:54)
[2017-04-22] MEDS: Atorvastatin 80mg tab ORAL SCH (20:55)
[2017-04-22] MEDS ORDERED: D5 1/2NS 1000ml IV ONE (21:06)
[2017-04-23] VITALS: BP 140/72
[2017-04-23] MEDS: metroNIDAZOLE 500mg tab ORAL SCH ×3 (03:56→21:19)
[2017-04-23 04:01] VITALS: BP 135/65
[2017-04-23 05:27] LABS: EOSINOPHILS % (AUTO) 2.8 % (0.0-3.0); LYMPHOCYTES % (AUTO) 13.8 % (20.0-45.0); MEAN CORPUSCULAR HEMOGLOBIN 32.5 PG (27.0-31.0); MEAN CORPUSCULAR HGB CONC 32.5 G/DL (32.0-36.0); MEAN CORPUSCULAR VOLUME 100 FL (80-99); MEAN PLATELET VOLUME 6.8 FL (6.5-10.1); MONOCYTES % (AUTO) 11.3 % (1.0-10.0); NEUTROPHILS % (AUTO) 70.1 % (45.0-75.0); PLATELET COUNT 132 K/UL (150-450); RED BLOOD COUNT 2.99 M/UL (4.70-6.10); RED CELL DISTRIBUTION WIDTH 14.4 % (11.6-14.8); WHITE BLOOD COUNT 7.1 K/UL (4.8-10.8)
[2017-04-23 05:36] LABS: ANION GAP 9 mmol/L (5-15); CALCIUM 8.6 MG/DL (8.5-10.1); CARBON DIOXIDE 26 MMOL/L (21-32); CHLORIDE 108 MMOL/L (98-107); CREATININE 1.3 MG/DL (0.55-1.30); POTASSIUM 3.7 MMOL/L (3.5-5.1); SODIUM 143 MMOL/L (136-145)
[2017-04-23] MEDS: D5 1/2NS 1,000 ML IV SCH ×2 (06:16→17:25)
[2017-04-23 08:00] VITALS: BP 115/73
[2017-04-23] MEDS: Heparin 5000 units/ml inj SUBQ SCH ×2 (09:00→21:19)
[2017-04-23] MEDS: Tamsulosin 0.4mg cap ORAL SCH ×2 (09:31→17:24)
[2017-04-23] MEDS: Magnesium Oxide 400mg tab ORAL SCH ×3 (09:32→17:24)
[2017-04-23] MEDS: Metoprolol 25mg tab ORAL SCH ×2 (09:32→21:17)
[2017-04-23] MEDS: Vancomycin oral 125mg/2.5ml ORAL SCH ×4 (09:34→21:16)
[2017-04-23] MEDS: Vitamin D 400 INTLU TAB ORAL SCH (09:36)
[2017-04-23] MEDS: Allopurinol 100mg Tab ORAL SCH (09:37)
[2017-04-23] MEDS: Nystatin Powder 100,000 units/gm 15gm TOPIC SCH ×2 (09:38→17:41)
[2017-04-23] MEDS ORDERED: 1/2 NS 1000ml IV ONE (10:19)
[2017-04-23] MEDS ORDERED: Tubing IV Secondary IV ONE (10:19)
--- NOTE | 2017-04-23 11:02 | Pulmonology Progress Note ---
Assessment/Plan Assessment/Plan ASSESSMENT UTI/E coli ESBL C dif colitis with hx of recurrent C dif colitis leukopenia-resolved ( likely due to chemo) MM, under chemo HTN CAD, s/p CABG anemia of chronic disease prostate Ca vit D deficiency acute toxic metabolic encephalopathy(multifactorial) Hx of CVA e/lyte imbalance (hypo K, hypo Mg) GI amyloidosis PLAN OF CARE MS floor abx ID follows IVF Lomotil prn BP management with CCB and BB continue statin and ASA GI follows monitor HH, transfuse prn stool cx negative low residue diet, lactose free GI prophayxlsi vit D replacement abdominal US unremarkable MRI brain with evidence of old CVA no acute changes off Marinol mental status slightly better sitter at the bedside for safety monitor lytes and replace as needed , Mg stable after replacement, give additional KCL DVT prophylaxis PT/OT continue Flomax and Proscar would recommend SNF placement instead of home with HH services , case discussed and evaluated by supervising physician Subjective Allergies: Coded Allergies: No Known Allergies (Unverified , 04/23/13) Subjective denies chest pain, SOB, abdominal pain afebrile, no leukocytosis sitter at the bedside for safety Objective Last 24 Hour Vital Signs Date Time Temp Pulse Resp B/P (MAP) Pulse Ox O2 Delivery O2 Flow Rate FiO2 04/23/17 09:32 87 115/75 04/23/17 08:00 97.9 86 20 115/73 98 Room Air 04/23/17 04:01 97.5 82 20 135/65 100 Room Air 04/23/17 00:00 97.0 76 20 140/72 100 Room Air 04/22/17 20:55 84 140/80 04/22/17 19:59 97.9 84 20 140/80 99 Room Air 04/22/17 16:07 98.6 97 20 145/79 99 Room Air 04/22/17 12:15 97.5 73 22 147/72 97 Room Air Intake and Output 04/23/17 04/24/17 19:00 07:00 Intake Total 75 ml Balance 75 ml IV Total 75 ml Objective General Appearance: no acute distress HEENT: normocephalic, atraumatic Respiratory/Chest: lungs clear, no respiratory distress, no accessory muscle use Cardiovascular: normal rate, no JVD, other - PICC intact Abdomen: normal bowel sounds, soft, non tender Extremities: no edema Neurologic/Psychiatric: abnormal gait, alert, responsive Musculoskeletal: atrophy - BLE Laboratory Tests 04/23/17 05:20: White Blood Count 7.1, Red Blood Count 2.99L, Hemoglobin 9.7L, Hematocrit 29.9L , Mean Corpuscular Volume 100H, Mean Corpuscular Hemoglobin 32.5H, Mean Corpuscular Hemoglobin Concent 32.5, Red Cell Distribution Width 14.4, Platelet Count 132L, Mean Platelet Volume 6.8, Neutrophils (%) (Auto) 70.1, Lymphocytes ( %) (Auto) 13.8L, Monocytes (%) (Auto) 11.3H, Eosinophils (%) (Auto) 2.8, Basophils (%) (Auto) 2.0, Sodium Level 143, Potassium Level 3.7, Chloride Level 108H, Carbon Dioxide Level 26, Anion Gap 9, Blood Urea Nitrogen 5L, Creatinine 1.3, Estimat Glomerular Filtration Rate , Glucose Level 92, Calcium Level 8.6, Ammonia < 3L Current Medications Medications (Trade) Dose Ordered Sig/Antionette Route PRN Reason Start Time Stop Time Status Last Admin Dose Admin Acetaminophen (Tylenol) 650 mg Q4H PRN ORAL fever 04/12/17 15:45 05/12/17 15:44 Acetaminophen/ Hydrocodone Bitart ([place] 5/325) 1 tab Q6H PRN ORAL For Pain 04/20/17 17:45 04/27/17 17:44 Al Hydroxide/Mg Hydroxide (Mylanta II) 30 ml Q6H PRN ORAL dyspepsia 04/12/17 15:45 05/12/17 15:44 Allopurinol (Zyloprim) 300 mg DAILY ORAL 04/13/17 09:00 05/13/17 08:59 04/23/17 09:37 Amlodipine Besylate (Norvasc) 5 mg DAILY ORAL 04/13/17 09:00 05/13/17 08:59 04/22/17 08:55 Atorvastatin Calcium (Lipitor) 80 mg QHS ORAL 04/12/17 21:00 05/12/17 20:59 04/22/17 20:55 Chlorhexidine Gluconate (Lisette-Hex 2%) 1 applic DAILY@2000 TOPIC 04/15/17 20:00 05/15/17 19:59 04/22/17 20:54 Dextrose (Dextrose 50%) STAT PRN IV Hypoglycemia 04/12/17 15:45 05/12/17 15:44 Dextrose/Sodium Chloride 1,000 ml @ 75 mls/hr [id number] IV 04/12/17 17:45 05/12/17 17:44 04/23/17 06:16 Diphenoxylate HCl/ Atropine (Lomotil) 2.5 mg Q4H PRN ORAL Diarrhea 04/12/17 16:15 05/12/17 16:14 04/14/17 14:52 Ertapenem 1 gm/ Sodium Chloride 55 ml @ 110 mls/hr Q24H IVPB 04/14/17 18:00 04/27/17 23:59 04/22/17 17:09 Finasteride (Proscar) 5 mg DAILY ORAL 04/13/17 09:00 05/13/17 08:59 04/23/17 09:33 Heparin Sodium (Porcine) (Heparin 5000 units/ml) 5,000 units EVERY 12 HOURS SUBQ 04/12/17 21:00 05/12/17 20:59 Magnesium Oxide (Mag-Ox 400mg) 400 mg THREE TIMES A DAY ORAL 04/21/17 13:00 05/21/17 12:59 04/23/17 09:32 Metoprolol Tartrate (Lopressor) 25 mg Q12HR ORAL 04/12/17 21:00 05/12/17 20:59 04/23/17 09:32 Metronidazole (Flagyl) 500 mg Q8H ORAL 04/14/17 20:00 04/27/17 23:59 04/23/17 03:56 Nitroglycerin (Ntg) 0.4 mg Q5M X 3 DOSES PRN SL Prn Chest Pain 04/12/17 15:45 05/12/17 15:44 Nystatin (Nystop Powder) 1 applic BID TOPIC 04/20/17 21:00 05/20/17 20:59 04/23/17 09:38 Ondansetron HCl (Zofran) 4 mg Q6H PRN IVP Nausea & Vomiting 04/12/17 15:45 05/12/17 15:44 Promethazine HCl (Phenergan) 25 mg Q8H PRN IV refractory nausea 04/12/17 15:45 05/12/17 15:44 Ranitidine HCl (Zantac) 150 mg BEDTIME ORAL 04/13/17 21:00 05/13/17 20:59 04/22/17 20:55 Tamsulosin HCl (Flomax) 0.4 mg BID ORAL 04/12/17 18:00 05/12/17 17:59 04/23/17 09:31 Vancomycin HCl (Vancomycin) 250 mg FOUR TIMES A DAY ORAL 04/19/17 13:00 04/27/17 23:59 04/23/17 09:34 Vitamin D (Vitamin D) 800 intlu DAILY ORAL 04/20/17 09:00 05/20/17 08:59 04/23/17 09:36 Justyn (Aileen Bianchi NP Apr 23, 2017 11:02
[2017-04-23 12:00] VITALS: BP 144/82
--- NOTE | 2017-04-23 12:23 | Infectious Diseases Prog Note ---
Assessment/Plan Assessment/Plan ASSESSMENT: The patient is a 76-year-old male with: Extended spectrum beta-lactamases E. coli urinary tract UTI Diarrhea due to recurrent C Diff improving History of recurrent Clostridium difficile.( recent +ve 03/29/17) Leukopenia. Afebrile. History of multiple myeloma on chemo. History of GI trach amyloidosis. History of appendicitis. History of intraabdominal abscess in 2014. Hypertension. Prostate cancer. TURP. CAD. CABG PLAN: Cont pt on oral vancomycin , Flagyl and Invanz day # Monitor CBC Monitor BMP Subjective Constitutional: Denies: no symptoms, fever, chills, fatigue, anorexia, drenching sweats, other Allergies: Coded Allergies: No Known Allergies (Unverified , 04/23/13) Subjective afebrile Objective Vital Signs Last 24 Hour Vital Signs Date Time Temp Pulse Resp B/P (MAP) Pulse Ox O2 Delivery O2 Flow Rate FiO2 04/23/17 09:32 87 115/75 04/23/17 08:00 97.9 86 20 115/73 98 Room Air 04/23/17 04:01 97.5 82 20 135/65 100 Room Air 04/23/17 00:00 97.0 76 20 140/72 100 Room Air 04/22/17 20:55 84 140/80 04/22/17 19:59 97.9 84 20 140/80 99 Room Air 04/22/17 16:07 98.6 97 20 145/79 99 Room Air Height (Feet): 6 Height (Inches): 1.00 Weight (Pounds): 197 HEENT: mucous membranes moist Respiratory/Chest: no accessory muscle use Cardiovascular: no gallop/murmur Abdomen: no organomegaly Laboratory Tests Test 04/23/17 05:20 White Blood Count 7.1 K/UL (4.8-10.8) Red Blood Count 2.99 M/UL (4.70-6.10) L Hemoglobin 9.7 G/DL (14.2-18.0) L Hematocrit 29.9 % (42.0-52.0) L Mean Corpuscular Volume 100 FL (80-99) H Mean Corpuscular Hemoglobin 32.5 PG (27.0-31.0) H Mean Corpuscular Hemoglobin Concent 32.5 G/DL (32.0-36.0) Red Cell Distribution Width 14.4 % (11.6-14.8) Platelet Count 132 K/UL (150-450) L Mean Platelet Volume 6.8 FL (6.5-10.1) Neutrophils (%) (Auto) 70.1 % (45.0-75.0) Lymphocytes (%) (Auto) 13.8 % (20.0-45.0) L Monocytes (%) (Auto) 11.3 % (1.0-10.0) H Eosinophils (%) (Auto) 2.8 % (0.0-3.0) Basophils (%) (Auto) 2.0 % (0.0-2.0) Sodium Level 143 MMOL/L (136-145) Potassium Level 3.7 MMOL/L (3.5-5.1) Chloride Level 108 MMOL/L (98-107) H Carbon Dioxide Level 26 MMOL/L (21-32) Anion Gap 9 mmol/L (5-15) Blood Urea Nitrogen 5 mg/dL (7-18) L Creatinine 1.3 MG/DL (0.55-1.30) Estimat Glomerular Filtration Rate mL/min (>60) Glucose Level 92 MG/DL (74-106) Calcium Level 8.6 MG/DL (8.5-10.1) Ammonia < 3 umol/L (11.2-31.7) L Current Medications Medications (Trade) Dose Ordered Sig/Antionette Route PRN Reason Start Time Stop Time Status Last Admin Dose Admin Acetaminophen (Tylenol) 650 mg Q4H PRN ORAL fever 04/12/17 15:45 05/12/17 15:44 Acetaminophen/ Hydrocodone Bitart ([place] 5/325) 1 tab Q6H PRN ORAL For Pain 04/20/17 17:45 04/27/17 17:44 Al Hydroxide/Mg Hydroxide (Mylanta II) 30 ml Q6H PRN ORAL dyspepsia 04/12/17 15:45 05/12/17 15:44 Allopurinol (Zyloprim) 300 mg DAILY ORAL 04/13/17 09:00 05/13/17 08:59 04/23/17 09:37 Amlodipine Besylate (Norvasc) 5 mg DAILY ORAL 04/13/17 09:00 05/13/17 08:59 04/22/17 08:55 Atorvastatin Calcium (Lipitor) 80 mg QHS ORAL 04/12/17 21:00 05/12/17 20:59 04/22/17 20:55 Chlorhexidine Gluconate (Lisette-Hex 2%) 1 applic DAILY@2000 TOPIC 04/15/17 20:00 05/15/17 19:59 04/22/17 20:54 Dextrose (Dextrose 50%) STAT PRN IV Hypoglycemia 04/12/17 15:45 05/12/17 15:44 Dextrose/Sodium Chloride 1,000 ml @ 75 mls/hr [id number] IV 04/12/17 17:45 05/12/17 17:44 04/23/17 06:16 Diphenoxylate HCl/ Atropine (Lomotil) 2.5 mg Q4H PRN ORAL Diarrhea 04/12/17 16:15 05/12/17 16:14 04/14/17 14:52 Ertapenem 1 gm/ Sodium Chloride 55 ml @ 110 mls/hr Q24H IVPB 04/14/17 18:00 04/27/17 23:59 04/22/17 17:09 Finasteride (Proscar) 5 mg DAILY ORAL 04/13/17 09:00 05/13/17 08:59 04/23/17 09:33 Heparin Sodium (Porcine) (Heparin 5000 units/ml) 5,000 units EVERY 12 HOURS SUBQ 04/12/17 21:00 05/12/17 20:59 Magnesium Oxide (Mag-Ox 400mg) 400 mg THREE TIMES A DAY ORAL 04/21/17 13:00 05/21/17 12:59 04/23/17 12:20 Metoprolol Tartrate (Lopressor) 25 mg Q12HR ORAL 04/12/17 21:00 05/12/17 20:59 04/23/17 09:32 Metronidazole (Flagyl) 500 mg Q8H ORAL 04/14/17 20:00 04/27/17 23:59 04/23/17 12:19 Nitroglycerin (Ntg) 0.4 mg Q5M X 3 DOSES PRN SL Prn Chest Pain 04/12/17 15:45 05/12/17 15:44 Nystatin (Nystop Powder) 1 applic BID TOPIC 04/20/17 21:00 05/20/17 20:59 04/23/17 09:38 Ondansetron HCl (Zofran) 4 mg Q6H PRN IVP Nausea & Vomiting 04/12/17 15:45 05/12/17 15:44 Promethazine HCl (Phenergan) 25 mg Q8H PRN IV refractory nausea 04/12/17 15:45 05/12/17 15:44 Ranitidine HCl (Zantac) 150 mg BEDTIME ORAL 04/13/17 21:00 05/13/17 20:59 04/22/17 20:55 Tamsulosin HCl (Flomax) 0.4 mg BID ORAL 04/12/17 18:00 05/12/17 17:59 04/23/17 09:31 Vancomycin HCl (Vancomycin) 250 mg FOUR TIMES A DAY ORAL 04/19/17 13:00 04/27/17 23:59 04/23/17 12:20 Vitamin D (Vitamin D) 800 intlu DAILY ORAL 04/20/17 09:00 05/20/17 08:59 04/23/17 09:36 SRIKANTH ANAND M.D. Apr 23, 2017 12:23
--- NOTE | 2017-04-23 14:11 | General Progress Note ---
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 Objective Last 24 Hour Vital Signs Date Time Temp Pulse Resp B/P (MAP) Pulse Ox O2 Delivery O2 Flow Rate FiO2 04/23/17 12:00 97.9 77 20 144/82 100 Room Air 04/23/17 09:32 87 115/75 04/23/17 08:00 97.9 86 20 115/73 98 Room Air 04/23/17 04:01 97.5 82 20 135/65 100 Room Air 04/23/17 00:00 97.0 76 20 140/72 100 Room Air 04/22/17 20:55 84 140/80 04/22/17 19:59 97.9 84 20 140/80 99 Room Air 04/22/17 16:07 98.6 97 20 145/79 99 Room Air Intake and Output 04/23/17 04/24/17 19:00 07:00 Intake Total 75 ml Balance 75 ml IV Total 75 ml # Bowel Movements 2 Laboratory Tests 04/23/17 05:20: White Blood Count 7.1, Red Blood Count 2.99L, Hemoglobin 9.7L, Hematocrit 29.9L , Mean Corpuscular Volume 100H, Mean Corpuscular Hemoglobin 32.5H, Mean Corpuscular Hemoglobin Concent 32.5, Red Cell Distribution Width 14.4, Platelet Count 132L, Mean Platelet Volume 6.8, Neutrophils (%) (Auto) 70.1, Lymphocytes ( %) (Auto) 13.8L, Monocytes (%) (Auto) 11.3H, Eosinophils (%) (Auto) 2.8, Basophils (%) (Auto) 2.0, Sodium Level 143, Potassium Level 3.7, Chloride Level 108H, Carbon Dioxide Level 26, Anion Gap 9, Blood Urea Nitrogen 5L, Creatinine 1.3, Estimat Glomerular Filtration Rate , Glucose Level 92, Calcium Level 8.6, Ammonia < 3L Height (Feet): 6 Height (Inches): 1.00 Weight (Pounds): 197 Objective WDWN NCAT supple CTA RRR Soft NT ND no edema KHORRAMI,PAYMAN Apr 23, 2017 14:11
--- NOTE | 2017-04-23 15:23 | Internal Med Progress Note ---
Subjective Physician Name Jovani Villagomez Attending Physician Jovani Villagomez MD Current Medications Medications (Trade) Dose Ordered Sig/Antionette Route PRN Reason Start Time Stop Time Status Last Admin Dose Admin Acetaminophen (Tylenol) 650 mg Q4H PRN ORAL fever 04/12/17 15:45 05/12/17 15:44 Acetaminophen/ Hydrocodone Bitart ([place] 5/325) 1 tab Q6H PRN ORAL For Pain 04/20/17 17:45 04/27/17 17:44 Al Hydroxide/Mg Hydroxide (Mylanta II) 30 ml Q6H PRN ORAL dyspepsia 04/12/17 15:45 05/12/17 15:44 Allopurinol (Zyloprim) 300 mg DAILY ORAL 04/13/17 09:00 05/13/17 08:59 04/23/17 09:37 Amlodipine Besylate (Norvasc) 5 mg DAILY ORAL 04/13/17 09:00 05/13/17 08:59 04/22/17 08:55 Atorvastatin Calcium (Lipitor) 80 mg QHS ORAL 04/12/17 21:00 05/12/17 20:59 04/22/17 20:55 Chlorhexidine Gluconate (Lisette-Hex 2%) 1 applic DAILY@2000 TOPIC 04/15/17 20:00 05/15/17 19:59 04/22/17 20:54 Dextrose (Dextrose 50%) STAT PRN IV Hypoglycemia 04/12/17 15:45 05/12/17 15:44 Dextrose/Sodium Chloride 1,000 ml @ 75 mls/hr [id number] IV 04/12/17 17:45 05/12/17 17:44 04/23/17 06:16 Diphenoxylate HCl/ Atropine (Lomotil) 2.5 mg Q4H PRN ORAL Diarrhea 04/12/17 16:15 05/12/17 16:14 04/14/17 14:52 Ertapenem 1 gm/ Sodium Chloride 55 ml @ 110 mls/hr Q24H IVPB 04/14/17 18:00 04/27/17 23:59 04/22/17 17:09 Finasteride (Proscar) 5 mg DAILY ORAL 04/13/17 09:00 05/13/17 08:59 04/23/17 09:33 Heparin Sodium (Porcine) (Heparin 5000 units/ml) 5,000 units EVERY 12 HOURS SUBQ 04/12/17 21:00 05/12/17 20:59 Magnesium Oxide (Mag-Ox 400mg) 400 mg THREE TIMES A DAY ORAL 04/21/17 13:00 05/21/17 12:59 04/23/17 12:20 Metoprolol Tartrate (Lopressor) 25 mg Q12HR ORAL 04/12/17 21:00 05/12/17 20:59 04/23/17 09:32 Metronidazole (Flagyl) 500 mg Q8H ORAL 04/14/17 20:00 04/27/17 23:59 04/23/17 12:19 Nitroglycerin (Ntg) 0.4 mg Q5M X 3 DOSES PRN SL Prn Chest Pain 04/12/17 15:45 05/12/17 15:44 Nystatin (Nystop Powder) 1 applic BID TOPIC 04/20/17 21:00 05/20/17 20:59 04/23/17 09:38 Ondansetron HCl (Zofran) 4 mg Q6H PRN IVP Nausea & Vomiting 04/12/17 15:45 05/12/17 15:44 Promethazine HCl (Phenergan) 25 mg Q8H PRN IV refractory nausea 04/12/17 15:45 05/12/17 15:44 Ranitidine HCl (Zantac) 150 mg BEDTIME ORAL 04/13/17 21:00 05/13/17 20:59 04/22/17 20:55 Tamsulosin HCl (Flomax) 0.4 mg BID ORAL 04/12/17 18:00 05/12/17 17:59 04/23/17 09:31 Vancomycin HCl (Vancomycin) 250 mg FOUR TIMES A DAY ORAL 04/19/17 13:00 04/27/17 23:59 04/23/17 12:20 Vitamin D (Vitamin D) 800 intlu DAILY ORAL 04/20/17 09:00 05/20/17 08:59 04/23/17 09:36 Allergies: Coded Allergies: No Known Allergies (Unverified , 04/23/13) Subjective awake, responsive, NAD, speech slurs, very confusion, episode of loss consciousness with myoclonias. Objective Last Vital Signs Date Time Temp Pulse Resp B/P (MAP) Pulse Ox O2 Delivery O2 Flow Rate FiO2 11/18/17 12:00 97.9 77 20 144/82 100 Room Air Laboratory Tests Test 04/23/17 05:20 White Blood Count 7.1 K/UL (4.8-10.8) Red Blood Count 2.99 M/UL (4.70-6.10) L Hemoglobin 9.7 G/DL (14.2-18.0) L Hematocrit 29.9 % (42.0-52.0) L Mean Corpuscular Volume 100 FL (80-99) H Mean Corpuscular Hemoglobin 32.5 PG (27.0-31.0) H Mean Corpuscular Hemoglobin Concent 32.5 G/DL (32.0-36.0) Red Cell Distribution Width 14.4 % (11.6-14.8) Platelet Count 132 K/UL (150-450) L Mean Platelet Volume 6.8 FL (6.5-10.1) Neutrophils (%) (Auto) 70.1 % (45.0-75.0) Lymphocytes (%) (Auto) 13.8 % (20.0-45.0) L Monocytes (%) (Auto) 11.3 % (1.0-10.0) H Eosinophils (%) (Auto) 2.8 % (0.0-3.0) Basophils (%) (Auto) 2.0 % (0.0-2.0) Sodium Level 143 MMOL/L (136-145) Potassium Level 3.7 MMOL/L (3.5-5.1) Chloride Level 108 MMOL/L (98-107) H Carbon Dioxide Level 26 MMOL/L (21-32) Anion Gap 9 mmol/L (5-15) Blood Urea Nitrogen 5 mg/dL (7-18) L Creatinine 1.3 MG/DL (0.55-1.30) Estimat Glomerular Filtration Rate mL/min (>60) Glucose Level 92 MG/DL (74-106) Calcium Level 8.6 MG/DL (8.5-10.1) Ammonia < 3 umol/L (11.2-31.7) L Intake and Output 04/23/17 04/24/17 19:00 07:00 Intake Total 75 ml Balance 75 ml IV Total 75 ml # Bowel Movements 3 Objective General: No acute distress, awake and confuse, slurs speech. HEENT: NCAT, sclera anicteric, PERRL, EOMI. Neck: Supple, no significant jugular venous distention, Lungs: Good inspiratory effort, clear to auscultation bilaterally, no Wheeze or Rales. Heart: Regular rate and rhythm, normal S1/S2, no murmurs Abdomen: soft, nontender, nondistended. Normoactive bowel sounds. Extremities: No Cyanosis , clubbing or edema. RUE Piccline. Neuro: A&O x 3, Able to move all extremities Skin: warm, no rashes or lesions Psych: Normal mood and affect Assessment/Plan Assessment/Plan Extended spectrum beta-lactamases E. 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 History of recurrent C. diff colitis Multiple myeloma Under chemotherapy History of GI trach amyloidosis. History of appendicitis. History of intraabdominal abscess in 2014. Hypertension. Prostate cancer. TURP. CAD s/p CABG alter mental status possible medication induce Vs. seizure. PLAN: Abx: oral vancomycin, Flagyl and Invanz IV Monitor Labs Monitor blood culture On Imodium PRN F/U with ID recommendation transfer to Telemetry for Neurocheck Q4 MRI Brain: Chronic and age-related changes, as described, stable since 07/14/2015 Negative for acute intracranial bleed, mass effect, or infarct Old left cerebellar infarct, also previously described Sinus disease, slightly improved Jovani Villagomez MD Apr 23, 2017 15:22
[2017-04-23 16:00] VITALS: BP 155/56
[2017-04-23] MEDS ORDERED: Nitroglycerin Subl 0.4mg tab SL PRN (16:15)
[2017-04-23] MEDS ORDERED: Mylanta II UD 30ml ORAL PRN (16:30)
[2017-04-23] MEDS ORDERED: Norco 5mg/325mg tab ORAL PRN (16:30)
[2017-04-23] MEDS: Ertapenem 1 GM in NS 55 ML IVPB SCH (17:23)
[2017-04-23 20:00] VITALS: BP 127/77
[2017-04-23] MEDS: Dyna-Hex 2% Top Sol 2oz TOPIC SCH (21:15)
[2017-04-24] VITALS (7 sets, daily range): BP systolic 123–152; BP diastolic 66–82
[2017-04-24] MEDS: D5 1/2NS 1,000 ML IV SCH ×2 (06:18→21:08)
[2017-04-24] MEDS: metroNIDAZOLE 500mg tab ORAL SCH ×3 (06:19→22:00)
[2017-04-24] MEDS: Vancomycin oral 125mg/2.5ml ORAL SCH ×4 (08:47→21:08)
[2017-04-24] MEDS: Magnesium Oxide 400mg tab ORAL SCH ×3 (08:47→18:36)
[2017-04-24] MEDS: Metoprolol 25mg tab ORAL SCH ×2 (08:47→21:08)
[2017-04-24] MEDS: Vitamin D 400 INTLU TAB ORAL SCH (08:48)
[2017-04-24] MEDS: Tamsulosin 0.4mg cap ORAL SCH ×2 (08:48→18:36)
[2017-04-24] MEDS: Heparin 5000 units/ml inj SUBQ SCH ×2 (08:49→21:09)
[2017-04-24] MEDS: Nystatin Powder 100,000 units/gm 15gm TOPIC SCH ×2 (08:51→18:00)
--- NOTE | 2017-04-24 11:30 | General Progress Note ---
Assessment/Plan Assessment/Plan Assessment - h/o GI tract Amyloidosis - anemia - recurrent C Difficile Recommendations - abx - push po - follow symptoms Subjective Allergies: Coded Allergies: No Known Allergies (Unverified , 04/23/13) Subjective feels OK appears more confused sitter at bedside Objective Last 24 Hour Vital Signs Date Time Temp Pulse Resp B/P (MAP) Pulse Ox O2 Delivery O2 Flow Rate FiO2 04/24/17 08:48 86 140/78 04/24/17 08:47 86 140/78 04/24/17 08:00 97.7 86 20 140/78 97 Room Air 04/24/17 04:00 97.1 88 20 123/71 100 Room Air 04/24/17 04:00 75 04/24/17 00:00 97.0 67 18 140/70 100 Room Air 04/24/17 00:00 83 04/23/17 21:17 86 127/77 04/23/17 20:00 97.8 68 18 127/77 100 Room Air 04/23/17 20:00 92 04/23/17 16:00 97.8 94 18 155/56 98 Room Air 04/23/17 12:00 97.9 77 20 144/82 100 Room Air Intake and Output 04/24/17 04/25/17 19:00 07:00 # Voids 1 Height (Feet): 6 Height (Inches): 1.00 Weight (Pounds): 197 Objective WDWN NCAT supple CTA RRR Soft NT ND no edema VIOLA FOSTER Apr 24, 2017 11:30
--- NOTE | 2017-04-24 12:35 | Pulmonology Progress Note ---
Assessment/Plan Assessment/Plan ASSESSMENT UTI/E coli ESBL C dif colitis with hx of recurrent C dif colitis leukopenia-resolved ( likely due to chemo) MM, under chemo HTN CAD, s/p CABG anemia of chronic disease prostate Ca vit D deficiency acute toxic metabolic encephalopathy(multifactorial)- Hx of CVA e/lyte imbalance (hypo K, hypo Mg) GI amyloidosis PLAN OF CARE tele neuro checks q 4, no change MRI brain with evidence of old CVA no acute changes off Marinol, possibly contributing to anxiety and change in mental status off all mind altering mediations sitter at the bedside for safety neuro follows neuro input (EEG? to r/o seizure )-discussed with neuro, will see later today abx ID follows IVF Lomotil prn BP management with CCB and BB continue statin and ASA GI follows monitor HH, transfuse prn stool cx negative low residue diet, lactose free GI prophayxlsi vit D replacement abdominal US unremarkable monitor lytes and replace as needed , Mg stable after replacement, give additional KCL DVT prophylaxis PT/OT continue Flomax and Proscar case discussed and evaluated by supervising physician Subjective Allergies: Coded Allergies: No Known Allergies (Unverified , 04/23/13) Subjective patient was transferred to tele for neuro checks due to ALOC denies chest pain, SOB, abdominal pain denies discomfort no new onset of focal weakness afebrile, no leukocytosis sitter at the bedside for safety Objective Last 24 Hour Vital Signs Date Time Temp Pulse Resp B/P (MAP) Pulse Ox O2 Delivery O2 Flow Rate FiO2 04/24/17 11:49 97.9 84 20 128/74 95 Room Air 04/24/17 08:48 86 140/78 04/24/17 08:47 86 140/78 04/24/17 08:00 97.7 86 20 140/78 97 Room Air 04/24/17 04:00 97.1 88 20 123/71 100 Room Air 04/24/17 04:00 75 04/24/17 00:00 97.0 67 18 140/70 100 Room Air 04/24/17 00:00 83 04/23/17 21:17 86 127/77 04/23/17 20:00 97.8 68 18 127/77 100 Room Air 04/23/17 20:00 92 04/23/17 16:00 97.8 94 18 155/56 98 Room Air Intake and Output 04/24/17 04/25/17 19:00 07:00 # Voids 1 Objective General Appearance: no acute distress, confused, but able to answer question, speech garbled HEENT: normocephalic, atraumatic, no drooling, no facial drrop Respiratory/Chest: lungs clear, no respiratory distress, no accessory muscle use Cardiovascular: normal rate, no JVD, other - PICC intact Abdomen: normal bowel sounds, soft, non tender Extremities: no edema, MS 5/5 BUE and BLE , follows commands Neurologic/Psychiatric: abnormal gait, alert, responsive, garbled speech Musculoskeletal: atrophy - BLE Current Medications Medications (Trade) Dose Ordered Sig/Antionette Route PRN Reason Start Time Stop Time Status Last Admin Dose Admin Acetaminophen (Tylenol) 650 mg Q4H PRN ORAL fever 04/23/17 16:30 05/12/17 16:29 Acetaminophen/ Hydrocodone Bitart ([place] 5/325) 1 tab Q6H PRN ORAL For Pain 4-10 04/23/17 16:30 04/27/17 16:29 Al Hydroxide/Mg Hydroxide (Mylanta II) 30 ml Q6H PRN ORAL dyspepsia 04/23/17 16:30 05/12/17 16:29 Amlodipine Besylate (Norvasc) 5 mg DAILY ORAL 04/24/17 09:00 05/13/17 08:59 04/24/17 08:48 Chlorhexidine Gluconate (Lisette-Hex 2%) 1 applic DAILY@2000 TOPIC 04/23/17 20:00 05/15/17 19:59 04/23/17 21:15 Dextrose (Dextrose 50%) STAT PRN IV Hypoglycemia 04/23/17 16:30 05/23/17 16:29 Dextrose/Sodium Chloride 1,000 ml @ 75 mls/hr [id number] IV 04/23/17 17:00 05/12/17 16:59 04/24/17 06:18 Diphenoxylate HCl/ Atropine (Lomotil) 2.5 mg Q4H PRN ORAL Diarrhea 04/23/17 16:15 05/12/17 16:14 Ertapenem 1 gm/ Sodium Chloride 55 ml @ 110 mls/hr Q24H IVPB 04/23/17 18:00 04/27/17 23:59 04/23/17 17:23 Finasteride (Proscar) 5 mg DAILY ORAL 04/24/17 09:00 05/13/17 08:59 04/24/17 08:48 Heparin Sodium (Porcine) (Heparin 5000 units/ml) 5,000 units EVERY 12 HOURS SUBQ 04/23/17 21:00 05/12/17 20:59 04/23/17 21:19 Magnesium Oxide (Mag-Ox 400mg) 400 mg THREE TIMES A DAY ORAL 04/23/17 18:00 05/21/17 12:59 04/24/17 08:47 Metoprolol Tartrate (Lopressor) 25 mg Q12HR ORAL 04/23/17 21:00 05/12/17 20:59 04/24/17 08:47 Metronidazole (Flagyl) 500 mg Q8HR ORAL 04/23/17 22:00 04/30/17 21:59 04/24/17 06:19 Nitroglycerin (Ntg) 0.4 mg Q5M X 3 DOSES PRN SL Prn Chest Pain 04/23/17 16:15 05/12/17 15:44 Nystatin (Nystop Powder) 1 applic BID TOPIC 04/23/17 18:00 05/20/17 20:59 04/24/17 08:51 Ondansetron HCl (Zofran) 4 mg Q6H PRN IVP Nausea & Vomiting 04/23/17 16:30 05/12/17 16:29 Ranitidine HCl (Zantac) 150 mg BEDTIME ORAL 04/23/17 21:00 05/13/17 20:59 04/23/17 21:15 Tamsulosin HCl (Flomax) 0.4 mg BID ORAL 04/23/17 18:00 05/12/17 17:59 04/24/17 08:48 Vancomycin HCl (Vancomycin) 250 mg FOUR TIMES A DAY ORAL 04/23/17 18:00 04/27/17 23:59 04/24/17 08:47 Vitamin D (Vitamin D) 800 intlu DAILY ORAL 04/24/17 09:00 05/20/17 08:59 04/24/17 08:48 Aileen Alejandra NP ([facility]) Apr 24, 2017 12:35
--- NOTE | 2017-04-24 13:28 | Neurology Progress Note ---
Interim History Interim History ROS Limited/Unobtainable: Yes Complaints: confused Events: intermittently witnessedn arm leg irregular shaking , no LOC/very poor catrachita Objective Physical Exam Last Vital Signs Date Time Temp Pulse Resp B/P (MAP) Pulse Ox O2 Delivery O2 Flow Rate FiO2 04/24/17 11:49 97.9 84 20 128/74 95 Room Air General: well developed, no acute distress, other - ill appearing Head: normocophalic, atraumatic Neck: no rigidity Neurologic Exam Mental Status: awake, alert, other - very confused, slurred speech Speech: other - dysartria Language: other - worf finding Cranial Nerve II: no papilledema Cranial Nerves III, IV, : pupils Cranial Nerve V: masseters function normal Cranial Nerve VIII: no nystagmus Cranial Nerve IX: gag response Cranial Nerve XI: trapezii function normal Cranial Nerve XII: no tongue atrophy/fasciculations Motor System: strength 5/5 - limbs -5/5, other - slight tremors rigidity Sensory: other Coordination: other - clumsy FN Deep Tendon Reflexes: 1+ bicep (L), 1+ bicep (R), 1+ tricep (L), 1+ tricep (R) , 1+ brachioradialis (L), 1+ brachioradialis (R), 1+ knee (L), 1+ knee (R), 1+ ankle (L), 1+ ankle (R) Reflexes: mute plantar (L), mute plantar (R) Impression/Recommendations Problems: (1) toxic metabolic encephalopathy,multifactorial (2) HTN (hypertension) (3) Multiple myeloma (4) Prostate cancer (5) Chronic pain syndrome (6) intermittent generalised tremors without LOC Status: stable, progressing Recommendations #[id number] d/c unessential meds EEG clonopin 0.25 bid JOSE FRANCOIS Apr 24, 2017 13:28
[2017-04-24] MEDS: clonazePAM 0.5mg tab ORAL SCH ×2 (13:52→18:37)
--- NOTE | 2017-04-24 14:42 | Internal Med Progress Note ---
Subjective Physician Name Jovani Villagomez Attending Physician Jovani Villagomez MD Current Medications Medications (Trade) Dose Ordered Sig/Antionette Route PRN Reason Start Time Stop Time Status Last Admin Dose Admin Acetaminophen (Tylenol) 650 mg Q4H PRN ORAL fever 04/23/17 16:30 05/12/17 16:29 Acetaminophen/ Hydrocodone Bitart ([place] 5/325) 1 tab Q6H PRN ORAL For Pain 4-10 04/23/17 16:30 04/27/17 16:29 Al Hydroxide/Mg Hydroxide (Mylanta II) 30 ml Q6H PRN ORAL dyspepsia 04/23/17 16:30 05/12/17 16:29 Amlodipine Besylate (Norvasc) 5 mg DAILY ORAL 04/24/17 09:00 05/13/17 08:59 04/24/17 08:48 Chlorhexidine Gluconate (Lisette-Hex 2%) 1 applic DAILY@2000 TOPIC 04/23/17 20:00 05/15/17 19:59 04/23/17 21:15 Clonazepam (KlonoPIN) 0.25 mg BID ORAL 04/24/17 13:45 05/01/17 13:44 04/24/17 13:52 Dextrose (Dextrose 50%) STAT PRN IV Hypoglycemia 04/23/17 16:30 05/23/17 16:29 Dextrose/Sodium Chloride 1,000 ml @ 75 mls/hr [id number] IV 04/23/17 17:00 05/12/17 16:59 04/24/17 06:18 Diphenoxylate HCl/ Atropine (Lomotil) 2.5 mg Q4H PRN ORAL Diarrhea 04/23/17 16:15 05/12/17 16:14 Ertapenem 1 gm/ Sodium Chloride 55 ml @ 110 mls/hr Q24H IVPB 04/23/17 18:00 04/27/17 23:59 04/23/17 17:23 Finasteride (Proscar) 5 mg DAILY ORAL 04/24/17 09:00 05/13/17 08:59 04/24/17 08:48 Heparin Sodium (Porcine) (Heparin 5000 units/ml) 5,000 units EVERY 12 HOURS SUBQ 04/23/17 21:00 05/12/17 20:59 04/23/17 21:19 Magnesium Oxide (Mag-Ox 400mg) 400 mg THREE TIMES A DAY ORAL 04/23/17 18:00 05/21/17 12:59 04/24/17 13:52 Metoprolol Tartrate (Lopressor) 25 mg Q12HR ORAL 04/23/17 21:00 05/12/17 20:59 04/24/17 08:47 Metronidazole (Flagyl) 500 mg Q8HR ORAL 04/23/17 22:00 04/30/17 21:59 04/24/17 13:53 Nitroglycerin (Ntg) 0.4 mg Q5M X 3 DOSES PRN SL Prn Chest Pain 04/23/17 16:15 05/12/17 15:44 Nystatin (Nystop Powder) 1 applic BID TOPIC 04/23/17 18:00 05/20/17 20:59 04/24/17 08:51 Ondansetron HCl (Zofran) 4 mg Q6H PRN IVP Nausea & Vomiting 04/23/17 16:30 05/12/17 16:29 Ranitidine HCl (Zantac) 150 mg BEDTIME ORAL 04/23/17 21:00 05/13/17 20:59 04/23/17 21:15 Tamsulosin HCl (Flomax) 0.4 mg BID ORAL 04/23/17 18:00 05/12/17 17:59 04/24/17 08:48 Vancomycin HCl (Vancomycin) 250 mg FOUR TIMES A DAY ORAL 04/23/17 18:00 04/27/17 23:59 04/24/17 13:53 Vitamin D (Vitamin D) 800 intlu DAILY ORAL 04/24/17 09:00 05/20/17 08:59 04/24/17 08:48 Allergies: Coded Allergies: No Known Allergies (Unverified , 04/23/13) Subjective awake, responsive, NAD, speech slurs, very confusion, involuntary extremities movements. Objective Last Vital Signs Date Time Temp Pulse Resp B/P (MAP) Pulse Ox O2 Delivery O2 Flow Rate FiO2 04/24/17 11:49 97.9 84 20 128/74 95 Room Air Intake and Output 04/24/17 04/25/17 19:00 07:00 # Voids 1 Objective General: No acute distress, awake and confuse, slurs speech. HEENT: NCAT, sclera anicteric, PERRL, EOMI. Neck: Supple, no significant jugular venous distention, Lungs: fair inspiratory effort, clear to auscultation bilaterally, no Wheeze or Rales. Heart: Regular rate and rhythm, normal S1/S2, no murmurs Abdomen: soft, nontender, nondistended. Normoactive bowel sounds. Extremities: No Cyanosis , clubbing or edema. RUE Piccline. Neuro: A&O x 2, Able to move all extremities but involuntary. Skin: warm, no rashes or lesions Psych: Normal mood and affect Assessment/Plan Assessment/Plan Extended spectrum beta-lactamases E. 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 History of recurrent C. diff colitis Multiple myeloma Under chemotherapy History of GI trach amyloidosis. History of appendicitis. History of intraabdominal abscess in 2014. Hypertension. Prostate cancer. TURP. CAD s/p CABG alter mental status / Delirious PLAN: Abx: oral vancomycin, Flagyl and Invanz IV Monitor Labs Monitor blood culture On Imodium PRN F/U with Neurology recommendation in Telemetry with Neurocheck Q4 MRI Brain: Chronic and age-related changes, as described, stable since 07/14/2015 Negative for acute intracranial bleed, mass effect, or infarct Old left cerebellar infarct, also previously described Sinus disease, slightly improved Jovani Villagomez MD Apr 24, 2017 14:42
[2017-04-24] MEDS: Ertapenem 1 GM in NS 55 ML IVPB SCH (18:35)
[2017-04-24] MEDS: Dyna-Hex 2% Top Sol 2oz TOPIC SCH (20:56)
--- NOTE | 2017-04-24 23:52 | Geriatric Progress Note ---
Subjective Interval Events 04/23/17 Geriatric Geriatric Last 24 Hour Vital Signs Date Time Temp Pulse Resp B/P (MAP) Pulse Ox O2 Delivery O2 Flow Rate FiO2 04/24/17 23:37 97.6 79 19 132/66 96 Room Air 04/24/17 21:08 100 140/70 04/24/17 19:37 97.6 100 19 140/70 96 04/24/17 16:06 97.2 88 20 135/70 95 Room Air 04/24/17 16:00 86 04/24/17 11:49 97.9 84 20 128/74 95 Room Air 04/24/17 08:48 86 140/78 04/24/17 08:47 86 140/78 04/24/17 08:00 97.7 86 20 140/78 97 Room Air 04/24/17 04:00 97.1 88 20 123/71 100 Room Air 04/24/17 04:00 75 04/24/17 00:00 97.0 67 18 140/70 100 Room Air 04/24/17 00:00 83 Intake and Output 04/24/17 04/25/17 19:00 07:00 Intake Total 525 ml 75 ml Balance 525 ml 75 ml IV Total 525 ml 75 ml # Voids 2 Current Medications Medications (Trade) Dose Ordered Sig/Antionette Route PRN Reason Start Time Stop Time Status Last Admin Dose Admin Acetaminophen (Tylenol) 650 mg Q4H PRN ORAL fever 04/23/17 16:30 05/12/17 16:29 Acetaminophen/ Hydrocodone Bitart ([place] 5/325) 1 tab Q6H PRN ORAL For Pain 4-10 04/23/17 16:30 04/27/17 16:29 Al Hydroxide/Mg Hydroxide (Mylanta II) 30 ml Q6H PRN ORAL dyspepsia 04/23/17 16:30 05/12/17 16:29 Amlodipine Besylate (Norvasc) 5 mg DAILY ORAL 04/24/17 09:00 05/13/17 08:59 04/24/17 08:48 Chlorhexidine Gluconate (Lisette-Hex 2%) 1 applic DAILY@1999 TOPIC 04/23/17 20:00 05/15/17 19:59 04/24/17 20:56 Clonazepam (KlonoPIN) 0.25 mg BID ORAL 04/24/17 13:45 05/01/17 13:44 04/24/17 18:37 Dextrose (Dextrose 50%) STAT PRN IV Hypoglycemia 04/23/17 16:30 05/23/17 16:29 Dextrose/Sodium Chloride 1,000 ml @ 75 mls/hr [id number] IV 04/23/17 17:00 05/12/17 16:59 04/24/17 21:08 Diphenoxylate HCl/ Atropine (Lomotil) 2.5 mg Q4H PRN ORAL Diarrhea 04/23/17 16:15 05/12/17 16:14 Ertapenem 1 gm/ Sodium Chloride 55 ml @ 110 mls/hr Q24H IVPB 04/23/17 18:00 04/27/17 23:59 04/24/17 18:35 Finasteride (Proscar) 5 mg DAILY ORAL 04/24/17 09:00 05/13/17 08:59 04/24/17 08:48 Heparin Sodium (Porcine) (Heparin 5000 units/ml) 5,000 units EVERY 12 HOURS SUBQ 04/23/17 21:00 05/12/17 20:59 04/24/17 21:09 Magnesium Oxide (Mag-Ox 400mg) 400 mg THREE TIMES A DAY ORAL 04/23/17 18:00 05/21/17 12:59 04/24/17 18:36 Metoprolol Tartrate (Lopressor) 25 mg Q12HR ORAL 04/23/17 21:00 05/12/17 20:59 04/24/17 21:08 Metronidazole (Flagyl) 500 mg Q8HR ORAL 04/23/17 22:00 04/30/17 21:59 04/24/17 13:53 Nitroglycerin (Ntg) 0.4 mg Q5M X 3 DOSES PRN SL Prn Chest Pain 04/23/17 16:15 05/12/17 15:44 Nystatin (Nystop Powder) 1 applic BID TOPIC 04/23/17 18:00 05/20/17 20:59 04/24/17 08:51 Ondansetron HCl (Zofran) 4 mg Q6H PRN IVP Nausea & Vomiting 04/23/17 16:30 05/12/17 16:29 Ranitidine HCl (Zantac) 150 mg BEDTIME ORAL 04/23/17 21:00 05/13/17 20:59 04/24/17 21:07 Tamsulosin HCl (Flomax) 0.4 mg BID ORAL 04/23/17 18:00 05/12/17 17:59 04/24/17 18:36 Vancomycin HCl (Vancomycin) 250 mg FOUR TIMES A DAY ORAL 04/23/17 18:00 04/27/17 23:59 04/24/17 21:08 Vitamin D (Vitamin D) 800 intlu DAILY ORAL 04/24/17 09:00 05/20/17 08:59 04/24/17 08:48 Height (Feet): 6 Height (Inches): 1.00 Weight (Pounds): 197 Arelis Leonard M.D. Apr 24, 2017 23:52
[2017-04-25 03:30] VITALS: BP 135/74
[2017-04-25] MEDS: metroNIDAZOLE 500mg tab ORAL SCH ×3 (05:55→22:25)
[2017-04-25 08:00] VITALS: BP 135/68
[2017-04-25] MEDS: Magnesium Oxide 400mg tab ORAL SCH (09:00)
[2017-04-25] MEDS: clonazePAM 0.5mg tab ORAL SCH ×2 (09:00→17:53)
[2017-04-25] MEDS: Tamsulosin 0.4mg cap ORAL SCH ×2 (09:00→17:53)
[2017-04-25] MEDS: Nystatin Powder 100,000 units/gm 15gm TOPIC SCH ×2 (09:00→17:53)
[2017-04-25] MEDS: Vancomycin oral 125mg/2.5ml ORAL SCH ×4 (09:00→21:29)
[2017-04-25] MEDS: D5 1/2NS 1,000 ML IV SCH ×2 (09:00→22:22)
[2017-04-25] MEDS: Heparin 5000 units/ml inj SUBQ SCH ×2 (09:00→21:00)
[2017-04-25] MEDS: Vitamin D 400 INTLU TAB ORAL SCH (09:00)
--- NOTE | 2017-04-25 09:36 | Infectious Diseases Prog Note ---
Assessment/Plan Assessment/Plan ASSESSMENT: The patient is a 76-year-old male with: Extended spectrum beta-lactamases E. coli urinary tract UTI Diarrhea due to recurrent C Diff improving History of recurrent Clostridium difficile.( recent +ve 03/29/17) Leukopenia. Afebrile. History of multiple myeloma on chemo. History of GI trach amyloidosis. History of appendicitis. History of intraabdominal abscess in 2014. Hypertension. Prostate cancer. TURP. CAD. CABG PLAN: Cont pt on oral vancomycin , Flagyl and Invanz day # -after completions of IV abx, will extend PO vancomycin for 7 more days Monitor CBC Monitor BMP Subjective Allergies: Coded Allergies: No Known Allergies (Unverified , 04/23/13) Subjective afebrile Objective Vital Signs Last 24 Hour Vital Signs Date Time Temp Pulse Resp B/P (MAP) Pulse Ox O2 Delivery O2 Flow Rate FiO2 04/25/17 08:00 98.1 84 19 135/68 99 Room Air 04/25/17 04:00 76 04/25/17 03:30 97.6 76 19 135/74 96 Room Air 04/25/17 00:00 94 04/24/17 23:37 97.6 79 19 132/66 96 Room Air 04/24/17 21:08 100 140/70 04/24/17 20:00 80 04/24/17 19:37 97.6 100 19 140/70 96 04/24/17 16:06 97.2 88 20 135/70 95 Room Air 04/24/17 16:00 86 04/24/17 11:49 97.9 84 20 128/74 95 Room Air Height (Feet): 6 Height (Inches): 1.00 Weight (Pounds): 197 Objective General Appearance: WD/WN, no apparent distress HEENT: normocephalic, anicteric Neck: non-tender, normal alignment Respiratory/Chest: chest wall non-tender, lungs clear Cardiovascular/Chest: normal rate, regular rhythm Abdomen: non tender, soft Genitourinary/Rectal: normal genital exam, normal rectal exam Extremities: normal range of motion, non-pitting Current Medications Medications (Trade) Dose Ordered Sig/Antionetet Route PRN Reason Start Time Stop Time Status Last Admin Dose Admin Acetaminophen (Tylenol) 650 mg Q4H PRN ORAL fever 04/23/17 16:30 05/12/17 16:29 Acetaminophen/ Hydrocodone Bitart ([place] 5/325) 1 tab Q6H PRN ORAL For Pain 4-10 04/23/17 16:30 04/27/17 16:29 Al Hydroxide/Mg Hydroxide (Mylanta II) 30 ml Q6H PRN ORAL dyspepsia 04/23/17 16:30 05/12/17 16:29 Amlodipine Besylate (Norvasc) 5 mg DAILY ORAL 04/24/17 09:00 05/13/17 08:59 04/24/17 08:48 Chlorhexidine Gluconate (Lisette-Hex 2%) 1 applic DAILY@2000 TOPIC 04/23/17 20:00 05/15/17 19:59 04/24/17 20:56 Clonazepam (KlonoPIN) 0.25 mg BID ORAL 04/24/17 13:45 05/01/17 13:44 04/24/17 18:37 Dextrose (Dextrose 50%) STAT PRN IV Hypoglycemia 04/23/17 16:30 05/23/17 16:29 Dextrose/Sodium Chloride 1,000 ml @ 75 mls/hr [id number] IV 04/23/17 17:00 05/12/17 16:59 04/24/17 21:08 Diphenoxylate HCl/ Atropine (Lomotil) 2.5 mg Q4H PRN ORAL Diarrhea 04/23/17 16:15 05/12/17 16:14 Ertapenem 1 gm/ Sodium Chloride 55 ml @ 110 mls/hr Q24H IVPB 04/23/17 18:00 04/27/17 23:59 04/24/17 18:35 Finasteride (Proscar) 5 mg DAILY ORAL 04/24/17 09:00 05/13/17 08:59 04/24/17 08:48 Heparin Sodium (Porcine) (Heparin 5000 units/ml) 5,000 units EVERY 12 HOURS SUBQ 04/23/17 21:00 05/12/17 20:59 04/24/17 21:09 Magnesium Oxide (Mag-Ox 400mg) 400 mg THREE TIMES A DAY ORAL 04/23/17 18:00 05/21/17 12:59 04/24/17 18:36 Metoprolol Tartrate (Lopressor) 25 mg Q12HR ORAL 04/23/17 21:00 05/12/17 20:59 04/24/17 21:08 Metronidazole (Flagyl) 500 mg Q8HR ORAL 04/23/17 22:00 04/30/17 21:59 04/25/17 05:55 Nitroglycerin (Ntg) 0.4 mg Q5M X 3 DOSES PRN SL Prn Chest Pain 04/23/17 16:15 05/12/17 15:44 Nystatin (Nystop Powder) 1 applic BID TOPIC 04/23/17 18:00 05/20/17 20:59 04/24/17 08:51 Ondansetron HCl (Zofran) 4 mg Q6H PRN IVP Nausea & Vomiting 04/23/17 16:30 05/12/17 16:29 Ranitidine HCl (Zantac) 150 mg BEDTIME ORAL 04/23/17 21:00 05/13/17 20:59 04/24/17 21:07 Tamsulosin HCl (Flomax) 0.4 mg BID ORAL 04/23/17 18:00 05/12/17 17:59 04/24/17 18:36 Vancomycin HCl (Vancomycin) 250 mg FOUR TIMES A DAY ORAL 04/23/17 18:00 04/27/17 23:59 04/24/17 21:08 Vitamin D (Vitamin D) 800 intlu DAILY ORAL 04/24/17 09:00 05/20/17 08:59 04/24/17 08:48 Yaima Nguyễn M.D. Apr 25, 2017 09:36
[2017-04-25] MEDS: Metoprolol 25mg tab ORAL SCH ×2 (09:44→21:29)
--- NOTE | 2017-04-25 10:38 | GI Progress Note ---
Assessment/Plan Problems: (1) Chemotherapy-induced diarrhea ICD Codes: K52.1 - Toxic gastroenteritis and colitis; T45.1X5A - Adverse effect of antineoplastic and immunosuppressive drugs, initial encounter SNOMED: 859765182, [id number] (2) Clostridium difficile colitis ICD Codes: A04.7 - Enterocolitis due to Clostridium difficile SNOMED: 871210990 (3) Anemia ICD Codes: D64.9 - Anemia SNOMED: 631836228 (4) Clostridium difficile diarrhea ICD Codes: A04.72 - Enterocolitis due to Clostridium difficile, not specified as recurrent SNOMED: 7100159372546 (5) Amyloidosis ICD Codes: E85.9 - Amyloidosis, unspecified SNOMED: 56255903 Status: not improved, unchanged Status Narrative Discussed with Dr. Flores. Assessment/Plan s/p EGD/colonoscopy 2015 >> amyloidosis stool culture normal folate/B12 WNL Vit D deficiency abdominal U/S unremarkable PICC in place ammonia low abx monitor H&H, prn transfusions low residual/fiber diet / lactose free diet >> push PO IV hydration + electrolyte replacement lomotil prn H2B fu labs Vit D daily Subjective Subjective limited Objective Last 24 Hour Vital Signs Date Time Temp Pulse Resp B/P (MAP) Pulse Ox O2 Delivery O2 Flow Rate FiO2 04/25/17 09:44 84 135/68 04/25/17 09:00 84 135/68 04/25/17 08:00 98.1 84 19 135/68 99 Room Air 04/25/17 04:00 76 04/25/17 03:30 97.6 76 19 135/74 96 Room Air 04/25/17 00:00 94 04/24/17 23:37 97.6 79 19 132/66 96 Room Air 04/24/17 21:08 100 140/70 04/24/17 20:00 80 04/24/17 19:37 97.6 100 19 140/70 96 04/24/17 16:06 97.2 88 20 135/70 95 Room Air 04/24/17 16:00 86 04/24/17 11:49 97.9 84 20 128/74 95 Room Air Intake and Output 04/25/17 04/26/17 18:59 06:59 Intake Total 75 ml Balance 75 ml IV Total 75 ml Height (Feet): 6 Height (Inches): 1.00 Weight (Pounds): 197 General Appearance: no apparent distress, alert, confused, other - slurred speech Cardiovascular: normal rate Respiratory/Chest: normal breath sounds, no respiratory distress Abdominal Exam: normal bowel sounds, non tender, soft Extremities: non-tender Domenica Chanel N.P. Apr 25, 2017 10:38
[2017-04-25 12:00] VITALS: BP 131/73
--- NOTE | 2017-04-25 13:07 | Pulmonology Progress Note ---
Assessment/Plan Problems: (1) Sepsis (2) Multiple myeloma (3) UTI (urinary tract infection) (4) C. difficile colitis (5) Hypertension (6) intermittent generalised tremors without LOC Assessment/Plan involuntary movements were stopped still lethargic dc unessential meds contine abx as per ID Neuro note appreciated consider palliative care, b/o hx of MM, persistent diarrhea, CVA, ? Subjective ROS Limited/Unobtainable: No Interval Events: somnolent, trasferred to teli b/o aloc Allergies: Coded Allergies: No Known Allergies (Unverified , 04/23/13) Objective Last 24 Hour Vital Signs Date Time Temp Pulse Resp B/P (MAP) Pulse Ox O2 Delivery O2 Flow Rate FiO2 04/25/17 12:00 98.1 73 19 131/73 99 Room Air 04/25/17 09:44 84 135/68 04/25/17 09:00 84 135/68 04/25/17 08:00 98.1 84 19 135/68 99 Room Air 04/25/17 04:00 76 04/25/17 03:30 97.6 76 19 135/74 96 Room Air 04/25/17 00:00 94 04/24/17 23:37 97.6 79 19 132/66 96 Room Air 04/24/17 21:08 100 140/70 04/24/17 20:00 80 04/24/17 19:37 97.6 100 19 140/70 96 04/24/17 16:06 97.2 88 20 135/70 95 Room Air 04/24/17 16:00 86 Intake and Output 04/25/17 04/26/17 19:00 07:00 Intake Total 120 ml Balance 120 ml Intake Oral 120 ml # Bowel Movements 3 Objective General Appearance: WD/WN, no apparent distress Lines, tubes and drains: peripheral, HEENT: normocephalic, anicteric Neck: non-tender, normal alignment Respiratory/Chest: chest wall non-tender, lungs clear Cardiovascular/Chest: normal rate, regular rhythm Abdomen: non tender, soft Genitourinary/Rectal: normal genital exam, normal rectal exam Extremities: normal range of motion, non-pitting Current Medications Medications (Trade) Dose Ordered Sig/Antionette Route PRN Reason Start Time Stop Time Status Last Admin Dose Admin Acetaminophen (Tylenol) 650 mg Q4H PRN ORAL fever 04/23/17 16:30 05/12/17 16:29 Acetaminophen/ Hydrocodone Bitart ([place] 5/325) 1 tab Q6H PRN ORAL For Pain 4-10 04/23/17 16:30 04/27/17 16:29 Al Hydroxide/Mg Hydroxide (Mylanta II) 30 ml Q6H PRN ORAL dyspepsia 04/23/17 16:30 05/12/17 16:29 Amlodipine Besylate (Norvasc) 5 mg DAILY ORAL 04/24/17 09:00 05/13/17 08:59 04/25/17 09:00 Chlorhexidine Gluconate (Lisette-Hex 2%) 1 applic DAILY@2000 TOPIC 04/23/17 20:00 05/15/17 19:59 04/24/17 20:56 Clonazepam (KlonoPIN) 0.25 mg BID ORAL 04/24/17 13:45 05/01/17 13:44 04/25/17 09:00 Dextrose (Dextrose 50%) STAT PRN IV Hypoglycemia 04/23/17 16:30 05/23/17 16:29 Dextrose/Sodium Chloride 1,000 ml @ 75 mls/hr [id number] IV 04/23/17 17:00 05/12/17 16:59 04/25/17 09:00 Diphenoxylate HCl/ Atropine (Lomotil) 2.5 mg Q4H PRN ORAL Diarrhea 04/23/17 16:15 05/12/17 16:14 Ertapenem 1 gm/ Sodium Chloride 55 ml @ 110 mls/hr Q24H IVPB 04/23/17 18:00 04/27/17 23:59 04/24/17 18:35 Finasteride (Proscar) 5 mg DAILY ORAL 04/24/17 09:00 05/13/17 08:59 04/25/17 09:00 Heparin Sodium (Porcine) (Heparin 5000 units/ml) 5,000 units EVERY 12 HOURS SUBQ 04/23/17 21:00 05/12/17 20:59 04/24/17 21:09 Magnesium Oxide (Mag-Ox 400mg) 400 mg THREE TIMES A DAY ORAL 04/23/17 18:00 05/21/17 12:59 04/25/17 09:00 Metoprolol Tartrate (Lopressor) 25 mg Q12HR ORAL 04/23/17 21:00 05/12/17 20:59 04/25/17 09:44 Metronidazole (Flagyl) 500 mg Q8HR ORAL 04/23/17 22:00 04/30/17 21:59 04/25/17 05:55 Nitroglycerin (Ntg) 0.4 mg Q5M X 3 DOSES PRN SL Prn Chest Pain 04/23/17 16:15 05/12/17 15:44 Nystatin (Nystop Powder) 1 applic BID TOPIC 04/23/17 18:00 05/20/17 20:59 04/25/17 09:00 Ondansetron HCl (Zofran) 4 mg Q6H PRN IVP Nausea & Vomiting 04/23/17 16:30 05/12/17 16:29 Ranitidine HCl (Zantac) 150 mg BEDTIME ORAL 04/23/17 21:00 05/13/17 20:59 04/24/17 21:07 Tamsulosin HCl (Flomax) 0.4 mg BID ORAL 04/23/17 18:00 05/12/17 17:59 04/25/17 09:00 Vancomycin HCl (Vancomycin) 250 mg FOUR TIMES A DAY ORAL 04/23/17 18:00 04/27/17 23:59 04/25/17 09:00 Vitamin D (Vitamin D) 800 intlu DAILY ORAL 04/24/17 09:00 05/20/17 08:59 04/25/17 09:00 GOLDEN LIM Apr 25, 2017 13:07
[2017-04-25 16:09] VITALS: BP 140/78
[2017-04-25] MEDS: Dyna-Hex 2% Top Sol 2oz TOPIC SCH (16:39)
[2017-04-25] MEDS: Ertapenem 1 GM in NS 55 ML IVPB SCH (17:53)
--- NOTE | 2017-04-25 18:54 | Internal Med Progress Note ---
Subjective Date of Service: Apr 25, 2017 Physician Name Elias,Elly Attending Physician Jovani Villagomez MD Current Medications Medications (Trade) Dose Ordered Sig/Antionette Route PRN Reason Start Time Stop Time Status Last Admin Dose Admin Acetaminophen (Tylenol) 650 mg Q4H PRN ORAL fever 04/23/17 16:30 05/12/17 16:29 Acetaminophen/ Hydrocodone Bitart ([place] 5/325) 1 tab Q6H PRN ORAL For Pain 4-10 04/23/17 16:30 04/27/17 16:29 Amlodipine Besylate (Norvasc) 5 mg DAILY ORAL 04/24/17 09:00 05/13/17 08:59 04/25/17 09:00 Chlorhexidine Gluconate (Lisette-Hex 2%) 1 applic DAILY@2000 TOPIC 04/23/17 20:00 05/15/17 19:59 04/25/17 16:39 Clonazepam (KlonoPIN) 0.25 mg BID ORAL 04/24/17 13:45 05/01/17 13:44 04/25/17 17:53 Dextrose (Dextrose 50%) STAT PRN IV Hypoglycemia 04/23/17 16:30 05/23/17 16:29 Dextrose/Sodium Chloride 1,000 ml @ 75 mls/hr [id number] IV 04/23/17 17:00 05/12/17 16:59 04/25/17 09:00 Diphenoxylate HCl/ Atropine (Lomotil) 2.5 mg Q4H PRN ORAL Diarrhea 04/23/17 16:15 05/12/17 16:14 Ertapenem 1 gm/ Sodium Chloride 55 ml @ 110 mls/hr Q24H IVPB 04/23/17 18:00 04/27/17 23:59 04/25/17 17:53 Finasteride (Proscar) 5 mg DAILY ORAL 04/24/17 09:00 05/13/17 08:59 04/25/17 09:00 Heparin Sodium (Porcine) (Heparin 5000 units/ml) 5,000 units EVERY 12 HOURS SUBQ 04/23/17 21:00 05/12/17 20:59 04/24/17 21:09 Metoprolol Tartrate (Lopressor) 25 mg Q12HR ORAL 04/23/17 21:00 05/12/17 20:59 04/25/17 09:44 Metronidazole (Flagyl) 500 mg Q8HR ORAL 04/23/17 22:00 04/30/17 21:59 04/25/17 16:39 Nitroglycerin (Ntg) 0.4 mg Q5M X 3 DOSES PRN SL Prn Chest Pain 04/23/17 16:15 05/12/17 15:44 Nystatin (Nystop Powder) 1 applic BID TOPIC 04/23/17 18:00 05/20/17 20:59 04/25/17 17:53 Ondansetron HCl (Zofran) 4 mg Q6H PRN IVP Nausea & Vomiting 04/23/17 16:30 05/12/17 16:29 Tamsulosin HCl (Flomax) 0.4 mg BID ORAL 04/23/17 18:00 05/12/17 17:59 04/25/17 17:53 Vancomycin HCl (Vancomycin) 250 mg FOUR TIMES A DAY ORAL 04/23/17 18:00 04/27/17 23:59 04/25/17 17:53 Allergies: Coded Allergies: No Known Allergies (Unverified , 04/23/13) ROS Limited/Unobtainable: Yes Subjective 76 YO M admitted with left lower quadrant pain. Now UTI. Cover for Int Med-Dr Villagomez.. Patient confused Objective Last Vital Signs Date Time Temp Pulse Resp B/P (MAP) Pulse Ox O2 Delivery O2 Flow Rate FiO2 04/25/17 16:09 97.5 71 19 140/78 97 Room Air Intake and Output 04/25/17 04/26/17 19:00 07:00 Intake Total 360 ml Balance 360 ml Intake Oral 240 ml Other 120 ml # Voids 2 # Bowel Movements 5 Objective General Appearance: WD/WN, no apparent distress, alert EENT: PERRL/EOMI, normal ENT inspection, TMs normal Neck: non-tender, normal alignment, supple, normal inspection Cardiovascular: normal peripheral pulses, normal rate, regular rhythm, no gallop/murmur, no JVD Respiratory/Chest: chest wall non-tender, lungs clear, normal breath sounds, no respiratory distress, no accessory muscle use Abdomen: normal bowel sounds, soft, no organomegaly, guarding, rebound, tender Extremities: normal range of motion, non-tender 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 Coli-Multi drug resistant. See ID note. Continue ertapenem (3) Clostridium difficile colitis Assessment & Plan: Continue vanco and flagyl. See GI note (4) Amyloidosis Assessment & Plan: GI-see gastroenterology note (5) Multiple myeloma (6) HTN (hypertension) Assessment & Plan: Cont norvasc and lopressor (7) Anemia (8) CAD (coronary artery disease) (9) BPH (benign prostatic hyperplasia) (10) Confused Assessment & Plan: Toxic metabolic encephalopathy. See Neuro consult note. Status: not improved ELLY ELIAS Apr 25, 2017 18:54
[2017-04-25 20:00] VITALS: BP 134/78
[2017-04-26 00:56] VITALS: BP 135/72
[2017-04-26 04:31] VITALS: BP 136/71
[2017-04-26] MEDS: metroNIDAZOLE 500mg tab ORAL SCH ×3 (05:57→21:52)
[2017-04-26 06:38] LABS: BASOPHILS % (AUTO) 2.2 % (0.0-2.0); EOSINOPHILS % (AUTO) 3.5 % (0.0-3.0); LYMPHOCYTES % (AUTO) 14.6 % (20.0-45.0); MEAN CORPUSCULAR HEMOGLOBIN 32.5 PG (27.0-31.0); MEAN CORPUSCULAR HGB CONC 32.5 G/DL (32.0-36.0); MEAN CORPUSCULAR VOLUME 100 FL (80-99); MEAN PLATELET VOLUME 5.5 FL (6.5-10.1); MONOCYTES % (AUTO) 11.9 % (1.0-10.0); NEUTROPHILS % (AUTO) 67.8 % (45.0-75.0); PLATELET COUNT 165 K/UL (150-450); RED BLOOD COUNT 3.19 M/UL (4.70-6.10); RED CELL DISTRIBUTION WIDTH 14.3 % (11.6-14.8); WHITE BLOOD COUNT 6.6 K/UL (4.8-10.8)
[2017-04-26 06:49] LABS: ALANINE AMINOTRANSFERASE 21 U/L (12-78); ALBUMIN/GLOBULIN RATIO 1.3 (1.0-2.7); ANION GAP 8 mmol/L (5-15); ASPARTATE AMINO TRANSFERASE 33 U/L (15-37); CALCIUM 8.4 MG/DL (8.5-10.1); CARBON DIOXIDE 28 MMOL/L (21-32); CHLORIDE 106 MMOL/L (98-107); CREATININE 1.2 MG/DL (0.55-1.30); POTASSIUM 3.1 MMOL/L (3.5-5.1); SODIUM 142 MMOL/L (136-145); TOTAL PROTEIN 5.6 G/DL (6.4-8.2)
[2017-04-26 08:00] VITALS: BP 153/75
[2017-04-26] MEDS: Metoprolol 25mg tab ORAL SCH ×2 (10:58→21:51)
[2017-04-26] MEDS: Vancomycin oral 125mg/2.5ml ORAL SCH ×4 (10:59→21:53)
[2017-04-26] MEDS: clonazePAM 0.5mg tab ORAL SCH ×2 (10:59→17:57)
[2017-04-26] MEDS: Tamsulosin 0.4mg cap ORAL SCH ×2 (10:59→17:57)
[2017-04-26] MEDS: Heparin 5000 units/ml inj SUBQ SCH ×2 (11:01→21:53)
[2017-04-26] MEDS: Nystatin Powder 100,000 units/gm 15gm TOPIC SCH ×2 (11:04→17:57)
--- NOTE | 2017-04-26 11:20 | Infectious Diseases Prog Note ---
Assessment/Plan Assessment/Plan ASSESSMENT: The patient is a 76-year-old male with: Extended spectrum beta-lactamases E. coli urinary tract UTI Diarrhea due to recurrent C Diff History of recurrent Clostridium difficile.( recent +ve 03/29/17) Acute metabolic enchephalopathy, improving Leukopenia. Afebrile. History of multiple myeloma on chemo. History of GI trach amyloidosis. History of appendicitis. History of intraabdominal abscess in 2014. Hypertension. Prostate cancer. TURP. CAD. CABG PLAN: Cont pt on oral vancomycin , Flagyl and Invanz day # 13 /14 -after completions of IV abx, will extend PO vancomycin for 7 more days -will monitor diarrhea- if not improvign will switch to Fidaxomicin ( requested non formulary drug) Monitor CBC Monitor BMP Subjective Allergies: Coded Allergies: No Known Allergies (Unverified , 04/23/13) Subjective afebrile confused +1 diarryea episode today so far Objective Vital Signs Last 24 Hour Vital Signs Date Time Temp Pulse Resp B/P (MAP) Pulse Ox O2 Delivery O2 Flow Rate FiO2 04/26/17 10:59 79 153/75 04/26/17 10:58 79 153/75 04/26/17 08:00 97.3 79 18 153/75 98 Room Air 04/26/17 04:31 97.7 80 20 136/71 100 Room Air 04/26/17 04:00 76 04/26/17 00:56 97.5 78 19 135/72 96 04/26/17 00:00 93 04/25/17 21:29 89 140/67 04/25/17 20:00 99.0 86 20 134/78 96 Room Air 04/25/17 16:09 97.5 71 19 140/78 97 Room Air 04/25/17 12:00 98.1 73 19 131/73 99 Room Air Height (Feet): 6 Height (Inches): 1.00 Weight (Pounds): 197 Objective General Appearance: WD/WN, no apparent distress;more awake today, slurred speech HEENT: normocephalic, anicteric Neck: non-tender, normal alignment Respiratory/Chest: chest wall non-tender, lungs clear Cardiovascular/Chest: normal rate, regular rhythm Abdomen: non tender, soft Genitourinary/Rectal: normal genital exam, normal rectal exam Extremities: normal range of motion, non-pitting Laboratory Tests Test 04/26/17 05:00 White Blood Count 6.6 K/UL (4.8-10.8) Red Blood Count 3.19 M/UL (4.70-6.10) L Hemoglobin 10.4 G/DL (14.2-18.0) L Hematocrit 32.0 % (42.0-52.0) L Mean Corpuscular Volume 100 FL (80-99) H Mean Corpuscular Hemoglobin 32.5 PG (27.0-31.0) H Mean Corpuscular Hemoglobin Concent 32.5 G/DL (32.0-36.0) Red Cell Distribution Width 14.3 % (11.6-14.8) Platelet Count 165 K/UL (150-450) Mean Platelet Volume 5.5 FL (6.5-10.1) L Neutrophils (%) (Auto) 67.8 % (45.0-75.0) Lymphocytes (%) (Auto) 14.6 % (20.0-45.0) L Monocytes (%) (Auto) 11.9 % (1.0-10.0) H Eosinophils (%) (Auto) 3.5 % (0.0-3.0) H Basophils (%) (Auto) 2.2 % (0.0-2.0) H Sodium Level 142 MMOL/L (136-145) Potassium Level 3.1 MMOL/L (3.5-5.1) L Chloride Level 106 MMOL/L (98-107) Carbon Dioxide Level 28 MMOL/L (21-32) Anion Gap 8 mmol/L (5-15) Blood Urea Nitrogen 2 mg/dL (7-18) L Creatinine 1.2 MG/DL (0.55-1.30) Estimat Glomerular Filtration Rate mL/min (>60) Glucose Level 107 MG/DL (74-106) H Calcium Level 8.4 MG/DL (8.5-10.1) L Total Bilirubin 0.8 MG/DL (0.2-1.0) Aspartate Amino Transf (AST/SGOT) 33 U/L (15-37) Alanine Aminotransferase (ALT/SGPT) 21 U/L (12-78) Alkaline Phosphatase 77 U/L (46-116) Total Protein 5.6 G/DL (6.4-8.2) L Albumin 3.2 G/DL (3.4-5.0) L Globulin 2.4 g/dL Albumin/Globulin Ratio 1.3 (1.0-2.7) Current Medications Medications (Trade) Dose Ordered Sig/Antionette Route PRN Reason Start Time Stop Time Status Last Admin Dose Admin Acetaminophen (Tylenol) 650 mg Q4H PRN ORAL fever 04/23/17 16:30 05/12/17 16:29 Acetaminophen/ Hydrocodone Bitart ([place] 5/325) 1 tab Q6H PRN ORAL For Pain 4-10 04/23/17 16:30 04/27/17 16:29 Amlodipine Besylate (Norvasc) 5 mg DAILY ORAL 04/24/17 09:00 05/13/17 08:59 04/26/17 10:59 Chlorhexidine Gluconate (Lisette-Hex 2%) 1 applic DAILY@2000 TOPIC 04/23/17 20:00 05/15/17 19:59 04/25/17 16:39 Clonazepam (KlonoPIN) 0.25 mg BID ORAL 04/24/17 13:45 05/01/17 13:44 04/26/17 10:59 Dextrose (Dextrose 50%) STAT PRN IV Hypoglycemia 04/23/17 16:30 05/23/17 16:29 Dextrose/Sodium Chloride 1,000 ml @ 75 mls/hr [id number] IV 04/23/17 17:00 05/12/17 16:59 04/25/17 22:22 Diphenoxylate HCl/ Atropine (Lomotil) 2.5 mg Q4H PRN ORAL Diarrhea 04/23/17 16:15 05/12/17 16:14 Ertapenem 1 gm/ Sodium Chloride 55 ml @ 110 mls/hr Q24H IVPB 04/23/17 18:00 04/27/17 23:59 04/25/17 17:53 Finasteride (Proscar) 5 mg DAILY ORAL 04/24/17 09:00 05/13/17 08:59 04/26/17 10:59 Heparin Sodium (Porcine) (Heparin 5000 units/ml) 5,000 units EVERY 12 HOURS SUBQ 04/23/17 21:00 05/12/17 20:59 04/26/17 11:01 Metoprolol Tartrate (Lopressor) 25 mg Q12HR ORAL 04/23/17 21:00 05/12/17 20:59 04/26/17 10:58 Metronidazole (Flagyl) 500 mg Q8HR ORAL 04/23/17 22:00 04/30/17 21:59 04/26/17 05:57 Nitroglycerin (Ntg) 0.4 mg Q5M X 3 DOSES PRN SL Prn Chest Pain 04/23/17 16:15 05/12/17 15:44 Nystatin (Nystop Powder) 1 applic BID TOPIC 04/23/17 18:00 05/20/17 20:59 04/26/17 11:04 Ondansetron HCl (Zofran) 4 mg Q6H PRN IVP Nausea & Vomiting 04/23/17 16:30 05/12/17 16:29 Tamsulosin HCl (Flomax) 0.4 mg BID ORAL 04/23/17 18:00 05/12/17 17:59 04/26/17 10:59 Vancomycin HCl (Vancomycin) 250 mg FOUR TIMES A DAY ORAL 04/23/17 18:00 04/27/17 23:59 04/26/17 10:59 Yaima Nguyễn M.D. Apr 26, 2017 11:20
[2017-04-26 12:00] VITALS: BP 149/70
--- NOTE | 2017-04-26 12:17 | Pulmonology Progress Note ---
Assessment/Plan Problems: (1) Acute encephalopathy (2) C. difficile colitis (3) Sepsis (4) Multiple myeloma (5) intermittent generalised tremors without LOC (6) r/o paraneoplastic syndrom (7) Acute on chronic renal failure (8) UTI (urinary tract infection) Assessment/Plan no new complains still lethargic dc unessential meds contine abx as per ID Neuro note appreciated consider palliative care, b/o hx of MM, persistent diarrhea, CVA, ? ALOC, ? paraneoplastic syndrome Subjective ROS Limited/Unobtainable: No Interval Events: episodes of somnolence and confusion Allergies: Coded Allergies: No Known Allergies (Unverified , 04/23/13) Objective Last 24 Hour Vital Signs Date Time Temp Pulse Resp B/P (MAP) Pulse Ox O2 Delivery O2 Flow Rate FiO2 04/26/17 10:59 79 153/75 04/26/17 10:58 79 153/75 04/26/17 08:00 97.3 79 18 153/75 98 Room Air 04/26/17 04:31 97.7 80 20 136/71 100 Room Air 04/26/17 04:00 76 04/26/17 00:56 97.5 78 19 135/72 96 04/26/17 00:00 93 04/25/17 21:29 89 140/67 04/25/17 20:00 99.0 86 20 134/78 96 Room Air 04/25/17 16:09 97.5 71 19 140/78 97 Room Air Objective General Appearance: WD/WN, no apparent distress Lines, tubes and drains: peripheral, HEENT: normocephalic, anicteric Neck: non-tender, normal alignment Respiratory/Chest: chest wall non-tender, lungs clear Cardiovascular/Chest: normal rate, regular rhythm Abdomen: non tender, soft Genitourinary/Rectal: normal genital exam, normal rectal exam Extremities: normal range of motion, non-pitting Laboratory Tests 04/26/17 05:00: White Blood Count 6.6, Red Blood Count 3.19L, Hemoglobin 10.4L, Hematocrit 32.0L , Mean Corpuscular Volume 100H, Mean Corpuscular Hemoglobin 32.5H, Mean Corpuscular Hemoglobin Concent 32.5, Red Cell Distribution Width 14.3, Platelet Count 165, Mean Platelet Volume 5.5L, Neutrophils (%) (Auto) 67.8, Lymphocytes ( %) (Auto) 14.6L, Monocytes (%) (Auto) 11.9H, Eosinophils (%) (Auto) 3.5H, Basophils (%) (Auto) 2.2H, Sodium Level 142, Potassium Level 3.1L, Chloride Level 106, Carbon Dioxide Level 28, Anion Gap 8, Blood Urea Nitrogen 2L, Creatinine 1.2, Estimat Glomerular Filtration Rate , Glucose Level 107H, Calcium Level 8.4L, Total Bilirubin 0.8, Aspartate Amino Transf (AST/SGOT) 33, Alanine Aminotransferase (ALT/SGPT) 21, Alkaline Phosphatase 77, Total Protein 5.6L, Albumin 3.2L, Globulin 2.4, Albumin/Globulin Ratio 1.3 Current Medications Medications (Trade) Dose Ordered Sig/Antionette Route PRN Reason Start Time Stop Time Status Last Admin Dose Admin Acetaminophen (Tylenol) 650 mg Q4H PRN ORAL fever 04/23/17 16:30 05/12/17 16:29 Acetaminophen/ Hydrocodone Bitart ([place] 5/325) 1 tab Q6H PRN ORAL For Pain 4-10 04/23/17 16:30 04/27/17 16:29 Amlodipine Besylate (Norvasc) 5 mg DAILY ORAL 04/24/17 09:00 05/13/17 08:59 04/26/17 10:59 Chlorhexidine Gluconate (Lisette-Hex 2%) 1 applic DAILY@2000 TOPIC 04/23/17 20:00 05/15/17 19:59 04/25/17 16:39 Clonazepam (KlonoPIN) 0.25 mg BID ORAL 04/24/17 13:45 05/01/17 13:44 04/26/17 10:59 Dextrose (Dextrose 50%) STAT PRN IV Hypoglycemia 04/23/17 16:30 05/23/17 16:29 Dextrose/Sodium Chloride 1,000 ml @ 75 mls/hr [id number] IV 04/23/17 17:00 05/12/17 16:59 04/25/17 22:22 Diphenoxylate HCl/ Atropine (Lomotil) 2.5 mg Q4H PRN ORAL Diarrhea 04/23/17 16:15 05/12/17 16:14 Ertapenem 1 gm/ Sodium Chloride 55 ml @ 110 mls/hr Q24H IVPB 04/23/17 18:00 04/27/17 23:59 04/25/17 17:53 Finasteride (Proscar) 5 mg DAILY ORAL 04/24/17 09:00 05/13/17 08:59 04/26/17 10:59 Heparin Sodium (Porcine) (Heparin 5000 units/ml) 5,000 units EVERY 12 HOURS SUBQ 04/23/17 21:00 05/12/17 20:59 04/26/17 11:01 Metoprolol Tartrate (Lopressor) 25 mg Q12HR ORAL 04/23/17 21:00 05/12/17 20:59 04/26/17 10:58 Metronidazole (Flagyl) 500 mg Q8HR ORAL 04/23/17 22:00 04/30/17 21:59 04/26/17 05:57 Nitroglycerin (Ntg) 0.4 mg Q5M X 3 DOSES PRN SL Prn Chest Pain 04/23/17 16:15 05/12/17 15:44 Nystatin (Nystop Powder) 1 applic BID TOPIC 04/23/17 18:00 05/20/17 20:59 04/26/17 11:04 Ondansetron HCl (Zofran) 4 mg Q6H PRN IVP Nausea & Vomiting 04/23/17 16:30 05/12/17 16:29 Tamsulosin HCl (Flomax) 0.4 mg BID ORAL 04/23/17 18:00 05/12/17 17:59 04/26/17 10:59 Vancomycin HCl (Vancomycin) 250 mg FOUR TIMES A DAY ORAL 04/23/17 18:00 05/04/17 17:59 04/26/17 10:59 GOLDEN LIM Apr 26, 2017 12:17
[2017-04-26] MEDS: D5 1/2NS 1,000 ML IV SCH (12:52)
--- NOTE | 2017-04-26 14:46 | GI Progress Note ---
Assessment/Plan Problems: (1) Chemotherapy-induced diarrhea ICD Codes: K52.1 - Toxic gastroenteritis and colitis; T45.1X5A - Adverse effect of antineoplastic and immunosuppressive drugs, initial encounter SNOMED: 671014268, 047296007 (2) Clostridium difficile colitis ICD Codes: A04.7 - Enterocolitis due to Clostridium difficile SNOMED: 690595247 (3) Anemia ICD Codes: D64.9 - Anemia SNOMED: 353172552 (4) Clostridium difficile diarrhea ICD Codes: A04.72 - Enterocolitis due to Clostridium difficile, not specified as recurrent SNOMED: 7389318398700 (5) Amyloidosis ICD Codes: E85.9 - Amyloidosis, unspecified SNOMED: 41888096 Status: stable Status Narrative Discussed with Dr. Flores. Assessment/Plan s/p EGD/colonoscopy 2015 >> amyloidosis stool culture normal folate/B12 WNL Vit D deficiency abdominal U/S unremarkable PICC in place ammonia low abx monitor H&H, prn transfusions low residual/fiber diet / lactose free diet >> push PO IV hydration + electrolyte replacement lomotil prn H2B fu labs Vit D daily Subjective Subjective limited Objective Last 24 Hour Vital Signs Date Time Temp Pulse Resp B/P (MAP) Pulse Ox O2 Delivery O2 Flow Rate FiO2 04/26/17 10:59 79 153/75 04/26/17 10:58 79 153/75 04/26/17 08:00 97.3 79 18 153/75 98 Room Air 04/26/17 04:31 97.7 80 20 136/71 100 Room Air 04/26/17 04:00 76 04/26/17 00:56 97.5 78 19 135/72 96 04/26/17 00:00 93 04/25/17 21:29 89 140/67 04/25/17 20:00 99.0 86 20 134/78 96 Room Air 04/25/17 16:09 97.5 71 19 140/78 97 Room Air Laboratory Tests Test 04/26/17 05:00 White Blood Count 6.6 K/UL (4.8-10.8) Red Blood Count 3.19 M/UL (4.70-6.10) L Hemoglobin 10.4 G/DL (14.2-18.0) L Hematocrit 32.0 % (42.0-52.0) L Mean Corpuscular Volume 100 FL (80-99) H Mean Corpuscular Hemoglobin 32.5 PG (27.0-31.0) H Mean Corpuscular Hemoglobin Concent 32.5 G/DL (32.0-36.0) Red Cell Distribution Width 14.3 % (11.6-14.8) Platelet Count 165 K/UL (150-450) Mean Platelet Volume 5.5 FL (6.5-10.1) L Neutrophils (%) (Auto) 67.8 % (45.0-75.0) Lymphocytes (%) (Auto) 14.6 % (20.0-45.0) L Monocytes (%) (Auto) 11.9 % (1.0-10.0) H Eosinophils (%) (Auto) 3.5 % (0.0-3.0) H Basophils (%) (Auto) 2.2 % (0.0-2.0) H Sodium Level 142 MMOL/L (136-145) Potassium Level 3.1 MMOL/L (3.5-5.1) L Chloride Level 106 MMOL/L (98-107) Carbon Dioxide Level 28 MMOL/L (21-32) Anion Gap 8 mmol/L (5-15) Blood Urea Nitrogen 2 mg/dL (7-18) L Creatinine 1.2 MG/DL (0.55-1.30) Estimat Glomerular Filtration Rate mL/min (>60) Glucose Level 107 MG/DL (74-106) H Calcium Level 8.4 MG/DL (8.5-10.1) L Total Bilirubin 0.8 MG/DL (0.2-1.0) Aspartate Amino Transf (AST/SGOT) 33 U/L (15-37) Alanine Aminotransferase (ALT/SGPT) 21 U/L (12-78) Alkaline Phosphatase 77 U/L (46-116) Total Protein 5.6 G/DL (6.4-8.2) L Albumin 3.2 G/DL (3.4-5.0) L Globulin 2.4 g/dL Albumin/Globulin Ratio 1.3 (1.0-2.7) Height (Feet): 6 Height (Inches): 1.00 Weight (Pounds): 197 General Appearance: WD/WN, no apparent distress, alert - more alert today Cardiovascular: normal rate Respiratory/Chest: normal breath sounds, no respiratory distress Abdominal Exam: normal bowel sounds, non tender, soft Extremities: non-tender Domenica Chanel N.P. Apr 26, 2017 14:46
[2017-04-26 16:00] VITALS: BP 117/69
--- NOTE | 2017-04-26 16:48 | Internal Med Progress Note ---
Subjective Date of Service: Apr 26, 2017 Physician Name Elias,Elly Attending Physician Jovani Villagomez MD Current Medications Medications (Trade) Dose Ordered Sig/Antionette Route PRN Reason Start Time Stop Time Status Last Admin Dose Admin Acetaminophen (Tylenol) 650 mg Q4H PRN ORAL fever 04/23/17 16:30 05/12/17 16:29 Acetaminophen/ Hydrocodone Bitart ([place] 5/325) 1 tab Q6H PRN ORAL For Pain 4-10 04/23/17 16:30 04/27/17 16:29 Amlodipine Besylate (Norvasc) 5 mg DAILY ORAL 04/24/17 09:00 05/13/17 08:59 04/26/17 10:59 Chlorhexidine Gluconate (Lisette-Hex 2%) 1 applic DAILY@2000 TOPIC 04/23/17 20:00 05/15/17 19:59 04/25/17 16:39 Clonazepam (KlonoPIN) 0.25 mg BID ORAL 04/24/17 13:45 05/01/17 13:44 04/26/17 10:59 Dextrose (Dextrose 50%) STAT PRN IV Hypoglycemia 04/23/17 16:30 05/23/17 16:29 Dextrose/Sodium Chloride 1,000 ml @ 75 mls/hr [id number] IV 04/23/17 17:00 05/12/17 16:59 04/26/17 12:52 Diphenoxylate HCl/ Atropine (Lomotil) 2.5 mg Q4H PRN ORAL Diarrhea 04/23/17 16:15 05/12/17 16:14 Ertapenem 1 gm/ Sodium Chloride 55 ml @ 110 mls/hr Q24H IVPB 04/23/17 18:00 04/27/17 23:59 04/25/17 17:53 Finasteride (Proscar) 5 mg DAILY ORAL 04/24/17 09:00 05/13/17 08:59 04/26/17 10:59 Heparin Sodium (Porcine) (Heparin 5000 units/ml) 5,000 units EVERY 12 HOURS SUBQ 04/23/17 21:00 05/12/17 20:59 04/26/17 11:01 Metoprolol Tartrate (Lopressor) 25 mg Q12HR ORAL 04/23/17 21:00 05/12/17 20:59 04/26/17 10:58 Metronidazole (Flagyl) 500 mg Q8HR ORAL 04/23/17 22:00 04/30/17 21:59 04/26/17 13:00 Nitroglycerin (Ntg) 0.4 mg Q5M X 3 DOSES PRN SL Prn Chest Pain 04/23/17 16:15 05/12/17 15:44 Nystatin (Nystop Powder) 1 applic BID TOPIC 04/23/17 18:00 05/20/17 20:59 04/26/17 11:04 Ondansetron HCl (Zofran) 4 mg Q6H PRN IVP Nausea & Vomiting 04/23/17 16:30 05/12/17 16:29 Tamsulosin HCl (Flomax) 0.4 mg BID ORAL 04/23/17 18:00 05/12/17 17:59 04/26/17 10:59 Vancomycin HCl (Vancomycin) 250 mg FOUR TIMES A DAY ORAL 04/23/17 18:00 05/04/17 17:59 04/26/17 12:52 Allergies: Coded Allergies: No Known Allergies (Unverified , 04/23/13) ROS Limited/Unobtainable: Yes Subjective 76 YO M admitted with left lower quadrant pain. Now UTI. Cover for Int Med-Dr Villagomez.. Patient confused Objective Last Vital Signs Date Time Temp Pulse Resp B/P (MAP) Pulse Ox O2 Delivery O2 Flow Rate FiO2 04/26/17 16:00 84 04/26/17 12:00 97.7 20 149/70 99 Room Air Laboratory Tests Test 04/26/17 05:00 White Blood Count 6.6 K/UL (4.8-10.8) Red Blood Count 3.19 M/UL (4.70-6.10) L Hemoglobin 10.4 G/DL (14.2-18.0) L Hematocrit 32.0 % (42.0-52.0) L Mean Corpuscular Volume 100 FL (80-99) H Mean Corpuscular Hemoglobin 32.5 PG (27.0-31.0) H Mean Corpuscular Hemoglobin Concent 32.5 G/DL (32.0-36.0) Red Cell Distribution Width 14.3 % (11.6-14.8) Platelet Count 165 K/UL (150-450) Mean Platelet Volume 5.5 FL (6.5-10.1) L Neutrophils (%) (Auto) 67.8 % (45.0-75.0) Lymphocytes (%) (Auto) 14.6 % (20.0-45.0) L Monocytes (%) (Auto) 11.9 % (1.0-10.0) H Eosinophils (%) (Auto) 3.5 % (0.0-3.0) H Basophils (%) (Auto) 2.2 % (0.0-2.0) H Sodium Level 142 MMOL/L (136-145) Potassium Level 3.1 MMOL/L (3.5-5.1) L Chloride Level 106 MMOL/L (98-107) Carbon Dioxide Level 28 MMOL/L (21-32) Anion Gap 8 mmol/L (5-15) Blood Urea Nitrogen 2 mg/dL (7-18) L Creatinine 1.2 MG/DL (0.55-1.30) Estimat Glomerular Filtration Rate mL/min (>60) Glucose Level 107 MG/DL (74-106) H Calcium Level 8.4 MG/DL (8.5-10.1) L Total Bilirubin 0.8 MG/DL (0.2-1.0) Aspartate Amino Transf (AST/SGOT) 33 U/L (15-37) Alanine Aminotransferase (ALT/SGPT) 21 U/L (12-78) Alkaline Phosphatase 77 U/L (46-116) Total Protein 5.6 G/DL (6.4-8.2) L Albumin 3.2 G/DL (3.4-5.0) L Globulin 2.4 g/dL Albumin/Globulin Ratio 1.3 (1.0-2.7) Objective General Appearance: WD/WN, no apparent distress, alert EENT: PERRL/EOMI, normal ENT inspection, TMs normal Neck: non-tender, normal alignment, supple, normal inspection Cardiovascular: normal peripheral pulses, normal rate, regular rhythm, no gallop/murmur, no JVD Respiratory/Chest: chest wall non-tender, lungs clear, normal breath sounds, no respiratory distress, no accessory muscle use Abdomen: normal bowel sounds, soft, no organomegaly, guarding, rebound, tender Extremities: normal range of motion, non-tender 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 Coli-Multi drug resistant. See ID note. Continue ertapenem (3) Clostridium difficile colitis Assessment & Plan: Continue vanco and flagyl. See GI note (4) Amyloidosis Assessment & Plan: GI-see gastroenterology note (5) Multiple myeloma (6) HTN (hypertension) Assessment & Plan: Cont norvasc and lopressor (7) Anemia (8) CAD (coronary artery disease) (9) BPH (benign prostatic hyperplasia) (10) Confused Assessment & Plan: Toxic metabolic encephalopathy. See Neuro consult note. Status: not improved ELLY ELIAS Apr 26, 2017 16:48
[2017-04-26] MEDS: Ertapenem 1 GM in NS 55 ML IVPB SCH (17:57)
[2017-04-26 20:03] VITALS: BP 127/71
--- NOTE | 2017-04-26 20:10 | General Progress Note ---
Assessment/Plan Status: stable, progressing Assessment/Plan the pt is still delirious the pt is more alert however still has waxing and waning consciousness -cont current meds Subjective Date patient seen: Apr 26, 2017 Neurologic/Psychiatric: Reports: depressed, emotional problems Allergies: Coded Allergies: No Known Allergies (Unverified , 04/23/13) Subjective the pt was more alert and lucid today Objective Last 24 Hour Vital Signs Date Time Temp Pulse Resp B/P (MAP) Pulse Ox O2 Delivery O2 Flow Rate FiO2 04/26/17 16:00 84 04/26/17 16:00 97.3 80 17 117/69 04/26/17 12:00 97.7 81 20 149/70 99 Room Air 04/26/17 12:00 79 04/26/17 10:59 79 153/75 04/26/17 10:58 79 153/75 04/26/17 08:00 83 04/26/17 08:00 97.3 79 18 153/75 98 Room Air 04/26/17 04:31 97.7 80 20 136/71 100 Room Air 04/26/17 04:00 76 04/26/17 00:56 97.5 78 19 135/72 96 04/26/17 00:00 93 04/25/17 21:29 89 140/67 Intake and Output 04/26/17 04/27/17 19:00 07:00 Intake Total 1470 ml Balance 1470 ml Intake Oral 720 ml IV Total 750 ml # Voids 5 1 # Bowel Movements 2 1 Laboratory Tests 04/26/17 05:00: White Blood Count 6.6, Red Blood Count 3.19L, Hemoglobin 10.4L, Hematocrit 32.0L , Mean Corpuscular Volume 100H, Mean Corpuscular Hemoglobin 32.5H, Mean Corpuscular Hemoglobin Concent 32.5, Red Cell Distribution Width 14.3, Platelet Count 165, Mean Platelet Volume 5.5L, Neutrophils (%) (Auto) 67.8, Lymphocytes ( %) (Auto) 14.6L, Monocytes (%) (Auto) 11.9H, Eosinophils (%) (Auto) 3.5H, Basophils (%) (Auto) 2.2H, Sodium Level 142, Potassium Level 3.1L, Chloride Level 106, Carbon Dioxide Level 28, Anion Gap 8, Blood Urea Nitrogen 2L, Creatinine 1.2, Estimat Glomerular Filtration Rate , Glucose Level 107H, Calcium Level 8.4L, Total Bilirubin 0.8, Aspartate Amino Transf (AST/SGOT) 33, Alanine Aminotransferase (ALT/SGPT) 21, Alkaline Phosphatase 77, Total Protein 5.6L, Albumin 3.2L, Globulin 2.4, Albumin/Globulin Ratio 1.3 Height (Feet): 6 Height (Inches): 1.00 Weight (Pounds): 197 General Appearance: no apparent distress, alert Neurologic: alert, oriented x 3, responsive Arelis Leonard M.D. Apr 26, 2017 20:10
--- NOTE | 2017-04-26 20:11 | Geriatric Progress Note ---
Assessment/Plan Discussed with: patient Subjective Interval Events 04/25/17 Mood/Memory: Reports: prior hx, anxiety, depressed feelings Geriatric Geriatric Last 24 Hour Vital Signs Date Time Temp Pulse Resp B/P (MAP) Pulse Ox O2 Delivery O2 Flow Rate FiO2 04/26/17 16:00 84 04/26/17 16:00 97.3 80 17 117/69 04/26/17 12:00 97.7 81 20 149/70 99 Room Air 04/26/17 12:00 79 04/26/17 10:59 79 153/75 04/26/17 10:58 79 153/75 04/26/17 08:00 83 04/26/17 08:00 97.3 79 18 153/75 98 Room Air 04/26/17 04:31 97.7 80 20 136/71 100 Room Air 04/26/17 04:00 76 04/26/17 00:56 97.5 78 19 135/72 96 04/26/17 00:00 93 04/25/17 21:29 89 140/67 Intake and Output 04/26/17 04/27/17 19:00 07:00 Intake Total 1470 ml Balance 1470 ml Intake Oral 720 ml IV Total 750 ml # Voids 5 1 # Bowel Movements 2 1 Laboratory Tests Test 04/26/17 05:00 White Blood Count 6.6 K/UL (4.8-10.8) Red Blood Count 3.19 M/UL (4.70-6.10) L Hemoglobin 10.4 G/DL (14.2-18.0) L Hematocrit 32.0 % (42.0-52.0) L Mean Corpuscular Volume 100 FL (80-99) H Mean Corpuscular Hemoglobin 32.5 PG (27.0-31.0) H Mean Corpuscular Hemoglobin Concent 32.5 G/DL (32.0-36.0) Red Cell Distribution Width 14.3 % (11.6-14.8) Platelet Count 165 K/UL (150-450) Mean Platelet Volume 5.5 FL (6.5-10.1) L Neutrophils (%) (Auto) 67.8 % (45.0-75.0) Lymphocytes (%) (Auto) 14.6 % (20.0-45.0) L Monocytes (%) (Auto) 11.9 % (1.0-10.0) H Eosinophils (%) (Auto) 3.5 % (0.0-3.0) H Basophils (%) (Auto) 2.2 % (0.0-2.0) H Sodium Level 142 MMOL/L (136-145) Potassium Level 3.1 MMOL/L (3.5-5.1) L Chloride Level 106 MMOL/L (98-107) Carbon Dioxide Level 28 MMOL/L (21-32) Anion Gap 8 mmol/L (5-15) Blood Urea Nitrogen 2 mg/dL (7-18) L Creatinine 1.2 MG/DL (0.55-1.30) Estimat Glomerular Filtration Rate mL/min (>60) Glucose Level 107 MG/DL (74-106) H Calcium Level 8.4 MG/DL (8.5-10.1) L Total Bilirubin 0.8 MG/DL (0.2-1.0) Aspartate Amino Transf (AST/SGOT) 33 U/L (15-37) Alanine Aminotransferase (ALT/SGPT) 21 U/L (12-78) Alkaline Phosphatase 77 U/L (46-116) Total Protein 5.6 G/DL (6.4-8.2) L Albumin 3.2 G/DL (3.4-5.0) L Globulin 2.4 g/dL Albumin/Globulin Ratio 1.3 (1.0-2.7) Current Medications Medications (Trade) Dose Ordered Sig/Antionette Route PRN Reason Start Time Stop Time Status Last Admin Dose Admin Acetaminophen (Tylenol) 650 mg Q4H PRN ORAL fever 04/23/17 16:30 05/12/17 16:29 Acetaminophen/ Hydrocodone Bitart ([place] 5/325) 1 tab Q6H PRN ORAL For Pain 4-10 04/23/17 16:30 04/27/17 16:29 Amlodipine Besylate (Norvasc) 5 mg DAILY ORAL 04/24/17 09:00 05/13/17 08:59 04/26/17 10:59 Chlorhexidine Gluconate (Lisette-Hex 2%) 1 applic DAILY@1999 TOPIC 04/23/17 20:00 05/15/17 19:59 04/25/17 16:39 Clonazepam (KlonoPIN) 0.25 mg BID ORAL 04/24/17 13:45 05/01/17 13:44 04/26/17 17:57 Dextrose (Dextrose 50%) STAT PRN IV Hypoglycemia 04/23/17 16:30 05/23/17 16:29 Dextrose/Sodium Chloride 1,000 ml @ 75 mls/hr [id number] IV 04/23/17 17:00 05/12/17 16:59 04/26/17 12:52 Diphenoxylate HCl/ Atropine (Lomotil) 2.5 mg Q4H PRN ORAL Diarrhea 04/23/17 16:15 05/12/17 16:14 Ertapenem 1 gm/ Sodium Chloride 55 ml @ 110 mls/hr Q24H IVPB 04/23/17 18:00 04/27/17 23:59 04/26/17 17:57 Finasteride (Proscar) 5 mg DAILY ORAL 04/24/17 09:00 05/13/17 08:59 04/26/17 10:59 Heparin Sodium (Porcine) (Heparin 5000 units/ml) 5,000 units EVERY 12 HOURS SUBQ 04/23/17 21:00 05/12/17 20:59 04/26/17 11:01 Metoprolol Tartrate (Lopressor) 25 mg Q12HR ORAL 04/23/17 21:00 05/12/17 20:59 04/26/17 10:58 Metronidazole (Flagyl) 500 mg Q8HR ORAL 04/23/17 22:00 04/30/17 21:59 04/26/17 13:00 Nitroglycerin (Ntg) 0.4 mg Q5M X 3 DOSES PRN SL Prn Chest Pain 04/23/17 16:15 05/12/17 15:44 Nystatin (Nystop Powder) 1 applic BID TOPIC 04/23/17 18:00 05/20/17 20:59 04/26/17 17:57 Ondansetron HCl (Zofran) 4 mg Q6H PRN IVP Nausea & Vomiting 04/23/17 16:30 05/12/17 16:29 Tamsulosin HCl (Flomax) 0.4 mg BID ORAL 04/23/17 18:00 05/12/17 17:59 04/26/17 17:57 Vancomycin HCl (Vancomycin) 250 mg FOUR TIMES A DAY ORAL 04/23/17 18:00 05/04/17 17:59 04/26/17 17:57 Height (Feet): 6 Height (Inches): 1.00 Weight (Pounds): 197 General Appearance: no apparent distress, poor eye contact, lethargic Psychiatric Orientation: person, disoriented Areils Leonard M.D. Apr 26, 2017 20:11
[2017-04-26] MEDS: Dyna-Hex 2% Top Sol 2oz TOPIC SCH (21:50)
[2017-04-27 00:03] VITALS: BP 143/78
[2017-04-27] MEDS: D5 1/2NS 1,000 ML IV SCH ×2 (01:20→13:52)
[2017-04-27 04:09] VITALS: BP 114/66
[2017-04-27] MEDS: metroNIDAZOLE 500mg tab ORAL SCH ×3 (05:55→20:43)
[2017-04-27 06:30] LABS: BASOPHILS % (AUTO) 1.5 % (0.0-2.0); EOSINOPHILS % (AUTO) 2.7 % (0.0-3.0); LYMPHOCYTES % (AUTO) 14.7 % (20.0-45.0); MEAN CORPUSCULAR HEMOGLOBIN 33.4 PG (27.0-31.0); MEAN CORPUSCULAR HGB CONC 33.2 G/DL (32.0-36.0); MEAN CORPUSCULAR VOLUME 101 FL (80-99); MEAN PLATELET VOLUME 5.8 FL (6.5-10.1); MONOCYTES % (AUTO) 9.6 % (1.0-10.0); NEUTROPHILS % (AUTO) 71.5 % (45.0-75.0); PLATELET COUNT 147 K/UL (150-450); RED BLOOD COUNT 3.05 M/UL (4.70-6.10); RED CELL DISTRIBUTION WIDTH 14.5 % (11.6-14.8); WHITE BLOOD COUNT 6.8 K/UL (4.8-10.8)
[2017-04-27 07:15] LABS: ANION GAP 9 mmol/L (5-15); CALCIUM 8.2 MG/DL (8.5-10.1); CARBON DIOXIDE 28 MMOL/L (21-32); CHLORIDE 107 MMOL/L (98-107); CREATININE 1.2 MG/DL (0.55-1.30); MAGNESIUM 1.6 MG/DL (1.8-2.4); PHOSPHORUS 2.8 MG/DL (2.5-4.9); POTASSIUM 3.4 MMOL/L (3.5-5.1); SODIUM 143 MMOL/L (136-145)
[2017-04-27 08:00] VITALS: BP 135/65
[2017-04-27] MEDS: clonazePAM 0.5mg tab ORAL SCH ×2 (08:55→17:14)
[2017-04-27] MEDS: Vancomycin oral 125mg/2.5ml ORAL SCH ×4 (08:56→20:43)
[2017-04-27] MEDS: Metoprolol 25mg tab ORAL SCH ×2 (08:56→20:44)
[2017-04-27] MEDS: Heparin 5000 units/ml inj SUBQ SCH ×2 (08:57→20:46)
[2017-04-27] MEDS: Nystatin Powder 100,000 units/gm 15gm TOPIC SCH ×2 (08:57→17:16)
[2017-04-27] MEDS: Tamsulosin 0.4mg cap ORAL SCH ×2 (09:17→17:14)
--- NOTE | 2017-04-27 10:11 | Internal Med Progress Note ---
Subjective Date of Service: Apr 27, 2017 Physician Name Schillnig,Lely Attending Physician Jovani Villagomez MD Current Medications Medications (Trade) Dose Ordered Sig/Antionette Route PRN Reason Start Time Stop Time Status Last Admin Dose Admin Acetaminophen (Tylenol) 650 mg Q4H PRN ORAL fever 04/23/17 16:30 05/12/17 16:29 Acetaminophen/ Hydrocodone Bitart ([place] 5/325) 1 tab Q6H PRN ORAL For Pain 4-10 04/23/17 16:30 04/27/17 16:29 04/27/17 01:20 Amlodipine Besylate (Norvasc) 5 mg DAILY ORAL 04/24/17 09:00 05/13/17 08:59 04/27/17 09:08 Chlorhexidine Gluconate (Lisette-Hex 2%) 1 applic DAILY@2000 TOPIC 04/23/17 20:00 05/15/17 19:59 04/26/17 21:50 Clonazepam (KlonoPIN) 0.25 mg BID ORAL 04/24/17 13:45 05/01/17 13:44 04/27/17 08:55 Dextrose (Dextrose 50%) STAT PRN IV Hypoglycemia 04/23/17 16:30 05/23/17 16:29 Dextrose/Sodium Chloride 1,000 ml @ 75 mls/hr [id number] IV 04/23/17 17:00 05/12/17 16:59 04/27/17 01:20 Diphenoxylate HCl/ Atropine (Lomotil) 2.5 mg Q4H PRN ORAL Diarrhea 04/23/17 16:15 05/12/17 16:14 Ertapenem 1 gm/ Sodium Chloride 55 ml @ 110 mls/hr Q24H IVPB 04/23/17 18:00 04/27/17 23:59 04/26/17 17:57 Finasteride (Proscar) 5 mg DAILY ORAL 04/24/17 09:00 05/13/17 08:59 04/27/17 08:55 Heparin Sodium (Porcine) (Heparin 5000 units/ml) 5,000 units EVERY 12 HOURS SUBQ 04/23/17 21:00 05/12/17 20:59 04/27/17 08:57 Magnesium Sulfate 100 ml @ 100 mls/hr Q1H IVPB 04/27/17 09:15 04/27/17 11:14 UNV Metoprolol Tartrate (Lopressor) 25 mg Q12HR ORAL 04/23/17 21:00 05/12/17 20:59 04/27/17 08:56 Metronidazole (Flagyl) 500 mg Q8HR ORAL 04/23/17 22:00 04/30/17 21:59 04/27/17 05:55 Nitroglycerin (Ntg) 0.4 mg Q5M X 3 DOSES PRN SL Prn Chest Pain 04/23/17 16:15 05/12/17 15:44 Nystatin (Nystop Powder) 1 applic BID TOPIC 04/23/17 18:00 05/20/17 20:59 04/27/17 08:57 Ondansetron HCl (Zofran) 4 mg Q6H PRN IVP Nausea & Vomiting 04/23/17 16:30 05/12/17 16:29 Tamsulosin HCl (Flomax) 0.4 mg BID ORAL 04/23/17 18:00 05/12/17 17:59 04/27/17 09:17 Vancomycin HCl (Vancomycin) 250 mg FOUR TIMES A DAY ORAL 04/23/17 18:00 05/04/17 17:59 04/27/17 08:56 Allergies: Coded Allergies: No Known Allergies (Unverified , 04/23/13) Subjective 76 YO M admitted with left lower quadrant pain. Now UTI. Cover for Int Med-Dr Villagomez.. Patient confused. Await [facility] ([facility]) eval. Objective Last Vital Signs Date Time Temp Pulse Resp B/P (MAP) Pulse Ox O2 Delivery O2 Flow Rate FiO2 04/27/17 09:08 88 135/65 04/27/17 08:00 98.2 18 96 Room Air Laboratory Tests Test 04/27/17 05:00 White Blood Count 6.8 K/UL (4.8-10.8) Red Blood Count 3.05 M/UL (4.70-6.10) L Hemoglobin 10.2 G/DL (14.2-18.0) L Hematocrit 30.7 % (42.0-52.0) L Mean Corpuscular Volume 101 FL (80-99) H Mean Corpuscular Hemoglobin 33.4 PG (27.0-31.0) H Mean Corpuscular Hemoglobin Concent 33.2 G/DL (32.0-36.0) Red Cell Distribution Width 14.5 % (11.6-14.8) Platelet Count 147 K/UL (150-450) L Mean Platelet Volume 5.8 FL (6.5-10.1) L Neutrophils (%) (Auto) 71.5 % (45.0-75.0) Lymphocytes (%) (Auto) 14.7 % (20.0-45.0) L Monocytes (%) (Auto) 9.6 % (1.0-10.0) Eosinophils (%) (Auto) 2.7 % (0.0-3.0) Basophils (%) (Auto) 1.5 % (0.0-2.0) Sodium Level 143 MMOL/L (136-145) Potassium Level 3.4 MMOL/L (3.5-5.1) L Chloride Level 107 MMOL/L (98-107) Carbon Dioxide Level 28 MMOL/L (21-32) Anion Gap 9 mmol/L (5-15) Blood Urea Nitrogen 3 mg/dL (7-18) L Creatinine 1.2 MG/DL (0.55-1.30) Estimat Glomerular Filtration Rate mL/min (>60) Glucose Level 90 MG/DL (74-106) Calcium Level 8.2 MG/DL (8.5-10.1) L Phosphorus Level 2.8 MG/DL (2.5-4.9) Magnesium Level 1.6 MG/DL (1.8-2.4) L Intake and Output 04/27/17 04/28/17 19:00 07:00 Intake Total 240 ml Balance 240 ml Intake Oral 240 ml Objective General Appearance: WD/WN, no apparent distress, alert EENT: PERRL/EOMI, normal ENT inspection, TMs normal Neck: non-tender, normal alignment, supple, normal inspection Cardiovascular: normal peripheral pulses, normal rate, regular rhythm, no gallop/murmur, no JVD Respiratory/Chest: chest wall non-tender, lungs clear, normal breath sounds, no respiratory distress, no accessory muscle use Abdomen: normal bowel sounds, soft, no organomegaly, guarding, rebound, tender Extremities: normal range of motion, non-tender 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 Coli-Multi drug resistant. See ID note. Continue ertapenem (3) Clostridium difficile colitis Assessment & Plan: Continue vanco and flagyl. See GI note (4) Amyloidosis Assessment & Plan: GI-see gastroenterology note (5) Multiple myeloma (6) HTN (hypertension) Assessment & Plan: Cont norvasc and lopressor (7) Anemia (8) CAD (coronary artery disease) (9) BPH (benign prostatic hyperplasia) (10) Confused Assessment & Plan: Toxic metabolic encephalopathy. See Neuro consult note. Status: not improved Assessment/Plan [facility]charge planning: [facility] eg. ELLY Valentin Apr 27, 2017 10:11
--- NOTE | 2017-04-27 10:26 | Infectious Diseases Prog Note ---
Assessment/Plan Assessment/Plan ASSESSMENT: The patient is a 76-year-old male with: Extended spectrum beta-lactamases E. coli urinary tract UTI Diarrhea due to recurrent C Diff ; seems to be improving History of recurrent Clostridium difficile.( recent +ve 03/29/17) Acute metabolic enchephalopathy, improving Leukopenia; resolved Afebrile. History of multiple myeloma on chemo. History of GI trach amyloidosis. History of appendicitis. History of intraabdominal abscess in 2014. Hypertension. Prostate cancer. TURP. CAD. CABG PLAN: Cont pt on oral vancomycin , Flagyl and Invanz day # 14 / -after completions of IV abx, will extend PO vancomycin for 7 more days -will monitor diarrhea- if not improving will switch to Fidaxomicin ( requested non formulary drug) Monitor CBC Monitor BMP Discussed with RN Subjective Allergies: Coded Allergies: No Known Allergies (Unverified , 04/23/13) Subjective afebrile no leukocytosis 2 episodes of diarrhea yesterday, today 1 so far Objective Vital Signs Last 24 Hour Vital Signs Date Time Temp Pulse Resp B/P (MAP) Pulse Ox O2 Delivery O2 Flow Rate FiO2 04/27/17 09:08 88 135/65 04/27/17 08:56 88 135/65 04/27/17 08:00 98.2 88 18 135/65 96 Room Air 04/27/17 04:09 97.9 85 20 114/66 97 Room Air 04/27/17 02:19 97.9 04/27/17 00:03 97.7 90 20 143/78 97 Room Air 04/27/17 00:00 77 04/26/17 21:51 97 127/71 04/26/17 20:03 98.6 81 20 127/71 96 Room Air 04/26/17 20:00 93 04/26/17 16:00 84 04/26/17 16:00 97.3 80 17 117/69 04/26/17 12:00 97.7 81 20 149/70 99 Room Air 04/26/17 12:00 79 04/26/17 10:59 79 153/75 04/26/17 10:58 79 153/75 Height (Feet): 6 Height (Inches): 1.00 Weight (Pounds): 197 Objective General Appearance: WD/WN, no apparent distress;more awake today, slurred speech HEENT: normocephalic, anicteric Neck: non-tender, normal alignment Respiratory/Chest: chest wall non-tender, lungs clear Cardiovascular/Chest: normal rate, regular rhythm Abdomen: non tender, soft Genitourinary/Rectal: normal genital exam, normal rectal exam Extremities: normal range of motion, non-pitting Laboratory Tests Test 04/27/17 05:00 White Blood Count 6.8 K/UL (4.8-10.8) Red Blood Count 3.05 M/UL (4.70-6.10) L Hemoglobin 10.2 G/DL (14.2-18.0) L Hematocrit 30.7 % (42.0-52.0) L Mean Corpuscular Volume 101 FL (80-99) H Mean Corpuscular Hemoglobin 33.4 PG (27.0-31.0) H Mean Corpuscular Hemoglobin Concent 33.2 G/DL (32.0-36.0) Red Cell Distribution Width 14.5 % (11.6-14.8) Platelet Count 147 K/UL (150-450) L Mean Platelet Volume 5.8 FL (6.5-10.1) L Neutrophils (%) (Auto) 71.5 % (45.0-75.0) Lymphocytes (%) (Auto) 14.7 % (20.0-45.0) L Monocytes (%) (Auto) 9.6 % (1.0-10.0) Eosinophils (%) (Auto) 2.7 % (0.0-3.0) Basophils (%) (Auto) 1.5 % (0.0-2.0) Sodium Level 143 MMOL/L (136-145) Potassium Level 3.4 MMOL/L (3.5-5.1) L Chloride Level 107 MMOL/L (98-107) Carbon Dioxide Level 28 MMOL/L (21-32) Anion Gap 9 mmol/L (5-15) Blood Urea Nitrogen 3 mg/dL (7-18) L Creatinine 1.2 MG/DL (0.55-1.30) Estimat Glomerular Filtration Rate mL/min (>60) Glucose Level 90 MG/DL (74-106) Calcium Level 8.2 MG/DL (8.5-10.1) L Phosphorus Level 2.8 MG/DL (2.5-4.9) Magnesium Level 1.6 MG/DL (1.8-2.4) L Current Medications Medications (Trade) Dose Ordered Sig/Antionette Route PRN Reason Start Time Stop Time Status Last Admin Dose Admin Acetaminophen (Tylenol) 650 mg Q4H PRN ORAL fever 04/23/17 16:30 05/12/17 16:29 Acetaminophen/ Hydrocodone Bitart ([place] 5/325) 1 tab Q6H PRN ORAL For Pain 4-10 04/23/17 16:30 04/27/17 16:29 04/27/17 01:20 Amlodipine Besylate (Norvasc) 5 mg DAILY ORAL 04/24/17 09:00 05/13/17 08:59 04/27/17 09:08 Chlorhexidine Gluconate (Lisette-Hex 2%) 1 applic DAILY@2000 TOPIC 04/23/17 20:00 05/15/17 19:59 04/26/17 21:50 Clonazepam (KlonoPIN) 0.25 mg BID ORAL 04/24/17 13:45 05/01/17 13:44 04/27/17 08:55 Dextrose (Dextrose 50%) STAT PRN IV Hypoglycemia 04/23/17 16:30 05/23/17 16:29 Dextrose/Sodium Chloride 1,000 ml @ 75 mls/hr [id number] IV 04/23/17 17:00 05/12/17 16:59 04/27/17 01:20 Diphenoxylate HCl/ Atropine (Lomotil) 2.5 mg Q4H PRN ORAL Diarrhea 04/23/17 16:15 05/12/17 16:14 Ertapenem 1 gm/ Sodium Chloride 55 ml @ 110 mls/hr Q24H IVPB 04/23/17 18:00 04/27/17 23:59 04/26/17 17:57 Finasteride (Proscar) 5 mg DAILY ORAL 04/24/17 09:00 05/13/17 08:59 04/27/17 08:55 Heparin Sodium (Porcine) (Heparin 5000 units/ml) 5,000 units EVERY 12 HOURS SUBQ 04/23/17 21:00 05/12/17 20:59 04/27/17 08:57 Magnesium Sulfate 100 ml @ 100 mls/hr Q1H IVPB 04/27/17 10:30 04/27/17 12:29 Metoprolol Tartrate (Lopressor) 25 mg Q12HR ORAL 04/23/17 21:00 05/12/17 20:59 04/27/17 08:56 Metronidazole (Flagyl) 500 mg Q8HR ORAL 04/23/17 22:00 04/30/17 21:59 04/27/17 05:55 Nitroglycerin (Ntg) 0.4 mg Q5M X 3 DOSES PRN SL Prn Chest Pain 04/23/17 16:15 05/12/17 15:44 Nystatin (Nystop Powder) 1 applic BID TOPIC 04/23/17 18:00 05/20/17 20:59 04/27/17 08:57 Ondansetron HCl (Zofran) 4 mg Q6H PRN IVP Nausea & Vomiting 04/23/17 16:30 05/12/17 16:29 Potassium Chloride (K-Dur) 40 meq ONCE ONCE ORAL 04/27/17 10:30 04/27/17 10:31 Tamsulosin HCl (Flomax) 0.4 mg BID ORAL 04/23/17 18:00 05/12/17 17:59 04/27/17 09:17 Vancomycin HCl (Vancomycin) 250 mg FOUR TIMES A DAY ORAL 04/23/17 18:00 05/04/17 17:59 04/27/17 08:56 Yaima Nguyễn M.D. Apr 27, 2017 10:26
--- NOTE | 2017-04-27 11:00 | GI Progress Note ---
Assessment/Plan Problems: (1) Chemotherapy-induced diarrhea ICD Codes: K52.1 - Toxic gastroenteritis and colitis; T45.1X5A - Adverse effect of antineoplastic and immunosuppressive drugs, initial encounter SNOMED: 271096350, 414287522 (2) Clostridium difficile colitis ICD Codes: A04.7 - Enterocolitis due to Clostridium difficile SNOMED: 505885797 (3) Anemia ICD Codes: D64.9 - Anemia SNOMED: 771636347 (4) Clostridium difficile diarrhea ICD Codes: A04.72 - Enterocolitis due to Clostridium difficile, not specified as recurrent SNOMED: 2300748119237 (5) Amyloidosis ICD Codes: E85.9 - Amyloidosis, unspecified SNOMED: 03857832 Status: stable, progressing Status Narrative Discussed with Dr. Flores. Assessment/Plan s/p EGD/colonoscopy 2015 >> amyloidosis stool culture normal folate/B12 WNL Vit D deficiency abdominal U/S unremarkable PICC in place abx monitor H&H, prn transfusions low residual/fiber diet / lactose free diet >> push PO IV hydration + electrolyte replacement lomotil prn H2B Vit D daily fu labs Subjective Subjective limited less confused today wants to go home Objective Last 24 Hour Vital Signs Date Time Temp Pulse Resp B/P (MAP) Pulse Ox O2 Delivery O2 Flow Rate FiO2 04/27/17 09:08 88 135/65 04/27/17 08:56 88 135/65 04/27/17 08:00 98.2 88 18 135/65 96 Room Air 04/27/17 08:00 85 04/27/17 04:09 97.9 85 20 114/66 97 Room Air 04/27/17 02:19 97.9 04/27/17 00:03 97.7 90 20 143/78 97 Room Air 04/27/17 00:00 77 04/26/17 21:51 97 127/71 04/26/17 20:03 98.6 81 20 127/71 96 Room Air 04/26/17 20:00 93 04/26/17 16:00 84 04/26/17 16:00 97.3 80 17 117/69 04/26/17 12:00 97.7 81 20 149/70 99 Room Air 04/26/17 12:00 79 04/26/17 10:59 79 153/75 04/26/17 10:58 79 153/75 Intake and Output 04/27/17 04/28/17 19:00 07:00 Intake Total 240 ml Balance 240 ml Intake Oral 240 ml Laboratory Tests Test 04/27/17 05:00 White Blood Count 6.8 K/UL (4.8-10.8) Red Blood Count 3.05 M/UL (4.70-6.10) L Hemoglobin 10.2 G/DL (14.2-18.0) L Hematocrit 30.7 % (42.0-52.0) L Mean Corpuscular Volume 101 FL (80-99) H Mean Corpuscular Hemoglobin 33.4 PG (27.0-31.0) H Mean Corpuscular Hemoglobin Concent 33.2 G/DL (32.0-36.0) Red Cell Distribution Width 14.5 % (11.6-14.8) Platelet Count 147 K/UL (150-450) L Mean Platelet Volume 5.8 FL (6.5-10.1) L Neutrophils (%) (Auto) 71.5 % (45.0-75.0) Lymphocytes (%) (Auto) 14.7 % (20.0-45.0) L Monocytes (%) (Auto) 9.6 % (1.0-10.0) Eosinophils (%) (Auto) 2.7 % (0.0-3.0) Basophils (%) (Auto) 1.5 % (0.0-2.0) Sodium Level 143 MMOL/L (136-145) Potassium Level 3.4 MMOL/L (3.5-5.1) L Chloride Level 107 MMOL/L (98-107) Carbon Dioxide Level 28 MMOL/L (21-32) Anion Gap 9 mmol/L (5-15) Blood Urea Nitrogen 3 mg/dL (7-18) L Creatinine 1.2 MG/DL (0.55-1.30) Estimat Glomerular Filtration Rate mL/min (>60) Glucose Level 90 MG/DL (74-106) Calcium Level 8.2 MG/DL (8.5-10.1) L Phosphorus Level 2.8 MG/DL (2.5-4.9) Magnesium Level 1.6 MG/DL (1.8-2.4) L Height (Feet): 6 Height (Inches): 1.00 Weight (Pounds): 197 General Appearance: no apparent distress, confused Cardiovascular: normal rate Respiratory/Chest: lungs clear, normal breath sounds, no respiratory distress Abdominal Exam: soft Domenica Cahnel N.P. Apr 27, 2017 10:59
[2017-04-27 11:34] VITALS: BP 124/65
--- NOTE | 2017-04-27 11:39 | Pulmonology Progress Note ---
Assessment/Plan Problems: (1) Acute encephalopathy (2) C. difficile colitis (3) Sepsis (4) Multiple myeloma (5) intermittent generalised tremors without LOC (6) r/o paraneoplastic syndrom (7) Acute on chronic renal failure (8) UTI (urinary tract infection) Assessment/Plan Cont pt on oral vancomycin , Flagyl and Invanz day # 14 / no new complains dc unessential meds contine abx as per ID Neuro note appreciated consider palliative care, b/o hx of MM, persistent diarrhea, CVA, ? ALOC, ? paraneoplastic syndrome Subjective ROS Limited/Unobtainable: No Interval Events: more awake today Constitutional: Reports: no symptoms HEENT: Repors: no symptoms Allergies: Coded Allergies: No Known Allergies (Unverified , 04/23/13) Objective Last 24 Hour Vital Signs Date Time Temp Pulse Resp B/P (MAP) Pulse Ox O2 Delivery O2 Flow Rate FiO2 04/27/17 11:34 96.3 73 20 124/65 98 Room Air 04/27/17 09:08 88 135/65 04/27/17 08:56 88 135/65 04/27/17 08:00 98.2 88 18 135/65 96 Room Air 04/27/17 08:00 85 04/27/17 04:09 97.9 85 20 114/66 97 Room Air 04/27/17 02:19 97.9 04/27/17 00:03 97.7 90 20 143/78 97 Room Air 04/27/17 00:00 77 04/26/17 21:51 97 127/71 04/26/17 20:03 98.6 81 20 127/71 96 Room Air 04/26/17 20:00 93 04/26/17 16:00 84 04/26/17 16:00 97.3 80 17 117/69 04/26/17 12:00 97.7 81 20 149/70 99 Room Air 04/26/17 12:00 79 Intake and Output 04/27/17 04/28/17 19:00 07:00 Intake Total 240 ml Balance 240 ml Intake Oral 240 ml # Voids 1 # Bowel Movements 1 Objective General Appearance: WD/WN, no apparent distress Lines, tubes and drains: peripheral, HEENT: normocephalic, anicteric Neck: non-tender, normal alignment Respiratory/Chest: chest wall non-tender, lungs clear Cardiovascular/Chest: normal rate, regular rhythm Abdomen: non tender, soft Genitourinary/Rectal: normal genital exam, normal rectal exam Extremities: normal range of motion, non-pitting Laboratory Tests 04/27/17 05:00: White Blood Count 6.8, Red Blood Count 3.05L, Hemoglobin 10.2L, Hematocrit 30.7L , Mean Corpuscular Volume 101H, Mean Corpuscular Hemoglobin 33.4H, Mean Corpuscular Hemoglobin Concent 33.2, Red Cell Distribution Width 14.5, Platelet Count 147L, Mean Platelet Volume 5.8L, Neutrophils (%) (Auto) 71.5, Lymphocytes (%) (Auto) 14.7L, Monocytes (%) (Auto) 9.6, Eosinophils (%) (Auto) 2.7, Basophils (%) (Auto) 1.5, Sodium Level 143, Potassium Level 3.4L, Chloride Level 107, Carbon Dioxide Level 28, Anion Gap 9, Blood Urea Nitrogen 3L, Creatinine 1.2, Estimat Glomerular Filtration Rate , Glucose Level 90, Calcium Level 8.2L, Phosphorus Level 2.8, Magnesium Level 1.6L Current Medications Medications (Trade) Dose Ordered Sig/Antionette Route PRN Reason Start Time Stop Time Status Last Admin Dose Admin Acetaminophen (Tylenol) 650 mg Q4H PRN ORAL fever 04/23/17 16:30 05/12/17 16:29 Acetaminophen/ Hydrocodone Bitart ([place] 5/325) 1 tab Q6H PRN ORAL For Pain 4-10 04/23/17 16:30 04/27/17 16:29 04/27/17 01:20 Amlodipine Besylate (Norvasc) 5 mg DAILY ORAL 04/24/17 09:00 05/13/17 08:59 04/27/17 09:08 Chlorhexidine Gluconate (Lisette-Hex 2%) 1 applic DAILY@1999 TOPIC 04/23/17 20:00 05/15/17 19:59 04/26/17 21:50 Clonazepam (KlonoPIN) 0.25 mg BID ORAL 04/24/17 13:45 05/01/17 13:44 04/27/17 08:55 Dextrose (Dextrose 50%) STAT PRN IV Hypoglycemia 04/23/17 16:30 05/23/17 16:29 Dextrose/Sodium Chloride 1,000 ml @ 75 mls/hr [id number] IV 04/23/17 17:00 05/12/17 16:59 04/27/17 01:20 Diphenoxylate HCl/ Atropine (Lomotil) 2.5 mg Q4H PRN ORAL Diarrhea 04/23/17 16:15 05/12/17 16:14 Ertapenem 1 gm/ Sodium Chloride 55 ml @ 110 mls/hr Q24H IVPB 04/23/17 18:00 04/27/17 23:59 04/26/17 17:57 Finasteride (Proscar) 5 mg DAILY ORAL 04/24/17 09:00 05/13/17 08:59 04/27/17 08:55 Heparin Sodium (Porcine) (Heparin 5000 units/ml) 5,000 units EVERY 12 HOURS SUBQ 04/23/17 21:00 05/12/17 20:59 04/27/17 08:57 Magnesium Sulfate 100 ml @ 100 mls/hr Q1H IVPB 04/27/17 10:30 04/27/17 12:29 04/27/17 11:28 Metoprolol Tartrate (Lopressor) 25 mg Q12HR ORAL 04/23/17 21:00 05/12/17 20:59 04/27/17 08:56 Metronidazole (Flagyl) 500 mg Q8HR ORAL 04/23/17 22:00 04/30/17 21:59 04/27/17 05:55 Nitroglycerin (Ntg) 0.4 mg Q5M X 3 DOSES PRN SL Prn Chest Pain 04/23/17 16:15 05/12/17 15:44 Nystatin (Nystop Powder) 1 applic BID TOPIC 04/23/17 18:00 05/20/17 20:59 04/27/17 08:57 Ondansetron HCl (Zofran) 4 mg Q6H PRN IVP Nausea & Vomiting 04/23/17 16:30 05/12/17 16:29 Tamsulosin HCl (Flomax) 0.4 mg BID ORAL 04/23/17 18:00 05/12/17 17:59 04/27/17 09:17 Vancomycin HCl (Vancomycin) 250 mg FOUR TIMES A DAY ORAL 04/23/17 18:00 05/04/17 17:59 04/27/17 08:56 GOLDEN LIM Apr 27, 2017 11:39
[2017-04-27 15:29] VITALS: BP 119/75
--- NOTE | 2017-04-27 16:10 | General Progress Note ---
Assessment/Plan Status: stable, progressing Assessment/Plan the pt is still delirious the pt is more alert however still has waxing and waning consciousness -cont current meds Subjective Neurologic/Psychiatric: Reports: anxiety, depressed, emotional problems Allergies: Coded Allergies: No Known Allergies (Unverified , 04/23/13) Subjective the pt was more alert and lucid today the pt became more agitated after the sitter was dc yesterday Objective Last 24 Hour Vital Signs Date Time Temp Pulse Resp B/P (MAP) Pulse Ox O2 Delivery O2 Flow Rate FiO2 04/27/17 15:29 97.7 70 20 119/75 99 Room Air 04/27/17 12:00 70 04/27/17 11:34 96.3 73 20 124/65 98 Room Air 04/27/17 09:08 88 135/65 04/27/17 08:56 88 135/65 04/27/17 08:00 98.2 88 18 135/65 96 Room Air 04/27/17 08:00 85 04/27/17 04:09 97.9 85 20 114/66 97 Room Air 04/27/17 02:19 97.9 04/27/17 00:03 97.7 90 20 143/78 97 Room Air 04/27/17 00:00 77 04/26/17 21:51 97 127/71 04/26/17 20:03 98.6 81 20 127/71 96 Room Air 04/26/17 20:00 93 Intake and Output 04/27/17 04/28/17 19:00 07:00 Intake Total 460 ml Balance 460 ml Intake Oral 460 ml # Voids 1 # Bowel Movements 1 Laboratory Tests 04/27/17 05:00: White Blood Count 6.8, Red Blood Count 3.05L, Hemoglobin 10.2L, Hematocrit 30.7L , Mean Corpuscular Volume 101H, Mean Corpuscular Hemoglobin 33.4H, Mean Corpuscular Hemoglobin Concent 33.2, Red Cell Distribution Width 14.5, Platelet Count 147L, Mean Platelet Volume 5.8L, Neutrophils (%) (Auto) 71.5, Lymphocytes (%) (Auto) 14.7L, Monocytes (%) (Auto) 9.6, Eosinophils (%) (Auto) 2.7, Basophils (%) (Auto) 1.5, Sodium Level 143, Potassium Level 3.4L, Chloride Level 107, Carbon Dioxide Level 28, Anion Gap 9, Blood Urea Nitrogen 3L, Creatinine 1.2, Estimat Glomerular Filtration Rate , Glucose Level 90, Calcium Level 8.2L, Phosphorus Level 2.8, Magnesium Level 1.6L Height (Feet): 6 Height (Inches): 1.00 Weight (Pounds): 197 General Appearance: no apparent distress, alert, confused Neurologic: alert, responsive, normal mood/affect Arelis Leonard M.D. Apr 27, 2017 16:10
[2017-04-27] MEDS: Ertapenem 1 GM in NS 55 ML IVPB SCH (17:16)
[2017-04-27 20:05] VITALS: BP 130/91
[2017-04-27] MEDS: Dyna-Hex 2% Top Sol 2oz TOPIC SCH (20:43)
--- NOTE | 2017-04-27 20:46 | Electroencephalogram ---
DATE OF PROCEDURE: 04/25/2017 ELECTROENCEPHALOGRAPHY REPORT REQUESTING PHYSICIAN: Jovani Villagomez M.D. HISTORY: This is a 76-year-old man with persistent confusion, intermittently irregular arms and legs shaking and slurred speech, status post old strokes. EEG was requested to assess presence of ongoing seizure event. CURRENT TREATMENT: Include Klonopin, Norvasc, or [place]. During the recording, the patient was awake, drowsy, or asleep. EEG was done using 18 electrodes placed on [id number], [id number]-[id number] montages according to 10/[employer] System. Most wakeful portions of recording, background consists of a low voltage at times poorly defined mixture of 8 to 9 cycles per second activities bilaterally with no significant asymmetry from exvj-cm-jhei and there was no spike or wave activities. The patient was intermittently drowsy or asleep with attenuation of background and appearance of sleep spindles bilaterally symmetric. IMPRESSION: Mildly abnormal EEG in presence of mild diffuse slowing. COMMENT: Absence of paroxysmal event does not rule out seizure disorder. Above abnormality indicates minor global cerebral dysfunction, nonspecific. Nam Ant Arcos DR: Elmer JOB#: [id number] CC:
[2017-04-28 00:01] VITALS: BP 124/80
[2017-04-28 04:00] VITALS: BP 126/86
[2017-04-28] MEDS: D5 1/2NS 1,000 ML IV SCH ×2 (04:46→17:18)
[2017-04-28] MEDS: metroNIDAZOLE 500mg tab ORAL SCH ×3 (04:47→21:10)
--- NOTE | 2017-04-28 05:33 | General Progress Note ---
Assessment/Plan Problem List: (1) Multiple myeloma ICD Codes: C90.00 - Multiple myeloma not having achieved remission SNOMED: 002372391 (2) BPH (benign prostatic hyperplasia) ICD Codes: N40.0 - BPH (benign prostatic hyperplasia) SNOMED: 099989862 (3) HTN (hypertension) ICD Codes: I10 - Essential (primary) hypertension SNOMED: 64097012 (4) Amyloidosis ICD Codes: E85.9 - Amyloidosis, unspecified SNOMED: 40054659 Assessment/Plan s/p EGD/colonoscopy 2016 >> amyloidosis stool culture normal folate/B12 WNL Vit D deficiency abdominal U/S unremarkable PICC in place on abx monitor H&H, prn transfusions low residual/fiber diet / lactose free diet IV hydration + electrolyte replacement lomotil prn H2B fu labs fu Vit D dc planning Subjective ROS Limited/Unobtainable: Yes Allergies: Coded Allergies: No Known Allergies (Unverified , 04/23/13) Subjective no abd pain Objective Last 24 Hour Vital Signs Date Time Temp Pulse Resp B/P (MAP) Pulse Ox O2 Delivery O2 Flow Rate FiO2 04/28/17 03:58 83 04/28/17 00:01 96.7 68 18 124/80 96 Room Air 04/28/17 00:00 79 04/27/17 20:44 85 130/91 04/27/17 20:05 98.2 85 18 130/91 94 Room Air 04/27/17 20:00 82 04/27/17 16:00 76 04/27/17 15:29 97.7 70 20 119/75 99 Room Air 04/27/17 12:00 70 04/27/17 11:34 96.3 73 20 124/65 98 Room Air 04/27/17 09:08 88 135/65 04/27/17 08:56 88 135/65 04/27/17 08:00 98.2 88 18 135/65 96 Room Air 04/27/17 08:00 85 Height (Feet): 6 Height (Inches): 1.00 Weight (Pounds): 197 General Appearance: no apparent distress EENT: normal ENT inspection Neck: supple Cardiovascular: normal rate Respiratory/Chest: decreased breath sounds Abdomen: normal bowel sounds, non tender, soft Extremities: non-tender KATHY WATSON Apr 28, 2017 05:33
[2017-04-28 07:24] LABS: ANION GAP 8 mmol/L (5-15); CALCIUM 8.3 MG/DL (8.5-10.1); CARBON DIOXIDE 27 MMOL/L (21-32); CHLORIDE 107 MMOL/L (98-107); CREATININE 1.1 MG/DL (0.55-1.30); POTASSIUM 3.5 MMOL/L (3.5-5.1); SODIUM 142 MMOL/L (136-145)
[2017-04-28 08:00] VITALS: BP 143/76
[2017-04-28] MEDS: Metoprolol 25mg tab ORAL SCH ×2 (08:25→21:09)
[2017-04-28] MEDS: clonazePAM 0.5mg tab ORAL SCH ×2 (08:25→17:17)
[2017-04-28] MEDS: Tamsulosin 0.4mg cap ORAL SCH ×2 (08:25→17:17)
[2017-04-28] MEDS: Vancomycin oral 125mg/2.5ml ORAL SCH ×4 (08:26→22:00)
[2017-04-28] MEDS: Heparin 5000 units/ml inj SUBQ SCH ×2 (08:27→21:11)
[2017-04-28] MEDS: Nystatin Powder 100,000 units/gm 15gm TOPIC SCH ×2 (08:27→17:18)
[2017-04-28 09:42] LABS: BASOPHILS % (AUTO) 2.5 % (0.0-2.0); EOSINOPHILS % (AUTO) 3.5 % (0.0-3.0); LYMPHOCYTES % (AUTO) 12.8 % (20.0-45.0); MEAN CORPUSCULAR HGB CONC 32.2 G/DL (32.0-36.0); MEAN CORPUSCULAR VOLUME 99 FL (80-99); MEAN PLATELET VOLUME 6.1 FL (6.5-10.1); MONOCYTES % (AUTO) 11.5 % (1.0-10.0); NEUTROPHILS % (AUTO) 69.8 % (45.0-75.0); PLATELET COUNT 154 K/UL (150-450); RED BLOOD COUNT 3.16 M/UL (4.70-6.10); RED CELL DISTRIBUTION WIDTH 14.4 % (11.6-14.8); WHITE BLOOD COUNT 6.3 K/UL (4.8-10.8)
--- NOTE | 2017-04-28 10:10 | Infectious Diseases Prog Note ---
Assessment/Plan Assessment/Plan ASSESSMENT: The patient is a 76-year-old male with: Extended spectrum beta-lactamases E. coli urinary tract UTI Diarrhea due to recurrent C Diff ;continues to have signifcant diarrhea History of recurrent Clostridium difficile.( recent +ve 03/29/17) Acute metabolic enchephalopathy, improving Leukopenia; resolved Afebrile. History of multiple myeloma on chemo. History of GI trach amyloidosis. History of appendicitis. History of intraabdominal abscess in 2014. Hypertension. Prostate cancer. TURP. CAD. CABG PLAN: Cont pt on oral vancomycin and flagyl for 7 more days while awaiting Fidaxomicin approval (requested non formulary drug on 04/26) as still having significant diarrhea. -04/27 SP Ertapenem and Flagyl #14 Monitor CBC Monitor BMP Discussed with RN and pharmacy staff. Subjective Allergies: Coded Allergies: No Known Allergies (Unverified , 04/23/13) Subjective afebrile no leukocytosis still having significant diarrhea- ~3-4 episodes yesterday; today 1 Objective Vital Signs Last 24 Hour Vital Signs Date Time Temp Pulse Resp B/P (MAP) Pulse Ox O2 Delivery O2 Flow Rate FiO2 04/28/17 08:25 83 143/76 04/28/17 08:25 83 143/76 04/28/17 08:00 98.1 83 19 143/76 96 Room Air 04/28/17 04:00 97.8 69 18 126/86 96 Room Air 04/28/17 03:58 83 04/28/17 00:01 96.7 68 18 124/80 96 Room Air 04/28/17 00:00 79 04/27/17 20:44 85 130/91 04/27/17 20:05 98.2 85 18 130/91 94 Room Air 04/27/17 20:00 82 04/27/17 16:00 76 04/27/17 15:29 97.7 70 20 119/75 99 Room Air 04/27/17 12:00 70 04/27/17 11:34 96.3 73 20 124/65 98 Room Air Height (Feet): 6 Height (Inches): 1.00 Weight (Pounds): 197 Objective General Appearance: WD/WN, no apparent distress;more awake today, slurred speech HEENT: normocephalic, anicteric Neck: non-tender, normal alignment Respiratory/Chest: chest wall non-tender, lungs clear Cardiovascular/Chest: normal rate, regular rhythm Abdomen: non tender, soft Genitourinary/Rectal: normal genital exam, normal rectal exam Extremities: normal range of motion, non-pitting Laboratory Tests Test 04/28/17 05:20 04/28/17 09:00 Sodium Level 142 MMOL/L (136-145) Potassium Level 3.5 MMOL/L (3.5-5.1) Chloride Level 107 MMOL/L (98-107) Carbon Dioxide Level 27 MMOL/L (21-32) Anion Gap 8 mmol/L (5-15) Blood Urea Nitrogen 2 mg/dL (7-18) L Creatinine 1.1 MG/DL (0.55-1.30) Estimat Glomerular Filtration Rate mL/min (>60) Glucose Level 99 MG/DL (74-106) Calcium Level 8.3 MG/DL (8.5-10.1) L White Blood Count 6.3 K/UL (4.8-10.8) Red Blood Count 3.16 M/UL (4.70-6.10) L Hemoglobin 10.1 G/DL (14.2-18.0) L Hematocrit 31.5 % (42.0-52.0) L Mean Corpuscular Volume 99 FL (80-99) Mean Corpuscular Hemoglobin 32.0 PG (27.0-31.0) H Mean Corpuscular Hemoglobin Concent 32.2 G/DL (32.0-36.0) Red Cell Distribution Width 14.4 % (11.6-14.8) Platelet Count 154 K/UL (150-450) Mean Platelet Volume 6.1 FL (6.5-10.1) L Neutrophils (%) (Auto) 69.8 % (45.0-75.0) Lymphocytes (%) (Auto) 12.8 % (20.0-45.0) L Monocytes (%) (Auto) 11.5 % (1.0-10.0) H Eosinophils (%) (Auto) 3.5 % (0.0-3.0) H Basophils (%) (Auto) 2.5 % (0.0-2.0) H Current Medications Medications (Trade) Dose Ordered Sig/Antionette Route PRN Reason Start Time Stop Time Status Last Admin Dose Admin Acetaminophen (Tylenol) 650 mg Q4H PRN ORAL fever 04/23/17 16:30 05/12/17 16:29 Amlodipine Besylate (Norvasc) 5 mg DAILY ORAL 04/24/17 09:00 05/13/17 08:59 04/28/17 08:25 Chlorhexidine Gluconate (Lisette-Hex 2%) 1 applic DAILY@2000 TOPIC 04/23/17 20:00 05/15/17 19:59 04/27/17 20:43 Clonazepam (KlonoPIN) 0.25 mg BID ORAL 04/24/17 13:45 05/01/17 13:44 04/28/17 08:25 Dextrose (Dextrose 50%) STAT PRN IV Hypoglycemia 04/23/17 16:30 05/23/17 16:29 Dextrose/Sodium Chloride 1,000 ml @ 75 mls/hr [id number] IV 04/23/17 17:00 05/12/17 16:59 04/28/17 04:46 Diphenoxylate HCl/ Atropine (Lomotil) 2.5 mg Q4H PRN ORAL Diarrhea 04/23/17 16:15 05/12/17 16:14 Finasteride (Proscar) 5 mg DAILY ORAL 04/24/17 09:00 05/13/17 08:59 04/28/17 08:25 Heparin Sodium (Porcine) (Heparin 5000 units/ml) 5,000 units EVERY 12 HOURS SUBQ 04/23/17 21:00 05/12/17 20:59 04/28/17 08:27 Metoprolol Tartrate (Lopressor) 25 mg Q12HR ORAL 04/23/17 21:00 05/12/17 20:59 04/28/17 08:25 Metronidazole (Flagyl) 500 mg Q8HR ORAL 04/23/17 22:00 04/30/17 21:59 04/28/17 04:47 Nitroglycerin (Ntg) 0.4 mg Q5M X 3 DOSES PRN SL Prn Chest Pain 04/23/17 16:15 05/12/17 15:44 Nystatin (Nystop Powder) 1 applic BID TOPIC 04/23/17 18:00 05/20/17 20:59 04/28/17 08:27 Ondansetron HCl (Zofran) 4 mg Q6H PRN IVP Nausea & Vomiting 04/23/17 16:30 05/12/17 16:29 Tamsulosin HCl (Flomax) 0.4 mg BID ORAL 04/23/17 18:00 05/12/17 17:59 04/28/17 08:25 Vancomycin HCl (Vancomycin) 250 mg FOUR TIMES A DAY ORAL 04/23/17 18:00 05/04/17 17:59 04/28/17 08:26 Yaima Nguyễn M.D. Apr 28, 2017 10:10
--- NOTE | 2017-04-28 10:12 | Pulmonology Progress Note ---
Assessment/Plan Problems: (1) Acute encephalopathy (2) C. difficile colitis (3) Sepsis (4) Multiple myeloma (5) intermittent generalised tremors without LOC (6) r/o paraneoplastic syndrom (7) Acute on chronic renal failure (8) UTI (urinary tract infection) Assessment/Plan Cont pt on oral vancomycin no new complains dc unessential meds contine abx as per ID Neuro note appreciated No need for LTAC, pt is on oral vancomycin only Subjective ROS Limited/Unobtainable: No Constitutional: Reports: no symptoms HEENT: Repors: no symptoms Respiratory: Reports: no symptoms Allergies: Coded Allergies: No Known Allergies (Unverified , 04/23/13) Objective Last 24 Hour Vital Signs Date Time Temp Pulse Resp B/P (MAP) Pulse Ox O2 Delivery O2 Flow Rate FiO2 04/28/17 08:25 83 143/76 04/28/17 08:25 83 143/76 04/28/17 08:00 98.1 83 19 143/76 96 Room Air 04/28/17 04:00 97.8 69 18 126/86 96 Room Air 04/28/17 03:58 83 04/28/17 00:01 96.7 68 18 124/80 96 Room Air 04/28/17 00:00 79 04/27/17 20:44 85 130/91 04/27/17 20:05 98.2 85 18 130/91 94 Room Air 04/27/17 20:00 82 04/27/17 16:00 76 04/27/17 15:29 97.7 70 20 119/75 99 Room Air 04/27/17 12:00 70 04/27/17 11:34 96.3 73 20 124/65 98 Room Air Intake and Output 04/28/17 04/29/17 19:00 07:00 Output Total 500 ml Balance -500 ml Output Urine Total 500 ml # Voids 1 Objective General Appearance: WD/WN, no apparent distress Lines, tubes and drains: peripheral, HEENT: normocephalic, anicteric Neck: non-tender, normal alignment Respiratory/Chest: chest wall non-tender, lungs clear Cardiovascular/Chest: normal rate, regular rhythm Abdomen: non tender, soft Genitourinary/Rectal: normal genital exam, normal rectal exam Extremities: normal range of motion, non-pitting Laboratory Tests 04/28/17 05:20: Sodium Level 142, Potassium Level 3.5, Chloride Level 107, Carbon Dioxide Level 27, Anion Gap 8, Blood Urea Nitrogen 2L, Creatinine 1.1, Estimat Glomerular Filtration Rate , Glucose Level 99, Calcium Level 8.3L 04/28/17 09:00: White Blood Count 6.3, Red Blood Count 3.16L, Hemoglobin 10.1L, Hematocrit 31.5L , Mean Corpuscular Volume 99, Mean Corpuscular Hemoglobin 32.0H, Mean Corpuscular Hemoglobin Concent 32.2, Red Cell Distribution Width 14.4, Platelet Count 154, Mean Platelet Volume 6.1L, Neutrophils (%) (Auto) 69.8, Lymphocytes ( %) (Auto) 12.8L, Monocytes (%) (Auto) 11.5H, Eosinophils (%) (Auto) 3.5H, Basophils (%) (Auto) 2.5H Current Medications Medications (Trade) Dose Ordered Sig/Antionette Route PRN Reason Start Time Stop Time Status Last Admin Dose Admin Acetaminophen (Tylenol) 650 mg Q4H PRN ORAL fever 04/23/17 16:30 05/12/17 16:29 Amlodipine Besylate (Norvasc) 5 mg DAILY ORAL 04/24/17 09:00 05/13/17 08:59 04/28/17 08:25 Chlorhexidine Gluconate (Lisette-Hex 2%) 1 applic DAILY@2000 TOPIC 04/23/17 20:00 05/15/17 19:59 04/27/17 20:43 Clonazepam (KlonoPIN) 0.25 mg BID ORAL 04/24/17 13:45 05/01/17 13:44 04/28/17 08:25 Dextrose (Dextrose 50%) STAT PRN IV Hypoglycemia 04/23/17 16:30 05/23/17 16:29 Dextrose/Sodium Chloride 1,000 ml @ 75 mls/hr [id number] IV 04/23/17 17:00 05/12/17 16:59 04/28/17 04:46 Diphenoxylate HCl/ Atropine (Lomotil) 2.5 mg Q4H PRN ORAL Diarrhea 04/23/17 16:15 05/12/17 16:14 Finasteride (Proscar) 5 mg DAILY ORAL 04/24/17 09:00 05/13/17 08:59 04/28/17 08:25 Heparin Sodium (Porcine) (Heparin 5000 units/ml) 5,000 units EVERY 12 HOURS SUBQ 04/23/17 21:00 05/12/17 20:59 04/28/17 08:27 Metoprolol Tartrate (Lopressor) 25 mg Q12HR ORAL 04/23/17 21:00 05/12/17 20:59 04/28/17 08:25 Nitroglycerin (Ntg) 0.4 mg Q5M X 3 DOSES PRN SL Prn Chest Pain 04/23/17 16:15 05/12/17 15:44 Nystatin (Nystop Powder) 1 applic BID TOPIC 04/23/17 18:00 05/20/17 20:59 04/28/17 08:27 Ondansetron HCl (Zofran) 4 mg Q6H PRN IVP Nausea & Vomiting 04/23/17 16:30 05/12/17 16:29 Tamsulosin HCl (Flomax) 0.4 mg BID ORAL 04/23/17 18:00 05/12/17 17:59 04/28/17 08:25 Vancomycin HCl (Vancomycin) 250 mg FOUR TIMES A DAY ORAL 04/23/17 18:00 05/04/17 17:59 04/28/17 08:26 GOLDEN LIM Apr 28, 2017 10:12
--- NOTE | 2017-04-28 11:52 | Internal Med Progress Note ---
Subjective Date of Service: Apr 28, 2017 Physician Name Elly Elias Attending Physician Jovani Villagomez MD Current Medications Medications (Trade) Dose Ordered Sig/Antionette Route PRN Reason Start Time Stop Time Status Last Admin Dose Admin Acetaminophen (Tylenol) 650 mg Q4H PRN ORAL fever 04/23/17 16:30 05/12/17 16:29 Amlodipine Besylate (Norvasc) 5 mg DAILY ORAL 04/24/17 09:00 05/13/17 08:59 04/28/17 08:25 Chlorhexidine Gluconate (Lisette-Hex 2%) 1 applic DAILY@2000 TOPIC 04/23/17 20:00 05/15/17 19:59 04/27/17 20:43 Clonazepam (KlonoPIN) 0.25 mg BID ORAL 04/24/17 13:45 05/01/17 13:44 04/28/17 08:25 Dextrose (Dextrose 50%) STAT PRN IV Hypoglycemia 04/23/17 16:30 05/23/17 16:29 Dextrose/Sodium Chloride 1,000 ml @ 75 mls/hr [id number] IV 04/23/17 17:00 05/12/17 16:59 04/28/17 04:46 Diphenoxylate HCl/ Atropine (Lomotil) 2.5 mg Q4H PRN ORAL Diarrhea 04/23/17 16:15 05/12/17 16:14 Finasteride (Proscar) 5 mg DAILY ORAL 04/24/17 09:00 05/13/17 08:59 04/28/17 08:25 Heparin Sodium (Porcine) (Heparin 5000 units/ml) 5,000 units EVERY 12 HOURS SUBQ 04/23/17 21:00 05/12/17 20:59 04/28/17 08:27 Metoprolol Tartrate (Lopressor) 25 mg Q12HR ORAL 04/23/17 21:00 05/12/17 20:59 04/28/17 08:25 Metronidazole (Flagyl) 500 mg Q8HR ORAL 04/28/17 13:00 05/05/17 12:59 Nitroglycerin (Ntg) 0.4 mg Q5M X 3 DOSES PRN SL Prn Chest Pain 04/23/17 16:15 05/12/17 15:44 Non-Formulary Medication (Non-Formulary Med) 1 ea DAILY ORAL 04/28/17 11:30 05/28/17 11:29 UNV Nystatin (Nystop Powder) 1 applic BID TOPIC 04/23/17 18:00 05/20/17 20:59 04/28/17 08:27 Ondansetron HCl (Zofran) 4 mg Q6H PRN IVP Nausea & Vomiting 04/23/17 16:30 05/12/17 16:29 Tamsulosin HCl (Flomax) 0.4 mg BID ORAL 04/23/17 18:00 05/12/17 17:59 04/28/17 08:25 Vancomycin HCl (Vancomycin) 250 mg FOUR TIMES A DAY ORAL 04/23/17 18:00 05/04/17 17:59 04/28/17 08:26 Allergies: Coded Allergies: No Known Allergies (Unverified , 04/23/13) ROS Limited/Unobtainable: Yes Subjective 76 YO M admitted with left lower quadrant pain. Now UTI. Cover for Int Med-Dr Villagomez.. Patient confused. Await transfer to LTAC ([facility]). Objective Last Vital Signs Date Time Temp Pulse Resp B/P (MAP) Pulse Ox O2 Delivery O2 Flow Rate FiO2 04/28/17 08:25 83 143/76 04/28/17 08:00 98.1 19 96 Room Air Laboratory Tests Test 04/28/17 05:20 04/28/17 09:00 Sodium Level 142 MMOL/L (136-145) Potassium Level 3.5 MMOL/L (3.5-5.1) Chloride Level 107 MMOL/L (98-107) Carbon Dioxide Level 27 MMOL/L (21-32) Anion Gap 8 mmol/L (5-15) Blood Urea Nitrogen 2 mg/dL (7-18) L Creatinine 1.1 MG/DL (0.55-1.30) Estimat Glomerular Filtration Rate mL/min (>60) Glucose Level 99 MG/DL (74-106) Calcium Level 8.3 MG/DL (8.5-10.1) L White Blood Count 6.3 K/UL (4.8-10.8) Red Blood Count 3.16 M/UL (4.70-6.10) L Hemoglobin 10.1 G/DL (14.2-18.0) L Hematocrit 31.5 % (42.0-52.0) L Mean Corpuscular Volume 99 FL (80-99) Mean Corpuscular Hemoglobin 32.0 PG (27.0-31.0) H Mean Corpuscular Hemoglobin Concent 32.2 G/DL (32.0-36.0) Red Cell Distribution Width 14.4 % (11.6-14.8) Platelet Count 154 K/UL (150-450) Mean Platelet Volume 6.1 FL (6.5-10.1) L Neutrophils (%) (Auto) 69.8 % (45.0-75.0) Lymphocytes (%) (Auto) 12.8 % (20.0-45.0) L Monocytes (%) (Auto) 11.5 % (1.0-10.0) H Eosinophils (%) (Auto) 3.5 % (0.0-3.0) H Basophils (%) (Auto) 2.5 % (0.0-2.0) H Intake and Output 04/28/17 04/29/17 18:59 06:59 Output Total 500 ml Balance -500 ml Output Urine Total 500 ml # Voids 1 # Bowel Movements 1 Objective General Appearance: WD/WN, no apparent distress, alert EENT: PERRL/EOMI, normal ENT inspection, TMs normal Neck: non-tender, normal alignment, supple, normal inspection Cardiovascular: normal peripheral pulses, normal rate, regular rhythm, no gallop/murmur, no JVD Respiratory/Chest: chest wall non-tender, lungs clear, normal breath sounds, no respiratory distress, no accessory muscle use Abdomen: normal bowel sounds, soft, no organomegaly, guarding, rebound, tender Extremities: normal range of motion, non-tender 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 Coli-Multi drug resistant. See ID note. Continue ertapenem (3) Clostridium difficile colitis Assessment & Plan: Continue vanco and flagyl. See GI note (4) Amyloidosis Assessment & Plan: GI-see gastroenterology note (5) Multiple myeloma (6) HTN (hypertension) Assessment & Plan: Cont norvasc and lopressor (7) Anemia (8) CAD (coronary artery disease) (9) BPH (benign prostatic hyperplasia) (10) Confused Assessment & Plan: Toxic metabolic encephalopathy. See Neuro consult note. Assessment/Plan Discharge planning: [facility] acute care Fac ( [facility]) ELLY ELIAS Apr 28, 2017 11:52
[2017-04-28 12:00] VITALS: BP 127/71
[2017-04-28 20:00] VITALS: BP 128/71
[2017-04-28] MEDS: Dyna-Hex 2% Top Sol 2oz TOPIC SCH (21:10)
[2017-04-29] VITALS: BP 133/69
[2017-04-29 04:00] VITALS: BP 142/64
[2017-04-29] MEDS: D5 1/2NS 1,000 ML IV SCH ×2 (06:02→21:12)
[2017-04-29] MEDS: metroNIDAZOLE 500mg tab ORAL SCH ×2 (06:02→13:39)
--- NOTE | 2017-04-29 06:53 | General Progress Note ---
Assessment/Plan Problem List: (1) Multiple myeloma ICD Codes: C90.00 - Multiple myeloma not having achieved remission SNOMED: 849448211 (2) BPH (benign prostatic hyperplasia) ICD Codes: N40.0 - BPH (benign prostatic hyperplasia) SNOMED: 612961684 (3) HTN (hypertension) ICD Codes: I10 - Essential (primary) hypertension SNOMED: 37661034 (4) Amyloidosis ICD Codes: E85.9 - Amyloidosis, unspecified SNOMED: 69736039 Assessment/Plan s/p EGD/colonoscopy 2016 >> amyloidosis stool culture normal folate/B12 WNL Vit D deficiency abdominal U/S unremarkable PICC in place on abx monitor H&H, prn transfusions low residual/fiber diet / lactose free diet IV hydration + electrolyte replacement lomotil prn H2B fu labs fu Vit D dc planning Subjective ROS Limited/Unobtainable: Yes Allergies: Coded Allergies: No Known Allergies (Unverified , 04/23/13) Subjective no diarrhea still has some abd pain Objective Last 24 Hour Vital Signs Date Time Temp Pulse Resp B/P (MAP) Pulse Ox O2 Delivery O2 Flow Rate FiO2 04/29/17 04:00 86 04/29/17 04:00 97.3 71 18 142/64 99 Room Air 04/29/17 00:00 97.9 73 18 133/69 99 Room Air 04/29/17 00:00 67 04/28/17 21:09 83 128/71 04/28/17 20:00 97.3 83 18 128/71 100 Room Air 04/28/17 20:00 82 04/28/17 16:00 76 04/28/17 12:00 73 04/28/17 12:00 97.7 79 18 127/71 98 Room Air 04/28/17 08:25 83 143/76 04/28/17 08:25 83 143/76 04/28/17 08:00 98.1 83 19 143/76 96 Room Air 04/28/17 08:00 76 Laboratory Tests 04/28/17 09:00: White Blood Count 6.3, Red Blood Count 3.16L, Hemoglobin 10.1L, Hematocrit 31.5L , Mean Corpuscular Volume 99, Mean Corpuscular Hemoglobin 32.0H, Mean Corpuscular Hemoglobin Concent 32.2, Red Cell Distribution Width 14.4, Platelet Count 154, Mean Platelet Volume 6.1L, Neutrophils (%) (Auto) 69.8, Lymphocytes ( %) (Auto) 12.8L, Monocytes (%) (Auto) 11.5H, Eosinophils (%) (Auto) 3.5H, Basophils (%) (Auto) 2.5H Height (Feet): 6 Height (Inches): 1.00 Weight (Pounds): 197 General Appearance: alert EENT: normal ENT inspection Neck: supple Cardiovascular: normal rate Respiratory/Chest: decreased breath sounds Abdomen: normal bowel sounds, non tender, soft Extremities: non-tender KATHY WATSON Apr 29, 2017 06:53
[2017-04-29 07:55] LABS: BASOPHILS % (AUTO) 2.2 % (0.0-2.0); EOSINOPHILS % (AUTO) 3.7 % (0.0-3.0); LYMPHOCYTES % (AUTO) 17.3 % (20.0-45.0); MEAN CORPUSCULAR HGB CONC 33.1 G/DL (32.0-36.0); MEAN CORPUSCULAR VOLUME 100 FL (80-99); MEAN PLATELET VOLUME 5.6 FL (6.5-10.1); MONOCYTES % (AUTO) 8.2 % (1.0-10.0); NEUTROPHILS % (AUTO) 68.6 % (45.0-75.0); PLATELET COUNT 165 K/UL (150-450); RED BLOOD COUNT 3.16 M/UL (4.70-6.10); RED CELL DISTRIBUTION WIDTH 14.2 % (11.6-14.8); WHITE BLOOD COUNT 5.7 K/UL (4.8-10.8)
[2017-04-29 08:00] VITALS: BP 144/75
[2017-04-29 08:12] LABS: ANION GAP 9 mmol/L (5-15); CALCIUM 8.6 MG/DL (8.5-10.1); CARBON DIOXIDE 27 MMOL/L (21-32); CHLORIDE 106 MMOL/L (98-107); CREATININE 1.1 MG/DL (0.55-1.30); POTASSIUM 3.3 MMOL/L (3.5-5.1); SODIUM 142 MMOL/L (136-145)
[2017-04-29] MEDS: Nystatin Powder 100,000 units/gm 15gm TOPIC SCH ×2 (08:19→19:11)
[2017-04-29] MEDS: Tamsulosin 0.4mg cap ORAL SCH ×2 (08:19→19:16)
[2017-04-29] MEDS: Heparin 5000 units/ml inj SUBQ SCH ×2 (08:20→21:24)
[2017-04-29] MEDS: Metoprolol 25mg tab ORAL SCH ×2 (08:21→21:13)
[2017-04-29] MEDS: clonazePAM 0.5mg tab ORAL SCH ×2 (08:21→19:12)
[2017-04-29] MEDS: Vancomycin oral 125mg/2.5ml ORAL SCH ×4 (08:22→21:25)
--- NOTE | 2017-04-29 09:25 | Infectious Diseases Prog Note ---
Assessment/Plan Assessment/Plan ASSESSMENT: The patient is a 76-year-old male with: Extended spectrum beta-lactamases E. coli urinary tract UTI ; s/p RX Diarrhea due to recurrent C Diff ;continues to have significant diarrhea History of recurrent Clostridium difficile.( recent +ve 03/29/17) Acute metabolic enchephalopathy, improving Leukopenia; resolved Afebrile. History of multiple myeloma on chemo. History of GI trach amyloidosis. History of appendicitis. History of intraabdominal abscess in 2014. Hypertension. Prostate cancer. TURP. CAD. CABG PLAN: Cont pt on oral vancomycin and flagyl (extended 7 more days post abx and in view of ongoing diarrhea) while awaiting Fidaxomicin (per pharmacy, we will receive it on Wednesday 05/02) -04/27 SP Ertapenem #14 Monitor CBC Monitor BMP Discussed with RN and pharmacy staff. Subjective Allergies: Coded Allergies: No Known Allergies (Unverified , 04/23/13) Subjective afebrile no leukocytosis awaiting fidaxomicin formed stool today Objective Vital Signs Last 24 Hour Vital Signs Date Time Temp Pulse Resp B/P (MAP) Pulse Ox O2 Delivery O2 Flow Rate FiO2 04/29/17 08:22 79 144/75 04/29/17 08:21 79 144/75 04/29/17 08:00 97.9 79 18 144/75 100 Room Air 04/29/17 04:00 86 04/29/17 04:00 97.3 71 18 142/64 99 Room Air 04/29/17 00:00 97.9 73 18 133/69 99 Room Air 04/29/17 00:00 67 04/28/17 21:09 83 128/71 04/28/17 20:00 97.3 83 18 128/71 100 Room Air 04/28/17 20:00 82 04/28/17 16:00 76 04/28/17 12:00 73 04/28/17 12:00 97.7 79 18 127/71 98 Room Air Height (Feet): 6 Height (Inches): 1.00 Weight (Pounds): 197 Objective General Appearance: WD/WN, no apparent distress;more awake today, slurred speech HEENT: normocephalic, anicteric Neck: non-tender, normal alignment Respiratory/Chest: chest wall non-tender, lungs clear Cardiovascular/Chest: normal rate, regular rhythm Abdomen: non tender, soft Genitourinary/Rectal: normal genital exam, normal rectal exam Extremities: normal range of motion, non-pitting Laboratory Tests Test 04/29/17 07:30 White Blood Count 5.7 K/UL (4.8-10.8) Red Blood Count 3.16 M/UL (4.70-6.10) L Hemoglobin 10.4 G/DL (14.2-18.0) L Hematocrit 31.5 % (42.0-52.0) L Mean Corpuscular Volume 100 FL (80-99) H Mean Corpuscular Hemoglobin 33.0 PG (27.0-31.0) H Mean Corpuscular Hemoglobin Concent 33.1 G/DL (32.0-36.0) Red Cell Distribution Width 14.2 % (11.6-14.8) Platelet Count 165 K/UL (150-450) Mean Platelet Volume 5.6 FL (6.5-10.1) L Neutrophils (%) (Auto) 68.6 % (45.0-75.0) Lymphocytes (%) (Auto) 17.3 % (20.0-45.0) L Monocytes (%) (Auto) 8.2 % (1.0-10.0) Eosinophils (%) (Auto) 3.7 % (0.0-3.0) H Basophils (%) (Auto) 2.2 % (0.0-2.0) H Sodium Level 142 MMOL/L (136-145) Potassium Level 3.3 MMOL/L (3.5-5.1) L Chloride Level 106 MMOL/L (98-107) Carbon Dioxide Level 27 MMOL/L (21-32) Anion Gap 9 mmol/L (5-15) Blood Urea Nitrogen 4 mg/dL (7-18) L Creatinine 1.1 MG/DL (0.55-1.30) Estimat Glomerular Filtration Rate mL/min (>60) Glucose Level 143 MG/DL (74-106) H Calcium Level 8.6 MG/DL (8.5-10.1) Current Medications Medications (Trade) Dose Ordered Sig/Antionette Route PRN Reason Start Time Stop Time Status Last Admin Dose Admin Acetaminophen (Tylenol) 650 mg Q4H PRN ORAL fever 04/23/17 16:30 12/7/17 16:29 04/29/17 06:03 Amlodipine Besylate (Norvasc) 5 mg DAILY ORAL 04/24/17 09:00 05/13/17 08:59 04/29/17 08:22 Chlorhexidine Gluconate (Lisette-Hex 2%) 1 applic DAILY@2000 TOPIC 04/23/17 20:00 05/15/17 19:59 04/28/17 21:10 Clonazepam (KlonoPIN) 0.25 mg BID ORAL 04/24/17 13:45 05/01/17 13:44 04/29/17 08:21 Dextrose (Dextrose 50%) STAT PRN IV Hypoglycemia 04/23/17 16:30 05/23/17 16:29 Dextrose/Sodium Chloride 1,000 ml @ 75 mls/hr [id number] IV 04/23/17 17:00 05/12/17 16:59 04/29/17 06:02 Diphenoxylate HCl/ Atropine (Lomotil) 2.5 mg Q4H PRN ORAL Diarrhea 04/23/17 16:15 05/12/17 16:14 Finasteride (Proscar) 5 mg DAILY ORAL 04/24/17 09:00 05/13/17 08:59 04/29/17 08:19 Heparin Sodium (Porcine) (Heparin 5000 units/ml) 5,000 units EVERY 12 HOURS SUBQ 04/23/17 21:00 05/12/17 20:59 04/29/17 08:20 Metoprolol Tartrate (Lopressor) 25 mg Q12HR ORAL 04/23/17 21:00 05/12/17 20:59 04/29/17 08:21 Metronidazole (Flagyl) 500 mg Q8HR ORAL 04/28/17 13:00 05/05/17 12:59 04/29/17 06:02 Nitroglycerin (Ntg) 0.4 mg Q5M X 3 DOSES PRN SL Prn Chest Pain 04/23/17 16:15 05/12/17 15:44 Non-Formulary Medication (Non-Formulary Med) 1 ea DAILY ORAL 04/28/17 11:30 05/28/17 11:29 UNV Nystatin (Nystop Powder) 1 applic BID TOPIC 04/23/17 18:00 05/20/17 20:59 04/29/17 08:19 Ondansetron HCl (Zofran) 4 mg Q6H PRN IVP Nausea & Vomiting 04/23/17 16:30 05/12/17 16:29 Tamsulosin HCl (Flomax) 0.4 mg BID ORAL 04/23/17 18:00 05/12/17 17:59 04/29/17 08:19 Vancomycin HCl (Vancomycin) 250 mg FOUR TIMES A DAY ORAL 04/23/17 18:00 05/04/17 17:59 04/29/17 08:22 Yaima Nguyễn M.D. Apr 29, 2017 09:25
[2017-04-29] MEDS ORDERED: D5NS 1000ml IV ONE (10:47)
[2017-04-29] MEDS ORDERED: Tubing IV Secondary IV ONE (10:47)
--- NOTE | 2017-04-29 10:53 | Pulmonology Progress Note ---
Assessment/Plan Problems: (1) Acute encephalopathy (2) C. difficile colitis (3) Sepsis (4) Multiple myeloma (5) intermittent generalised tremors without LOC (6) r/o paraneoplastic syndrom (7) Acute on chronic renal failure (8) UTI (urinary tract infection) Assessment/Plan Cont pt on oral vancomycin no new complains dc unessential meds K supplement Neuro note appreciated all meds and note reviewed. dc planning in progress Subjective ROS Limited/Unobtainable: No HEENT: Repors: no symptoms Respiratory: Reports: no symptoms Allergies: Coded Allergies: No Known Allergies (Unverified , 04/23/13) Objective Last 24 Hour Vital Signs Date Time Temp Pulse Resp B/P (MAP) Pulse Ox O2 Delivery O2 Flow Rate FiO2 04/29/17 08:22 79 144/75 04/29/17 08:21 79 144/75 04/29/17 08:00 97.9 79 18 144/75 100 Room Air 04/29/17 08:00 81 04/29/17 04:00 86 04/29/17 04:00 97.3 71 18 142/64 99 Room Air 04/29/17 00:00 97.9 73 18 133/69 99 Room Air 04/29/17 00:00 67 04/28/17 21:09 83 128/71 04/28/17 20:00 97.3 83 18 128/71 100 Room Air 04/28/17 20:00 82 04/28/17 16:00 76 04/28/17 12:00 73 04/28/17 12:00 97.7 79 18 127/71 98 Room Air Intake and Output 04/29/17 04/30/17 19:00 07:00 Intake Total 120 ml Output Total 400 ml Balance -280 ml Intake Oral 120 ml Output Urine Total 400 ml # Voids 1 # Bowel Movements 1 Objective General Appearance: WD/WN, no apparent distress Lines, tubes and drains: peripheral, HEENT: normocephalic, anicteric Neck: non-tender, normal alignment Respiratory/Chest: chest wall non-tender, lungs clear Cardiovascular/Chest: normal rate, regular rhythm Abdomen: non tender, soft Genitourinary/Rectal: normal genital exam, normal rectal exam Extremities: normal range of motion, non-pitting Laboratory Tests 04/29/17 07:30: White Blood Count 5.7, Red Blood Count 3.16L, Hemoglobin 10.4L, Hematocrit 31.5L , Mean Corpuscular Volume 100H, Mean Corpuscular Hemoglobin 33.0H, Mean Corpuscular Hemoglobin Concent 33.1, Red Cell Distribution Width 14.2, Platelet Count 165, Mean Platelet Volume 5.6L, Neutrophils (%) (Auto) 68.6, Lymphocytes ( %) (Auto) 17.3L, Monocytes (%) (Auto) 8.2, Eosinophils (%) (Auto) 3.7H, Basophils (%) (Auto) 2.2H, Sodium Level 142, Potassium Level 3.3L, Chloride Level 106, Carbon Dioxide Level 27, Anion Gap 9, Blood Urea Nitrogen 4L, Creatinine 1.1, Estimat Glomerular Filtration Rate , Glucose Level 143H, Calcium Level 8.6 Current Medications Medications (Trade) Dose Ordered Sig/Antionette Route PRN Reason Start Time Stop Time Status Last Admin Dose Admin Acetaminophen (Tylenol) 650 mg Q4H PRN ORAL fever 04/23/17 16:30 05/12/17 16:29 04/29/17 06:03 Amlodipine Besylate (Norvasc) 5 mg DAILY ORAL 04/24/17 09:00 05/13/17 08:59 04/29/17 08:22 Chlorhexidine Gluconate (Lisette-Hex 2%) 1 applic DAILY@2000 TOPIC 04/23/17 20:00 05/15/17 19:59 04/28/17 21:10 Clonazepam (KlonoPIN) 0.25 mg BID ORAL 04/24/17 13:45 05/01/17 13:44 04/29/17 08:21 Dextrose (Dextrose 50%) STAT PRN IV Hypoglycemia 04/23/17 16:30 05/23/17 16:29 Dextrose/Sodium Chloride 1,000 ml @ 75 mls/hr [id number] IV 04/23/17 17:00 05/12/17 16:59 04/29/17 06:02 Diphenoxylate HCl/ Atropine (Lomotil) 2.5 mg Q4H PRN ORAL Diarrhea 04/23/17 16:15 05/12/17 16:14 Finasteride (Proscar) 5 mg DAILY ORAL 04/24/17 09:00 05/13/17 08:59 04/29/17 08:19 Heparin Sodium (Porcine) (Heparin 5000 units/ml) 5,000 units EVERY 12 HOURS SUBQ 04/23/17 21:00 05/12/17 20:59 04/29/17 08:20 Metoprolol Tartrate (Lopressor) 25 mg Q12HR ORAL 04/23/17 21:00 05/12/17 20:59 04/29/17 08:21 Metronidazole (Flagyl) 500 mg Q8HR ORAL 04/28/17 13:00 05/05/17 12:59 04/29/17 06:02 Nitroglycerin (Ntg) 0.4 mg Q5M X 3 DOSES PRN SL Prn Chest Pain 04/23/17 16:15 05/12/17 15:44 Non-Formulary Medication (Non-Formulary Med) 1 ea DAILY ORAL 04/28/17 11:30 05/28/17 11:29 UNV Nystatin (Nystop Powder) 1 applic BID TOPIC 04/23/17 18:00 05/20/17 20:59 04/29/17 08:19 Ondansetron HCl (Zofran) 4 mg Q6H PRN IVP Nausea & Vomiting 04/23/17 16:30 05/12/17 16:29 Tamsulosin HCl (Flomax) 0.4 mg BID ORAL 04/23/17 18:00 05/12/17 17:59 04/29/17 08:19 Vancomycin HCl (Vancomycin) 250 mg FOUR TIMES A DAY ORAL 04/23/17 18:00 05/04/17 17:59 04/29/17 08:22 GOLDEN LIM Apr 29, 2017 10:53
[2017-04-29] MEDS ORDERED: KCl 10% 40mEq/30ml liquid NG ONE (11:20)
[2017-04-29 12:00] VITALS: BP 119/81
--- NOTE | 2017-04-29 13:20 | Internal Med Progress Note ---
Subjective Date of Service: Apr 29, 2017 Physician Name Elly Elias Attending Physician Jovani Villagomez MD Current Medications Medications (Trade) Dose Ordered Sig/Antionette Route PRN Reason Start Time Stop Time Status Last Admin Dose Admin Acetaminophen (Tylenol) 650 mg Q4H PRN ORAL fever 04/23/17 16:30 05/12/17 16:29 04/29/17 06:03 Amlodipine Besylate (Norvasc) 5 mg DAILY ORAL 04/24/17 09:00 05/13/17 08:59 04/29/17 08:22 Chlorhexidine Gluconate (Lisette-Hex 2%) 1 applic DAILY@2000 TOPIC 04/23/17 20:00 05/15/17 19:59 04/28/17 21:10 Clonazepam (KlonoPIN) 0.25 mg BID ORAL 04/24/17 13:45 05/01/17 13:44 04/29/17 08:21 Dextrose (Dextrose 50%) STAT PRN IV Hypoglycemia 04/23/17 16:30 05/23/17 16:29 Dextrose/Sodium Chloride 1,000 ml @ 75 mls/hr [id number] IV 04/23/17 17:00 05/12/17 16:59 04/29/17 06:02 Diphenoxylate HCl/ Atropine (Lomotil) 2.5 mg Q4H PRN ORAL Diarrhea 04/23/17 16:15 05/12/17 16:14 Finasteride (Proscar) 5 mg DAILY ORAL 04/24/17 09:00 05/13/17 08:59 04/29/17 08:19 Heparin Sodium (Porcine) (Heparin 5000 units/ml) 5,000 units EVERY 12 HOURS SUBQ 04/23/17 21:00 05/12/17 20:59 04/29/17 08:20 Metoprolol Tartrate (Lopressor) 25 mg Q12HR ORAL 04/23/17 21:00 05/12/17 20:59 04/29/17 08:21 Metronidazole (Flagyl) 500 mg Q8HR ORAL 04/28/17 13:00 05/05/17 12:59 04/29/17 06:02 Nitroglycerin (Ntg) 0.4 mg Q5M X 3 DOSES PRN SL Prn Chest Pain 04/23/17 16:15 05/12/17 15:44 Non-Formulary Medication (Non-Formulary Med) 1 ea DAILY ORAL 04/28/17 11:30 05/28/17 11:29 UNV Nystatin (Nystop Powder) 1 applic BID TOPIC 04/23/17 18:00 05/20/17 20:59 04/29/17 08:19 Ondansetron HCl (Zofran) 4 mg Q6H PRN IVP Nausea & Vomiting 04/23/17 16:30 05/12/17 16:29 Tamsulosin HCl (Flomax) 0.4 mg BID ORAL 04/23/17 18:00 05/12/17 17:59 04/29/17 08:19 Vancomycin HCl (Vancomycin) 250 mg FOUR TIMES A DAY ORAL 04/23/17 18:00 05/04/17 17:59 04/29/17 08:22 Allergies: Coded Allergies: No Known Allergies (Unverified , 04/23/13) ROS Limited/Unobtainable: Yes Subjective 76 YO M admitted with left lower quadrant pain. Now UTI. Cover for Int Med-Dr Villagomez.. Patient confused. Await transfer to LTAC ([facility]). Objective Last Vital Signs Date Time Temp Pulse Resp B/P (MAP) Pulse Ox O2 Delivery O2 Flow Rate FiO2 04/29/17 12:00 97.7 75 18 119/81 98 Room Air Laboratory Tests Test 04/29/17 07:30 White Blood Count 5.7 K/UL (4.8-10.8) Red Blood Count 3.16 M/UL (4.70-6.10) L Hemoglobin 10.4 G/DL (14.2-18.0) L Hematocrit 31.5 % (42.0-52.0) L Mean Corpuscular Volume 100 FL (80-99) H Mean Corpuscular Hemoglobin 33.0 PG (27.0-31.0) H Mean Corpuscular Hemoglobin Concent 33.1 G/DL (32.0-36.0) Red Cell Distribution Width 14.2 % (11.6-14.8) Platelet Count 165 K/UL (150-450) Mean Platelet Volume 5.6 FL (6.5-10.1) L Neutrophils (%) (Auto) 68.6 % (45.0-75.0) Lymphocytes (%) (Auto) 17.3 % (20.0-45.0) L Monocytes (%) (Auto) 8.2 % (1.0-10.0) Eosinophils (%) (Auto) 3.7 % (0.0-3.0) H Basophils (%) (Auto) 2.2 % (0.0-2.0) H Sodium Level 142 MMOL/L (136-145) Potassium Level 3.3 MMOL/L (3.5-5.1) L Chloride Level 106 MMOL/L (98-107) Carbon Dioxide Level 27 MMOL/L (21-32) Anion Gap 9 mmol/L (5-15) Blood Urea Nitrogen 4 mg/dL (7-18) L Creatinine 1.1 MG/DL (0.55-1.30) Estimat Glomerular Filtration Rate mL/min (>60) Glucose Level 143 MG/DL (74-106) H Calcium Level 8.6 MG/DL (8.5-10.1) Intake and Output 04/29/17 04/30/17 19:00 07:00 Intake Total 120 ml Output Total 800 ml Balance -680 ml Intake Oral 120 ml Output Urine Total 800 ml # Voids 2 # Bowel Movements 1 Objective General Appearance: WD/WN, no apparent distress, alert EENT: PERRL/EOMI, normal ENT inspection, TMs normal Neck: non-tender, normal alignment, supple, normal inspection Cardiovascular: normal peripheral pulses, normal rate, regular rhythm, no gallop/murmur, no JVD Respiratory/Chest: chest wall non-tender, lungs clear, normal breath sounds, no respiratory distress, no accessory muscle use Abdomen: normal bowel sounds, soft, no organomegaly, guarding, rebound, tender Extremities: normal range of motion, non-tender 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 Coli-Multi drug resistant. See ID note. Continue ertapenem (3) Clostridium difficile colitis Assessment & Plan: Continue vanco and flagyl. See GI note (4) Amyloidosis Assessment & Plan: GI-see gastroenterology note (5) Multiple myeloma (6) HTN (hypertension) Assessment & Plan: Cont norvasc and lopressor (7) Anemia (8) CAD (coronary artery disease) (9) BPH (benign prostatic hyperplasia) (10) Confused Assessment & Plan: Toxic metabolic encephalopathy. See Neuro consult note. Status: not improved Assessment/Plan Discharge planning: [facility] ( [place]) ELLY ELIAS Apr 29, 2017 13:20
[2017-04-29 16:00] VITALS: BP 127/70
[2017-04-29 20:00] VITALS: BP 145/70
[2017-04-29] MEDS: Flagyl 500mg/NS 100ml Pre-Mix IV SCH (21:04)
[2017-04-29] MEDS: Dyna-Hex 2% Top Sol 2oz TOPIC SCH (21:12)
[2017-04-30] VITALS: BP 125/66
[2017-04-30 04:00] VITALS: BP 116/74
[2017-04-30] MEDS: Flagyl 500mg/NS 100ml Pre-Mix IV SCH ×3 (05:36→21:25)
[2017-04-30 06:04] LABS: BASOPHILS % (AUTO) 2.4 % (0.0-2.0); EOSINOPHILS % (AUTO) 3.1 % (0.0-3.0); LYMPHOCYTES % (AUTO) 16.2 % (20.0-45.0); MEAN CORPUSCULAR HEMOGLOBIN 31.8 PG (27.0-31.0); MEAN CORPUSCULAR HGB CONC 32.2 G/DL (32.0-36.0); MEAN CORPUSCULAR VOLUME 99 FL (80-99); MONOCYTES % (AUTO) 13.2 % (1.0-10.0); NEUTROPHILS % (AUTO) 65.2 % (45.0-75.0); PLATELET COUNT 184 K/UL (150-450); RED BLOOD COUNT 3.28 M/UL (4.70-6.10); RED CELL DISTRIBUTION WIDTH 14.1 % (11.6-14.8)
[2017-04-30 06:28] LABS: ALANINE AMINOTRANSFERASE 14 U/L (12-78); ALBUMIN/GLOBULIN RATIO 1.1 (1.0-2.7); ANION GAP 7 mmol/L (5-15); ASPARTATE AMINO TRANSFERASE 21 U/L (15-37); CALCIUM 8.4 MG/DL (8.5-10.1); CARBON DIOXIDE 28 MMOL/L (21-32); CHLORIDE 107 MMOL/L (98-107); CREATININE 1.2 MG/DL (0.55-1.30); MAGNESIUM 1.6 MG/DL (1.8-2.4); PHOSPHORUS 3.3 MG/DL (2.5-4.9); POTASSIUM 3.6 MMOL/L (3.5-5.1); SODIUM 142 MMOL/L (136-145); TOTAL PROTEIN 5.7 G/DL (6.4-8.2)
--- NOTE | 2017-04-30 07:40 | General Progress Note ---
Assessment/Plan Problem List: (1) Multiple myeloma ICD Codes: C90.00 - Multiple myeloma not having achieved remission SNOMED: 109977646 (2) BPH (benign prostatic hyperplasia) ICD Codes: N40.0 - BPH (benign prostatic hyperplasia) SNOMED: 697696871 (3) HTN (hypertension) ICD Codes: I10 - Essential (primary) hypertension SNOMED: 21375255 (4) Amyloidosis ICD Codes: E85.9 - Amyloidosis, unspecified SNOMED: 08755184 Assessment/Plan s/p EGD/colonoscopy 2016 >> amyloidosis stool culture normal folate/B12 WNL Vit D deficiency abdominal U/S unremarkable PICC in place on abx monitor H&H, prn transfusions low residual/fiber diet / lactose free diet IV hydration + electrolyte replacement lomotil prn H2B fu labs fu Vit D dc planning Subjective ROS Limited/Unobtainable: Yes Allergies: Coded Allergies: No Known Allergies (Unverified , 04/23/13) Subjective still has some abd pain Objective Last 24 Hour Vital Signs Date Time Temp Pulse Resp B/P (MAP) Pulse Ox O2 Delivery O2 Flow Rate FiO2 04/30/17 04:00 98.2 77 18 116/74 99 Room Air 04/30/17 00:00 98.2 75 18 125/66 99 Room Air 04/29/17 21:13 83 145/70 04/29/17 20:00 98.4 83 18 145/70 100 Room Air 04/29/17 16:00 81 04/29/17 16:00 98.2 81 18 127/70 98 Room Air 04/29/17 12:00 78 04/29/17 12:00 97.7 75 18 119/81 98 Room Air 04/29/17 08:22 79 144/75 04/29/17 08:21 79 144/75 04/29/17 08:00 97.9 79 18 144/75 100 Room Air 04/29/17 08:00 81 Laboratory Tests 04/30/17 05:45: White Blood Count 6.0, Red Blood Count 3.28L, Hemoglobin 10.4L, Hematocrit 32.4L , Mean Corpuscular Volume 99, Mean Corpuscular Hemoglobin 31.8H, Mean Corpuscular Hemoglobin Concent 32.2, Red Cell Distribution Width 14.1, Platelet Count 184, Mean Platelet Volume 6.0L, Neutrophils (%) (Auto) 65.2, Lymphocytes ( %) (Auto) 16.2L, Monocytes (%) (Auto) 13.2H, Eosinophils (%) (Auto) 3.1H, Basophils (%) (Auto) 2.4H, Sodium Level 142, Potassium Level 3.6, Chloride Level 107, Carbon Dioxide Level 28, Anion Gap 7, Blood Urea Nitrogen 4L, Creatinine 1.2, Estimat Glomerular Filtration Rate , Glucose Level 102, Calcium Level 8.4L, Phosphorus Level 3.3, Magnesium Level 1.6L, Total Bilirubin 0.7, Aspartate Amino Transf (AST/SGOT) 21, Alanine Aminotransferase (ALT/SGPT) 14, Alkaline Phosphatase 68, Total Protein 5.7L, Albumin 3.0L, Globulin 2.7, Albumin /Globulin Ratio 1.1 Height (Feet): 6 Height (Inches): 1.00 Weight (Pounds): 197 General Appearance: alert EENT: normal ENT inspection Neck: supple Cardiovascular: normal rate Respiratory/Chest: decreased breath sounds Abdomen: normal bowel sounds, non tender, soft Extremities: non-tender KATHY WATSON Apr 30, 2017 07:40
[2017-04-30 07:43] VITALS: BP 140/74
[2017-04-30] MEDS: Metoprolol 25mg tab ORAL SCH ×2 (08:39→21:30)
[2017-04-30] MEDS: Tamsulosin 0.4mg cap ORAL SCH ×2 (08:39→18:35)
[2017-04-30] MEDS: Vancomycin oral 125mg/2.5ml ORAL SCH ×4 (08:39→21:26)
[2017-04-30] MEDS: clonazePAM 0.5mg tab ORAL SCH ×2 (08:39→18:34)
[2017-04-30] MEDS: D5 1/2NS 1,000 ML IV SCH ×2 (08:40→21:28)
[2017-04-30] MEDS: Heparin 5000 units/ml inj SUBQ SCH ×2 (08:41→21:28)
[2017-04-30] MEDS: Nystatin Powder 100,000 units/gm 15gm TOPIC SCH ×2 (10:15→18:34)
[2017-04-30] MEDS ORDERED: D5 1/2NS 1000ml IV ONE (10:51)
[2017-04-30 11:58] VITALS: BP 127/76
--- NOTE | 2017-04-30 13:52 | Internal Med Progress Note ---
Subjective Date of Service: Apr 30, 2017 Physician Name Elly Elias Attending Physician Jovnai Villagomez MD Current Medications Medications (Trade) Dose Ordered Sig/Antionette Route PRN Reason Start Time Stop Time Status Last Admin Dose Admin Acetaminophen (Tylenol) 650 mg Q4H PRN ORAL fever 04/23/17 16:30 05/12/17 16:29 04/29/17 06:03 Amlodipine Besylate (Norvasc) 5 mg DAILY ORAL 04/24/17 09:00 05/13/17 08:59 04/30/17 08:39 Chlorhexidine Gluconate (Lisette-Hex 2%) 1 applic DAILY@2000 TOPIC 04/23/17 20:00 05/15/17 19:59 04/29/17 21:12 Clonazepam (KlonoPIN) 0.25 mg BID ORAL 04/24/17 13:45 05/01/17 13:44 04/30/17 08:39 Dextrose (Dextrose 50%) STAT PRN IV Hypoglycemia 04/23/17 16:30 05/23/17 16:29 Dextrose/Sodium Chloride 1,000 ml @ 75 mls/hr [id number] IV 04/23/17 17:00 05/12/17 16:59 04/30/17 08:40 Diphenoxylate HCl/ Atropine (Lomotil) 2.5 mg Q4H PRN ORAL Diarrhea 04/23/17 16:15 05/12/17 16:14 Finasteride (Proscar) 5 mg DAILY ORAL 04/24/17 09:00 05/13/17 08:59 04/30/17 08:39 Heparin Sodium (Porcine) (Heparin 5000 units/ml) 5,000 units EVERY 12 HOURS SUBQ 04/23/17 21:00 05/12/17 20:59 04/30/17 08:41 Metoprolol Tartrate (Lopressor) 25 mg Q12HR ORAL 04/23/17 21:00 05/12/17 20:59 04/30/17 08:39 Metronidazole 100 ml @ 100 mls/hr Q8HR IV 04/29/17 22:00 05/05/17 21:00 04/30/17 13:25 Nitroglycerin (Ntg) 0.4 mg Q5M X 3 DOSES PRN SL Prn Chest Pain 04/23/17 16:15 05/12/17 15:44 Non-Formulary Medication (Non-Formulary Med) 1 ea DAILY ORAL 04/28/17 11:30 05/28/17 11:29 UNV Nystatin (Nystop Powder) 1 applic BID TOPIC 04/23/17 18:00 05/20/17 20:59 04/30/17 10:15 Ondansetron HCl (Zofran) 4 mg Q6H PRN IVP Nausea & Vomiting 04/23/17 16:30 05/12/17 16:29 Tamsulosin HCl (Flomax) 0.4 mg BID ORAL 04/23/17 18:00 05/12/17 17:59 04/30/17 08:39 Vancomycin HCl (Vancomycin) 250 mg FOUR TIMES A DAY ORAL 04/23/17 18:00 05/04/17 17:59 04/30/17 13:26 Allergies: Coded Allergies: No Known Allergies (Unverified , 04/23/13) ROS Limited/Unobtainable: Yes Subjective 76 YO M admitted with left lower quadrant pain. Now UTI. Cover for Int Med-Dr Villagomez.. Patient confused. Await transfer to LTAC ([facility]). Objective Last Vital Signs Date Time Temp Pulse Resp B/P (MAP) Pulse Ox O2 Delivery O2 Flow Rate FiO2 04/30/17 11:58 98.1 83 20 127/76 98 Room Air Laboratory Tests Test 04/30/17 05:45 White Blood Count 6.0 K/UL (4.8-10.8) Red Blood Count 3.28 M/UL (4.70-6.10) L Hemoglobin 10.4 G/DL (14.2-18.0) L Hematocrit 32.4 % (42.0-52.0) L Mean Corpuscular Volume 99 FL (80-99) Mean Corpuscular Hemoglobin 31.8 PG (27.0-31.0) H Mean Corpuscular Hemoglobin Concent 32.2 G/DL (32.0-36.0) Red Cell Distribution Width 14.1 % (11.6-14.8) Platelet Count 184 K/UL (150-450) Mean Platelet Volume 6.0 FL (6.5-10.1) L Neutrophils (%) (Auto) 65.2 % (45.0-75.0) Lymphocytes (%) (Auto) 16.2 % (20.0-45.0) L Monocytes (%) (Auto) 13.2 % (1.0-10.0) H Eosinophils (%) (Auto) 3.1 % (0.0-3.0) H Basophils (%) (Auto) 2.4 % (0.0-2.0) H Sodium Level 142 MMOL/L (136-145) Potassium Level 3.6 MMOL/L (3.5-5.1) Chloride Level 107 MMOL/L (98-107) Carbon Dioxide Level 28 MMOL/L (21-32) Anion Gap 7 mmol/L (5-15) Blood Urea Nitrogen 4 mg/dL (7-18) L Creatinine 1.2 MG/DL (0.55-1.30) Estimat Glomerular Filtration Rate mL/min (>60) Glucose Level 102 MG/DL (74-106) Calcium Level 8.4 MG/DL (8.5-10.1) L Phosphorus Level 3.3 MG/DL (2.5-4.9) Magnesium Level 1.6 MG/DL (1.8-2.4) L Total Bilirubin 0.7 MG/DL (0.2-1.0) Aspartate Amino Transf (AST/SGOT) 21 U/L (15-37) Alanine Aminotransferase (ALT/SGPT) 14 U/L (12-78) Alkaline Phosphatase 68 U/L (46-116) Total Protein 5.7 G/DL (6.4-8.2) L Albumin 3.0 G/DL (3.4-5.0) L Globulin 2.7 g/dL Albumin/Globulin Ratio 1.1 (1.0-2.7) Intake and Output 04/30/17 05/01/17 19:00 07:00 Intake Total 465 ml Output Total 500 ml Balance -35 ml Intake Oral 240 ml IV Total 225 ml Output Urine Total 500 ml Objective General Appearance: WD/WN, no apparent distress, alert EENT: PERRL/EOMI, normal ENT inspection, TMs normal Neck: non-tender, normal alignment, supple, normal inspection Cardiovascular: normal peripheral pulses, normal rate, regular rhythm, no gallop/murmur, no JVD Respiratory/Chest: chest wall non-tender, lungs clear, normal breath sounds, no respiratory distress, no accessory muscle use Abdomen: normal bowel sounds, soft, no organomegaly, guarding, rebound, tender Extremities: normal range of motion, non-tender 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 Coli-Multi drug resistant. See ID note. Continue ertapenem (3) Clostridium difficile colitis Assessment & Plan: Continue vanco and flagyl. See GI note (4) Amyloidosis Assessment & Plan: GI-see gastroenterology note (5) Multiple myeloma (6) HTN (hypertension) Assessment & Plan: Cont norvasc and lopressor (7) Anemia (8) CAD (coronary artery disease) (9) BPH (benign prostatic hyperplasia) (10) Confused Assessment & Plan: Toxic metabolic encephalopathy. See Neuro consult note. Status: not improved Assessment/Plan Discharge planning: Await acceptance at [facility] ( [facility]) ELLY ELIAS Apr 30, 2017 13:52
--- NOTE | 2017-04-30 14:26 | Infectious Diseases Prog Note ---
Assessment/Plan Assessment/Plan ASSESSMENT: The patient is a 76-year-old male with: Extended spectrum beta-lactamases E. coli urinary tract UTI ; s/p RX Diarrhea due to recurrent C Diff ; no BM today History of recurrent Clostridium difficile.( recent +ve 03/29/17) Acute metabolic enchephalopathy, improving Leukopenia; resolved Afebrile. History of multiple myeloma on chemo. History of GI trach amyloidosis. History of appendicitis. History of intraabdominal abscess in 2014. Hypertension. Prostate cancer. TURP. CAD. CABG PLAN: Cont pt on oral vancomycin and flagyl (extended 7 more days post abx and in view of ongoing diarrhea) while awaiting Fidaxomicin (per pharmacy, we will receive it on Wednesday 05/02) -04/27 SP Ertapenem #14 Monitor CBC Monitor BMP Subjective Allergies: Coded Allergies: No Known Allergies (Unverified , 04/23/13) Subjective no diarrhea today Objective Vital Signs Last 24 Hour Vital Signs Date Time Temp Pulse Resp B/P (MAP) Pulse Ox O2 Delivery O2 Flow Rate FiO2 04/30/17 11:58 98.1 83 20 127/76 98 Room Air 04/30/17 08:39 85 140/74 04/30/17 08:39 85 140/74 04/30/17 07:43 98.0 85 20 140/74 100 Room Air 04/30/17 04:00 98.2 77 18 116/74 99 Room Air 04/30/17 00:00 98.2 75 18 125/66 99 Room Air 04/29/17 21:13 83 145/70 04/29/17 20:00 98.4 83 18 145/70 100 Room Air 04/29/17 16:00 81 04/29/17 16:00 98.2 81 18 127/70 98 Room Air Height (Feet): 6 Height (Inches): 1.00 Weight (Pounds): 197 HEENT: anicteric Respiratory/Chest: no respiratory distress Cardiovascular: regular rhythm Abdomen: no organomegaly Laboratory Tests Test 04/30/17 05:45 White Blood Count 6.0 K/UL (4.8-10.8) Red Blood Count 3.28 M/UL (4.70-6.10) L Hemoglobin 10.4 G/DL (14.2-18.0) L Hematocrit 32.4 % (42.0-52.0) L Mean Corpuscular Volume 99 FL (80-99) Mean Corpuscular Hemoglobin 31.8 PG (27.0-31.0) H Mean Corpuscular Hemoglobin Concent 32.2 G/DL (32.0-36.0) Red Cell Distribution Width 14.1 % (11.6-14.8) Platelet Count 184 K/UL (150-450) Mean Platelet Volume 6.0 FL (6.5-10.1) L Neutrophils (%) (Auto) 65.2 % (45.0-75.0) Lymphocytes (%) (Auto) 16.2 % (20.0-45.0) L Monocytes (%) (Auto) 13.2 % (1.0-10.0) H Eosinophils (%) (Auto) 3.1 % (0.0-3.0) H Basophils (%) (Auto) 2.4 % (0.0-2.0) H Sodium Level 142 MMOL/L (136-145) Potassium Level 3.6 MMOL/L (3.5-5.1) Chloride Level 107 MMOL/L (98-107) Carbon Dioxide Level 28 MMOL/L (21-32) Anion Gap 7 mmol/L (5-15) Blood Urea Nitrogen 4 mg/dL (7-18) L Creatinine 1.2 MG/DL (0.55-1.30) Estimat Glomerular Filtration Rate mL/min (>60) Glucose Level 102 MG/DL (74-106) Calcium Level 8.4 MG/DL (8.5-10.1) L Phosphorus Level 3.3 MG/DL (2.5-4.9) Magnesium Level 1.6 MG/DL (1.8-2.4) L Total Bilirubin 0.7 MG/DL (0.2-1.0) Aspartate Amino Transf (AST/SGOT) 21 U/L (15-37) Alanine Aminotransferase (ALT/SGPT) 14 U/L (12-78) Alkaline Phosphatase 68 U/L (46-116) Total Protein 5.7 G/DL (6.4-8.2) L Albumin 3.0 G/DL (3.4-5.0) L Globulin 2.7 g/dL Albumin/Globulin Ratio 1.1 (1.0-2.7) Current Medications Medications (Trade) Dose Ordered Sig/Antionette Route PRN Reason Start Time Stop Time Status Last Admin Dose Admin Acetaminophen (Tylenol) 650 mg Q4H PRN ORAL fever 04/23/17 16:30 05/12/17 16:29 04/29/17 06:03 Amlodipine Besylate (Norvasc) 5 mg DAILY ORAL 04/24/17 09:00 05/13/17 08:59 04/30/17 08:39 Chlorhexidine Gluconate (Lisette-Hex 2%) 1 applic DAILY@2000 TOPIC 04/23/17 20:00 05/15/17 19:59 04/29/17 21:12 Clonazepam (KlonoPIN) 0.25 mg BID ORAL 04/24/17 13:45 05/01/17 13:44 04/30/17 08:39 Dextrose (Dextrose 50%) STAT PRN IV Hypoglycemia 04/23/17 16:30 05/23/17 16:29 Dextrose/Sodium Chloride 1,000 ml @ 75 mls/hr [id number] IV 04/23/17 17:00 05/12/17 16:59 04/30/17 08:40 Diphenoxylate HCl/ Atropine (Lomotil) 2.5 mg Q4H PRN ORAL Diarrhea 04/23/17 16:15 05/12/17 16:14 Finasteride (Proscar) 5 mg DAILY ORAL 04/24/17 09:00 05/13/17 08:59 04/30/17 08:39 Heparin Sodium (Porcine) (Heparin 5000 units/ml) 5,000 units EVERY 12 HOURS SUBQ 04/23/17 21:00 05/12/17 20:59 04/30/17 08:41 Metoprolol Tartrate (Lopressor) 25 mg Q12HR ORAL 04/23/17 21:00 05/12/17 20:59 04/30/17 08:39 Metronidazole 100 ml @ 100 mls/hr Q8HR IV 04/29/17 22:00 05/05/17 21:00 04/30/17 13:25 Nitroglycerin (Ntg) 0.4 mg Q5M X 3 DOSES PRN SL Prn Chest Pain 04/23/17 16:15 05/12/17 15:44 Non-Formulary Medication (Non-Formulary Med) 1 ea DAILY ORAL 04/28/17 11:30 05/28/17 11:29 UNV Nystatin (Nystop Powder) 1 applic BID TOPIC 04/23/17 18:00 05/20/17 20:59 04/30/17 10:15 Ondansetron HCl (Zofran) 4 mg Q6H PRN IVP Nausea & Vomiting 04/23/17 16:30 05/12/17 16:29 Tamsulosin HCl (Flomax) 0.4 mg BID ORAL 04/23/17 18:00 05/12/17 17:59 04/30/17 08:39 Vancomycin HCl (Vancomycin) 250 mg FOUR TIMES A DAY ORAL 04/23/17 18:00 05/04/17 17:59 04/30/17 13:26 SRIKANTH ANAND M.D. Apr 30, 2017 14:26
[2017-04-30 15:36] VITALS: BP 108/56
--- NOTE | 2017-04-30 16:20 | Pulmonology Progress Note ---
Assessment/Plan Problems: (1) Acute encephalopathy (2) C. difficile colitis (3) Sepsis (4) Multiple myeloma (5) intermittent generalised tremors without LOC (6) r/o paraneoplastic syndrom (7) Acute on chronic renal failure (8) UTI (urinary tract infection) Assessment/Plan Cont pt on oral vancomycin no new complains improving dc unessential meds K supplement Neuro note appreciated all meds and note reviewed. dc planning in progress Subjective ROS Limited/Unobtainable: No Interval Events: more awake Allergies: Coded Allergies: No Known Allergies (Unverified , 04/23/13) Objective Last 24 Hour Vital Signs Date Time Temp Pulse Resp B/P (MAP) Pulse Ox O2 Delivery O2 Flow Rate FiO2 04/30/17 15:36 98.4 83 20 108/56 99 Room Air 04/30/17 11:58 98.1 83 20 127/76 98 Room Air 04/30/17 08:39 85 140/74 04/30/17 08:39 85 140/74 04/30/17 07:43 98.0 85 20 140/74 100 Room Air 04/30/17 04:00 98.2 77 18 116/74 99 Room Air 04/30/17 00:00 98.2 75 18 125/66 99 Room Air 04/29/17 21:13 83 145/70 04/29/17 20:00 98.4 83 18 145/70 100 Room Air Intake and Output 04/30/17 05/01/17 19:00 07:00 Intake Total 795 ml Output Total 500 ml Balance 295 ml Intake Oral 420 ml IV Total 375 ml Output Urine Total 500 ml # Voids 1 # Bowel Movements 1 Objective General Appearance: WD/WN, no apparent distress Lines, tubes and drains: peripheral, HEENT: normocephalic, anicteric Neck: non-tender, normal alignment Respiratory/Chest: chest wall non-tender, lungs clear Cardiovascular/Chest: normal rate, regular rhythm Abdomen: non tender, soft Genitourinary/Rectal: normal genital exam, normal rectal exam Extremities: normal range of motion, non-pitting Laboratory Tests 04/30/17 05:45: White Blood Count 6.0, Red Blood Count 3.28L, Hemoglobin 10.4L, Hematocrit 32.4L , Mean Corpuscular Volume 99, Mean Corpuscular Hemoglobin 31.8H, Mean Corpuscular Hemoglobin Concent 32.2, Red Cell Distribution Width 14.1, Platelet Count 184, Mean Platelet Volume 6.0L, Neutrophils (%) (Auto) 65.2, Lymphocytes ( %) (Auto) 16.2L, Monocytes (%) (Auto) 13.2H, Eosinophils (%) (Auto) 3.1H, Basophils (%) (Auto) 2.4H, Sodium Level 142, Potassium Level 3.6, Chloride Level 107, Carbon Dioxide Level 28, Anion Gap 7, Blood Urea Nitrogen 4L, Creatinine 1.2, Estimat Glomerular Filtration Rate , Glucose Level 102, Calcium Level 8.4L, Phosphorus Level 3.3, Magnesium Level 1.6L, Total Bilirubin 0.7, Aspartate Amino Transf (AST/SGOT) 21, Alanine Aminotransferase (ALT/SGPT) 14, Alkaline Phosphatase 68, Total Protein 5.7L, Albumin 3.0L, Globulin 2.7, Albumin /Globulin Ratio 1.1 Current Medications Medications (Trade) Dose Ordered Sig/Antionette Route PRN Reason Start Time Stop Time Status Last Admin Dose Admin Acetaminophen (Tylenol) 650 mg Q4H PRN ORAL Mild Pain/Temp > 100.5 04/30/17 16:30 05/30/17 16:29 Amlodipine Besylate (Norvasc) 5 mg DAILY ORAL 04/24/17 09:00 05/13/17 08:59 04/30/17 08:39 Chlorhexidine Gluconate (Lisette-Hex 2%) 1 applic DAILY@2000 TOPIC 04/23/17 20:00 05/15/17 19:59 04/29/17 21:12 Clonazepam (KlonoPIN) 0.25 mg BID ORAL 04/24/17 13:45 05/01/17 13:44 04/30/17 08:39 Dextrose (Dextrose 50%) STAT PRN IV Hypoglycemia 04/23/17 16:30 05/23/17 16:29 Dextrose/Sodium Chloride 1,000 ml @ 75 mls/hr [id number] IV 04/23/17 17:00 05/12/17 16:59 04/30/17 08:40 Diphenoxylate HCl/ Atropine (Lomotil) 2.5 mg Q4H PRN ORAL Diarrhea 04/23/17 16:15 12/7/17 16:14 Finasteride (Proscar) 5 mg DAILY ORAL 04/24/17 09:00 05/13/17 08:59 04/30/17 08:39 Heparin Sodium (Porcine) (Heparin 5000 units/ml) 5,000 units EVERY 12 HOURS SUBQ 04/23/17 21:00 05/12/17 20:59 04/30/17 08:41 Metoprolol Tartrate (Lopressor) 25 mg Q12HR ORAL 04/23/17 21:00 05/12/17 20:59 04/30/17 08:39 Metronidazole 100 ml @ 100 mls/hr Q8HR IV 04/29/17 22:00 05/05/17 21:00 04/30/17 13:25 Nitroglycerin (Ntg) 0.4 mg Q5M X 3 DOSES PRN SL Prn Chest Pain 04/23/17 16:15 05/12/17 15:44 Non-Formulary Medication (Non-Formulary Med) 1 ea DAILY ORAL 04/28/17 11:30 05/28/17 11:29 UNV Nystatin (Nystop Powder) 1 applic BID TOPIC 04/23/17 18:00 05/20/17 20:59 04/30/17 10:15 Ondansetron HCl (Zofran) 4 mg Q6H PRN IVP Nausea & Vomiting 04/23/17 16:30 05/12/17 16:29 Tamsulosin HCl (Flomax) 0.4 mg BID ORAL 04/23/17 18:00 05/12/17 17:59 04/30/17 08:39 Vancomycin HCl (Vancomycin) 250 mg FOUR TIMES A DAY ORAL 04/23/17 18:00 05/04/17 17:59 04/30/17 13:26 GOLDEN LIM Apr 30, 2017 16:20
[2017-04-30 20:00] VITALS: BP 125/66
[2017-04-30] MEDS: Dyna-Hex 2% Top Sol 2oz TOPIC SCH (21:25)
[2017-04-30] MEDS: Lomotil 2.5mg tab ORAL PRN (22:40)
[2017-05-01] VITALS: BP 125/64
[2017-05-01 04:00] VITALS: BP 123/67
[2017-05-01] MEDS: Flagyl 500mg/NS 100ml Pre-Mix IV SCH ×3 (05:32→22:13)
[2017-05-01 06:07] LABS: BASOPHILS % (AUTO) 1.1 % (0.0-2.0); EOSINOPHILS % (AUTO) 3.5 % (0.0-3.0); LYMPHOCYTES % (AUTO) 17.6 % (20.0-45.0); MEAN CORPUSCULAR HEMOGLOBIN 31.7 PG (27.0-31.0); MEAN CORPUSCULAR HGB CONC 31.7 G/DL (32.0-36.0); MEAN CORPUSCULAR VOLUME 100 FL (80-99); MEAN PLATELET VOLUME 6.2 FL (6.5-10.1); MONOCYTES % (AUTO) 13.2 % (1.0-10.0); NEUTROPHILS % (AUTO) 64.6 % (45.0-75.0); PLATELET COUNT 187 K/UL (150-450); RED BLOOD COUNT 3.32 M/UL (4.70-6.10); RED CELL DISTRIBUTION WIDTH 14.3 % (11.6-14.8); WHITE BLOOD COUNT 5.9 K/UL (4.8-10.8)
[2017-05-01 06:19] LABS: MAGNESIUM 1.5 MG/DL (1.8-2.4); PHOSPHORUS 3.2 MG/DL (2.5-4.9)
[2017-05-01 06:21] LABS: ALANINE AMINOTRANSFERASE 13 U/L (12-78); ALBUMIN/GLOBULIN RATIO 1.1 (1.0-2.7); ANION GAP 7 mmol/L (5-15); ASPARTATE AMINO TRANSFERASE 21 U/L (15-37); CALCIUM 8.7 MG/DL (8.5-10.1); CARBON DIOXIDE 27 MMOL/L (21-32); CHLORIDE 109 MMOL/L (98-107); CREATININE 1.2 MG/DL (0.55-1.30); POTASSIUM 3.4 MMOL/L (3.5-5.1); SODIUM 143 MMOL/L (136-145); TOTAL PROTEIN 5.8 G/DL (6.4-8.2)
--- NOTE | 2017-05-01 07:17 | General Progress Note ---
Assessment/Plan Problem List: (1) Multiple myeloma ICD Codes: C90.00 - Multiple myeloma not having achieved remission SNOMED: 968166272 (2) BPH (benign prostatic hyperplasia) ICD Codes: N40.0 - BPH (benign prostatic hyperplasia) SNOMED: 584639567 (3) HTN (hypertension) ICD Codes: I10 - Essential (primary) hypertension SNOMED: 24878734 (4) Amyloidosis ICD Codes: E85.9 - Amyloidosis, unspecified SNOMED: 27141782 Assessment/Plan s/p EGD/colonoscopy 2016 >> amyloidosis stool culture normal folate/B12 WNL Vit D deficiency abdominal U/S unremarkable PICC in place on abx monitor H&H, prn transfusions low residual/fiber diet / lactose free diet IV hydration + electrolyte replacement lomotil prn H2B fu labs fu Vit D dc planning Subjective ROS Limited/Unobtainable: Yes Allergies: Coded Allergies: No Known Allergies (Unverified , 04/23/13) Subjective no event over night still has some abd pain Objective Last 24 Hour Vital Signs Date Time Temp Pulse Resp B/P (MAP) Pulse Ox O2 Delivery O2 Flow Rate FiO2 05/01/17 04:00 98.1 73 20 123/67 100 Room Air 05/01/17 00:00 98.1 76 22 125/64 100 Room Air 04/30/17 21:30 82 125/66 04/30/17 20:00 98.2 82 21 125/66 98 Room Air 04/30/17 15:36 98.4 83 20 108/56 99 Room Air 04/30/17 11:58 98.1 83 20 127/76 98 Room Air 04/30/17 08:39 85 140/74 04/30/17 08:39 85 140/74 04/30/17 07:43 98.0 85 20 140/74 100 Room Air Laboratory Tests 05/01/17 05:41: White Blood Count 5.9, Red Blood Count 3.32L, Hemoglobin 10.5L, Hematocrit 33.2L , Mean Corpuscular Volume 100H, Mean Corpuscular Hemoglobin 31.7H, Mean Corpuscular Hemoglobin Concent 31.7L, Red Cell Distribution Width 14.3, Platelet Count 187, Mean Platelet Volume 6.2L, Neutrophils (%) (Auto) 64.6, Lymphocytes (%) (Auto) 17.6L, Monocytes (%) (Auto) 13.2H, Eosinophils (%) (Auto ) 3.5H, Basophils (%) (Auto) 1.1, Sodium Level 143, Potassium Level 3.4L, Chloride Level 109H, Carbon Dioxide Level 27, Anion Gap 7, Blood Urea Nitrogen 4L, Creatinine 1.2, Estimat Glomerular Filtration Rate , Glucose Level 96, Calcium Level 8.7, Phosphorus Level 3.2, Magnesium Level 1.5L, Total Bilirubin 0.6, Aspartate Amino Transf (AST/SGOT) 21, Alanine Aminotransferase (ALT/SGPT) 13, Alkaline Phosphatase 70, Total Protein 5.8L, Albumin 3.1L, Globulin 2.7, Albumin/Globulin Ratio 1.1 Height (Feet): 6 Height (Inches): 1.00 Weight (Pounds): 197 General Appearance: alert EENT: normal ENT inspection Neck: supple Cardiovascular: normal rate Respiratory/Chest: decreased breath sounds Abdomen: normal bowel sounds, non tender, soft Extremities: non-tender KATHY WATSON May 01, 2017 07:17
[2017-05-01 08:00] VITALS: BP 130/61
[2017-05-01] MEDS: Lomotil 2.5mg tab ORAL PRN (09:10)
[2017-05-01] MEDS: clonazePAM 0.5mg tab ORAL SCH (09:10)
[2017-05-01] MEDS: Tamsulosin 0.4mg cap ORAL SCH ×2 (09:10→17:22)
[2017-05-01] MEDS: Metoprolol 25mg tab ORAL SCH ×2 (09:10→21:00)
[2017-05-01] MEDS: Vancomycin oral 125mg/2.5ml ORAL SCH ×4 (09:11→21:24)
[2017-05-01] MEDS: Heparin 5000 units/ml inj SUBQ SCH ×2 (09:11→21:25)
[2017-05-01] MEDS: Nystatin Powder 100,000 units/gm 15gm TOPIC SCH ×2 (09:11→17:25)
[2017-05-01] MEDS ORDERED: D5 1/2NS 1000ml IV ONE ×2 (09:11→21:16)
[2017-05-01] MEDS: D5 1/2NS 1,000 ML IV SCH ×2 (11:19→15:43)
[2017-05-01 12:00] VITALS: BP 129/60
--- NOTE | 2017-05-01 14:00 | Internal Med Progress Note ---
Subjective Date of Service: May 01, 2017 Physician Name Elly Elias Attending Physician Jovani Villagomez MD Current Medications Medications (Trade) Dose Ordered Sig/Antionette Route PRN Reason Start Time Stop Time Status Last Admin Dose Admin Acetaminophen (Tylenol) 650 mg Q4H PRN ORAL Mild Pain/Temp > 100.5 04/30/17 16:30 05/30/17 16:29 04/30/17 16:32 Amlodipine Besylate (Norvasc) 5 mg DAILY ORAL 04/24/17 09:00 05/13/17 08:59 05/01/17 09:10 Chlorhexidine Gluconate (Lisette-Hex 2%) 1 applic DAILY@2000 TOPIC 04/23/17 20:00 05/15/17 19:59 04/30/17 21:25 Dextrose (Dextrose 50%) STAT PRN IV Hypoglycemia 04/23/17 16:30 05/23/17 16:29 Dextrose/Sodium Chloride 1,000 ml @ 75 mls/hr [id number] IV 04/23/17 17:00 05/12/17 16:59 05/01/17 11:19 Diphenoxylate HCl/ Atropine (Lomotil) 2.5 mg Q4H PRN ORAL Diarrhea 04/23/17 16:15 05/12/17 16:14 05/01/17 09:10 Finasteride (Proscar) 5 mg DAILY ORAL 04/24/17 09:00 05/13/17 08:59 05/01/17 09:10 Heparin Sodium (Porcine) (Heparin 5000 units/ml) 5,000 units EVERY 12 HOURS SUBQ 04/23/17 21:00 05/12/17 20:59 05/01/17 09:11 Metoprolol Tartrate (Lopressor) 25 mg Q12HR ORAL 04/23/17 21:00 05/12/17 20:59 05/01/17 09:10 Metronidazole 100 ml @ 100 mls/hr Q8HR IV 04/29/17 22:00 05/05/17 21:00 05/01/17 13:26 Nitroglycerin (Ntg) 0.4 mg Q5M X 3 DOSES PRN SL Prn Chest Pain 04/23/17 16:15 05/12/17 15:44 Non-Formulary Medication (Non-Formulary Med) 1 ea DAILY ORAL 04/28/17 11:30 05/28/17 11:29 UNV Nystatin (Nystop Powder) 1 applic BID TOPIC 04/23/17 18:00 05/20/17 20:59 05/01/17 09:11 Ondansetron HCl (Zofran) 4 mg Q6H PRN IVP Nausea & Vomiting 04/23/17 16:30 05/12/17 16:29 Tamsulosin HCl (Flomax) 0.4 mg BID ORAL 04/23/17 18:00 05/12/17 17:59 05/01/17 09:10 Vancomycin HCl (Vancomycin) 250 mg FOUR TIMES A DAY ORAL 04/23/17 18:00 05/04/17 17:59 05/01/17 13:27 Allergies: Coded Allergies: No Known Allergies (Unverified , 04/23/13) ROS Limited/Unobtainable: Yes Subjective 76 YO M admitted with left lower quadrant pain. Now UTI. Cover for Int Med-Dr Villagomez.. Patient confused. Await transfer to [facility] ([place]). Objective Last Vital Signs Date Time Temp Pulse Resp B/P (MAP) Pulse Ox O2 Delivery O2 Flow Rate FiO2 05/01/17 09:10 77 130/61 05/01/17 08:00 97.3 18 99 Room Air Laboratory Tests Test 05/01/17 05:41 White Blood Count 5.9 K/UL (4.8-10.8) Red Blood Count 3.32 M/UL (4.70-6.10) L Hemoglobin 10.5 G/DL (14.2-18.0) L Hematocrit 33.2 % (42.0-52.0) L Mean Corpuscular Volume 100 FL (80-99) H Mean Corpuscular Hemoglobin 31.7 PG (27.0-31.0) H Mean Corpuscular Hemoglobin Concent 31.7 G/DL (32.0-36.0) L Red Cell Distribution Width 14.3 % (11.6-14.8) Platelet Count 187 K/UL (150-450) Mean Platelet Volume 6.2 FL (6.5-10.1) L Neutrophils (%) (Auto) 64.6 % (45.0-75.0) Lymphocytes (%) (Auto) 17.6 % (20.0-45.0) L Monocytes (%) (Auto) 13.2 % (1.0-10.0) H Eosinophils (%) (Auto) 3.5 % (0.0-3.0) H Basophils (%) (Auto) 1.1 % (0.0-2.0) Sodium Level 143 MMOL/L (136-145) Potassium Level 3.4 MMOL/L (3.5-5.1) L Chloride Level 109 MMOL/L (98-107) H Carbon Dioxide Level 27 MMOL/L (21-32) Anion Gap 7 mmol/L (5-15) Blood Urea Nitrogen 4 mg/dL (7-18) L Creatinine 1.2 MG/DL (0.55-1.30) Estimat Glomerular Filtration Rate mL/min (>60) Glucose Level 96 MG/DL (74-106) Calcium Level 8.7 MG/DL (8.5-10.1) Phosphorus Level 3.2 MG/DL (2.5-4.9) Magnesium Level 1.5 MG/DL (1.8-2.4) L Total Bilirubin 0.6 MG/DL (0.2-1.0) Aspartate Amino Transf (AST/SGOT) 21 U/L (15-37) Alanine Aminotransferase (ALT/SGPT) 13 U/L (12-78) Alkaline Phosphatase 70 U/L (46-116) Total Protein 5.8 G/DL (6.4-8.2) L Albumin 3.1 G/DL (3.4-5.0) L Globulin 2.7 g/dL Albumin/Globulin Ratio 1.1 (1.0-2.7) Intake and Output 05/01/17 05/02/17 19:00 07:00 Intake Total 300 ml Balance 300 ml IV Total 300 ml Objective General Appearance: WD/WN, no apparent distress, alert EENT: PERRL/EOMI, normal ENT inspection, TMs normal Neck: non-tender, normal alignment, supple, normal inspection Cardiovascular: normal peripheral pulses, normal rate, regular rhythm, no gallop/murmur, no JVD Respiratory/Chest: chest wall non-tender, lungs clear, normal breath sounds, no respiratory distress, no accessory muscle use Abdomen: normal bowel sounds, soft, no organomegaly, guarding, rebound, tender Extremities: normal range of motion, non-tender 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 Coli-Multi drug resistant. See ID note. Continue ertapenem (3) Clostridium difficile colitis Assessment & Plan: Continue vanco and flagyl. See GI note (4) Amyloidosis Assessment & Plan: GI-see gastroenterology note (5) Multiple myeloma (6) HTN (hypertension) Assessment & Plan: Cont norvasc and lopressor (7) Anemia (8) CAD (coronary artery disease) (9) BPH (benign prostatic hyperplasia) (10) Confused Assessment & Plan: Toxic metabolic encephalopathy. See Neuro consult note. Assessment/Plan Discharge planning: Await acceptance at [facility] ( [place]) ELLY ELIAS May 01, 2017 14:00
--- NOTE | 2017-05-01 14:16 | Pulmonology Progress Note ---
Assessment/Plan Problems: (1) Acute encephalopathy (2) C. difficile colitis (3) Sepsis (4) Multiple myeloma (5) intermittent generalised tremors without LOC (6) r/o paraneoplastic syndrom (7) Acute on chronic renal failure (8) UTI (urinary tract infection) Assessment/Plan decrease IV fluids no new complains improving dc unessential meds K supplement Neuro note appreciated all meds and note reviewed. dc planning in progress Subjective ROS Limited/Unobtainable: No Constitutional: Reports: no symptoms HEENT: Repors: no symptoms Respiratory: Reports: no symptoms Allergies: Coded Allergies: No Known Allergies (Unverified , 04/23/13) Objective Last 24 Hour Vital Signs Date Time Temp Pulse Resp B/P (MAP) Pulse Ox O2 Delivery O2 Flow Rate FiO2 05/01/17 09:10 77 130/61 05/01/17 09:10 77 130/61 05/01/17 08:00 97.3 78 18 130/61 99 Room Air 05/01/17 04:00 98.1 73 20 123/67 100 Room Air 05/01/17 00:00 98.1 76 22 125/64 100 Room Air 04/30/17 21:30 82 125/66 04/30/17 20:00 98.2 82 21 125/66 98 Room Air 04/30/17 15:36 98.4 83 20 108/56 99 Room Air Intake and Output 05/01/17 05/02/17 19:00 07:00 Intake Total 450 ml Balance 450 ml IV Total 450 ml Objective General Appearance: WD/WN, no apparent distress Lines, tubes and drains: peripheral, HEENT: normocephalic, anicteric Neck: non-tender, normal alignment Respiratory/Chest: chest wall non-tender, lungs clear Cardiovascular/Chest: normal rate, regular rhythm Abdomen: non tender, soft Genitourinary/Rectal: normal genital exam, normal rectal exam Extremities: normal range of motion, non-pitting Laboratory Tests 05/01/17 05:41: White Blood Count 5.9, Red Blood Count 3.32L, Hemoglobin 10.5L, Hematocrit 33.2L , Mean Corpuscular Volume 100H, Mean Corpuscular Hemoglobin 31.7H, Mean Corpuscular Hemoglobin Concent 31.7L, Red Cell Distribution Width 14.3, Platelet Count 187, Mean Platelet Volume 6.2L, Neutrophils (%) (Auto) 64.6, Lymphocytes (%) (Auto) 17.6L, Monocytes (%) (Auto) 13.2H, Eosinophils (%) (Auto ) 3.5H, Basophils (%) (Auto) 1.1, Sodium Level 143, Potassium Level 3.4L, Chloride Level 109H, Carbon Dioxide Level 27, Anion Gap 7, Blood Urea Nitrogen 4L, Creatinine 1.2, Estimat Glomerular Filtration Rate , Glucose Level 96, Calcium Level 8.7, Phosphorus Level 3.2, Magnesium Level 1.5L, Total Bilirubin 0.6, Aspartate Amino Transf (AST/SGOT) 21, Alanine Aminotransferase (ALT/SGPT) 13, Alkaline Phosphatase 70, Total Protein 5.8L, Albumin 3.1L, Globulin 2.7, Albumin/Globulin Ratio 1.1 Current Medications Medications (Trade) Dose Ordered Sig/Antionette Route PRN Reason Start Time Stop Time Status Last Admin Dose Admin Acetaminophen (Tylenol) 650 mg Q4H PRN ORAL Mild Pain/Temp > 100.5 04/30/17 16:30 05/30/17 16:29 04/30/17 16:32 Amlodipine Besylate (Norvasc) 5 mg DAILY ORAL 04/24/17 09:00 05/13/17 08:59 05/01/17 09:10 Chlorhexidine Gluconate (Lisette-Hex 2%) 1 applic DAILY@2000 TOPIC 04/23/17 20:00 05/15/17 19:59 04/30/17 21:25 Dextrose (Dextrose 50%) STAT PRN IV Hypoglycemia 04/23/17 16:30 05/23/17 16:29 Dextrose/Sodium Chloride 1,000 ml @ 75 mls/hr [id number] IV 04/23/17 17:00 05/12/17 16:59 05/01/17 11:19 Diphenoxylate HCl/ Atropine (Lomotil) 2.5 mg Q4H PRN ORAL Diarrhea 04/23/17 16:15 05/12/17 16:14 05/01/17 09:10 Finasteride (Proscar) 5 mg DAILY ORAL 04/24/17 09:00 05/13/17 08:59 05/01/17 09:10 Heparin Sodium (Porcine) (Heparin 5000 units/ml) 5,000 units EVERY 12 HOURS SUBQ 04/23/17 21:00 05/12/17 20:59 05/01/17 09:11 Metoprolol Tartrate (Lopressor) 25 mg Q12HR ORAL 04/23/17 21:00 05/12/17 20:59 05/01/17 09:10 Metronidazole 100 ml @ 100 mls/hr Q8HR IV 04/29/17 22:00 05/05/17 21:00 05/01/17 13:26 Nitroglycerin (Ntg) 0.4 mg Q5M X 3 DOSES PRN SL Prn Chest Pain 04/23/17 16:15 05/12/17 15:44 Non-Formulary Medication (Non-Formulary Med) 1 ea DAILY ORAL 04/28/17 11:30 05/28/17 11:29 UNV Nystatin (Nystop Powder) 1 applic BID TOPIC 04/23/17 18:00 05/20/17 20:59 05/01/17 09:11 Ondansetron HCl (Zofran) 4 mg Q6H PRN IVP Nausea & Vomiting 04/23/17 16:30 05/12/17 16:29 Potassium Chloride (K-Dur) 40 meq ONCE ONCE ORAL 05/01/17 14:00 05/01/17 14:01 UNV Tamsulosin HCl (Flomax) 0.4 mg BID ORAL 04/23/17 18:00 05/12/17 17:59 05/01/17 09:10 Vancomycin HCl (Vancomycin) 250 mg FOUR TIMES A DAY ORAL 04/23/17 18:00 05/04/17 17:59 05/01/17 13:27 GOLDEN LIM May 01, 2017 14:16
[2017-05-01 16:00] VITALS: BP 125/52
[2017-05-01 20:15] VITALS: BP 112/57
[2017-05-01] MEDS ORDERED: Tubing IV Secondary IV ONE (21:16)
[2017-05-01] MEDS: Dyna-Hex 2% Top Sol 2oz TOPIC SCH (21:23)
[2017-05-02 00:49] VITALS: BP 119/56
[2017-05-02 04:22] VITALS: BP 118/64
[2017-05-02] MEDS: Flagyl 500mg/NS 100ml Pre-Mix IV SCH ×2 (05:13→13:46)
[2017-05-02] MEDS: D5 1/2NS 1,000 ML IV SCH (05:14)
[2017-05-02 07:03] LABS: BASOPHILS % (AUTO) 1.3 % (0.0-2.0); EOSINOPHILS % (AUTO) 3.9 % (0.0-3.0); LYMPHOCYTES % (AUTO) 20.3 % (20.0-45.0); MEAN CORPUSCULAR HEMOGLOBIN 32.7 PG (27.0-31.0); MEAN CORPUSCULAR HGB CONC 32.9 G/DL (32.0-36.0); MEAN CORPUSCULAR VOLUME 99 FL (80-99); MEAN PLATELET VOLUME 6.1 FL (6.5-10.1); MONOCYTES % (AUTO) 13.5 % (1.0-10.0); PLATELET COUNT 150 K/UL (150-450); RED CELL DISTRIBUTION WIDTH 14.3 % (11.6-14.8); WHITE BLOOD COUNT 5.2 K/UL (4.8-10.8)
[2017-05-02 07:18] LABS: ANION GAP 9 mmol/L (5-15); CALCIUM 8.6 MG/DL (8.5-10.1); CARBON DIOXIDE 24 MMOL/L (21-32); CHLORIDE 109 MMOL/L (98-107); CREATININE 1.2 MG/DL (0.55-1.30); POTASSIUM 3.6 MMOL/L (3.5-5.1); SODIUM 142 MMOL/L (136-145)
[2017-05-02 08:00] VITALS: BP 145/76
[2017-05-02] MEDS: Heparin 5000 units/ml inj SUBQ SCH (09:00)
[2017-05-02] MEDS: Tamsulosin 0.4mg cap ORAL SCH ×2 (09:16→18:57)
[2017-05-02] MEDS: Metoprolol 25mg tab ORAL SCH (09:18)
[2017-05-02] MEDS: Vancomycin oral 125mg/2.5ml ORAL SCH ×3 (09:19→18:58)
[2017-05-02] MEDS: Nystatin Powder 100,000 units/gm 15gm TOPIC SCH ×2 (10:35→18:59)
--- NOTE | 2017-05-02 10:37 | GI Progress Note ---
Assessment/Plan Problems: (1) Chemotherapy-induced diarrhea ICD Codes: K52.1 - Toxic gastroenteritis and colitis; T45.1X5A - Adverse effect of antineoplastic and immunosuppressive drugs, initial encounter SNOMED: 240155478, 597990972 (2) Clostridium difficile colitis ICD Codes: A04.7 - Enterocolitis due to Clostridium difficile SNOMED: 041776456 (3) Anemia ICD Codes: D64.9 - Anemia SNOMED: 022570530 (4) Clostridium difficile diarrhea ICD Codes: A04.72 - Enterocolitis due to Clostridium difficile, not specified as recurrent SNOMED: 9249345224921 (5) Amyloidosis ICD Codes: E85.9 - Amyloidosis, unspecified SNOMED: 42828901 Status: doing well, stable, progressing Status Narrative Discussed with Dr. Flores. Assessment/Plan s/p EGD/colonoscopy 2015 >> amyloidosis stool culture normal folate/B12 WNL Vit D deficiency abdominal U/S unremarkable PICC in place abx monitor H&H, prn transfusions low residual/fiber diet / lactose free diet >> push PO dc IVFs today electrolyte correction lomotil prn H2B Vit D daily PT eval fu labs Subjective Subjective diarrhea resolved, BM x 1 ready to be discharged Objective Last 24 Hour Vital Signs Date Time Temp Pulse Resp B/P (MAP) Pulse Ox O2 Delivery O2 Flow Rate FiO2 05/02/17 09:18 84 118/61 05/02/17 09:17 84 118/61 05/02/17 08:00 97.9 82 18 145/76 99 05/02/17 04:22 97.9 81 18 118/64 100 Room Air 05/02/17 00:49 97.7 84 19 119/56 99 Room Air 05/01/17 20:15 97.7 74 20 112/57 100 Room Air 05/01/17 20:00 Room Air 05/01/17 20:00 Room Air 05/01/17 16:00 98.5 19 125/52 100 Room Air 05/01/17 12:00 98.0 17 129/60 100 Room Air Laboratory Tests Test 05/02/17 05:12 05/02/17 05:15 White Blood Count 5.2 K/UL (4.8-10.8) Red Blood Count 3.10 M/UL (4.70-6.10) L Hemoglobin 10.1 G/DL (14.2-18.0) L Hematocrit 30.8 % (42.0-52.0) L Mean Corpuscular Volume 99 FL (80-99) Mean Corpuscular Hemoglobin 32.7 PG (27.0-31.0) H Mean Corpuscular Hemoglobin Concent 32.9 G/DL (32.0-36.0) Red Cell Distribution Width 14.3 % (11.6-14.8) Platelet Count 150 K/UL (150-450) Mean Platelet Volume 6.1 FL (6.5-10.1) L Neutrophils (%) (Auto) 61.0 % (45.0-75.0) Lymphocytes (%) (Auto) 20.3 % (20.0-45.0) Monocytes (%) (Auto) 13.5 % (1.0-10.0) H Eosinophils (%) (Auto) 3.9 % (0.0-3.0) H Basophils (%) (Auto) 1.3 % (0.0-2.0) Sodium Level 142 MMOL/L (136-145) Potassium Level 3.6 MMOL/L (3.5-5.1) Chloride Level 109 MMOL/L (98-107) H Carbon Dioxide Level 24 MMOL/L (21-32) Anion Gap 9 mmol/L (5-15) Blood Urea Nitrogen 4 mg/dL (7-18) L Creatinine 1.2 MG/DL (0.55-1.30) Estimat Glomerular Filtration Rate mL/min (>60) Glucose Level 96 MG/DL (74-106) Calcium Level 8.6 MG/DL (8.5-10.1) Height (Feet): 6 Height (Inches): 1.00 Weight (Pounds): 197 General Appearance: WD/WN, no apparent distress, alert Cardiovascular: normal rate Respiratory/Chest: normal breath sounds, no respiratory distress Abdominal Exam: normal bowel sounds, non tender, soft Extremities: non-tender Domenica Chanel N.P. May 02, 2017 10:37
--- NOTE | 2017-05-02 11:11 | Internal Med Progress Note ---
Subjective Date of Service: May 02, 2017 Physician Name Elly Elias Attending Physician Jovani Villagomez MD Current Medications Medications (Trade) Dose Ordered Sig/Antionette Route PRN Reason Start Time Stop Time Status Last Admin Dose Admin Acetaminophen (Tylenol) 650 mg Q4H PRN ORAL Mild Pain/Temp > 100.5 04/30/17 16:30 05/30/17 16:29 05/01/17 15:57 Amlodipine Besylate (Norvasc) 5 mg DAILY ORAL 04/24/17 09:00 05/13/17 08:59 05/02/17 09:17 Chlorhexidine Gluconate (Lisette-Hex 2%) 1 applic DAILY@2000 TOPIC 04/23/17 20:00 05/15/17 19:59 05/01/17 21:23 Dextrose (Dextrose 50%) STAT PRN IV Hypoglycemia 04/23/17 16:30 05/23/17 16:29 Diphenoxylate HCl/ Atropine (Lomotil) 2.5 mg Q4H PRN ORAL Diarrhea 04/23/17 16:15 05/12/17 16:14 05/01/17 09:10 Finasteride (Proscar) 5 mg DAILY ORAL 04/24/17 09:00 05/13/17 08:59 05/02/17 09:16 Heparin Sodium (Porcine) (Heparin 5000 units/ml) 5,000 units EVERY 12 HOURS SUBQ 04/23/17 21:00 05/12/17 20:59 05/01/17 21:25 Metoprolol Tartrate (Lopressor) 25 mg Q12HR ORAL 04/23/17 21:00 05/12/17 20:59 05/02/17 09:18 Metronidazole 100 ml @ 100 mls/hr Q8HR IV 04/29/17 22:00 05/05/17 21:00 05/02/17 05:13 Nitroglycerin (Ntg) 0.4 mg Q5M X 3 DOSES PRN SL Prn Chest Pain 04/23/17 16:15 05/12/17 15:44 Non-Formulary Medication (Non-Formulary Med) 1 ea DAILY ORAL 04/28/17 11:30 05/28/17 11:29 UNV Nystatin (Nystop Powder) 1 applic BID TOPIC 04/23/17 18:00 05/20/17 20:59 05/02/17 10:35 Ondansetron HCl (Zofran) 4 mg Q6H PRN IVP Nausea & Vomiting 04/23/17 16:30 05/12/17 16:29 Tamsulosin HCl (Flomax) 0.4 mg BID ORAL 04/23/17 18:00 05/12/17 17:59 05/02/17 09:16 Vancomycin HCl (Vancomycin) 250 mg FOUR TIMES A DAY ORAL 04/23/17 18:00 05/04/17 17:59 05/02/17 09:19 Allergies: Coded Allergies: No Known Allergies (Unverified , 04/23/13) ROS Limited/Unobtainable: No Constitutional: Reports: no symptoms HEENT: Reports: no symptoms Cardiovascular: Reports: no symptoms Respiratory: Reports: no symptoms Gastrointestinal/Abdominal: Reports: no symptoms Genitourinary: Reports: no symptoms Neurologic/Psychiatric: Reports: no symptoms Subjective 76 YO M admitted with left lower quadrant pain. Now UTI. Cover for Int Med-Dr Villagomez.. Confusion resolved. Objective Last Vital Signs Date Time Temp Pulse Resp B/P (MAP) Pulse Ox O2 Delivery O2 Flow Rate FiO2 05/02/17 09:18 84 118/61 05/02/17 08:00 97.9 18 99 05/02/17 04:22 Room Air Laboratory Tests Test 05/02/17 05:12 05/02/17 05:15 White Blood Count 5.2 K/UL (4.8-10.8) Red Blood Count 3.10 M/UL (4.70-6.10) L Hemoglobin 10.1 G/DL (14.2-18.0) L Hematocrit 30.8 % (42.0-52.0) L Mean Corpuscular Volume 99 FL (80-99) Mean Corpuscular Hemoglobin 32.7 PG (27.0-31.0) H Mean Corpuscular Hemoglobin Concent 32.9 G/DL (32.0-36.0) Red Cell Distribution Width 14.3 % (11.6-14.8) Platelet Count 150 K/UL (150-450) Mean Platelet Volume 6.1 FL (6.5-10.1) L Neutrophils (%) (Auto) 61.0 % (45.0-75.0) Lymphocytes (%) (Auto) 20.3 % (20.0-45.0) Monocytes (%) (Auto) 13.5 % (1.0-10.0) H Eosinophils (%) (Auto) 3.9 % (0.0-3.0) H Basophils (%) (Auto) 1.3 % (0.0-2.0) Sodium Level 142 MMOL/L (136-145) Potassium Level 3.6 MMOL/L (3.5-5.1) Chloride Level 109 MMOL/L (98-107) H Carbon Dioxide Level 24 MMOL/L (21-32) Anion Gap 9 mmol/L (5-15) Blood Urea Nitrogen 4 mg/dL (7-18) L Creatinine 1.2 MG/DL (0.55-1.30) Estimat Glomerular Filtration Rate mL/min (>60) Glucose Level 96 MG/DL (74-106) Calcium Level 8.6 MG/DL (8.5-10.1) Objective General Appearance: WD/WN, no apparent distress, alert EENT: PERRL/EOMI, normal ENT inspection, TMs normal Neck: non-tender, normal alignment, supple, normal inspection Cardiovascular: normal peripheral pulses, normal rate, regular rhythm, no gallop/murmur, no JVD Respiratory/Chest: chest wall non-tender, lungs clear, normal breath sounds, no respiratory distress, no accessory muscle use Abdomen: normal bowel sounds, soft, no organomegaly, guarding, rebound, tender Extremities: normal range of motion, non-tender 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 Coli-Multi drug resistant. See ID note. Continue ertapenem (3) Clostridium difficile colitis Assessment & Plan: Continue vanco and flagyl. See GI note (4) Amyloidosis Assessment & Plan: GI-see gastroenterology note (5) Multiple myeloma (6) HTN (hypertension) Assessment & Plan: Cont norvasc and lopressor (7) Anemia (8) CAD (coronary artery disease) (9) BPH (benign prostatic hyperplasia) (10) Confused Assessment & Plan: Resolved; due to toxic metabolic encephalopathy. See Neuro consult note. Status: progressing Assessment/Plan Discharge planning: home with home health. Discussed with patient and girlfriend. ELLY ELIAS May 02, 2017 11:11
[2017-05-02 12:02] VITALS: BP 122/67
--- NOTE | 2017-05-02 13:31 | Infectious Diseases Prog Note ---
Assessment/Plan Assessment/Plan ASSESSMENT: The patient is a 76-year-old male with: Extended spectrum beta-lactamases E. coli urinary tract UTI ; s/p RX Diarrhea due to recurrent C Diff ; no BM today History of recurrent Clostridium difficile.( recent +ve 03/29/17) Acute metabolic enchephalopathy, improving Leukopenia; resolved Afebrile. History of multiple myeloma on chemo. History of GI trach amyloidosis. History of appendicitis. History of intraabdominal abscess in 2014. Hypertension. Prostate cancer. TURP. CAD. CABG PLAN: Cont pt on oral vancomycin (extended 7 more days post abx and in view of ongoing diarrhea) and d/c IV Flagyl #18 -monitor diarrhea- if recurrent/worsening will need fidaxomicin -04/27 SP Ertapenem #14 Monitor CBC Monitor BMP Subjective Allergies: Coded Allergies: No Known Allergies (Unverified , 04/23/13) Subjective afebrile no leukocytosis no diarrhea today Objective Vital Signs Last 24 Hour Vital Signs Date Time Temp Pulse Resp B/P (MAP) Pulse Ox O2 Delivery O2 Flow Rate FiO2 05/02/17 12:02 97.3 69 18 122/67 100 05/02/17 09:18 84 118/61 05/02/17 09:17 84 118/61 05/02/17 08:00 97.9 82 18 145/76 99 05/02/17 04:22 97.9 81 18 118/64 100 Room Air 05/02/17 00:49 97.7 84 19 119/56 99 Room Air 05/01/17 20:15 97.7 74 20 112/57 100 Room Air 05/01/17 20:00 Room Air 05/01/17 20:00 Room Air 05/01/17 16:00 98.5 19 125/52 100 Room Air Height (Feet): 6 Height (Inches): 1.00 Weight (Pounds): 197 Objective General Appearance: WD/WN, no apparent distress;more awake today, slurred speech HEENT: normocephalic, anicteric Neck: non-tender, normal alignment Respiratory/Chest: chest wall non-tender, lungs clear Cardiovascular/Chest: normal rate, regular rhythm Abdomen: non tender, soft Genitourinary/Rectal: normal genital exam, normal rectal exam Extremities: normal range of motion, non-pitting Laboratory Tests Test 05/02/17 05:12 05/02/17 05:15 White Blood Count 5.2 K/UL (4.8-10.8) Red Blood Count 3.10 M/UL (4.70-6.10) L Hemoglobin 10.1 G/DL (14.2-18.0) L Hematocrit 30.8 % (42.0-52.0) L Mean Corpuscular Volume 99 FL (80-99) Mean Corpuscular Hemoglobin 32.7 PG (27.0-31.0) H Mean Corpuscular Hemoglobin Concent 32.9 G/DL (32.0-36.0) Red Cell Distribution Width 14.3 % (11.6-14.8) Platelet Count 150 K/UL (150-450) Mean Platelet Volume 6.1 FL (6.5-10.1) L Neutrophils (%) (Auto) 61.0 % (45.0-75.0) Lymphocytes (%) (Auto) 20.3 % (20.0-45.0) Monocytes (%) (Auto) 13.5 % (1.0-10.0) H Eosinophils (%) (Auto) 3.9 % (0.0-3.0) H Basophils (%) (Auto) 1.3 % (0.0-2.0) Sodium Level 142 MMOL/L (136-145) Potassium Level 3.6 MMOL/L (3.5-5.1) Chloride Level 109 MMOL/L (98-107) H Carbon Dioxide Level 24 MMOL/L (21-32) Anion Gap 9 mmol/L (5-15) Blood Urea Nitrogen 4 mg/dL (7-18) L Creatinine 1.2 MG/DL (0.55-1.30) Estimat Glomerular Filtration Rate mL/min (>60) Glucose Level 96 MG/DL (74-106) Calcium Level 8.6 MG/DL (8.5-10.1) Current Medications Medications (Trade) Dose Ordered Sig/Antionette Route PRN Reason Start Time Stop Time Status Last Admin Dose Admin Acetaminophen (Tylenol) 650 mg Q4H PRN ORAL Mild Pain/Temp > 100.5 04/30/17 16:30 05/30/17 16:29 05/01/17 15:57 Amlodipine Besylate (Norvasc) 5 mg DAILY ORAL 04/24/17 09:00 05/13/17 08:59 05/02/17 09:17 Chlorhexidine Gluconate (Lisette-Hex 2%) 1 applic DAILY@2000 TOPIC 04/23/17 20:00 05/15/17 19:59 05/01/17 21:23 Dextrose (Dextrose 50%) STAT PRN IV Hypoglycemia 04/23/17 16:30 05/23/17 16:29 Diphenoxylate HCl/ Atropine (Lomotil) 2.5 mg Q4H PRN ORAL Diarrhea 04/23/17 16:15 05/12/17 16:14 05/01/17 09:10 Finasteride (Proscar) 5 mg DAILY ORAL 04/24/17 09:00 05/13/17 08:59 05/02/17 09:16 Heparin Sodium (Porcine) (Heparin 5000 units/ml) 5,000 units EVERY 12 HOURS SUBQ 04/23/17 21:00 05/12/17 20:59 05/01/17 21:25 Metoprolol Tartrate (Lopressor) 25 mg Q12HR ORAL 04/23/17 21:00 05/12/17 20:59 05/02/17 09:18 Metronidazole 100 ml @ 100 mls/hr Q8HR IV 04/29/17 22:00 05/05/17 21:00 05/02/17 05:13 Nitroglycerin (Ntg) 0.4 mg Q5M X 3 DOSES PRN SL Prn Chest Pain 04/23/17 16:15 05/12/17 15:44 Non-Formulary Medication (Non-Formulary Med) 1 ea DAILY ORAL 04/28/17 11:30 05/28/17 11:29 UNV Nystatin (Nystop Powder) 1 applic BID TOPIC 04/23/17 18:00 05/20/17 20:59 05/02/17 10:35 Ondansetron HCl (Zofran) 4 mg Q6H PRN IVP Nausea & Vomiting 04/23/17 16:30 05/12/17 16:29 Tamsulosin HCl (Flomax) 0.4 mg BID ORAL 04/23/17 18:00 05/12/17 17:59 05/02/17 09:16 Vancomycin HCl (Vancomycin) 250 mg FOUR TIMES A DAY ORAL 04/23/17 18:00 05/04/17 17:59 05/02/17 09:19 Yaima Nguyễn M.D. May 02, 2017 13:31
--- NOTE | 2017-05-02 13:37 | Pulmonology Progress Note ---
Assessment/Plan Problems: (1) Acute encephalopathy (2) C. difficile colitis (3) Sepsis (4) Multiple myeloma (5) intermittent generalised tremors without LOC (6) r/o paraneoplastic syndrom (7) Acute on chronic renal failure (8) UTI (urinary tract infection) Assessment/Plan much better no new complains improving dc unessential meds K supplement Neuro note appreciated all meds and note reviewed. dc planning in progress Subjective ROS Limited/Unobtainable: No Interval Events: much more alert Allergies: Coded Allergies: No Known Allergies (Unverified , 04/23/13) Objective Last 24 Hour Vital Signs Date Time Temp Pulse Resp B/P (MAP) Pulse Ox O2 Delivery O2 Flow Rate FiO2 05/02/17 12:02 97.3 69 18 122/67 100 05/02/17 09:18 84 118/61 05/02/17 09:17 84 118/61 05/02/17 08:00 97.9 82 18 145/76 99 05/02/17 04:22 97.9 81 18 118/64 100 Room Air 05/02/17 00:49 97.7 84 19 119/56 99 Room Air 05/01/17 20:15 97.7 74 20 112/57 100 Room Air 05/01/17 20:00 Room Air 05/01/17 20:00 Room Air 05/01/17 16:00 98.5 19 125/52 100 Room Air Objective General Appearance: WD/WN, no apparent distress Lines, tubes and drains: peripheral, HEENT: normocephalic, anicteric Neck: non-tender, normal alignment Respiratory/Chest: chest wall non-tender, lungs clear Cardiovascular/Chest: normal rate, regular rhythm Abdomen: non tender, soft Genitourinary/Rectal: normal genital exam, normal rectal exam Extremities: normal range of motion, non-pitting Laboratory Tests 05/02/17 05:12: White Blood Count 5.2, Red Blood Count 3.10L, Hemoglobin 10.1L, Hematocrit 30.8L , Mean Corpuscular Volume 99, Mean Corpuscular Hemoglobin 32.7H, Mean Corpuscular Hemoglobin Concent 32.9, Red Cell Distribution Width 14.3, Platelet Count 150, Mean Platelet Volume 6.1L, Neutrophils (%) (Auto) 61.0, Lymphocytes ( %) (Auto) 20.3, Monocytes (%) (Auto) 13.5H, Eosinophils (%) (Auto) 3.9H, Basophils (%) (Auto) 1.3 05/02/17 05:15: Sodium Level 142, Potassium Level 3.6, Chloride Level 109H, Carbon Dioxide Level 24, Anion Gap 9, Blood Urea Nitrogen 4L, Creatinine 1.2, Estimat Glomerular Filtration Rate , Glucose Level 96, Calcium Level 8.6 Current Medications Medications (Trade) Dose Ordered Sig/Antionette Route PRN Reason Start Time Stop Time Status Last Admin Dose Admin Acetaminophen (Tylenol) 650 mg Q4H PRN ORAL Mild Pain/Temp > 100.5 04/30/17 16:30 05/30/17 16:29 05/01/17 15:57 Amlodipine Besylate (Norvasc) 5 mg DAILY ORAL 04/24/17 09:00 05/13/17 08:59 05/02/17 09:17 Chlorhexidine Gluconate (Lisette-Hex 2%) 1 applic DAILY@2000 TOPIC 04/23/17 20:00 05/15/17 19:59 05/01/17 21:23 Dextrose (Dextrose 50%) STAT PRN IV Hypoglycemia 04/23/17 16:30 05/23/17 16:29 Diphenoxylate HCl/ Atropine (Lomotil) 2.5 mg Q4H PRN ORAL Diarrhea 04/23/17 16:15 05/12/17 16:14 05/01/17 09:10 Finasteride (Proscar) 5 mg DAILY ORAL 04/24/17 09:00 05/13/17 08:59 05/02/17 09:16 Heparin Sodium (Porcine) (Heparin 5000 units/ml) 5,000 units EVERY 12 HOURS SUBQ 04/23/17 21:00 05/12/17 20:59 05/01/17 21:25 Metoprolol Tartrate (Lopressor) 25 mg Q12HR ORAL 04/23/17 21:00 05/12/17 20:59 05/02/17 09:18 Metronidazole 100 ml @ 100 mls/hr Q8HR IV 04/29/17 22:00 05/05/17 21:00 05/02/17 05:13 Nitroglycerin (Ntg) 0.4 mg Q5M X 3 DOSES PRN SL Prn Chest Pain 04/23/17 16:15 05/12/17 15:44 Non-Formulary Medication (Non-Formulary Med) 1 ea DAILY ORAL 04/28/17 11:30 05/28/17 11:29 UNV Nystatin (Nystop Powder) 1 applic BID TOPIC 04/23/17 18:00 05/20/17 20:59 05/02/17 10:35 Ondansetron HCl (Zofran) 4 mg Q6H PRN IVP Nausea & Vomiting 04/23/17 16:30 05/12/17 16:29 Tamsulosin HCl (Flomax) 0.4 mg BID ORAL 04/23/17 18:00 05/12/17 17:59 05/02/17 09:16 Vancomycin HCl (Vancomycin) 250 mg FOUR TIMES A DAY ORAL 04/23/17 18:00 05/04/17 17:59 05/02/17 09:19 GOLDEN LIM May 02, 2017 13:37
[2017-05-02 16:00] VITALS: BP 128/89
--- NOTE | 2017-05-02 23:33 | General Progress Note ---
Assessment/Plan Assessment/Plan the pt is still delirious the pt is more alert however still has waxing and waning consciousness -cont current meds Subjective Date patient seen: May 02, 2017 Allergies: Coded Allergies: No Known Allergies (Unverified , 04/23/13) Subjective the pt was more alert and lucid today the pt became more agitated after the sitter was dc yesterday Objective Last 24 Hour Vital Signs Date Time Temp Pulse Resp B/P (MAP) Pulse Ox O2 Delivery O2 Flow Rate FiO2 05/02/17 16:00 98.2 78 18 128/89 100 05/02/17 12:02 97.3 69 18 122/67 100 05/02/17 09:18 84 118/61 05/02/17 09:17 84 118/61 05/02/17 08:00 97.9 82 18 145/76 99 05/02/17 04:22 97.9 81 18 118/64 100 Room Air 05/02/17 00:49 97.7 84 19 119/56 99 Room Air Intake and Output 05/02/17 05/03/17 19:00 07:00 Intake Total 360 ml Balance 360 ml Intake Oral 360 ml # Voids 4 Laboratory Tests 05/02/17 05:12: White Blood Count 5.2, Red Blood Count 3.10L, Hemoglobin 10.1L, Hematocrit 30.8L , Mean Corpuscular Volume 99, Mean Corpuscular Hemoglobin 32.7H, Mean Corpuscular Hemoglobin Concent 32.9, Red Cell Distribution Width 14.3, Platelet Count 150, Mean Platelet Volume 6.1L, Neutrophils (%) (Auto) 61.0, Lymphocytes ( %) (Auto) 20.3, Monocytes (%) (Auto) 13.5H, Eosinophils (%) (Auto) 3.9H, Basophils (%) (Auto) 1.3 05/02/17 05:15: Sodium Level 142, Potassium Level 3.6, Chloride Level 109H, Carbon Dioxide Level 24, Anion Gap 9, Blood Urea Nitrogen 4L, Creatinine 1.2, Estimat Glomerular Filtration Rate , Glucose Level 96, Calcium Level 8.6 Height (Feet): 6 Height (Inches): 1.00 Weight (Pounds): 197 Arelis Leonard M.D. May 02, 2017 23:33
--- NOTE | 2017-05-04 10:08 | Discharge Summary ---
Discharge Summary Hospital Course Date of Admission Apr 12, 2017 at 14:50 Date of Discharge May 02, 2017 at 21:25 Admitting Diagnosis pyelonephritis HPI Alex Echols is a 76 year old male who was admitted on Apr 12, 2017 at 14:50 for Pyelonephritis Hospital Course dc summary #[id number] Discharge Medications Continued Medications: Acetaminophen* (Acetaminophen 325MG Tablet*) 325 Mg Tablet 650 MG ORAL Q4H PRN, #30 TAB Acyclovir* (Acyclovir*) 400 Mg Tablet 400 MG ORAL BID, TAB Allopurinol* (Allopurinol*) 100 Mg Tablet 300 MG ORAL DAILY, #1 TAB Amlodipine Besylate (Norvasc) 5 Mg Tablet 5 MG ORAL DAILY, #1 TAB Aspirin Ec* (Aspirin Ec*) 81 Mg Tablet.dr 81 MG ORAL DAILY, #1 TAB Atorvastatin (Lipitor) 80 Mg Tablet 80 MG ORAL DAILY, TAB 0 Refills Atorvastatin Calcium* (Lipitor*) 20 Mg Tablet 20 MG ORAL BEDTIME, #1 TAB Clonidine HCl (Clonidine HCl) 0.1 Mg Tablet 0.1 MG ORAL Q8H PRN for sbp>170, #1 TAB Clonidine Hcl* (Catapres*) 0.1 Mg Tablet 0.1 MG ORAL EVERY 6 HOURS, TAB Diphenoxylate Hcl/Atropine (Lomotil Tablet) 1 Each Tablet 5 MG ORAL TID, #1 TAB Ferrous Sulfate (Feosol) 325 Mg Tablet 325 MG ORAL DAILY, #1 TAB Finasteride (Finasteride) 5 Mg Tablet 5 MG ORAL DAILY, #1 TAB Hydrocodone Bit/Acetaminophen 10-325* (Hydrocodon-Acetaminophn 10-325*) 1 Each Tablet 1 EA ORAL Q6H PRN for Severe Pain (Pain Scale 7-10), #1 TAB Lansoprazole* (Lansoprazole*) 15 Mg Capsule.dr 15 MG ORAL DAILY, CAP Loperamide HCl (Loperamide) 2 Mg Capsule 2 MG ORAL Q8H PRN for Diarrhea, #1 CAP Magnesium Oxide (Magox 400) 400 Mg Tablet 400 MG ORAL TID, #30 TAB 0 Refills Metoprolol Tartrate (Metoprolol Tartrate) 25 Mg Tablet 25 MG ORAL Q12HR, #1 TAB Ondansetron* (Zofran*) 4 Mg Tablet 4 MG ORAL Q6H PRN for Nausea & Vomiting, TAB Pantoprazole* (Protonix*) 40 Mg Tablet.dr 40 MG ORAL DAILY, TAB Ranitidine Hcl* (Zantac*) 150 Mg Tablet 150 MG ORAL BEDTIME, #1 TAB Tamsulosin HCl (Flomax) 0.4 Mg Cap.er.24h 0.4 MG ORAL BID, #1 CAP Terazosin Hcl (Terazosin Hcl) 10 Mg Capsule 10 MG ORAL, CAP Thalidomide (Thalomid) 50 Mg Capsule 50 MG PO DAILY, CAP Valsartan (Diovan) 80 Mg Tab 80 MG ORAL DAILY, TAB Vancomycin Hcl (Vancomycin Hcl) 125 Mg Capsule 125 MG PO BID for 7 Days, #14 CAP Discharge Condition Upon Discharge: stable Discharge Disposition Patient was discharged to SNF Discharge Diagnoses: Justyn (Aileen Bianchi NP May 04, 2017 10:08
--- NOTE | 2017-05-05 00:45 | Discharge Summary 2 SIG ---
DATE OF ADMISSION: 04/12/2017 DATE OF DISCHARGE: 05/02/2017 REASON FOR ADMISSION: 76 years old male with history of multiple medical problems including hypertension, multiple myeloma, prostate cancer, coronary artery disease, status post coronary artery bypass graft, and gastrointestinal amyloidosis, was recently discharged from [facility] for Clostridium difficile colitis. He was prescribed antibiotic for treatment. He still reported some diarrhea, but stool became more firm. He presented mainly for the left lower quadrant abdominal pain. Workup in the emergency room revealed evidence of urinary tract infection. The patient was admitted for urinary tract infection, possible pyelonephritis, and Clostridium difficile colitis. HOSPITAL STAY: The patient was admitted. ID , GI , hospitalist consults were requested. The patient was started on empiric antibiotics. Urine culture revealed E. coli ESBL. Antibiotic regimen optimized as per ID management. PICC line was placed for intravenous access. The patient status post treatment for E. coli ESBL. Diarrhea gradually resolved. Continue oral vancomycin for additional seven days at the assisted facility and closely monitor for diarrhea. Per ID recommendation if diarrhea continues, the patient may need Fidaxomicin. The patient was also on intravenous Flagyl prior, which was discontinued prior to discharge. GI closely followed the patient. Abdominal ultrasound revealed no acute findings. Lomotil was provided as needed for diarrhea. Hemoglobin and hematocrit were closely monitored. Stool culture was negative. The patient was on low-residue, lactose-free diet. GI prophylaxis provided. Vitamin D was replaced. Electrolytes were monitored and replaced ( magnesium and potassium). The patient noted to have altered mental status. Neurology consult was requested. MRI of the brain revealed no acute intracranial pathology, but was consistent with old left cerebrovascular infarct. Sitter provided at the bedside for safety. The patient was off all mind-altering medication. The patient was also off Marinol (which was given for appetite stimulation), possibly contributing to anxiety and change in mental status. The patient was transferred to telemetry. Neuro checks were done every 4 hours, no change, no gross focal. Patient subsequently undergone EEG, which was mildly abnormal and showed mild diffuse slowing. Per neurologist, the patient also noted to have intermittent generalized tremors without loss of consciousness. Low dose of Klonopin was ordered for control of tremors. Mental status slowly improved Per neurologist, the patient had toxic metabolic encephalopathy, multifactorial. Psychiatrist evaluated the patient and optimized psychiatric medication regimen. Again, all unnecessary medication were on hold and all mind-altering medications were on hold, benzodiazepines were avoided. The patient was working with physical and occupational therapists. Blood pressure was managed with current regimen and was stable with calcium-channel jose f and beta-jose f. Aspirin and statin were continued. DVT prophylaxis provided. Flomax and Proscar were continued. The patient was seen by the instructor bus trolley and taxi . Ensure 1 can provided daily along with snacks. The patient was not stable to return to previous level of arrangement in assisted living. Patient needs further treatment and management. The patient was subsequently transferred to [facility] for further management. FINAL DIAGNOSES: 1. Urinary tract infection with Escherichia coli Extended spectrum beta-lactamase, status post treatment. 2. Clostridium difficile colitis with history of recurrent Clostridium difficile colitis. 3. Chemotherapy-induced diarrhea, improved. 4. Multiple myeloma, on chemotherapy. 5. Anemia of chronic disease. 6. Prostate cancer. 7. Toxic metabolic encephalopathy, multifactorial. 8. Hypertension. 9. History of cerebrovascular accident. 10. Vitamin D deficiency. 11. Electrolyte imbalance (hypokalemia, hypomagnesemia). 12. Gastrointestinal amyloidosis. 13. Intermittent generalized tremors without loss of consciousness. 14. Chronic pain syndrome. DISCHARGE MEDICATIONS: See medication reconciliation list. DISCHARGE INSTRUCTIONS: The patient was discharged to [facility] FOLLOWUP: Follow up with medical doctor at the facility. Jovani Villagomez M.D. [facility]en [facility] N.PViv DR: CHIKIS JOB#: [id number] CC: SELINA
== END 2017-05-02 21:25 | DRG 371 ==
LOC: EDBD 10:40 → EMR 11:05 → EDBEDREQ 14:30 → 4E 14:50 → EDBEDREQ 15:12 → 2E 04-23 16:05 → 4E 04-29 15:00
PROC: 02HV33Z Insertion of Infusion Device into Superior Vena Cava, Percutaneous Approach (ICD-10-PCS; principal; 2017-04-15)
PROC: B518ZZA Fluoroscopy of Superior Vena Cava, Guidance (ICD-10-PCS; principal; 2017-04-15)
DX: A04.71 Enterocolitis due to Clostridium difficile, recurrent (principal); G92 Toxic encephalopathy; N17.9 Acute kidney failure, unspecified; E46 Unspecified protein-calorie malnutrition; K52.1 Toxic gastroenteritis and colitis; C90.00 Multiple myeloma not having achieved remission; E85.4 Organ-limited amyloidosis; D64.9 Anemia, unspecified; N12 Tubulo-interstitial nephritis, not specified as acute or chronic; D70.1 Agranulocytosis secondary to cancer chemotherapy; E83.42 Hypomagnesemia; B96.20 Unspecified Escherichia coli [E. coli] as the cause of diseases classified elsewhere; I25.10 Atherosclerotic heart disease of native coronary artery without angina pectoris; Z95.1 Presence of aortocoronary bypass graft; E87.6 Hypokalemia; Z85.46 Personal history of malignant neoplasm of prostate; I12.9 Hypertensive chronic kidney disease with stage 1 through stage 4 chronic kidney disease, or unspecified chronic kidney disease; N18.9 Chronic kidney disease, unspecified; R47.1 Dysarthria and anarthria; Z68.26 Body mass index [BMI] 26.0-26.9, adult; E55.9 Vitamin D deficiency, unspecified; G89.4 Chronic pain syndrome; R25.1 Tremor, unspecified; T45.1X5A Adverse effect of antineoplastic and immunosuppressive drugs, initial encounter; Y92.9 Unspecified place or not applicable; Z23 Encounter for immunization
CPT/HCPCS: 36415; 36569; 70551; 76700; 76937; 80048; 80053; 81003; 82140; 82150; 82248; 82306; 83690; 83735; 84100; 85007; 85025; 85730; 87086; 87181; 90630; 95819; 99285; J8499

== ENCOUNTER 2017-12-01 15:29 | Inpatient (IN) | payer MEDICARE, OTHER ==
[~2017-12-01] VITALS: Ht 188 cm; Wt 78.0 kg
[~2017-12-01 15:29] MED LIST changes: +FLAGYL500 MG ORAL; +INVANZ1 G1 IM; +LIPITOR80 MG ORAL; +TERAZOSIN HCL10 MG ORAL
[2017-12-01 15:38] VITALS: BP 120/61
--- NOTE | 2017-12-01 15:51 | Emergency Room Report ---
History of Present Illness General Chief Complaint: General Complaint Source: Patient, EMS Present Illness HPI 77-year-old male p/w abdominal pain generalized weakness and nausea Patient states pain started gradually today, localized to mid lower abdomen, non radiating, sharp in nature, intermittent. No relieving or exacerbating factors. Severity is to 10. Complains of nausea no vomiting also had 2 loose watery episodes of diarrhea today Denies fever, chills. No hx of abdominal surgeries. No hx of endoscopies/colonoscopies. Allergies: Coded Allergies: No Known Allergies (Unverified , 04/23/13) Patient History Past Medical History: see triage record Past Surgical History: none Pertinent Family History: none Reviewed Nursing Documentation: PMH: Agreed; PSxH: Agreed Nursing Documentation-PMH Hx Cardiac Problems: Yes - [place], CABG Hx Hypertension: Yes Hx Pacemaker: No - C-DIFF,MYELOMA,CA Hx Asthma: No Hx COPD: No Hx Diabetes: No Hx Cancer: Yes - Leukemia Hx Gastrointestinal Problems: Yes Hx Dialysis: No Hx Neurological Problems: No Hx Cerebrovascular Accident: No Hx Seizures: No Hx Dizziness: No Hx Syncope: No Hx Headaches: No Review of Systems All Other Systems: negative except mentioned in HPI Physical Exam Vital Signs Date Time Temp Pulse Resp B/P (MAP) Pulse Ox O2 Delivery O2 Flow Rate FiO2 12/01/17 15:26 97.2 77 16 108/53 99 Room Air 97.2 Sp02 EP Interpretation: reviewed, normal General Appearance: alert, GCS 15, non-toxic, moderate distress Head: normocephalic, atraumatic Eyes: bilateral eye normal inspection, bilateral eye PERRL, bilateral eye EOMI ENT: normal ENT inspection, normal pharynx, normal voice, moist mucus membranes Neck: normal inspection, full range of motion, supple Respiratory: normal inspection, lungs clear, normal breath sounds, no respiratory distress, no retraction, no wheezing, speaking full sentences, chest symmetrical Cardiovascular #1: normal inspection, regular rate, rhythm, no edema, normal capillary refill Cardiovascular #2: 2+ radial (R), 2+ radial (L) Gastrointestinal: non-distended, other - mid abd tendenress no guarding no rebound Genitourinary: no CVA tenderness Musculoskeletal: normal inspection, back normal, normal range of motion, non- tender Neurologic: normal inspection, alert, oriented x3, responsive, motor strength/ tone normal, sensory intact, normal gait, speech normal Psychiatric: normal inspection, judgement/insight normal, memory normal Skin: normal inspection, normal color, no rash, warm/dry, well hydrated, normal turgor Medical Decision Making Diagnostic Impression: Primary Impression: Abdominal pain Additional Impressions: Generalized weakness Decreased oral intake ER Course 77-year-old male with abdominal pain Differential Diagnosis: Gastritis, gastroenteritis, cholecystitis, appendicitis, diverticulitis, SBO, mesenteric ischemia, cardiac, UTI/pyelo Plan: Basic labs, ua, ekg pain control, IVF CT abdopelvis ER course: Patient has remained HD stable during ED stay. given pain meds fluids pt still not able to tolerate po, feels weak, will admit Disposition: Patient will be admitted to med surg. Discussed with hospitalist Dr Villagomez Please note that this Emergency Department Report was dictated using [employer] hoist operator technology software, occasionally this can lead to erroneous entry secondary to interpretation by the dictation equipment EKG Diagnostic Results EP Interpretation: Yes Rate: normal Rhythm: NSR ST Segments: Slight T-wave inversion in aVL only, PVCs ASA given to patient: No Rhythm Strip EP Interpretation: Yes Rate: 68 Rhythm: NSR, no PVCs, no ectopy Laboratory Tests Test 12/01/17 16:00 12/01/17 17:45 12/01/17 18:55 White Blood Count 7.6 K/UL (4.8-10.8) Red Blood Count 3.10 M/UL (4.70-6.10) L Hemoglobin 10.4 G/DL (14.2-18.0) L Hematocrit 31.0 % (42.0-52.0) L Mean Corpuscular Volume 100 FL (80-99) H Mean Corpuscular Hemoglobin 33.6 PG (27.0-31.0) H Mean Corpuscular Hemoglobin Concent 33.6 G/DL (32.0-36.0) Red Cell Distribution Width 14.7 % (11.6-14.8) Platelet Count 107 K/UL (150-450) L Mean Platelet Volume 7.1 FL (6.5-10.1) Neutrophils (%) (Auto) 77.0 % (45.0-75.0) H Lymphocytes (%) (Auto) 8.2 % (20.0-45.0) L Monocytes (%) (Auto) 10.7 % (1.0-10.0) H Eosinophils (%) (Auto) 1.8 % (0.0-3.0) Basophils (%) (Auto) 2.2 % (0.0-2.0) H Sodium Level 140 MMOL/L (136-145) Potassium Level 3.4 MMOL/L (3.5-5.1) L Chloride Level 105 MMOL/L (98-107) Carbon Dioxide Level 26 MMOL/L (21-32) Anion Gap 9 mmol/L (5-15) Blood Urea Nitrogen 7 mg/dL (7-18) Creatinine 1.1 MG/DL (0.55-1.30) Estimate Glomerular Filtration Rate mL/min (>60) Glucose Level 140 MG/DL (74-106) H Calcium Level 8.5 MG/DL (8.5-10.1) Total Bilirubin 2.8 MG/DL (0.2-1.0) H Direct Bilirubin 0.4 MG/DL (0.0-0.3) H Aspartate Amino Transferase (AST) 41 U/L (15-37) H Alanine Aminotransferase (ALT) 62 U/L (12-78) Alkaline Phosphatase 101 U/L (46-116) Troponin I 0.006 ng/mL (0.000-0.056) Pro-B-Type Natriuretic Peptide 460 pg/mL (0-125) H Total Protein 6.1 G/DL (6.4-8.2) L Albumin 3.3 G/DL (3.4-5.0) L Globulin 2.8 g/dL Albumin/Globulin Ratio 1.2 (1.0-2.7) Lactic Acid Level 1.60 mmol/L (0.4-2.0) Urine Color Pale yellow Urine Appearance Clear Urine pH 5 (4.5-8.0) Urine Specific [place] 1.005 (1.005-1.035) Urine Protein Negative (NEGATIVE) Urine Glucose (UA) Negative (NEGATIVE) Urine Ketones Negative (NEGATIVE) Urine Occult Blood Negative (NEGATIVE) Urine Nitrite Negative (NEGATIVE) Urine Bilirubin Negative (NEGATIVE) Urine Urobilinogen Normal MG/DL (0.0-1.0) Urine Leukocyte Esterase Negative (NEGATIVE) CT/MRI/US Diagnostic Results CT/MRI/US Diagnostic Results : Imaging Test Ordered: CT ABDO PELVIS Impression CT ABDOMEN & PELVIS With Contrast: Thickening/infiltrating lesion involving the bladder base and prostate. Trace right pleural fluid Calcified granuloma right lung base. Possibly very mild the gallbladder wall thickening. No radiodense gallstones. Small hiatal hernia. Did - distal stomach is under distended and not well assessed. Could not exclude pathologic thickening. Probable surgical clips or other related to the stomach Colon is under distended and not well assessed. Correlate without any GI symptoms. Appendix not identified. Nonobstructive bowel gas pattern. Presacral edema. IVC filter. Last Vital Signs Date Time Temp Pulse Resp B/P (MAP) Pulse Ox O2 Delivery O2 Flow Rate FiO2 12/01/17 15:38 82 22 120/61 100 Room Air 12/01/17 15:26 97.2 97.2 Disposition: ADMITTED INPATIENT Condition: Serious Serenity Wilson M.D. Dec 01, 2017 15:51
--- NOTE | 2017-12-01 16:24 | Diagnostic Imaging Report ---
Indication: Chest pain Comparison: 03/28/2017 A single view chest radiograph was obtained. Findings: Cardiomediastinal appearance is within normal limits for age. Sternotomy noted. Pulmonary vascularity is appropriate. The diaphragmatic contour is smooth and costophrenic angles are sharp. No pleural effusions are identified. The bones are unremarkable. Impression: No acute findings
[2017-12-01] MEDS ORDERED: Isovue-300 100ml vial INJ PRN (16:30)
[2017-12-01 16:31] LABS: BASOPHILS % (AUTO) 2.2 % (0.0-2.0); EOSINOPHILS % (AUTO) 1.8 % (0.0-3.0); HEMOGLOBIN 10.4 G/DL (14.2-18.0); LYMPHOCYTES % (AUTO) 8.2 % (20.0-45.0); MEAN CORPUSCULAR VOLUME 100 FL (80-99); MONOCYTES % (AUTO) 10.7 % (1.0-10.0); PLATELET COUNT 107 K/UL (150-450); RED CELL DISTRIBUTION WIDTH 14.7 % (11.6-14.8); WHITE BLOOD COUNT 7.6 K/UL (4.8-10.8)
[2017-12-01 16:39] LABS: ANION GAP 9 mmol/L (5-15); BLOOD UREA NITROGEN 7 mg/dL (7-18); CALCIUM 8.5 MG/DL (8.5-10.1); CARBON DIOXIDE 26 MMOL/L (21-32); CHLORIDE 105 MMOL/L (98-107); CREATININE 1.1 MG/DL (0.55-1.30); POTASSIUM 3.4 MMOL/L (3.5-5.1); SODIUM 140 MMOL/L (136-145)
[2017-12-01 16:50] LABS: ALANINE AMINOTRANSFERASE 62 U/L (12-78); ALBUMIN 3.3 G/DL (3.4-5.0); ALBUMIN/GLOBULIN RATIO 1.2 (1.0-2.7); ALKALINE PHOSPHATASE 101 U/L (46-116); ASPARTATE AMINO TRANSFERASE 41 U/L (15-37); BILIRUBIN,TOTAL 2.8 MG/DL (0.2-1.0)
[2017-12-01 16:51] LABS: BILIRUBIN,DIRECT 0.4 MG/DL (0.0-0.3)
[2017-12-01 18:41] VITALS: BP 126/90
[2017-12-01 19:08] LABS: APPEARANCE,URINE CLEAR; BILIRUBIN, URINE NEGATIVE (NEGATIVE); COLOR,URINE PALE YELLOW; GLUCOSE, URINE (UA) NEGATIVE (NEGATIVE); KETONES,URINE NEGATIVE (NEGATIVE); LEUKOCYTE ESTERASE ,URINE NEGATIVE (NEGATIVE); NITRITE,URINE NEGATIVE (NEGATIVE); PH,URINE 5 (4.5-8.0); PROTEIN,URINE NEGATIVE (NEGATIVE); UROBILINOGEN,URINE NORMAL MG/DL (0.0-1.0)
[2017-12-01 21:55] VITALS: BP 139/68
[2017-12-01 22:11] VITALS: BP 137/79
[2017-12-01] MEDS ORDERED: Promethazine HCl 25 MG in NS 55 ML IV PRN (23:00)
[2017-12-01] MEDS ORDERED: Promethazine HCl 12.5 MG in NS 55 ML IV PRN (23:00)
[2017-12-01] MEDS ORDERED: Mylanta II UD 30ml ORAL PRN (23:00)
[2017-12-01] MEDS ORDERED: Metoclopramide 10mg/2ml Inj IVP PRN (23:00)
[2017-12-01] MEDS ORDERED: LORazepam Inj 2mg/ml 1ml IV PRN (23:00)
[2017-12-01] MEDS ORDERED: Miralax 17gm pkt ORAL PRN (23:00)
[2017-12-01] MEDS ORDERED: Nitroglycerin Subl 0.4mg tab SL PRN (23:00)
[2017-12-02 04:00] VITALS: BP 128/64
[2017-12-02 05:49] VITALS: BP 128/64
[2017-12-02] MEDS: D5 1/2NS 1,000 ML IV SCH ×2 (05:55→12:38)
[2017-12-02 07:32] LABS: BASOPHILS % (AUTO) 0.7 % (0.0-2.0); EOSINOPHILS % (AUTO) 3.2 % (0.0-3.0); HEMATOCRIT 29.6 % (42.0-52.0); LYMPHOCYTES % (AUTO) 15.7 % (20.0-45.0); MEAN CORPUSCULAR VOLUME 97 FL (80-99); MONOCYTES % (AUTO) 11.9 % (1.0-10.0); NEUTROPHILS % (AUTO) 68.5 % (45.0-75.0); PLATELET COUNT 121 K/UL (150-450); RED BLOOD COUNT 3.04 M/UL (4.70-6.10); WHITE BLOOD COUNT 5.2 K/UL (4.8-10.8)
[2017-12-02 08:00] VITALS: BP 148/70
[2017-12-02] MEDS: Pantoprazole Inj IV SCH (08:15)
[2017-12-02 08:20] LABS: ALANINE AMINOTRANSFERASE 51 U/L (12-78); ALBUMIN 2.9 G/DL (3.4-5.0); ALBUMIN/GLOBULIN RATIO 1.2 (1.0-2.7); ALKALINE PHOSPHATASE 87 U/L (46-116); AMYLASE 101 U/L (25-115); ANION GAP 7 mmol/L (5-15); ASPARTATE AMINO TRANSFERASE 31 U/L (15-37); BILIRUBIN,TOTAL 2.9 MG/DL (0.2-1.0); BLOOD UREA NITROGEN 6 mg/dL (7-18); CALCIUM 8.4 MG/DL (8.5-10.1); CARBON DIOXIDE 28 MMOL/L (21-32); CHLORIDE 107 MMOL/L (98-107); POTASSIUM 3.8 MMOL/L (3.5-5.1); SODIUM 141 MMOL/L (136-145)
[2017-12-02] MEDS: Heparin 5000 units/ml inj SUBQ SCH ×2 (08:21→21:00)
[2017-12-02 08:39] LABS: BILIRUBIN,DIRECT 0.3 MG/DL (0.0-0.3)
--- NOTE | 2017-12-02 09:24 | Diagnostic Imaging Report ---
Clinical Indication: Lower abdominal pain, nausea, weakness times one Technique: No oral contrast utilized, per emergency room physician request IV administration nonionic contrast. Venous phase spiral acquisition obtained through the abdomen and pelvis. Multiplanar reconstructions were generated. Total dose length product 754.47 mGycm. CTDIvol(s) 15.03 mGy. Dose reduction achieved using automated exposure control Comparison: 03/28/2017 Findings: There is equivocal mild wall thickening of the distal ascending, transverse, descending colon, probably an artifact of under distention but there is a slight degree of pericolonic infiltration surrounding the descending colon. There is equivocal slight congestion of the mesentery. The appendix is surgically absent. No small bowel distention. No free or loculated intraperitoneal air or fluid is evident. Again demonstrated is a small hiatal hernia. There is equivocal slight thickening of the gastric antrum, probably an artifact of under distention. Surgical clips are again seen within the stomach. There is mild edema of the presacral fat The gallbladder wall is equivocally mildly thickened, but no gallstones are evident and prior sonograms demonstrate no evidence of cholelithiasis The liver, bile ducts, pancreas, spleen, adrenals, kidneys are all unremarkable. No retroperitoneal or mesenteric mass or adenopathy. Inferior vena cava filter is again demonstrated. Bladder is minimally thick walled. The prostate is enlarged, demonstrates a TURP defect, indents the bladder floor, appearing similar to previous and multiple prior studies. The included lung bases demonstrate a small pleural effusion on the right. There is posterior dependent atelectasis. There is a calcified granuloma at the right lung base. Normal heart size. The bones demonstrate degenerative proliferative changes of the lumbar spine. Impression: Equivocal wall thickening of the colon, probably an artifact of under distention but colitis cannot completely excludable. Correlate with clinical findings Equivocal wall thickening of the gastric antrum, likely is probably an artifact of under distention, but gastritis/peptic ulcer disease a possibility. Correlate with clinical findings Mild congestion of the mesentery Equivocal mild gallbladder wall thickening. No evidence of gallstones on current or prior studies, however. If there is high clinical suspicion for acute cholecystitis, consider further evaluation with hepatobiliary nuclear scan Nonspecific mild edema of the presacral fat Enlarged prostate with TURP defect, extending into the bladder floor. Also evident previously and grossly unchanged Small right pleural effusion. Underlying basilar atelectasis Other findings as noted, including inferior vena cava filter, calcified granuloma the right lung base, degenerative proliferative spondylosis, evidence of gastric wall clipping, prior appendectomy, small hiatal hernia This agrees with the preliminary interpretation provided overnight by [facility] service. The CT scanner at [facility] is accredited by the [employer] and the scans are performed using protocols designed to limit radiation exposure to as low as reasonably achievable to attain images of sufficient resolution adequate for diagnostic evaluation.
[2017-12-02 12:00] VITALS: BP 127/69
--- NOTE | 2017-12-02 13:08 | Cardiology Report ---
APPROVED REPORT EKG Measurement Heart [id number] Sinus rhythm with premature supraventricular complexes and with occasional premature ventricular complexes Otherwise normal ECG
--- NOTE | 2017-12-02 14:19 | Consultation ---
History of Present Illness General Date patient seen: Dec 02, 2017 Chief Complaint: General Complaint Present Illness HPI 77-year-old male p/w abdominal pain generalized weakness, nausea and anxiety d/ o. the pt didn't have n/v here. the pt is calm and stated that he has episodes of anxiety. no psychotic or manic sxs. he has insomnia. Allergies: Coded Allergies: No Known Allergies (Unverified , 04/23/13) Medication History Scheduled Acyclovir* (Acyclovir*), 400 MG ORAL BID, (Reported) Allopurinol* (Allopurinol*), 300 MG ORAL DAILY Amlodipine Besylate (Norvasc), 5 MG ORAL DAILY Aspirin Ec* (Aspirin Ec*), 81 MG ORAL DAILY Atorvastatin (Lipitor), 80 MG ORAL DAILY, (Reported) Atorvastatin Calcium* (Lipitor*), 20 MG ORAL BEDTIME Clonidine Hcl* (Catapres*), 0.1 MG ORAL EVERY 6 HOURS, (Reported) Diphenoxylate Hcl/Atropine (Lomotil Tablet), 5 MG ORAL TID Ferrous Sulfate (Feosol), 325 MG ORAL DAILY Finasteride (Finasteride), 5 MG ORAL DAILY Lansoprazole* (Lansoprazole*), 15 MG ORAL DAILY, (Reported) Magnesium Oxide (Magox 400), 400 MG ORAL TID, (Reported) Metoprolol Tartrate (Metoprolol Tartrate), 25 MG ORAL Q12HR Pantoprazole* (Protonix*), 40 MG ORAL DAILY, (Reported) Ranitidine Hcl* (Zantac*), 150 MG ORAL BEDTIME Tamsulosin HCl (Flomax), 0.4 MG ORAL BID Thalidomide (Thalomid), 50 MG PO DAILY, (Reported) Valsartan (Diovan), 80 MG ORAL DAILY, (Reported) Vancomycin Hcl (Vancomycin Hcl), 125 MG PO BID, (Reported) Scheduled PRN Acetaminophen* (Acetaminophen 325MG Tablet*), 650 MG ORAL Q4H PRN Clonidine HCl (Clonidine HCl), 0.1 MG ORAL Q8H PRN for sbp>170 Hydrocodone Bit/Acetaminophen 10-325* (Hydrocodon-Acetaminophn 10-325*), 1 EA ORAL Q6H PRN for Severe Pain (Pain Scale 7-10) Loperamide HCl (Loperamide), 2 MG ORAL Q8H PRN for Diarrhea Ondansetron* (Zofran*), 4 MG ORAL Q6H PRN for Nausea & Vomiting, (Reported) Miscellaneous Medications Terazosin Hcl (Terazosin Hcl), 10 MG ORAL, (Reported) Patient History Limited by: medical condition History Provided By: Patient, Medical Record, PMD Healthcare decision maker Resuscitation status Full Code Advanced Directive on File Past Medical/Surgical History Past Medical/Surgical History: (1) Anemia (2) Anemia (3) Anemia (4) Pancreatitis (5) Abdominal pain (6) LUQ abdominal pain (7) Clostridium difficile colitis (8) Chemotherapy-induced diarrhea (9) Amyloidosis (10) CAD (coronary artery disease) (11) UTI (urinary tract infection) (12) Multiple myeloma (13) HTN (hypertension) (14) LLQ abdominal pain (15) BPH (benign prostatic hyperplasia) (16) Clostridium difficile diarrhea (17) Sepsis (18) Hypertension (19) Multiple myeloma (20) C. difficile colitis (21) Confused (22) Chronic pain syndrome (23) Prostate cancer (24) toxic metabolic encephalopathy,multifactorial (25) Acute respiratory failure (26) Dehydration (27) Hypokalemia (28) Hyperkalemia (29) Hyperkalemia (30) Hypomagnesemia (31) Shingles (32) Shingles (33) Fever (34) Pain, abdominal (35) Coagulopathy (36) Contusion (37) Cough (38) Diarrhea (39) Diarrhea (40) Dysentery (41) Flank pain (42) Hypercholesteremia (43) Renal failure, acute (44) Leukocytosis (45) Myeloma (46) Post herpetic neuralgia (47) Postherpetic neuralgia (48) Postherpetic neuralgia (49) Renal failure (50) Renal insufficiency (51) Syncope (52) Thrombocytopenia (53) Agitation (54) PVC (premature ventricular contraction) (55) Weakness (56) Weakness (57) Metabolic acidosis (58) Pulmonary embolism (59) Chemotherapy follow-up examination (60) Bronchitis (61) Chest pain (62) Chronic pain (63) RLQ abdominal pain (64) Acute coronary syndrome (65) Ventilator dependent (66) Acute renal disease (67) Acute renal disease (68) Acute renal disease (69) ACS (acute coronary syndrome) (70) CKD (chronic kidney disease) (71) CKD (chronic kidney disease) (72) Elevated LFTs (73) ESBL (extended spectrum beta-lactamase) producing bacteria infection (74) Left flank pain (75) Acute on chronic renal failure (76) PICC (peripherally inserted central catheter) in place (77) Leg pain, bilateral (78) E coli bacteremia (79) E-coli UTI (80) Episode of generalized weakness (81) Sepsis due to other specified Staphylococcus (82) Elevated troponin I level (83) Acute encephalopathy (84) Acute encephalopathy (85) Bleeding from PICC line (86) Line sepsis (87) Multiple injuries due to trauma (88) Symptomatic anemia (89) r/o paraneoplastic syndrom (90) Acute onset of unresponsiveness, ? etiology.r/o acute respiratory insuficiency (91) r/o ictal event r/oSAH (92) Transient LOC probably postanoxic encephalopathy. (93) acute lumbar strain (94) intermittent generalised tremors without LOC (95) Decreased oral intake (96) Generalized weakness Review of Systems Psychiatric: Reports: prior hx, anxiety, depressed feelings Physical Exam General Appearance: alert Neurologic: oriented x 3, responsive, depressed affect Last 24 Hour Vital Signs Date Time Temp Pulse Resp B/P (MAP) Pulse Ox O2 Delivery O2 Flow Rate FiO2 12/02/17 05:49 96.5 70 20 128/64 97 Room Air 96.5 12/02/17 04:00 96.5 70 20 128/64 97 Room Air 96.5 12/01/17 22:11 97.5 19 137/79 98 Room Air 97.5 12/01/17 21:55 97.2 70 16 139/68 100 Room Air 97.2 12/01/17 21:55 97.2 70 16 139/68 100 Room Air 207.0 12/01/17 18:41 73 16 126/90 100 Room Air 12/01/17 15:38 82 22 120/61 100 Room Air 12/01/17 15:26 97.2 77 16 108/53 99 Room Air 97.2 Intake and Output 12/01/17 12/02/17 19:00 07:00 Intake Total 1000 ml Balance 1000 ml Intake IV Total 1000 ml # Voids 3 Laboratory Tests Test 12/01/17 16:00 12/01/17 17:45 12/01/17 18:55 12/01/17 19:14 White Blood Count 7.6 K/UL (4.8-10.8) Red Blood Count 3.10 M/UL (4.70-6.10) L Hemoglobin 10.4 G/DL (14.2-18.0) L Hematocrit 31.0 % (42.0-52.0) L Mean Corpuscular Volume 100 FL (80-99) H Mean Corpuscular Hemoglobin 33.6 PG (27.0-31.0) H Mean Corpuscular Hemoglobin Concent 33.6 G/DL (32.0-36.0) Red Cell Distribution Width 14.7 % (11.6-14.8) Platelet Count 107 K/UL (150-450) L Mean Platelet Volume 7.1 FL (6.5-10.1) Neutrophils (%) (Auto) 77.0 % (45.0-75.0) H Lymphocytes (%) (Auto) 8.2 % (20.0-45.0) L Monocytes (%) (Auto) 10.7 % (1.0-10.0) H Eosinophils (%) (Auto) 1.8 % (0.0-3.0) Basophils (%) (Auto) 2.2 % (0.0-2.0) H Sodium Level 140 MMOL/L (136-145) Potassium Level 3.4 MMOL/L (3.5-5.1) L Chloride Level 105 MMOL/L (98-107) Carbon Dioxide Level 26 MMOL/L (21-32) Anion Gap 9 mmol/L (5-15) Blood Urea Nitrogen 7 mg/dL (7-18) Creatinine 1.1 MG/DL (0.55-1.30) Estimat Glomerular Filtration Rate mL/min (>60) Glucose Level 140 MG/DL (74-106) H Calcium Level 8.5 MG/DL (8.5-10.1) Total Bilirubin 2.8 MG/DL (0.2-1.0) H Direct Bilirubin 0.4 MG/DL (0.0-0.3) H Aspartate Amino Transf (AST/SGOT) 41 U/L (15-37) H Alanine Aminotransferase (ALT/SGPT) 62 U/L (12-78) Alkaline Phosphatase 101 U/L (46-116) Troponin I 0.006 ng/mL (0.000-0.056) Pro-B-Type Natriuretic Peptide 460 pg/mL (0-125) H Total Protein 6.1 G/DL (6.4-8.2) L Albumin 3.3 G/DL (3.4-5.0) L Globulin 2.8 g/dL Albumin/Globulin Ratio 1.2 (1.0-2.7) Lactic Acid Level 1.60 mmol/L (0.4-2.0) Urine Color Pale yellow Urine Appearance Clear Urine pH 5 (4.5-8.0) Urine Specific [place] 1.005 (1.005-1.035) Urine Protein Negative (NEGATIVE) Urine Glucose (UA) Negative (NEGATIVE) Urine Ketones Negative (NEGATIVE) Urine Occult Blood Negative (NEGATIVE) Urine Nitrite Negative (NEGATIVE) Urine Bilirubin Negative (NEGATIVE) Urine Urobilinogen Normal MG/DL (0.0-1.0) Urine Leukocyte Esterase Negative (NEGATIVE) Lipase 174 U/L (73-393) Test 12/02/17 05:40 White Blood Count 5.2 K/UL (4.8-10.8) Red Blood Count 3.04 M/UL (4.70-6.10) L Hemoglobin 10.0 G/DL (14.2-18.0) L Hematocrit 29.6 % (42.0-52.0) L Mean Corpuscular Volume 97 FL (80-99) Mean Corpuscular Hemoglobin 32.8 PG (27.0-31.0) H Mean Corpuscular Hemoglobin Concent 33.6 G/DL (32.0-36.0) Red Cell Distribution Width 14.0 % (11.6-14.8) Platelet Count 121 K/UL (150-450) L Mean Platelet Volume 6.8 FL (6.5-10.1) Neutrophils (%) (Auto) 68.5 % (45.0-75.0) Lymphocytes (%) (Auto) 15.7 % (20.0-45.0) L Monocytes (%) (Auto) 11.9 % (1.0-10.0) H Eosinophils (%) (Auto) 3.2 % (0.0-3.0) H Basophils (%) (Auto) 0.7 % (0.0-2.0) Activated Partial Thromboplast Time 27 SEC (23-33) Sodium Level 141 MMOL/L (136-145) Potassium Level 3.8 MMOL/L (3.5-5.1) Chloride Level 107 MMOL/L (98-107) Carbon Dioxide Level 28 MMOL/L (21-32) Anion Gap 7 mmol/L (5-15) Blood Urea Nitrogen 6 mg/dL (7-18) L Creatinine 1.0 MG/DL (0.55-1.30) Estimat Glomerular Filtration Rate mL/min (>60) Glucose Level 74 MG/DL (74-106) Calcium Level 8.4 MG/DL (8.5-10.1) L Total Bilirubin 2.9 MG/DL (0.2-1.0) H Direct Bilirubin 0.3 MG/DL (0.0-0.3) Aspartate Amino Transf (AST/SGOT) 31 U/L (15-37) Alanine Aminotransferase (ALT/SGPT) 51 U/L (12-78) Alkaline Phosphatase 87 U/L (46-116) Total Protein 5.4 G/DL (6.4-8.2) L Albumin 2.9 G/DL (3.4-5.0) L Globulin 2.5 g/dL Albumin/Globulin Ratio 1.2 (1.0-2.7) Amylase Level 101 U/L (25-115) Lipase 120 U/L (73-393) Height (Feet): 6 Height (Inches): 2.00 Weight (Pounds): 172 Medications Current Medications Medications (Trade) Dose Ordered Sig/Antionette Route PRN Reason Start Time Stop Time Status Last Admin Dose Admin Acetaminophen (Tylenol) 650 mg Q4H PRN ORAL fever 12/01/17 23:00 12/31/17 22:59 Al Hydroxide/Mg Hydroxide (Mylanta II) 30 ml Q6H PRN ORAL dyspepsia 12/01/17 23:00 12/31/17 22:59 Dextrose (Dextrose 50%) STAT PRN IV Hypoglycemia 12/01/17 23:00 12/31/17 22:59 Dextrose/Sodium Chloride 1,000 ml @ 75 mls/hr [id number] IV 12/01/17 22:51 12/31/17 22:50 12/02/17 12:38 Diphenhydramine HCl (Benadryl) 25 mg Q6H PRN ORAL Itching/Pruritis 12/01/17 23:00 12/31/17 22:59 Heparin Sodium (Porcine) (Heparin 5000 units/ml) 5,000 units EVERY 12 HOURS SUBQ 12/02/17 09:00 01/01/18 08:59 Iopamidol (Isovue-300 100ml) 100 ml NOW PRN INJ Radiology Procedure 12/01/17 16:30 Lorazepam (Ativan 2mg/ml 1ml) 1 mg Q4H PRN IV agitation 12/01/17 23:00 12/08/17 22:59 Metoclopramide HCl (Reglan) 10 mg Q6H PRN IVP servere [place] 12/01/17 23:00 12/31/17 22:59 Morphine Sulfate (Morphine Sulfate) 2 mg Q4H PRN IVP severe Pain (Pain Scale 7-10) 12/01/17 23:00 12/08/17 22:59 Nitroglycerin (Ntg) 0.4 mg Q5M X 3 DOSES PRN SL Prn Chest Pain 12/01/17 23:00 12/31/17 22:59 Ondansetron HCl (Zofran) 4 mg Q6H PRN IVP Nausea & Vomiting 12/01/17 23:00 12/31/17 22:59 Pantoprazole (Protonix) 40 mg DAILY IV 12/02/17 09:00 01/01/18 08:59 12/02/17 08:15 Polyethylene Glycol (Miralax) 17 gm HSPRN PRN ORAL Constipation 12/01/17 23:00 12/31/17 22:59 Promethazine HCl 12.5 mg/Sodium Chloride 55.5 ml @ 110 mls/hr Q6H PRN IV Refractory N/V 12/01/17 23:00 12/31/17 22:59 Promethazine HCl 25 mg/Sodium Chloride 56 ml @ 110 mls/hr Q6H PRN IV Refractory N/V 12/01/17 23:00 12/31/17 22:59 Temazepam (Restoril) 15 mg HSPRN PRN ORAL Insomnia 12/01/17 23:00 12/08/17 22:59 Assessment/Plan Status: stable, progressing Assessment/Plan Anxiety D/o Ativan prn provided ro/Arelis Delvalle M.D. Dec 02, 2017 14:19
[2017-12-02] MEDS ORDERED: LORazepam 1mg tab ORAL PRN (14:30)
--- NOTE | 2017-12-02 14:52 | GI Initial Consult Note ---
History of Present Illness General Date patient seen: Dec 02, 2017 Time patient seen: 14:43 Reason for Hospitalization: General Complaint Referring physician: JASON REYES Reason for Consultation: DIARRHEA Present Illness HPI 77-year-old male p/w abdominal pain generalized weakness and nausea Patient states pain started gradually today, localized to mid lower abdomen, non radiating, sharp in nature, intermittent. No relieving or exacerbating factors. Severity is to 10. Complains of nausea no vomiting also had 2 loose watery episodes of diarrhea today Denies fever, chills. No hx of abdominal surgeries. GI consulted for diarrhea. Has history of Cdiff. Pt seen on floor, awake A& Ox4 NAD with no active s/sx of N/V. Patient receives chemotherapy q for the last 3 years for his ?leukemia. States his diarrhea has resolved. Denies any abdominal pain. 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 He presents today mild anemia and elevated unconjugated bilirubin. 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, colon - biopsied VIOLA FOSTER - Jan 08, 2016 09:31 Home Meds Active Scripts Diphenoxylate Hcl/Atropine (LOMOTIL TABLET) 1 Each Tablet, 5 MG ORAL TID, #1 TAB Prov:Jhonny Anders MD 04/25/16 Acetaminophen* (ACETAMINOPHEN 325MG TABLET*) 325 Mg Tablet, 650 MG ORAL Q4H PRN , #30 TAB Prov:Mando Schilling MD 04/12/16 Tamsulosin HCl (Flomax) 0.4 Mg Cap.er.24h, 0.4 MG ORAL BID, #1 CAP Prov:Lisa Corona [employer] 01/28/16 Ranitidine Hcl* (ZANTAC*) 150 Mg Tablet, 150 MG ORAL BEDTIME, #1 TAB Prov:Lisa Corona NP 01/28/16 Metoprolol Tartrate (Metoprolol Tartrate) 25 Mg Tablet, 25 MG ORAL Q12HR, #1 TAB Prov:Lisa Corona NP 01/28/16 Loperamide HCl (Loperamide) 2 Mg Capsule, 2 MG ORAL Q8H PRN for Diarrhea, #1 CAP Prov:Lisa Corona NP 01/28/16 Hydrocodone Bit/Acetaminophen 10-325* (HYDROCODON-ACETAMINOPHN 10-325*) 1 Each Tablet, 1 EA ORAL Q6H PRN for Severe Pain (Pain Scale 7-10), #1 TAB Prov:Lisa Corona [employer] 01/28/16 Ferrous Sulfate (Feosol) 325 Mg Tablet, 325 MG ORAL DAILY, #1 TAB Prov:Lisa Corona [employer] 01/28/16 Finasteride (FINASTERIDE) 5 Mg Tablet, 5 MG ORAL DAILY, #1 TAB Prov:Lisa Corona [employer] 01/28/16 Clonidine HCl (Clonidine HCl) 0.1 Mg Tablet, 0.1 MG ORAL Q8H PRN for sbp>170, # 1 TAB Prov:Lisa Corona [employer] 01/28/16 Amlodipine Besylate (Norvasc) 5 Mg Tablet, 5 MG ORAL DAILY, #1 TAB Prov:Lisa Corona [employer] 01/28/16 Atorvastatin Calcium* (LIPITOR*) 20 Mg Tablet, 20 MG ORAL BEDTIME, #1 TAB Prov:Lisa Corona [employer] 01/28/16 Aspirin Ec* (ASPIRIN EC*) 81 Mg Tablet.dr, 81 MG ORAL DAILY, #1 TAB Prov:Lisa Corona [employer] 01/28/16 Allopurinol* (ALLOPURINOL*) 100 Mg Tablet, 300 MG ORAL DAILY, #1 TAB Prov:Lisa Corona [employer] 01/28/16 Reported Medications Atorvastatin (Lipitor) 80 Mg Tablet, 80 MG ORAL DAILY, TAB 0 Refills 04/12/17 Valsartan (DIOVAN) 80 Mg Tab, 80 MG ORAL DAILY, TAB 04/12/17 Terazosin Hcl (TERAZOSIN HCL) 10 Mg Capsule, 10 MG ORAL, CAP 04/12/17 Pantoprazole* (PROTONIX*) 40 Mg Tablet.dr, 40 MG ORAL DAILY, TAB 04/04/17 Vancomycin Hcl (VANCOMYCIN HCL) 125 Mg Capsule, 125 MG PO BID for 7 Days, #14 CAP 04/04/17 Magnesium Oxide (MAGOX 400) 400 Mg Tablet, 400 MG ORAL TID, #30 TAB 0 Refills 04/04/17 Thalidomide (THALOMID) 50 Mg Capsule, 50 MG PO DAILY, CAP 06/19/16 Lansoprazole* (LANSOPRAZOLE*) 15 Mg Capsule.dr, 15 MG ORAL DAILY, CAP 06/19/16 Ondansetron* (ZOFRAN*) 4 Mg Tablet, 4 MG ORAL Q6H PRN for Nausea & Vomiting, TAB 06/19/16 Acyclovir* (ACYCLOVIR*) 400 Mg Tablet, 400 MG ORAL BID, TAB 06/19/16 Clonidine Hcl* (CATAPRES*) 0.1 Mg Tablet, 0.1 MG ORAL EVERY 6 HOURS, TAB 07/02/15 Med list reviewed/reconciled: Yes Allergies: Coded Allergies: No Known Allergies (Unverified , 04/23/13) Patient History History Provided By: Patient PMH Narrative Hx Cardiac Problems: Yes - SD, CABG Hx Hypertension: Yes Hx Pacemaker: No - C-DIFF,MYELOMA,CA Hx Asthma: No Hx COPD: No Hx Diabetes: No Hx Cancer: Yes - Leukemia Hx Gastrointestinal Problems: Yes Hx Dialysis: No Hx Neurological Problems: No Hx Cerebrovascular Accident: No Hx Seizures: No Hx Dizziness: No Hx Syncope: No Hx Headaches: No Social History: Denies: smoking, alcohol use, drug use, other Review of Systems All Other Systems: negative except mentioned in HPI Physical Exam Vital Signs Date Time Temp Pulse Resp B/P (MAP) Pulse Ox O2 Delivery O2 Flow Rate FiO2 12/01/17 15:26 97.2 77 16 108/53 99 Room Air 97.2 Sp02 EP Interpretation: reviewed, normal Labs Laboratory Tests Test 12/01/17 16:00 12/01/17 17:45 12/01/17 18:55 12/01/17 19:14 White Blood Count 7.6 K/UL (4.8-10.8) Red Blood Count 3.10 M/UL (4.70-6.10) L Hemoglobin 10.4 G/DL (14.2-18.0) L Hematocrit 31.0 % (42.0-52.0) L Mean Corpuscular Volume 100 FL (80-99) H Mean Corpuscular Hemoglobin 33.6 PG (27.0-31.0) H Mean Corpuscular Hemoglobin Concent 33.6 G/DL (32.0-36.0) Red Cell Distribution Width 14.7 % (11.6-14.8) Platelet Count 107 K/UL (150-450) L Mean Platelet Volume 7.1 FL (6.5-10.1) Neutrophils (%) (Auto) 77.0 % (45.0-75.0) H Lymphocytes (%) (Auto) 8.2 % (20.0-45.0) L Monocytes (%) (Auto) 10.7 % (1.0-10.0) H Eosinophils (%) (Auto) 1.8 % (0.0-3.0) Basophils (%) (Auto) 2.2 % (0.0-2.0) H Sodium Level 140 MMOL/L (136-145) Potassium Level 3.4 MMOL/L (3.5-5.1) L Chloride Level 105 MMOL/L (98-107) Carbon Dioxide Level 26 MMOL/L (21-32) Anion Gap 9 mmol/L (5-15) Blood Urea Nitrogen 7 mg/dL (7-18) Creatinine 1.1 MG/DL (0.55-1.30) Estimat Glomerular Filtration Rate mL/min (>60) Glucose Level 140 MG/DL (74-106) H Calcium Level 8.5 MG/DL (8.5-10.1) Total Bilirubin 2.8 MG/DL (0.2-1.0) H Direct Bilirubin 0.4 MG/DL (0.0-0.3) H Aspartate Amino Transf (AST/SGOT) 41 U/L (15-37) H Alanine Aminotransferase (ALT/SGPT) 62 U/L (12-78) Alkaline Phosphatase 101 U/L (46-116) Troponin I 0.006 ng/mL (0.000-0.056) Pro-B-Type Natriuretic Peptide 460 pg/mL (0-125) H Total Protein 6.1 G/DL (6.4-8.2) L Albumin 3.3 G/DL (3.4-5.0) L Globulin 2.8 g/dL Albumin/Globulin Ratio 1.2 (1.0-2.7) Lactic Acid Level 1.60 mmol/L (0.4-2.0) Urine Color Pale yellow Urine Appearance Clear Urine pH 5 (4.5-8.0) Urine Specific [place] 1.005 (1.005-1.035) Urine Protein Negative (NEGATIVE) Urine Glucose (UA) Negative (NEGATIVE) Urine Ketones Negative (NEGATIVE) Urine Occult Blood Negative (NEGATIVE) Urine Nitrite Negative (NEGATIVE) Urine Bilirubin Negative (NEGATIVE) Urine Urobilinogen Normal MG/DL (0.0-1.0) Urine Leukocyte Esterase Negative (NEGATIVE) Lipase 174 U/L (73-393) Test 12/02/17 05:40 White Blood Count 5.2 K/UL (4.8-10.8) Red Blood Count 3.04 M/UL (4.70-6.10) L Hemoglobin 10.0 G/DL (14.2-18.0) L Hematocrit 29.6 % (42.0-52.0) L Mean Corpuscular Volume 97 FL (80-99) Mean Corpuscular Hemoglobin 32.8 PG (27.0-31.0) H Mean Corpuscular Hemoglobin Concent 33.6 G/DL (32.0-36.0) Red Cell Distribution Width 14.0 % (11.6-14.8) Platelet Count 121 K/UL (150-450) L Mean Platelet Volume 6.8 FL (6.5-10.1) Neutrophils (%) (Auto) 68.5 % (45.0-75.0) Lymphocytes (%) (Auto) 15.7 % (20.0-45.0) L Monocytes (%) (Auto) 11.9 % (1.0-10.0) H Eosinophils (%) (Auto) 3.2 % (0.0-3.0) H Basophils (%) (Auto) 0.7 % (0.0-2.0) Activated Partial Thromboplast Time 27 SEC (23-33) Sodium Level 141 MMOL/L (136-145) Potassium Level 3.8 MMOL/L (3.5-5.1) Chloride Level 107 MMOL/L (98-107) Carbon Dioxide Level 28 MMOL/L (21-32) Anion Gap 7 mmol/L (5-15) Blood Urea Nitrogen 6 mg/dL (7-18) L Creatinine 1.0 MG/DL (0.55-1.30) Estimat Glomerular Filtration Rate mL/min (>60) Glucose Level 74 MG/DL (74-106) Calcium Level 8.4 MG/DL (8.5-10.1) L Total Bilirubin 2.9 MG/DL (0.2-1.0) H Direct Bilirubin 0.3 MG/DL (0.0-0.3) Aspartate Amino Transf (AST/SGOT) 31 U/L (15-37) Alanine Aminotransferase (ALT/SGPT) 51 U/L (12-78) Alkaline Phosphatase 87 U/L (46-116) Total Protein 5.4 G/DL (6.4-8.2) L Albumin 2.9 G/DL (3.4-5.0) L Globulin 2.5 g/dL Albumin/Globulin Ratio 1.2 (1.0-2.7) Amylase Level 101 U/L (25-115) Lipase 120 U/L (73-393) General Appearance: well appearing, no apparent distress, alert Head: normocephalic EENT: PERRL/EOMI, normal ENT inspection Neck: supple Respiratory: normal breath sounds, no respiratory distress Cardiovascular: normal rate Gastrointestinal: normal inspection, non tender, soft, normal bowel sounds, non -distended Rectal: deferred Genitourinary: deferred Musculoskeletal: normal inspection, back normal Neurologic: normal inspection, alert, oriented x3, responsive Psychiatric: normal inspection, judgement/insight normal, memory normal Skin: normal inspection, normal color, no rash, warm/dry, palpation normal, well hydrated Lymphatic: normal inspection, no adenopathy Current Medications Current Medications Medications (Trade) Dose Ordered Sig/Antionette Route PRN Reason Start Time Stop Time Status Last Admin Dose Admin Acetaminophen (Tylenol) 650 mg Q4H PRN ORAL fever 12/01/17 23:00 12/31/17 22:59 Al Hydroxide/Mg Hydroxide (Mylanta II) 30 ml Q6H PRN ORAL dyspepsia 12/01/17 23:00 12/31/17 22:59 Dextrose (Dextrose 50%) STAT PRN IV Hypoglycemia 12/01/17 23:00 12/31/17 22:59 Dextrose/Sodium Chloride 1,000 ml @ 75 mls/hr [id number] IV 12/01/17 22:51 12/31/17 22:50 12/02/17 12:38 Diphenhydramine HCl (Benadryl) 25 mg Q6H PRN ORAL Itching/Pruritis 12/01/17 23:00 12/31/17 22:59 Heparin Sodium (Porcine) (Heparin 5000 units/ml) 5,000 units EVERY 12 HOURS SUBQ 12/02/17 09:00 01/01/18 08:59 Iopamidol (Isovue-300 100ml) 100 ml NOW PRN INJ Radiology Procedure 12/01/17 16:30 Lorazepam (Ativan) 2 mg Q6H PRN ORAL For Anxiety 12/02/17 14:30 12/09/17 14:29 UNV Metoclopramide HCl (Reglan) 10 mg Q6H PRN IVP servere nauasea 12/01/17 23:00 12/31/17 22:59 Morphine Sulfate (Morphine Sulfate) 2 mg Q4H PRN IVP severe Pain (Pain Scale 7-10) 12/01/17 23:00 12/08/17 22:59 Nitroglycerin (Ntg) 0.4 mg Q5M X 3 DOSES PRN SL Prn Chest Pain 12/01/17 23:00 12/31/17 22:59 Ondansetron HCl (Zofran) 4 mg Q6H PRN IVP Nausea & Vomiting 12/01/17 23:00 12/31/17 22:59 Pantoprazole (Protonix) 40 mg DAILY IV 12/02/17 09:00 01/01/18 08:59 12/02/17 08:15 Polyethylene Glycol (Miralax) 17 gm HSPRN PRN ORAL Constipation 12/01/17 23:00 12/31/17 22:59 Promethazine HCl 12.5 mg/Sodium Chloride 55.5 ml @ 110 mls/hr Q6H PRN IV Refractory N/V 12/01/17 23:00 12/31/17 22:59 Promethazine HCl 25 mg/Sodium Chloride 56 ml @ 110 mls/hr Q6H PRN IV Refractory N/V 12/01/17 23:00 12/31/17 22:59 Temazepam (Restoril) 15 mg HSPRN PRN ORAL Insomnia 12/01/17 23:00 12/08/17 22:59 GI: Plan Problems: (1) Symptomatic anemia (2) Chemotherapy-induced diarrhea (3) Chronic pain (4) Diarrhea (5) Anemia (6) Amyloidosis Plan s/p EGD/colonoscopy 2015 >> amyloidosis Vit D deficiency diarrhea resolved symptomatic treatment adv to regular diet send for cdiff/culture if patient has persistent diarrhea monitor H&H, prn transfusions Imodium prn IV hydration + electrolyte replacement lomotil prn abx H2B fu labs fu Vit D Discussed with Dr. Flores. Thank you for this patient referral, we will follow. The patient was seen and examined at bedside and all new and available data was reviewed in the patients chart. I agree with the above findings, impression and plan. (Patient seen earlier today. Signature stamp does not reflect patient encounter time.). - MD Yanique ClaytonBannerLaithNaga [employer] Dec 02, 2017 14:52
--- NOTE | 2017-12-02 15:48 | Diagnostic Imaging Report ---
Indication: Abdominal pain Technique: Gonsalves-scale and duplex images of the upper abdomen were obtained Comparison: CT abdomen and pelvis 12/01/2017, prior ultrasound dated 04/13/2017 Findings: Gallbladder demonstrates mild wall thickening, gallbladder wall thickness 4 mm. However, it is incompletely distended. There are no gallstones demonstrated. Note that gallbladder wall is borderline thickened on the prior exam. Sonographic Hines's sign is negative. Common bile duct measures 6 mm in diameter. No intrahepatic biliary ductal dilatation. Liver demonstrates normal echogenicity, no focal abnormality. Portal vein and hepatic veins are patent. Pancreas is unremarkable. Spleen is unremarkable. Left kidney measures 10 cm in length. Right kidney measures 10.6 cm length. Both kidneys demonstrate normal echogenicity. There is no hydronephrosis. Small left renal cysts demonstrated . Non-aneurysmal abdominal aorta . Impression: Negative for gallstones. There is mild gallbladder wall thickening. This could indicate gallbladder wall thickening secondary to systemic edema, adjacent hepatocellular disease, or could be due to acute cholecystitis either acalculous or due to sonographically occult stones. If there is high clinical suspicion, consider hepatobiliary nuclear scan for further evaluation Negative for dilated ducts No other significant abnormality demonstrated. Incidental finding of left renal cysts
[2017-12-02 16:00] VITALS: BP 117/70
--- NOTE | 2017-12-02 18:34 | History & Physical ---
History and Physical History & Physicial Dictated for Int Med-Dr Villagomez no. [id number] Mando Schilling MD Dec 02, 2017 18:34
[2017-12-02] MEDS: Loperamide 2mg cap ORAL PRN ×2 (19:07→23:52)
[2017-12-02 20:00] VITALS: BP 123/69
--- NOTE | 2017-12-02 22:09 | Consultation ---
History of Present Illness General Chief Complaint: General Complaint Referring physician: JASON REYES Reason for Consultation: DIARRHEA Present Illness Allergies: Coded Allergies: No Known Allergies (Unverified , 04/23/13) Medication History Scheduled Acyclovir* (Acyclovir*), 400 MG ORAL BID, (Reported) Allopurinol* (Allopurinol*), 300 MG ORAL DAILY Amlodipine Besylate (Norvasc), 5 MG ORAL DAILY Aspirin Ec* (Aspirin Ec*), 81 MG ORAL DAILY Atorvastatin (Lipitor), 80 MG ORAL DAILY, (Reported) Atorvastatin Calcium* (Lipitor*), 20 MG ORAL BEDTIME Clonidine Hcl* (Catapres*), 0.1 MG ORAL EVERY 6 HOURS, (Reported) Diphenoxylate Hcl/Atropine (Lomotil Tablet), 5 MG ORAL TID Ferrous Sulfate (Feosol), 325 MG ORAL DAILY Finasteride (Finasteride), 5 MG ORAL DAILY Lansoprazole* (Lansoprazole*), 15 MG ORAL DAILY, (Reported) Magnesium Oxide (Magox 400), 400 MG ORAL TID, (Reported) Metoprolol Tartrate (Metoprolol Tartrate), 25 MG ORAL Q12HR Pantoprazole* (Protonix*), 40 MG ORAL DAILY, (Reported) Ranitidine Hcl* (Zantac*), 150 MG ORAL BEDTIME Tamsulosin HCl (Flomax), 0.4 MG ORAL BID Thalidomide (Thalomid), 50 MG PO DAILY, (Reported) Valsartan (Diovan), 80 MG ORAL DAILY, (Reported) Vancomycin Hcl (Vancomycin Hcl), 125 MG PO BID, (Reported) Scheduled PRN Acetaminophen* (Acetaminophen 325MG Tablet*), 650 MG ORAL Q4H PRN Clonidine HCl (Clonidine HCl), 0.1 MG ORAL Q8H PRN for sbp>170 Hydrocodone Bit/Acetaminophen 10-325* (Hydrocodon-Acetaminophn 10-325*), 1 EA ORAL Q6H PRN for Severe Pain (Pain Scale 7-10) Loperamide HCl (Loperamide), 2 MG ORAL Q8H PRN for Diarrhea Ondansetron* (Zofran*), 4 MG ORAL Q6H PRN for Nausea & Vomiting, (Reported) Miscellaneous Medications Terazosin Hcl (Terazosin Hcl), 10 MG ORAL, (Reported) Patient History Healthcare decision maker Resuscitation status Full Code Advanced Directive on File Physical Exam Last 24 Hour Vital Signs Date Time Temp Pulse Resp B/P (MAP) Pulse Ox O2 Delivery O2 Flow Rate FiO2 12/02/17 20:00 98.2 74 20 123/69 100 Room Air 98.2 12/02/17 16:00 98.9 68 22 117/70 97 Room Air 98.9 12/02/17 12:00 99.0 76 22 127/69 97 Room Air 99.0 12/02/17 08:00 98.6 69 20 148/70 96 Room Air 98.6 12/02/17 05:49 96.5 70 20 128/64 97 Room Air 96.5 12/02/17 04:00 96.5 70 20 128/64 97 Room Air 96.5 12/01/17 22:11 97.5 19 137/79 98 Room Air 97.5 Intake and Output 12/01/17 12/02/17 19:00 07:00 Intake Total 1000 ml Balance 1000 ml IV Total 1000 ml # Voids 3 Laboratory Tests Test 12/02/17 05:40 White Blood Count 5.2 K/UL (4.8-10.8) Red Blood Count 3.04 M/UL (4.70-6.10) L Hemoglobin 10.0 G/DL (14.2-18.0) L Hematocrit 29.6 % (42.0-52.0) L Mean Corpuscular Volume 97 FL (80-99) Mean Corpuscular Hemoglobin 32.8 PG (27.0-31.0) H Mean Corpuscular Hemoglobin Concent 33.6 G/DL (32.0-36.0) Red Cell Distribution Width 14.0 % (11.6-14.8) Platelet Count 121 K/UL (150-450) L Mean Platelet Volume 6.8 FL (6.5-10.1) Neutrophils (%) (Auto) 68.5 % (45.0-75.0) Lymphocytes (%) (Auto) 15.7 % (20.0-45.0) L Monocytes (%) (Auto) 11.9 % (1.0-10.0) H Eosinophils (%) (Auto) 3.2 % (0.0-3.0) H Basophils (%) (Auto) 0.7 % (0.0-2.0) Activated Partial Thromboplast Time 27 SEC (23-33) Sodium Level 141 MMOL/L (136-145) Potassium Level 3.8 MMOL/L (3.5-5.1) Chloride Level 107 MMOL/L (98-107) Carbon Dioxide Level 28 MMOL/L (21-32) Anion Gap 7 mmol/L (5-15) Blood Urea Nitrogen 6 mg/dL (7-18) L Creatinine 1.0 MG/DL (0.55-1.30) Estimat Glomerular Filtration Rate mL/min (>60) Glucose Level 74 MG/DL (74-106) Calcium Level 8.4 MG/DL (8.5-10.1) L Total Bilirubin 2.9 MG/DL (0.2-1.0) H Direct Bilirubin 0.3 MG/DL (0.0-0.3) Aspartate Amino Transf (AST/SGOT) 31 U/L (15-37) Alanine Aminotransferase (ALT/SGPT) 51 U/L (12-78) Alkaline Phosphatase 87 U/L (46-116) Total Protein 5.4 G/DL (6.4-8.2) L Albumin 2.9 G/DL (3.4-5.0) L Globulin 2.5 g/dL Albumin/Globulin Ratio 1.2 (1.0-2.7) Amylase Level 101 U/L (25-115) Lipase 120 U/L (73-393) Height (Feet): 6 Height (Inches): 2.00 Weight (Pounds): 172 Medications Current Medications Medications (Trade) Dose Ordered Sig/Antionette Route PRN Reason Start Time Stop Time Status Last Admin Dose Admin Acetaminophen (Tylenol) 650 mg Q4H PRN ORAL fever 12/01/17 23:00 12/31/17 22:59 Al Hydroxide/Mg Hydroxide (Mylanta II) 30 ml Q6H PRN ORAL dyspepsia 12/01/17 23:00 12/31/17 22:59 Dextrose (Dextrose 50%) STAT PRN IV Hypoglycemia 12/01/17 23:00 12/31/17 22:59 Dextrose/Sodium Chloride 1,000 ml @ 75 mls/hr [id number] IV 12/01/17 22:51 12/31/17 22:50 12/02/17 12:38 Diphenhydramine HCl (Benadryl) 25 mg Q6H PRN ORAL Itching/Pruritis 12/01/17 23:00 12/31/17 22:59 Heparin Sodium (Porcine) (Heparin 5000 units/ml) 5,000 units EVERY 12 HOURS SUBQ 12/02/17 09:00 01/01/18 08:59 Iopamidol (Isovue-300 100ml) 100 ml NOW PRN INJ Radiology Procedure 12/01/17 16:30 Loperamide HCl (Imodium) 2 mg Q4H PRN ORAL Diarrhea 12/02/17 18:30 01/01/18 18:29 12/02/17 19:07 Lorazepam (Ativan) 2 mg Q6H PRN ORAL For Anxiety 12/02/17 14:30 12/09/17 14:29 Metoclopramide HCl (Reglan) 10 mg Q6H PRN IVP servere nauasea 12/01/17 23:00 12/31/17 22:59 Morphine Sulfate (Morphine Sulfate) 2 mg Q4H PRN IVP severe Pain (Pain Scale 7-10) 12/01/17 23:00 12/08/17 22:59 Nitroglycerin (Ntg) 0.4 mg Q5M X 3 DOSES PRN SL Prn Chest Pain 12/01/17 23:00 12/31/17 22:59 Ondansetron HCl (Zofran) 4 mg Q6H PRN IVP Nausea & Vomiting 12/01/17 23:00 12/31/17 22:59 Pantoprazole (Protonix) 40 mg DAILY IV 12/02/17 09:00 01/01/18 08:59 12/02/17 08:15 Polyethylene Glycol (Miralax) 17 gm HSPRN PRN ORAL Constipation 12/01/17 23:00 12/31/17 22:59 Promethazine HCl 12.5 mg/Sodium Chloride 55.5 ml @ 110 mls/hr Q6H PRN IV Refractory N/V 12/01/17 23:00 12/31/17 22:59 Promethazine HCl 25 mg/Sodium Chloride 56 ml @ 110 mls/hr Q6H PRN IV Refractory N/V 12/01/17 23:00 12/31/17 22:59 Temazepam (Restoril) 15 mg HSPRN PRN ORAL Insomnia 12/01/17 23:00 12/08/17 22:59 Marilou Garcia MD Dec 02, 2017 22:09
--- NOTE | 2017-12-02 23:16 | History and Physical Report ---
DATE OF ADMISSION: 12/02/2017 CHIEF COMPLAINT: The patient is a 77-year-old male, who presents with a chief complaint of abdominal pain, nausea, and diarrhea. HISTORY OF PRESENT ILLNESS: The patient was admitted to [facility] earlier this week. The patient was discharged on 11/29/2017. The patient states that he ate couple yesterday, 12/01/2017 for lunch. The patient states last evening, he began to experience nausea. The patient also has bilateral lower quadrant abdominal pain. The patient also had diarrhea. Diarrhea is watery. There is no blood in the diarrhea. The patient presented to [place] emergency room. The patient is admitted for abdominal pain, nausea, diarrhea, and dehydration. PAST MEDICAL HISTORY: Significant for, 1. Multiple myeloma diagnosed in 2013. The patient is followed as an outpatient by Dr. lA. 2. Hypertension. 3. Anemia of chronic disease. 4. History of prostate cancer. 5. History of coronary artery disease. 6. Amyloidosis of the gastrointestinal tract. PAST SURGICAL HISTORY: Significant for, 1. Perforated appendix with exploratory laparotomy and subsequent intra-abdominal abscess in May of 2015. 2. Prostatectomy in 2012. 3. Coronary artery bypass graft. CURRENT MEDICATIONS: 1. Allopurinol 100 mg p.o. daily. 2. Amlodipine 5 mg p.o. daily. 3. Aspirin 81 mg p.o. daily. 4. Atorvastatin 80 mg p.o. daily. 5. Iron sulfate 325 mg p.o. daily. 6. Finasteride 5 mg p.o. daily. 7. [place] 10/325 mg one tablet p.o. q.6 h. p.r.n. 8. Prevacid 15 mg p.o. daily. 9. Magnesium oxide 400 mg p.o. 3 times daily. 10. Metoprolol 25 mg p.o. twice daily. 11. Protonix 40 mg p.o. daily. 12. Flomax 0.4 mg p.o. daily. 13. Thalomid 50 mg p.o. daily. 14. Valsartan 80 mg p.o. daily. ALLERGIES: No known drug allergies. SOCIAL HISTORY: The patient is a . The patient lives alone. The patient denies tobacco or alcohol use. REVIEW OF SYSTEMS: CONSTITUTIONAL: The patient denies weight loss or weight gain. The patient denies fevers or chills. HEENT: The patient denies ear or throat pain. The patient denies headache. CARDIOVASCULAR: The patient denies palpitations or chest pain. CHEST: The patient denies wheeze or shortness of breath. ABDOMEN: The patient complains of bilateral lower abdominal pain as above. The patient complains of nausea. The patient complains of diarrhea. The patient denies constipation. PHYSICAL EXAMINATION: VITAL SIGNS: Temperature 96.5, respirations 20, pulse 70, and blood pressure 120/64. GENERAL: The patient is a well-developed and well-nourished male, in no apparent distress. HEENT: Eyes, pupils equal and responsive to light and accommodation. Extraocular movements are intact. NECK: Supple without lymphadenopathy. CHEST: Lungs are clear to auscultation bilaterally without wheezes or rales. CARDIOVASCULAR: Regular rhythm and rate. S1 and S2 are normal without murmurs, rubs, or gallops. ABDOMEN: Soft. Nondistended with positive bowel sounds. There is pain to palpation in bilateral lower quadrants. There is no rebound or guarding noted. EXTREMITIES: Negative for clubbing, cyanosis, or edema. RECTAL/GENITAL: Refused. NEUROLOGIC: Cranial nerves II through XII are grossly intact without focal deficits. Motor strength is 5/5 bilaterally. Deep tendon reflexes are 2+ plantar. LABORATORY STUDIES: WBC 7.6, hemoglobin 10.5, hematocrit 31.0, and platelets 107,000. Sodium 140, potassium 3.4, chloride 105, CO2 26, BUN 7, creatinine 1.1, and glucose 140. ASSESSMENT: This is a 77-year-old male. 1. Lower abdominal pain. 2. Nausea. 3. Diarrhea. 4. Dehydration. 5. Multiple myeloma. 6. Hypertension. 7. Anemia of chronic disease. 8. History of prostate cancer. 9. Amyloidosis of the gastrointestinal tract. TREATMENT: 1. Abdominal pain/nausea/diarrhea/amyloidosis of the gastrointestinal tract. A Gastroenterology consultation has been obtained with Dr. Bill Flores. We will follow recommendations of Gastroenterology. A Clostridium difficile is pending. We will follow recommendations. 2. Multiple myeloma. This is followed as an outpatient by Dr. Al. 3. Hypertension. The patient is currently hypotensive. Hold antihypertensive medications at this time. 4. Anemia of chronic disease. 5. History of prostate cancer. 6. Amyloidosis of the gastrointestinal tract. Mando Schilling M.D. DR: SAMUEL JOB#: [id number] CC:
[2017-12-03] VITALS: BP 127/67
[2017-12-03] MEDS: D5 1/2NS 1,000 ML IV SCH ×3 (03:15→17:04)
[2017-12-03 04:00] VITALS: BP 108/66
[2017-12-03 07:19] LABS: BASOPHILS % (AUTO) 1.7 % (0.0-2.0); EOSINOPHILS % (AUTO) 3.9 % (0.0-3.0); HEMATOCRIT 28.8 % (42.0-52.0); LYMPHOCYTES % (AUTO) 20.8 % (20.0-45.0); MEAN CORPUSCULAR VOLUME 100 FL (80-99); MONOCYTES % (AUTO) 11.8 % (1.0-10.0); NEUTROPHILS % (AUTO) 61.9 % (45.0-75.0); PLATELET COUNT 124 K/UL (150-450); RED BLOOD COUNT 2.89 M/UL (4.70-6.10); RED CELL DISTRIBUTION WIDTH 14.4 % (11.6-14.8); WHITE BLOOD COUNT 4.7 K/UL (4.8-10.8)
[2017-12-03 07:26] LABS: ALANINE AMINOTRANSFERASE 43 U/L (12-78); ALBUMIN 2.9 G/DL (3.4-5.0); ALBUMIN/GLOBULIN RATIO 1.1 (1.0-2.7); ALKALINE PHOSPHATASE 90 U/L (46-116); ANION GAP 6 mmol/L (5-15); ASPARTATE AMINO TRANSFERASE 29 U/L (15-37); BILIRUBIN,TOTAL 2.6 MG/DL (0.2-1.0); BLOOD UREA NITROGEN 7 mg/dL (7-18); CALCIUM 8.5 MG/DL (8.5-10.1); CARBON DIOXIDE 26 MMOL/L (21-32); CHLORIDE 107 MMOL/L (98-107); CREATININE 1.2 MG/DL (0.55-1.30); PHOSPHORUS 2.8 MG/DL (2.5-4.9); POTASSIUM 3.5 MMOL/L (3.5-5.1); SODIUM 138 MMOL/L (136-145)
[2017-12-03 07:30] LABS: BILIRUBIN,DIRECT 0.4 MG/DL (0.0-0.3)
[2017-12-03] MEDS ORDERED: Albuterol/Ipratropium 3ml neb HHN PRN (07:45)
--- NOTE | 2017-12-03 07:52 | Pulmonology Progress Note ---
Assessment/Plan Assessment/Plan ASSESSMENT Abdominal pain with nausea and diarrhea Dehydration Hypo Mg Amyloidosis of GI tract Elevated bilirubin Anemia of chronic disease History of prostate cancer Multiple myeloma Hypertension PLAN OF CARE Med Surg floor IV fluids Antiemetics and antidiarrheal prn stool for C. dif GI follows PPI trend bili abdominal ultrasound and CT of the abdomen and pelvis noted: no gallstones no dilated but mild gallbladder wall thickening- per GI management O2 prn to keep pulse oximetry above 92% venous duplex BLE due to high risk (already IVC filter ) replace Mg pain management monitor H&H with goal to keep hemoglobin above 7% supportive care BP management case discussed and evaluated by supervising physician Subjective Allergies: Coded Allergies: No Known Allergies (Unverified , 04/23/13) Subjective afebrile, no leucocytosis + intermittent abdominal pain , diarrhea, no melena, no BRBPR HH stable pulse ox stabel on RA Mg-1.4 Objective Last 24 Hour Vital Signs Date Time Temp Pulse Resp B/P (MAP) Pulse Ox O2 Delivery O2 Flow Rate FiO2 12/03/17 04:00 98.4 68 20 108/66 100 Room Air 98.4 12/03/17 00:00 98.6 72 20 127/67 100 Room Air 98.6 12/02/17 20:00 98.2 74 20 123/69 100 Room Air 98.2 12/02/17 16:00 98.9 68 22 117/70 97 Room Air 98.9 12/02/17 12:00 99.0 76 22 127/69 97 Room Air 99.0 12/02/17 08:00 98.6 69 20 148/70 96 Room Air 98.6 Intake and Output 12/02/17 12/03/17 19:00 07:00 Intake Total 1035 ml 870 ml Balance 1035 ml 870 ml Intake Oral 960 ml 120 ml IV Total 75 ml 750 ml # Voids 2 5 # Bowel Movements 2 5 General Appearance: no acute distress, other - awake, responsive, chronically ill looking AA male HEENT: normocephalic, atraumatic, mucous membranes moist Respiratory/Chest: lungs clear, no respiratory distress Cardiovascular: normal rate Abdomen: normal bowel sounds, soft, non tender, non distended Extremities: no edema Neurologic/Psychiatric: abnormal gait, alert, responsive Musculoskeletal: atrophy - BLE Laboratory Tests 12/03/17 06:35: White Blood Count 4.7L, Red Blood Count 2.89L, Hemoglobin 10.0L, Hematocrit 28.8L, Mean Corpuscular Volume 100H, Mean Corpuscular Hemoglobin 34.6H, Mean Corpuscular Hemoglobin Concent 34.7, Red Cell Distribution Width 14.4, Platelet Count 124L, Mean Platelet Volume 7.0, Neutrophils (%) (Auto) 61.9, Lymphocytes ( %) (Auto) 20.8, Monocytes (%) (Auto) 11.8H, Eosinophils (%) (Auto) 3.9H, Basophils (%) (Auto) 1.7, Sodium Level 138, Potassium Level 3.5, Chloride Level 107, Carbon Dioxide Level 26, Anion Gap 6, Blood Urea Nitrogen 7, Creatinine 1.2 , Estimat Glomerular Filtration Rate , Glucose Level 95, Calcium Level 8.5, Phosphorus Level 2.8, Magnesium Level 1.4L, Total Bilirubin 2.6H, Direct Bilirubin 0.4H, Aspartate Amino Transf (AST/SGOT) 29, Alanine Aminotransferase ( ALT/SGPT) 43, Alkaline Phosphatase 90, Total Protein 5.5L, Albumin 2.9L, Globulin 2.6, Albumin/Globulin Ratio 1.1, Vitamin D 25-Hydroxy [Pending], 25- Hydroxy Vitamin D2 [Pending], 25-Hydroxy Vitamin D3 [Pending] Current Medications Medications (Trade) Dose Ordered Sig/Antionette Route PRN Reason Start Time Stop Time Status Last Admin Dose Admin Acetaminophen (Tylenol) 650 mg Q4H PRN ORAL fever 12/01/17 23:00 12/31/17 22:59 Al Hydroxide/Mg Hydroxide (Mylanta II) 30 ml Q6H PRN ORAL dyspepsia 12/01/17 23:00 12/31/17 22:59 Dextrose (Dextrose 50%) STAT PRN IV Hypoglycemia 12/01/17 23:00 12/31/17 22:59 Dextrose/Sodium Chloride 1,000 ml @ 75 mls/hr [id number] IV 12/01/17 22:51 12/31/17 22:50 12/03/17 03:15 Diphenhydramine HCl (Benadryl) 25 mg Q6H PRN ORAL Itching/Pruritis 12/01/17 23:00 12/31/17 22:59 Heparin Sodium (Porcine) (Heparin 5000 units/ml) 5,000 units EVERY 12 HOURS SUBQ 12/02/17 09:00 01/01/18 08:59 Iopamidol (Isovue-300 100ml) 100 ml NOW PRN INJ Radiology Procedure 12/01/17 16:30 Loperamide HCl (Imodium) 2 mg Q4H PRN ORAL Diarrhea 12/02/17 18:30 01/01/18 18:29 12/02/17 23:52 Lorazepam (Ativan) 2 mg Q6H PRN ORAL For Anxiety 12/02/17 14:30 12/09/17 14:29 Metoclopramide HCl (Reglan) 10 mg Q6H PRN IVP servere nauasea 12/01/17 23:00 12/31/17 22:59 Morphine Sulfate (Morphine Sulfate) 2 mg Q4H PRN IVP severe Pain (Pain Scale 7-10) 12/01/17 23:00 12/08/17 22:59 Nitroglycerin (Ntg) 0.4 mg Q5M X 3 DOSES PRN SL Prn Chest Pain 12/01/17 23:00 12/31/17 22:59 Ondansetron HCl (Zofran) 4 mg Q6H PRN IVP Nausea & Vomiting 12/01/17 23:00 12/31/17 22:59 Pantoprazole (Protonix) 40 mg DAILY IV 12/02/17 09:00 01/01/18 08:59 12/02/17 08:15 Polyethylene Glycol (Miralax) 17 gm HSPRN PRN ORAL Constipation 12/01/17 23:00 12/31/17 22:59 Promethazine HCl 12.5 mg/Sodium Chloride 55.5 ml @ 110 mls/hr Q6H PRN IV Refractory N/V 12/01/17 23:00 12/31/17 22:59 Promethazine HCl 25 mg/Sodium Chloride 56 ml @ 110 mls/hr Q6H PRN IV Refractory N/V 12/01/17 23:00 12/31/17 22:59 Temazepam (Restoril) 15 mg HSPRN PRN ORAL Insomnia 12/01/17 23:00 12/08/17 22:59 Aileen Alejandra TRANSLATOR INTERPRETER Dec 03, 2017 07:52
[2017-12-03 08:00] VITALS: BP 125/61
[2017-12-03] MEDS: Heparin 5000 units/ml inj SUBQ SCH ×2 (08:01→20:44)
[2017-12-03] MEDS: Pantoprazole Inj IV SCH (08:02)
[2017-12-03] MEDS: Loperamide 2mg cap ORAL PRN ×2 (08:02→17:00)
[2017-12-03] MEDS: Morphine Sulfate 2mg/ml Inj IVP PRN ×2 (10:12→17:00)
[2017-12-03 12:00] VITALS: BP 121/66
--- NOTE | 2017-12-03 13:39 | Internal Med Progress Note ---
Subjective Date of Service: Dec 03, 2017 Physician Name Schilling,Mando Attending Physician Jovani Villagomez MD Current Medications Medications (Trade) Dose Ordered Sig/Antionette Route PRN Reason Start Time Stop Time Status Last Admin Dose Admin Acetaminophen (Tylenol) 650 mg Q4H PRN ORAL fever 12/01/17 23:00 12/31/17 22:59 Al Hydroxide/Mg Hydroxide (Mylanta II) 30 ml Q6H PRN ORAL dyspepsia 12/01/17 23:00 12/31/17 22:59 Albuterol/ Ipratropium (Albuterol/ Ipratropium) 3 ml Q4H PRN HHN Shortness of Breath 12/03/17 07:45 12/08/17 07:44 Dextrose (Dextrose 50%) STAT PRN IV Hypoglycemia 12/01/17 23:00 12/31/17 22:59 Dextrose/Sodium Chloride 1,000 ml @ 75 mls/hr [id number] IV 12/01/17 22:51 12/31/17 22:50 12/03/17 03:15 Diphenhydramine HCl (Benadryl) 25 mg Q6H PRN ORAL Itching/Pruritis 12/01/17 23:00 12/31/17 22:59 Heparin Sodium (Porcine) (Heparin 5000 units/ml) 5,000 units EVERY 12 HOURS SUBQ 12/02/17 09:00 01/01/18 08:59 Iopamidol (Isovue-300 100ml) 100 ml NOW PRN INJ Radiology Procedure 12/01/17 16:30 Loperamide HCl (Imodium) 2 mg Q4H PRN ORAL Diarrhea 12/02/17 18:30 01/01/18 18:29 12/03/17 08:02 Lorazepam (Ativan) 2 mg Q6H PRN ORAL For Anxiety 12/02/17 14:30 12/09/17 14:29 Metoclopramide HCl (Reglan) 10 mg Q6H PRN IVP servere nauasea 12/01/17 23:00 12/31/17 22:59 Morphine Sulfate (Morphine Sulfate) 2 mg Q4H PRN IVP severe Pain (Pain Scale 7-10) 12/01/17 23:00 12/08/17 22:59 12/03/17 10:12 Nitroglycerin (Ntg) 0.4 mg Q5M X 3 DOSES PRN SL Prn Chest Pain 12/01/17 23:00 12/31/17 22:59 Ondansetron HCl (Zofran) 4 mg Q6H PRN IVP Nausea & Vomiting 12/01/17 23:00 12/31/17 22:59 Pantoprazole (Protonix) 40 mg DAILY IV 12/02/17 09:00 01/01/18 08:59 12/03/17 08:02 Polyethylene Glycol (Miralax) 17 gm HSPRN PRN ORAL Constipation 12/01/17 23:00 12/31/17 22:59 Promethazine HCl 12.5 mg/Sodium Chloride 55.5 ml @ 110 mls/hr Q6H PRN IV Refractory N/V 12/01/17 23:00 12/31/17 22:59 Promethazine HCl 25 mg/Sodium Chloride 56 ml @ 110 mls/hr Q6H PRN IV Refractory N/V 12/01/17 23:00 12/31/17 22:59 Temazepam (Restoril) 15 mg HSPRN PRN ORAL Insomnia 12/01/17 23:00 12/08/17 22:59 Allergies: Coded Allergies: No Known Allergies (Unverified , 04/23/13) ROS Limited/Unobtainable: No Constitutional: Reports: no symptoms HEENT: Reports: no symptoms Cardiovascular: Reports: no symptoms Respiratory: Reports: no symptoms Gastrointestinal/Abdominal: Reports: diarrhea Genitourinary: Reports: no symptoms Neurologic/Psychiatric: Reports: no symptoms Subjective 77 YO M admitted with abdominal pain, nausea and diarrhea. Cover for Int Antonio- Dr Villagomez Objective Last Vital Signs Date Time Temp Pulse Resp B/P (MAP) Pulse Ox O2 Delivery O2 Flow Rate FiO2 12/03/17 12:00 98.2 67 20 121/66 99 Room Air 98.2 General Appearance: WD/WN, no apparent distress, alert EENT: PERRL/EOMI, normal ENT inspection, TMs normal Neck: non-tender, normal alignment, supple, normal inspection Cardiovascular: normal peripheral pulses, normal rate, regular rhythm, no gallop/murmur, no JVD Respiratory/Chest: chest wall non-tender, lungs clear, normal breath sounds, no respiratory distress, no accessory muscle use Abdomen: distended, guarding, tender Extremities: normal range of motion, non-tender Neurologic: director of medical staff services II-XII grossly normal, no motor/sensory deficits Skin: normal pigmentation, warm/dry Laboratory Tests Test 12/03/17 06:35 White Blood Count 4.7 K/UL (4.8-10.8) L Red Blood Count 2.89 M/UL (4.70-6.10) L Hemoglobin 10.0 G/DL (14.2-18.0) L Hematocrit 28.8 % (42.0-52.0) L Mean Corpuscular Volume 100 FL (80-99) H Mean Corpuscular Hemoglobin 34.6 PG (27.0-31.0) H Mean Corpuscular Hemoglobin Concent 34.7 G/DL (32.0-36.0) Red Cell Distribution Width 14.4 % (11.6-14.8) Platelet Count 124 K/UL (150-450) L Mean Platelet Volume 7.0 FL (6.5-10.1) Neutrophils (%) (Auto) 61.9 % (45.0-75.0) Lymphocytes (%) (Auto) 20.8 % (20.0-45.0) Monocytes (%) (Auto) 11.8 % (1.0-10.0) H Eosinophils (%) (Auto) 3.9 % (0.0-3.0) H Basophils (%) (Auto) 1.7 % (0.0-2.0) Sodium Level 138 MMOL/L (136-145) Potassium Level 3.5 MMOL/L (3.5-5.1) Chloride Level 107 MMOL/L (98-107) Carbon Dioxide Level 26 MMOL/L (21-32) Anion Gap 6 mmol/L (5-15) Blood Urea Nitrogen 7 mg/dL (7-18) Creatinine 1.2 MG/DL (0.55-1.30) Estimat Glomerular Filtration Rate mL/min (>60) Glucose Level 95 MG/DL (74-106) Calcium Level 8.5 MG/DL (8.5-10.1) Phosphorus Level 2.8 MG/DL (2.5-4.9) Magnesium Level 1.4 MG/DL (1.8-2.4) L Total Bilirubin 2.6 MG/DL (0.2-1.0) H Direct Bilirubin 0.4 MG/DL (0.0-0.3) H Aspartate Amino Transf (AST/SGOT) 29 U/L (15-37) Alanine Aminotransferase (ALT/SGPT) 43 U/L (12-78) Alkaline Phosphatase 90 U/L (46-116) Total Protein 5.5 G/DL (6.4-8.2) L Albumin 2.9 G/DL (3.4-5.0) L Globulin 2.6 g/dL Albumin/Globulin Ratio 1.1 (1.0-2.7) Vitamin D 25-Hydroxy Pending 25-Hydroxy Vitamin D2 Pending 25-Hydroxy Vitamin D3 Pending Intake and Output 12/02/17 12/03/17 19:00 07:00 Intake Total 1035 ml 870 ml Balance 1035 ml 870 ml Intake Oral 960 ml 120 ml IV Total 75 ml 750 ml # Voids 2 5 # Bowel Movements 2 5 Assessment/Plan Problem List: (1) RLQ abdominal pain (2) LLQ abdominal pain (3) Diarrhea Assessment & Plan: Resolved. (4) Multiple myeloma Assessment & Plan: See onc note. (5) HTN (hypertension) (6) Anemia (7) Amyloidosis Assessment & Plan: GI. See GI note. Status: progressing Mando Schilling MD Dec 03, 2017 13:39
[2017-12-03 16:00] VITALS: BP 120/64
[2017-12-03] MEDS ORDERED: D5 1/2NS 1000ml IV ONE (17:58)
[2017-12-03 20:00] VITALS: BP 107/58
--- NOTE | 2017-12-03 20:21 | General Progress Note ---
Assessment/Plan Assessment/Plan Assessment - MM - GI tract Amyloidosis - Chronic diarrhea - past h/o C Diff, although recently negative Recommendations - QID Immodium - await C Diff assay - May need additional daily lomotil Subjective Allergies: Coded Allergies: No Known Allergies (Unverified , 04/23/13) Subjective feels same still with diarrhea tolerating PO Objective Last 24 Hour Vital Signs Date Time Temp Pulse Resp B/P (MAP) Pulse Ox O2 Delivery O2 Flow Rate FiO2 12/03/17 16:00 98.1 68 20 120/64 100 Room Air 98.1 12/03/17 12:00 98.2 67 20 121/66 99 Room Air 98.2 12/03/17 08:00 98.8 71 20 125/61 100 Room Air 98.8 12/03/17 04:00 98.4 68 20 108/66 100 Room Air 98.4 12/03/17 00:00 98.6 72 20 127/67 100 Room Air 98.6 Intake and Output 12/02/17 12/03/17 19:00 07:00 Intake Total 1035 ml 870 ml Balance 1035 ml 870 ml Intake Oral 960 ml 120 ml IV Total 75 ml 750 ml # Voids 2 5 # Bowel Movements 2 5 Laboratory Tests 12/03/17 06:35: White Blood Count 4.7L, Red Blood Count 2.89L, Hemoglobin 10.0L, Hematocrit 28.8L, Mean Corpuscular Volume 100H, Mean Corpuscular Hemoglobin 34.6H, Mean Corpuscular Hemoglobin Concent 34.7, Red Cell Distribution Width 14.4, Platelet Count 124L, Mean Platelet Volume 7.0, Neutrophils (%) (Auto) 61.9, Lymphocytes ( %) (Auto) 20.8, Monocytes (%) (Auto) 11.8H, Eosinophils (%) (Auto) 3.9H, Basophils (%) (Auto) 1.7, Sodium Level 138, Potassium Level 3.5, Chloride Level 107, Carbon Dioxide Level 26, Anion Gap 6, Blood Urea Nitrogen 7, Creatinine 1.2 , Estimat Glomerular Filtration Rate , Glucose Level 95, Calcium Level 8.5, Phosphorus Level 2.8, Magnesium Level 1.4L, Total Bilirubin 2.6H, Direct Bilirubin 0.4H, Aspartate Amino Transf (AST/SGOT) 29, Alanine Aminotransferase ( ALT/SGPT) 43, Alkaline Phosphatase 90, Total Protein 5.5L, Albumin 2.9L, Globulin 2.6, Albumin/Globulin Ratio 1.1, Vitamin D 25-Hydroxy [Pending], 25- Hydroxy Vitamin D2 [Pending], 25-Hydroxy Vitamin D3 [Pending] Height (Feet): 6 Height (Inches): 2.00 Weight (Pounds): 172 Objective WDWN NCAT Supple CTA RRR Soft ND NT no edema non focal Krunal Rivera MD Dec 03, 2017 20:21
[2017-12-03] MEDS: Loperamide 2mg cap ORAL SCH (20:43)
[2017-12-04] VITALS (7 sets, daily range): BP systolic 99–131; BP diastolic 53–63
[2017-12-04] MEDS: Morphine Sulfate 2mg/ml Inj IVP PRN ×2 (00:17→08:22)
[2017-12-04] MEDS: Loperamide 2mg cap ORAL SCH ×4 (05:18→20:27)
[2017-12-04] MEDS: D5 1/2NS 1,000 ML IV SCH ×2 (07:55→23:16)
[2017-12-04 07:58] LABS: BASOPHILS % (AUTO) 2.2 % (0.0-2.0); EOSINOPHILS % (AUTO) 3.7 % (0.0-3.0); HEMATOCRIT 29.9 % (42.0-52.0); HEMOGLOBIN 9.8 G/DL (14.2-18.0); LYMPHOCYTES % (AUTO) 18.9 % (20.0-45.0); MEAN CORPUSCULAR VOLUME 101 FL (80-99); MONOCYTES % (AUTO) 13.5 % (1.0-10.0); NEUTROPHILS % (AUTO) 61.8 % (45.0-75.0); PLATELET COUNT 127 K/UL (150-450); RED BLOOD COUNT 2.98 M/UL (4.70-6.10); RED CELL DISTRIBUTION WIDTH 14.4 % (11.6-14.8); WHITE BLOOD COUNT 4.3 K/UL (4.8-10.8)
[2017-12-04 08:10] LABS: ANION GAP 7 mmol/L (5-15); BLOOD UREA NITROGEN 6 mg/dL (7-18); CALCIUM 7.9 MG/DL (8.5-10.1); CARBON DIOXIDE 24 MMOL/L (21-32); CHLORIDE 107 MMOL/L (98-107); CREATININE 1.2 MG/DL (0.55-1.30); POTASSIUM 3.5 MMOL/L (3.5-5.1); SODIUM 138 MMOL/L (136-145)
[2017-12-04] MEDS: Pantoprazole Inj IV SCH (08:22)
[2017-12-04] MEDS: Heparin 5000 units/ml inj SUBQ SCH ×2 (09:00→20:27)
--- NOTE | 2017-12-04 09:03 | Pulmonology Progress Note ---
Assessment/Plan Assessment/Plan ASSESSMENT Abdominal pain with nausea and diarrhea Dehydration Hypo Mg Amyloidosis of GI tract Elevated bilirubin Anemia of chronic disease History of prostate cancer Multiple myeloma Hypertension protein calorie malnutrition PLAN OF CARE Med Surg floor IV fluids Antiemetics and antidiarrheal prn stool for C. dif negative GI follows PPI trend bili abdominal ultrasound and CT of the abdomen and pelvis noted: no gallstones no dilated but mild gallbladder wall thickening- per GI management dietary eval and further recs re nutritional [id number] O2 prn to keep pulse oximetry above 92% venous duplex BLE due to high risk (already IVC filter ) Mg stable after replacement pain management monitor H&H with goal to keep hemoglobin above 7% supportive care BP management PT/OT case discussed and evaluated by supervising physician Subjective Allergies: Coded Allergies: No Known Allergies (Unverified , 04/23/13) Subjective afebrile, no leucocytosis + intermittent abdominal pain , diarrhea improved no melena, no BRBPR HH stable pulse ox stable on RA poor appetite Objective Last 24 Hour Vital Signs Date Time Temp Pulse Resp B/P (MAP) Pulse Ox O2 Delivery O2 Flow Rate FiO2 12/04/17 08:22 98.4 12/04/17 04:00 98.4 72 20 102/59 99 Room Air 98.4 12/04/17 00:47 98.0 12/04/17 00:17 98.0 12/04/17 00:00 97.7 77 20 109/63 99 Room Air 97.7 12/03/17 20:00 98.0 71 20 107/58 97 Room Air 98.0 12/03/17 16:00 98.1 68 20 120/64 100 Room Air 98.1 12/03/17 12:00 98.2 67 20 121/66 99 Room Air 98.2 Intake and Output 12/03/17 12/04/17 19:00 07:00 Intake Total 1305 ml 1920 ml Output Total 400 ml 1050 ml Balance 905 ml 870 ml Intake Oral 480 ml 1020 ml IV Total 825 ml 900 ml Output Urine Total 400 ml 1050 ml # Bowel Movements 1 Objective General Appearance: no acute distress, awake, responsive, chronically ill looking AA male HEENT: normocephalic, atraumatic, mucous membranes moist Respiratory/Chest: lungs clear, no respiratory distress Cardiovascular: normal rate Abdomen: normal bowel sounds, soft, non tender, non distended Extremities: no edema Neurologic/Psychiatric: abnormal gait, alert, responsive Musculoskeletal: atrophy - BLE Microbiology Date/Time Source Procedure Growth Status 12/01/17 17:00 Nose MRSA Culture - Final NO METHICILLIN RESISTANT STAPH AUREUS... Complete 12/03/17 10:00 Stool Clostridium difficile Toxin Assay - Final Complete 12/01/17 17:00 Rectum VRE Culture - Final Enterococcus Faecalis - Vre Enterococcus Faecium - Vre Complete Laboratory Tests 12/04/17 07:50: White Blood Count 4.3L, Red Blood Count 2.98L, Hemoglobin 9.8L, Hematocrit 29.9L , Mean Corpuscular Volume 101H, Mean Corpuscular Hemoglobin 33.0H, Mean Corpuscular Hemoglobin Concent 32.9, Red Cell Distribution Width 14.4, Platelet Count 127L, Mean Platelet Volume 6.9, Neutrophils (%) (Auto) 61.8, Lymphocytes ( %) (Auto) 18.9L, Monocytes (%) (Auto) 13.5H, Eosinophils (%) (Auto) 3.7H, Basophils (%) (Auto) 2.2H, Sodium Level 138, Potassium Level 3.5, Chloride Level 107, Carbon Dioxide Level 24, Anion Gap 7, Blood Urea Nitrogen 6L, Creatinine 1.2, Estimat Glomerular Filtration Rate , Glucose Level 94, Calcium Level 7.9L, Magnesium Level 1.8 Current Medications Medications (Trade) Dose Ordered Sig/Antionette Route PRN Reason Start Time Stop Time Status Last Admin Dose Admin Acetaminophen (Tylenol) 650 mg Q4H PRN ORAL fever 12/01/17 23:00 12/31/17 22:59 Al Hydroxide/Mg Hydroxide (Mylanta II) 30 ml Q6H PRN ORAL dyspepsia 12/01/17 23:00 12/31/17 22:59 Albuterol/ Ipratropium (Albuterol/ Ipratropium) 3 ml Q4H PRN HHN Shortness of Breath 12/03/17 07:45 12/08/17 07:44 Dextrose (Dextrose 50%) STAT PRN IV Hypoglycemia 12/01/17 23:00 12/31/17 22:59 Dextrose/Sodium Chloride 1,000 ml @ 75 mls/hr [id number] IV 12/01/17 22:51 12/31/17 22:50 7/1/18 07:55 Diphenhydramine HCl (Benadryl) 25 mg Q6H PRN ORAL Itching/Pruritis 12/01/17 23:00 12/31/17 22:59 Heparin Sodium (Porcine) (Heparin 5000 units/ml) 5,000 units EVERY 12 HOURS SUBQ 12/02/17 09:00 01/01/18 08:59 Iopamidol (Isovue-300 100ml) 100 ml NOW PRN INJ Radiology Procedure 12/01/17 16:30 Loperamide HCl (Imodium) 2 mg Q4H PRN ORAL Diarrhea 12/02/17 18:30 01/01/18 18:29 12/03/17 17:00 Loperamide HCl (Imodium) 2 mg QID ORAL 12/03/17 21:00 01/02/18 20:59 12/04/17 08:26 Lorazepam (Ativan) 2 mg Q6H PRN ORAL For Anxiety 12/02/17 14:30 12/09/17 14:29 Metoclopramide HCl (Reglan) 10 mg Q6H PRN IVP servere nauasea 12/01/17 23:00 12/31/17 22:59 Morphine Sulfate (Morphine Sulfate) 2 mg Q4H PRN IVP severe Pain (Pain Scale 7-10) 12/01/17 23:00 12/08/17 22:59 12/04/17 08:22 Nitroglycerin (Ntg) 0.4 mg Q5M X 3 DOSES PRN SL Prn Chest Pain 12/01/17 23:00 12/31/17 22:59 Ondansetron HCl (Zofran) 4 mg Q6H PRN IVP Nausea & Vomiting 12/01/17 23:00 12/31/17 22:59 Pantoprazole (Protonix) 40 mg DAILY IV 12/02/17 09:00 01/01/18 08:59 12/04/17 08:22 Polyethylene Glycol (Miralax) 17 gm HSPRN PRN ORAL Constipation 12/01/17 23:00 12/31/17 22:59 Promethazine HCl 12.5 mg/Sodium Chloride 55.5 ml @ 110 mls/hr Q6H PRN IV Refractory N/V 6/28/18 23:00 12/31/17 22:59 Promethazine HCl 25 mg/Sodium Chloride 56 ml @ 110 mls/hr Q6H PRN IV Refractory N/V 12/01/17 23:00 12/31/17 22:59 Temazepam (Restoril) 15 mg HSPRN PRN ORAL Insomnia 12/01/17 23:00 12/08/17 22:59 Aileen Alejandra NP Dec 04, 2017 09:03
[2017-12-04] MEDS: Loperamide 2mg cap ORAL PRN (12:39)
--- NOTE | 2017-12-04 13:07 | General Progress Note ---
Assessment/Plan Assessment/Plan Assessment - MM - GI tract Amyloidosis - Chronic diarrhea - better only with combination of Imodium and Lomotil - past h/o C Diff, although recently negative Recommendations - QID Immodium - await C Diff assay --> Negative - May need additional daily Lomotil Subjective Allergies: Coded Allergies: No Known Allergies (Unverified , 04/23/13) Subjective diarrhea better tolerating PO Objective Last 24 Hour Vital Signs Date Time Temp Pulse Resp B/P (MAP) Pulse Ox O2 Delivery O2 Flow Rate FiO2 12/04/17 12:00 97.7 61 20 113/58 100 Room Air 97.7 12/04/17 09:12 98.4 12/04/17 08:22 98.4 12/04/17 08:00 98.2 67 18 99/53 100 Room Air 98.2 12/04/17 04:00 98.4 72 20 102/59 99 Room Air 98.4 12/04/17 00:17 98.0 12/04/17 00:00 97.7 77 20 109/63 99 Room Air 97.7 12/03/17 20:00 98.0 71 20 107/58 97 Room Air 98.0 12/03/17 16:00 98.1 68 20 120/64 100 Room Air 98.1 Intake and Output 12/03/17 12/04/17 19:00 07:00 Intake Total 1305 ml 1920 ml Output Total 400 ml 1050 ml Balance 905 ml 870 ml Intake Oral 480 ml 1020 ml IV Total 825 ml 900 ml Output Urine Total 400 ml 1050 ml # Bowel Movements 1 Laboratory Tests 12/04/17 07:50: White Blood Count 4.3L, Red Blood Count 2.98L, Hemoglobin 9.8L, Hematocrit 29.9L , Mean Corpuscular Volume 101H, Mean Corpuscular Hemoglobin 33.0H, Mean Corpuscular Hemoglobin Concent 32.9, Red Cell Distribution Width 14.4, Platelet Count 127L, Mean Platelet Volume 6.9, Neutrophils (%) (Auto) 61.8, Lymphocytes ( %) (Auto) 18.9L, Monocytes (%) (Auto) 13.5H, Eosinophils (%) (Auto) 3.7H, Basophils (%) (Auto) 2.2H, Sodium Level 138, Potassium Level 3.5, Chloride Level 107, Carbon Dioxide Level 24, Anion Gap 7, Blood Urea Nitrogen 6L, Creatinine 1.2, Estimat Glomerular Filtration Rate , Glucose Level 94, Calcium Level 7.9L, Magnesium Level 1.8 Height (Feet): 6 Height (Inches): 2.00 Weight (Pounds): 172 Objective WDWN NCAT Supple CTA RRR Soft ND NT no edema non focal Krunal Rivera MD Dec 04, 2017 13:07
--- NOTE | 2017-12-04 15:03 | Internal Med Progress Note ---
Subjective Date of Service: Dec 04, 2017 Physician Name SchillingMando Attending Physician Jovani Villagomez MD Current Medications Medications (Trade) Dose Ordered Sig/Antionette Route PRN Reason Start Time Stop Time Status Last Admin Dose Admin Acetaminophen (Tylenol) 650 mg Q4H PRN ORAL fever 12/01/17 23:00 12/31/17 22:59 Al Hydroxide/Mg Hydroxide (Mylanta II) 30 ml Q6H PRN ORAL dyspepsia 12/01/17 23:00 12/31/17 22:59 Albuterol/ Ipratropium (Albuterol/ Ipratropium) 3 ml Q4H PRN HHN Shortness of Breath 12/03/17 07:45 12/08/17 07:44 Dextrose (Dextrose 50%) STAT PRN IV Hypoglycemia 12/01/17 23:00 12/31/17 22:59 Dextrose/Sodium Chloride 1,000 ml @ 75 mls/hr [id number] IV 12/01/17 22:51 12/31/17 22:50 12/04/17 07:55 Diphenhydramine HCl (Benadryl) 25 mg Q6H PRN ORAL Itching/Pruritis 12/01/17 23:00 12/31/17 22:59 Heparin Sodium (Porcine) (Heparin 5000 units/ml) 5,000 units EVERY 12 HOURS SUBQ 12/02/17 09:00 01/01/18 08:59 Iopamidol (Isovue-300 100ml) 100 ml NOW PRN INJ Radiology Procedure 12/01/17 16:30 Loperamide HCl (Imodium) 2 mg Q4H PRN ORAL Diarrhea 12/02/17 18:30 01/01/18 18:29 12/04/17 12:39 Loperamide HCl (Imodium) 2 mg QID ORAL 12/03/17 21:00 01/02/18 20:59 12/04/17 08:26 Lorazepam (Ativan) 2 mg Q6H PRN ORAL For Anxiety 12/02/17 14:30 12/09/17 14:29 Metoclopramide HCl (Reglan) 10 mg Q6H PRN IVP servere nauasea 12/01/17 23:00 12/31/17 22:59 Morphine Sulfate (Morphine Sulfate) 2 mg Q4H PRN IVP severe Pain (Pain Scale 7-10) 12/01/17 23:00 12/08/17 22:59 12/04/17 08:22 Nitroglycerin (Ntg) 0.4 mg Q5M X 3 DOSES PRN SL Prn Chest Pain 12/01/17 23:00 12/31/17 22:59 Ondansetron HCl (Zofran) 4 mg Q6H PRN IVP Nausea & Vomiting 12/01/17 23:00 12/31/17 22:59 Pantoprazole (Protonix) 40 mg DAILY IV 12/02/17 09:00 01/01/18 08:59 12/04/17 08:22 Polyethylene Glycol (Miralax) 17 gm HSPRN PRN ORAL Constipation 12/01/17 23:00 12/31/17 22:59 Promethazine HCl 12.5 mg/Sodium Chloride 55.5 ml @ 110 mls/hr Q6H PRN IV Refractory N/V 12/01/17 23:00 12/31/17 22:59 Promethazine HCl 25 mg/Sodium Chloride 56 ml @ 110 mls/hr Q6H PRN IV Refractory N/V 12/01/17 23:00 12/31/17 22:59 Temazepam (Restoril) 15 mg HSPRN PRN ORAL Insomnia 12/01/17 23:00 12/08/17 22:59 Allergies: Coded Allergies: No Known Allergies (Unverified , 04/23/13) ROS Limited/Unobtainable: No Constitutional: Reports: no symptoms HEENT: Reports: no symptoms Cardiovascular: Reports: no symptoms Respiratory: Reports: no symptoms Gastrointestinal/Abdominal: Reports: no symptoms Genitourinary: Reports: no symptoms Neurologic/Psychiatric: Reports: no symptoms Subjective 77 YO M admitted with abdominal pain, nausea and diarrhea. Cover for Int Antonio- Dr Villagomez Objective Last Vital Signs Date Time Temp Pulse Resp B/P (MAP) Pulse Ox O2 Delivery O2 Flow Rate FiO2 12/04/17 12:00 97.7 61 20 113/58 100 Room Air 97.7 Laboratory Tests Test 12/04/17 07:50 White Blood Count 4.3 K/UL (4.8-10.8) L Red Blood Count 2.98 M/UL (4.70-6.10) L Hemoglobin 9.8 G/DL (14.2-18.0) L Hematocrit 29.9 % (42.0-52.0) L Mean Corpuscular Volume 101 FL (80-99) H Mean Corpuscular Hemoglobin 33.0 PG (27.0-31.0) H Mean Corpuscular Hemoglobin Concent 32.9 G/DL (32.0-36.0) Red Cell Distribution Width 14.4 % (11.6-14.8) Platelet Count 127 K/UL (150-450) L Mean Platelet Volume 6.9 FL (6.5-10.1) Neutrophils (%) (Auto) 61.8 % (45.0-75.0) Lymphocytes (%) (Auto) 18.9 % (20.0-45.0) L Monocytes (%) (Auto) 13.5 % (1.0-10.0) H Eosinophils (%) (Auto) 3.7 % (0.0-3.0) H Basophils (%) (Auto) 2.2 % (0.0-2.0) H Sodium Level 138 MMOL/L (136-145) Potassium Level 3.5 MMOL/L (3.5-5.1) Chloride Level 107 MMOL/L (98-107) Carbon Dioxide Level 24 MMOL/L (21-32) Anion Gap 7 mmol/L (5-15) Blood Urea Nitrogen 6 mg/dL (7-18) L Creatinine 1.2 MG/DL (0.55-1.30) Estimat Glomerular Filtration Rate mL/min (>60) Glucose Level 94 MG/DL (74-106) Calcium Level 7.9 MG/DL (8.5-10.1) L Magnesium Level 1.8 MG/DL (1.8-2.4) Microbiology Date/Time Source Procedure Growth Status 12/01/17 17:00 Nose MRSA Culture - Final NO METHICILLIN RESISTANT STAPH AUREUS... Complete 12/03/17 10:00 Stool Clostridium difficile Toxin Assay - Final Complete 12/01/17 17:00 Rectum VRE Culture - Final Enterococcus Faecalis - Vre Enterococcus Faecium - Vre Complete Intake and Output 12/03/17 12/04/17 19:00 07:00 Intake Total 1305 ml 1920 ml Output Total 400 ml 1050 ml Balance 905 ml 870 ml Intake Oral 480 ml 1020 ml IV Total 825 ml 900 ml Output Urine Total 400 ml 1050 ml # Bowel Movements 1 Objective General Appearance: WD/WN, no apparent distress, alert EENT: PERRL/EOMI, normal ENT inspection, TMs normal Neck: non-tender, normal alignment, supple, normal inspection Cardiovascular: normal peripheral pulses, normal rate, regular rhythm, no gallop/murmur, no JVD Respiratory/Chest: chest wall non-tender, lungs clear, normal breath sounds, no respiratory distress, no accessory muscle use Abdomen: distended, guarding, tender Extremities: normal range of motion, non-tender 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 Resolved. (4) Multiple myeloma Assessment & Plan: See onc note. (5) HTN (hypertension) (6) Anemia (7) Amyloidosis Assessment & Plan: GI. See GI note. Status: progressing Mando Schilling MD Dec 04, 2017 15:03
[2017-12-04] MEDS ORDERED: D5 1/2NS 1000ml IV ONE (16:37)
[2017-12-05 04:00] VITALS: BP 135/67
[2017-12-05 06:29] LABS: BASOPHILS % (AUTO) 1.6 % (0.0-2.0); EOSINOPHILS % (AUTO) 3.8 % (0.0-3.0); HEMATOCRIT 29.2 % (42.0-52.0); HEMOGLOBIN 9.6 G/DL (14.2-18.0); LYMPHOCYTES % (AUTO) 20.1 % (20.0-45.0); MEAN CORPUSCULAR VOLUME 101 FL (80-99); MONOCYTES % (AUTO) 12.4 % (1.0-10.0); NEUTROPHILS % (AUTO) 62.1 % (45.0-75.0); PLATELET COUNT 126 K/UL (150-450); RED BLOOD COUNT 2.89 M/UL (4.70-6.10); WHITE BLOOD COUNT 4.2 K/UL (4.8-10.8)
[2017-12-05 07:04] LABS: ANION GAP 8 mmol/L (5-15); BLOOD UREA NITROGEN 7 mg/dL (7-18); CARBON DIOXIDE 24 MMOL/L (21-32); CHLORIDE 108 MMOL/L (98-107); CREATININE 1.3 MG/DL (0.55-1.30); POTASSIUM 3.7 MMOL/L (3.5-5.1); SODIUM 140 MMOL/L (136-145)
[2017-12-05 08:00] VITALS: BP 112/58
[2017-12-05] MEDS: Pantoprazole Inj IV SCH (08:30)
[2017-12-05] MEDS: Morphine Sulfate 2mg/ml Inj IVP PRN ×2 (08:32→12:02)
[2017-12-05] MEDS: Loperamide 2mg cap ORAL SCH ×4 (08:32→21:31)
[2017-12-05] MEDS: Heparin 5000 units/ml inj SUBQ SCH ×2 (08:34→21:00)
--- NOTE | 2017-12-05 10:05 | Diagnostic Imaging Report ---
APPROVED REPORT CPT Code: 84757 Present Symptoms Shortness of breath BILATERAL: Imaging reveals a patent deep venous system bilaterally. There is no evidence of thrombus within the femoral, popliteal or tibial segments. The greater saphenous veins are also within normal limits. Doppler indicates normal spontaneous flow within these segments.
--- NOTE | 2017-12-05 10:07 | GI Progress Note ---
Assessment/Plan Problems: (1) Dehydration ICD Codes: E86.0 - Dehydration SNOMED: 85186223 (2) Amyloidosis ICD Codes: E85.9 - Amyloidosis, unspecified SNOMED: 90585365 (3) Anemia ICD Codes: D64.9 - Anemia SNOMED: 931333930 (4) Generalized weakness ICD Codes: R53.1 - Weakness SNOMED: 09868528 (5) Diarrhea ICD Codes: R19.7 - Diarrhea SNOMED: 07106064 (6) Multiple myeloma ICD Codes: C90.00 - Multiple myeloma SNOMED: 633212741 Status: stable Status Narrative Discussed with Dr. Flores. Assessment/Plan Assessment - MM - GI tract Amyloidosis - Chronic diarrhea - better only with combination of Imodium and Lomotil - past h/o C Diff, although recently negative - refused colonoscopy, refused HIDA Recommendations - QID Imodium - await C Diff assay --> Negative - May need additional daily Lomotil - lactose free diet - celiac panel - dc planning The patient was seen and examined at bedside and all new and available data was reviewed in the patients chart. I agree with the above findings, impression and plan. (Patient seen earlier today. Signature stamp does not reflect patient encounter time.). - Bill Flores MD Subjective Gastrointestinal/Abdominal: Reports: no symptoms Objective Last 24 Hour Vital Signs Date Time Temp Pulse Resp B/P (MAP) Pulse Ox O2 Delivery O2 Flow Rate FiO2 12/05/17 09:02 97.4 12/05/17 08:32 97.4 12/05/17 08:00 98.2 70 20 112/58 97 98.2 12/05/17 04:00 97.4 68 20 135/67 98 Room Air 97.4 12/04/17 23:48 98.3 74 20 131/61 96 Room Air 98.3 12/04/17 20:40 72 20 Room Air 12/04/17 20:00 97.5 69 18 104/58 100 Room Air 97.5 12/04/17 16:00 97.7 74 18 102/58 96 Room Air 97.7 12/04/17 12:00 97.7 61 20 113/58 100 Room Air 97.7 Intake and Output 12/04/17 12/05/17 19:00 07:00 Intake Total 1300 ml 1670 ml Balance 1300 ml 1670 ml Intake Oral 400 ml 920 ml IV Total 900 ml 750 ml # Voids 4 3 # Bowel Movements 4 Laboratory Tests Test 12/05/17 05:20 White Blood Count 4.2 K/UL (4.8-10.8) L Red Blood Count 2.89 M/UL (4.70-6.10) L Hemoglobin 9.6 G/DL (14.2-18.0) L Hematocrit 29.2 % (42.0-52.0) L Mean Corpuscular Volume 101 FL (80-99) H Mean Corpuscular Hemoglobin 33.3 PG (27.0-31.0) H Mean Corpuscular Hemoglobin Concent 32.9 G/DL (32.0-36.0) Red Cell Distribution Width 14.0 % (11.6-14.8) Platelet Count 126 K/UL (150-450) L Mean Platelet Volume 6.5 FL (6.5-10.1) Neutrophils (%) (Auto) 62.1 % (45.0-75.0) Lymphocytes (%) (Auto) 20.1 % (20.0-45.0) Monocytes (%) (Auto) 12.4 % (1.0-10.0) H Eosinophils (%) (Auto) 3.8 % (0.0-3.0) H Basophils (%) (Auto) 1.6 % (0.0-2.0) Sodium Level 140 MMOL/L (136-145) Potassium Level 3.7 MMOL/L (3.5-5.1) Chloride Level 108 MMOL/L (98-107) H Carbon Dioxide Level 24 MMOL/L (21-32) Anion Gap 8 mmol/L (5-15) Blood Urea Nitrogen 7 mg/dL (7-18) Creatinine 1.3 MG/DL (0.55-1.30) Estimat Glomerular Filtration Rate mL/min (>60) Glucose Level 86 MG/DL (74-106) Calcium Level 8.0 MG/DL (8.5-10.1) L Height (Feet): 6 Height (Inches): 2.00 Weight (Pounds): 172 General Appearance: WD/WN, no apparent distress, alert Cardiovascular: normal rate Respiratory/Chest: normal breath sounds, no respiratory distress Abdominal Exam: normal bowel sounds, non tender, soft Extremities: normal range of motion, non-tender Racheal Chanel NP Dec 05, 2017 10:07
--- NOTE | 2017-12-05 10:25 | Internal Med Progress Note ---
Subjective Date of Service: Dec 05, 2017 Physician Name SchillingMando Attending Physician Jovani Villagomez MD Current Medications Medications (Trade) Dose Ordered Sig/Antionette Route PRN Reason Start Time Stop Time Status Last Admin Dose Admin Acetaminophen (Tylenol) 650 mg Q4H PRN ORAL fever 12/01/17 23:00 12/31/17 22:59 Al Hydroxide/Mg Hydroxide (Mylanta II) 30 ml Q6H PRN ORAL dyspepsia 12/01/17 23:00 12/31/17 22:59 Albuterol/ Ipratropium (Albuterol/ Ipratropium) 3 ml Q4H PRN HHN Shortness of Breath 12/03/17 07:45 12/08/17 07:44 Dextrose (Dextrose 50%) STAT PRN IV Hypoglycemia 12/01/17 23:00 12/31/17 22:59 Dextrose/Sodium Chloride 1,000 ml @ 75 mls/hr [id number] IV 12/01/17 22:51 12/31/17 22:50 12/04/17 23:16 Diphenhydramine HCl (Benadryl) 25 mg Q6H PRN ORAL Itching/Pruritis 12/01/17 23:00 12/31/17 22:59 Heparin Sodium (Porcine) (Heparin 5000 units/ml) 5,000 units EVERY 12 HOURS SUBQ 12/02/17 09:00 01/01/18 08:59 Iopamidol (Isovue-300 100ml) 100 ml NOW PRN INJ Radiology Procedure 12/01/17 16:30 Loperamide HCl (Imodium) 2 mg Q4H PRN ORAL Diarrhea 12/02/17 18:30 01/01/18 18:29 12/04/17 12:39 Loperamide HCl (Imodium) 2 mg QID ORAL 12/03/17 21:00 01/02/18 20:59 12/05/17 08:32 Lorazepam (Ativan) 2 mg Q6H PRN ORAL For Anxiety 12/02/17 14:30 12/09/17 14:29 Metoclopramide HCl (Reglan) 10 mg Q6H PRN IVP servere nauasea 12/01/17 23:00 12/31/17 22:59 Morphine Sulfate (Morphine Sulfate) 2 mg Q4H PRN IVP severe Pain (Pain Scale 7-10) 12/01/17 23:00 12/08/17 22:59 12/05/17 08:32 Nitroglycerin (Ntg) 0.4 mg Q5M X 3 DOSES PRN SL Prn Chest Pain 12/01/17 23:00 12/31/17 22:59 Ondansetron HCl (Zofran) 4 mg Q6H PRN IVP Nausea & Vomiting 12/01/17 23:00 12/31/17 22:59 Pantoprazole (Protonix) 40 mg DAILY IV 12/02/17 09:00 01/01/18 08:59 12/05/17 08:30 Polyethylene Glycol (Miralax) 17 gm HSPRN PRN ORAL Constipation 12/01/17 23:00 12/31/17 22:59 Promethazine HCl 12.5 mg/Sodium Chloride 55.5 ml @ 110 mls/hr Q6H PRN IV Refractory N/V 12/01/17 23:00 12/31/17 22:59 Promethazine HCl 25 mg/Sodium Chloride 56 ml @ 110 mls/hr Q6H PRN IV Refractory N/V 12/01/17 23:00 12/31/17 22:59 Temazepam (Restoril) 15 mg HSPRN PRN ORAL Insomnia 12/01/17 23:00 12/08/17 22:59 Allergies: Coded Allergies: No Known Allergies (Unverified , 04/23/13) ROS Limited/Unobtainable: No Constitutional: Reports: no symptoms HEENT: Reports: no symptoms Cardiovascular: Reports: no symptoms Respiratory: Reports: no symptoms Gastrointestinal/Abdominal: Reports: no symptoms Genitourinary: Reports: no symptoms Neurologic/Psychiatric: Reports: no symptoms Subjective 77 YO M admitted with abdominal pain, nausea and diarrhea. Cover for Int Antonio- Dr Villagomez Objective Last Vital Signs Date Time Temp Pulse Resp B/P (MAP) Pulse Ox O2 Delivery O2 Flow Rate FiO2 12/05/17 09:02 97.4 12/05/17 08:00 70 20 112/58 97 12/05/17 04:00 Room Air Laboratory Tests Test 12/05/17 05:20 White Blood Count 4.2 K/UL (4.8-10.8) L Red Blood Count 2.89 M/UL (4.70-6.10) L Hemoglobin 9.6 G/DL (14.2-18.0) L Hematocrit 29.2 % (42.0-52.0) L Mean Corpuscular Volume 101 FL (80-99) H Mean Corpuscular Hemoglobin 33.3 PG (27.0-31.0) H Mean Corpuscular Hemoglobin Concent 32.9 G/DL (32.0-36.0) Red Cell Distribution Width 14.0 % (11.6-14.8) Platelet Count 126 K/UL (150-450) L Mean Platelet Volume 6.5 FL (6.5-10.1) Neutrophils (%) (Auto) 62.1 % (45.0-75.0) Lymphocytes (%) (Auto) 20.1 % (20.0-45.0) Monocytes (%) (Auto) 12.4 % (1.0-10.0) H Eosinophils (%) (Auto) 3.8 % (0.0-3.0) H Basophils (%) (Auto) 1.6 % (0.0-2.0) Sodium Level 140 MMOL/L (136-145) Potassium Level 3.7 MMOL/L (3.5-5.1) Chloride Level 108 MMOL/L (98-107) H Carbon Dioxide Level 24 MMOL/L (21-32) Anion Gap 8 mmol/L (5-15) Blood Urea Nitrogen 7 mg/dL (7-18) Creatinine 1.3 MG/DL (0.55-1.30) Estimat Glomerular Filtration Rate mL/min (>60) Glucose Level 86 MG/DL (74-106) Calcium Level 8.0 MG/DL (8.5-10.1) L Microbiology Date/Time Source Procedure Growth Status 12/03/17 10:00 Stool Clostridium difficile Toxin Assay - Final Complete Intake and Output 12/04/17 12/05/17 19:00 07:00 Intake Total 1300 ml 1670 ml Balance 1300 ml 1670 ml Intake Oral 400 ml 920 ml IV Total 900 ml 750 ml # Voids 4 3 # Bowel Movements 4 Objective General Appearance: WD/WN, no apparent distress, alert EENT: PERRL/EOMI, normal ENT inspection, TMs normal Neck: non-tender, normal alignment, supple, normal inspection Cardiovascular: normal peripheral pulses, normal rate, regular rhythm, no gallop/murmur, no JVD Respiratory/Chest: chest wall non-tender, lungs clear, normal breath sounds, no respiratory distress, no accessory muscle use Abdomen: distended, guarding, tender Extremities: normal range of motion, non-tender 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 Resolved. (4) Multiple myeloma Assessment & Plan: See onc note. Scheduled for chemo tomorrow 12/06/17. (5) HTN (hypertension) (6) Anemia (7) Amyloidosis Assessment & Plan: GI. See GI note. Status: progressing Mando Schilling MD Dec 05, 2017 10:25
[2017-12-05 12:00] VITALS: BP 128/51
--- NOTE | 2017-12-05 13:33 | Pulmonology Progress Note ---
Assessment/Plan Problems: (1) Abdominal pain (2) Decreased oral intake (3) Diarrhea (4) Multiple myeloma (5) RLQ abdominal pain (6) Amyloidosis Assessment/Plan improving symptomatic treatment f/u GI recommendations check electrolytes dvt prophylaxis pt/ot dc planning soon Subjective ROS Limited/Unobtainable: No Constitutional: Reports: no symptoms Respiratory: Reports: no symptoms Cardiovascular: Reports: no symptoms Allergies: Coded Allergies: No Known Allergies (Unverified , 04/23/13) Objective Last 24 Hour Vital Signs Date Time Temp Pulse Resp B/P (MAP) Pulse Ox O2 Delivery O2 Flow Rate FiO2 12/05/17 12:32 97.4 12/05/17 12:02 97.4 12/05/17 12:00 97.8 20 128/51 63 Room Air 97.8 12/05/17 08:32 97.4 12/05/17 08:00 98.2 70 20 112/58 97 98.2 12/05/17 04:00 97.4 68 20 135/67 98 Room Air 97.4 12/04/17 23:48 98.3 74 20 131/61 96 Room Air 98.3 12/04/17 20:40 72 20 Room Air 12/04/17 20:00 97.5 69 18 104/58 100 Room Air 97.5 12/04/17 16:00 97.7 74 18 102/58 96 Room Air 97.7 Intake and Output 12/04/17 12/05/17 19:00 07:00 Intake Total 1300 ml 1670 ml Balance 1300 ml 1670 ml Intake Oral 400 ml 920 ml IV Total 900 ml 750 ml # Voids 4 3 # Bowel Movements 4 General Appearance: WD/WN HEENT: normocephalic, anicteric Respiratory/Chest: chest wall non-tender, normal breath sounds Cardiovascular: normal peripheral pulses, normal rate Abdomen: soft, non tender, non distended Extremities: no cyanosis 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, alert Microbiology Date/Time Source Procedure Growth Status 12/03/17 10:00 Stool Clostridium difficile Toxin Assay - Final Complete Laboratory Tests 12/05/17 05:20: White Blood Count 4.2L, Red Blood Count 2.89L, Hemoglobin 9.6L, Hematocrit 29.2L , Mean Corpuscular Volume 101H, Mean Corpuscular Hemoglobin 33.3H, Mean Corpuscular Hemoglobin Concent 32.9, Red Cell Distribution Width 14.0, Platelet Count 126L, Mean Platelet Volume 6.5, Neutrophils (%) (Auto) 62.1, Lymphocytes ( %) (Auto) 20.1, Monocytes (%) (Auto) 12.4H, Eosinophils (%) (Auto) 3.8H, Basophils (%) (Auto) 1.6, Sodium Level 140, Potassium Level 3.7, Chloride Level 108H, Carbon Dioxide Level 24, Anion Gap 8, Blood Urea Nitrogen 7, Creatinine 1.3, Estimat Glomerular Filtration Rate , Glucose Level 86, Calcium Level 8.0L Current Medications Medications (Trade) Dose Ordered Sig/Antionette Route PRN Reason Start Time Stop Time Status Last Admin Dose Admin Acetaminophen (Tylenol) 650 mg Q4H PRN ORAL fever 12/01/17 23:00 12/31/17 22:59 Al Hydroxide/Mg Hydroxide (Mylanta II) 30 ml Q6H PRN ORAL dyspepsia 12/01/17 23:00 12/31/17 22:59 Albuterol/ Ipratropium (Albuterol/ Ipratropium) 3 ml Q4H PRN HHN Shortness of Breath 12/03/17 07:45 12/08/17 07:44 Dextrose (Dextrose 50%) STAT PRN IV Hypoglycemia 12/01/17 23:00 12/31/17 22:59 Dextrose/Sodium Chloride 1,000 ml @ 75 mls/hr [id number] IV 12/01/17 22:51 12/31/17 22:50 12/04/17 23:16 Diphenhydramine HCl (Benadryl) 25 mg Q6H PRN ORAL Itching/Pruritis 12/01/17 23:00 12/31/17 22:59 Heparin Sodium (Porcine) (Heparin 5000 units/ml) 5,000 units EVERY 12 HOURS SUBQ 12/02/17 09:00 01/01/18 08:59 Iopamidol (Isovue-300 100ml) 100 ml NOW PRN INJ Radiology Procedure 12/01/17 16:30 Loperamide HCl (Imodium) 2 mg Q4H PRN ORAL Diarrhea 12/02/17 18:30 01/01/18 18:29 12/04/17 12:39 Loperamide HCl (Imodium) 2 mg QID ORAL 12/03/17 21:00 01/02/18 20:59 12/05/17 12:01 Lorazepam (Ativan) 2 mg Q6H PRN ORAL For Anxiety 12/02/17 14:30 12/09/17 14:29 Metoclopramide HCl (Reglan) 10 mg Q6H PRN IVP servere najonathonsea 12/01/17 23:00 12/31/17 22:59 Morphine Sulfate (Morphine Sulfate) 2 mg Q4H PRN IVP severe Pain (Pain Scale 7-10) 12/01/17 23:00 12/08/17 22:59 12/05/17 12:02 Nitroglycerin (Ntg) 0.4 mg Q5M X 3 DOSES PRN SL Prn Chest Pain 12/01/17 23:00 12/31/17 22:59 Ondansetron HCl (Zofran) 4 mg Q6H PRN IVP Nausea & Vomiting 12/01/17 23:00 12/31/17 22:59 Pantoprazole (Protonix) 40 mg DAILY IV 12/02/17 09:00 01/01/18 08:59 12/05/17 08:30 Polyethylene Glycol (Miralax) 17 gm HSPRN PRN ORAL Constipation 12/01/17 23:00 12/31/17 22:59 Promethazine HCl 12.5 mg/Sodium Chloride 55.5 ml @ 110 mls/hr Q6H PRN IV Refractory N/V 12/01/17 23:00 12/31/17 22:59 Promethazine HCl 25 mg/Sodium Chloride 56 ml @ 110 mls/hr Q6H PRN IV Refractory N/V 12/01/17 23:00 12/31/17 22:59 Temazepam (Restoril) 15 mg HSPRN PRN ORAL Insomnia 12/01/17 23:00 12/08/17 22:59 Marilou Garcia MD Dec 05, 2017 13:32
[2017-12-05 16:00] VITALS: BP 124/66
[2017-12-05 20:00] VITALS: BP 117/57
[2017-12-05] MEDS ORDERED: Morphine Sulfate 2mg/ml Inj IVP PRN (20:30)
[2017-12-05] MEDS ORDERED: Morphine IR 15mg tab ORAL PRN (23:00)
--- NOTE | 2017-12-05 23:02 | General Progress Note ---
Subjective Date patient seen: Dec 05, 2017 Allergies: Coded Allergies: No Known Allergies (Unverified , 04/23/13) Objective Last 24 Hour Vital Signs Date Time Temp Pulse Resp B/P (MAP) Pulse Ox O2 Delivery O2 Flow Rate FiO2 12/05/17 20:14 70 20 Room Air 21 12/05/17 20:00 98.0 70 20 117/57 100 98.0 12/05/17 16:00 98.1 69 20 124/66 98 98.1 12/05/17 12:32 97.4 12/05/17 12:02 97.4 12/05/17 12:00 97.8 20 128/51 63 Room Air 97.8 12/05/17 08:32 97.4 12/05/17 08:07 75 20 Room Air 12/05/17 08:00 98.2 70 20 112/58 97 98.2 12/05/17 04:00 97.4 68 20 135/67 98 Room Air 97.4 12/04/17 23:48 98.3 74 20 131/61 96 Room Air 98.3 Intake and Output 12/04/17 12/05/17 19:00 07:00 Intake Total 1300 ml 1670 ml Balance 1300 ml 1670 ml Intake Oral 400 ml 920 ml IV Total 900 ml 750 ml # Voids 4 3 # Bowel Movements 4 Laboratory Tests 12/05/17 05:20: White Blood Count 4.2L, Red Blood Count 2.89L, Hemoglobin 9.6L, Hematocrit 29.2L , Mean Corpuscular Volume 101H, Mean Corpuscular Hemoglobin 33.3H, Mean Corpuscular Hemoglobin Concent 32.9, Red Cell Distribution Width 14.0, Platelet Count 126L, Mean Platelet Volume 6.5, Neutrophils (%) (Auto) 62.1, Lymphocytes ( %) (Auto) 20.1, Monocytes (%) (Auto) 12.4H, Eosinophils (%) (Auto) 3.8H, Basophils (%) (Auto) 1.6, Sodium Level 140, Potassium Level 3.7, Chloride Level 108H, Carbon Dioxide Level 24, Anion Gap 8, Blood Urea Nitrogen 7, Creatinine 1.3, Estimat Glomerular Filtration Rate , Glucose Level 86, Calcium Level 8.0L Height (Feet): 6 Height (Inches): 2.00 Weight (Pounds): 172 Farhadi,Pantea MD Dec 05, 2017 23:01
[2017-12-06] VITALS: BP 129/70
[2017-12-06 04:00] VITALS: BP 121/58
[2017-12-06 07:51] LABS: EOSINOPHILS % (AUTO) 4.8 % (0.0-3.0); HEMATOCRIT 29.2 % (42.0-52.0); HEMOGLOBIN 9.8 G/DL (14.2-18.0); LYMPHOCYTES % (AUTO) 19.7 % (20.0-45.0); MEAN CORPUSCULAR VOLUME 100 FL (80-99); MONOCYTES % (AUTO) 12.4 % (1.0-10.0); NEUTROPHILS % (AUTO) 62.2 % (45.0-75.0); PLATELET COUNT 153 K/UL (150-450); RED BLOOD COUNT 2.91 M/UL (4.70-6.10); WHITE BLOOD COUNT 4.7 K/UL (4.8-10.8)
[2017-12-06 08:00] VITALS: BP 118/74
[2017-12-06] MEDS: Loperamide 2mg cap ORAL SCH (08:13)
[2017-12-06] MEDS: Pantoprazole Inj IV SCH (08:25)
[2017-12-06] MEDS: Heparin 5000 units/ml inj SUBQ SCH (08:25)
[2017-12-06 11:46] LABS: ANION GAP 10 mmol/L (5-15); BLOOD UREA NITROGEN 7 mg/dL (7-18); CARBON DIOXIDE 22 MMOL/L (21-32); CHLORIDE 107 MMOL/L (98-107); POTASSIUM 3.6 MMOL/L (3.5-5.1); SODIUM 141 MMOL/L (136-145)
[2017-12-06 11:47] LABS: ALANINE AMINOTRANSFERASE 34 U/L (12-78); ASPARTATE AMINO TRANSFERASE 24 U/L (15-37); BILIRUBIN,TOTAL 1.1 MG/DL (0.2-1.0); CALCIUM 7.7 MG/DL (8.5-10.1); CREATININE 1.1 MG/DL (0.55-1.30)
[2017-12-06 11:48] LABS: ALBUMIN 2.8 G/DL (3.4-5.0); ALKALINE PHOSPHATASE 89 U/L (46-116)
[2017-12-06 11:49] LABS: ALBUMIN/GLOBULIN RATIO 1.1 (1.0-2.7); BILIRUBIN,DIRECT 0.1 MG/DL (0.0-0.3)
[2017-12-06] MEDS ORDERED: D5 1/2NS 1000ml IV ONE (12:14)
--- NOTE | 2017-12-06 14:51 | GI Progress Note ---
Assessment/Plan Problems: (1) Dehydration ICD Codes: E86.0 - Dehydration SNOMED: 09943968 (2) Amyloidosis ICD Codes: E85.9 - Amyloidosis, unspecified SNOMED: 39563867 (3) Anemia ICD Codes: D64.9 - Anemia SNOMED: 174089963 (4) Generalized weakness ICD Codes: R53.1 - Weakness SNOMED: 84491114 (5) Diarrhea ICD Codes: R19.7 - Diarrhea SNOMED: 32171194 (6) Multiple myeloma ICD Codes: C90.00 - Multiple myeloma SNOMED: 189461203 Status: stable Status Narrative Discussed with Dr. Flores. Assessment/Plan Assessment - MM - GI tract Amyloidosis - Chronic diarrhea - better only with combination of Imodium and Lomotil - past h/o C Diff, although recently negative - refused colonoscopy, refused HIDA Recommendations - QID Imodium - await C Diff assay --> Negative - May need additional daily Lomotil - lactose free diet - celiac panel - dc planning The patient was seen and examined at bedside and all new and available data was reviewed in the patients chart. I agree with the above findings, impression and plan. (Patient seen earlier today. Signature stamp does not reflect patient encounter time.). - Bill Flores MD Subjective Subjective diarrhea resolved Objective Last 24 Hour Vital Signs Date Time Temp Pulse Resp B/P (MAP) Pulse Ox O2 Delivery O2 Flow Rate FiO2 12/06/17 08:00 98.1 73 21 118/74 99 Room Air 98.1 12/06/17 07:40 65 20 Room Air 21 12/06/17 04:00 98.5 68 20 121/58 100 Room Air 98.5 12/06/17 00:00 98.2 69 20 129/70 100 Room Air 98.2 12/05/17 20:14 70 20 Room Air 21 12/05/17 20:00 98.0 70 20 117/57 100 98.0 12/05/17 16:00 98.1 69 20 124/66 98 98.1 Intake and Output 12/05/17 12/06/17 19:00 07:00 Intake Total 1233 ml Output Total 400 ml 1600 ml Balance 833 ml -1600 ml Intake Oral 708 ml IV Total 525 ml Output Urine Total 400 ml 1600 ml Laboratory Tests Test 12/06/17 06:00 12/06/17 07:00 White Blood Count 4.7 K/UL (4.8-10.8) L Red Blood Count 2.91 M/UL (4.70-6.10) L Hemoglobin 9.8 G/DL (14.2-18.0) L Hematocrit 29.2 % (42.0-52.0) L Mean Corpuscular Volume 100 FL (80-99) H Mean Corpuscular Hemoglobin 33.6 PG (27.0-31.0) H Mean Corpuscular Hemoglobin Concent 33.6 G/DL (32.0-36.0) Red Cell Distribution Width 14.0 % (11.6-14.8) Platelet Count 153 K/UL (150-450) Mean Platelet Volume 6.5 FL (6.5-10.1) Neutrophils (%) (Auto) 62.2 % (45.0-75.0) Lymphocytes (%) (Auto) 19.7 % (20.0-45.0) L Monocytes (%) (Auto) 12.4 % (1.0-10.0) H Eosinophils (%) (Auto) 4.8 % (0.0-3.0) H Basophils (%) (Auto) 1.0 % (0.0-2.0) Sodium Level 141 MMOL/L (136-145) Potassium Level 3.6 MMOL/L (3.5-5.1) Chloride Level 107 MMOL/L (98-107) Carbon Dioxide Level 22 MMOL/L (21-32) Anion Gap 10 mmol/L (5-15) Blood Urea Nitrogen 7 mg/dL (7-18) Creatinine 1.1 MG/DL (0.55-1.30) Estimat Glomerular Filtration Rate mL/min (>60) Glucose Level 81 MG/DL (74-106) Calcium Level 7.7 MG/DL (8.5-10.1) L Total Bilirubin 1.1 MG/DL (0.2-1.0) H Direct Bilirubin 0.1 MG/DL (0.0-0.3) Aspartate Amino Transf (AST/SGOT) 24 U/L (15-37) Alanine Aminotransferase (ALT/SGPT) 34 U/L (12-78) Alkaline Phosphatase 89 U/L (46-116) Total Protein 5.4 G/DL (6.4-8.2) L Albumin 2.8 G/DL (3.4-5.0) L Globulin 3.9 g/dL Albumin/Globulin Ratio 1.1 (1.0-2.7) Tissue Transglutaminase IgG Ab Pending Tissue Transglutaminase IgA Ab Pending Height (Feet): 6 Height (Inches): 2.00 Weight (Pounds): 172 General Appearance: WD/WN, no apparent distress, alert Cardiovascular: normal rate Respiratory/Chest: normal breath sounds, no respiratory distress Abdominal Exam: normal bowel sounds, non tender, soft Extremities: normal range of motion, non-tender Racheal Chanel NP Dec 06, 2017 14:51
--- NOTE | 2017-12-06 16:20 | General Progress Note ---
Assessment/Plan Assessment/Plan Anxiety D/o Ativan prn provided ro/st Subjective Date patient seen: Dec 06, 2017 Neurologic/Psychiatric: Reports: anxiety, depressed, emotional problems Allergies: Coded Allergies: No Known Allergies (Unverified , 04/23/13) Objective Last 24 Hour Vital Signs Date Time Temp Pulse Resp B/P (MAP) Pulse Ox O2 Delivery O2 Flow Rate FiO2 12/06/17 08:00 98.1 73 21 118/74 99 Room Air 98.1 12/06/17 07:40 65 20 Room Air 21 12/06/17 04:00 98.5 68 20 121/58 100 Room Air 98.5 12/06/17 00:00 98.2 69 20 129/70 100 Room Air 98.2 12/05/17 20:14 70 20 Room Air 21 12/05/17 20:00 98.0 70 20 117/57 100 98.0 Intake and Output 12/05/17 12/06/17 19:00 07:00 Intake Total 1233 ml Output Total 400 ml 1600 ml Balance 833 ml -1600 ml Intake Oral 708 ml IV Total 525 ml Output Urine Total 400 ml 1600 ml Laboratory Tests 12/06/17 06:00: White Blood Count 4.7L, Red Blood Count 2.91L, Hemoglobin 9.8L, Hematocrit 29.2L , Mean Corpuscular Volume 100H, Mean Corpuscular Hemoglobin 33.6H, Mean Corpuscular Hemoglobin Concent 33.6, Red Cell Distribution Width 14.0, Platelet Count 153, Mean Platelet Volume 6.5, Neutrophils (%) (Auto) 62.2, Lymphocytes (% ) (Auto) 19.7L, Monocytes (%) (Auto) 12.4H, Eosinophils (%) (Auto) 4.8H, Basophils (%) (Auto) 1.0, Sodium Level 141, Potassium Level 3.6, Chloride Level 107, Carbon Dioxide Level 22, Anion Gap 10, Blood Urea Nitrogen 7, Creatinine 1.1, Estimat Glomerular Filtration Rate , Glucose Level 81, Calcium Level 7.7L, Total Bilirubin 1.1H, Direct Bilirubin 0.1, Aspartate Amino Transf (AST/SGOT) 24 , Alanine Aminotransferase (ALT/SGPT) 34, Alkaline Phosphatase 89, Total Protein 5.4L, Albumin 2.8L, Globulin 3.9, Albumin/Globulin Ratio 1.1 12/06/17 07:00: Tissue Transglutaminase IgG Ab [Pending], Tissue Transglutaminase IgA Ab [ Pending] Height (Feet): 6 Height (Inches): 2.00 Weight (Pounds): 172 General Appearance: no apparent distress, alert Arelis Leonard MD Dec 06, 2017 16:20
--- NOTE | 2017-12-08 15:07 | Discharge Summary ---
Discharge Summary Discharge Summary _ DATE OF ADMISSION: 12/01/2017 DATE OF DISCHARGE: 12/06/2017 REASON FOR ADMISSION: 77 years old male with past medical history of multiply myeloma, diagnosed in 2013, hypertension, anemia of chronic disease, history of prostate cancer, status post prostatectomy , coronary artery disease , status post coronary artery bypass graft, amyloidosis of gastrointestinal tract , history of exploratory laparotomy with intra-abdominal abscesses, Clostridium difficile infection , presented to [facility] with nausea , watery diarrhea and bilateral lower quadrants abdominal pain. Denied blood in the stool . Vital signs were stable. No leukocytosis. Hemoglobin 10.4, hematocrit 31. Platelets 107. Potassium 3.4. AST 41, AST 62. Total bilirubin 2.8. Troponin negative. ProBNP 460. Lactic acid 1.6. Urinalysis negative for UTI. EKG revealed normal sinus rhythm, no acute ischemic changes. Chest x-ray revealed no acute cardiopulmonary pathology. CT of abdominal pelvis revealed equivocal wall thickening of the colon, probably an artifact of under but colitis could not be completely excludable. Equivocal wall thickening of the gastric antrum, likely an artifact but gastritis/peptic ulcer disease may be a possibility. Mild congestion of the mesentery Equivocal mild gallbladder wall thickening. No evidence of gallstones on current or prior studies, however. Enlarged prostate with TURP defect, extending into the bladder floor. Small right pleural effusion. Underlying basilar atelectasis Other findings included inferior vena cava filter, calcified granuloma of the right lung base, degenerative proliferative spondylosis, evidence of gastric wall clipping, prior appendectomy, small hiatal hernia Abdominal ultrasound revealed no gallstones, no dilated ducts Patient admitted with diagnoses of abdominal pain, nausea, diarrhea, dehydration. CONSULTANTS: pulmonary Dr. Garcia GI specialist Dr. Flores psychiatrist [facility] COURSE: Patient admitted to the floor. Patient started on the IV fluids. GI closely followed . Stool for C. difficile was negative. Patient had chronic diarrhea , managed with combination of Imodium and Lomotil. Patient declined colonoscopy and HIDA scan. Patient was provided with lactose-free diet. Celiac panel was obtained. Antiemetics provided as needed. Patient was able to tolerate diet. Patient was on PPI. LFT and bilirubin were closely monitored, trended down. Prior to discharge total bili down to 1.1, AST and ALT within normal limits. Albumin 3.3. Dietary evaluation was requested regarding nutritional supplements, and dietary recommendations subsequently were implemented in plan of care. Venous duplex bilateral lower extremity revealed no acute DVT. Patient already had IVC filter as evident on CT of the abdomen and pelvis. Supplemental oxygen provided as needed to keep pulse oximetry above 92%. Pain management was addressed and pain was controlled. Electrolytes and renal parameters were closely monitored. Electrolytes were corrected as needed , specifically magnesium. Nephrotoxins were avoided. Hemoglobin and hematocrit were closely monitored with goal to keep hemoglobin above 7. Prior to discharge hemoglobin 9.8 and hematocrit 29.2. Supportive care provided. Blood pressure was closely monitored. Patient was working with physical and occupational therapists. Diarrhea subsided. Psychiatrist closely followed and diagnosed patient with anxiety disorder. Patient was provided with reality orientation. Anxiolytics provided as needed. Patient clinically improved. Patient was stable for discharge home FINAL DIAGNOSES: Abdominal pain with nausea and diarrhea Dehydration Amyloidosis of GI tract Multiple myeloma Anemia of chronic disease Hypomagnesemia History of prostate cancer Hypertension Protein calorie malnutrition Elevated bilirubin Anxiety disorder DISCHARGE MEDICATIONS: See Medication Reconciliation list. DISCHARGE INSTRUCTIONS: Patient was discharged home follow-up with a primary care provider in one week Aileen Alejandra NP Dec 08, 2017 15:07
== END 2017-12-06 12:15 | disposition home or self-care (01) | DRG 392 ==
LOC: EDBD 15:29 → EDBEDREQ 19:33 → EMR 19:54 → 4E 19:59 → EDBEDREQ 20:51
DX: R10.9 Unspecified abdominal pain (principal); C90.00 Multiple myeloma not having achieved remission; E85.89 Other amyloidosis; E46 Unspecified protein-calorie malnutrition; I10 Essential (primary) hypertension; D63.8 Anemia in other chronic diseases classified elsewhere; Z85.46 Personal history of malignant neoplasm of prostate; I25.10 Atherosclerotic heart disease of native coronary artery without angina pectoris; Z95.1 Presence of aortocoronary bypass graft; R11.0 Nausea; E86.0 Dehydration; E83.42 Hypomagnesemia; F41.9 Anxiety disorder, unspecified; I25.2 Old myocardial infarction; B02.9 Zoster without complications
CPT/HCPCS: 36415; 71045; 74177; 76700; 80048; 80053; 81003; 82150; 82248; 82306; 83516; 83605; 83690; 83735; 83880; 84100; 84484; 85025; 85730; 87081; 87324; 93005; 93970; 94664; 97802; 99285; J2405